=== PATIENT | male | born 1950 | race Caucasian/White ===

== ENCOUNTER 2020-09-29 05:57 | Observation (INO) | payer MEDICARE, MEDICAID, SELFPAY ==
[2020-09-29] VITALS (18 sets, daily range): BP systolic 112–161; BP diastolic 67–93; PULSE 63–86; RESP 18–32; TEMP 35.9–36.8; O2SAT 94–99; BMI 38.5
--- NOTE | 2020-09-29 06:10 | ED.CHESTPAIN ---
HPI - Chest Pain <Keshia Bell, DO - Last Filed: 10/02/20 18:05> General Chief Complaint: Shortness of Breath/Dyspnea Stated Complaint: chest pain Time Seen by Provider: 09/29/20 06:10 Source: patient and EMS Mode of arrival: EMS Limitations: no limitations History of Present Illness HPI narrative: This is a 70-year-old male comes to the emergency department with complaint of increasing shortness of breath that has become significantly worse today. Patient states he has had slowly worsening shortness of breath orthopnea requiring him to sit more and more upright, patient has also has some chest discomfort although he states he does not pressure or pain in his chest at this time. Patient denies any fevers or chills. He has had some nasal congestion since he had his COVID vaccination September 18. Patient states he has a chronic cough which is nonproductive and has not changed. He denies any abdominal pain. He denies any diaphoresis, no nausea or vomiting. He denies any major changes to bowel movements, no melena or bright red blood. He has chronic urinary incontinence. He states he has had some swelling in his lower extremity extremities. Patient states his weight has also been increasing. Patient has had a history significant for pacemaker, cardiac stents x2 and aortic valve replacement he is on Eliquis chronically. He has no prostate cancer and has had radiation x2. Dyslipidemia, diabetes and hypertension. He also has history of restless legs syndrome and patient does use CPAP at his assisted living facility. He states his prior surgeries include back surgery. He is allergic to morphine, crab and carbidopa. He quit using tobacco and alcohol many years ago. He has not used any recreational drugs in 40 years. He follows with Dr. Alvares with the [facility] in [facility]. Related Data Home Medications Medication Instructions Recorded Confirmed Adult Multi plus [place]-3 1,000 mg PO BID 09/29/20 09/29/20 Mirapex 0.5 mg PO BEDTIME 09/29/20 09/29/20 Plavix 75 mg PO QAM 09/29/20 09/29/20 Zoloft 100 mg PO QAM 09/29/20 09/29/20 apixaban 5 mg PO BID 09/29/20 09/29/20 calcium carbonate 500 mg PO QAM 09/29/20 09/29/20 gabapentin 600 mg PO TID 09/29/20 09/29/20 insulin glargine 42 unit SUBCUT BEDTIME 09/29/20 09/29/20 insulin lispro See Rx Instructions .ROUTE .COMPLEX 09/29/20 09/29/20 metformin 500 mg PO BID 09/29/20 09/29/20 metoprolol succinate 12.5 mg PO QAM 09/29/20 09/29/20 pantoprazole 40 mg PO QAM 09/29/20 09/29/20 tolterodine [Detrol LA] 4 mg PO Q24H 09/29/20 09/29/20 Previous Rx's Medication Instructions Recorded furosemide [Lasix] 40 mg PO QAM 30 Days #60 tab 09/30/20 Allergies Allergy/AdvReac Type Severity Reaction Status Date / Time carbidopa Allergy Verified 09/29/20 06:08 crab Allergy Verified 09/29/20 06:07 morphine Allergy Verified 09/29/20 06:07 Review of Systems <Keshia Bell DO - Last Filed: 10/02/20 18:05> Review of Systems ROS Unobtainable: All systems reviewed & are unremarkable except as noted in HPI and below Patient History <Keshia Bell DO - Last Filed: 10/02/20 18:05> Medical History Pacemaker Surgical History H/O aortic valve replacement History of back surgery Social History household members: none Smoking Status: Former smoker Exam <Keshia Bell DO - Last Filed: 10/02/20 18:05> Narrative Exam Narrative: GENERAL: Alert and oriented x three, BMI of 38, elderly appearing male in mild to moderate distress. HEENT: Head normocephalic, atraumatic, EOMI, pupils reactive, face symmetric, moist mucous membranes NECK: Supple, full range of motion CARDIOVASCULAR: Regular rate and rhythm without murmurs, rubs or gallops. Trace edema bilateral lower extremities. RESPIRATORY: Breath sounds equal bilaterally, no wheezes rales or rhonchi. Patient is mildly tachypneic. Speaks is 5-6 word sentences. No accessory muscle use. ABDOMEN: Soft, nontender. Normoactive bowel sounds all 4 quadrants. No guarding or rebound, rigidity, no mass : No CVA tenderness EXTREMITIES: Normal range of motion, no clubbing.. Neurovascularly intact NEUROLOGICAL: Cranial nerves II through XII grossly intact. Moving all extremities SKIN: Warm, dry, no petechiae, no rashes or lesions. Initial Vital Signs Initial Vital Signs: Vital Signs Pulse Rate 84 09/29/20 06:00 Blood Pressure 156/84 H 09/29/20 06:00 Pulse Oximetry 96 09/29/20 06:00 <Delivn Chavarria MD - Last Filed: 09/29/20 09:50> Initial Vital Signs Initial Vital Signs: Vital Signs Pulse Rate 84 09/29/20 06:00 Blood Pressure 156/84 H 09/29/20 06:00 Pulse Oximetry 96 09/29/20 06:00 Course <Keshia Bell DO - Last Filed: 10/02/20 18:05> Orders Ordered: Discontinued Medications Acetaminophen (Acetaminophen 325 Mg Tablet) 650 mg PO Q6HR PRN PRN Reason: Fever/Mild Pain (1-3) Last Admin: 09/29/20 23:18 Dose: 650 mg Documented by: AILYN Acetaminophen (Acetaminophen 325 Mg Tablet) 650 mg PO Q4H PRN PRN Reason: Fever/Mild Pain (1-3) Last Admin: 09/30/20 03:50 Dose: 650 mg Documented by: UDAY Apixaban (Apixaban 5 Mg Tablet) 5 mg PO BID PENDING SALE TO [facility] Last Admin: 09/30/20 08:26 Dose: 5 mg Documented by: Admin: 09/29/20 21:03 Dose: 5 mg Documented by: Admin: 09/29/20 13:01 Dose: 5 mg Documented by: UDAY Clopidogrel Bisulfate (Clopidogrel 75 Mg Tablet) 75 mg PO DAILY PENDING SALE TO [facility] Last Admin: 09/30/20 09:31 Dose: 75 mg Documented by: Admin: 09/29/20 13:01 Dose: 75 mg Documented by: UDAY Dextrose (Dextrose 50 % In Water 25 Gm/50 Ml Syringe) 25 gm IV PRN PRN; Protocol PRN Reason: Hypoglycemia Furosemide (Furosemide 100 Mg/10 Ml Vial) 60 mg IV NOW ONE Stop: 09/29/20 06:41 Last Admin: 09/29/20 06:49 Dose: 60 mg Documented by: NAVDEEP Furosemide (Furosemide 40 Mg/4 Ml Vial) 40 mg IV 0500,1700 PENDING SALE TO [facility] Last Admin: 09/29/20 13:02 Dose: 40 mg Documented by: UDAY Furosemide (Furosemide 40 Mg/4 Ml Vial) 40 mg IV 0700,1900 PENDING SALE TO [facility] Last Admin: 09/30/20 06:43 Dose: 40 mg Documented by: Admin: 09/29/20 19:07 Dose: 40 mg Documented by: AILYN Gabapentin (Gabapentin 600 Mg Tablet) 600 mg PO TID PENDING SALE TO [facility] Last Admin: 09/30/20 08:26 Dose: 600 mg Documented by: Admin: 09/29/20 21:03 Dose: 600 mg Documented by: Admin: 09/29/20 14:25 Dose: 600 mg Documented by: UDAY Insulin Aspart (Insulin Aspart 100 Unit/Ml Insuln Pen) 0 unit SUBCUT ACHS PENDING SALE TO [facility]; Protocol Last Admin: 09/30/20 13:24 Dose: Not Given Documented by: Admin: 09/30/20 09:16 Dose: 1 unit Documented by: UDAY Cosigned by: STEFFI Admin: 09/29/20 20:36 Dose: Not Given Documented by: Admin: 09/29/20 16:58 Dose: 1 unit Documented by: AILYN Catalanigned by: LUCRETIA Insulin Glargine (Insulin Glargine 100 Unit/Ml 3ml Pen) 40 unit SUBCUT BEDTIME PENDING SALE TO [facility] Last Admin: 09/29/20 21:03 Dose: 40 unit Documented by: AILYN Catalanigned by: GPMARIAH Metoprolol Succinate (Metoprolol Er 25 Mg Tablet) 12.5 mg PO DAILY PENDING SALE TO [facility] Last Admin: 09/30/20 08:26 Dose: 12.5 mg Documented by: Admin: 09/29/20 13:01 Dose: 12.5 mg Documented by: UDAY Potassium Chloride (Potassium Chloride 20 Meq Tab) 40 meq PO NOW ONE Stop: 09/30/20 09:25 Last Admin: 09/30/20 09:31 Dose: 40 meq Documented by: UDAY Sertraline HCl (Sertraline 50 Mg Tablet) 100 mg PO DAILY PENDING SALE TO [facility] Last Admin: 09/30/20 08:27 Dose: 100 mg Documented by: Admin: 09/29/20 13:01 Dose: 100 mg Documented by: UDAY Sodium Chloride (Sodium Chloride 0.9% Flush) 10 ml IV PRN PRN PRN Reason: Flush Sodium Chloride (Sodium Chloride 0.9% Flush) 10 ml IV BID PENDING SALE TO [facility] Last Admin: 09/30/20 08:27 Dose: 10 ml Documented by: Admin: 09/29/20 21:03 Dose: 10 ml Documented by: AILYN Vital Signs Vital signs: Vital Signs - 8 hr 09/29/20 06:00 09/29/20 06:08 09/29/20 06:30 Temperature 98.2 F Pulse Rate 84 86 67 Respiratory Rate 26 H 30 H Blood Pressure 156/84 H 156/84 H 143/67 H Pulse Oximetry 96 96 95 09/29/20 07:00 09/29/20 07:30 09/29/20 08:00 Temperature Pulse Rate 75 78 67 Respiratory Rate 24 30 H 23 Blood Pressure 144/71 H 149/80 H 161/79 H Pulse Oximetry 97 97 98 <Delvin Chavarria MD - Last Filed: 09/29/20 09:50> Course Course Narrative: 7:00 a.m.. Sign-out from Dr. bell labs are pending. Likely admit for CHF exacerbation. Decision to Admit Date: 09/29/20 Decision to Admit time: 08:09 Orders Ordered: Discontinued Medications Acetaminophen (Acetaminophen 325 Mg Tablet) 650 mg PO Q6HR PRN PRN Reason: Fever/Mild Pain (1-3) Last Admin: 09/29/20 23:18 Dose: 650 mg Documented by: AILYN Acetaminophen (Acetaminophen 325 Mg Tablet) 650 mg PO Q4H PRN PRN Reason: Fever/Mild Pain (1-3) Last Admin: 09/30/20 03:50 Dose: 650 mg Documented by: UDAY Apixaban (Apixaban 5 Mg Tablet) 5 mg PO BID PENDING SALE TO [facility] Last Admin: 09/30/20 08:26 Dose: 5 mg Documented by: Admin: 09/29/20 21:03 Dose: 5 mg Documented by: Admin: 09/29/20 13:01 Dose: 5 mg Documented by: UDAY Clopidogrel Bisulfate (Clopidogrel 75 Mg Tablet) 75 mg PO DAILY PENDING SALE TO [facility] Last Admin: 09/30/20 09:31 Dose: 75 mg Documented by: Admin: 09/29/20 13:01 Dose: 75 mg Documented by: UDAY Dextrose (Dextrose 50 % In Water 25 Gm/50 Ml Syringe) 25 gm IV PRN PRN; Protocol PRN Reason: Hypoglycemia Furosemide (Furosemide 100 Mg/10 Ml Vial) 60 mg IV NOW ONE Stop: 09/29/20 06:41 Last Admin: 09/29/20 06:49 Dose: 60 mg Documented by: NAVDEEP Furosemide (Furosemide 40 Mg/4 Ml Vial) 40 mg IV 0500,1700 PENDING SALE TO [facility] Last Admin: 09/29/20 13:02 Dose: 40 mg Documented by: UDAY Furosemide (Furosemide 40 Mg/4 Ml Vial) 40 mg IV 0700,1900 PENDING SALE TO [facility] Last Admin: 09/30/20 06:43 Dose: 40 mg Documented by: Admin: 09/29/20 19:07 Dose: 40 mg Documented by: AILYN Gabapentin (Gabapentin 600 Mg Tablet) 600 mg PO TID PENDING SALE TO [facility] Last Admin: 09/30/20 08:26 Dose: 600 mg Documented by: Admin: 09/29/20 21:03 Dose: 600 mg Documented by: Admin: 09/29/20 14:25 Dose: 600 mg Documented by: UDAY Insulin Aspart (Insulin Aspart 100 Unit/Ml Insuln Pen) 0 unit SUBCUT ACHS PENDING SALE TO [facility]; Protocol Last Admin: 09/30/20 13:24 Dose: Not Given Documented by: Admin: 09/30/20 09:16 Dose: 1 unit Documented by: UDAY Cosigned by: STEFFI Admin: 09/29/20 20:36 Dose: Not Given Documented by: Admin: 09/29/20 16:58 Dose: 1 unit Documented by: AILYN Tillman by: LLANTKavya Insulin Glargine (Insulin Glargine 100 Unit/Ml 3ml Pen) 40 unit SUBCUT BEDTIME PENDING SALE TO [facility] Last Admin: 09/29/20 21:03 Dose: 40 unit Documented by: AILYN Catalanigned by: GPEREZ Metoprolol Succinate (Metoprolol Er 25 Mg Tablet) 12.5 mg PO DAILY PENDING SALE TO [facility] Last Admin: 09/30/20 08:26 Dose: 12.5 mg Documented by: Admin: 09/29/20 13:01 Dose: 12.5 mg Documented by: UDAY Potassium Chloride (Potassium Chloride 20 Meq Tab) 40 meq PO NOW ONE Stop: 09/30/20 09:25 Last Admin: 09/30/20 09:31 Dose: 40 meq Documented by: UDAY Sertraline HCl (Sertraline 50 Mg Tablet) 100 mg PO DAILY PENDING SALE TO [facility] Last Admin: 09/30/20 08:27 Dose: 100 mg Documented by: Admin: 09/29/20 13:01 Dose: 100 mg Documented by: UDAY Sodium Chloride (Sodium Chloride 0.9% Flush) 10 ml IV PRN PRN PRN Reason: Flush Sodium Chloride (Sodium Chloride 0.9% Flush) 10 ml IV BID PENDING SALE TO [facility] Last Admin: 09/30/20 08:27 Dose: 10 ml Documented by: Admin: 09/29/20 21:03 Dose: 10 ml Documented by: AILYN Reevaluation(s) Reevaluation #1: Reviewed results with patient. He states he has been short of breath in the past week. Feels like CHF exacerbation/fluid overload. Swelling of the ankles uncommon for him. He agrees with admission Time: 08:10 Consultations Consultation #1: Spoke with hospitalist, Dr. Bowen, will admit Time: 08:13 Vital Signs Vital signs: Vital Signs - 8 hr 09/29/20 06:00 09/29/20 06:08 09/29/20 06:30 Temperature 98.2 F Pulse Rate 84 86 67 Respiratory Rate 26 H 30 H Blood Pressure 156/84 H 156/84 H 143/67 H Pulse Oximetry 96 96 95 09/29/20 07:00 09/29/20 07:30 09/29/20 08:00 Temperature Pulse Rate 75 78 67 Respiratory Rate 24 30 H 23 Blood Pressure 144/71 H 149/80 H 161/79 H Pulse Oximetry 97 97 98 MDM - Chest Pain <Keshia Bell DO - Last Filed: 10/02/20 18:05> Lab Data Attestation: I reviewed the patient's lab results. Result diagrams: 09/30/20 05:15 09/30/20 05:15 Labs: Lab Results 09/29/20 09/29/20 09/29/20 Range/Units 05:55 05:55 06:00 WBC 9.4 (4.5-11.0) X10^3/uL RBC 4.58 (4.5-5.9) X10^6/uL Hgb 10.8 L (13.5-17.5) g/dL Hct 33.9 L (41-53) % MCV 74.0 L (80-100) fL MCH 23.5 L (26-34) PG MCHC 31.8 (30-36) % RDW 16.9 H (11.6-14.8) % Plt Count TNP Neut % (Auto) 72.3 (50-75) % Lymph % (Auto) 15.8 L (25-40) % [place] % (Auto) 7.1 (3-14) % Eos % (Auto) 3.8 (2-4) % Baso % (Auto) 1.0 (0-2) % Neut # (Auto) 6800 (8855-6446) /uL Lymph # (Auto) 1500 (5189-4498) /uL [place] # (Auto) 700 (0-900) /uL Eos # (Auto) 400 (0-450) /uL Baso # (Auto) 100 (0-100) /uL Platelet Estimate Adequate on smear Plt Morphology Comment RBC Morphology See below Hypochromasia 1+ H Anisocytosis 1+ H Microcytosis 1+ H Ovalocytes 1+ H PT (10.1-12.7) SECONDS INR (0.9-1.3) APTT (26.4-36.2) SECONDS D-Dimer (<230) ng/mL Sodium 140 (137-145) mmol/L Potassium 3.9 (3.4-5.1) mmol/L Chloride 107 (98-107) mmol/L Carbon Dioxide 23 (22-32) mmol/L BUN 16 (9-20) mg/dL Creatinine 1.29 H (0.66-1.25) mg/dL Estimated GFR 54.7 L (>60) mL/min BUN/Creatinine Ratio 12.4 (6-22) Glucose 170 H (80-110) mg/dL Calcium 9.0 (8.4-10.2) mg/dL Total Bilirubin 0.3 (0.2-1.3) mg/dL AST 21 (17-59) IU/L ALT 14 (<50) IU/L Alkaline Phosphatase 83 (38-126) U/L Total Creatine Kinase 28 L (55-170) U/L CK-MB (CK-2) TNP CK-MB (CK-2) Rel Index TNP Troponin I 0.032 (0.01-0.034) ng/mL NT-Pro-B Natriuret Pep 3730 H (<125) pg/mL Total Protein 6.9 (6.3-8.2) g/dL Albumin 4.0 (3.5-5.0) g/dL Globulin 2.9 (1.7-4.1) g/dL Albumin/Globulin Ratio 1.4 (1.0-2.8) Lipase 122 (23-300) U/L SARS-CoV-2 (PCR) Negative (Negative) 09/29/20 09/29/20 Range/Units 06:20 08:05 WBC (4.5-11.0) X10^3/uL RBC (4.5-5.9) X10^6/uL Hgb (13.5-17.5) g/dL Hct (41-53) % MCV (80-100) fL MCH (26-34) PG MCHC (30-36) % RDW (11.6-14.8) % Plt Count Neut % (Auto) (50-75) % Lymph % (Auto) (25-40) % [place] % (Auto) (3-14) % Eos % (Auto) (2-4) % Baso % (Auto) (0-2) % Neut # (Auto) (5800-3555) /uL Lymph # (Auto) (3527-3724) /uL [place] # (Auto) (0-900) /uL Eos # (Auto) (0-450) /uL Baso # (Auto) (0-100) /uL Platelet Estimate Plt Morphology Comment RBC Morphology Hypochromasia Anisocytosis Microcytosis Ovalocytes PT 13.4 H (10.1-12.7) SECONDS INR 1.2 (0.9-1.3) APTT 35 (26.4-36.2) SECONDS D-Dimer 206 (<230) ng/mL Sodium (137-145) mmol/L Potassium (3.4-5.1) mmol/L Chloride (98-107) mmol/L Carbon Dioxide (22-32) mmol/L BUN (9-20) mg/dL Creatinine (0.66-1.25) mg/dL Estimated GFR (>60) mL/min BUN/Creatinine Ratio (6-22) Glucose (80-110) mg/dL Calcium (8.4-10.2) mg/dL Total Bilirubin (0.2-1.3) mg/dL AST (17-59) IU/L ALT (<50) IU/L Alkaline Phosphatase (38-126) U/L Total Creatine Kinase (55-170) U/L CK-MB (CK-2) CK-MB (CK-2) Rel Index Troponin I 0.028 (0.01-0.034) ng/mL NT-Pro-B Natriuret Pep (<125) pg/mL Total Protein (6.3-8.2) g/dL Albumin (3.5-5.0) g/dL Globulin (1.7-4.1) g/dL Albumin/Globulin Ratio (1.0-2.8) Lipase (23-300) U/L SARS-CoV-2 (PCR) (Negative) Imaging Data Chest x-ray: Attestation: I personally reviewed and interpreted this imaging study as follows: My Impression: cardiomegaly, pacemaker with wires in place. CHF. ECG Data Attestation: I personally reviewed and interpreted this ECG as follows: Interpretation: Ventricularly paced rhythm, rate 82 QRS of 214, QTC of 586. No prior available. MDM Narrative Medical decision making narrative: This is a 70 year old male with complaint of shortness of breath. Patient has had slowly worsening symptoms consistent with CHF. He is hospitalized and is not particularly ambulatory so D-dimer was included which is negative. BNP is quite elevated with a consistent chest x-ray. Troponin appropriate range and patient has not had any hypoxia here in the department at this time. Patient received Lasix. Patient was signed out to Dr. Chavarria while awaiting repeat troponin and observation for final disposition. <Delvin Chavarria MD - Last Filed: 09/29/20 09:50> Differential Diagnosis Differential diagnosis: Likely atypical chest pain and other (CHF exacerbation) Medical Records Data Attestation: I reviewed the patient's medical records. Lab Data Attestation: I reviewed the patient's lab results. Labs: Lab Results 09/29/20 09/29/20 09/29/20 Range/Units 05:55 05:55 06:00 WBC 9.4 (4.5-11.0) X10^3/uL RBC 4.58 (4.5-5.9) X10^6/uL Hgb 10.8 L (13.5-17.5) g/dL Hct 33.9 L (41-53) % MCV 74.0 L (80-100) fL MCH 23.5 L (26-34) PG MCHC 31.8 (30-36) % RDW 16.9 H (11.6-14.8) % Plt Count TNP Neut % (Auto) 72.3 (50-75) % Lymph % (Auto) 15.8 L (25-40) % [place] % (Auto) 7.1 (3-14) % Eos % (Auto) 3.8 (2-4) % Baso % (Auto) 1.0 (0-2) % Neut # (Auto) 6800 (3601-8035) /uL Lymph # (Auto) 1500 (8663-7012) /uL [place] # (Auto) 700 (0-900) /uL Eos # (Auto) 400 (0-450) /uL Baso # (Auto) 100 (0-100) /uL Platelet Estimate Adequate on smear Plt Morphology Comment RBC Morphology See below Hypochromasia 1+ H Anisocytosis 1+ H Microcytosis 1+ H Ovalocytes 1+ H PT (10.1-12.7) SECONDS INR (0.9-1.3) APTT (26.4-36.2) SECONDS D-Dimer (<230) ng/mL Sodium 140 (137-145) mmol/L Potassium 3.9 (3.4-5.1) mmol/L Chloride 107 (98-107) mmol/L Carbon Dioxide 23 (22-32) mmol/L BUN 16 (9-20) mg/dL Creatinine 1.29 H (0.66-1.25) mg/dL Estimated GFR 54.7 L (>60) mL/min BUN/Creatinine Ratio 12.4 (6-22) Glucose 170 H (80-110) mg/dL Calcium 9.0 (8.4-10.2) mg/dL Total Bilirubin 0.3 (0.2-1.3) mg/dL AST 21 (17-59) IU/L ALT 14 (<50) IU/L Alkaline Phosphatase 83 (38-126) U/L Total Creatine Kinase 28 L (55-170) U/L CK-MB (CK-2) TNP CK-MB (CK-2) Rel Index TNP Troponin I 0.032 (0.01-0.034) ng/mL NT-Pro-B Natriuret Pep 3730 H (<125) pg/mL Total Protein 6.9 (6.3-8.2) g/dL Albumin 4.0 (3.5-5.0) g/dL Globulin 2.9 (1.7-4.1) g/dL Albumin/Globulin Ratio 1.4 (1.0-2.8) Lipase 122 (23-300) U/L SARS-CoV-2 (PCR) Negative (Negative) 09/29/20 09/29/20 Range/Units 06:20 08:05 WBC (4.5-11.0) X10^3/uL RBC (4.5-5.9) X10^6/uL Hgb (13.5-17.5) g/dL Hct (41-53) % MCV (80-100) fL MCH (26-34) PG MCHC (30-36) % RDW (11.6-14.8) % Plt Count Neut % (Auto) (50-75) % Lymph % (Auto) (25-40) % [place] % (Auto) (3-14) % Eos % (Auto) (2-4) % Baso % (Auto) (0-2) % Neut # (Auto) (2826-7426) /uL Lymph # (Auto) (4171-7918) /uL [place] # (Auto) (0-900) /uL Eos # (Auto) (0-450) /uL Baso # (Auto) (0-100) /uL Platelet Estimate Plt Morphology Comment RBC Morphology Hypochromasia Anisocytosis Microcytosis Ovalocytes PT 13.4 H (10.1-12.7) SECONDS INR 1.2 (0.9-1.3) APTT 35 (26.4-36.2) SECONDS D-Dimer 206 (<230) ng/mL Sodium (137-145) mmol/L Potassium (3.4-5.1) mmol/L Chloride (98-107) mmol/L Carbon Dioxide (22-32) mmol/L BUN (9-20) mg/dL Creatinine (0.66-1.25) mg/dL Estimated GFR (>60) mL/min BUN/Creatinine Ratio (6-22) Glucose (80-110) mg/dL Calcium (8.4-10.2) mg/dL Total Bilirubin (0.2-1.3) mg/dL AST (17-59) IU/L ALT (<50) IU/L Alkaline Phosphatase (38-126) U/L Total Creatine Kinase (55-170) U/L CK-MB (CK-2) CK-MB (CK-2) Rel Index Troponin I 0.028 (0.01-0.034) ng/mL NT-Pro-B Natriuret Pep (<125) pg/mL Total Protein (6.3-8.2) g/dL Albumin (3.5-5.0) g/dL Globulin (1.7-4.1) g/dL Albumin/Globulin Ratio (1.0-2.8) Lipase (23-300) U/L SARS-CoV-2 (PCR) (Negative) Imaging Data Chest x-ray: Radiologist's Impression: [address] [id number] ReportSigned Patient: Michela Álvarez#: [id number]: 8Acct:[id number]/Sex: 70 / MDate of Service: 09/29/20Loc: EDAccession Number: [id number] Procedure: XR chest 1V Ordering Provider: Keshia Bell D.O. PROCEDURE: XR CHEST 1V INDICATIONS: Short of breath, worsening orthopnea TECHNIQUE: One view of the chest was acquired. COMPARISON: [facility], CR, XR CHEST 1 VIEW, 07/27/2020, 18:06. [facility], CR, XR CHEST 1 VIEW, 04/02/2020, 17:27. [facility], CR, XR CHEST 1 VIEW, 04/01/2020, 16:24. FINDINGS: Surgical changes and devices: A pacer device is seen. The leads are seen in stable positions. A percutaneously placed aortic valve replacement can be seen. Lungs and pleura: Low lung volumes are noted. This causes a crowded appearance to the lung markings and limits evaluation. Generalized interstitial prominence is seen. Trace pleural are seen Mediastinum: Mediastinal contours appear normal. Heart size is mildly enlarged. Bones and chest wall: No suspicious bony lesions. Age-appropriate bony degenerative changes are seen. Overlying soft tissues appear unremarkable. IMPRESSION: Mild cardiomegaly interstitial prominence and pleural effusions. Please correlate with patient presentation, physical examination findings, and laboratory values for congestive heart failure. Postoperative and degenerative changes are seen. Note: This case (including differences between this final report and the preliminary report) discussed by telephone with Dr. Chavarria at 6:45 a.m. [place] time on September 29, 2020. Dictated by: Yong Morley M.D. on 09/29/2020 at 6:43 Approved by: Yong Morley M.D. on 09/29/2020 at 6:46 ECG Data Attestation: I personally reviewed and interpreted this ECG as follows: Interpretation: Ventricular paced rhythm rate 82, no ST elevation or depression MDM Narrative Medical decision making narrative: Appropriate for admission. Patient will need diuresis for CHF exacerbation. Patient agrees with treatment plan. Discharge Plan Departure Patient Disposition: Admitted as Observation Clinical Impression: Congestive heart failure Qualifiers: Heart failure type: unspecified Heart failure chronicity: unspecified Qualified Code(s): I50.9 - Heart failure, unspecified Admit Date/Time: 09/29/20 08:12 Admit Provider: He Culp
[2020-09-29 06:21] LABS: Alanine Aminotransferase 14 IU/L (<50); Albumin Globulin Ratio 1.4 (1.0-2.8); Alkaline Phosphatase 83 U/L (38-126); Aspartate Aminotransferase 21 IU/L (17-59); BUN Creatinine Ratio 12.4 (6-22); Bilirubin Total 0.3 mg/dL (0.2-1.3); Blood Urea Nitrogen 16 mg/dL (9-20); Carbon Dioxide 23 mmol/L (22-32); Chloride 107 mmol/L (98-107); Creatine Kinase 28 U/L (55-170); Estimated Glomerular Filt Rate 54.7 mL/min (>60); Globulin 2.9 g/dL (1.7-4.1); Glucose 170 mg/dL (80-110); HEMOLYSIS < 15 (0-50); Lipase 122 U/L (23-300); Potassium 3.9 mmol/L (3.4-5.1); Sodium 140 mmol/L (137-145); Total Protein 6.9 g/dL (6.3-8.2)
[2020-09-29 06:33] LABS: Basophils Absolute Auto 100 /uL (0-100); Eosinophils Absolute Auto 400 /uL (0-450); Eosinophils Percent Auto 3.8 % (2-4); Hematocrit 33.9 % (41-53); Hemoglobin 10.8 g/dL (13.5-17.5); Lymphocytes Absolute Auto 1500 /uL (1100-4500); Lymphocytes Percent Auto 15.8 % (25-40); Mean Corpuscular HGB Conc 31.8 % (30-36); Mean Corpuscular Hemoglobin 23.5 PG (26-34); Monocytes Absolute Auto 700 /uL (0-900); Monocytes Percent Auto 7.1 % (3-14); Neutrophils Absolute Auto 6800 /uL (1500-7000); Neutrophils Percent Auto 72.3 % (50-75); Red Blood Cell Count 4.58 X10^6/uL (4.5-5.9); Red Cell Distribution Width 16.9 % (11.6-14.8); White Blood Cell Count 9.4 X10^3/uL (4.5-11.0)
[2020-09-29 06:34] LABS: NT-proBNP (BNP-Adult 18+) 3730 pg/mL (<125); Troponin I 0.032 ng/mL (0.01-0.034)
[2020-09-29 06:40] LABS: Add Manual Diff / Slide Review SLIDE REVIEW
[2020-09-29 06:47] LABS: INR 1.2 (0.9-1.3); Prothrombin Time 13.4 SECONDS (10.1-12.7)
[2020-09-29 06:49] LABS: PTT Partial Thromboplastin Tim 35 SECONDS (26.4-36.2)
[2020-09-29] MEDS: FUROSEMIDE 100 MG/10 ML VIAL 60 MG IV (06:49)
[2020-09-29 06:50] LABS: D Dimer 206 ng/mL (<230)
[2020-09-29 07:12] LABS: COVID19 - ADMIT (NP swab/PCR) Negative (Negative)
[2020-09-29 07:30] LABS: Anisocytosis 1+; Hypochromasia 1+; Microcytosis 1+; Platelet Estimate Adequate on smear
[2020-09-29 07:31] LABS: Ovalocytes 1+
[2020-09-29 08:46] LABS: Troponin I 0.028 ng/mL (0.01-0.034)
--- NOTE | 2020-09-29 11:48 | DI.ECHO.S_ITS ---
[place]---------+ [facility] +---------+ : : [address] : [address] : : : : [id number] : : : : Phone: [phone]+ Echocardiogram Report + + :Name: SREEDHAR PALACIO Study Date: 09/29/2020 Height: 69 in : :[facility] ReadingLocation: Weight: 261 lb : : Gender: Male BSA: 2.3 m2 : :: 1950 Age: 70 yrs BP: 130/77 mmHg: :Reason For Study: Congestive Heart Failure : :Ordering Physician: : :ALLA HERNANDEZ Performed By: Lior Obrien : :Referring: ALLA HERNANDEZ : + + Interpretation Summary 1) Severely dilated left ventricular enlargement with moderately increased thickness (concentric) and severely reduced systolic function (EF 20-25%). 2) Normal right ventricular size and function. There is a pacemaker lead in the right ventricle. 3) There ronnie prosthetic aortic valve that is well-seated and opens well. Mean gradient across the valve is 15.6mmHg (normal for this kind of valve). 4) Compared to the Echo done 07/28/2020, no significant change when compared visually. Procedure: A two-dimensional transthoracic echocardiogram with color flow and Doppler was performed. The study quality was technically adequate. Comparison is made with the echocardiogram of 07/28/2020. A contrast injection of Definity was performed to improve assessment of LV function. The patient was in sinus rhythm with heart rates between 65-72 bpm during the exam. Left Ventricle: The left ventricle is severely dilated. There is moderate concentric left ventricular hypertrophy. Left ventricular systolic function is severely reduced. The ejection fraction is estimated to be 20-25%. There is severe global hypokinesis of the left ventricle. There is a significant dyssynchronous contraction pattern due to the paced rhythm. Diastolic function could not be accurately assessed due to unobtainable data. Right Ventricle: The right ventricle is normal in size and function. There is a pacemaker lead in the right ventricle. Atria: Both atria are normal in size. There is no Doppler evidence for an interatrial shunt. Mitral Valve: The mitral valve is normal in structure and function. There is mild mitral regurgitation. Aortic Valve: The prosthetic aortic valve is well-seated. The aortic valve mean gradient is 15.6 mmHg. No aortic regurgitation is present. Tricuspid Valve: The tricuspid valve is normal in structure and function. There is mild tricuspid regurgitation. Pulmonary artery pressures cannot be estimated because of the lack of a measurable TR jet velocity but the IVC suggests a CVP of around 8 mmHg. Pulmonic Valve: The pulmonic valve is not well visualized. There is trace pulmonic regurgitation. Great Vessels: The aortic root is not well visualized. The dimensions of the ascending aorta are normal. The IVC is dilated (diameter is greater than 2.1 cm) yet it collapses greater than 50% with a sniff. This suggests a right atrial pressure of 8 mm Hg. Pericardium/ Pleura There is no pericardial effusion. There is an anterior echo-free space consistent with a fat pad. There is no pleural effusion. MMode/2D Measurements & Calculations LVIDd: 7.1 cm asc Aorta Diam: 3.5 cm LVIDs: 6.1 cm FS: 13.6 % IVSd: 1.5 cm LVPWd: 1.6 cm LV ramirez. diameter/BSA (cm/m^2): 3.0 LV sys. diameter/BSA (cm/m^2): 2.6 LA A2 area: 21.8 cm2 RA long axis: 4.9 cm LA A4 area: 27.2 cm2 RA area: 15.6 cm2 LA length (vol): 6.5 cm RA vol: 41.9 ml LA vol: 78.1 ml RA : 18.1 ml/m2 LA vol index: 33.8 ml/m2 IVC diam: 2.5 cm TAPSE: 2.3 cm Doppler Measurements & Calculations Ao V2 max: 282.9 cm/sec LVOT Max Jasbir: 99.1 cm/sec Ao V2 mean: 184.1 cm/sec LV V1 max P.9 mmHg Ao max P.0 mmHg LV V1 VTI: 22.3 cm Ao mean P.6 mmHg sev ratio: 0.41 Ao V2 VTI: 54.6 cm MV E max jasbir: 67.6 cm/sec PA V2 max: 100.9 cm/sec MV A max jasbir: 93.9 cm/sec PA V2 mean: 73.9 cm/sec MV E/A: 0.72 PA mean P.4 mmHg Med Peak E' Jasbir: 3.5 cm/sec PA pr(Accel): 35.3 mmHg E/E' med: 19.2 Lat Peak E' Jasbir: 5.3 cm/sec E/E' lat: 12.8 E/e' average: 16.0 MV dec time: 0.19 sec Reading Physician:02:48 PM
[2020-09-29] MEDS: APIXABAN 5 MG TABLET PO ×2 (13:01→21:03)
[2020-09-29] MEDS: CLOPIDOGREL 75 MG TABLET PO (13:01)
[2020-09-29] MEDS: SERTRALINE 50 MG TABLET 100 MG PO (13:01)
[2020-09-29] MEDS: METOPROLOL ER 25 MG TABLET 12.5 MG PO (13:01)
[2020-09-29] MEDS: FUROSEMIDE 40 MG/4 ML VIAL IV ×2 (13:02→19:07)
[2020-09-29] MEDS: GABAPENTIN 600 MG TABLET PO ×2 (14:25→21:03)
[2020-09-29] MEDS: INSULIN ASPART 100 UNIT/ML INSULN PEN SUBCUT (16:58)
[2020-09-29] MEDS: SODIUM CHLORIDE 0.9% FLUSH 10 ML IV (21:03)
[2020-09-29] MEDS: INSULIN GLARGINE 100 UNIT/ML 3ML PEN 40 UNIT SUBCUT (21:03)
--- NOTE | 2020-09-29 22:09 | PM.HP.1 ---
History of Present Illness History of Present Illness Chief complaint: chest pain Narrative: Mr. Álvarez is a 70M with PMH CHF, CAD, s/p AVR, s/p PPM, DM on insulin, GERD, depression, prostate CA, restless leg who comes in with progressive shortness of breath. He noted that within the last two weeks he has developed worsening shortness of breath first noted with exertion. Now has noted shortness of breath while lying down. He has lower extremity edema. He has noted he has gained weight, and he has a dry cough. No fevers/chills. No chest pain. He has recently been living at a facility and as has meals prepared for him thinks his eating has been more healthy. He presented to the ED, he was noted to be tachypneic in the 20s, and prior to arrival was noted to be satting in the 80s. He was placed on oxygen. Workup was done that showed an EKG with paced rhythm. Labs notable for creatinine of 1.29 with unclear baseline. troponin was 0.032 then 0.028. BNP was 3730. Cxray showed cardiomegaly and pleural effusions. He was given a dose of lasix and admitted for further treatment. Patient History Medical History Pacemaker Surgical History H/O aortic valve replacement History of back surgery Family & Social History Social History: household members none Prior Living Arrangements Assisted Living Safety & Behavioral: Feels Safe in Current Yes Environment Been Physically Hurt or No Threatened By a Person Suicidal Ideation Description None Suicide Plan Description No Plan Tobacco & Substance use: Smoking Status Former smoker Substance Use Type former substance user Meds Home Medications and Allergies Home Medications Medication Instructions Recorded Confirmed Type Adult Multi plus [place]-3 1,000 mg PO BID 09/29/20 09/29/20 History Mirapex 0.5 mg PO BEDTIME 09/29/20 09/29/20 History Plavix 75 mg PO QAM 09/29/20 09/29/20 History Zoloft 100 mg PO QAM 09/29/20 09/29/20 History apixaban 5 mg PO BID 09/29/20 09/29/20 History calcium carbonate 500 mg PO QAM 09/29/20 09/29/20 History furosemide [Lasix] 20 mg PO QAM 09/29/20 09/29/20 History gabapentin 600 mg PO TID 09/29/20 09/29/20 History insulin glargine 42 unit SUBCUT BEDTIME 09/29/20 09/29/20 History insulin lispro See Rx Instructions .ROUTE .COMPLEX 09/29/20 09/29/20 History metformin 500 mg PO BID 09/29/20 09/29/20 History metoprolol succinate 12.5 mg PO QAM 09/29/20 09/29/20 History pantoprazole 40 mg PO QAM 09/29/20 09/29/20 History tolterodine [Detrol LA] 4 mg PO Q24H 09/29/20 09/29/20 History Allergies Allergy/AdvReac Type Severity Reaction Status Date / Time carbidopa Allergy Verified 09/29/20 06:08 crab Allergy Verified 09/29/20 06:07 morphine Allergy Verified 09/29/20 06:07 Review of Systems Review of Systems Narrative: 14 systems reviewed and negative aside from HPI Exam Vital Signs (past 8 hours): - 09/29/20 14:26 09/29/20 15:00 09/29/20 15:05 Temperature 96.7 F L Pulse Rate 76 73 Respiratory Rate 19 Blood Pressure 133/73 112/93 H Pulse Oximetry 94 94 09/29/20 19:15 Temperature 97.6 F Pulse Rate 76 Respiratory Rate 18 Blood Pressure 154/93 H Pulse Oximetry 97 Oxygen Delivery Method Nasal Cannula Oxygen Flow Rate 0 Narrative Exam Narrative: GEN: no acute distress HEENT: PERRL, moist mucous membranes NECK: +jvd, trachea midline CV: RRR, no murmurs PULM: decreased sounds at bases, scattered crackles ABD: soft, nontender, nondistended, obese EXT: warm and well perfused, 1+ edema in feet NEURO: AAOx3, moving all extremities PSCYH: pleasant mood Objective Labs Result Diagrams: 09/29/20 05:55 09/29/20 05:55 Labs: Laboratory Results - last 24 hr 09/29/20 09/29/20 09/29/20 05:55 05:55 06:00 WBC 9.4 RBC 4.58 Hgb 10.8 L Hct 33.9 L MCV 74.0 L MCH 23.5 L MCHC 31.8 RDW 16.9 H Plt Count TNP Neut % (Auto) 72.3 Lymph % (Auto) 15.8 L [place] % (Auto) 7.1 Eos % (Auto) 3.8 Baso % (Auto) 1.0 Neut # (Auto) 6800 Lymph # (Auto) 1500 [place] # (Auto) 700 Eos # (Auto) 400 Baso # (Auto) 100 Platelet Estimate Adequate on smear Plt Morphology Comment RBC Morphology See below Hypochromasia 1+ H Anisocytosis 1+ H Microcytosis 1+ H Ovalocytes 1+ H PT INR APTT D-Dimer Sodium 140 Potassium 3.9 Chloride 107 Carbon Dioxide 23 BUN 16 Creatinine 1.29 H Estimated GFR 54.7 L BUN/Creatinine Ratio 12.4 Glucose 170 H Calcium 9.0 Total Bilirubin 0.3 AST 21 ALT 14 Alkaline Phosphatase 83 Total Creatine Kinase 28 L CK-MB (CK-2) TNP CK-MB (CK-2) Rel Index TNP Troponin I 0.032 NT-Pro-B Natriuret Pep 3730 H Total Protein 6.9 Albumin 4.0 Globulin 2.9 Albumin/Globulin Ratio 1.4 Lipase 122 SARS-CoV-2 (PCR) Negative 09/29/20 09/29/20 06:20 08:05 WBC RBC Hgb Hct MCV MCH MCHC RDW Plt Count Neut % (Auto) Lymph % (Auto) [place] % (Auto) Eos % (Auto) Baso % (Auto) Neut # (Auto) Lymph # (Auto) [place] # (Auto) Eos # (Auto) Baso # (Auto) Platelet Estimate Plt Morphology Comment RBC Morphology Hypochromasia Anisocytosis Microcytosis Ovalocytes PT 13.4 H INR 1.2 APTT 35 D-Dimer 206 Sodium Potassium Chloride Carbon Dioxide BUN Creatinine Estimated GFR BUN/Creatinine Ratio Glucose Calcium Total Bilirubin AST ALT Alkaline Phosphatase Total Creatine Kinase CK-MB (CK-2) CK-MB (CK-2) Rel Index Troponin I 0.028 NT-Pro-B Natriuret Pep Total Protein Albumin Globulin Albumin/Globulin Ratio Lipase SARS-CoV-2 (PCR) Assessment & Plan Assessment & Plan narrative: Mr. Álvarez is a 70M with PMH CAD, s/p PPM, s/p AVR, prostate CA, DM on insulin, HTN, restless leg who presents with shortness of breath and acute respiratory failure from CHF exacerbation. 1. Acute hypoxemic respiratory failure from Acute CHF exacerbation -clinical history of orthopnea, SOB, weight gain, with BNP high, and pleural effusions consistent with CHF -received lasix in ER and diuresed well -continue IV lasix BID -ECHO to eval EF, and functioning of AVR -monitor I/O closely -low Na diet 2. Type Diabetes on insulin -elevated blood sugar in the hospital -will continue on home dose of insulin -hold metformin for now with slightly elevated creatinine 3. Elevated creatinine -no baseline -creatinine today 1.54, GFR 55 -monitor daily to see if improvement 3. CAD s/p stents -no chest pain -chronic -continue plavix -no statin on med list, will need to clarity with patient 4. s/p PPM -chronic -EKG shows paced rhythm 5. s/p AVR -unclear if this is indication for apixaban -continue anticoagulation for now 6. Prostate cancer -chronic -outpatient follow up as needed, no acute issues 7. HTN -chronic -blood pressure controlled -continue metoprolol 8. Depression -chronic -continue zoloft 9. Restless leg -chronic -continue gabapentin DVT ppx: Full AC with apixaban IVF: None Diet: low na diet Code: Full, confirmed, proxy is daughter Arlet Dupree VTE Deep Vein Thrombosis/Pulmonary Embolism Present on Admission: No MIPS - Admit I confirm the patient?s Advance Care Plan is present, Code status is documented, Surrogate decision maker is in patient?s record [If Yes, STOP here]: Yes
[2020-09-29] MEDS: ACETAMINOPHEN 325 MG TABLET 650 MG PO (23:18)
[2020-09-30 03:07] VITALS: BP 121/73; PULSE 70; RESP 25; TEMP 36.3; O2SAT 96
[2020-09-30] MEDS: ACETAMINOPHEN 325 MG TABLET 650 MG PO (03:50)
[2020-09-30 05:55] LABS: Add Manual Diff / Slide Review NO; Basophils Absolute Auto 100 /uL (0-100); Basophils Percent Auto 1.2 % (0-2); Eosinophils Absolute Auto 400 /uL (0-450); Eosinophils Percent Auto 4.1 % (2-4); Hematocrit 32.6 % (41-53); Hemoglobin 10.3 g/dL (13.5-17.5); Lymphocytes Absolute Auto 1500 /uL (1100-4500); Lymphocytes Percent Auto 17.6 % (25-40); Mean Corpuscular HGB Conc 31.5 % (30-36); Mean Corpuscular Hemoglobin 23.1 PG (26-34); Mean Corpuscular Volume 73.4 fL (80-100); Monocytes Absolute Auto 900 /uL (0-900); Monocytes Percent Auto 10.3 % (3-14); Neutrophils Absolute Auto 5800 /uL (1500-7000); Neutrophils Percent Auto 66.8 % (50-75); Platelet Count 223 X10^3/uL (150-400); Red Blood Cell Count 4.44 X10^6/uL (4.5-5.9); Red Cell Distribution Width 17.2 % (11.6-14.8); White Blood Cell Count 8.7 X10^3/uL (4.5-11.0)
[2020-09-30 06:07] LABS: Blood Urea Nitrogen 19 mg/dL (9-20); Calcium 9.1 mg/dL (8.4-10.2); Carbon Dioxide 28 mmol/L (22-32); Chloride 104 mmol/L (98-107); Estimated Glomerular Filt Rate > 60.0 mL/min (>60); Glucose 143 mg/dL (80-110); HEMOLYSIS < 15 (0-50); Magnesium 2.1 mg/dL (1.6-2.3); Potassium 3.3 mmol/L (3.4-5.1); Sodium 141 mmol/L (137-145)
[2020-09-30] MEDS: FUROSEMIDE 40 MG/4 ML VIAL IV (06:43)
[2020-09-30 07:13] VITALS: O2SAT 96
[2020-09-30 07:45] VITALS: BP 110/55; PULSE 74; RESP 16; TEMP 35.8; O2SAT 91
[2020-09-30 08:26] VITALS: BP 110/55; PULSE 74
[2020-09-30] MEDS: GABAPENTIN 600 MG TABLET PO (08:26)
[2020-09-30] MEDS: APIXABAN 5 MG TABLET PO (08:26)
[2020-09-30] MEDS: METOPROLOL ER 25 MG TABLET 12.5 MG PO (08:26)
[2020-09-30] MEDS: SODIUM CHLORIDE 0.9% FLUSH 10 ML IV (08:27)
[2020-09-30] MEDS: SERTRALINE 50 MG TABLET 100 MG PO (08:27)
[2020-09-30] MEDS: INSULIN ASPART 100 UNIT/ML INSULN PEN SUBCUT (09:16)
[2020-09-30 09:31] VITALS: BP 112/57; PULSE 81
[2020-09-30] MEDS: POTASSIUM CHLORIDE 20 MEQ TAB 40 MEQ PO (09:31)
[2020-09-30] MEDS: CLOPIDOGREL 75 MG TABLET PO (09:31)
--- NOTE | 2020-09-30 10:47 | CM.DANOTE ---
DCP Note: ENERGY TECHNICIAN spoke with Noah CHAUHAN at [facility]. ENERGY TECHNICIAN provides update on patient's d/c today. Noah states that he will come within an hour for bedside assessment for d/c back to [place]. ENERGY TECHNICIAN faxes clinicals to [place]. Plan: d/c to [facility] JAYLEN Urias
--- NOTE | 2020-09-30 10:55 | PM.DS.1 ---
History of Present Illness History of Present Illness Date Patient Seen: 09/30/20 Time Patient Seen: 10:56 Chief complaint: chest pain Narrative: Per Dr. Culp, Mr. Álvarez is a 70M with PMH CHF, CAD, s/p AVR, s/p PPM, DM on insulin, GERD, depression, prostate CA, restless leg who comes in with progressive shortness of breath. He noted that within the last two weeks he has developed worsening shortness of breath first noted with exertion. Now has noted shortness of breath while lying down. He has lower extremity edema. He has noted he has gained weight, and he has a dry cough. No fevers/chills. No chest pain. He has recently been living at a facility and as has meals prepared for him thinks his eating has been more healthy. He presented to the ED, he was noted to be tachypneic in the 20s, and prior to arrival was noted to be satting in the 80s. He was placed on oxygen. Workup was done that showed an EKG with paced rhythm. Labs notable for creatinine of 1.29 with unclear baseline. troponin was 0.032 then 0.028. BNP was 3730. Cxray showed cardiomegaly and pleural effusions. He was given a dose of lasix and admitted for further treatment. Discharge Providers Provider Date of admission: 09/29/20 08:12 Discharge Date: 09/30/20 Discharge provider: Jamaal Bryant DO Summary Hospital Course Hospital Course: Mr. Álvarez is a 70M with PMH CAD, s/p PPM, s/p AVR, prostate CA, DM on insulin, HTN, restless leg who presented with shortness of breath and acute respiratory failure from CHF exacerbation. 1. Acute hypoxemic respiratory failure from acute on chronic systolic heart failure -clinical history of orthopnea, SOB, weight gain, with BNP high, and pleural effusions consistent with CHF -received lasix in ER and diuresed well, lasix was continued IV BID with adequate diuresis and significant improvement in symptoms. He was able to be weaned off of supplemental oxygen with continued diuresis. Once no longer requiring oxygen he was able to be discharged home. He will continue on oral furosemide 40 mg daily. -echocardiogram revealed an EF of 20-25% which is commented to be similar to a prior echo done approximately 2 months before. There was a normal valve gradient and his prosthetic valve appeared to be functioning well. -patient was discharged on oral furosemide, 40 mg daily. Recommend further follow-up with his financial assistance specialist as an outpatient for further medication management. -due to borderline low blood pressures, was unable to add an Basim or an Arb prior to discharge. 2. Type 2 Diabetes on insulin -patient's metformin was held on admission, patient was provided with sliding scale coverage. His home glargine was resumed. No changes are recommended to his outpatient diabetes management at this time. 3. Elevated creatinine -no baseline creatinine is known, admission creatinine of 1.29 improved to 1.12. 3. CAD s/p stents -patient to continue on home Plavix and apixaban 4. s/p PPM -chronic -EKG shows paced rhythm 5. s/p AVR -echocardiogram as noted above, valve does not appear to be contributory toward his acute heart failure. 6. Prostate cancer -chronic -outpatient follow up as needed, no acute issues 7. HTN -chronic -blood pressure controlled -continue metoprolol and Lasix. 8. Depression -chronic -continue zoloft 9. Restless leg -chronic -continue gabapentin Exam Vital Signs (past 8 hours): - 09/30/20 03:07 09/30/20 07:13 09/30/20 07:45 Temperature 97.4 F L 96.5 F L Pulse Rate 70 74 Respiratory Rate 25 H 16 Blood Pressure 121/73 110/55 L Pulse Oximetry 96 96 91 09/30/20 08:26 09/30/20 09:31 Temperature Pulse Rate 74 81 Respiratory Rate Blood Pressure 110/55 L 112/57 L Pulse Oximetry Oxygen Delivery Method Room Air Oxygen Flow Rate 0 Narrative Exam Narrative: GEN: no acute distress HEENT: PERRL, moist mucous membranes NECK: -jvd, trachea midline CV: RRR, no murmurs PULM: Clear to auscultation bilaterally with no wheezing, rhonchi eyes, rales ABD: soft, nontender, nondistended, obese EXT: warm and well perfused, Trace to minimal edema in bilateral feet NEURO: AAOx3, moving all extremities PSCYH: pleasant mood, calm cooperative, with stable behavior. Objective Imaging Echo: Radiologist's impression: Interpretation Summary 1) Severely dilated left ventricular enlargement with moderately increased thickness (concentric) and severely reduced systolic function (EF 20-25%). 2) Normal right ventricular size and function. There is a pacemaker lead in the right ventricle. 3) There ronnie prosthetic aortic valve that is well-seated and opens well. Mean gradient across the valve is 15.6mmHg (normal for this kind of valve). 4) Compared to the Echo done 07/28/2020, no significant change when compared visually. Procedure: A two-dimensional transthoracic echocardiogram with color flow and Doppler was performed. The study quality was technically adequate. Comparison is made with the echocardiogram of 07/28/2020. A contrast injection of Definity was performed to improve assessment of LV function. The patient was in sinus rhythm with heart rates between 65-72 bpm during the exam. Left Ventricle: The left ventricle is severely dilated. There is moderate concentric left ventricular hypertrophy. Left ventricular systolic function is severely reduced. The ejection fraction is estimated to be 20-25%. There is severe global hypokinesis of the left ventricle. There is a significant dyssynchronous contraction pattern due to the paced rhythm. Diastolic function could not be accurately assessed due to unobtainable data. Right Ventricle: The right ventricle is normal in size and function. There is a pacemaker lead in the right ventricle. Atria: Both atria are normal in size. There is no Doppler evidence for an interatrial shunt. Mitral Valve: The mitral valve is normal in structure and function. There is mild mitral regurgitation. Aortic Valve: The prosthetic aortic valve is well-seated. The aortic valve mean gradient is 15.6 mmHg. No aortic regurgitation is present. Tricuspid Valve: The tricuspid valve is normal in structure and function. There is mild tricuspid regurgitation. Pulmonary artery pressures cannot be estimated because of the lack of a measurable TR jet velocity but the IVC suggests a CVP of around 8 mmHg. Pulmonic Valve: The pulmonic valve is not well visualized. There is trace pulmonic regurgitation. Great Vessels: The aortic root is not well visualized. The dimensions of the ascending aorta are normal. The IVC is dilated (diameter is greater than 2.1 cm) yet it collapses greater than 50% with a sniff. This suggests a right atrial pressure of 8 mm Hg. Pericardium/ Pleura There is no pericardial effusion. There is an anterior echo-free space consistent with a fat pad. There is no pleural effusion. Labs Result Diagrams: 09/30/20 05:15 09/30/20 05:15 Labs: Laboratory Results - last 24 hr 09/30/20 09/30/20 05:15 05:15 WBC 8.7 RBC 4.44 L Hgb 10.3 L Hct 32.6 L MCV 73.4 L MCH 23.1 L MCHC 31.5 RDW 17.2 H Plt Count 223 Neut % (Auto) 66.8 Lymph % (Auto) 17.6 L [place] % (Auto) 10.3 Eos % (Auto) 4.1 H Baso % (Auto) 1.2 Neut # (Auto) 5800 Lymph # (Auto) 1500 [place] # (Auto) 900 Eos # (Auto) 400 Baso # (Auto) 100 Sodium 141 Potassium 3.3 L Chloride 104 Carbon Dioxide 28 BUN 19 Creatinine 1.12 Estimated GFR > 60.0 BUN/Creatinine Ratio 17.0 Glucose 143 H Calcium 9.1 Magnesium 2.1 PFSH Medical History Pacemaker Surgical History H/O aortic valve replacement History of back surgery Social History household members: none Smoking Status: Former smoker Discharge Plan Discharge Plan Patient Disposition: Home Discharge orders & Medications Prescriptions: Continued pantoprazole tablet 40 mg PO QAM RF: 0 tolterodine [Detrol LA] 4 mg Capsule,Extended Release 24hr 4 mg PO Q24H RF: 0 Plavix tablet 75 mg PO QAM RF: 0 calcium carbonate 500 mg PO QAM RF: 0 metoprolol succinate 12.5 mg PO QAM RF: 0 Zoloft 100 mg PO QAM RF: 0 insulin glargine 100 unit/mL Cartridge 42 unit SUBCUT BEDTIME RF: 0 gabapentin 600 mg PO TID RF: 0 Mirapex 0.5 mg PO BEDTIME RF: 0 metformin 500 mg PO BID RF: 0 Adult Multi plus [place]-3 1,000 mg PO BID RF: 0 apixaban 5 mg PO BID RF: 0 insulin lispro 100 unit/mL Insulin Pen See Rx Instructions .ROUTE .COMPLEX RF: 0 Changed furosemide [Lasix] 20 mg Tablet 40 mg PO QAM 30 Days Qty: 60 RF: 0 Visit Report/Discharge Packet Instructions: Heart Failure, DI for Heart Failure Discharge Data Attending Provider: He Culp VTE Deep Vein Thrombosis/Pulmonary Embolism Present on Admission: No
[2020-09-30 11:00] VITALS: BP 107/52; RESP 18; TEMP 36.4; O2SAT 96
--- NOTE | 2020-09-30 13:04 | CM.DPNOTE ---
DCP Note: Patient is 70 yo male with [employer] Medicare and Medicaid. Patient presents at hospital with complaint of chest pain. Per MD, patient has history of prostate CA, PMH CHF and was admitted for SOB and CHF. JAYLEN met with patient at bedside, patient was A/Ox4. Patient resides at [facility]. Patient states that he feels like he is back at his baseline and when he was admitted he could not breathe. PRESS BOX CUSTODIAN called TIEN Zamora at [facility] and reports that patient moved to [place] last week. Noah reports that patient has his daughter Arlet recently listed as DPOA. Noah assessed patient at bedside and approved him for returning to [place]. Per MD, patient is medically stable and clear for d/c. Plan: d/c back to [facility]. JAYLEN Urias Discharge Planning/Care Management CM Discharge Assessment Start: 09/30/20 13:01 Freq: Status: Active Protocol: Document 09/30/20 13:02 LN (Rec: 09/30/20 13:04 LN [id number]) Discharge Planning Assessment Assigned Contracting Executive JAYLEN Edwards DPLONDON/Assigned Designee Name Arlet Bueno/ daughter Contact Information [phone] Advance Directives? Yes Advance Directives on File Yes History Provided By Patient Has Patient been admitted in last 30 No days? Prior Living Arrangements Assisted Living Comment [facility] Household Members none Type of transporation used prior to Relies on Others admit Facility Name Admitted From: [place] Willing to Return to Facility? Yes: Patient will return to [place] [facility] Independent with ADL's Yes Is patient alert and oriented? Yes Discharge Plan Assisted Living Facility Please Provide Date Initial DC 09/30/20 Assessment Was Performed
--- NOTE | 2020-09-30 13:25 | PC.NURSE ---
Patient educated about diet, exercise, ss of stroke, CHF, new medication dosage of Lasix, when to follow up with primary care physician. Patient verbalized understanding of all discharge teaching. Patient left facility via private vehicle. No prescriptions. Patient left facility with all belongings.
== END 2020-09-30 14:08 | disposition home or self-care (01) ==
LOC: ED 08:12 → AC 08:14
PROVIDERS: Emergency Medicine; Admitting Provider Internal Medicine; Emergency Provider Emergency Medicine; Referring Provider Emergency Medicine; Visit Provider Internal Medicine
DX: J96.01 Acute respiratory failure with hypoxia (principal); I11.0 Hypertensive heart disease with heart failure; I50.9 Heart failure, unspecified; N17.9 Acute kidney failure, unspecified; E11.9 Type 2 diabetes mellitus without complications; E78.5 Hyperlipidemia, unspecified; R32 Unspecified urinary incontinence; G25.81 Restless legs syndrome; F32.9 Major depressive disorder, single episode, unspecified; Z79.01 Long term (current) use of anticoagulants; Z95.0 Presence of cardiac pacemaker; Z95.2 Presence of prosthetic heart valve; Z79.4 Long term (current) use of insulin; Z20.822 Contact with and (suspected) exposure to COVID-19
CPT/HCPCS: 36415; 71045; 80048; 80053; 82550; 82962; 83690; 83735; 83880; 84484; 85025; 85379; 85610; 85730; 87635; 93005; 93010; 96372; 96374; 96376; 99284; 99285; C9803; G0378; C8929; J1940; Q9957

== ENCOUNTER → 2020-10-08 08:07 | Outpatient (ROUT) | payer MEDICARE, MEDICAID, SELFPAY ==
[2020-09-29 09:50] VITALS: BMI 38.5
[2020-10-08 08:54] LABS: Add Manual Diff / Slide Review NO; Basophils Absolute Auto 100 /uL (0-100); Basophils Percent Auto 1.1 % (0-2); Eosinophils Absolute Auto 300 /uL (0-450); Eosinophils Percent Auto 4.2 % (2-4); Hematocrit 31.1 % (41-53); Hemoglobin 10.1 g/dL (13.5-17.5); Lymphocytes Absolute Auto 1000 /uL (1100-4500); Lymphocytes Percent Auto 14.3 % (25-40); Mean Corpuscular HGB Conc 32.6 % (30-36); Mean Corpuscular Hemoglobin 23.7 PG (26-34); Mean Corpuscular Volume 72.8 fL (80-100); Monocytes Absolute Auto 500 /uL (0-900); Neutrophils Absolute Auto 5100 /uL (1500-7000); Neutrophils Percent Auto 73.4 % (50-75); Platelet Count 211 X10^3/uL (150-400); Red Blood Cell Count 4.27 X10^6/uL (4.5-5.9); White Blood Cell Count 6.9 X10^3/uL (4.5-11.0)
[2020-10-08 09:05] LABS: Hemoglobin A1C% w Est Avg Glu 7.1 % (4.0-6.0)
[2020-10-08 09:33] LABS: Alanine Aminotransferase 12 IU/L (<50); Albumin 3.7 g/dL (3.5-5.0); Albumin Globulin Ratio 1.4 (1.0-2.8); Alkaline Phosphatase 101 U/L (38-126); Aspartate Aminotransferase 18 IU/L (17-59); BUN Creatinine Ratio 18.3 (6-22); Bilirubin Total 0.2 mg/dL (0.2-1.3); Blood Urea Nitrogen 20 mg/dL (9-20); Calcium 8.9 mg/dL (8.4-10.2); Carbon Dioxide 25 mmol/L (22-32); Chloride 108 mmol/L (98-107); Estimated Glomerular Filt Rate > 60.0 mL/min (>60); Globulin 2.7 g/dL (1.7-4.1); Glucose 192 mg/dL (80-110); HEMOLYSIS < 15 (0-50); Potassium 3.7 mmol/L (3.4-5.1); Sodium 140 mmol/L (137-145); Total Protein 6.4 g/dL (6.3-8.2)
== END ==
PROVIDERS: Visit Provider Nurse Practitioner Gerontology
DX: E11.9 Type 2 diabetes mellitus without complications (principal); I10 Essential (primary) hypertension
CPT/HCPCS: 36415; 80053; 83036; 84153; 85025

== ENCOUNTER 2020-10-23 09:37 | Observation (INO) | payer MEDICARE, MEDICAID, SELFPAY ==
[2020-09-29 09:50] VITALS: BMI 38.5
[2020-10-23] VITALS (10 sets, daily range): BP systolic 119–159; BP diastolic 52–86; PULSE 69–96; RESP 16–41; TEMP 36.2–36.7; O2SAT 92–97; BMI 38.4
--- NOTE | 2020-10-23 09:38 | ED_ITS ---
HPI - General Adult General Chief complaint: Shortness of Breath/Dyspnea Stated complaint: CHF/COPD Time Seen by Provider: 10/23/20 09:38 Source: patient and EMS Mode of arrival: EMS Limitations: no limitations History of Present Illness HPI narrative: 70-year-old male brought in by EMS for evaluation of acute worse regina of his shortness of breath this morning. He does have a history of heart failure. An echocardiogram done approximately 1 month ago shows an ejection fraction of 20-25%. He has known coronary artery disease. Has had an aortic valve replacement in the past. Also has prostate cancer and. He is on Lasix. He was seen here in the emergency department approximately 1 month ago admitted to the hospital for a CHF exacerbation and his presenting symptoms today are very similar to that. He does have minimal swelling in his lower extremities. He received a DuoNeb by EMS prior to arrival which he states did not help the symptoms all that much. He feels much better sitting up. No chest pain. He is taking all his medications as directed. He is on anticoagulation. Went to bed last night feeling at his normal state health and woke up this morning short of breath. Related Data Home Medications Medication Instructions Recorded Confirmed Adult Multi plus Joppa-3 1,000 mg PO BID 09/29/20 09/29/20 Mirapex 0.5 mg PO BEDTIME 09/29/20 09/29/20 Plavix 75 mg PO QAM 09/29/20 09/29/20 Zoloft 100 mg PO QAM 09/29/20 09/29/20 apixaban 5 mg PO BID 09/29/20 09/29/20 calcium carbonate 500 mg PO QAM 09/29/20 09/29/20 gabapentin 600 mg PO TID 09/29/20 09/29/20 insulin glargine 42 unit SUBCUT BEDTIME 09/29/20 09/29/20 insulin lispro See Rx Instructions .ROUTE .COMPLEX 09/29/20 09/29/20 metformin 500 mg PO BID 09/29/20 09/29/20 metoprolol succinate 12.5 mg PO QAM 09/29/20 09/29/20 pantoprazole 40 mg PO QAM 09/29/20 09/29/20 tolterodine [Detrol LA] 4 mg PO Q24H 09/29/20 09/29/20 Previous Rx's Medication Instructions Recorded furosemide [Lasix] 40 mg PO QAM 30 Days #60 tab 09/30/20 Allergies Allergy/AdvReac Type Severity Reaction Status Date / Time carbidopa Allergy Verified 10/23/20 09:54 crab Allergy Verified 10/23/20 09:54 morphine Allergy Verified 10/23/20 09:54 Review of Systems Constitutional Constitutional: Denies fatigue and Denies headache(s) Eyes Eyes: Denies change in vision ENT Ears, Nose, Mouth, and Throat: Denies headache(s) and Denies sore throat Cardiovascular Cardiovascular: Denies chest pain, Reports dyspnea and Reports dyspnea on exertion Respiratory Respiratory: Reports cough, Denies excessive phlegm production, Reports dyspnea and Reports dyspnea on exertion Gastrointestinal Gastrointestinal: Denies abdominal pain, Denies nausea and Denies vomiting Genitourinary Genitourinary: Denies dysuria Genitourinary: Denies dysuria Musculoskeletal Musculoskeletal: Reports myalgias Integumentary/Breasts Skin/Breast: Denies rash Neurologic Neurologic: Denies behavioral changes and Denies headache(s) Psychiatric Psychiatric: Denies behavioral changes Endocrine Endocrine: Denies fatigue Hematologic/Lymphatic On Anticoagulants: Yes Allergic/Immunologic Allergic/Immunologic: Denies urticaria Patient History Medical History Congestive heart failure Pacemaker Surgical History H/O aortic valve replacement History of back surgery Social History household members: none Smoking Status: Former smoker Exam Initial Vital Signs Initial Vital Signs: Vital Signs Pulse Rate 96 H 10/23/20 09:45 Respiratory Rate 36 H 10/23/20 09:45 Blood Pressure 159/86 H 10/23/20 09:45 Pulse Oximetry 95 10/23/20 09:45 Const General: cooperative and comfortable Limitations: mental status not altered HENMT Head: normal to inspection and normocephalic Eyes General: appearance normal, both eyes and all related structures Chest Chest: No tenderness Resp Effort & Inspection: labored Auscultation: rales Cardio Rate: tachycardic Rhythm: regular rhythm GI Inspection: distended Palpation: soft Skin Lesions: no lesions Rashes: no rashes Neuro General: patient alert, patient awake and patient oriented x3 Cognition: normal cognition Speech: speech normal Extrem General: edema Psych Appearance: grossly normal and well kempt Course Orders Ordered: ED Orders 10/23/20 09:42 XR chest 1V Stat Partial Thromboplastin Time Stat Prothrombin Time INR Stat EKG-12 Lead Stat 10/23/20 09:51 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) Stat 10/23/20 09:57 Complete Blood Count AUTO DIFF Stat Comprehensive Metabolic Panel Stat Lipase Stat NT-proBNP (BNP-Adult 18+) Stat Troponin & CK Cardiac Panel Stat Discontinued Medications Furosemide (Furosemide 100 Mg/10 Ml Vial) 60 mg IV NOW ONE Stop: 10/23/20 10:21 Last Admin: 10/23/20 10:30 Dose: 60 mg Documented by: MIKAELA Vital Signs Vital signs: Vital Signs - 8 hr 10/23/20 09:45 10/23/20 09:48 10/23/20 10:00 Temperature 98.1 F Pulse Rate 96 H 92 H 79 Respiratory Rate 36 H 41 H 33 H Blood Pressure 159/86 H 142/86 H Pulse Oximetry 95 97 97 Medical Decision Making Medical Records Medical records reviewed: Yes I reviewed the patient's medical records. Lab Data Lab results reviewed: Yes I reviewed the patient's lab results. Result diagrams: 10/23/20 09:57 10/23/20 09:57 Labs: Lab Results 10/23/20 10/23/20 10/23/20 Range/Units 09:57 09:57 09:57 WBC 9.2 (4.5-11.0) X10^3/uL RBC 4.47 L (4.5-5.9) X10^6/uL Hgb 10.1 L (13.5-17.5) g/dL Hct 32.1 L (41-53) % MCV 71.7 L (80-100) fL MCH 22.6 L (26-34) PG MCHC 31.6 (30-36) % RDW 18.0 H (11.6-14.8) % Plt Count 249 (150-400) X10^3/uL Neut % (Auto) 77.2 H (50-75) % Lymph % (Auto) 13.5 L (25-40) % Morrow % (Auto) 6.3 (3-14) % Eos % (Auto) 2.2 (2-4) % Baso % (Auto) 0.8 (0-2) % Neut # (Auto) 7100 H (0532-6850) /uL Lymph # (Auto) 1200 (8655-0697) /uL Morrow # (Auto) 600 (0-900) /uL Eos # (Auto) 200 (0-450) /uL Baso # (Auto) 100 (0-100) /uL Sodium 141 (137-145) mmol/L Potassium 4.1 (3.4-5.1) mmol/L Chloride 106 (98-107) mmol/L Carbon Dioxide 25 (22-32) mmol/L BUN 18 (9-20) mg/dL Creatinine 1.21 (0.66-1.25) mg/dL Estimated GFR 58.9 L (>60) mL/min BUN/Creatinine Ratio 14.9 (6-22) Glucose 203 H (80-110) mg/dL Calcium 9.1 (8.4-10.2) mg/dL Total Bilirubin 0.4 (0.2-1.3) mg/dL AST 23 (17-59) IU/L ALT 16 (<50) IU/L Alkaline Phosphatase 96 (38-126) U/L Total Creatine Kinase 34 L (55-170) U/L CK-MB (CK-2) TNP CK-MB (CK-2) Rel Index TNP Troponin I < 0.012 (0.01-0.034) ng/mL NT-Pro-B Natriuret Pep 2370 H (<125) pg/mL Total Protein 7.0 (6.3-8.2) g/dL Albumin 4.1 (3.5-5.0) g/dL Globulin 2.9 (1.7-4.1) g/dL Albumin/Globulin Ratio 1.4 (1.0-2.8) Lipase 89 (23-300) U/L Imaging Data Chest x-ray: Radiologist's Impression: [address] [id number] ReportSigned Patient: Michela Álvarez#: [id number]: 8Acct:[id number]/Sex: 70 / MDate of Service: 10/23/20Loc: EDAccession Number: [id number] Procedure: XR chest 1V Ordering Provider: Juan Hayes D.O. PROCEDURE: XR CHEST 1V INDICATIONS: Shortness of breath TECHNIQUE: One view of the chest was acquired. COMPARISON: [facility], , XR CHEST 1V, 09/29/2020, 6:29. FINDINGS: Surgical changes and devices: Left chest wall pacemaker leads are seen in the region of right atrium and right ventricle. Prosthetic heart valve is again seen. Lungs and pleura: Mild pulmonary vascular congestion is again seen. No definite focal infiltrate. No pleural effusions or pneumothorax. Mediastinum: Mediastinal contours appear normal. Heart size is enlarged. Bones and chest wall: No suspicious bony lesions. Overlying soft tissues appear unremarkable. IMPRESSION: Cardiomegaly and mild congestion. No definite focal infiltrate. No pneumothorax. Dictated by: Jacobo Soto M.D. on 10/23/2020 at 10:17 Approved by: Jacobo Soto M.D. on 10/23/2020 at 10:18 ECG Data Attestation: I personally reviewed and interpreted this ECG as follows: Prior ECG tracings: not available for review Interpretation: Dual-chamber paced Rate of 80 MDM Narrative Medical decision making narrative: Patient was reported to be hypoxic in transitioning from his bed to the EMS gurney over at his living facility. When he arrived here he was on oxygen and was receiving a DuoNeb which he states did not help his symptoms. His physical exam and his history is more consistent with heart failure. Was initially hypertensive but this improved without any intervention. Upon returning from the bathroom here in the emergency department he again was satting in the mid 80s. This improved with rest. He was placed on oxygen by nasal cannula for his air hunger. He denies any chest pain. He was not placed on BiPAP. He was given Lasix and started to urinate. Discussed the case with Dr. hayes. Given his hypoxia we will admit for further evaluation and treatment. Discussed this admission with the patient. He expressed understanding and agreement. Discharge Plan Departure Patient Disposition: Admitted As Inpatient Clinical Impression: CHF exacerbation, Hypoxia
--- NOTE | 2020-10-23 09:42 | DI.RAD.S_ITS ---
PROCEDURE: XR CHEST 1V INDICATIONS: Shortness of breath TECHNIQUE: One view of the chest was acquired. COMPARISON: [facility], CR, XR CHEST 1V, 09/29/2020, 6:29. FINDINGS: Surgical changes and devices: Left chest wall pacemaker leads are seen in the region of right atrium and right ventricle. Prosthetic heart valve is again seen. Lungs and pleura: Mild pulmonary vascular congestion is again seen. No definite focal infiltrate. No pleural effusions or pneumothorax. Mediastinum: Mediastinal contours appear normal. Heart size is enlarged. Bones and chest wall: No suspicious bony lesions. Overlying soft tissues appear unremarkable. IMPRESSION: Cardiomegaly and mild congestion. No definite focal infiltrate. No pneumothorax. Dictated by: Jacobo Soto M.D. on 10/23/2020 at 10:17 Approved by: Jacobo Soto M.D. on 10/23/2020 at 10:18
[2020-10-23 10:09] LABS: Add Manual Diff / Slide Review NO; Basophils Absolute Auto 100 /uL (0-100); Basophils Percent Auto 0.8 % (0-2); Eosinophils Absolute Auto 200 /uL (0-450); Eosinophils Percent Auto 2.2 % (2-4); Hematocrit 32.1 % (41-53); Hemoglobin 10.1 g/dL (13.5-17.5); Lymphocytes Absolute Auto 1200 /uL (1100-4500); Lymphocytes Percent Auto 13.5 % (25-40); Mean Corpuscular HGB Conc 31.6 % (30-36); Mean Corpuscular Hemoglobin 22.6 PG (26-34); Mean Corpuscular Volume 71.7 fL (80-100); Monocytes Absolute Auto 600 /uL (0-900); Monocytes Percent Auto 6.3 % (3-14); Neutrophils Absolute Auto 7100 /uL (1500-7000); Neutrophils Percent Auto 77.2 % (50-75); Platelet Count 249 X10^3/uL (150-400); Red Blood Cell Count 4.47 X10^6/uL (4.5-5.9); White Blood Cell Count 9.2 X10^3/uL (4.5-11.0)
[2020-10-23 10:21] LABS: Creatine Kinase 34 U/L (55-170); Lipase 89 U/L (23-300)
[2020-10-23 10:22] LABS: Alanine Aminotransferase 16 IU/L (<50); Albumin 4.1 g/dL (3.5-5.0); Albumin Globulin Ratio 1.4 (1.0-2.8); Alkaline Phosphatase 96 U/L (38-126); Aspartate Aminotransferase 23 IU/L (17-59); BUN Creatinine Ratio 14.9 (6-22); Bilirubin Total 0.4 mg/dL (0.2-1.3); Blood Urea Nitrogen 18 mg/dL (9-20); Calcium 9.1 mg/dL (8.4-10.2); Carbon Dioxide 25 mmol/L (22-32); Chloride 106 mmol/L (98-107); Estimated Glomerular Filt Rate 58.9 mL/min (>60); Globulin 2.9 g/dL (1.7-4.1); Glucose 203 mg/dL (80-110); HEMOLYSIS < 15 (0-50); Potassium 4.1 mmol/L (3.4-5.1); Sodium 141 mmol/L (137-145)
[2020-10-23] MEDS: FUROSEMIDE 100 MG/10 ML VIAL 60 MG IV (10:30)
[2020-10-23 10:33] LABS: NT-proBNP (BNP-Adult 18+) 2370 pg/mL (<125); Troponin I < 0.012 ng/mL (0.01-0.034)
[2020-10-23 10:59] LABS: COVID19 - ADMIT (NP swab/PCR) Negative (Negative)
[2020-10-23 13:07] LABS: INR 1.2 (0.9-1.3); Prothrombin Time 13.8 SECONDS (10.1-12.7)
[2020-10-23 13:09] LABS: PTT Partial Thromboplastin Tim 39 SECONDS (26.4-36.2)
--- NOTE | 2020-10-23 15:42 | PC.NURSE ---
Oriented to room and call light. VSS. Urinal within reach. Patient denies recent falls within 3 months but placed on moderate fall precautions with bed alarm active for safety. Patient states he is feeling a little better but reports he can still not lay flat and gets short of breath with exertion. 94% on 2L NC at this time, continuos pulse ox in place. Tele place by CADDY PACKER, patient is V paced. Call light within reach. Continue to follow
--- NOTE | 2020-10-23 16:25 | PT.IIE ---
Surgical History (Last Reviewed 09/29/20 @ 22:19 by He Culp MD) H/O aortic valve replacement History of back surgery Medical History (Last Reviewed 10/23/20 @ 09:56 by Juan Hayes DO) Congestive heart failure Pacemaker Physical Therapy Inpatient Evaluation/Re-Eval M1 PT/OT-IP Prior Functional Status Start: 10/23/20 17:10 Freq: NEEDED Status: Active Protocol: Document 10/23/20 16:25 AB (Rec: 10/23/20 17:24 AB [id number]) Medical Review Prior Functional Status Medical History Reviewed Yes Communication able to make needs known Mobility and Gait pt stated that he is modified independent with all mobilities and ambulatio using a FWW Activities of Daily Living and IADL's stated that he has assists with his showers, medications Social History Household Members none Living Arrangements Assisted Living Number of Floors (Floors) One Floor Number of Stairs To Enter/Railing? pt lives at [facility] Environment Standard Height Toilet,Walk in Shower Home Equipment Front Wheel Walker,Shower Seat with Backrest,Hand Held Shower,Grab Bars Near Toilet, Grab Bars In Shower Additional Social History Comment pt stated that he does not use O2 at home pt stated that he has an adjustable bed at home but without rails M2 PT-IP Current Condition Start: 10/23/20 17:10 Freq: NEEDED Status: Active Protocol: Document 10/23/20 16:25 AB (Rec: 10/23/20 17:24 AB [id number]) Physical Therapy Current Condition Current Condition Evaluation Date 10/23/20 Treatment Diagnosis CHF exacerbation; difficulty in walking Onset Date 10/23/20 Precautions Other Precautions O2 sat M3 PT-IP Subjective Start: 10/23/20 17:10 Freq: NEEDED Status: Active Protocol: Document 10/23/20 16:25 AB (Rec: 10/23/20 17:24 AB [id number]) Subjective Physical Therapy Visit Type Type Initial Evaluation Visit Start Time 16:25 Visit Stop Time 17:10 Total Visit Minutes 45 Number of FAMILY AND [employer] TE[employer]ER Visits 0 Physical Therapy Visit Comments Patient Comments agreeable to do PT M4 PT-IP Mobility and Gait Start: 10/23/20 17:10 Freq: NEEDED Status: Active Protocol: Document 10/23/20 16:25 AB (Rec: 10/23/20 17:24 AB [id number]) PT-Bed Mobility Assessment Supine to Sit Supine to Sit Contact Guard Assistance, Bedrails Sit to Supine Sit to Supine Standby Assistance,Head of Bed Elevated PT-Transfer Assessment Sit to and From Stand Sit to and from Stand Contact Guard Assistance,1 Person Assistance,Use of Upper Extremities Equipment Transfer Assistive Device Gait Belt,Front Wheeled Walker Orthotic/Prosthetic Devices or Brace: No Transfers Transfer Destination Chair,Toilet Transfer Technique ambulated using FWW Transfer Ability Level of Assist Contact Guard Assistance Comments Mobility Comments pt sitting on EOB and agreeable to do PT. O2 sat at rest with O2 on 94%. pt completed sit to stand CGA and ambulated in room using FWW CGA but midway requested to use the toilet. O2 tubing will not reach all the way to the toilet and pt took O2 off. ambulated to the toilet using FWW CGA. pt was able to maintain standing using FWW for support while doing toileting CGA. O2 sat 91% at room air. pt ambulated out of the toilet. O2 placed back on and ambulated more in room using FWW ~ 30 ft. sat on chair to rest. (+) SOB but O2 sat at 94% with O2 on. pt ambulated to the EOB using FWW CGA and completed sit to supine SBA. HOB elevated. pt has an adjustable and stated that he usually have HOB up. completed supine to sit CGA for safety and pt used bed rail to assist. pt can be impulsive. pt completed transfer to chair using FWW CGA. positioned on chair. call light and table placed within reach. Left pt in room with nurse. O2 sat at end of tx session with O2 on 94% Gait Assessment Gait Gait Assistance Required: Contact Guard Assist Distance (Feet) 30 Able to Maintain Weight Bearing Status Yes During Gait Assistive Devices Assistive Device Gait Belt,Front Wheeled Walker Orthotic/Prosthetic Devices or Brace: No Gait Deviations General Gait Pattern Decreased Stride Length, Decreased Feet Clearance,Wide Based Gait Factors Limiting Gait Function Factors Limiting Gait Function Decreased Activity Tolerance, Decreased Strength,Poor Balance,Poor Safety Awareness, Respiratory Distress Comments Gait Comments pls refer to mobility section for details PT-Balance Assessment Sitting Balance and Reactions Static Sitting Balance Ability Good Dynamic Sitting Balance Ability Good Standing Balance and Reactions Static Standing Balance Ability Fair Dynamic Standing Balance Ability Fair Device Used FWW M5 PT-IP Objective Assessments Start: 10/23/20 17:10 Freq: NEEDED Status: Active Protocol: Document 10/23/20 16:25 AB (Rec: 10/23/20 17:24 AB [id number]) Orientation Orientation/Cognition Level of Alertness Alert Orientation Name,Place,Situation Language Function Ability No Deficits Noted Safety Awareness Decreased Safety Awareness Memory Description No Deficits Noted Gross Range of Motion Lower Extremity ROM Assessment Within Functional Limits Strength Lower Extremity Strength Hip 4-/5 Knee 4-/5 Sensation Assessment Sensation Gross Sensation WNL Muscle Tone Muscle Tone WNL Yes M6 PT-IP Treatment Start: 10/23/20 17:10 Freq: NEEDED Status: Active Protocol: Document 10/23/20 16:25 AB (Rec: 10/23/20 17:24 AB [id number]) Physical Therapy Treatment Education Education Provided Safety M7 PT-IP Assessment and Plan Start: 10/23/20 17:10 Freq: NEEDED Status: Active Protocol: Document 10/23/20 16:25 AB (Rec: 10/23/20 17:24 AB [id number]) PT Summary Assessment and Plan Potential Rehabilitation Potential Good Status of Condition at Evaluation Stable Summary Impairments Strength,Balance,Coordination, Bed Mobility,Transfers,Gait, Activity Tolerance Assessment Summary pt requiring CGA with mobility using FWW and has (+) SOB but O2 sat at 91-94%. pt will likely progress during hospital stay and may go back to [facility] when stable. Pt may benefit from HHPT to improve overall strength and activity tolerance. will continue to assess progress. Goals Bed Mobility Goal Independent Transfer Goal Independent,Front Wheeled Walker Gait Goal Independent,Front Wheel Walker Gait Distance 150 Days to Meet Goals 5 Frequency of Treatment Frequency Of Treatment Once a Day Treatment Plan Physical Therapy Treatment Plan Bed Mobility Training,Transfer Training,Gait Training, Therapeutic Exercise,Balance Retraining,Discharge Planning, Neuromuscular Re-ed, Coordination Retraining Other Recommendations and Next Treatment ambulation Focus Recommendations To Nursing Amount of Assist Needed 1 Person Assist Discharge Recommendations PT Discharge Recommendations Home with Assistance,Home Health Transportation Needs at Discharge Private Vehicle,Wheelchair/ Cabulance
[2020-10-23] MEDS: INSULIN LISPRO 100 UNIT/ML 3ML VIAL SUBCUT ×2 (16:27→21:40)
[2020-10-23] MEDS: GABAPENTIN 600 MG TABLET PO (17:00)
[2020-10-23] MEDS: PRAMIPEXOLE 1 MG TABLET PO (17:00)
--- NOTE | 2020-10-23 17:29 | P.HP_ITS ---
History of Present Illness History of Present Illness Date Patient Seen: 10/23/20 Chief complaint: CHF/COPD Narrative: The patient is a 70-year-old male with a history of congestive heart failure with preserved ejection fraction, coronary artery disease, history of aortic valve repair, status post permanent pacemaker placement, type 2 diabetes on insulin, GERD he, depression, history of prostate restless leg syndrome, who presents to the hospital with abrupt onset shortness of breath. Patient was hospitalized and discharged a month ago. He has not followed up with Cardiology since that time. Patient states he was well until the past few days when he became increasingly short of breath. The patient awoke at 6:00 a.m. this morning abruptly short of breath. He felt he was unable to breathe. Patient was brought into emergency department where he was found to be tachypneic alt lambert not hypoxic. Patient states he has been taking his medications as prescribed. Was given a dose of IV Lasix with excellent response. Patient is being admitted to the hospital for treatment of acute congestive heart failure. Hospitalization echocardiogram was obtained. Echo revealed an ejection fraction of 20-25%, severe reduced systolic function, dilated left ventricular enlargement, prosthetic aortic valve was well seated and opened well. Patient is admitted to the hospital for acute decompensated congestive heart failure. Patient History Medical History Congestive heart failure Pacemaker Surgical History H/O aortic valve replacement History of back surgery Family & Social History Family History (Updated 10/23/20 @ 17:35 by Tammie Saenz MD) Mother Coronary artery disease involving bypass graft of transplanted heart Cancer Social History: household members none Prior Living Arrangements Assisted Living Safety & Behavioral: Feels Safe in Current Yes Environment Been Physically Hurt or No Threatened By a Person Suicidal Ideation Description None Suicide Plan Description No Plan Tobacco & Substance use: Smoking Status Former smoker alcohol intake frequency holiday/special occasion Substance Use Type former substance user Meds Home Medications and Allergies Home Medications Medication Instructions Recorded Confirmed Type Mirapex 1 mg PO BEDTIME 09/29/20 10/23/20 History Plavix 75 mg PO QAM 09/29/20 10/23/20 History Zoloft 100 mg PO QAM 09/29/20 10/23/20 History apixaban 5 mg PO BID 09/29/20 10/23/20 History calcium carbonate 500 mg PO QAM 09/29/20 10/23/20 History gabapentin 600 mg PO TID 09/29/20 10/23/20 History insulin glargine 42 unit SUBCUT BEDTIME 09/29/20 10/23/20 History insulin lispro See Rx Instructions .ROUTE .COMPLEX 09/29/20 10/23/20 History metformin 500 mg PO BID 09/29/20 10/23/20 History metoprolol succinate 12.5 mg PO QAM 09/29/20 10/23/20 History pantoprazole 40 mg PO QAM 09/29/20 10/23/20 History tolterodine [Detrol LA] 4 mg PO Q24H 09/29/20 10/23/20 History furosemide [Lasix] 40 mg PO QAM 30 Days #60 tab 09/30/20 10/23/20 Rx bicalutamide 50 mg PO DAILY 10/23/20 10/23/20 History ibuprofen 400 mg PO PRN PRN 10/23/20 10/23/20 History trazodone 50 mg PO BEDTIME 10/23/20 10/23/20 History Allergies Allergy/AdvReac Type Severity Reaction Status Date / Time carbidopa Allergy Verified 10/23/20 09:54 crab Allergy Verified 10/23/20 09:54 morphine Allergy Verified 10/23/20 09:54 Review of Systems Review of Systems ROS: Yes All systems reviewed with the patient and are negative except as otherwise documented Exam Vital Signs (past 8 hours): - 10/23/20 09:45 10/23/20 09:48 10/23/20 10:00 Temperature 98.1 F Pulse Rate 96 H 92 H 79 Respiratory Rate 36 H 41 H 33 H Blood Pressure 159/86 H 142/86 H Pulse Oximetry 95 97 97 10/23/20 10:30 10/23/20 11:00 10/23/20 13:34 Temperature 97.8 F Pulse Rate 77 78 82 Respiratory Rate 30 H 29 H 16 Blood Pressure 137/63 135/63 128/75 Pulse Oximetry 92 94 97 10/23/20 15:55 10/23/20 17:27 Temperature 97.5 F L Pulse Rate 82 Respiratory Rate 24 Blood Pressure 119/52 L Pulse Oximetry 95 95 Oxygen Delivery Method Nasal Cannula Oxygen Flow Rate 1 Narrative Exam Narrative: Pleasant ill-appearing male lying in bed in no obvious distress HEENT will cephalic atraumatic extraocular muscles are intact oropharynx is clear, neck is soft there is no JV Lungs: Decreased breath sounds with bibasilar crackles noted Cardiac exam: Regular rate and rhythm, normal S1-S2 3/6 systolic ejection murmur Abdomen: Soft nontender nondistended, no hepatosplenomegaly Extremities: 1+ trace edema bilateral Neuro exam nonfocal Psychiatric exam: Patient is awake alert and appropriate, no hallucination, no delete Objective Labs Result Diagrams: 10/23/20 09:57 10/23/20 09:57 Labs: Laboratory Results - last 24 hr 10/23/20 10/23/20 10/23/20 09:51 09:57 09:57 WBC 9.2 RBC 4.47 L Hgb 10.1 L Hct 32.1 L MCV 71.7 L MCH 22.6 L MCHC 31.6 RDW 18.0 H Plt Count 249 Neut % (Auto) 77.2 H Lymph % (Auto) 13.5 L [place] % (Auto) 6.3 Eos % (Auto) 2.2 Baso % (Auto) 0.8 Neut # (Auto) 7100 H Lymph # (Auto) 1200 [place] # (Auto) 600 Eos # (Auto) 200 Baso # (Auto) 100 PT INR APTT Sodium 141 Potassium 4.1 Chloride 106 Carbon Dioxide 25 BUN 18 Creatinine 1.21 Estimated GFR 58.9 L BUN/Creatinine Ratio 14.9 Glucose 203 H Calcium 9.1 Total Bilirubin 0.4 AST 23 ALT 16 Alkaline Phosphatase 96 Total Creatine Kinase CK-MB (CK-2) CK-MB (CK-2) Rel Index Troponin I NT-Pro-B Natriuret Pep Total Protein 7.0 Albumin 4.1 Globulin 2.9 Albumin/Globulin Ratio 1.4 Lipase SARS-CoV-2 (PCR) Negative 10/23/20 10/23/20 09:57 09:57 WBC RBC Hgb Hct MCV MCH MCHC RDW Plt Count Neut % (Auto) Lymph % (Auto) [place] % (Auto) Eos % (Auto) Baso % (Auto) Neut # (Auto) Lymph # (Auto) [place] # (Auto) Eos # (Auto) Baso # (Auto) PT 13.8 H INR 1.2 APTT 39 H Sodium Potassium Chloride Carbon Dioxide BUN Creatinine Estimated GFR BUN/Creatinine Ratio Glucose Calcium Total Bilirubin AST ALT Alkaline Phosphatase Total Creatine Kinase 34 L CK-MB (CK-2) TNP CK-MB (CK-2) Rel Index TNP Troponin I < 0.012 NT-Pro-B Natriuret Pep 2370 H Total Protein Albumin Globulin Albumin/Globulin Ratio Lipase 89 SARS-CoV-2 (PCR) Assessment & Plan Assessment & Plan narrative: 70-year-old male admitted to the hospital with acute decompensated systolic heart failure -patient with progressive dyspnea on exertion, PND -cardiac echo during his last admission confirms severe dilated left ventricular enlargement, moderately increased thickness and severe reduced systolic function with EF of 20-25 per con seated prosthetic aortic valve - chest x-ray confirms cardiomegaly with mild congestion -proBNP elevated at 2370 -will continue IV Lasix 40 mg twice daily -will start low-dose YASHIRA-inhibitor -will continue metoprolol -needs outpatient cardiology evaluation could patient may be a candidate for Amol which would require him to be off his YASHIRA-inhibitor. Will discuss with Cardiology before initiating 2. Type 2 diabetes -continue basal bolus insulin 3. Coronary artery disease -status post stent -no evidence of acute ischemia 4. Status post aortic valve her -Will continue apixaban 5. Status post permanent pacemaker placed 6. Hypertension -patient has previously been hypo 10 -will continue metoprolol -Lasix will help 7. Depression -continues on 8. Restless legs in -continue Mirapex -continue gabapentin Patient reports he is DNR DNI and will note that his record a core His daughter Arlet Bueno is his durable power of disk sharpener Patient is currently on apixaban and will not require additional DVT prophylaxis Patient is admitted as an inpatient given severity of illness in the likelihood that he will be here greater than 48 hours Quality VTE Deep Vein Thrombosis/Pulmonary Embolism Present on Admission: No
[2020-10-23] MEDS: INSULIN GLARGINE 100 UNIT/ML 3ML PEN 40 UNIT SUBCUT (21:40)
[2020-10-23] MEDS: SERTRALINE 50 MG TABLET PO (21:41)
[2020-10-23] MEDS: APIXABAN 5 MG TABLET PO (21:41)
[2020-10-23] MEDS: TRAZODONE 50 MG TABLET PO (21:41)
[2020-10-23] MEDS: SENNOSIDES 8.6 MG TABLET 17.2 MG PO (21:41)
[2020-10-23] MEDS: DOCUSATE 100 MG CAPSULE PO (21:41)
[2020-10-24] VITALS (9 sets, daily range): BP systolic 101–122; BP diastolic 58–84; PULSE 66–72; RESP 14–19; TEMP 36–36.6; O2SAT 88–98
[2020-10-24] MEDS: FUROSEMIDE 40 MG/4 ML VIAL IV ×2 (00:14→13:25)
[2020-10-24 06:29] LABS: BUN Creatinine Ratio 15.3 (6-22); Blood Urea Nitrogen 21 mg/dL (9-20); Calcium 9.2 mg/dL (8.4-10.2); Carbon Dioxide 29 mmol/L (22-32); Chloride 103 mmol/L (98-107); Estimated Glomerular Filt Rate 51.1 mL/min (>60); Glucose 164 mg/dL (80-110); HEMOLYSIS < 15 (0-50); Potassium 3.5 mmol/L (3.4-5.1); Sodium 141 mmol/L (137-145)
[2020-10-24] MEDS: PANTOPRAZOLE DR 40 MG TABLET PO (06:45)
[2020-10-24] MEDS: ONDANSETRON 4 MG/2 ML INJ IV (06:48)
[2020-10-24] MEDS: TRAMADOL 50 MG TABLET PO ×2 (06:54→21:11)
[2020-10-24] MEDS: PRAMIPEXOLE 1 MG TABLET PO (09:59)
[2020-10-24] MEDS: GABAPENTIN 600 MG TABLET PO ×3 (09:59→21:09)
[2020-10-24] MEDS: CALCIUM CARBONATE 500 MG TAB PO (09:59)
[2020-10-24] MEDS: APIXABAN 5 MG TABLET PO ×2 (10:00→21:09)
[2020-10-24] MEDS: INSULIN LISPRO 100 UNIT/ML 3ML VIAL SUBCUT ×4 (10:00→21:09)
[2020-10-24] MEDS: METOPROLOL ER 25 MG TABLET 12.5 MG PO (10:00)
[2020-10-24] MEDS: SPIRONOLACTONE 25 MG TABLET PO (10:00)
[2020-10-24] MEDS: CLOPIDOGREL 75 MG TABLET PO (10:00)
[2020-10-24] MEDS: DOCUSATE 100 MG CAPSULE PO ×2 (10:01→21:09)
[2020-10-24] MEDS: TOLTERODINE LA 4 MG PO (10:07)
--- NOTE | 2020-10-24 10:41 | PT.IPTN ---
Current Diagnoses Heart failure, unspecified (10/23/20) Physical Therapy Treatment Note M2 PT-IP Current Condition Start: 10/23/20 17:10 Freq: NEEDED Status: Active Protocol: Document 10/23/20 16:25 AB (Rec: 10/23/20 17:24 AB [id number]) Physical Therapy Current Condition Current Condition Evaluation Date 10/23/20 Treatment Diagnosis CHF exacerbation; difficulty in walking Onset Date 10/23/20 Precautions Other Precautions O2 sat M3 PT-IP Subjective Start: 10/23/20 17:10 Freq: NEEDED Status: Active Protocol: Document 10/24/20 10:18 CLB (Rec: 10/24/20 11:58 CLB [id number]) Subjective Physical Therapy Visit Type Type Treatment Note Visit Start Time 10:18 Visit Stop Time 10:41 Total Visit Minutes 23 Number of CRUSHER DRY GROUND MICA Visits 1 Physical Therapy Visit Comments Patient Comments agreeable to do PT Therapy Pain Assessment Pain When Pain Assessed At Rest Pain Present Pain Present Denied Pain M4 PT-IP Mobility and Gait Start: 10/23/20 17:10 Freq: NEEDED Status: Active Protocol: Document 10/24/20 10:18 CLB (Rec: 10/24/20 11:58 CLB [id number]) PT-Bed Mobility Assessment Supine to Sit Supine to Sit Standby Assistance,Head of Bed Elevated Scooting Scooting to Edge of Bed Standby Assistance PT-Transfer Assessment Sit to and From Stand Sit to and from Stand Standby Assistance,1 Person Assistance,Use of Upper Extremities Equipment Transfer Assistive Device Gait Belt,Front Wheeled Walker Orthotic/Prosthetic Devices or Brace: No Transfers Transfer Destination Chair,Toilet Transfer Technique ambulated using FWW Transfer Ability Level of Assist Standby Assistance,1 Person Assistance,Use of Upper Extremities Comments Mobility Comments Pt in bed on 2L O2 Spo2 94%. Pt able to get to EOB SBA and assisted pt with donning gown. Pt then stood SBA and ambulated in room CGA the SBA with SpO2 between 92-94%. Pt removed O2 to walk into bathroom with SpO2 decreasing to 88% but able to take a few deep breaths with O2 increasing to 90%. Pt replaced O2 sitting in chair and SpO2 on 2L 98-96% during seated ther ex. Pt left in chair, informed RN pt does not have chair alarm and of O2 needs during tx. Gait Assessment Gait Gait Assistance Required: Standby Assistance,1 Person Assist Distance (Feet) 60 Able to Maintain Weight Bearing Status Yes During Gait Assistive Devices Assistive Device Gait Belt,Front Wheeled Walker Orthotic/Prosthetic Devices or Brace: No Gait Deviations General Gait Pattern Decreased Stride Length, Decreased Feet Clearance,Wide Based Gait Factors Limiting Gait Function Factors Limiting Gait Function Decreased Activity Tolerance, Decreased Strength,Poor Balance,Respiratory Distress Comments Gait Comments pls refer to mobility section for details PT-Balance Assessment Sitting Balance and Reactions Static Sitting Balance Ability Good Dynamic Sitting Balance Ability Good Standing Balance and Reactions Static Standing Balance Ability Fair Dynamic Standing Balance Ability Fair Device Used FWW M5 PT-IP Objective Assessments Start: 10/23/20 17:10 Freq: NEEDED Status: Active Protocol: Document 10/23/20 16:25 AB (Rec: 10/23/20 17:24 AB [id number]) Orientation Orientation/Cognition Level of Alertness Alert Orientation Name,Place,Situation Language Function Ability No Deficits Noted Safety Awareness Decreased Safety Awareness Memory Description No Deficits Noted Gross Range of Motion Lower Extremity ROM Assessment Within Functional Limits Strength Lower Extremity Strength Hip 4-/5 Knee 4-/5 Sensation Assessment Sensation Gross Sensation WNL Muscle Tone Muscle Tone WNL Yes M6 PT-IP Treatment Start: 10/23/20 17:10 Freq: NEEDED Status: Active Protocol: Document 10/24/20 10:18 CLB (Rec: 10/24/20 11:58 CLB [id number]) Physical Therapy Treatment Exercises Exercises Ankle Pumps,Quad Sets,Seated Knee Flexion/Extension Other Treatments Other Treatment Performed seated marches M7 PT-IP Assessment and Plan Start: 10/23/20 17:10 Freq: NEEDED Status: Active Protocol: Document 10/24/20 10:18 CLB (Rec: 10/24/20 11:58 CLB [id number]) PT Summary Assessment and Plan Potential Rehabilitation Potential Good Status of Condition at Evaluation Stable Summary Impairments Strength,Balance,Coordination, Bed Mobility,Transfers,Gait, Activity Tolerance Progress Towards Goals Progressing Toward Goals Assessment Summary Pt improving with mobility, pt able to perform bed mobility SBA and ambulate in room SBA. Pt SpO2 remained WNL on 2L and decreased to 88% on RA. Pt will benefit from HHPT to improve strength to increase activity tolerance and idependent mobility upon d/c to [facility]. Goals Bed Mobility Goal Independent Transfer Goal Independent,Front Wheeled Walker Gait Goal Independent,Front Wheel Walker Gait Distance 150 Days to Meet Goals 5 Frequency of Treatment Frequency Of Treatment Once a Day Treatment Plan Physical Therapy Treatment Plan Bed Mobility Training,Transfer Training,Gait Training, Therapeutic Exercise,Balance Retraining,Discharge Planning, Neuromuscular Re-ed, Coordination Retraining Other Recommendations and Next Treatment ambulation in romano Focus Recommendations To Nursing Amount of Assist Needed 1 Person Assist Discharge Recommendations PT Discharge Recommendations Home with Assistance,Home Health Transportation Needs at Discharge Private Vehicle,Wheelchair/ Cabulance
--- NOTE | 2020-10-24 11:32 | PC.NURSE ---
Patient lungs sounds with some fine crackles in bases. He is alert and oriented x3. Given medications this morning and tolerated well. Occupational therapy is giving patient a shower now. He does have some edema to his lower extremities, is on 1-2L of 02 as RA sats drop to 88%
--- NOTE | 2020-10-24 12:08 | OT.IP.EVAL ---
Current Diagnoses Heart failure, unspecified (10/23/20) Past Medical History (Last Reviewed 10/23/20 @ 09:56 by Juan Hayes DO) Congestive heart failure Pacemaker Surgical History (Last Reviewed 09/29/20 @ 22:19 by He Culp MD) H/O aortic valve replacement History of back surgery Occupational Therapy Inpatient Evaluation/Re-Eval M1 PT/OT-IP Prior Functional Status Start: 10/23/20 17:10 Freq: NEEDED Status: Active Protocol: Document 10/24/20 11:05 [facility] (Rec: 10/24/20 12:08 [facility] [id number]) Medical Review Prior Functional Status Medical History Reviewed Yes Communication able to make needs known Mobility and Gait pt stated that he is modified independent with all mobilities and ambulation using a FWW Activities of Daily Living and IADL's Stated that he has assists with his showers, medications, and his daughter assist with his bills. Social History Household Members none Living Arrangements Assisted Living Number of Floors (Floors) One Floor Number of Stairs To Enter/Railing? Pt lives at [facility] Environment Standard Height Toilet,Walk in Shower Home Equipment Front Wheel Walker,Shower Seat with Backrest,Hand Held Shower,Grab Bars Near Toilet, Grab Bars In Shower Additional Social History Comment pt stated that he does not use O2 at home pt stated that he has an adjustable bed at home but without rails M2 OT-IP Current Condition Start: 10/24/20 11:50 Freq: Status: Active Protocol: Document 10/24/20 11:05 [facility] (Rec: 10/24/20 12:08 [facility] [id number]) Occupational Therapy Current Condition Current Condition Evaluation Date 10/24/20 Treatment Diagnosis CHF exacerbation Diagnosis Onset Date 10/23/20 M3 OT- IP Subjective and Pain Start: 10/24/20 11:50 Freq: Status: Active Protocol: Document 10/24/20 11:05 [facility] (Rec: 10/24/20 12:08 [facility] [id number]) OT- Subjective Occupational Therapy Visit Type Type Initial Evaluation Visit Start Time 11:05 Visit Stop Time 11:41 Total Visit Minutes 35 Occupational Therapy Visit Comments Patient Comments Pt agreed to take a shower. Able to tell nursing that pt wanting his IV cleaned/flushed. Patient/Caregiver Goals TO go back home. OT Pain Assessment Pain When Pain Assessed At Rest Pain Present Pain Present Denied Pain M4 OT- IP ADL's Start: 10/24/20 11:50 Freq: Status: Active Protocol: Document 10/24/20 11:05 [facility] (Rec: 10/24/20 12:08 [facility] [id number]) OT [id number] Comments OT Self-Feeding Comments Not at meal time. OT ADL-Grooming General Evaluation Grooming Ability Standby Assistance Areas Needing Assistance Retrieving/Set-up of Grooming Items,Combing/Brushing Hair OT ADL-Dressing General Eval Lower Body Dressing Ability Moderate Assistance Areas Needing Assistance Socks Comments OT Dressing Comments Pt able to doff socks and too tired to attempt to get the sock on after the shower. OT ADL-Toileting General Evaluation Toileting Ability Standby Assistance,Moderate Assistance Comments OT Toileting Comments Pt able to stand to urinate. Pt more likely will need assist for completeness after a bowel movement as needing assist for pericare needs in the shower. OT ADL-Bathing Bathing Type Bathing Type Shower General Evaluation Bathing Ability Moderate Assistance Areas Needing Assistance Wash/Dry Back,Wash/Dry Perineal Area Devices Bathing Equipment Hand Held Shower Sprayer, Shower Chair with Arms,Grab Bars M5 OT- IP IADL's Start: 10/24/20 11:50 Freq: Status: Active Protocol: Document 10/24/20 11:05 [facility] (Rec: 10/24/20 12:08 [facility] [id number]) OT-Instrumental Activities of Daily Living Home Safety Awareness Awareness of Need for Assistance at Home Good Awareness Ability to Problem Solve Emergency Able to Problem Solve Situations Medication Management Medication Management Caregiver Administers Money Management Money Management Caregiver Provides Assistance Meal Preparation Meal Preparation Caregiver Provides Assist Ball Mill Mixer Ball Mill Mixer Caregiver Provides Assist M6 OT- IP Functional Cognition Start: 10/24/20 11:50 Freq: Status: Active Protocol: Document 10/24/20 11:05 [facility] (Rec: 10/24/20 12:08 [facility] [id number]) Cognitive Factors Limiting Selfcare Function Cognitive Ability Level of Alertness Alert Patient Orientation Name,Place,Situation Attention Span Ability Capable of Focused Attention, Capable of Sustained Attention Ability to Follow Commands Able to Follow One Step Commands Memory Description Short Term Impaired Safety Awareness Underestimates Need for Assistance Cognitive Comments Cognitive Assessment Comments Pt forgetting how to control the water temperature after initial education. Pt tends to push the FWW aside while standing with grab bar to urinate while standing. OT- Vision and Hearing OT- Hearing Assessment OT- Hearing Assessment WFL OT- Vision Assessment Visual Acuity Glasses All The Time Visual Attentiveness WFL Occular Pursuits WFL M7 OT- IP Mobility and Balance Start: 10/24/20 11:50 Freq: Status: Active Protocol: Document 10/24/20 11:05 [facility] (Rec: 10/24/20 12:08 [facility] [id number]) OT-Transfer Assessment Sit to and From Stand Sit to and from Stand Standby Assistance Transfers Transfer Ability Standby Assistance,Contact Guard Assistance Technique Transfer Destination Chair,Shower Stall Transfer Technique Stand Step Pivot Devices Transfer Assistive Devices Gait Belt,Front Wheeled Walker Comments Mobility Comments Pt needing a little steadying while stepping into the shower over the threshold and also use of grab bar to assist. Pt on O2 2L 94% and when at rest on RA dropped to 86%, therefore decided to keep the O2 on while in the shower. OT- Balance Assessment Sitting Balance and Reactions Static Sitting Balance Ability Normal Dynamic Sitting Balance Ability Good Standing Balance and Reactions Static Standing Balance Ability Fair M8 OT- IP Objective Assessments Start: 10/24/20 11:50 Freq: Status: Active Protocol: Document 10/24/20 11:05 [facility] (Rec: 10/24/20 12:08 [facility] [id number]) OT Gross Range of Motion Upper Extremity Range of Motion ROM Impairments BUE 0-100 shoulder flexion, LUE tends to internally rotate as his shoulder greater than right shoulder. OT Strength Comments Strength Comments 4/5 throughout BUE OT- Coordination Assessment Comments Coordination Comments Intact for grooming needs. OT-Muscle Tone Assessment Muscle Tone WNL Yes OT Sensation Assessment Comments Summary Comments Intact M9 OT- IP Assessment and Plan Start: 10/24/20 11:50 Freq: Status: Active Protocol: Document 10/24/20 11:05 [facility] (Rec: 10/24/20 12:08 [facility] [id number]) OT Summary Assessment and Plan Potential Rehabilitation Potential Good Analytic Complexity at Evaluation Low Summary OT Impairments Strength,Balance,Functional Mobility,Dressing,Toileting, Bathing,Shower Transfers, Activity Tolerance Progress Towards Goals Progressing Toward Goals Assessment Summary Pt low complexity and here due to CHF exacerbation and main barrier is now on O2 and having decreased activity tolerance for his needs. Pt looking to go back to [facility] when medically stable. Goals Grooming Goal Independent Dressing Goal Independent Toileting Goal Minimal Assistance Bathing Goal Moderate Assistance Toilet Transfer Goal Independent Shower Transfer Goal Standby Assistance Days to Meet Goals 5 Frequency of Treatment Frequency Of Treatment Once a Day Treatment Plan OT Treatment Plan ADL Training,Functional Mobility,Patient/Family Education,Discharge Planning Other Treatment Recommendations and Next Go over O2 management needs Treatment Focus and energy conservation. Discharge Recommendations OT Discharge Recommendations Home with Assistance, home health Other Discharge Recommendations Pt lives at [facility] Transportation Needs at Discharge Private Vehicle,Wheelchair/ Cabulance
--- NOTE | 2020-10-24 13:01 | CM.IDA ---
Addendum entered by JAYLEN Corona 10/24/20 16:05: Spoke w/ patient and w/Dr Saenz; patient ready to DC pending ambulation trial w/o O2, ASAD Mann to assist w/this . Placed call to [facility], P# [phone]. Spoke w/Ina Bhatti ext. [phone] and w/[facility] RN, they cannot accept patient back home this late in the day d/t improper staffing, would not be safe for patient and other residents. Updated RN Johnathan, patient and Dr Saenz; plan is to DC patient tomorrow AM via facility van. All agreeable. This STAKING PRESS OPERATOR will continue coordination tomorrow AM w/ Ina at [facility]. Following closely. JULIA Original Note: Initial DCP Assessment Note Pt is a 70 yo male, resident of [facility] in [place], patient presents w/ SOB h/o CHF, significant cardiac history and EF of approx 20% PCP: Dr Hart Payer: AARTammy STARK/GARCIA Reviewed chart, met w/patient this morning to introduce role. Patient lives at [facility], able to complete most ADLs indp, does not use O2 at baseline. Patient is in the process of assigning his dtr Arlet as DPOA, no signed ppk yet. Patient anticipates he will return to [facility] upon DC. Reviewed PT eval after this visit, HH PT recommended, will plan to discuss w/patient. JAYLEN Corona Discharge Planning/Care Management CM Discharge Assessment Start: 10/24/20 12:52 Freq: Status: Active Protocol: Document 10/24/20 12:55 JULIA (Rec: 10/24/20 13:01 JULIA [id number]) Discharge Planning Assessment Assigned Brim Pouncer JAYLEN Lerma DPOA/Assigned Designee Name Arlet Bueno dtr Contact Information [phone] Advance Directives? Yes Advance Directives on File Yes History Provided By Patient Prior Living Arrangements Assisted Living Household Members none Facility Name Admitted From: [facility] Willing to Return to Facility? Yes Independent with ADL's Yes: Mod Indp Is patient alert and oriented? Yes Needs Assistance With Bathing,Meal Prep,Managing Medications,Home Chores / Shopping Barriers to Discharge No Comment Back to [facility] when medically cleared Discharge Plan Assisted Living Facility Transportation Arrangement Likely facility van vs [facility] transportation Referrals Initiated None needed Additional Comment At this time Review Status In Process
[2020-10-24] MEDS: lisinopriL 5 MG TABLET 2.5 MG PO (13:24)
--- NOTE | 2020-10-24 15:52 | P.DS_ITS ---
History of Present Illness History of Present Illness Chief complaint: CHF/COPD Narrative: The patient is a 70-year-old male with a history of congestive heart failure with preserved ejection fraction, coronary artery disease, history of aortic valve repair, status post permanent pacemaker placement, type 2 diabetes on insulin, GERD he, depression, history of prostate restless leg syndrome, who presents to the hospital with abrupt onset shortness of breath. Patient was hospitalized and discharged a month ago. He has not followed up with Cardiology since that time. Patient states he was well until the past few days when he became increasingly short of breath. The patient awoke at 6:00 a.m. this morning abruptly short of breath. He felt he was unable to breathe. Patient was brought into emergency department where he was found to be tachypneic although not hypoxic. Patient states he has been taking his medications as prescribed. Was given a dose of IV Lasix with excellent response. Patient is being admitted to the hospital for treatment of acute congestive heart failure. Hospitalization echocardiogram was obtained. Echo revealed an ejection fraction of 20-25%, severe reduced systolic function, dilated left ventricular enlargement, prosthetic aortic valve was well seated and opened well. Patient is admitted to the hospital for acute decompensated congestive heart failure. Discharge Providers Provider Date of admission: 10/23/20 11:04 Discharge Date: 10/25/20 Consults: 10/23/20 15:01 Consult to Occupational Therapy Evaluate & Treat Comment: Physician Instructions: Evaluate and treat Consult to Physical Therapy Evaluate & Treat Comment: Physician Instructions: Evaluate and Treat Discharge provider: Tammie Saenz MD Summary Hospital Course Discharge Diagnosis: 1. Acute systolic heart failure, present on admission, action fraction 20-25% 2. Coronary artery disease 3. History of aortic valve repair 4. History of permanent pace 5. Restless legs syndrome 6. GERD 7. Depression 8. Acute hypoxic respiratory failure secondary to congestive heart failure now resolved 9. Chronic Kidney disease Stage 2 Hospital Course: The patient is a 70-year-old male with a history of chronic sys tolic heart failure, he has a known ejection fraction 20-25%. Patient was admitted to the hospital for acute shortness of breath. His proBNP was elevated at 2300. It patient received IV Lasix twice. It he had significant urine output. Patient was hypoxic at rest with a room air sat of 88%. He required 1- 2 L. With continued diuresis his oxygen saturation improved to 95% patient felt back to his baseline and was deemed appropriate for discharge back to [facility]. Status at Discharge Cognitive/behavioral status at discharge: oriented Functional status at discharge: independent ambulation Overall status at discharge: patient is back to baseline Time Spent with Patient Time spent: Less than 30 minutes Exam Vital Signs (past 8 hours): - 10/24/20 11:00 10/24/20 11:35 10/24/20 11:49 Temperature 97.3 F L Pulse Rate 69 Respiratory Rate 16 Blood Pressure 121/84 Pulse Oximetry 95 88 L 98 Oxygen Delivery Method Nasal Cannula Oxygen Flow Rate 0 Narrative Exam Narrative: Pleasant male lying in bed in no obvious Lungs decreased breath sounds with occasional basilar crackles Cardiac exam: Regular rate and rhythm normal S1-S2 Abdomen soft nontender nondistended Extremities trace edema Objective Labs Result Diagrams: 10/23/20 09:57 10/25/20 05:15 Labs: Laboratory Results - last 24 hr 10/24/20 05:57 Sodium 141 Potassium 3.5 Chloride 103 Carbon Dioxide 29 BUN 21 H Creatinine 1.37 H Estimated GFR 51.1 L BUN/Creatinine Ratio 15.3 Glucose 164 H Calcium 9.2 PFSH Medical History Congestive heart failure Pacemaker Surgical History H/O aortic valve replacement History of back surgery Family History (Updated 10/23/20 @ 17:35 by Tammie Saenz MD) Mother Coronary artery disease involving bypass graft of transplanted heart Cancer Social History household members: none Smoking Status: Former smoker Discharge Assessment & Plan Assessment and Plan Assessment: 1. Acute systolic heart failure 2. Acute hypoxic respiratory failure secondary to heart failure 3. Type 2 diabetes Number status post aortic valve replacement 5. Hypertension 6. Coronary disease 7. Plan of Treatment: Medications as prescribed Discharge home 1st thing in the morning Discharge Plan Discharge Plan Patient Disposition: Home Provider Discharge Comment: need follow up basic metabolic profile in 2-3 days Discharge orders & Medications Prescriptions: New spironolactone 25 mg Tablet 25 mg PO DAILY Qty: 30 RF: 0 lisinopril 5 mg Tablet 2.5 mg PO DAILY Qty: 30 RF: 0 Continued pantoprazole tablet 40 mg PO QAM RF: 0 tolterodine [Detrol LA] 4 mg Capsule,Extended Release 24hr 4 mg PO Q24H RF: 0 Plavix tablet 75 mg PO QAM RF: 0 calcium carbonate 500 mg PO QAM RF: 0 metoprolol succinate 12.5 mg PO QAM RF: 0 Zoloft 100 mg PO QAM RF: 0 insulin glargine 100 unit/mL Cartridge 42 unit SUBCUT BEDTIME RF: 0 gabapentin 600 mg PO TID RF: 0 Mirapex 1 mg PO BEDTIME RF: 0 metformin 500 mg PO BID RF: 0 apixaban 5 mg PO BID RF: 0 insulin lispro 100 unit/mL Insulin Pen See Rx Instructions .ROUTE .COMPLEX RF: 0 furosemide [Lasix] 20 mg Tablet 40 mg PO QAM 30 Days Qty: 60 RF: 0 bicalutamide 50 mg tablet 50 mg PO DAILY RF: 0 trazodone 50 mg tablet 50 mg PO BEDTIME RF: 0 ibuprofen 400 mg tablet 400 mg PO PRN PRN (Reason: Pain, Mild) RF: 0 Discharge Health Status Multidrug resistant organism: No MDRO Diet/Activity/Treatments Diet: Low-sodium and Low-cholesterol Discharge Data Attending Provider: Tammie Saenz VTE Deep Vein Thrombosis/Pulmonary Embolism Present on Admission: No
--- NOTE | 2020-10-24 16:05 | P.PN_ITS ---
Subjective Subjective Date Patient Seen: 10/24/20 Interval history: Patient is a 70-year-old male admitted to the hospital for acute shortness of breath. He has previously been hypoxic on room air. His O2 sat dropped to 88% with continued diuresis his oxygenation improved. He is no longer short of breath. Patient feels back to Exam Vital Signs (past 8 hours): - 10/24/20 11:00 10/24/20 11:35 10/24/20 11:49 Temperature 97.3 F L Pulse Rate 69 Respiratory Rate 16 Blood Pressure 121/84 Pulse Oximetry 95 88 L 98 10/24/20 15:59 Temperature Pulse Rate 66 Respiratory Rate Blood Pressure Pulse Oximetry 92 Oxygen Delivery Method Nasal Cannula Oxygen Flow Rate 0 Narrative Exam Narrative: Pleasant gentleman sitting in a chair Lungs decreased breath sounds with occasional basilar Cardiac exam regular rate rhythm normal S1-S2 Abdo soft and nontender nondistended Extremity trace today Objective Labs Result Diagrams: 10/23/20 09:57 10/24/20 05:57 Labs: Laboratory Results - last 24 hr 10/24/20 05:57 Sodium 141 Potassium 3.5 Chloride 103 Carbon Dioxide 29 BUN 21 H Creatinine 1.37 H Estimated GFR 51.1 L BUN/Creatinine Ratio 15.3 Glucose 164 H Calcium 9.2 PFSH Medical History Congestive heart failure Pacemaker Surgical History H/O aortic valve replacement History of back surgery Family History (Updated 10/23/20 @ 17:35 by Tammie Saenz MD) Mother Coronary artery disease involving bypass graft of transplanted heart Cancer Social History household members: none Smoking Status: Former smoker Assessment & Plan Assessment & Plan narrative: 70-year-old male admitted to the hospital with acute decompensated systolic heart failure with associated acute hypoxic respiratory failure -O2 sat 80% earlier diuresis oxygen saturation at rest is 92% -patient with progressive dyspnea on exertion, PND -cardiac echo during his last admission confirms severe dilated left ventricular enlargement, moderately increased thickness and severe reduced systolic function with EF of 20-25 per con seated prosthetic aortic valve - chest x-ray confirms cardiomegaly with mild congestion -proBNP elevated at 2370 -will change Lasix to 40 mg p.o. -will start low-dose YASHIRA-inhibitor -will continue metoprolol -start lisinopril 2.5 daily 2. Type 2 diabetes -continue basal bolus insulin 3. Coronary artery disease -status post stent -no evidence of acute ischemia 4. Status post aortic valve her -Will continue apixaban 5. Status post permanent pacemaker placed 6. Hypertension -patient has previously been hypo 10 -will continue metoprolol -Lasix will help -lisinopril 7. Depression -continues on 8. Restless legs in -continue Mirapex -continue gabapentin Patient reports he is DNR DNI and will note that his record a core Patient will discharge back to [place] in the morning Quality VTE Deep Vein Thrombosis/Pulmonary Embolism Present on Admission: No
[2020-10-24] MEDS: SENNOSIDES 8.6 MG TABLET 17.2 MG PO (21:09)
[2020-10-24] MEDS: INSULIN GLARGINE 100 UNIT/ML 3ML PEN 40 UNIT SUBCUT (21:09)
[2020-10-24] MEDS: SERTRALINE 50 MG TABLET PO (21:09)
[2020-10-24] MEDS: TRAZODONE 50 MG TABLET PO (21:09)
[2020-10-25] VITALS (8 sets, daily range): BP systolic 99–113; BP diastolic 49–68; PULSE 66–76; RESP 19–20; TEMP 36.3–37; O2SAT 94–95
[2020-10-25] MEDS: SODIUM CHLORIDE 0.9% FLUSH 10 ML IV ×2 (05:28→08:42)
[2020-10-25] MEDS: PANTOPRAZOLE DR 40 MG TABLET PO (05:28)
[2020-10-25 05:45] LABS: BUN Creatinine Ratio 18.9 (6-22); Blood Urea Nitrogen 27 mg/dL (9-20); Carbon Dioxide 31 mmol/L (22-32); Chloride 100 mmol/L (98-107); Estimated Glomerular Filt Rate 48.6 mL/min (>60); Glucose 149 mg/dL (80-110); HEMOLYSIS < 15 (0-50); Potassium 3.6 mmol/L (3.4-5.1); Sodium 137 mmol/L (137-145)
[2020-10-25] MEDS: INSULIN LISPRO 100 UNIT/ML 3ML VIAL SUBCUT ×2 (08:37→12:51)
[2020-10-25] MEDS: APIXABAN 5 MG TABLET PO (08:40)
[2020-10-25] MEDS: CALCIUM CARBONATE 500 MG TAB PO (08:40)
[2020-10-25] MEDS: CLOPIDOGREL 75 MG TABLET PO (08:40)
[2020-10-25] MEDS: lisinopriL 5 MG TABLET 2.5 MG PO (08:41)
[2020-10-25] MEDS: FUROSEMIDE 40 MG TABLET PO (08:41)
[2020-10-25] MEDS: GABAPENTIN 600 MG TABLET PO (08:41)
[2020-10-25] MEDS: DOCUSATE 100 MG CAPSULE PO (08:41)
[2020-10-25] MEDS: METOPROLOL ER 25 MG TABLET 12.5 MG PO (08:42)
[2020-10-25] MEDS: PRAMIPEXOLE 1 MG TABLET PO (08:42)
[2020-10-25] MEDS: SPIRONOLACTONE 25 MG TABLET PO (08:43)
[2020-10-25] MEDS: TOLTERODINE LA 4 MG PO (08:56)
--- NOTE | 2020-10-25 09:02 | PT-IP ANOTE ---
Pt refused PT stating he is not feeling well and would like to rest at this time. Will check back with pt later today.
--- NOTE | 2020-10-25 09:54 | PC.NURSE ---
Addendum entered by Alyssa Wright R.N. 10/25/20 14:41: Patients prescriptions and paperwork given to facility transport designee, patients IV removed by student nurse, tele off. Patient dressed with assist and discharged via wheelchair. Original Note: Patient is A/O x 4, sitting up to chair this AM. Denies SOB at rest, reports increased WOB with activity. Requiring 2L of NC to maintain O2 above 90%. Patient remains on O2 at this time, 94%, continuous pulse ox on, lungs clear. Tele on, pulses equal, murmur noted, no edema noted this AM, patient tolerating PO lasix, voiding in urinal. Denies dizziness, lightheadedness or chest pain. Patient denies pain. Reports feeling a bit tired this morning, refused physical therapy. Patient remains on fluid restriction. Call light in reach. Denies further needs at this time.
--- NOTE | 2020-10-25 10:41 | OT.IPNOTE ---
Attempted to see pt for Ot treatment and pt states not feeling well and not wanting to get up for therapy at this time. Nursing aware of pt's status and to check on the pt later.
--- NOTE | 2020-10-25 12:40 | PT-IP ANOTE ---
Pt refused this afternoon tx as pt had just been up ambulating with RT.
--- NOTE | 2020-10-25 14:45 | CM.DPNOTE ---
DC Note RT has completed assess for home O2 and patient does not require home O2. Dr Saenz discharged patient for return home to [facility] Faxed completed and signed med list, Rx and DC Summary to [facility]. Spoke to Ina at [facility] who coordinated facility naina p/u at approx 1430 Plan: DC back to [facility] via facility naina [facility]
== END 2020-10-25 13:44 | disposition home or self-care (01) ==
LOC: ED 10:56 → AC 11:39
PROVIDERS: Admitting Provider Internal Medicine; Emergency Provider Emergency Medicine; Referring Provider Emergency Medicine; Visit Provider Internal Medicine
DX: I13.0 Hypertensive heart and chronic kidney disease with heart failure and stage 1 through stage 4 chronic kidney disease, or unspecified chronic kidney disease (principal); I50.23 Acute on chronic systolic (congestive) heart failure; I11.0 Hypertensive heart disease with heart failure; J96.01 Acute respiratory failure with hypoxia; N18.2 Chronic kidney disease, stage 2 (mild); I25.10 Atherosclerotic heart disease of native coronary artery without angina pectoris; G25.81 Restless legs syndrome; Z95.0 Presence of cardiac pacemaker; E11.9 Type 2 diabetes mellitus without complications; Z79.4 Long term (current) use of insulin; K21.9 Gastro-esophageal reflux disease without esophagitis; Z79.01 Long term (current) use of anticoagulants; F32.9 Major depressive disorder, single episode, unspecified; Z87.891 Personal history of nicotine dependence; Z20.822 Contact with and (suspected) exposure to COVID-19
CPT/HCPCS: 36415; 71045; 80048; 80053; 82550; 82962; 83690; 83880; 84484; 85025; 85610; 85730; 87635; 93005; 94618; 94762; 96372; 96374; 96375; 96376; 97116; 97161; 97165; 97530; 99284; C9803; G0378; J1815; J1940; J2405

== ENCOUNTER 2020-10-27 09:05 | Emergency (ER) | payer MEDICARE, MEDICAID, SELFPAY ==
[2020-10-23 13:01] VITALS: BMI 38.4
--- NOTE | 2020-10-27 09:13 | DI.RAD.S_ITS ---
PROCEDURE: XR CHEST 1V INDICATIONS: Short of breath TECHNIQUE: One view of the chest was acquired. COMPARISON: [facility], CR, XR CHEST 1 VIEW, 07/27/2020, 18:06. [facility], CR, XR CHEST 1V, 09/29/2020, 6:29. [facility], CR, XR CHEST 1V, 10/23/2020, 9:50. FINDINGS: Surgical changes and devices: A pacer device is seen. The leads are seen in stable positions. A percutaneously placed aortic valve replacement can be seen. Lungs and pleura: No pleural effusions or pneumothorax. Mild interstitial prominence is seen throughout, which is improved compared to the 10/23/2020 examination. Mediastinum: Mediastinal contours appear normal. Heart size is moderately enlarged. Bones and chest wall: No suspicious bony lesions. Age-appropriate bony degenerative changes are seen. Overlying soft tissues appear unremarkable. IMPRESSION: Cardiomegaly and interstitial prominence. The interstitial prominence is improved compared to the prior examination. These imaging findings are attributed to improving CHF. Dictated by: Yong Morley M.D. on 10/27/2020 at 8:32 Approved by: Yong Morley M.D. on 10/27/2020 at 8:34
[2020-10-27] MEDS: ALBUTEROL/IPRATROPIUM 3 ML AMPUL INH (09:27)
--- NOTE | 2020-10-27 09:38 | ED_ITS ---
HPI - SOB/Dyspnea General Chief Complaint: Shortness of Breath/Dyspnea Stated Complaint: CHF Time Seen by Provider: 10/27/20 09:12 Source: patient, EMS and old records reviewed Mode of arrival: EMS Limitations: no limitations History of Present Illness HPI Narrative: Patient is a 70-year-old male with past medical history CHF, coronary artery disease, insulin-dependent diabetes is presenting today with increasing shortness of breath. He has had 2 recent hospitalizations for CHF exacerbation 1 in September 29 through September 30 and most recent October 23 through October 25. In September he was discharged on his home dose of furosemide 40 mg daily, dose a few days ago. Last evening he had orthopnea and yesterday he had p rogressive increasing shortness of breath with exertion she he is also having some mild chest pain. No fever or cough. No significant lower extremity edema. He said he felt the best when he was on oxygen in the hospital. He currently has an O2 sat of 92% on room air but he does appear to be acutely dyspneic. MD Complaint: shortness of breath Context: occurred during exertion Severity: moderate Consistency/Duration: constant Relieving factors: oxygen and upright position Known history of: congestive heart failure Related Data Home Medications Medication Instructions Recorded Confirmed Mirapex 1 mg PO BEDTIME 09/29/20 10/23/20 Plavix 75 mg PO QAM 09/29/20 10/23/20 Zoloft 100 mg PO QAM 09/29/20 10/23/20 apixaban 5 mg PO BID 09/29/20 10/23/20 calcium carbonate 500 mg PO QAM 09/29/20 10/23/20 gabapentin 600 mg PO TID 09/29/20 10/23/20 insulin glargine 42 unit SUBCUT BEDTIME 09/29/20 10/23/20 insulin lispro See Rx Instructions .ROUTE .COMPLEX 09/29/20 10/23/20 metformin 500 mg PO BID 09/29/20 10/23/20 metoprolol succinate 12.5 mg PO QAM 09/29/20 10/23/20 pantoprazole 40 mg PO QAM 09/29/20 10/23/20 tolterodine [Detrol LA] 4 mg PO Q24H 09/29/20 10/23/20 bicalutamide 50 mg PO DAILY 10/23/20 10/23/20 ibuprofen 400 mg PO PRN PRN 10/23/20 10/23/20 trazodone 50 mg PO BEDTIME 10/23/20 10/23/20 Previous Rx's Medication Instructions Recorded furosemide [Lasix] 40 mg PO QAM 30 Days #60 tab 09/30/20 lisinopril 2.5 mg PO DAILY #30 tab 10/25/20 spironolactone 25 mg PO DAILY #30 tab 10/25/20 Allergies Allergy/AdvReac Type Severity Reaction Status Date / Time carbidopa Allergy Verified 10/23/20 09:54 crab Allergy Verified 10/23/20 09:54 morphine Allergy Verified 10/23/20 09:54 Review of Systems Review of Systems ROS Unobtainable: All systems reviewed & are unremarkable except as noted in HPI and below Constitutional Constitutional: Denies chills, Denies fever(s), Denies lethargy and Denies weakness Eyes Eyes: Denies change in vision, Denies eye discharge, Denies irritation and Denies loss of vision ENT Ears, Nose, Mouth, and Throat: Denies dizziness Cardiovascular Cardiovascular: Reports as per HPI, Reports chest pain, Reports edema, Reports leg edema, Reports dyspnea on exertion and Reports orthopnea Respiratory Respiratory: Denies pain with cough and Reports dyspnea on exertion Gastrointestinal Gastrointestinal: Denies abdominal pain, Denies change in bowel habits, Denies diarrhea, Denies nausea and Denies vomiting Musculoskeletal Musculoskeletal: Denies back pain and Denies deformity Integumentary/Breasts Skin/Breast: Denies pruritus, Denies erythema, Denies rash and Denies wounds Neurologic Neurologic: Denies dizziness, Denies loss of vision and Denies weakness Patient History Medical History Congestive heart failure Diabetes GERD (gastroesophageal reflux disease) Pacemaker Surgical History H/O aortic valve replacement History of back surgery Family History Mother Coronary artery disease involving bypass graft of transplanted heart Cancer Social History household members: none Smoking Status: Former smoker Smoking Status: Former smoker alcohol intake frequency: holidays/special occasions only Substance Use Type: former substance user Exam Initial Vital Signs Initial Vital Signs: Vital Signs Pulse Rate 77 10/27/20 09:42 Respiratory Rate 24 10/27/20 09:42 Pulse Oximetry 100 10/27/20 09:42 GENERAL: Alert 70-year-old male appears to have mild to moderate respiratory di stress he also appears pale HEENT: Head atraumatic,EOMI, pupils reactive, face symmetric, moist mucous membranes CARDIOVASCULAR: Regular rate and rhythm without murmurs, rubs or gallops. RESPIRATORY: Tachypneic clear breath sounds bilaterally no wheezes rales or rhonchi ABDOMEN: Soft, nontender. Normoactive bowel sounds all 4 quadrants. No guarding or rebound. : No CVA tenderness EXTREMITIES: Normal range of motion, no clubbing or edema. Neurovascularly intact NEUROLOGICAL: Alert and oriented x4.Normal gait and speech. SKIN: Warm, dry, no laceration, no petechiae, no rashes or lesions. Course Orders Ordered: ED Orders 10/27/20 09:13 Consult to Respiratory Therapy Evaluate & Treat XR chest 1V Stat EKG-12 Lead Stat 10/27/20 10:40 Complete Blood Count AUTO DIFF Stat Comprehensive Metabolic Panel Stat NT-proBNP (BNP-Adult 18+) Stat Troponin & CK Cardiac Panel Stat Discontinued Medications Albuterol/Ipratropium (Albuterol/Ipratropium 3 Ml Ampul) 3 ml INH NOW ONE Stop: 10/27/20 09:13 Last Admin: 10/27/20 09:27 Dose: 3 ml Documented by: JOSE Furosemide (Furosemide 40 Mg/4 Ml Vial) 40 mg IV NOW ONE Stop: 10/27/20 09:45 Last Admin: 10/27/20 13:15 Dose: Not Given Documented by: MELISSA Furosemide (Furosemide 40 Mg Tablet) 40 mg PO NOW ONE Stop: 10/27/20 12:51 Last Admin: 10/27/20 13:14 Dose: 40 mg Documented by: MELISSA Vital Signs Vital signs: Vital Signs - 8 hr 10/27/20 09:42 10/27/20 12:45 10/27/20 12:48 Temperature 98.5 F Pulse Rate 77 84 83 Respiratory Rate 24 22 Blood Pressure 129/69 Pulse Oximetry 100 98 77 L 10/27/20 14:13 Temperature Pulse Rate 76 Respiratory Rate 20 Blood Pressure 125/63 Pulse Oximetry 98 MDM - SOB/Dyspnea Lab Data Attestation: I reviewed the patient's lab results. Result diagrams: 10/27/20 10:40 10/27/20 10:40 Labs: Lab Results 10/27/20 10/27/20 10/27/20 Range/Units 10:40 10:40 10:40 WBC 9.4 (4.5-11.0) X10^3/uL RBC 4.57 (4.5-5.9) X10^6/uL Hgb 10.3 L (13.5-17.5) g/dL Hct 32.3 L (41-53) % MCV 70.6 L (80-100) fL MCH 22.4 L (26-34) PG MCHC 31.7 (30-36) % RDW 18.0 H (11.6-14.8) % Plt Count 243 (150-400) X10^3/uL Neut % (Auto) 76.6 H (50-75) % Lymph % (Auto) 14.0 L (25-40) % Mccone % (Auto) 6.4 (3-14) % Eos % (Auto) 2.3 (2-4) % Baso % (Auto) 0.7 (0-2) % Neut # (Auto) 7200 H (0742-0442) /uL Lymph # (Auto) 1300 (5999-1558) /uL Mccone # (Auto) 600 (0-900) /uL Eos # (Auto) 200 (0-450) /uL Baso # (Auto) 100 (0-100) /uL Sodium 139 (137-145) mmol/L Potassium 3.9 (3.4-5.1) mmol/L Chloride 104 (98-107) mmol/L Carbon Dioxide 24 (22-32) mmol/L BUN 25 H (9-20) mg/dL Creatinine 1.20 (0.66-1.25) mg/dL Estimated GFR 59.5 L (>60) mL/min BUN/Creatinine Ratio 20.8 (6-22) Glucose 182 H (80-110) mg/dL Calcium 9.3 (8.4-10.2) mg/dL Total Bilirubin 0.3 (0.2-1.3) mg/dL AST 22 (17-59) IU/L ALT 17 (<50) IU/L Alkaline Phosphatase 79 (38-126) U/L Total Creatine Kinase 35 L (55-170) U/L CK-MB (CK-2) TNP CK-MB (CK-2) Rel Index TNP Troponin I 0.015 (0.01-0.034) ng/mL NT-Pro-B Natriuret Pep 3700 H (<125) pg/mL Total Protein 7.2 (6.3-8.2) g/dL Albumin 4.4 (3.5-5.0) g/dL Globulin 2.8 (1.7-4.1) g/dL Albumin/Globulin Ratio 1.6 (1.0-2.8) Urine Dip Bedside Urine Glucose Negative Bedside Urine Bilirubin - Negative Bedside Urine Ketone - Negative Urine Specific [place] 1.020 Bedside Urine Occult Blood - Negative Bedside Urine pH 6.0 Bedside Urine Protein - Negative Bedside Urine Urobilinogen - Negative Bedside Urine Nitrite - Negative Bedside Urine Leukocytes - Negative Esterase Imaging Data Chest x-ray: Radiologist's Impression: PROCEDURE: XR CHEST 1V INDICATIONS: Short of breath TECHNIQUE: One view of the chest was acquired. COMPARISON: [facility], CR, XR CHEST 1 VIEW, 07/27/2020, 18:06. [facility], CR, XR CHEST 1V, 09/29/2020, 6:29. [facility], CR, XR CHEST 1V, 10/23/2020, 9:50. FINDINGS: Surgical changes and devices: A pacer device is seen. The leads are seen in stable positions. A percutaneously placed aortic valve replacement can be seen. Lungs and pleura: No pleural effusions or pneumothorax. Mild interstitial prominence is seen throughout, which is improved compared to the 10/23/2020 examination. Mediastinum: Mediastinal contours appear normal. Heart size is moderately enlarged. Bones and chest wall: No suspicious bony lesions. Age-appropriate bony degenerative changes are seen. Overlying soft tissues appear unremarkable. IMPRESSION: Cardiomegaly and interstitial prominence. The interstitial prominence is improved compared to the prior examination. These imaging findings are attributed to improving CHF. Dictated by: Yong Morley M.D. on 10/27/2020 at 8:32 ECG Data Attestation: I personally reviewed and interpreted this ECG as follows: Interpretation: Paced rhythm rate 75 similar to prior MDM Narrative Medical decision making narrative: Unfortunately unable to get an IV inpatient however is he was given is medication prior to arrival as he has urinated almost 1 L from his 40 of Lasix that he was given at the facility. Patient had ambulation trial his O2 sat remained 95% or above heart rate 86. Not significantly dyspneic. BNP is slightly elevated chest x-ray suggest improving CHF patient has only ever been on 40 mg of Lasix once a day will increase his Lasix to twice a day for the next few days. He is quite convinced that he needs oxygen at night while he sleeps because he had it while in the hospital and it made him feel better. He has a CPAP machine that he does not always use. I discussed with him maybe he should use his CPAP machine. Patient is given a 2nd dose of Lasix by mouth he has urinated. 1400 Dr. bryant updated patient's symptoms test results in ED to see and evaluate patient. He walked him himself O2 sat remained at 90%. At this time we all agree that patient would do better back at the rehab facility however will increase his Lasix do 60 mg twice a day for 2 days and then 40 mg twice a day from then on out and also needs water restriction of 2 L. Discharge Plan Departure Patient Disposition: Home Clinical Impression: CHF exacerbation Qualifiers: Heart failure type: systolic Qualified Code(s): I50.23 - Acute on chronic systolic (congestive) heart failure Instructions: DI for Heart Failure Activity Restrictions/Additional Instructions: *You have been diagnosed with congestive heart failure exacerbation *What to do: At this time please wear CPAP at night. You will need to talk with your doctor if you feel that you need oxygen at night currently you do not need oxygen during the daytime. -limit your water intake to 2 L a day *Continue to take medications as directed Increase Lasix to 60 mg twice a day x 2 days ,1 in the morning and 1 in the afternoon at around 3:00 p.m.. Then Lasix 40 mg twice a day 1 in the morning and 1 in the afternoon at around 3:00 p.m.. *Follow up with your primary care provider in 2-3 days *Return to ER if you should have [such as] [or] any new, worsening or concerning symptoms Prescriptions: No Action pantoprazole tablet 40 mg PO QAM RF: 0 tolterodine [Detrol LA] 4 mg Capsule,Extended Release 24hr 4 mg PO Q24H RF: 0 Plavix tablet 75 mg PO QAM RF: 0 calcium carbonate 500 mg PO QAM RF: 0 metoprolol succinate 12.5 mg PO QAM RF: 0 Zoloft 100 mg PO QAM RF: 0 insulin glargine 100 unit/mL Cartridge 42 unit SUBCUT BEDTIME RF: 0 gabapentin 600 mg PO TID RF: 0 Mirapex 1 mg PO BEDTIME RF: 0 metformin 500 mg PO BID RF: 0 apixaban 5 mg PO BID RF: 0 insulin lispro 100 unit/mL Insulin Pen See Rx Instructions .ROUTE .COMPLEX RF: 0 furosemide [Lasix] 20 mg Tablet 40 mg PO QAM 30 Days Qty: 60 RF: 0 bicalutamide 50 mg tablet 50 mg PO DAILY RF: 0 trazodone 50 mg tablet 50 mg PO BEDTIME RF: 0 ibuprofen 400 mg tablet 400 mg PO PRN PRN (Reason: Pain, Mild) RF: 0 spironolactone 25 mg Tablet 25 mg PO DAILY Qty: 30 RF: 0 lisinopril 5 mg Tablet 2.5 mg PO DAILY Qty: 30 RF: 0 Referrals: Vandana Hart MD [Physician] -
[2020-10-27 09:42] VITALS: PULSE 77; RESP 24; O2SAT 100
[2020-10-27 10:53] LABS: Add Manual Diff / Slide Review NO; Basophils Absolute Auto 100 /uL (0-100); Basophils Percent Auto 0.7 % (0-2); Eosinophils Absolute Auto 200 /uL (0-450); Eosinophils Percent Auto 2.3 % (2-4); Hematocrit 32.3 % (41-53); Hemoglobin 10.3 g/dL (13.5-17.5); Lymphocytes Absolute Auto 1300 /uL (1100-4500); Mean Corpuscular HGB Conc 31.7 % (30-36); Mean Corpuscular Hemoglobin 22.4 PG (26-34); Mean Corpuscular Volume 70.6 fL (80-100); Monocytes Absolute Auto 600 /uL (0-900); Monocytes Percent Auto 6.4 % (3-14); Neutrophils Absolute Auto 7200 /uL (1500-7000); Neutrophils Percent Auto 76.6 % (50-75); Platelet Count 243 X10^3/uL (150-400); Red Blood Cell Count 4.57 X10^6/uL (4.5-5.9); White Blood Cell Count 9.4 X10^3/uL (4.5-11.0)
[2020-10-27 11:03] LABS: Alanine Aminotransferase 17 IU/L (<50); Albumin 4.4 g/dL (3.5-5.0); Albumin Globulin Ratio 1.6 (1.0-2.8); Alkaline Phosphatase 79 U/L (38-126); Aspartate Aminotransferase 22 IU/L (17-59); BUN Creatinine Ratio 20.8 (6-22); Bilirubin Total 0.3 mg/dL (0.2-1.3); Blood Urea Nitrogen 25 mg/dL (9-20); Calcium 9.3 mg/dL (8.4-10.2); Carbon Dioxide 24 mmol/L (22-32); Chloride 104 mmol/L (98-107); Creatine Kinase 35 U/L (55-170); Estimated Glomerular Filt Rate 59.5 mL/min (>60); Globulin 2.8 g/dL (1.7-4.1); Glucose 182 mg/dL (80-110); HEMOLYSIS < 15 (0-50); Potassium 3.9 mmol/L (3.4-5.1); Sodium 139 mmol/L (137-145); Total Protein 7.2 g/dL (6.3-8.2)
[2020-10-27 11:12] LABS: NT-proBNP (BNP-Adult 18+) 3700 pg/mL (<125)
[2020-10-27 11:15] LABS: Troponin I 0.015 ng/mL (0.01-0.034)
[2020-10-27 12:45] VITALS: BP 129/69; PULSE 84; RESP 22; TEMP 36.9; O2SAT 98
[2020-10-27 12:48] VITALS: PULSE 83; O2SAT 77
[2020-10-27] MEDS: FUROSEMIDE 40 MG TABLET PO (13:14)
--- NOTE | 2020-10-27 14:09 | PC.NURSE ---
Pt ambulates with walker. Portable pulse oximeter reads 89% while ambulating. SPO@ rises rapidly to 95 % upon return to room, while standing beside bed.
[2020-10-27 14:13] VITALS: BP 125/63; PULSE 76; RESP 20; O2SAT 98
--- NOTE | 2020-10-27 14:59 | P.CONS_ITS ---
History of Present Illness Consult details Date Patient Seen: 10/27/20 Time Patient Seen: 14:59 Chief complaint: CHF Reason for consult: acute on chronic CHF Requesting provider: Sepideh Gutiérrez Narrative: Mr. Álvarez is a 70M with PMH CHFrEF(20-25%), CAD, s/p AVR, s/p PPM, DM on insulin, GERD, depression, prostate CA, restless leg who presented to the emergency room with worsening shortness of breath starting this morning. Patient has been having difficulty walking with complaints of shortness of breath for quite some time. He has had 2 recent admissions for acute on chronic systolic heart failure in September and October. He denies any chest pain, palpitations, abdominal pain, nausea, or vomiting. He has chronic edema which is fairly stable today. He does endorse drinking quite a bit of fluids, upwards of probably 120 oz over the course of the day. In the emergency room, the patient's vital signs were unremarkable, except for desaturations into the 70s during ambulation. There was difficulty in establishing an IV so the patient was given 40 mg of oral Lasix, he had taken a dose earlier this morning as well. Medicine was asked to evaluate the patient for possible admission. Upon evaluation in the emergency room, the patient was able to ambulate with some shortness of breath but after ambulation his oxygen saturation was 90% on room air. He had started to improve and was urinating after the dose of oral Lasix. Patient wanted to return home in an attempt to manage this mild decompensation of his heart failure at home. Given improvement with 1 dose of oral Lasix, this approach seems reasonable. Meds Home Medications and Allergies Home Medications Medication Instructions Recorded Confirmed Type Mirapex 1 mg PO BEDTIME 09/29/20 10/23/20 History Plavix 75 mg PO QAM 09/29/20 10/23/20 History Zoloft 100 mg PO QAM 09/29/20 10/23/20 History apixaban 5 mg PO BID 09/29/20 10/23/20 History calcium carbonate 500 mg PO QAM 09/29/20 10/23/20 History gabapentin 600 mg PO TID 09/29/20 10/23/20 History insulin glargine 42 unit SUBCUT BEDTIME 09/29/20 10/23/20 History insulin lispro See Rx Instructions .ROUTE .COMPLEX 09/29/20 10/23/20 History metformin 500 mg PO BID 09/29/20 10/23/20 History metoprolol succinate 12.5 mg PO QAM 09/29/20 10/23/20 History pantoprazole 40 mg PO QAM 09/29/20 10/23/20 History tolterodine [Detrol LA] 4 mg PO Q24H 09/29/20 10/23/20 History furosemide [Lasix] 40 mg PO QAM 30 Days #60 tab 09/30/20 10/23/20 Rx bicalutamide 50 mg PO DAILY 10/23/20 10/23/20 History ibuprofen 400 mg PO PRN PRN 10/23/20 10/23/20 History trazodone 50 mg PO BEDTIME 10/23/20 10/23/20 History lisinopril 2.5 mg PO DAILY #30 tab 10/25/20 Rx spironolactone 25 mg PO DAILY #30 tab 10/25/20 Rx Allergies Allergy/AdvReac Type Severity Reaction Status Date / Time carbidopa Allergy Verified 10/23/20 09:54 crab Allergy Verified 10/23/20 09:54 morphine Allergy Verified 10/23/20 09:54 Review of Systems Review of Systems Narrative: All other systems reviewed with the patient and are negative unless otherwise stated. Exam Vital Signs (past 8 hours): - 10/27/20 09:42 10/27/20 12:45 10/27/20 12:48 Temperature 98.5 F Pulse Rate 77 84 83 Respiratory Rate 24 22 Blood Pressure 129/69 Pulse Oximetry 100 98 77 L 10/27/20 14:13 Temperature Pulse Rate 76 Respiratory Rate 20 Blood Pressure 125/63 Pulse Oximetry 98 Oxygen Delivery Method Room Air Narrative Exam Narrative: GENERAL APPEARANCE: Well developed, well nourished, in no acute distress. SKIN: Inspection of the skin reveals no rashes, ulcerations or petechiae. HEENT: Normocephalic atraumatic, extraocular muscles are intact, oropharynx is clear and mucous membranes are moist, neck is supple without adenopathy NECK: Supple and symmetric. There was no thyroid enlargement, and no tenderness, or masses were felt. No JVD. CHEST: Normal AP diameter and normal contour without any kyphoscoliosis. LUNGS: Auscultation of the lungs revealed bibasilar crackles without wheezing. CARDIOVASCULAR: There was a regular rate and rhythm without any murmurs, gallops, rubs. Peripheral pulses were 2+ and symmetric. ABDOMEN: Soft and nontender with normal bowel sounds. No ascites was noted. MUSCULOSKELETAL: There was no tenderness or effusions noted. Muscle strength and tone were normal. EXTREMITIES: No cyanosis, clubbing. Trace to 1+ edema bilateral lower extremities. NEUROLOGIC: Alert and oriented x 3. Normal affect. Ambulates with walker without assistance. Strength is +5/5 in the Upper Extremities and Lower Extremities Bilaterally. Sensation to touch was normal. Objective ECG Impression: Ventricularly paced rhythm. Imaging Chest x-ray: My impression: Cardiomegaly, improved interstitial predominance compared to prior examinations. Radiologist's impression: PROCEDURE: XR CHEST 1V INDICATIONS: Short of breath TECHNIQUE: One view of the chest was acquired. COMPARISON: [facility], CR, XR CHEST 1 VIEW, 07/27/2020, 18:06. [facility], CR, XR CHEST 1V, 09/29/2020, 6:29. [facility], CR, XR CHEST 1V, 10/23/2020, 9:50. FINDINGS: Surgical changes and devices: A pacer device is seen. The leads are seen in stable positions. A percutaneously placed aortic valve replacement can be seen. Lungs and pleura: No pleural effusions or pneumothorax. Mild interstitial prominence is seen throughout, which is improved compared to the 10/23/2020 examination. Mediastinum: Mediastinal contours appear normal. Heart size is moderately enlarged. Bones and chest wall: No suspicious bony lesions. Age-appropriate bony degenerative changes are seen. Overlying soft tissues appear unremarkable. IMPRESSION: Cardiomegaly and interstitial prominence. The interstitial prominence is improved compared to the prior examination. These imaging findings are attributed to improving CHF. Labs Result Diagrams: 10/27/20 10:40 10/27/20 10:40 Labs: Laboratory Results - last 24 hr 10/27/20 10/27/20 10/27/20 10:40 10:40 10:40 WBC 9.4 RBC 4.57 Hgb 10.3 L Hct 32.3 L MCV 70.6 L MCH 22.4 L MCHC 31.7 RDW 18.0 H Plt Count 243 Neut % (Auto) 76.6 H Lymph % (Auto) 14.0 L [place] % (Auto) 6.4 Eos % (Auto) 2.3 Baso % (Auto) 0.7 Neut # (Auto) 7200 H Lymph # (Auto) 1300 [place] # (Auto) 600 Eos # (Auto) 200 Baso # (Auto) 100 Sodium 139 Potassium 3.9 Chloride 104 Carbon Dioxide 24 BUN 25 H Creatinine 1.20 Estimated GFR 59.5 L BUN/Creatinine Ratio 20.8 Glucose 182 H Calcium 9.3 Total Bilirubin 0.3 AST 22 ALT 17 Alkaline Phosphatase 79 Total Creatine Kinase 35 L CK-MB (CK-2) TNP CK-MB (CK-2) Rel Index TNP Troponin I 0.015 NT-Pro-B Natriuret Pep 3700 H Total Protein 7.2 Albumin 4.4 Globulin 2.8 Albumin/Globulin Ratio 1.6 Assessment & Plan Assessment & Plan narrative: Mr. Álvarez is a 70M with PMH CHFrEF(20-25%), CAD, s/p AVR, s/p PPM, DM on insulin, GERD, depression, prostate CA, restless legs who presented to the emergency room with worsening shortness of breath starting this morning. Given improvement with a single dose of oral Lasix and his oxyg enation in the emergency room, it is reasonable to attempt outpatient management of this volume overload. Recommend increasing his furosemide to 60 mg twice a day for 2 days, followed by 40 mg twice a day afterwards and follow up with PCP and cardiology to establish a new euvolemic weight. He can take his Lasix in the morning and 1 his main complaints was regarding sleep which should be helped by diuresis as well as avoiding late evening dosing. Recommend 0800 and 1600 dosing. He also endorses drinking quite a bit of fluid, recommend at the least a 2 L fluid restriction at his assisted living facility. Also recommend daily weights at similar times during the day to monitor for fluid overload. Diagnoses: 1. Acute on chronic systolic heart failure. 2. Type 2 diabetes, stable 3. Coronary artery disease, stable 4. Status post aortic valve, stable - stable 5. Status post permanent pacemaker placed 6. Hypertension 7. Depression 8. Restless legs Patient reports he is DNR DNI His daughter Arlet Bueno is his durable power of civil litigation attorney
== END 2020-10-27 15:21 | disposition home or self-care (01) ==
PROVIDERS: Emergency Provider Emergency Medicine
DX: I50.23 Acute on chronic systolic (congestive) heart failure (principal); R06.02 Shortness of breath
CPT/HCPCS: 36415; 71045; 80053; 81003; 82550; 83880; 84484; 85025; 93005; 94640; 99284

== ENCOUNTER → 2020-10-29 07:59 | Outpatient (ROUT) | payer MEDICARE, MEDICAID, SELFPAY ==
[2020-10-23 13:01] VITALS: BMI 38.4
[2020-10-29 08:52] LABS: BUN Creatinine Ratio 18.9 (6-22); Blood Urea Nitrogen 24 mg/dL (9-20); Calcium 8.8 mg/dL (8.4-10.2); Carbon Dioxide 28 mmol/L (22-32); Chloride 104 mmol/L (98-107); Estimated Glomerular Filt Rate 55.7 mL/min (>60); Glucose 133 mg/dL (80-110); HEMOLYSIS < 15 (0-50); Potassium 3.6 mmol/L (3.4-5.1); Sodium 141 mmol/L (137-145)
== END ==
PROVIDERS: Visit Provider Nurse Practitioner Gerontology
DX: N18.9 Chronic kidney disease, unspecified (principal)
CPT/HCPCS: 36415; 80048

== ENCOUNTER → 2020-11-05 08:30 | Outpatient (ROUT) | payer MEDICARE, MEDICAID, SELFPAY ==
[2020-10-23 13:01] VITALS: BMI 38.4
[2020-11-05 09:19] LABS: BUN Creatinine Ratio 20.5 (6-22); Blood Urea Nitrogen 26 mg/dL (9-20); Calcium 9.5 mg/dL (8.4-10.2); Carbon Dioxide 27 mmol/L (22-32); Chloride 104 mmol/L (98-107); Estimated Glomerular Filt Rate 55.7 mL/min (>60); Glucose 122 mg/dL (80-110); HEMOLYSIS < 15 (0-50); Potassium 3.8 mmol/L (3.4-5.1); Sodium 141 mmol/L (137-145)
[2020-11-05 09:27] LABS: NT-proBNP (BNP-Adult 18+) 1790 pg/mL (<125)
== END ==
PROVIDERS: Visit Provider Nurse Practitioner Gerontology
DX: N18.9 Chronic kidney disease, unspecified (principal); I50.9 Heart failure, unspecified; R05 Cough; R06.02 Shortness of breath
CPT/HCPCS: 36415; 80048; 83880

== ENCOUNTER → 2020-11-19 08:14 | Outpatient (ROUT) | payer MEDICARE, MEDICAID, SELFPAY ==
[2020-10-23 13:01] VITALS: BMI 38.4
[2020-11-19 08:53] LABS: BUN Creatinine Ratio 18.5 (6-22); Blood Urea Nitrogen 24 mg/dL (9-20); Calcium 9.5 mg/dL (8.4-10.2); Carbon Dioxide 28 mmol/L (22-32); Chloride 100 mmol/L (98-107); Estimated Glomerular Filt Rate 54.3 mL/min (>60); Glucose 138 mg/dL (80-110); HEMOLYSIS < 15 (0-50); Potassium 4.1 mmol/L (3.4-5.1); Sodium 137 mmol/L (137-145)
== END ==
PROVIDERS: Visit Provider Nurse Practitioner Gerontology
DX: N18.9 Chronic kidney disease, unspecified (principal); I50.9 Heart failure, unspecified
CPT/HCPCS: 36415; 80048

== ENCOUNTER 2020-11-25 10:17 | Emergency (ER) | payer MEDICARE, MEDICAID, SELFPAY ==
[2020-10-23 13:01] VITALS: BMI 38.4
[2020-11-25] VITALS (9 sets, daily range): BP systolic 114–137; BP diastolic 62–76; PULSE 66–81; RESP 20; TEMP 36.5; O2SAT 92–97; BMI 35.7
--- NOTE | 2020-11-25 10:27 | DI.RAD.S_ITS ---
PROCEDURE: XR CHEST 1V INDICATIONS: weakness TECHNIQUE: One view of the chest was acquired. COMPARISON: [facility], CT, CT ABDOMEN PELVIS WITH CONTRAST, 12/20/2019, 13:30. [facility], CR, XR CHEST 1V, 10/27/2020, 9:17. [facility], CR, XR CHEST 1V, 10/23/2020, 9:50. FINDINGS: Surgical changes and devices: Left pacemaker with right atrial and right ventricular leads. TAVR stent. Lungs and pleura: Lungs are clear. No pleural effusions or pneumothorax. Mediastinum: Mediastinal contours appear normal. Heart size is prominent. Bones and chest wall: No suspicious bony lesions. Overlying soft tissues appear unremarkable. IMPRESSION: Heart size is prominent. Similar prominent pulmonary markings. This could be due to pulmonary vasculature engorgement, scarring or atelectasis. Dictated by: Stephen Christianson M.D. on 11/25/2020 at 10:45 Approved by: Stephen Christianson M.D. on 11/25/2020 at 10:48
--- NOTE | 2020-11-25 10:30 | DI.CT.S_ITS ---
PROCEDURE: CT HEAD/BRAIN WO CON INDICATIONS: weakness TECHNIQUE: Noncontrast 4.5 mm thick angled axial sections acquired from the foramen magnum to the vertex, with coronal and sagittal reformats. For radiation dose reduction, the following was used: automated exposure control, adjustment of mA and/or kV according to patient size. COMPARISON: [facility], CT, CT HEAD WITHOUT CONTRAST, 07/27/2020, 19:23. FINDINGS: Image quality: Good. CSF spaces: Basal cisterns are patent. No extra-axial fluid collections. Ventricles are normal in size and shape. Brain: No midline shift. No intracranial masses or hemorrhage. Stable small hypodense focus in the region of the left basal ganglia. No area of hypodensity in a large vascular distribution to suggest acute infarction. Periventricular hypodensity consistent with chronic microvascular ischemic change. Age-related parenchymal loss. Skull and face: Calvarium and visualized facial bones are intact, without suspicious lesions. Sinuses: Mucosal thickening or retention cyst in the left maxillary sinus. Mastoids are clear. IMPRESSION: No acute intracranial abnormality. Chronic microvascular ischemic disease. Stable prior left basal ganglia lacunar infarct. Dictated by: Stephen Christianson M.D. on 11/25/2020 at 10:41 Approved by: Stephen Christianson M.D. on 11/25/2020 at 10:45
[2020-11-25 10:35] LABS: Bacteria Urine None Seen; RBC Urine None Seen (0-5/HPF); WBC Urine None Seen (0-5/HPF)
[2020-11-25 10:38] LABS: Appearance Urine UA CLEAR; Bilirubin Urine UA NEGATIVE (NEGATIVE); Color Urine UA YELLOW; Glucose Urine UA TRACE g/dL (Negative); Ketones Urine UA NEGATIVE (NEGATIVE); Leukocyte Esterase Urine UA NEGATIVE (NEGATIVE); Nitrite Urine UA NEGATIVE (Negative); Occult Blood Urine UA NEGATIVE (Negative); Protein Urine UA NEGATIVE (Negative); Urobilinogen Urine UA 0.2 E.U./dL (0.2)
[2020-11-25 10:41] LABS: Culture Indicated Urine Cult Not Indicated; Urine Comments Microscopic Normal
[2020-11-25 10:41] LABS: Add Manual Diff / Slide Review NO; Basophils Absolute Auto 100 /uL (0-100); Basophils Percent Auto 1.2 % (0-2); Eosinophils Absolute Auto 300 /uL (0-450); Eosinophils Percent Auto 2.5 % (2-4); Hematocrit 33.4 % (41-53); Hemoglobin 10.7 g/dL (13.5-17.5); Lymphocytes Absolute Auto 1400 /uL (1100-4500); Lymphocytes Percent Auto 13.1 % (25-40); Mean Corpuscular HGB Conc 31.9 % (30-36); Mean Corpuscular Volume 68.9 fL (80-100); Monocytes Absolute Auto 600 /uL (0-900); Monocytes Percent Auto 5.8 % (3-14); Neutrophils Absolute Auto 8200 /uL (1500-7000); Neutrophils Percent Auto 77.4 % (50-75); Platelet Count 257 X10^3/uL (150-400); Red Blood Cell Count 4.85 X10^6/uL (4.5-5.9); Red Cell Distribution Width 18.3 % (11.6-14.8); White Blood Cell Count 10.6 X10^3/uL (4.5-11.0)
[2020-11-25 10:44] LABS: Alanine Aminotransferase 18 IU/L (<50); Albumin 4.4 g/dL (3.5-5.0); Albumin Globulin Ratio 1.4 (1.0-2.8); Alkaline Phosphatase 81 U/L (38-126); Aspartate Aminotransferase 33 IU/L (17-59); BUN Creatinine Ratio 25.9 (6-22); Bilirubin Total 0.4 mg/dL (0.2-1.3); Blood Urea Nitrogen 30 mg/dL (9-20); Calcium 9.3 mg/dL (8.4-10.2); Carbon Dioxide 26 mmol/L (22-32); Chloride 98 mmol/L (98-107); Creatine Kinase 34 U/L (55-170); Estimated Glomerular Filt Rate > 60.0 mL/min (>60); Globulin 3.2 g/dL (1.7-4.1); Glucose 304 mg/dL (80-110); HEMOLYSIS 77 (0-50); Lactate (Lactic Acid) 2.4 mmol/L (0.7-2.1); Potassium 5.2 mmol/L (3.4-5.1); Sodium 133 mmol/L (137-145); Total Protein 7.6 g/dL (6.3-8.2)
[2020-11-25 10:55] LABS: Troponin I < 0.012 ng/mL (0.01-0.034)
[2020-11-25 11:00] LABS: Procalcitonin 0.11 ng/mL (<0.5)
--- NOTE | 2020-11-25 11:03 | ED_ITS ---
HPI - Weakness General Chief complaint: Weakness Stated complaint: weakness Time Seen by Provider: 11/25/20 10:25 Source: patient, EMS and old records reviewed Limitations: no limitations History of Present Illness HPI Narrative: 70-year-old male with past medical history of CHF, coronary artery disease, insulin-dependent diabetes presenting today with generalized weakness. His he is unable to ambulate due to weakness he is shaking in all extremities currently afebrile. He complains of being nauseated for the last 3 days but no vomiting says that he wants to vomit but is unable to. He has no abdominal pain no chest pain or shortness of breath. MD Complaint: generalized weakness Duration: constant Location: generalized Related Data Home Medications Medication Instructions Recorded Confirmed Mirapex 1 mg PO BEDTIME 09/29/20 10/23/20 Plavix 75 mg PO QAM 09/29/20 10/23/20 Zoloft 100 mg PO QAM 09/29/20 10/23/20 apixaban 5 mg PO BID 09/29/20 10/23/20 calcium carbonate 500 mg PO QAM 09/29/20 10/23/20 gabapentin 600 mg PO TID 09/29/20 10/23/20 insulin glargine 42 unit SUBCUT BEDTIME 09/29/20 10/23/20 insulin lispro See Rx Instructions .ROUTE .COMPLEX 09/29/20 10/23/20 metformin 500 mg PO BID 09/29/20 10/23/20 metoprolol succinate 12.5 mg PO QAM 09/29/20 10/23/20 pantoprazole 40 mg PO QAM 09/29/20 10/23/20 tolterodine [Detrol LA] 4 mg PO Q24H 09/29/20 10/23/20 bicalutamide 50 mg PO DAILY 10/23/20 10/23/20 ibuprofen 400 mg PO PRN PRN 10/23/20 10/23/20 trazodone 50 mg PO BEDTIME 10/23/20 10/23/20 Previous Rx's Medication Instructions Recorded furosemide [Lasix] 40 mg PO QAM 30 Days #60 tab 09/30/20 lisinopril 2.5 mg PO DAILY #30 tab 10/25/20 spironolactone 25 mg PO DAILY #30 tab 10/25/20 Allergies Allergy/AdvReac Type Severity Reaction Status Date / Time carbidopa Allergy Verified 10/23/20 09:54 crab Allergy Verified 10/23/20 09:54 morphine Allergy Verified 10/23/20 09:54 Review of Systems Review of Systems ROS Unobtainable: All systems reviewed & are unremarkable except as noted in HPI and below Constitutional Constitutional: Reports chills, Denies fever(s), Denies lethargy and Reports weakness Eyes Eyes: Denies change in vision, Denies eye discharge, Denies irritation and Denies loss of vision Cardiovascular Cardiovascular: Denies chest pain, Denies edema, Denies irregular heart rhythm and Denies dyspnea on exertion Respiratory Respiratory: Denies cough and Denies dyspnea on exertion Gastrointestinal Gastrointestinal: Denies abdominal pain, Reports nausea and Denies vomiting Musculoskeletal Musculoskeletal: Denies arthralgias and Denies back pain Integumentary/Breasts Skin/Breast: Denies pruritus, Denies erythema, Denies rash and Denies wounds Neurologic Neurologic: Denies loss of vision and Reports weakness Patient History Medical History Congestive heart failure Diabetes GERD (gastroesophageal reflux disease) Pacemaker Surgical History H/O aortic valve replacement History of back surgery Family History Mother Coronary artery disease involving bypass graft of transplanted heart Cancer Social History household members: none Smoking Status: Former smoker Smoking Status: Former smoker alcohol intake frequency: holidays/special occasions only Substance Use Type: former substance user Exam Initial Vital Signs Initial Vital Signs: Vital Signs Pulse Rate 81 11/25/20 10:18 Pulse Oximetry 97 11/25/20 10:18 GENERAL: Alert pleasant well-appearing 70-year-old HEENT: Head atraumatic,EOMI, pupils reactive, face symmetric, moist mucous membranes CARDIOVASCULAR: Regular rate and rhythm without murmurs, rubs or gallops. RESPIRATORY: Breath sounds equal bilaterally, no wheezes rales or rhonchi. ABDOMEN: Soft, nontender. Normoactive bowel sounds all 4 quadrants. No guarding or rebound. EXTREMITIES: Normal range of motion, no clubbing or edema. Neurovascularly intact NEUROLOGICAL: Alert and oriented x4.Normal gait and speech. Cranial nerves II through XII grossly intact. Good [id number], good [id number], strength equal bilaterally, no dysarthria or aphasia, sensation in tact to soft touch bilaterally, no visual changes, no facial droop shaking is noted in all extremities SKIN: Warm, dry, no laceration, no petechiae, no rashes or lesions. Course Orders Ordered: ED Orders 11/25/20 10:20 Complete Blood Count AUTO DIFF Stat Comprehensive Metabolic Panel Stat Lactate (Lactic Acid) Stat Procalcitonin Stat Troponin & CK Cardiac Panel Stat 11/25/20 10:27 XR chest 1V Stat 11/25/20 10:28 Urinalysis and Microscopic Stat EKG-12 Lead Stat 11/25/20 10:30 CT head/brain wo con Stat 11/25/20 10:50 Blood Culture Stat 11/25/20 11:33 NT-proBNP (BNP-Adult 18+) Stat 11/25/20 11:48 CT abdomen pelvis w con Stat Discontinued Medications Ondansetron HCl (Ondansetron 4 Mg/2 Ml Inj) 4 mg IV NOW ONE Stop: 11/25/20 10:29 Last Admin: 11/25/20 11:07 Dose: 4 mg Documented by: YI Vital Signs Vital signs: Vital Signs - 8 hr 11/25/20 10:18 11/25/20 10:30 11/25/20 10:41 Temperature 97.7 F Pulse Rate 81 75 75 Respiratory Rate 20 Blood Pressure 132/71 114/69 Pulse Oximetry 97 93 96 11/25/20 11:00 11/25/20 11:30 11/25/20 11:49 Temperature Pulse Rate 70 66 73 Respiratory Rate Blood Pressure 121/62 118/62 123/76 Pulse Oximetry 94 92 95 11/25/20 12:00 11/25/20 12:30 11/25/20 12:57 Temperature Pulse Rate 66 67 78 Respiratory Rate Blood Pressure 127/64 127/64 118/64 Pulse Oximetry 92 94 95 MDM - Weakness Lab Data Attestation: I reviewed the patient's lab results. Result diagrams: 11/25/20 10:20 11/25/20 10:20 Labs: Lab Results 06/07/21 06/07/21 06/07/21 Range/Units 10:20 10:20 10:20 WBC 10.6 (4.5-11.0) X10^3/uL RBC 4.85 (4.5-5.9) X10^6/uL Hgb 10.7 L (13.5-17.5) g/dL Hct 33.4 L (41-53) % MCV 68.9 L (80-100) fL MCH 22.0 L (26-34) PG MCHC 31.9 (30-36) % RDW 18.3 H (11.6-14.8) % Plt Count 257 (150-400) X10^3/uL Neut % (Auto) 77.4 H (50-75) % Lymph % (Auto) 13.1 L (25-40) % [place] % (Auto) 5.8 (3-14) % Eos % (Auto) 2.5 (2-4) % Baso % (Auto) 1.2 (0-2) % Neut # (Auto) 8200 H (1117-0876) /uL Lymph # (Auto) 1400 (9135-1625) /uL [place] # (Auto) 600 (0-900) /uL Eos # (Auto) 300 (0-450) /uL Baso # (Auto) 100 (0-100) /uL RBC Morphology See below Anisocytosis 1+ H Microcytosis 1+ H Sodium 133 L (137-145) mmol/L Potassium 5.2 H (3.4-5.1) mmol/L Chloride 98 (98-107) mmol/L Carbon Dioxide 26 (22-32) mmol/L BUN 30 H (9-20) mg/dL Creatinine 1.16 (0.66-1.25) mg/dL Estimated GFR > 60.0 (>60) mL/min BUN/Creatinine Ratio 25.9 H (6-22) Glucose 304 H D (80-110) mg/dL Lactate 2.4 H (0.7-2.1) mmol/L Calcium 9.3 (8.4-10.2) mg/dL Total Bilirubin 0.4 (0.2-1.3) mg/dL AST 33 (17-59) IU/L ALT 18 (<50) IU/L Alkaline Phosphatase 81 (38-126) U/L Total Creatine Kinase 34 L (55-170) U/L CK-MB (CK-2) TNP CK-MB (CK-2) Rel Index TNP Troponin I < 0.012 (0.01-0.034) ng/mL NT-Pro-B Natriuret Pep (<125) pg/mL Total Protein 7.6 (6.3-8.2) g/dL Albumin 4.4 (3.5-5.0) g/dL Globulin 3.2 (1.7-4.1) g/dL Albumin/Globulin Ratio 1.4 (1.0-2.8) Procalcitonin 0.11 (<0.5) ng/mL Urine Color Urine Appearance Urine pH (4.5-8.0) Ur Specific [place] (1.000-1.035) Urine Protein (Negative) Urine Glucose (UA) (Negative) g/dL Urine Ketones (NEGATIVE) Urine Occult Blood (Negative) Urine Nitrate (Negative) Urine Bilirubin (NEGATIVE) Urine Urobilinogen (0.2) E.U./dL Ur Leukocyte Esterase (NEGATIVE) Urine RBC (0-5/HPF) Urine WBC (0-5/HPF) Urine Bacteria (None) Ur Culture Indicated? Micro UA Comment 11/25/20 11/25/20 Range/Units 10:28 11:33 WBC (4.5-11.0) X10^3/uL RBC (4.5-5.9) X10^6/uL Hgb (13.5-17.5) g/dL Hct (41-53) % MCV (80-100) fL MCH (26-34) PG MCHC (30-36) % RDW (11.6-14.8) % Plt Count (150-400) X10^3/uL Neut % (Auto) (50-75) % Lymph % (Auto) (25-40) % [place] % (Auto) (3-14) % Eos % (Auto) (2-4) % Baso % (Auto) (0-2) % Neut # (Auto) (2249-1327) /uL Lymph # (Auto) (8685-3046) /uL [place] # (Auto) (0-900) /uL Eos # (Auto) (0-450) /uL Baso # (Auto) (0-100) /uL RBC Morphology Anisocytosis Microcytosis Sodium (137-145) mmol/L Potassium (3.4-5.1) mmol/L Chloride (98-107) mmol/L Carbon Dioxide (22-32) mmol/L BUN (9-20) mg/dL Creatinine (0.66-1.25) mg/dL Estimated GFR (>60) mL/min BUN/Creatinine Ratio (6-22) Glucose (80-110) mg/dL Lactate (0.7-2.1) mmol/L Calcium (8.4-10.2) mg/dL Total Bilirubin (0.2-1.3) mg/dL AST (17-59) IU/L ALT (<50) IU/L Alkaline Phosphatase (38-126) U/L Total Creatine Kinase (55-170) U/L CK-MB (CK-2) CK-MB (CK-2) Rel Index Troponin I (0.01-0.034) ng/mL NT-Pro-B Natriuret Pep 1460 H (<125) pg/mL Total Protein (6.3-8.2) g/dL Albumin (3.5-5.0) g/dL Globulin (1.7-4.1) g/dL Albumin/Globulin Ratio (1.0-2.8) Procalcitonin (<0.5) ng/mL Urine Color Yellow Urine Appearance Clear Urine pH 6.0 (4.5-8.0) Ur Specific [place] 1.020 (1.000-1.035) Urine Protein Negative (Negative) Urine Glucose (UA) Trace H (Negative) g/dL Urine Ketones Negative (NEGATIVE) Urine Occult Blood Negative (Negative) Urine Nitrate Negative (Negative) Urine Bilirubin Negative (NEGATIVE) Urine Urobilinogen 0.2 (0.2) E.U./dL Ur Leukocyte Esterase Negative (NEGATIVE) Urine RBC None seen (0-5/HPF) Urine WBC None seen (0-5/HPF) Urine Bacteria None seen (None) Ur Culture Indicated? Cult not indicated Micro UA Comment Microscopic normal Imaging Data CT scan - head: Radiologist Impression: PROCEDURE: CT HEAD/BRAIN WO CON INDICATIONS: weakness TECHNIQUE: Noncontrast 4.5 mm thick angled axial sections acquired from the foramen magnum to the vertex, with coronal and sagittal reformats. For radiation dose reduction, the following was used: automated exposure control, adjustment of mA and/or kV according to patient size. COMPARISON: [facility], CT, CT HEAD WITHOUT CONTRAST, 07/27/2020, 19:23. FINDINGS: Image quality: Good. CSF spaces: Basal cisterns are patent. No extra-axial fluid collections. Ventricles are normal in size and shape. Brain: No midline shift. No intracranial masses or hemorrhage. Stable small hypodense focus in the region of the left basal ganglia. No area of hypodensity in a large vascular distribution to suggest acute infarction. Periventricular hypodensity consistent with chronic microvascular ischemic change. Age-related parenchymal loss. Skull and face: Calvarium and visualized facial bones are intact, without suspicious lesions. Sinuses: Mucosal thickening or retention cyst in the left maxillary sinus. Mastoids are clear. IMPRESSION: No acute intracranial abnormality. Chronic microvascular ischemic disease. Stable prior left basal ganglia lacunar infarct. Dictated by: Stephen Christianson M.D. on 11/25/2020 at 10:41 Approved by: Stephen Christianson M.D. on 11/25/2020 at 10:4 CT scan - abdomen/pelvis: Radiologist Impression: PROCEDURE: CT ABDOMEN PELVIS W CON INDICATIONS: persistant nausea with abdominal pain TECHNIQUE: After the administration of intravenous contrast, 5 mm thick sections acquired from the diaphragm to the symphysis. 5 mm coronal and sagittal reformats were acquired. For radiation dose reduction, the following was used: automated exposure control, adjustment of mA and/or kV according to patient size. COMPARISON: None. FINDINGS: Image quality: Excellent. ABDOMEN: Lung bases: The lung bases are clear. A mitral valve replacement is noted. Pacer wires are seen. Solid organs: Liver is normal in size and enhancement. Gallbladder is normal. Biliary system is non dilated. Pancreas enhances normally. Spleen is normal in size and enhancement. No adrenal nodules. Kidneys demonstrate normal size and enhancement, without hydronephrosis. Peritoneum and bowel: The distal esophagus, stomach, and small bowel are normal. The large bowel has diverticulosis without evidence of diverticulitis. The appendix is normal. Nodes and vessels: No retroperitoneal or mesenteric adenopathy by size criteria. Aorta and inferior vena cava are normal in size. The aorta has atherosclerotic calcifications. 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 Miscellaneous: No ventral hernias. PELVIS: Genitourinary: No bladder wall thickening or mass. Miscellaneous: No inguinal hernias or adenopathy. Bones: Degenerative disc disease at L5-S1 and L4-5. No vertebral body height loss. IMPRESSION: 1. No acute or significant abnormality of the abdomen or pelvis. 2. Diverticulosis without evidence of diverticulitis. Dictated by: Shady Jones M.D. on 11/25/2020 at 11:55 ECG Data Attestation: I personally reviewed and interpreted this ECG as follows: Prior ECG tracings: available for review Interpretation: Sinus rhythm rate 70 p.r. interval 226 QRS 174 QTC 561 similar to previous EKGs MDM Narrative Medical decision making narrative: Patient is overall feeling better he has no focal deficits he was feeling nauseated but is abdominal CT is negative. No signs of acute congestive heart failure he has no symptoms of that either. No oral sign of infection. He is ambulatory with a walker in the emergency department. At this time no need to stay in the hospital he would like to go home. Discharge Plan Departure Patient Disposition: Home Clinical Impression: Nausea Instructions: DI for Nausea -- Adult Activity Restrictions/Additional Instructions: *You have been diagnosed with nausea *What to do: At this time no sore some nausea found. Your overall feeling better blood work is reassuring potassium is found to be slightly high at 5.2 this may need to be rechecked, your Lasix should help with this *Continue to take medications as directed *Follow up with your primary care provider in 2-3 days *Return to ER if you should have increasing weakness confusion vomiting or any new, worsening or concerning symptoms Prescriptions: No Action pantoprazole tablet 40 mg PO QAM RF: 0 tolterodine [Detrol LA] 4 mg Capsule,Extended Release 24hr 4 mg PO Q24H RF: 0 Plavix tablet 75 mg PO QAM RF: 0 calcium carbonate 500 mg PO QAM RF: 0 metoprolol succinate 12.5 mg PO QAM RF: 0 Zoloft 100 mg PO QAM RF: 0 insulin glargine 100 unit/mL Cartridge 42 unit SUBCUT BEDTIME RF: 0 gabapentin 600 mg PO TID RF: 0 Mirapex 1 mg PO BEDTIME RF: 0 metformin 500 mg PO BID RF: 0 apixaban 5 mg PO BID RF: 0 insulin lispro 100 unit/mL Insulin Pen See Rx Instructions .ROUTE .COMPLEX RF: 0 furosemide [Lasix] 20 mg Tablet 40 mg PO QAM 30 Days Qty: 60 RF: 0 bicalutamide 50 mg tablet 50 mg PO DAILY RF: 0 trazodone 50 mg tablet 50 mg PO BEDTIME RF: 0 ibuprofen 400 mg tablet 400 mg PO PRN PRN (Reason: Pain, Mild) RF: 0 spironolactone 25 mg Tablet 25 mg PO DAILY Qty: 30 RF: 0 lisinopril 5 mg Tablet 2.5 mg PO DAILY Qty: 30 RF: 0 Referrals: Vandana Hart MD [Physician] -
[2020-11-25] MEDS: ONDANSETRON 4 MG/2 ML INJ IV (11:07)
[2020-11-25 11:15] LABS: Anisocytosis 1+; Microcytosis 1+
--- NOTE | 2020-11-25 11:48 | DI.CT.S_ITS ---
PROCEDURE: CT ABDOMEN PELVIS W CON INDICATIONS: persistant nausea with abdominal pain TECHNIQUE: After the administration of intravenous contrast, 5 mm thick sections acquired from the diaphragm to the symphysis. 5 mm coronal and sagittal reformats were acquired. For radiation dose reduction, the following was used: automated exposure control, adjustment of mA and/or kV according to patient size. COMPARISON: None. FINDINGS: Image quality: Excellent. ABDOMEN: Lung bases: The lung bases are clear. A mitral valve replacement is noted. Pacer wires are seen. Solid organs: Liver is normal in size and enhancement. Gallbladder is normal. Biliary system is non dilated. Pancreas enhances normally. Spleen is normal in size and enhancement. No adrenal nodules. Kidneys demonstrate normal size and enhancement, without hydronephrosis. Peritoneum and bowel: The distal esophagus, stomach, and small bowel are normal. The large bowel has diverticulosis without evidence of diverticulitis. The appendix is normal. Nodes and vessels: No retroperitoneal or mesenteric adenopathy by size criteria. Aorta and inferior vena cava are normal in size. The aorta has atherosclerotic calcifications. 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 Miscellaneous: No ventral hernias. PELVIS: Genitourinary: No bladder wall thickening or mass. Miscellaneous: No inguinal hernias or adenopathy. Bones: Degenerative disc disease at L5-S1 and L4-5. No vertebral body height loss. IMPRESSION: 1. No acute or significant abnormality of the abdomen or pelvis. 2. Diverticulosis without evidence of diverticulitis. Dictated by: Shady Jones M.D. on 11/25/2020 at 11:55 Approved by: Shady Jones M.D. on 11/25/2020 at 12:01
[2020-11-25 11:49] LABS: NT-proBNP (BNP-Adult 18+) 1460 pg/mL (<125)
[2020-11-25 12:33] LABS: Reflexed Lactate in 2 Hours Y
== END 2020-11-25 13:21 | disposition home or self-care (01) ==
PROVIDERS: Emergency Provider Emergency Medicine
DX: R11.0 Nausea (principal); R10.9 Unspecified abdominal pain; R53.1 Weakness
CPT/HCPCS: 36415; 70450; 71045; 74177; 80053; 81001; 82550; 83605; 83880; 84145; 84484; 85025; 87040; 93005; 96374; 99284; J2405; Q9967

== ENCOUNTER → 2020-12-03 07:50 | Outpatient (ROUT) | payer MEDICARE, MEDICAID, SELFPAY ==
[2020-10-23 13:01] VITALS: BMI 38.4
[2020-12-03 08:58] LABS: BUN Creatinine Ratio 18.5 (6-22); Blood Urea Nitrogen 25 mg/dL (9-20); Calcium 9.3 mg/dL (8.4-10.2); Carbon Dioxide 29 mmol/L (22-32); Chloride 96 mmol/L (98-107); Glucose 133 mg/dL (80-110); HEMOLYSIS < 15 (0-50); Sodium 136 mmol/L (137-145)
== END ==
PROVIDERS: Visit Provider Nurse Practitioner Family
DX: N18.9 Chronic kidney disease, unspecified (principal); I50.9 Heart failure, unspecified
CPT/HCPCS: 36415; 80048

== ENCOUNTER → 2020-12-18 10:55 | Outpatient (ROUT) | payer MEDICARE, MEDICAID, SELFPAY ==
[2020-10-23 13:01] VITALS: BMI 38.4
[2020-12-18 11:38] LABS: BUN Creatinine Ratio 19.8 (6-22); Blood Urea Nitrogen 24 mg/dL (9-20); Calcium 9.5 mg/dL (8.4-10.2); Carbon Dioxide 28 mmol/L (22-32); Chloride 99 mmol/L (98-107); Estimated Glomerular Filt Rate 58.9 mL/min (>60); Glucose 194 mg/dL (80-110); HEMOLYSIS < 15 (0-50); Potassium 4.5 mmol/L (3.4-5.1); Sodium 136 mmol/L (137-145)
[2020-12-26 10:57] LABS: COVID19 - ADMIT (NP swab/PCR) Negative (Negative)
== END ==
PROVIDERS: Visit Provider Internal Medicine
DX: E87.8 Other disorders of electrolyte and fluid balance, not elsewhere classified (principal)
CPT/HCPCS: 80048; U0003

== ENCOUNTER → 2020-12-28 12:04 | Outpatient (ROUT) | payer MEDICARE, MEDICAID, SELFPAY ==
[2020-10-23 13:01] VITALS: BMI 38.4
[2020-12-28 13:03] LABS: COVID-19 CEPHEID PCR (VTM/NP) Negative (Negative)
== END ==
PROVIDERS: Visit Provider Internal Medicine
DX: Z01.812 Encounter for preprocedural laboratory examination (principal)
CPT/HCPCS: U0003

== ENCOUNTER → 2021-01-21 08:26 | Outpatient (ROUT) | payer MEDICARE, MEDICAID, SELFPAY ==
[2020-10-23 13:01] VITALS: BMI 38.4
[2021-01-21 09:12] LABS: BUN Creatinine Ratio 21.9 (6-22); Blood Urea Nitrogen 23 mg/dL (9-20); Calcium 9.3 mg/dL (8.4-10.2); Carbon Dioxide 28 mmol/L (22-32); Chloride 101 mmol/L (98-107); Estimated Glomerular Filt Rate > 60.0 mL/min (>60); Glucose 184 mg/dL (80-110); HEMOLYSIS < 15 (0-50); Sodium 137 mmol/L (137-145)
[2021-01-21 09:13] LABS: Hemoglobin A1C% w Est Avg Glu 7.7 % (4.0-6.0)
== END ==
PROVIDERS: Visit Provider Internal Medicine
DX: E11.9 Type 2 diabetes mellitus without complications (principal)
CPT/HCPCS: 36415; 80048; 83036

== ENCOUNTER → 2021-02-25 08:04 | Outpatient (ROUT) | payer MEDICARE, MEDICAID, SELFPAY ==
[2020-10-23 13:01] VITALS: BMI 38.4
[2021-02-25 08:49] LABS: BUN Creatinine Ratio 19.5 (6-22); Blood Urea Nitrogen 25 mg/dL (9-20); Carbon Dioxide 30 mmol/L (22-32); Chloride 99 mmol/L (98-107); Estimated Glomerular Filt Rate 55.2 mL/min (>60); Glucose 162 mg/dL (80-110); HEMOLYSIS < 15 (0-50); Potassium 3.8 mmol/L (3.4-5.1); Sodium 137 mmol/L (137-145)
[2021-02-25 09:49] LABS: Magnesium 2.1 mg/dL (1.6-2.3)
== END ==
PROVIDERS: Visit Provider Nurse Practitioner Gerontology
DX: R25.2 Cramp and spasm (principal); N18.9 Chronic kidney disease, unspecified; I50.9 Heart failure, unspecified
CPT/HCPCS: 36415; 80048; 83735

== ENCOUNTER → 2021-03-04 08:01 | Outpatient (ROUT) | payer MEDICARE, MEDICAID, SELFPAY ==
[2020-10-23 13:01] VITALS: BMI 38.4
[2021-03-04 09:20] LABS: HEMOLYSIS < 15 (0-50); Iron 30 ug/dL (49-181)
[2021-03-04 09:32] LABS: Percent Iron Saturation 8 % (20-50); Total Iron Binding Capacity 388 ug/dL (261-462); Transferrin 311 mg/dL (206-381)
[2021-03-04 09:48] LABS: Thyroid Stimulating Hormone 1.92 uIU/mL (0.47-4.68)
[2021-03-04 09:49] LABS: Ferritin 27 ng/mL (18-464)
[2021-03-05 08:53] LABS: Parathyroid Hormone Int 60 pg/mL (15-65)
== END ==
PROVIDERS: Visit Provider Nurse Practitioner Gerontology
DX: R25.2 Cramp and spasm (principal)
CPT/HCPCS: 36415; 82728; 83540; 83550; 83970; 84443

== ENCOUNTER → 2021-03-25 08:13 | Outpatient (ROUT) | payer MEDICARE, MEDICAID, SELFPAY ==
[2020-10-23 13:01] VITALS: BMI 38.4
[2021-03-25 09:36] LABS: BUN Creatinine Ratio 18.5 (6-22); Blood Urea Nitrogen 22 mg/dL (9-20); Calcium 9.2 mg/dL (8.4-10.2); Carbon Dioxide 31 mmol/L (22-32); Chloride 96 mmol/L (98-107); Estimated Glomerular Filt Rate 59.9 mL/min (>60); Glucose 148 mg/dL (80-110); HEMOLYSIS < 15 (0-50); Sodium 137 mmol/L (137-145)
== END ==
PROVIDERS: Visit Provider Nurse Practitioner Family
DX: N18.9 Chronic kidney disease, unspecified (principal)
CPT/HCPCS: 36415; 80048

== ENCOUNTER → 2021-04-02 13:37 | Outpatient (CLI) | payer MEDICARE, MEDICAID, SELFPAY ==
[2020-10-23 13:01] VITALS: BMI 38.4
--- NOTE | 2021-04-02 | DI.ECHO.S_ITS ---
[facility] +---------+ : : 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 Left ventricular systolic function is moderately reduced with an estimated ejection fraction around 45% but significantly more dynamic compared to the previous study. There is a slight dyssynchronous contraction pattern and mild to moderate global hypokinesis which may be more prominent in the posterior wall but there are no other focal wall motion abnormalities. Left ventricular size is borderline increased but considerably smaller compared to the previous exam. There continues to be mild to moderate LVH. Diastolic function cannot be assessed. The right ventricle grossly appears normal and unchanged from the previous study. CVP is likely around 3 mmHg. There is a prosthetic aortic valve with probable normal prosthetic valve function with a peak transaortic valvular velocity of 2.5 m/s and a mean gradient of 15 mmHg, likely unchanged from the previous exam. Procedure: A two-dimensional transthoracic echocardiogram with color flow and Doppler was performed in limited views only to assess LVEF. Comparison is made with the echocardiogram of 09/29/2020. The patient has a paced rhythm. The patient had occasional PVCs during the exam. Left Ventricle: The left ventricle is borderline dilated. This is smaller compared to the previous study. The estimated left ventricular end diastolic volume is 161 compared to the previous 202 ml. There is mild-moderate concentric left ventricular hypertrophy. Left ventricular systolic function is moderately reduced. Left ventricular ejection fraction is estimated to be around 45%. This is significantly more dynamic compared to the previous study. There is a slight dyssynchronous contraction pattern due to the paced rhythm. There is mild to moderate global hypokinesis of the left ventricle. There may be slightly more prominent hypokinesis in the proximal mid posterior wall. Right Ventricle: There is a pacemaker lead in the right ventricle. The right ventricle grossly appears normal in size with probable normal systolic function. Aortic Valve: There is a prosthetic aortic valve. There is probable normal prosthetic aortic valve function. This is unchanged compared to the previous study. Tricuspid Valve: There is trace tricuspid regurgitation. Pulmonary artery pressures cannot be estimated because of the lack of a measurable TR jet velocity but the IVC suggests a CVP of around 3 mmHg. Great Vessels: The IVC is of normal diameter and collapses greater than 50% with a sniff. This suggests a low right atrial pressure of 3 mm Hg. Pericardium/ Pleura There is no pericardial effusion. There is an anterior echo-free space consistent with a fat pad. There is no pleural effusion. MMode/2D Measurements & Calculations LVIDd: 5.7 cm LVOT diam: 2.1 cm LVIDs: 4.1 cm Ao root diam: 2.5 cm FS: 27.8 % IVSd: 1.4 cm LVPWd: 1.2 cm LV ramirez. diameter/BSA (cm/m^2): 2.6 LV sys. diameter/BSA (cm/m^2): 1.8 Doppler Measurements & Calculations Ao V2 max: 249.0 cm/sec LVOT Max Jasbir: 104.6 cm/sec Ao V2 mean: 186.1 cm/sec LV V1 max P.4 mmHg Ao max P.8 mmHg LV V1 VTI: 22.1 cm Ao mean P.1 mmHg [place](I,D): 1.4 cm2 Ao V2 VTI: 53.7 cm [place](V,D): 1.5 cm2 sev ratio: 0.41 [place] indexed to BSA (cm^2/m^2): 0.64 MV E max jasbir: 56.8 cm/sec TR max jasbir: 216.7 cm/sec MV A max jasbir: 94.4 cm/sec TR max P.8 mmHg MV E/A: 0.60 MV dec time: 0.18 sec SV(LVOT): 76.7 ml Reading Physician:03:53 PM
== END ==
PROVIDERS: Referring Provider Physician Assistant; Visit Provider Physician Assistant
DX: I42.8 Other cardiomyopathies (principal); Z95.0 Presence of cardiac pacemaker; Z95.2 Presence of prosthetic heart valve
CPT/HCPCS: 93307

== ENCOUNTER → 2021-04-08 08:17 | Outpatient (ROUT) | payer MEDICARE, MEDICAID, SELFPAY ==
[2020-10-23 13:01] VITALS: BMI 38.4
[2021-04-08 09:27] LABS: Prostate Specific Antigen 7.61 ng/mL (0.10-4.00)
== END ==
PROVIDERS: Visit Provider Internal Medicine
DX: C61 Malignant neoplasm of prostate (principal)
CPT/HCPCS: 36415; 84153

== ENCOUNTER → 2021-04-14 13:22 | Outpatient (CLI) | payer MEDICARE, MEDICAID, SELFPAY ==
[2020-10-23 13:01] VITALS: BMI 38.4
--- NOTE | 2021-04-14 | DI.RAD.S_ITS ---
PROCEDURE: XR CHEST 2V INDICATIONS: R06.00 TECHNIQUE: 2 views of the chest were acquired. COMPARISON: [facility], , XR CHEST 1V, 11/25/2020, 10:29. FINDINGS: Surgical changes and devices: Interval exchange of the patient's left cardiac device. An aortic valve prosthesis is again seen. Lungs and pleura: Lungs are clear. No pleural effusions or pneumothorax. Mediastinum: Mediastinal contours are normal. Heart size is normal. Bones and chest wall: No suspicious bony abnormalities. Soft tissues appear unremarkable. IMPRESSION: No acute cardiopulmonary abnormality. Dictated by: Teo Thornton M.D. on 04/14/2021 at 13:56 Approved by: Teo Thornton M.D. on 04/14/2021 at 13:57
[2021-04-14 14:36] LABS: Add Manual Diff / Slide Review NO; Basophils Absolute Auto 100 /uL (0-100); Basophils Percent Auto 0.9 % (0-2); Eosinophils Absolute Auto 400 /uL (0-450); Eosinophils Percent Auto 3.6 % (2-4); Hemoglobin 10.7 g/dL (13.5-17.5); Lymphocytes Absolute Auto 1300 /uL (1100-4500); Lymphocytes Percent Auto 13.5 % (25-40); Mean Corpuscular HGB Conc 32.6 % (30-36); Mean Corpuscular Volume 73.8 fL (80-100); Monocytes Absolute Auto 600 /uL (0-900); Monocytes Percent Auto 6.2 % (3-14); Neutrophils Absolute Auto 7600 /uL (1500-7000); Neutrophils Percent Auto 75.8 % (50-75); Platelet Count 241 X10^3/uL (150-400); Red Blood Cell Count 4.47 X10^6/uL (4.5-5.9); Red Cell Distribution Width 19.1 % (11.6-14.8)
[2021-04-14 15:05] LABS: Alanine Aminotransferase 17 IU/L (<50); Albumin 4.2 g/dL (3.5-5.0); Albumin Globulin Ratio 1.7 (1.0-2.8); Alkaline Phosphatase 98 U/L (38-126); Aspartate Aminotransferase 21 IU/L (17-59); BUN Creatinine Ratio 13.4 (6-22); Bilirubin Total 0.3 mg/dL (0.2-1.3); Blood Urea Nitrogen 15 mg/dL (9-20); Calcium 9.4 mg/dL (8.4-10.2); Carbon Dioxide 25 mmol/L (22-32); Chloride 100 mmol/L (98-107); Estimated Glomerular Filt Rate > 60.0 mL/min (>60); Globulin 2.5 g/dL (1.7-4.1); Glucose 196 mg/dL (80-110); HEMOLYSIS < 15 (0-50); Potassium 4.2 mmol/L (3.4-5.1); Sodium 140 mmol/L (137-145); Total Protein 6.7 g/dL (6.3-8.2)
[2021-04-14 15:11] LABS: NT-proBNP (BNP-Adult 18+) 431 pg/mL (<125)
== END ==
PROVIDERS: PCP Internal Medicine; Referring Provider Nurse Practitioner Family; Visit Provider Nurse Practitioner Family
DX: R06.00 Dyspnea, unspecified (principal); R53.81 Other malaise; Z95.2 Presence of prosthetic heart valve
CPT/HCPCS: 36415; 71046; 80053; 83880; 85025

== ENCOUNTER 2021-04-17 16:19 | Emergency (ER) | payer MEDICARE, MEDICAID, SELFPAY ==
[2020-10-23 13:01] VITALS: BMI 38.4
[2021-04-17] VITALS (9 sets, daily range): BP systolic 120–129; BP diastolic 59–73; PULSE 78–91; RESP 19–27; TEMP 36.1; O2SAT 92–97; BMI 36.3
--- NOTE | 2021-04-17 16:35 | DI.RAD.S_ITS ---
PROCEDURE: XR CHEST 2V INDICATIONS: shortness of breath TECHNIQUE: 2 views of the chest were acquired. COMPARISON: [facility], CR, XR CHEST 1 VIEW, 12/30/2020, 14:43. [facility], CR, XR CHEST 2 VIEWS, 12/30/2020, 17:16. [facility], CR, XR CHEST 2V, 04/14/2021, 13:18. FINDINGS: Surgical changes and devices: An AICD is seen. The leads are seen in stable positions. A percutaneously placed aortic valve replacement can be seen. Lungs and pleura: Mild right lower lung interstitial type infiltrate can be seen. Low lung volumes are noted. This causes a crowded appearance to the lung markings and limits evaluation. No pneumothorax or pleural effusions are seen. Mediastinum: Mediastinal contours are normal. Heart size is normal. Bones and chest wall: No suspicious bony abnormalities. Age-appropriate bony degenerative changes are seen. Soft tissues appear unremarkable. IMPRESSION: Mild right lower lung interstitial type infiltrate can be seen. Please consider atypical infiltrate, including COVID pneumonia. Postoperative and degenerative changes are seen. Dictated by: Yong Morley M.D. on 04/17/2021 at 16:09 Approved by: Yong Morley M.D. on 04/17/2021 at 16:10
--- NOTE | 2021-04-17 17:40 | PC.NURSE ---
Patient declines IV, he states IV's are only ok if they are an emergency Lab called for CBC, CMP. aware.
[2021-04-17 17:47] LABS: COVID19 -Nasal RAPID Negative (Negative)
--- NOTE | 2021-04-17 17:55 | PC.NURSE ---
RT at bedside
--- NOTE | 2021-04-17 18:09 | PC.NURSE ---
Patient sat @ 91, placed on 2L, states he is on 2L at home.
[2021-04-17 18:12] LABS: Add Manual Diff / Slide Review NO; Basophils Absolute Auto 100 /uL (0-100); Basophils Percent Auto 0.7 % (0-2); Eosinophils Absolute Auto 300 /uL (0-450); Eosinophils Percent Auto 2.9 % (2-4); Hematocrit 30.9 % (41-53); Hemoglobin 10.1 g/dL (13.5-17.5); Lymphocytes Absolute Auto 1000 /uL (1100-4500); Lymphocytes Percent Auto 9.3 % (25-40); Mean Corpuscular HGB Conc 32.6 % (30-36); Mean Corpuscular Volume 73.7 fL (80-100); Monocytes Absolute Auto 700 /uL (0-900); Monocytes Percent Auto 6.1 % (3-14); Neutrophils Absolute Auto 9100 /uL (1500-7000); Platelet Count 248 X10^3/uL (150-400); Red Blood Cell Count 4.19 X10^6/uL (4.5-5.9); Red Cell Distribution Width 18.5 % (11.6-14.8); White Blood Cell Count 11.2 X10^3/uL (4.5-11.0)
[2021-04-17 18:25] LABS: Lactate (Lactic Acid) 1.9 mmol/L (0.7-2.1)
[2021-04-17 18:26] LABS: Alanine Aminotransferase 17 IU/L (<50); Albumin 4.2 g/dL (3.5-5.0); Albumin Globulin Ratio 1.4 (1.0-2.8); Alkaline Phosphatase 88 U/L (38-126); Aspartate Aminotransferase 20 IU/L (17-59); BUN Creatinine Ratio 14.9 (6-22); Bilirubin Total 0.2 mg/dL (0.2-1.3); Blood Urea Nitrogen 18 mg/dL (9-20); Carbon Dioxide 29 mmol/L (22-32); Chloride 98 mmol/L (98-107); Estimated Glomerular Filt Rate 58.8 mL/min (>60); Globulin 2.9 g/dL (1.7-4.1); Glucose 254 mg/dL (80-110); HEMOLYSIS < 15 (0-50); Potassium 4.1 mmol/L (3.4-5.1); Sodium 136 mmol/L (137-145); Total Protein 7.1 g/dL (6.3-8.2)
--- NOTE | 2021-04-17 18:46 | PC.NURSE ---
Patient states he went to his PCP today and stated his lungs sounded crackly and he needed to go to the ED for evaluation.
--- NOTE | 2021-04-17 18:53 | ED_ITS ---
HPI - SOB/Dyspnea General Chief Complaint: Shortness of Breath/Dyspnea Stated Complaint: sent by cardiology, breathing issues Time Seen by Provider: 04/17/21 17:50 Source: patient Mode of arrival: Family Vehicle Limitations: no limitations History of Present Illness HPI Narrative: Patient is a 71-year-old male with history of congestive heart failure with EF 20-25%, CAD, s/p AVR, s/p PPM, DM on insulin, GERD, depression, prostate CA, restless leg, presenting at the request of Cardiology concerned for increasing shortness of. Concern for possible pneumonia. Patient states that he actually has had cough that is wet but nonproductive 1. He feels weak when he walks around but it does not seem to be any worse. He is currently at a rehab facility trying to get strength. Said he had some trouble sleeping last night. He denies any fever or chills. He denies any chest pain or palpitations. He has no abdominal pain. Does wear oxygen at night. He says he has not needed it during the day. He says he generally does not feel any worse or better. Related Data Home Medications Medication Instructions Recorded Confirmed Mirapex 1 mg PO BEDTIME 09/29/20 10/23/20 Plavix 75 mg PO QAM 09/29/20 10/23/20 Zoloft 100 mg PO QAM 09/29/20 10/23/20 apixaban 5 mg PO BID 09/29/20 10/23/20 calcium carbonate 500 mg PO QAM 09/29/20 10/23/20 gabapentin 600 mg PO TID 09/29/20 10/23/20 insulin glargine 100 unit/mL 42 unit SUBCUT BEDTIME 09/29/20 10/23/20 subcutaneous cartridge insulin lispro 100 unit/mL See Rx Instructions .ROUTE .COMPLEX 09/29/20 10/23/20 subcutaneous pen metformin 500 mg PO BID 09/29/20 10/23/20 metoprolol succinate 12.5 mg PO QAM 09/29/20 10/23/20 pantoprazole 40 mg PO QAM 09/29/20 10/23/20 tolterodine 4 mg capsule,extended 4 mg PO Q24H 09/29/20 10/23/20 release 24 hr (Detrol LA) bicalutamide 50 mg tablet 50 mg PO DAILY 10/23/20 10/23/20 ibuprofen 400 mg tablet 400 mg PO PRN PRN 10/23/20 10/23/20 trazodone 50 mg tablet 50 mg PO BEDTIME 10/23/20 10/23/20 Previous Rx's Medication Instructions Recorded furosemide 20 mg tablet (Lasix) 40 mg PO QAM 30 Days #60 tab 09/30/20 lisinopril 5 mg tablet 2.5 mg PO DAILY #30 tab 10/25/20 spironolactone 25 mg tablet 25 mg PO DAILY #30 tab 10/25/20 doxycycline hyclate 100 mg capsule 100 mg PO BID #20 cap 04/17/21 Allergies Allergy/AdvReac Type Severity Reaction Status Date / Time carbidopa Allergy Verified 10/23/20 09:54 crab Allergy Verified 10/23/20 09:54 morphine Allergy Verified 10/23/20 09:54 Review of Systems Review of Systems Narrative: GENERAL: Denies chills, fatigue, malaise, fever, sweats, travel HEENT: Denies sinus pain, ear pain, sore throat, difficulty swallowing, neck pain RESPIRATORY: See HPI CARDIOVASCULAR: Significant cardiac history see HPI GASTROINTESTINAL: Denies nausea, vomiting, abdominal pain, diarrhea, constipation, melena. : Denies dysuria, frequency, incontinence, hematuria, urinary retention, flank pain. MUSCULOSKELETAL: Denies weakness, joint pain, or bony pain SKIN: No rash, no erythema, no pruritus NEUROLOGIC: Denies weakness, dizziness, headache, numbness, change in speech, confusion PSYCHIATRIC: No concerning psychosocial issues. 12 point review of systems is negative except for those stated above and HPI Patient History Medical History Congestive heart failure Diabetes GERD (gastroesophageal reflux disease) Pacemaker Surgical History H/O aortic valve replacement History of back surgery Family History Mother Coronary artery disease involving bypass graft of t ransplanted heart Cancer Social History household members: none Smoking Status: Former smoker Smoking Status: Former smoker tobacco type: cigarettes alcohol intake frequency: holidays/special occasions only Substance Use Type: former substance user Exam Initial Vital Signs Initial Vital Signs: Vital Signs Temperature 96.9 F L 04/17/21 16:29 Pulse Rate 89 04/17/21 16:29 Respiratory Rate 22 04/17/21 16:29 Blood Pressure 126/73 04/17/21 16:29 Pulse Oximetry 94 04/17/21 16:29 GENERAL: Alert 71-year-old maleand in no acute distress. HEENT: Head atraumatic,EOMI, pupils reactive, face symmetric, moist mucous membranes CARDIOVASCULAR: Regular rate and rhythm without murmurs, rubs or gallops. RESPIRATORY: Slightly coarse breath sounds no tachypnea no wheezing ABDOMEN: Soft, nontender. Normoactive bowel sounds all 4 quadrants. No guarding or rebound. EXTREMITIES: Normal range of motion, no clubbing. +1 pitting edema. Neurovascularly intact NEUROLOGICAL: Alert and oriented x4.Normal gait and speech. No focal deficits SKIN: Warm, dry, no laceration, no petechiae, no rashes or lesions. Scores CURB-65 Confusion: No BUN >19mg/dL (>7mmol/L): No Respiratory rate greater or equal to 30: No SBP <90mmHg or DBP less or equal to 60mmHg: No Age 65 or Older: Yes CURB-65 Total: 1 Score 0-1 Outpatient care, Score 2 Inpt vs. Obs, Score 3 or over Inpt admit with ICU for score of 4-5 Course Orders Ordered: ED Orders 04/17/21 17:21 COVID19 -Nasal swab/Pre-Proc Stat 04/17/21 18:06 Complete Blood Count AUTO DIFF Stat Comprehensive Metabolic Panel Stat Lactate (Lactic Acid) Stat NT-proBNP (BNP-Adult 18+) Stat Procalcitonin Stat Troponin & CK Cardiac Panel Stat Discontinued Medications Doxycycline Hyclate (Doxycycline Hyclate 100 Mg Tablet) 100 mg PO NOW ONE Stop: 04/17/21 19:44 Last Admin: 04/17/21 19:51 Dose: 100 mg Documented by: YOANNA Vital Signs Vital signs: Vital Signs - 8 hr 04/17/21 18:30 04/17/21 18:44 04/17/21 19:00 Pulse Rate 80 81 86 Respiratory Rate 27 H 19 25 H Blood Pressure 120/59 L Pulse Oximetry 97 97 96 04/17/21 19:30 04/17/21 20:00 Pulse Rate 81 80 Respiratory Rate 22 Blood Pressure 129/61 Pulse Oximetry 92 96 MDM - SOB/Dyspnea Lab Data Result diagrams: 04/17/21 18:06 04/17/21 18:06 Labs: Lab Results 04/17/21 04/17/21 04/17/21 Range/Units 17:21 18:06 18:06 WBC 11.2 H (4.5-11.0) X10^3/uL RBC 4.19 L (4.5-5.9) X10^6/uL Hgb 10.1 L (13.5-17.5) g/dL Hct 30.9 L (41-53) % MCV 73.7 L (80-100) fL MCH 24.0 L (26-34) PG MCHC 32.6 (30-36) % RDW 18.5 H (11.6-14.8) % Plt Count 248 (150-400) X10^3/uL Neut % (Auto) 81.0 H (50-75) % Lymph % (Auto) 9.3 L (25-40) % [place] % (Auto) 6.1 (3-14) % Eos % (Auto) 2.9 (2-4) % Baso % (Auto) 0.7 (0-2) % Neut # (Auto) 9100 H (0279-0873) /uL Lymph # (Auto) 1000 L (7698-2406) /uL [place] # (Auto) 700 (0-900) /uL Eos # (Auto) 300 (0-450) /uL Baso # (Auto) 100 (0-100) /uL Sodium 136 L (137-145) mmol/L Potassium 4.1 (3.4-5.1) mmol/L Chloride 98 (98-107) mmol/L Carbon Dioxide 29 (22-32) mmol/L BUN 18 (9-20) mg/dL Creatinine 1.21 (0.66-1.25) mg/dL Estimated GFR 58.8 L (>60) mL/min BUN/Creatinine Ratio 14.9 (6-22) Glucose 254 H (80-110) mg/dL Lactate (0.7-2.1) mmol/L Calcium 9.0 (8.4-10.2) mg/dL Total Bilirubin 0.2 (0.2-1.3) mg/dL AST 20 (17-59) IU/L ALT 17 (<50) IU/L Alkaline Phosphatase 88 (38-126) U/L Total Creatine Kinase (55-170) U/L CK-MB (CK-2) CK-MB (CK-2) Rel Index Troponin I (0.01-0.034) ng/mL NT-Pro-B Natriuret Pep (<125) pg/mL Total Protein 7.1 (6.3-8.2) g/dL Albumin 4.2 (3.5-5.0) g/dL Globulin 2.9 (1.7-4.1) g/dL Albumin/Globulin Ratio 1.4 (1.0-2.8) Procalcitonin (<0.5) ng/mL SARS-CoV-2 (PCR) Negative (Negative) 04/17/21 04/17/21 Range/Units 18:06 18:06 WBC (4.5-11.0) X10^3/uL RBC (4.5-5.9) X10^6/uL Hgb (13.5-17.5) g/dL Hct (41-53) % MCV (80-100) fL MCH (26-34) PG MCHC (30-36) % RDW (11.6-14.8) % Plt Count (150-400) X10^3/uL Neut % (Auto) (50-75) % Lymph % (Auto) (25-40) % [place] % (Auto) (3-14) % Eos % (Auto) (2-4) % Baso % (Auto) (0-2) % Neut # (Auto) (2767-1716) /uL Lymph # (Auto) (8943-6250) /uL [place] # (Auto) (0-900) /uL Eos # (Auto) (0-450) /uL Baso # (Auto) (0-100) /uL Sodium (137-145) mmol/L Potassium (3.4-5.1) mmol/L Chloride (98-107) mmol/L Carbon Dioxide (22-32) mmol/L BUN (9-20) mg/dL Creatinine (0.66-1.25) mg/dL Estimated GFR (>60) mL/min BUN/Creatinine Ratio (6-22) Glucose (80-110) mg/dL Lactate 1.9 (0.7-2.1) mmol/L Calcium (8.4-10.2) mg/dL Total Bilirubin (0.2-1.3) mg/dL AST (17-59) IU/L ALT (<50) IU/L Alkaline Phosphatase (38-126) U/L Total Creatine Kinase 26 L (55-170) U/L CK-MB (CK-2) TNP CK-MB (CK-2) Rel Index TNP Troponin I < 0.012 (0.01-0.034) ng/mL NT-Pro-B Natriuret Pep 555 H (<125) pg/mL Total Protein (6.3-8.2) g/dL Albumin (3.5-5.0) g/dL Globulin (1.7-4.1) g/dL Albumin/Globulin Ratio (1.0-2.8) Procalcitonin 0.13 (<0.5) ng/mL SARS-CoV-2 (PCR) (Negative) Urine Dip Bedside Urine Glucose Negative Bedside Urine Bilirubin - Negative Bedside Urine Ketone - Negative Urine Specific [place] 1.020 Bedside Urine Occult Blood - Negative Bedside Urine pH 6.0 Bedside Urine Protein - Negative Bedside Urine Urobilinogen - Negative Bedside Urine Nitrite - Negative Bedside Urine Leukocytes - Negative Esterase Imaging Data Chest x-ray: Radiologist's Impression: PROCEDURE:? XR CHEST 2V ? INDICATIONS:? shortness of breath ? TECHNIQUE:? 2 views of the chest were acquired.? ? COMPARISON:? [facility], CR, XR CHEST 1 VIEW, 12/30/2020, 14:43.? [facility], CR, XR CHEST 2 VIEWS, 12/30/2020, 17:16.? [facility], , XR CHEST 2V, 04/14/2021, 13:18. ? FINDINGS:? ? Surgical changes and devices:? An AICD is seen.? The leads are seen in stable positions.? A percutaneously placed aortic valve replacement can be seen.? ? Lungs and pleura:? Mild right lower lung interstitial type infiltrate can be seen. Low lung volumes are noted. This causes a crowded appearance to the lung markings and limits evaluation.? No pneumothorax or pleural effusions are seen. ? Mediastinum:? Mediastinal contours are normal.? Heart size is normal.? ? Bones and chest wall:? No suspicious bony abnormalities.? Age-appropriate bony degenerative changes are seen.? ? Soft tissues appear unremarkable.? IMPRESSION:? Mild right lower lung interstitial type infiltrate can be seen.? Please consider atypical infiltrate, including COVID pneumonia. ? Postoperative and degenerative changes are seen.? ? ? Dictated by: Yong Morley M.D. on 04/17/2021 at 16:09 ? ? Approved by: Yong Morley M.D. on 04/17/2021 at 16:10 ? ECG Data Interpretation: EKG paced rhythm rate [address] changes similar to previous EKG MDM Narrative Medical decision making narrative: Patient overall does not appear to be in respiratory distress x-ray has changed over the last 3 days he has had a cough ongoing for about 1 week he is afebrile COVID test is negative. Probable atypical pneumonia. Does not to appear to be in acute congestive heart failure. At this time I think it is reasonable to start course of antibiotics but no need to be admitted to hospital. He has access to oxygen if he needs but currently I have turned it off and he is doing well. Discharge Plan Departure Patient Disposition: Home Clinical Impression: Atypical pneumonia Instructions: Atypical Pneumonia Activity Restrictions/Additional Instructions: *You have been diagnosed with atypical pneumonia *What to do: At this time blood work is overall reassuring you do have mild pneumonia on your x-ray. *Continue to take medications as directed Doxycycline 100 mg twice a day x 7 days *Follow up with your primary care provider in 2-3 days *Return to ER if you should have increasing cough, shortness of breath, increasing use of oxygen, increasing weakness or any new, worsening or concerning symptoms Prescriptions: New doxycycline hyclate 100 mg capsule 100 mg PO BID Qty: 20 RF: 0 No Action pantoprazole tablet 40 mg PO QAM RF: 0 tolterodine [Detrol LA] 4 mg Capsule,Extended Release 24hr 4 mg PO Q24H RF: 0 Plavix tablet 75 mg PO QAM RF: 0 calcium carbonate 500 mg PO QAM RF: 0 metoprolol succinate 12.5 mg PO QAM RF: 0 Zoloft 100 mg PO QAM RF: 0 insulin glargine 100 unit/mL Cartridge 42 unit SUBCUT BEDTIME RF: 0 gabapentin 600 mg PO TID RF: 0 Mirapex 1 mg PO BEDTIME RF: 0 metformin 500 mg PO BID RF: 0 apixaban 5 mg PO BID RF: 0 insulin lispro 100 unit/mL Insulin Pen See Rx Instructions .ROUTE .COMPLEX RF: 0 furosemide [Lasix] 20 mg Tablet 40 mg PO QAM 30 Days Qty: 60 RF: 0 bicalutamide 50 mg tablet 50 mg PO DAILY RF: 0 trazodone 50 mg tablet 50 mg PO BEDTIME RF: 0 ibuprofen 400 mg tablet 400 mg PO PRN PRN (Reason: Pain, Mild) RF: 0 spironolactone 25 mg Tablet 25 mg PO DAILY Qty: 30 RF: 0 lisinopril 5 mg Tablet 2.5 mg PO DAILY Qty: 30 RF: 0 Referrals: Vandana Hart MD [Primary Care Provider] -
[2021-04-17 19:00] LABS: Creatine Kinase 26 U/L (55-170)
[2021-04-17 19:13] LABS: NT-proBNP (BNP-Adult 18+) 555 pg/mL (<125); Troponin I < 0.012 ng/mL (0.01-0.034)
[2021-04-17 19:17] LABS: Procalcitonin 0.13 ng/mL (<0.5)
[2021-04-17] MEDS: DOXYCYCLINE HYCLATE 100 MG TABLET PO (19:51)
== END 2021-04-17 20:08 | disposition home or self-care (01) ==
PROVIDERS: Emergency Medicine; Emergency Provider Emergency Medicine; PCP Internal Medicine; Referring Provider Internal Medicine Cardiovascular Disease
DX: J18.9 Pneumonia, unspecified organism (principal); I50.9 Heart failure, unspecified; R06.02 Shortness of breath; Z20.822 Contact with and (suspected) exposure to COVID-19
CPT/HCPCS: 71046; 80053; 81003; 82550; 83605; 83880; 84145; 84484; 85025; 87635; 93005; 99284; 99285; C9803

== ENCOUNTER → 2021-04-22 08:34 | Outpatient (ROUT) | payer MEDICARE, MEDICAID, SELFPAY ==
[2020-10-23 13:01] VITALS: BMI 38.4
[2021-04-22 09:31] LABS: NT-proBNP (BNP-Adult 18+) 291 pg/mL (<125)
== END ==
PROVIDERS: PCP Internal Medicine; Visit Provider Nurse Practitioner Gerontology
DX: R05.9 Cough, unspecified (principal); R06.00 Dyspnea, unspecified; I50.9 Heart failure, unspecified
CPT/HCPCS: 36415; 83880

== ENCOUNTER → 2021-06-02 11:49 | Outpatient (CLI) | payer MEDICARE, MEDICAID, SELFPAY ==
[2020-10-23 13:01] VITALS: BMI 38.4
--- NOTE | 2021-06-02 | DI.RAD.S_ITS ---
PROCEDURE: XR KNEE LT 1TO2V INDICATIONS: PAIN IN LEFT LEG TECHNIQUE: 2 views of the knee were acquired. COMPARISON: None. FINDINGS: Bones: No fractures or dislocations. No suspicious bony lesions. Soft tissues: There is a small joint effusion. There is suggestion of mild chondrocalcinosis. IMPRESSION: 1. Suspected chondrocalcinosis which is nonspecific but may reflect CPPD arthropathy. Dictated by: Omar Damon M.D. on 06/02/2021 at 17:02 Approved by: Omar Damon M.D. on 06/02/2021 at 17:03
--- NOTE | 2021-06-02 | DI.RAD.S_ITS ---
PROCEDURE: XR FEMUR LT MIN 2V INDICATIONS: PAIN IN LEFT LEG TECHNIQUE: AP and lateral views of the femur were acquired. COMPARISON: None. FINDINGS: Bones: No fractures or dislocations. No suspicious bony lesions. Soft tissues: No suspicious soft tissue calcifications or masses. IMPRESSION: No evidence acute bony abnormality of the left femur Dictated by: Darek Mccallum M.D. on 06/02/2021 at 16:49 Approved by: Darek Mccallum M.D. on 06/02/2021 at 16:50
== END ==
PROVIDERS: PCP Internal Medicine; Referring Provider Nurse Practitioner Gerontology; Visit Provider Nurse Practitioner Gerontology
DX: M79.605 Pain in left leg (principal); M25.462 Effusion, left knee
CPT/HCPCS: 73552; 73560

== ENCOUNTER → 2021-06-10 07:37 | Outpatient (ROUT) | payer MEDICARE, MEDICAID, SELFPAY ==
[2020-10-23 13:01] VITALS: BMI 38.4
[2021-06-10 09:02] LABS: HEMOLYSIS < 15 (0-50); Iron 43 ug/dL (49-181)
[2021-06-10 09:15] LABS: Percent Iron Saturation 11 % (20-50); Total Iron Binding Capacity 375 ug/dL (261-462); Transferrin 259 mg/dL (206-381)
== END ==
PROVIDERS: PCP Internal Medicine; Visit Provider Nurse Practitioner Gerontology
DX: D64.9 Anemia, unspecified (principal)
CPT/HCPCS: 36415; 83540; 83550

== ENCOUNTER → 2021-06-24 08:03 | Outpatient (ROUT) | payer MEDICARE, MEDICAID, SELFPAY ==
[2020-10-23 13:01] VITALS: BMI 38.4
[2021-06-24 09:04] LABS: BUN Creatinine Ratio 18.9 (6-22); Blood Urea Nitrogen 27 mg/dL (9-20); Calcium 9.2 mg/dL (8.4-10.2); Carbon Dioxide 30 mmol/L (22-32); Chloride 101 mmol/L (98-107); Estimated Glomerular Filt Rate 48.5 mL/min (>60); Glucose 136 mg/dL (80-110); HEMOLYSIS < 15 (0-50); Potassium 4.1 mmol/L (3.4-5.1); Sodium 137 mmol/L (137-145)
== END ==
PROVIDERS: PCP Internal Medicine; Visit Provider Nurse Practitioner Family
DX: N18.9 Chronic kidney disease, unspecified (principal)
CPT/HCPCS: 36415; 80048

== ENCOUNTER → 2021-06-25 09:02 | Outpatient (ROUT) | payer MEDICARE, MEDICAID, SELFPAY ==
[2020-10-23 13:01] VITALS: BMI 38.4
[2021-06-25 09:36] LABS: Alanine Aminotransferase 19 IU/L (<50); Albumin 4.2 g/dL (3.5-5.0); Albumin Globulin Ratio 1.4 (1.0-2.8); Alkaline Phosphatase 81 U/L (38-126); Aspartate Aminotransferase 22 IU/L (17-59); BUN Creatinine Ratio 21.8 (6-22); Bilirubin Total 0.3 mg/dL (0.2-1.3); Blood Urea Nitrogen 31 mg/dL (9-20); Calcium 9.3 mg/dL (8.4-10.2); Carbon Dioxide 27 mmol/L (22-32); Chloride 104 mmol/L (98-107); Estimated Glomerular Filt Rate 48.9 mL/min (>60); Globulin 2.9 g/dL (1.7-4.1); Glucose 178 mg/dL (80-110); HEMOLYSIS < 15 (0-50); Magnesium 2.1 mg/dL (1.6-2.3); Potassium 4.3 mmol/L (3.4-5.1); Sodium 139 mmol/L (137-145); Total Protein 7.1 g/dL (6.3-8.2)
== END ==
PROVIDERS: PCP Internal Medicine; Visit Provider Nurse Practitioner Gerontology
DX: E87.8 Other disorders of electrolyte and fluid balance, not elsewhere classified (principal)
CPT/HCPCS: 80053; 83735

== ENCOUNTER → 2021-07-16 10:40 | Outpatient (CLI) | payer MEDICARE, MEDICAID, SELFPAY ==
[2020-10-23 13:01] VITALS: BMI 38.4
--- NOTE | 2021-07-16 | DI.NM.S_ITS ---
PROCEDURE: NM BONE SCAN WHOLE BODY RADIOPHARMACEUTICAL: 0.4 mCi Tc-99m MDP IV. INDICATIONS: Pain in left leg TECHNIQUE: Delayed whole-body scintigrams were obtained approximately 3-4 hours after intravenous injection of radiotracer. Anterior and posterior views were acquired from vertex to feet. Additional left and right oblique views of the spine and pelvis were obtained. COMPARISON: [facility], CR, XR KNEE ARTHRITIC SERIES LT, 07/10/2021, 9:21. [facility], CR, XR FEMUR LT MIN 2V, 06/02/2021, 11:52. FINDINGS: Physiologic uptake is noted within the kidneys and bladder. There is focal areas increased uptake within the cervical, thoracic and lumbar spine. Increased uptake is noted within the anterior 8, 9, 10 right ribs. Increased uptake is noted within the knees as well as small bones of the feet and shoulder girdles. IMPRESSION: Uptake within the anterior right ribs possibly related to trauma. Rib series is recommended for further evaluation. Multifocal uptake within the spine suspected to be degenerative in nature. Increased uptake within the knee small bones of the feet as well as shoulders suggestive of arthritic change. No definitive left femur abnormality is identified. If concern persists, MRI is recommended. Dictated by: Lindsey Holder M.D. on 07/16/2021 at 21:59 Approved by: Lindsey Holder M.D. on 07/16/2021 at 22:03
== END ==
PROVIDERS: PCP Internal Medicine; Referring Provider Nurse Practitioner Gerontology; Visit Provider Nurse Practitioner Gerontology
DX: M79.605 Pain in left leg (principal)
CPT/HCPCS: 78306; A9503

== ENCOUNTER → 2021-07-22 07:32 | Outpatient (ROUT) | payer MEDICARE, MEDICAID, SELFPAY ==
[2020-10-23 13:01] VITALS: BMI 38.4
[2021-07-22 10:21] LABS: BUN Creatinine Ratio 14.6 (6-22); Blood Urea Nitrogen 18 mg/dL (9-20); Calcium 9.4 mg/dL (8.4-10.2); Carbon Dioxide 32 mmol/L (22-32); Chloride 101 mmol/L (98-107); Estimated Glomerular Filt Rate 57.7 mL/min (>60); Glucose 158 mg/dL (80-110); HEMOLYSIS < 15 (0-50); Potassium 4.3 mmol/L (3.4-5.1); Sodium 139 mmol/L (137-145)
== END ==
PROVIDERS: PCP Internal Medicine; Visit Provider Nurse Practitioner Gerontology
DX: R94.4 Abnormal results of kidney function studies (principal)
CPT/HCPCS: 36415; 80048

== ENCOUNTER → 2021-09-02 08:00 | Outpatient (ROUT) | payer MEDICARE, MEDICAID, SELFPAY ==
[2020-10-23 13:01] VITALS: BMI 38.4
[2021-09-02 09:25] LABS: BUN Creatinine Ratio 17.4 (6-22); Blood Urea Nitrogen 20 mg/dL (9-20); C-Reactive Protein Quant < 0.5 mg/dL (<1.0); Calcium 9.2 mg/dL (8.4-10.2); Carbon Dioxide 31 mmol/L (22-32); Chloride 97 mmol/L (98-107); Estimated Glomerular Filt Rate > 60.0 mL/min (>60); Glucose 130 mg/dL (80-110); HEMOLYSIS < 15 (0-50); Potassium 3.9 mmol/L (3.4-5.1); Sodium 136 mmol/L (137-145)
[2021-09-04 16:49] LABS: ANA Screen, IFA Negative (.)
[2021-09-04 21:32] LABS: CCP Antibodies IgG/IgA 7 units (0-19)
== END ==
PROVIDERS: PCP Internal Medicine; Visit Provider Nurse Practitioner Family
DX: M25.50 Pain in unspecified joint (principal); N18.9 Chronic kidney disease, unspecified
CPT/HCPCS: 36415; 80048; 86038; 86140; 86200

== ENCOUNTER → 2021-11-04 08:20 | Outpatient (ROUT) | payer MEDICARE, MEDICAID, SELFPAY ==
[2020-10-23 13:01] VITALS: BMI 38.4
[2021-11-04 08:32] LABS: Add Manual Diff / Slide Review NO; Basophils Absolute Auto 100 /uL (0-100); Basophils Percent Auto 0.5 % (0-2); Eosinophils Absolute Auto 300 /uL (0-450); Hematocrit 32.9 % (41-53); Hemoglobin 11.1 g/dL (13.5-17.5); Lymphocytes Absolute Auto 1400 /uL (1100-4500); Lymphocytes Percent Auto 12.2 % (25-40); Mean Corpuscular HGB Conc 33.7 % (30-36); Mean Corpuscular Hemoglobin 27.4 PG (26-34); Mean Corpuscular Volume 81.2 fL (80-100); Monocytes Absolute Auto 700 /uL (0-900); Monocytes Percent Auto 6.3 % (3-14); Neutrophils Absolute Auto 8900 /uL (1500-7000); Platelet Count 191 X10^3/uL (150-400); Red Blood Cell Count 4.05 X10^6/uL (4.5-5.9); Red Cell Distribution Width 15.5 % (11.6-14.8); White Blood Cell Count 11.4 X10^3/uL (4.5-11.0)
[2021-11-04 08:48] LABS: Alanine Aminotransferase 20 IU/L (<50); Albumin 3.7 g/dL (3.5-5.0); Albumin Globulin Ratio 1.4 (1.0-2.8); Alkaline Phosphatase 79 U/L (38-126); Aspartate Aminotransferase 19 IU/L (17-59); BUN Creatinine Ratio 14.5 (6-22); Bilirubin Total 0.2 mg/dL (0.2-1.3); Blood Urea Nitrogen 18 mg/dL (9-20); Calcium 8.5 mg/dL (8.4-10.2); Carbon Dioxide 31 mmol/L (22-32); Chloride 100 mmol/L (98-107); Estimated Glomerular Filt Rate > 60 mL/min (>60); Globulin 2.7 g/dL (1.7-4.1); Glucose 210 mg/dL (80-110); HEMOLYSIS < 15 (0-50); Potassium 4.1 mmol/L (3.4-5.1); Sodium 137 mmol/L (137-145); Total Protein 6.4 g/dL (6.3-8.2)
== END ==
PROVIDERS: PCP Internal Medicine; Visit Provider Nurse Practitioner Family
DX: R11.2 Nausea with vomiting, unspecified (principal)
CPT/HCPCS: 36415; 80053; 85025

== ENCOUNTER → 2021-11-25 08:51 | Outpatient (ROUT) | payer MEDICARE, MEDICAID, SELFPAY ==
[2020-10-23 13:01] VITALS: BMI 38.4
[2021-11-25 11:07] LABS: Uric Acid 7.3 mg/dL (3.5-8.5)
== END ==
PROVIDERS: PCP Internal Medicine; Visit Provider Nurse Practitioner Gerontology
DX: M10.9 Gout, unspecified (principal)
CPT/HCPCS: 36415; 84550

== ENCOUNTER → 2021-12-02 08:15 | Outpatient (ROUT) | payer MEDICARE, MEDICAID, SELFPAY ==
[2020-10-23 13:01] VITALS: BMI 38.4
[2021-12-02 08:31] LABS: Add Manual Diff / Slide Review NO; Basophils Absolute Auto 100 /uL (0-100); Basophils Percent Auto 0.9 % (0-2); Eosinophils Absolute Auto 300 /uL (0-450); Eosinophils Percent Auto 3.6 % (2-4); Hematocrit 34.1 % (41-53); Hemoglobin 11.5 g/dL (13.5-17.5); Lymphocytes Absolute Auto 1700 /uL (1100-4500); Lymphocytes Percent Auto 19.5 % (25-40); Mean Corpuscular HGB Conc 33.6 % (30-36); Mean Corpuscular Hemoglobin 27.4 PG (26-34); Mean Corpuscular Volume 81.4 fL (80-100); Monocytes Absolute Auto 600 /uL (0-900); Monocytes Percent Auto 6.7 % (3-14); Neutrophils Absolute Auto 6200 /uL (1500-7000); Neutrophils Percent Auto 69.3 % (50-75); Platelet Count 205 X10^3/uL (150-400); Red Blood Cell Count 4.19 X10^6/uL (4.5-5.9); White Blood Cell Count 8.9 X10^3/uL (4.5-11.0)
[2021-12-02 08:51] LABS: BUN Creatinine Ratio 14.3 (6-22); Blood Urea Nitrogen 17 mg/dL (9-20); Calcium 8.9 mg/dL (8.4-10.2); Carbon Dioxide 29 mmol/L (22-32); Chloride 103 mmol/L (98-107); Estimated Glomerular Filt Rate > 60 mL/min (>60); Glucose 150 mg/dL (80-110); HEMOLYSIS < 15 (0-50); Potassium 3.9 mmol/L (3.4-5.1); Sodium 138 mmol/L (137-145)
== END ==
PROVIDERS: PCP Internal Medicine; Visit Provider Nurse Practitioner Gerontology
DX: D72.0 Genetic anomalies of leukocytes (principal); I50.9 Heart failure, unspecified; M10.9 Gout, unspecified
CPT/HCPCS: 36415; 80048; 85025

== ENCOUNTER → 2021-12-09 08:30 | Outpatient (ROUT) | payer MEDICARE, MEDICAID, SELFPAY ==
[2020-10-23 13:01] VITALS: BMI 38.4
[2021-12-09 12:57] LABS: Prostate Specific Antigen 11.3 ng/mL (0.10-4.00)
== END ==
PROVIDERS: PCP Internal Medicine; Visit Provider Nurse Practitioner Family
DX: Z12.5 Encounter for screening for malignant neoplasm of prostate (principal)
CPT/HCPCS: 36415; 84153

== ENCOUNTER → 2022-01-06 08:38 | Outpatient (ROUT) | payer MEDICARE, MEDICAID, SELFPAY ==
[2020-10-23 13:01] VITALS: BMI 38.4
[2022-01-06 09:21] LABS: Hemoglobin A1C% w Est Avg Glu 8.2 % (4.0-6.0)
[2022-01-06 09:41] LABS: BUN Creatinine Ratio 15.4 (6-22); Blood Urea Nitrogen 21 mg/dL (9-20); Calcium 8.7 mg/dL (8.4-10.2); Carbon Dioxide 29 mmol/L (22-32); Chloride 102 mmol/L (98-107); Estimated Glomerular Filt Rate 55 mL/min (>60); Glucose 202 mg/dL (80-110); HEMOLYSIS < 15 (0-50); Potassium 4.1 mmol/L (3.4-5.1); Sodium 138 mmol/L (137-145)
== END ==
PROVIDERS: PCP Internal Medicine; Visit Provider Nurse Practitioner Family
DX: E11.9 Type 2 diabetes mellitus without complications (principal)
CPT/HCPCS: 36415; 80048; 83036

== ENCOUNTER → 2022-01-09 12:41 | Outpatient (ROUT) | payer MEDICARE, MEDICAID, SELFPAY ==
[2020-10-23 13:01] VITALS: BMI 38.4
[2022-01-09 12:50] LABS: Appearance Urine UA CLEAR; Bilirubin Urine UA NEGATIVE (NEGATIVE); Color Urine UA YELLOW; Glucose Urine UA TRACE g/dL (Negative); Ketones Urine UA NEGATIVE (NEGATIVE); Leukocyte Esterase Urine UA NEGATIVE (NEGATIVE); Nitrite Urine UA NEGATIVE (Negative); Occult Blood Urine UA NEGATIVE (Negative); Protein Urine UA NEGATIVE (Negative); Specific Gravity Urine UA 1.015 (1.000-1.035); Urobilinogen Urine UA 0.2 E.U./dL (0.2)
[2022-01-09 13:03] LABS: Bacteria Urine Occasional (0-1); RBC Urine None Seen (0-5/HPF); Squamous Epithelial Cell Urine 0-1 /HPF (0-5/HPF); WBC Urine 0-1/HPF (0-5/HPF)
== END ==
PROVIDERS: PCP Internal Medicine; Visit Provider Nurse Practitioner Family
DX: R35.0 Frequency of micturition (principal); N39.498 Other specified urinary incontinence
CPT/HCPCS: 81001; 87086

== ENCOUNTER → 2022-01-14 18:35 | Outpatient (ROUT) | payer MEDICARE, MEDICAID, SELFPAY ==
[2020-10-23 13:01] VITALS: BMI 38.4
[2022-01-14 18:51] LABS: Add Manual Diff / Slide Review NO; Basophils Absolute Auto 100 /uL (0-100); Basophils Percent Auto 0.6 % (0-2); Eosinophils Absolute Auto 200 /uL (0-450); Eosinophils Percent Auto 1.7 % (2-4); Hematocrit 37.6 % (41-53); Hemoglobin 12.6 g/dL (13.5-17.5); Lymphocytes Absolute Auto 1600 /uL (1100-4500); Lymphocytes Percent Auto 13.1 % (25-40); Mean Corpuscular HGB Conc 33.4 % (30-36); Mean Corpuscular Hemoglobin 27.5 PG (26-34); Mean Corpuscular Volume 82.2 fL (80-100); Monocytes Absolute Auto 600 /uL (0-900); Monocytes Percent Auto 4.8 % (3-14); Neutrophils Absolute Auto 9600 /uL (1500-7000); Neutrophils Percent Auto 79.8 % (50-75); Platelet Count 232 X10^3/uL (150-400); Red Blood Cell Count 4.57 X10^6/uL (4.5-5.9); Red Cell Distribution Width 15.9 % (11.6-14.8); White Blood Cell Count 12.1 X10^3/uL (4.5-11.0)
[2022-01-14 19:17] LABS: Alanine Aminotransferase 26 IU/L (<50); Albumin 4.4 g/dL (3.5-5.0); Albumin Globulin Ratio 1.8 (1.0-2.8); Alkaline Phosphatase 78 U/L (38-126); Aspartate Aminotransferase 26 IU/L (17-59); Bilirubin Total 0.4 mg/dL (0.2-1.3); Blood Urea Nitrogen 23 mg/dL (9-20); Calcium 9.3 mg/dL (8.4-10.2); Carbon Dioxide 24 mmol/L (22-32); Chloride 98 mmol/L (98-107); Estimated Glomerular Filt Rate 59 mL/min (>60); Globulin 2.5 g/dL (1.7-4.1); Glucose 183 mg/dL (80-110); HEMOLYSIS < 15 (0-50); Potassium 4.5 mmol/L (3.4-5.1); Sodium 134 mmol/L (137-145); Total Protein 6.9 g/dL (6.3-8.2)
== END ==
PROVIDERS: PCP Internal Medicine; Visit Provider Nurse Practitioner Gerontology
DX: R53.83 Other fatigue (principal); R68.83 Chills (without fever); Z85.46 Personal history of malignant neoplasm of prostate
CPT/HCPCS: 80053; 85025

== ENCOUNTER → 2022-01-15 13:38 | Outpatient (ROUT) | payer MEDICARE, MEDICAID, SELFPAY ==
[2020-10-23 13:01] VITALS: BMI 38.4
[2022-01-15 14:07] LABS: Appearance Urine UA CLEAR; Bilirubin Urine UA NEGATIVE (NEGATIVE); Color Urine UA YELLOW; Glucose Urine UA NEGATIVE (Negative); Ketones Urine UA NEGATIVE (NEGATIVE); Leukocyte Esterase Urine UA NEGATIVE (NEGATIVE); Nitrite Urine UA NEGATIVE (Negative); Occult Blood Urine UA NEGATIVE (Negative); Protein Urine UA NEGATIVE (Negative); Specific Gravity Urine UA 1.015 (1.000-1.035); Urobilinogen Urine UA 0.2 E.U./dL (0.2)
[2022-01-15 14:42] LABS: Bacteria Urine Occasional (0-1); RBC Urine None Seen (0-5/HPF); WBC Urine 0-1/HPF (0-5/HPF)
== END ==
PROVIDERS: PCP Internal Medicine; Visit Provider Nurse Practitioner Gerontology
DX: R10.9 Unspecified abdominal pain (principal); R35.0 Frequency of micturition; R39.15 Urgency of urination
CPT/HCPCS: 81001; 87086

== ENCOUNTER → 2022-01-20 08:42 | Outpatient (ROUT) | payer MEDICARE, MEDICAID, SELFPAY ==
[2020-10-23 13:01] VITALS: BMI 38.4
[2022-01-20 09:41] LABS: Add Manual Diff / Slide Review NO; Basophils Absolute Auto 100 /uL (0-100); Basophils Percent Auto 0.8 % (0-2); Eosinophils Absolute Auto 200 /uL (0-450); Eosinophils Percent Auto 2.3 % (2-4); Hematocrit 35.2 % (41-53); Hemoglobin 11.8 g/dL (13.5-17.5); Lymphocytes Absolute Auto 1700 /uL (1100-4500); Lymphocytes Percent Auto 18.7 % (25-40); Mean Corpuscular HGB Conc 33.5 % (30-36); Mean Corpuscular Hemoglobin 27.7 PG (26-34); Mean Corpuscular Volume 82.6 fL (80-100); Monocytes Absolute Auto 700 /uL (0-900); Monocytes Percent Auto 7.2 % (3-14); Neutrophils Absolute Auto 6600 /uL (1500-7000); Platelet Count 209 X10^3/uL (150-400); Red Blood Cell Count 4.26 X10^6/uL (4.5-5.9); Red Cell Distribution Width 16.1 % (11.6-14.8); White Blood Cell Count 9.3 X10^3/uL (4.5-11.0)
== END ==
PROVIDERS: PCP Internal Medicine; Visit Provider Nurse Practitioner Family
DX: D72.829 Elevated white blood cell count, unspecified (principal)
CPT/HCPCS: 36415; 85025

== ENCOUNTER → 2022-01-21 11:40 | Outpatient (ROUT) | payer MEDICARE, MEDICAID, SELFPAY ==
[2020-10-23 13:01] VITALS: BMI 38.4
[2022-01-21 12:36] LABS: Blood Urea Nitrogen 23 mg/dL (9-20); Calcium 8.9 mg/dL (8.4-10.2); Carbon Dioxide 28 mmol/L (22-32); Chloride 99 mmol/L (98-107); Estimated Glomerular Filt Rate > 60 mL/min (>60); Glucose 199 mg/dL (80-110); HEMOLYSIS < 15 (0-50); Potassium 4.5 mmol/L (3.4-5.1); Sodium 135 mmol/L (137-145)
== END ==
PROVIDERS: PCP Internal Medicine; Visit Provider Internal Medicine
DX: R25.2 Cramp and spasm (principal)
CPT/HCPCS: 80048

== ENCOUNTER → 2022-02-03 13:17 | Outpatient (ROUT) | payer MEDICARE, MEDICAID, SELFPAY ==
[2020-10-23 13:01] VITALS: BMI 38.4
[2022-02-03 14:23] LABS: BUN Creatinine Ratio 16.1 (6-22); Blood Urea Nitrogen 22 mg/dL (9-20); Calcium 8.7 mg/dL (8.4-10.2); Carbon Dioxide 29 mmol/L (22-32); Chloride 96 mmol/L (98-107); Estimated Glomerular Filt Rate 54 mL/min (>60); Glucose 245 mg/dL (80-110); HEMOLYSIS < 15 (0-50); Potassium 4.8 mmol/L (3.4-5.1); Sodium 134 mmol/L (137-145)
== END ==
PROVIDERS: PCP Internal Medicine; Visit Provider Nurse Practitioner Family
DX: N18.9 Chronic kidney disease, unspecified (principal)
CPT/HCPCS: 80048

== ENCOUNTER → 2022-03-17 13:43 | Outpatient (ROUT) | payer MEDICARE, MEDICAID, SELFPAY ==
[2020-10-23 13:01] VITALS: BMI 38.4
[2022-03-17 13:50] LABS: Add Manual Diff / Slide Review NO; Basophils Absolute Auto 100 /uL (0-100); Basophils Percent Auto 0.9 % (0-2); Eosinophils Absolute Auto 300 /uL (0-450); Eosinophils Percent Auto 3.5 % (2-4); Hematocrit 33.3 % (41-53); Hemoglobin 11.4 g/dL (13.5-17.5); Lymphocytes Absolute Auto 900 /uL (1100-4500); Lymphocytes Percent Auto 10.2 % (25-40); Mean Corpuscular HGB Conc 34.2 % (30-36); Mean Corpuscular Hemoglobin 28.4 PG (26-34); Mean Corpuscular Volume 82.9 fL (80-100); Monocytes Absolute Auto 500 /uL (0-900); Monocytes Percent Auto 5.8 % (3-14); Neutrophils Absolute Auto 7200 /uL (1500-7000); Neutrophils Percent Auto 79.6 % (50-75); Platelet Count 197 X10^3/uL (150-400); Red Blood Cell Count 4.01 X10^6/uL (4.5-5.9); Red Cell Distribution Width 15.1 % (11.6-14.8); White Blood Cell Count 9.1 X10^3/uL (4.5-11.0)
[2022-03-17 13:57] LABS: Alanine Aminotransferase 20 IU/L (<50); Albumin 3.6 g/dL (3.5-5.0); Albumin Globulin Ratio 1.5 (1.0-2.8); Alkaline Phosphatase 98 U/L (38-126); Aspartate Aminotransferase 19 IU/L (17-59); BUN Creatinine Ratio 13.7 (6-22); Bilirubin Total 0.2 mg/dL (0.2-1.3); Blood Urea Nitrogen 17 mg/dL (9-20); Calcium 8.4 mg/dL (8.4-10.2); Carbon Dioxide 25 mmol/L (22-32); Chloride 100 mmol/L (98-107); Estimated Glomerular Filt Rate > 60 mL/min (>60); Globulin 2.4 g/dL (1.7-4.1); Glucose 200 mg/dL (80-110); HEMOLYSIS < 15 (0-50); Potassium 4.2 mmol/L (3.4-5.1); Sodium 136 mmol/L (137-145)
== END ==
PROVIDERS: PCP Internal Medicine; Visit Provider Internal Medicine
DX: Z79.899 Other long term (current) drug therapy (principal)
CPT/HCPCS: 80053; 84153; 85025

== ENCOUNTER → 2022-03-26 16:39 | Outpatient (CLI) | payer MEDICARE, MEDICAID, SELFPAY ==
[2020-10-23 13:01] VITALS: BMI 38.4
--- NOTE | 2022-03-26 | DI.US.S_ITS ---
PROCEDURE: US PERIPH VENOUS LOW EXTREM RT INDICATIONS: R/O DV TECHNIQUE: Real-time imaging, as well as color and pulse Doppler interrogation, were performed of the lower extremity deep veins from the inguinal ligament to the popliteal fossa. COMPARISON: None. FINDINGS: Internal echoes and noncompressibility of the deep and superficial femoral veins. Compressibility and venous waveforms noted in the common femoral and popliteal veins. IMPRESSION: Positive deep venous thrombosis noted in the superficial femoral vein Critical results were discussed with the ordering provider by the pillow cleaner at 5:35 p.m. [place] time Approved by: Ronaldo Robertson M.D. on 03/26/2022 at 16:48
== END ==
PROVIDERS: PCP Internal Medicine; Referring Provider Nurse Practitioner Gerontology; Visit Provider Nurse Practitioner Gerontology
DX: I82.811 Embolism and thrombosis of superficial veins of right lower extremity (principal); R60.0 Localized edema
CPT/HCPCS: 93971

== ENCOUNTER 2022-03-27 10:51 | Emergency (ER) | payer MEDICARE, MEDICAID, SELFPAY ==
[2020-10-23 13:01] VITALS: BMI 38.4
[2022-03-27 11:11] VITALS: BP 152/67; PULSE 68; RESP 20; TEMP 36.9; O2SAT 100
--- NOTE | 2022-03-27 11:19 | ED_ITS ---
HPI - Extremity Problem General Chief complaint: Extremity Problem,Nontraumatic Stated complaint: Rt. leg pain Time Seen by Provider: 03/27/22 11:03 Source: patient Mode of arrival: EMS Limitations: no limitations History of Present Illness HPI Narrative: Patient is a 72-year-old male. Is here from the living facility for concerns of a blood clot in his right lower extremity. He had a ultrasound last evening as an outpatient which showed a DVT in his superficial and deep femoral veins on his right lower extremity. This was ordered because he was noticing swelling in his right leg. He denies chest pain. No shortness of breath. He is unsure exactly what medicines he is taking however his medicine list shows him on apixaban and also Plavix. The patient thought that he was on Coumadin but this does not seem to be the case. He is unsure why he is on these medicines. He does have a history of heart failure. He states that after his ultrasound last evening he was not started/changed any medications. He is unsure as to why he is here in the emergency department today. Thought that maybe the living facility was concerned about his diagnosis yesterday. Related Data Home Medications Medication Instructions Recorded Confirmed Mirapex 1 mg PO BEDTIME 09/29/20 04/22/21 Plavix 75 mg PO QAM 09/29/20 04/22/21 Zoloft 100 mg PO QAM 09/29/20 04/22/21 apixaban 5 mg PO BID 09/29/20 04/22/21 calcium carbonate 500 mg PO QAM 09/29/20 04/22/21 gabapentin 600 mg PO TID 09/29/20 04/22/21 insulin glargine 100 unit/mL 42 unit SUBCUT BEDTIME 09/29/20 04/22/21 subcutaneous cartridge insulin lispro 100 unit/mL See Rx Instructions .Route .COMPLEX 09/29/20 04/22/21 subcutaneous pen metformin 500 mg PO BID 09/29/20 04/22/21 metoprolol succinate 12.5 mg PO QAM 09/29/20 04/22/21 pantoprazole 40 mg PO QAM 09/29/20 04/22/21 tolterodine 4 mg capsule,extended 4 mg PO Q24H 09/29/20 04/22/21 release 24 hr (Detrol LA) bicalutamide 50 mg tablet 50 mg PO DAILY 10/23/20 04/22/21 ibuprofen 400 mg tablet 400 mg PO PRN PRN Pain, Mild 10/23/20 04/22/21 trazodone 50 mg tablet 50 mg PO BEDTIME 10/23/20 04/22/21 acetaminophen 325 mg capsule 325 mg PO ONCE PRN 04/22/21 04/22/21 ferrous sulfate 325 mg (65 mg 325 mg PO DAILY 04/22/21 04/22/21 iron) tablet (Feosol) loperamide 2 mg tablet 2 mg PO Q6H PRN 04/22/21 04/22/21 nystatin-triamcinolone topical applic topical 04/22/21 04/22/21 cream tramadol 50 mg tablet 50 mg PO Q8H PRN 04/22/21 04/22/21 Previous Rx's Medication Instructions Recorded furosemide 20 mg tablet (Lasix) 40 mg PO QAM 30 days #60 tabs 09/30/20 lisinopril 5 mg tablet 2.5 mg PO DAILY #30 tabs 10/25/20 spironolactone 25 mg tablet 25 mg PO DAILY #30 tabs 10/25/20 doxycycline hyclate 100 mg capsule 100 mg PO BID #20 caps 04/17/21 Allergies Allergy/AdvReac Type Severity Reaction Status Date / Time carbidopa Allergy Verified 04/22/21 13:02 crab Allergy Verified 04/22/21 13:02 morphine Allergy Verified 04/22/21 13:02 Review of Systems Review of Systems ROS Unobtainable: All systems reviewed & are unremarkable except as noted in HPI and below Patient History Medical History Congestive heart failure Diabetes GERD (gastroesophageal reflux disease) Pacemaker Surgical History H/O aortic valve replacement History of back surgery Family History Mother Coronary artery disease involving bypass graft of transplanted heart Cancer Social History household members: none Smoking Status: Former smoker Smoking Status: Former smoker tobacco type: cigarettes alcohol intake frequency: holidays/special occasions only Substance Use Type: former substance user Exam Initial Vital Signs Initial Vital Signs: Vital Signs Temperature 98.4 F 03/27/22 11:11 Pulse Rate 68 03/27/22 11:11 Respiratory Rate 20 03/27/22 11:11 Blood Pressure 152/67 H 03/27/22 11:11 Pulse Oximetry 100 03/27/22 11:11 Oxygen Delivery Method 03/27/22 11:11 HENMT Head: normal to inspection and normocephalic Resp Effort & Inspection: normal respiratory effort Auscultation: clear to auscultation bilaterally Cardio Rate: regular rate Rhythm: regular rhythm Heart Sounds: murmur Neuro General: patient alert, patient awake and moves all extremities Extrem Other: Swelling to right lower extremity Psych Appearance: grossly normal and well kempt Course Vital Signs Vital signs: Vital Signs - 8 hr 03/27/22 11:11 Temperature 98.4 F Pulse Rate 68 Respiratory Rate 20 Blood Pressure 152/67 H Pulse Oximetry 100 Oxygen Delivery Method Room Air MDM - Extremity (Nontraumatic) MDM Narrative Medical decision making narrative: I was able to talk to the APC at the living facility. Apparently there was concern about him having ?to blood clots? in his right leg and maybe his symptoms worsening over the evening. The APC was concerned that maybe he had a pulmonary embolism. Was also concerned that he has been on apixaban and now has a clot. Patient denies chest pain. No shortness of breath. Does have swelling in his right leg. I did discuss this with the APC at the facility. I have little concern for pulmonary embolism based on his presentation today. I do have concern that he has developed a clot on the apixaban. He needs to be switched to Lovenox and needs follow-up with Hematology. The APC expressed un derstanding of this. Discharge Plan Departure Patient Disposition: Home Clinical Impression: Deep vein thrombosis of lower extremity Instructions: Deep Vein Thrombosis Activity Restrictions/Additional Instructions: Since Erick has developed clot while on apixaban and Plavix these medications n eed to be stopped and he needs to be started on Lovenox. This can be done by his provider at his living facility. He also needs follow-up with Hematology. I also recommend compression stockings to his right lower extremity and also keeping it elevated. He can return to emergency department for any new or worsening symptoms. Prescriptions: No Action pantoprazole tablet 40 mg PO QAM tolterodine [Detrol LA] 4 mg Capsule,Extended Release 24hr 4 mg PO Q24H Plavix tablet 75 mg PO QAM calcium carbonate 500 mg PO QAM metoprolol succinate 12.5 mg PO QAM Zoloft 100 mg PO QAM insulin glargine 100 unit/mL Cartridge 42 unit SUBCUT BEDTIME gabapentin 600 mg PO TID Mirapex 1 mg PO BEDTIME metformin 500 mg PO BID apixaban 5 mg PO BID insulin lispro 100 unit/mL Insulin Pen See Rx Instructions .ROUTE .COMPLEX Rx Instructions: sliding scale per hospital protocal furosemide [Lasix] 20 mg Tablet 40 mg PO QAM 30 Days Qty: 60 0RF bicalutamide 50 mg tablet 50 mg PO DAILY trazodone 50 mg tablet 50 mg PO BEDTIME ibuprofen 400 mg tablet 400 mg PO PRN PRN (Reason: Pain, Mild) spironolactone 25 mg Tablet 25 mg PO DAILY Qty: 30 0RF lisinopril 5 mg Tablet 2.5 mg PO DAILY Qty: 30 0RF doxycycline hyclate 100 mg capsule 100 mg PO BID Qty: 20 0RF ferrous sulfate [Feosol] 325 mg (65 mg iron) tablet 325 mg PO DAILY tramadol 50 mg tablet 50 mg PO Q8H PRN nystatin-triamcinolone Cream topical loperamide 2 mg tablet 2 mg PO Q6H PRN acetaminophen 325 mg capsule 325 mg PO ONCE PRN Referrals: Vandana Hart MD [Primary Care Provider] -
[2022-03-27 12:03] VITALS: BP 128/73; PULSE 71; RESP 18; O2SAT 96
== END 2022-03-27 12:31 | disposition home or self-care (01) ==
PROVIDERS: Emergency Provider Emergency Medicine; PCP Internal Medicine
DX: I82.401 Acute embolism and thrombosis of unspecified deep veins of right lower extremity (principal); Z79.01 Long term (current) use of anticoagulants
CPT/HCPCS: 99281

== ENCOUNTER 2022-03-29 06:55 | Emergency (ER) | payer MEDICARE, MEDICAID, SELFPAY ==
[2020-10-23 13:01] VITALS: BMI 38.4
[2022-03-29 07:03] VITALS: BP 132/59; PULSE 70; RESP 18; O2SAT 96; BMI 36.9
--- NOTE | 2022-03-29 07:05 | DI.CT.S_ITS ---
PROCEDURE: CT ANGIO CHEST PE PROTOCOL INDICATIONS: Chest pain, shortness of breath, tachycardia TECHNIQUE: After the administration of intravenous contrast, 2 mm thick sections acquired from the pulmonary apices to the posterior costophrenic angles. 3-dimensional maximum intensity projection (MIP) coronal and sagittal reformats were then acquired through the thorax. For radiation dose reduction, the following was used: automated exposure control, adjustment of mA and/or kV according to patient size. COMPARISON: Outside Film, CT, CT ANGIO CHEST ABDOMEN PELVIS, 05/31/2018, 14:14. [facility], , PERIPH VENOUS LOW EXTREM RT, 03/26/2022, 17:01. [facility], CT, CT ABDOMEN PELVIS WITH CONTRAST, 12/24/2021, 13:25. [facility], [place], [place] BONE SCAN WHOLE BODY, 12/24/2021, 15:12. FINDINGS: Image quality: Excellent. Pulmonary arteries: Pulmonary arteries are normal in size, and demonstrate no intraluminal filling defects to suggest central pulmonary embolism. Lungs and pleura: Lungs are clear. No pleural effusions or pneumothorax. Central and peripheral airways are patent. Mediastinum: A percutaneously placed aortic valve prosthesis is seen. At least moderate coronary artery calcification is seen. Heart size is normal, without pericardial effusion. No mediastinal or hilar adenopathy. Thoracic aorta is normal in caliber and enhancement. Esophagus is normal in caliber, without hiatal hernia. Bones and chest wall: No suspicious bony lesions. Ribs and thoracic spine appear intact throughout. Age-appropriate bony degenerative changes are seen. An AICD is seen. Thyroid gland demonstrates no significant abnormality. No axillary or supraclavicular adenopathy. Incidental note is made of bilateral gynecomastia. Abdomen: The spleen is enlarged, measuring 15.5 cm AP. Incidental note is made of an accessory splenule along the negative for pulmonary embolism. of the primary spleen. The visualized portions of the upper abdominal structures are otherwise unremarkable for imaging technique. IMPRESSION: Negative for pulmonary embolism. Incidental note is made of: AICD Percutaneously placed aortic valve replacement At least moderate coronary artery calcification Gynecomastia Splenomegaly Accessory splenule Dictated by: Yong Morley M.D. on 03/29/2022 at 7:35 Approved by: Yong Morley M.D. on 03/29/2022 at 7:39
--- NOTE | 2022-03-29 07:29 | ED_ITS ---
HPI - General Adult General Chief complaint: Shortness of Breath/Dyspnea Stated complaint: SOB Time Seen by Provider: 03/29/22 07:00 Source: patient Mode of arrival: EMS History of Present Illness HPI narrative: 72-year-old male. With a known right lower extremity DVT. This apparently happened while he was on apixaban. He has been switched to Lovenox. He has been using a compression stocking in his right leg. His right leg is swollen. Is somewhat painful. Overnight had an episode of some chest tightness with some shortness of breath. He currently is having the symptoms somewhat but it is much improved. Fevers. No abdominal pain. Related Data Home Medications Medication Instructions Recorded Confirmed Mirapex 1 mg PO BEDTIME 09/29/20 04/22/21 Plavix 75 mg PO QAM 09/29/20 04/22/21 Zoloft 100 mg PO QAM 09/29/20 04/22/21 apixaban 5 mg PO BID 09/29/20 04/22/21 calcium carbonate 500 mg PO QAM 09/29/20 04/22/21 gabapentin 600 mg PO TID 09/29/20 04/22/21 insulin glargine 100 unit/mL 42 unit SUBCUT BEDTIME 09/29/20 04/22/21 subcutaneous cartridge insulin lispro 100 unit/mL See Rx Instructions .Route .COMPLEX 09/29/20 04/22/21 subcutaneous pen metformin 500 mg PO BID 09/29/20 04/22/21 metoprolol succinate 12.5 mg PO QAM 09/29/20 04/22/21 pantoprazole 40 mg PO QAM 09/29/20 04/22/21 tolterodine 4 mg capsule,extended 4 mg PO Q24H 09/29/20 04/22/21 release 24 hr (Detrol LA) bicalutamide 50 mg tablet 50 mg PO DAILY 10/23/20 04/22/21 ibuprofen 400 mg tablet 400 mg PO PRN PRN Pain, Mild 10/23/20 04/22/21 trazodone 50 mg tablet 50 mg PO BEDTIME 10/23/20 04/22/21 acetaminophen 325 mg capsule 325 mg PO ONCE PRN 04/22/21 04/22/21 ferrous sulfate 325 mg (65 mg 325 mg PO DAILY 04/22/21 04/22/21 iron) tablet (Feosol) loperamide 2 mg tablet 2 mg PO Q6H PRN 04/22/21 04/22/21 nystatin-triamcinolone topical applic topical 04/22/21 04/22/21 cream tramadol 50 mg tablet 50 mg PO Q8H PRN 04/22/21 04/22/21 Previous Rx's Medication Instructions Recorded furosemide 20 mg tablet (Lasix) 40 mg PO QAM 30 days #60 tabs 09/30/20 lisinopril 5 mg tablet 2.5 mg PO DAILY #30 tabs 10/25/20 spironolactone 25 mg tablet 25 mg PO DAILY #30 tabs 10/25/20 doxycycline hyclate 100 mg capsule 100 mg PO BID #20 caps 04/17/21 Allergies Allergy/AdvReac Type Severity Reaction Status Date / Time carbidopa Allergy Verified 04/22/21 13:02 crab Allergy Verified 04/22/21 13:02 morphine Allergy Verified 04/22/21 13:02 Review of Systems Review of Systems ROS Unobtainable: All systems reviewed & are unremarkable except as noted in HPI and below Patient History Medical History Congestive heart failure Diabetes GERD (gastroesophageal reflux disease) Pacemaker Surgical History H/O aortic valve replacement History of back surgery Family History Mother Coronary artery disease involving bypass graft of transplanted heart Cancer Social History household members: none Smoking Status: Former smoker Smoking Status: Former smoker tobacco type: cigarettes alcohol intake frequency: holidays/special occasions only Substance Use Type: former substance user Exam Initial Vital Signs Initial Vital Signs: Vital Signs Pulse Rate 70 03/29/22 07:03 Respiratory Rate 18 03/29/22 07:03 Blood Pressure 132/59 L 03/29/22 07:03 Pulse Oximetry 96 03/29/22 07:03 Oxygen Delivery Method 03/29/22 07:03 Const General: cooperative, healthy appearing, comfortable and No ill appearing HENMT Head: normal to inspection and normocephalic Resp Effort & Inspection: normal respiratory effort Auscultation: clear to auscultation bilaterally Cardio Rate: regular rate Rhythm: regular rhythm GI Palpation: soft and No tender Skin General: no rashes or lesions noted Neuro General: patient alert, patient awake, patient oriented x3 and moves all extremities Extrem Other: Right lower extremity swollen compared to the left. Hyperemic but not erythematous. Psych Appearance: grossly normal Course Orders Ordered: ED Orders 03/29/22 07:05 CT angio chest PE protocol Stat EKG-12 Lead Stat 03/29/22 07:15 Complete Blood Count AUTO DIFF Stat Comprehensive Metabolic Panel Stat Lipase Stat Partial Thromboplastin Time Stat Prothrombin Time INR Stat Troponin & CK Cardiac Panel Stat 03/29/22 09:25 Troponin I Stat Vital Signs Vital signs: Vital Signs - 8 hr 03/29/22 07:03 03/29/22 09:35 03/29/22 09:36 Pulse Rate 70 67 Respiratory Rate 18 Blood Pressure 132/59 L 122/67 Pulse Oximetry 96 95 Oxygen Delivery Method Room Air 03/29/22 09:36 Pulse Rate 67 Respiratory Rate Blood Pressure Pulse Oximetry 96 Oxygen Delivery Method Room Air Medical Decision Making Lab Data Lab results reviewed: Yes I reviewed the patient's lab results. Result diagrams: 03/29/22 07:15 03/29/22 07:15 Labs: Lab Results 03/29/22 03/29/22 03/29/22 Range/Units 07:15 07:15 07:15 WBC 9.4 (4.5-11.0) X10^3/uL RBC 4.06 L (4.5-5.9) X10^6/uL Hgb 11.5 L (13.5-17.5) g/dL Hct 33.5 L (41-53) % MCV 82.7 (80-100) fL MCH 28.4 (26-34) PG MCHC 34.3 (30-36) % RDW 14.9 H (11.6-14.8) % Plt Count 183 (150-400) X10^3/uL Neut % (Auto) 74.2 (50-75) % Lymph % (Auto) 15.2 L (25-40) % [place] % (Auto) 6.6 (3-14) % Eos % (Auto) 3.3 (2-4) % Baso % (Auto) 0.7 (0-2) % Neut # (Auto) 7000 (9682-8362) /uL Lymph # (Auto) 1400 (8537-5306) /uL [place] # (Auto) 600 (0-900) /uL Eos # (Auto) 300 (0-450) /uL Baso # (Auto) 100 (0-100) /uL PT 13.7 H (10.1-12.7) SECONDS INR 1.2 (0.9-1.3) APTT 40 H (26-36) SECONDS Sodium 135 L (137-145) mmol/L Potassium 3.9 (3.4-5.1) mmol/L Chloride 100 (98-107) mmol/L Carbon Dioxide 26 (22-32) mmol/L BUN 25 H (9-20) mg/dL Creatinine 1.30 H (0.66-1.25) mg/dL Estimated GFR 58 L (>60) mL/min BUN/Creatinine Ratio 19.2 (6-22) Glucose 180 H (80-110) mg/dL Calcium 8.7 (8.4-10.2) mg/dL Total Bilirubin 0.4 (0.2-1.3) mg/dL AST 20 (17-59) IU/L ALT 19 (<50) IU/L Alkaline Phosphatase 76 (38-126) U/L Total Creatine Kinase 25 L (55-170) U/L CK-MB (CK-2) TNP CK-MB (CK-2) Rel Index TNP Troponin I < 0.012 (0.01-0.034) ng/mL Total Protein 6.7 (6.3-8.2) g/dL Albumin 3.9 (3.5-5.0) g/dL Globulin 2.8 (1.7-4.1) g/dL Albumin/Globulin Ratio 1.4 (1.0-2.8) Lipase 68 (23-300) U/L 03/29/22 Range/Units 09:25 WBC (4.5-11.0) X10^3/uL RBC (4.5-5.9) X10^6/uL Hgb (13.5-17.5) g/dL Hct (41-53) % MCV (80-100) fL MCH (26-34) PG MCHC (30-36) % RDW (11.6-14.8) % Plt Count (150-400) X10^3/uL Neut % (Auto) (50-75) % Lymph % (Auto) (25-40) % [place] % (Auto) (3-14) % Eos % (Auto) (2-4) % Baso % (Auto) (0-2) % Neut # (Auto) (2795-6391) /uL Lymph # (Auto) (0749-6301) /uL [place] # (Auto) (0-900) /uL Eos # (Auto) (0-450) /uL Baso # (Auto) (0-100) /uL PT (10.1-12.7) SECONDS INR (0.9-1.3) APTT (26-36) SECONDS Sodium (137-145) mmol/L Potassium (3.4-5.1) mmol/L Chloride (98-107) mmol/L Carbon Dioxide (22-32) mmol/L BUN (9-20) mg/dL Creatinine (0.66-1.25) mg/dL Estimated GFR (>60) mL/min BUN/Creatinine Ratio (6-22) Glucose (80-110) mg/dL Calcium (8.4-10.2) mg/dL Total Bilirubin (0.2-1.3) mg/dL AST (17-59) IU/L ALT (<50) IU/L Alkaline Phosphatase (38-126) U/L Total Creatine Kinase (55-170) U/L CK-MB (CK-2) CK-MB (CK-2) Rel Index Troponin I < 0.012 (0.01-0.034) ng/mL Total Protein (6.3-8.2) g/dL Albumin (3.5-5.0) g/dL Globulin (1.7-4.1) g/dL Albumin/Globulin Ratio (1.0-2.8) Lipase (23-300) U/L Imaging Data CT scan - chest: Radiologist's Impression: [address] [address] [address] Scan Report Signed Patient: Erick Álvarez V MR#: [id number] : 1950 Acct:[id number] Age/Sex: 72 / M Date of Service: 03/29/22 Loc: ED Accession Number: [id number] ?? Procedure: CT angio chest PE protocol Ordering Provider: Juan Hayes D.O. PROCEDURE:? CT ANGIO CHEST PE PROTOCOL ? INDICATIONS:? Chest pain, shortness of breath, tachycardia ? TECHNIQUE:? After the administration of intravenous contrast, 2 mm thick sections acquired from the pulmonary apices to the posterior costophrenic angles.? 3-dimensional maximum intensity projection (MIP) coronal and sagittal reformats were then acquired through the thorax.? For radiation dose reduction, the following was used:? automated exposure control, adjustment of mA and/or kV according to patient size.? ? COMPARISON:? Outside Film, CT, CT ANGIO CHEST ABDOMEN PELVIS, 05/31/2018, 14:14.? [facility], , PERIPH VENOUS LOW EXTREM RT, 03/26/2022, 17:01.? [facility], CT, CT ABDOMEN PELVIS WITH CONTRAST, 12/24/2021, 13:25.? [facility], [place], [place] BONE SCAN WHOLE BODY, 12/24/2021, 15:12. ? FINDINGS:? Image quality:? Excellent.? ? Pulmonary arteries:? Pulmonary arteries are normal in size, and demonstrate no intraluminal filling defects to suggest central pulmonary embolism.? ? Lungs and pleura:? Lungs are clear.? No pleural effusions or pneumothorax.? Central and peripheral airways are patent.? ? Mediastinum: A percutaneously placed aortic valve prosthesis is seen.? At least moderate coronary artery calcification is seen.? Heart size is normal, without pe ricardial effusion.? No mediastinal or hilar adenopathy.? Thoracic aorta is normal in caliber and enhancement.? Esophagus is normal in caliber, without hiatal hernia.? ? Bones and chest wall:? No suspicious bony lesions.? Ribs and thoracic spine appear intact throughout.? Age-appropriate bony degenerative changes are seen. ? An AICD is seen.? Thyroid gland demonstrates no significant abnormality.? No axillary or supraclavicular adenopathy.? Incidental note is made of bilateral gynecomastia.? ? Abdomen:? The spleen is enlarged, measuring 15.5 cm AP. Incidental note is made of an accessory splenule along the negative for pulmonary embolism.? of the primary spleen. The visualized portions of the upper abdominal structures are otherwise unremarkable for imaging technique. ? ? ? IMPRESSION:? Negative for pulmonary embolism.? ? ? Incidental note is made of: AICD Percutaneously placed aortic valve replacement At least moderate coronary artery calcification Gynecomastia Splenomegaly Accessory splenule ? Dictated by: Yong Morley M.D. on 03/29/2022 at 7:35 ? ? Approved by: Yong Morley M.D. on 03/29/2022 at 7:39?? ECG Data Attestation: I personally reviewed and interpreted this ECG as follows: Interpretation: Atrially sensed Ventricular rate is 69 Normal QRS Occasional PVC No ST T wave changes MDM Narrative Medical decision making narrative: EKG is unremarkable, chest CT scan shows no signs of pulmonary embolism. No signs of pneumonia. Troponins negative x2. He has a known right lower extremity DVT. Is on Lovenox for this. Had a discussion with him regarding his symptoms. Will have him contact his primary provider for follow-up. He was given return precautions. He expressed understanding and agreement. Discharge Plan Departure Patient Disposition: Home Clinical Impression: Deep vein thrombosis of lower extremity, Atypical chest pain Instructions: DI for Atypical Chest Pain Activity Restrictions/Additional Instructions: Recommend that you continue to take all of your medications as directed and contact your primary provider for follow-up. Return to the emergency department for any new or worsening symptoms. Prescriptions: No Action pantoprazole tablet 40 mg PO QAM tolterodine [Detrol LA] 4 mg Capsule,Extended Release 24hr 4 mg PO Q24H Plavix tablet 75 mg PO QAM calcium carbonate 500 mg PO QAM metoprolol succinate 12.5 mg PO QAM Zoloft 100 mg PO QAM insulin glargine 100 unit/mL Cartridge 42 unit SUBCUT BEDTIME gabapentin 600 mg PO TID Mirapex 1 mg PO BEDTIME metformin 500 mg PO BID apixaban 5 mg PO BID insulin lispro 100 unit/mL Insulin Pen See Rx Instructions .ROUTE .COMPLEX Rx Instructions: sliding scale per hospital protocal furosemide [Lasix] 20 mg Tablet 40 mg PO QAM 30 Days Qty: 60 0RF bicalutamide 50 mg tablet 50 mg PO DAILY trazodone 50 mg tablet 50 mg PO BEDTIME ibuprofen 400 mg tablet 400 mg PO PRN PRN (Reason: Pain, Mild) spironolactone 25 mg Tablet 25 mg PO DAILY Qty: 30 0RF lisinopril 5 mg Tablet 2.5 mg PO DAILY Qty: 30 0RF doxycycline hyclate 100 mg capsule 100 mg PO BID Qty: 20 0RF ferrous sulfate [Feosol] 325 mg (65 mg iron) tablet 325 mg PO DAILY tramadol 50 mg tablet 50 mg PO Q8H PRN nystatin-triamcinolone Cream topical loperamide 2 mg tablet 2 mg PO Q6H PRN acetaminophen 325 mg capsule 325 mg PO ONCE PRN Referrals: Vandana Hart MD [Primary Care Provider] -
[2022-03-29 07:40] LABS: Add Manual Diff / Slide Review NO; Basophils Absolute Auto 100 /uL (0-100); Basophils Percent Auto 0.7 % (0-2); Eosinophils Absolute Auto 300 /uL (0-450); Eosinophils Percent Auto 3.3 % (2-4); Hematocrit 33.5 % (41-53); Hemoglobin 11.5 g/dL (13.5-17.5); Lymphocytes Absolute Auto 1400 /uL (1100-4500); Lymphocytes Percent Auto 15.2 % (25-40); Mean Corpuscular HGB Conc 34.3 % (30-36); Mean Corpuscular Hemoglobin 28.4 PG (26-34); Mean Corpuscular Volume 82.7 fL (80-100); Monocytes Absolute Auto 600 /uL (0-900); Monocytes Percent Auto 6.6 % (3-14); Neutrophils Absolute Auto 7000 /uL (1500-7000); Neutrophils Percent Auto 74.2 % (50-75); Platelet Count 183 X10^3/uL (150-400); Red Blood Cell Count 4.06 X10^6/uL (4.5-5.9); Red Cell Distribution Width 14.9 % (11.6-14.8); White Blood Cell Count 9.4 X10^3/uL (4.5-11.0)
[2022-03-29 07:48] LABS: INR 1.2 (0.9-1.3); Prothrombin Time 13.7 SECONDS (10.1-12.7)
[2022-03-29 07:50] LABS: PTT Partial Thromboplastin Tim 40 SECONDS (26-36)
[2022-03-29 07:54] LABS: Alanine Aminotransferase 19 IU/L (<50); Albumin 3.9 g/dL (3.5-5.0); Albumin Globulin Ratio 1.4 (1.0-2.8); Alkaline Phosphatase 76 U/L (38-126); Aspartate Aminotransferase 20 IU/L (17-59); BUN Creatinine Ratio 19.2 (6-22); Bilirubin Total 0.4 mg/dL (0.2-1.3); Blood Urea Nitrogen 25 mg/dL (9-20); Calcium 8.7 mg/dL (8.4-10.2); Carbon Dioxide 26 mmol/L (22-32); Chloride 100 mmol/L (98-107); Creatine Kinase 25 U/L (55-170); Estimated Glomerular Filt Rate 58 mL/min (>60); Globulin 2.8 g/dL (1.7-4.1); Glucose 180 mg/dL (80-110); HEMOLYSIS < 15 (0-50); Lipase 68 U/L (23-300); Potassium 3.9 mmol/L (3.4-5.1); Sodium 135 mmol/L (137-145); Total Protein 6.7 g/dL (6.3-8.2)
[2022-03-29 08:04] LABS: Troponin I < 0.012 ng/mL (0.01-0.034)
[2022-03-29 09:35] VITALS: PULSE 67; O2SAT 95
[2022-03-29 09:36] VITALS: BP 122/67; PULSE 67; O2SAT 96
[2022-03-29 10:00] VITALS: BP 114/55; PULSE 60; RESP 19; O2SAT 92
[2022-03-29 10:09] LABS: Troponin I < 0.012 ng/mL (0.01-0.034)
[2022-03-29 10:30] VITALS: BP 124/61; PULSE 60; RESP 17; O2SAT 92
== END 2022-03-29 11:10 | disposition home or self-care (01) ==
PROVIDERS: Emergency Provider Emergency Medicine; PCP Internal Medicine
DX: I82.501 Chronic embolism and thrombosis of unspecified deep veins of right lower extremity (principal); Z79.01 Long term (current) use of anticoagulants; R07.89 Other chest pain
CPT/HCPCS: 36415; 71275; 80053; 82550; 83690; 84484; 85025; 85610; 85730; 93005; 93010; 99284; Q9967

== ENCOUNTER → 2022-04-14 10:21 | Outpatient (CLI) | payer MEDICARE, MEDICAID, SELFPAY ==
[2020-10-23 13:01] VITALS: BMI 38.4
[2022-04-14 12:45] LABS: INR 1.3 (0.9-1.3); Prothrombin Time 15.1 SECONDS (10.1-12.7)
== END ==
PROVIDERS: PCP Internal Medicine; Referring Provider Internal Medicine; Visit Provider Internal Medicine
DX: Z79.01 Long term (current) use of anticoagulants (principal)
CPT/HCPCS: 36415; 85610

== ENCOUNTER 2022-04-20 12:53 | Emergency (ER) | payer MEDICARE, MEDICAID, SELFPAY ==
[2020-10-23 13:01] VITALS: BMI 38.4
[2022-04-20] VITALS (16 sets, daily range): BP systolic 110–150; BP diastolic 56–88; PULSE 61–82; RESP 16–24; TEMP 36.5; O2SAT 93–97; BMI 36.9
--- NOTE | 2022-04-20 12:58 | DI.RAD.S_ITS ---
PROCEDURE: XR CHEST 1V INDICATIONS: trauma TECHNIQUE: One view of the chest was acquired. COMPARISON: [facility], CR, XR CHEST 2V, 04/17/2021, 16:50. FINDINGS: Surgical changes and devices: Pacemaker and valve replacement. Lungs and pleura: Lungs are clear. No pleural effusions or pneumothorax. Mediastinum: Mediastinal contours appear normal. Heart size is enlarged. Bones and chest wall: No suspicious bony lesions. Overlying soft tissues appear unremarkable. IMPRESSION: No acute pulmonary process. No acute pulmonary process. Dictated by: Lindsey Holder M.D. on 04/20/2022 at 13:32 Approved by: Lindsey Holder M.D. on 04/20/2022 at 13:33
[2022-04-20 13:05] LABS: Add Manual Diff / Slide Review NO; Basophils Absolute Auto 100 /uL (0-100); Basophils Percent Auto 0.7 % (0-2); Eosinophils Absolute Auto 300 /uL (0-450); Eosinophils Percent Auto 2.8 % (2-4); Hematocrit 37.4 % (41-53); Hemoglobin 12.5 g/dL (13.5-17.5); Lymphocytes Absolute Auto 1200 /uL (1100-4500); Lymphocytes Percent Auto 11.5 % (25-40); Mean Corpuscular HGB Conc 33.4 % (30-36); Mean Corpuscular Hemoglobin 27.8 PG (26-34); Mean Corpuscular Volume 83.3 fL (80-100); Monocytes Absolute Auto 600 /uL (0-900); Monocytes Percent Auto 5.9 % (3-14); Neutrophils Absolute Auto 8000 /uL (1500-7000); Neutrophils Percent Auto 79.1 % (50-75); Platelet Count 222 X10^3/uL (150-400); Red Blood Cell Count 4.49 X10^6/uL (4.5-5.9); White Blood Cell Count 10.1 X10^3/uL (4.5-11.0)
[2022-04-20 13:08] LABS: INR 1.6 (0.9-1.3); Prothrombin Time 18.4 SECONDS (10.1-12.7)
--- NOTE | 2022-04-20 13:13 | DI.CT.S_ITS ---
PROCEDURE: CT HEAD/BRAIN WO CON INDICATIONS: Ground level fall on thinners hit head TECHNIQUE: Noncontrast 4.5 mm thick angled axial sections acquired from the foramen magnum to the vertex, with coronal and sagittal reformats. For radiation dose reduction, the following was used: automated exposure control, adjustment of mA and/or kV according to patient size. COMPARISON: [facility], CT, CT HEAD/BRAIN WO CON, 11/25/2020, 10:34. FINDINGS: Image quality: Excellent. CSF spaces: Basal cisterns are patent. No extra-axial fluid collections. The ventricles are symmetric in size and shape. Brain: No intracranial bleeds or masses. There is cerebral volume loss for age, with resultant ventricular and sulcal prominence. There are periventricular and deep white matter chronic small vessel ischemic changes. There is intracranial internal carotid artery atherosclerosis. Skull and face: Calvarium and visualized facial bones appear intact, without suspicious lesions. Sinuses: Visualized sinuses and mastoids are clear. IMPRESSION: 1. No acute intracranial process. 2. Moderate atrophy and chronic microvascular ischemic changes. Dictated by: Lindsey Holder M.D. on 04/20/2022 at 13:29 Approved by: Lindsey Holder M.D. on 04/20/2022 at 13:32
--- NOTE | 2022-04-20 13:13 | DI.CT.S_ITS ---
PROCEDURE: CT CERVICAL SPINE WO CON INDICATIONS: Ground level fall on thinners hit head TECHNIQUE: Noncontrast 3 mm thick sections acquired from the skull base to the T4 level. Sagittal and coronal reformats were then constructed. For radiation dose reduction, the following was used: automated exposure control, adjustment of mA and/or kV according to patient size. COMPARISON: [facility], CT, CT HEAD/BRAIN WO CON, 04/20/2022, 12:53. FINDINGS: Image quality: Excellent. Bones: No fractures or dislocations. Visualized superior ribs are intact. Multilevel degenerative changes are present. Soft tissues: Prevertebral soft tissues are normal in thickness. No paravertebral hematomas. No apical pneumothoraces. IMPRESSION: No visualized fracture. Dictated by: Lindsey Holder M.D. on 04/20/2022 at 13:40 Approved by: Lindsey Holder M.D. on 04/20/2022 at 13:41
[2022-04-20 13:17] LABS: Alanine Aminotransferase 25 IU/L (<50); Albumin 4.3 g/dL (3.5-5.0); Albumin Globulin Ratio 1.4 (1.0-2.8); Alkaline Phosphatase 87 U/L (38-126); Aspartate Aminotransferase 24 IU/L (17-59); Bilirubin Total 0.4 mg/dL (0.2-1.3); Blood Urea Nitrogen 23 mg/dL (9-20); Calcium 8.9 mg/dL (8.4-10.2); Carbon Dioxide 24 mmol/L (22-32); Chloride 99 mmol/L (98-107); Creatine Kinase 41 U/L (55-170); Estimated Glomerular Filt Rate 55 mL/min (>60); Ethanol (ETOH) < 10 mg/dL; Globulin 3.1 g/dL (1.7-4.1); Glucose 196 mg/dL (80-110); HEMOLYSIS < 15 (0-50); Lipase 66 U/L (23-300); Potassium 4.4 mmol/L (3.4-5.1); Sodium 136 mmol/L (137-145); Total Protein 7.4 g/dL (6.3-8.2)
[2022-04-20 13:28] LABS: Troponin I < 0.012 ng/mL (0.01-0.034)
[2022-04-20 14:01] LABS: COVID19 -Nasal RAPID Negative (Negative)
[2022-04-20 14:09] LABS: NT-proBNP (BNP-Adult 18+) 89 pg/mL (<125)
--- NOTE | 2022-04-20 14:23 | DI.CT.S_ITS ---
PROCEDURE: CT ANGIO CHEST PE PROTOCOL INDICATIONS: syncope, +DVT TECHNIQUE: After the administration of intravenous contrast, 2 mm thick sections acquired from the pulmonary apices to the posterior costophrenic angles. 3-dimensional maximum intensity projection (MIP) coronal and sagittal reformats were then acquired through the thorax. For radiation dose reduction, the following was used: automated exposure control, adjustment of mA and/or kV according to patient size. COMPARISON: [facility], CT, CT ANGIO CHEST PE PROTOCOL, 03/29/2022, 8:21. FINDINGS: Image quality: Excellent. Pulmonary arteries: Pulmonary arteries are normal in size, and demonstrate no intraluminal filling defects to suggest central pulmonary embolism. Lungs and pleura: Lungs are clear. No pleural effusions or pneumothorax. Central and peripheral airways are patent. Mediastinum: Heart size is normal, without pericardial effusion. No mediastinal or hilar adenopathy. Thoracic aorta is normal in caliber and enhancement. Esophagus is normal in caliber, with mild hiatal hernia. Bones and chest wall: No suspicious bony lesions. Ribs and thoracic spine appear intact throughout. Thyroid gland is unremarkable. No axillary or supraclavicular adenopathy. Abdomen: Visualized upper abdominal solid organs appear normal in the early arterial phase of enhancement. IMPRESSION: No pulmonary embolism. No effusions or consolidations. Dictated by: Lindsey Holder M.D. on 04/20/2022 at 15:21 Approved by: Lindsey Holder M.D. on 04/20/2022 at 15:31
[2022-04-20 17:05] LABS: Creatine Kinase 34 U/L (55-170); Troponin I < 0.012 ng/mL (0.01-0.034)
--- NOTE | 2022-04-20 17:09 | ED_ITS ---
HPI - Fall <Nury Cardona PA-C - Last Filed: 04/20/22 18:20> General Chief Complaint: Fall Stated Complaint: Syncope Time Seen by Provider: 04/20/22 12:57 Source: patient and EMS Mode of arrival: EMS History of Present Illness HPI Narrative: 72-year-old male with past medical history CHF, diabetes, GERD, AICD presents to the ED status post a fall, syncope. Patient states he was trying to get ready this morning to go to the doctor, when he felt a little lightheaded, and the next thing he knew was that the folks in the assisted living were helping him up. Patient states that he is on Coumadin now, was switched about 2 weeks ago from Lovenox to Coumadin for blood clots in his right leg. Patient states that he is feeling somewhat fatigued, was feeling a little fatigued yesterday as well. Denies any other symptoms including fevers, chills, chest pain, shortness of breath, abdominal pain, dysuria, flank pain. Patient states that his blood sugars yesterday were lower than usual. Patient usually runs between 175-200, however his blood sugar was 140 yesterday, which is why he thinks he might have felt fatigued and lightheaded. Patient was diagnosed with right leg DVTs 3 weeks ago. Patient was initially started on Lovenox, however patient states that he was switched to warfarin 2 weeks ago. Related Data Home Medications Medication Instructions Recorded Confirmed Mirapex 1 mg PO BEDTIME 09/29/20 04/22/21 Plavix 75 mg PO QAM 09/29/20 04/22/21 Zoloft 100 mg PO QAM 09/29/20 04/22/21 apixaban 5 mg PO BID 09/29/20 04/22/21 calcium carbonate 500 mg PO QAM 09/29/20 04/22/21 gabapentin 600 mg PO TID 09/29/20 04/22/21 insulin glargine 100 unit/mL 42 unit SUBCUT BEDTIME 09/29/20 04/22/21 subcutaneous cartridge insulin lispro 100 unit/mL See Rx Instructions .Route .COMPLEX 09/29/20 04/22/21 subcutaneous pen metformin 500 mg PO BID 09/29/20 04/22/21 metoprolol succinate 12.5 mg PO QAM 09/29/20 04/22/21 pantoprazole 40 mg PO QAM 09/29/20 04/22/21 tolterodine 4 mg capsule,extended 4 mg PO Q24H 09/29/20 04/22/21 release 24 hr (Detrol LA) bicalutamide 50 mg tablet 50 mg PO DAILY 10/23/20 04/22/21 ibuprofen 400 mg tablet 400 mg PO PRN PRN Pain, Mild 10/23/20 04/22/21 trazodone 50 mg tablet 50 mg PO BEDTIME 10/23/20 04/22/21 acetaminophen 325 mg capsule 325 mg PO ONCE PRN 04/22/21 04/22/21 ferrous sulfate 325 mg (65 mg 325 mg PO DAILY 04/22/21 04/22/21 iron) tablet (Feosol) loperamide 2 mg tablet 2 mg PO Q6H PRN 04/22/21 04/22/21 nystatin-triamcinolone topical applic topical 04/22/21 04/22/21 cream tramadol 50 mg tablet 50 mg PO Q8H PRN 04/22/21 04/22/21 Previous Rx's Medication Instructions Recorded furosemide 20 mg tablet (Lasix) 40 mg PO QAM 30 days #60 tabs 09/30/20 lisinopril 5 mg tablet 2.5 mg PO DAILY #30 tabs 10/25/20 spironolactone 25 mg tablet 25 mg PO DAILY #30 tabs 10/25/20 doxycycline hyclate 100 mg capsule 100 mg PO BID #20 caps 04/17/21 cephalexin 500 mg capsule 500 mg PO QID 5 days #20 caps 04/20/22 Allergies Allergy/AdvReac Type Severity Reaction Status Date / Time carbidopa Allergy Verified 04/22/21 13:02 crab Allergy Verified 04/22/21 13:02 morphine Allergy Verified 04/22/21 13:02 Review of Systems <Nury Cardona PA-C - Last Filed: 04/20/22 18:20> Review of Systems ROS Unobtainable: All systems reviewed & are unremarkable except as noted in HPI and below Constitutional Constitutional: Denies chills, Reports fatigue, Denies fever(s), Denies frequent falls, Denies lethargy and Denies weakness Comments: syncope Eyes Eyes: Denies change in vision, Denies eye discharge, Denies irritation and D enies loss of vision ENT Ears, Nose, Mouth, and Throat: Denies change in voice, Reports dizziness, Denies neck pain, Denies sore throat and Denies throat swelling Cardiovascular Cardiovascular: Denies chest pain, Denies irregular heart rhythm, Reports leg edema, Reports lightheadedness, Denies palpitations, Denies dyspnea, Denies dyspnea on exertion and Denies orthopnea Respiratory Respiratory: Denies cough, Denies dyspnea, Denies dyspnea on exertion and Denies wheezing Gastrointestinal Gastrointestinal: Denies abdominal pain, Denies change in bowel habits, Denies diarrhea, Denies nausea and Denies vomiting Genitourinary Genitourinary: Denies hematuria, Denies flank pain, Denies urinary incontinence and Denies urinary urgency Musculoskeletal Musculoskeletal: Denies back pain, Denies muscle weakness, Denies neck pain, Denies numbness and Denies tingling Comments: Right lower leg swelling, redness Integumentary/Breasts Skin/Breast: Denies pruritus, Denies erythema, Denies rash and Denies wounds Neurologic Neurologic: Denies behavioral changes, Denies confusion, Reports dizziness, Denies frequent falls, Denies loss of vision, Denies numbness, Denies tingling and Denies weakness Psychiatric Psychiatric: Denies anxiety, Denies behavioral changes, Denies confusion, Denies depression, Denies homicidal ideation and Denies suicidal ideation Endocrine Endocrine: Reports fatigue, Denies flushing and Denies palpitations Hematologic/Lymphatic Hematologic/Lymphatic: Denies easy bruising Allergic/Immunologic Allergic/Immunologic: Denies urticaria, Denies throat swelling and Denies wheezing Patient History <Nury Cardona PA-C - Last Filed: 04/20/22 18:20> Medical History Congestive heart failure Diabetes GERD (gastroesophageal reflux disease) Pacemaker Surgical History H/O aortic valve replacement History of back surgery Family History Mother Coronary artery disease involving bypass graft of transpla nted heart Cancer Social History household members: none Smoking Status: Former smoker Smoking Status: Former smoker tobacco type: cigarettes alcohol intake frequency: holidays/special occasions only Substance Use Type: former substance user Exam <ARMANDO Lira Last Filed: 04/20/22 18:20> Narrative Exam Narrative: Const General:?cooperative, healthy appearing and comfortable HENNM Head:?normal to inspection Ears:?hearing grossly normal bilaterally Nose:?external nose normal Face and sinus:?normal facial exam and sinuses nontender Mouth:?oral mucosae normal Throat:?posterior oropharynx normal Eyes General:?appearance normal, both eyes and all related structures Neck Neck:?normal visual inspection and no lymphadenopathy noted Resp Effort & Inspection:?normal respiratory effort Auscultation:?clear to auscultation bilaterally Cardio Rate:?regular rate Rhythm:?regular rhythm Integumentary Right lower leg swelling, erythema. Pulses intact bilaterally. Patient is neurovascularly intact. Neuro General:?patient alert, patient awake and patient oriented x3 Initial Vital Signs Initial Vital Signs: Vital Signs Temperature 97.7 F 04/20/22 12:52 Pulse Rate 82 04/20/22 12:52 Respiratory Rate 16 04/20/22 12:52 Blood Pressure 110/88 04/20/22 12:52 Pulse Oximetry 96 04/20/22 12:52 Oxygen Delivery Method 04/20/22 12:52 <Stefan Calloway DO - Last Filed: 04/23/22 07:11> Initial Vital Signs Initial Vital Signs: Vital Signs Temperature 97.7 F 04/20/22 12:52 Pulse Rate 82 04/20/22 12:52 Respiratory Rate 16 04/20/22 12:52 Blood Pressure 110/88 04/20/22 12:52 Pulse Oximetry 96 04/20/22 12:52 Oxygen Delivery Method 04/20/22 12:52 Course <ARMANDO Lira Last Filed: 04/20/22 18:20> Orders Ordered: ED Orders 04/20/22 12:50 BNP [NT-proBNP (BNP-Adult 18+)] Stat Complete Blood Count AUTO DIFF Stat Comprehensive Metabolic Panel Stat Ethanol (ETOH) Stat Lipase Stat Prothrombin Time INR Stat Troponin & CK Cardiac Panel Stat 04/20/22 12:57 EKG-12 Lead Stat 04/20/22 12:58 XR chest 1V Stat 04/20/22 13:13 CT cervical spine wo con Stat CT head/brain wo con Stat 04/20/22 13:22 Type and Screen Stat 04/20/22 13:25 COVID19 -Nasal RAPID/Pre-Proc Stat 04/20/22 14:23 CT angio chest PE protocol Stat 04/20/22 16:07 EKG-12 Lead Stat 04/20/22 16:21 Troponin & CK Cardiac Panel Stat Vital Signs Vital signs: Vital Signs - 8 hr 04/20/22 12:52 04/20/22 13:00 04/20/22 13:01 Temperature 97.7 F Pulse Rate 82 74 Respiratory Rate 16 Blood Pressure 110/88 110/58 L Pulse Oximetry 96 94 Oxygen Delivery Method Room Air 04/20/22 13:01 04/20/22 13:30 04/20/22 13:30 Temperature Pulse Rate 74 66 Respiratory Rate 20 Blood Pressure 123/60 Pulse Oximetry 94 93 Oxygen Delivery Method Room Air 04/20/22 14:00 04/20/22 14:01 04/20/22 14:01 Temperature Pulse Rate 65 65 Respiratory Rate 19 20 Blood Pressure 117/56 L Pulse Oximetry 93 95 Oxygen Delivery Method 04/20/22 14:30 04/20/22 15:02 04/20/22 15:03 Temperature Pulse Rate 73 66 Respiratory Rate Blood Pressure 150/75 H Pulse Oximetry 96 97 Oxygen Delivery Method 04/20/22 15:03 04/20/22 15:30 04/20/22 15:31 Temperature Pulse Rate 69 64 64 Respiratory Rate Blood Pressure Pulse Oximetry 97 94 94 Oxygen Delivery Method 04/20/22 15:31 04/20/22 16:00 04/20/22 16:01 Temperature Pulse Rate 61 Respiratory Rate 17 Blood Pressure 131/58 L 142/64 H Pulse Oximetry 94 Oxygen Delivery Method 04/20/22 16:01 04/20/22 16:30 04/20/22 17:00 Temperature Pulse Rate 62 62 63 Respiratory Rate 18 19 19 Blood Pressure Pulse Oximetry 94 93 95 Oxygen Delivery Method 04/20/22 17:30 Temperature Pulse Rate 65 Respiratory Rate 24 Blood Pressure 146/68 H Pulse Oximetry 93 Oxygen Delivery Method <Stefan Calloway, DO - Last Filed: 04/23/22 07:11> Orders Ordered: ED Orders 04/20/22 12:50 BNP [NT-proBNP (BNP-Adult 18+)] Stat Complete Blood Count AUTO DIFF Stat Comprehensive Metabolic Panel Stat Ethanol (ETOH) Stat Lipase Stat Prothrombin Time INR Stat Troponin & CK Cardiac Panel Stat 04/20/22 12:57 EKG-12 Lead Stat 04/20/22 12:58 XR chest 1V Stat 04/20/22 13:13 CT cervical spine wo con Stat CT head/brain wo con Stat 04/20/22 13:22 Type and Screen Stat 04/20/22 13:25 COVID19 -Nasal RAPID/Pre-Proc Stat 04/20/22 14:23 CT angio chest PE protocol Stat 04/20/22 16:07 EKG-12 Lead Stat 04/20/22 16:21 Troponin & CK Cardiac Panel Stat Vital Signs Vital signs: Vital Signs - 8 hr 04/20/22 12:52 04/20/22 13:00 04/20/22 13:01 Temperature 97.7 F Pulse Rate 82 74 Respiratory Rate 16 Blood Pressure 110/88 110/58 L Pulse Oximetry 96 94 Oxygen Delivery Method Room Air 04/20/22 13:01 04/20/22 13:30 04/20/22 13:30 Temperature Pulse Rate 74 66 Respiratory Rate 20 Blood Pressure 123/60 Pulse Oximetry 94 93 Oxygen Delivery Method Room Air 04/20/22 14:00 04/20/22 14:01 04/20/22 14:01 Temperature Pulse Rate 65 65 Respiratory Rate 19 20 Blood Pressure 117/56 L Pulse Oximetry 93 95 Oxygen Delivery Method 04/20/22 14:30 04/20/22 15:02 04/20/22 15:03 Temperature Pulse Rate 73 66 Respiratory Rate Blood Pressure 150/75 H Pulse Oximetry 96 97 Oxygen Delivery Method 04/20/22 15:03 04/20/22 15:30 04/20/22 15:31 Temperature Pulse Rate 69 64 64 Respiratory Rate Blood Pressure Pulse Oximetry 97 94 94 Oxygen Delivery Method 04/20/22 15:31 04/20/22 16:00 04/20/22 16:01 Temperature Pulse Rate 61 Respiratory Rate 17 Blood Pressure 131/58 L 142/64 H Pulse Oximetry 94 Oxygen Delivery Method 04/20/22 16:01 04/20/22 16:30 04/20/22 17:00 Temperature Pulse Rate 62 62 63 Respiratory Rate 18 19 19 Blood Pressure Pulse Oximetry 94 93 95 Oxygen Delivery Method 04/20/22 17:30 Temperature Pulse Rate 65 Respiratory Rate 24 Blood Pressure 146/68 H Pulse Oximetry 93 Oxygen Delivery Method MDM - Fall <Nury Cardona PA-C - Last Filed: 04/20/22 18:20> Lab Data Result diagrams: 04/20/22 12:50 04/20/22 12:50 Labs: Lab Results 04/20/22 04/20/22 04/20/22 Range/Units 12:50 12:50 12:50 WBC 10.1 (4.5-11.0) X10^3/uL RBC 4.49 L (4.5-5.9) X10^6/uL Hgb 12.5 L (13.5-17.5) g/dL Hct 37.4 L (41-53) % MCV 83.3 (80-100) fL MCH 27.8 (26-34) PG MCHC 33.4 (30-36) % RDW 15.0 H (11.6-14.8) % Plt Count 222 (150-400) X10^3/uL Neut % (Auto) 79.1 H (50-75) % Lymph % (Auto) 11.5 L (25-40) % [place] % (Auto) 5.9 (3-14) % Eos % (Auto) 2.8 (2-4) % Baso % (Auto) 0.7 (0-2) % Neut # (Auto) 8000 H (7955-3024) /uL Lymph # (Auto) 1200 (8004-5045) /uL [place] # (Auto) 600 (0-900) /uL Eos # (Auto) 300 (0-450) /uL Baso # (Auto) 100 (0-100) /uL PT 18.4 H (10.1-12.7) SECONDS INR 1.6 H (0.9-1.3) Sodium 136 L (137-145) mmol/L Potassium 4.4 (3.4-5.1) mmol/L Chloride 99 (98-107) mmol/L Carbon Dioxide 24 (22-32) mmol/L BUN 23 H (9-20) mg/dL Creatinine 1.35 H (0.66-1.25) mg/dL Estimated GFR 55 L (>60) mL/min BUN/Creatinine Ratio 17.0 (6-22) Glucose 196 H (80-110) mg/dL Calcium 8.9 (8.4-10.2) mg/dL Total Bilirubin 0.4 (0.2-1.3) mg/dL AST 24 (17-59) IU/L ALT 25 (<50) IU/L Alkaline Phosphatase 87 (38-126) U/L Total Creatine Kinase 41 L (55-170) U/L CK-MB (CK-2) TNP CK-MB (CK-2) Rel Index TNP Troponin I < 0.012 (0.01-0.034) ng/mL NT-Pro-B Natriuret Pep (<125) pg/mL Total Protein 7.4 (6.3-8.2) g/dL Albumin 4.3 (3.5-5.0) g/dL Globulin 3.1 (1.7-4.1) g/dL Albumin/Globulin Ratio 1.4 (1.0-2.8) Lipase 66 (23-300) U/L Ethyl Alcohol < 10 ( - 10) mg/dL SARS-CoV-2 (PCR) (Negative) Blood Type Antibody Screen 04/20/22 04/20/22 04/20/22 Range/Units 12:50 13:22 13:25 WBC (4.5-11.0) X10^3/uL RBC (4.5-5.9) X10^6/uL Hgb (13.5-17.5) g/dL Hct (41-53) % MCV (80-100) fL MCH (26-34) PG MCHC (30-36) % RDW (11.6-14.8) % Plt Count (150-400) X10^3/uL Neut % (Auto) (50-75) % Lymph % (Auto) (25-40) % [place] % (Auto) (3-14) % Eos % (Auto) (2-4) % Baso % (Auto) (0-2) % Neut # (Auto) (3819-4530) /uL Lymph # (Auto) (0815-1687) /uL [place] # (Auto) (0-900) /uL Eos # (Auto) (0-450) /uL Baso # (Auto) (0-100) /uL PT (10.1-12.7) SECONDS INR (0.9-1.3) Sodium (137-145) mmol/L Potassium (3.4-5.1) mmol/L Chloride (98-107) mmol/L Carbon Dioxide (22-32) mmol/L BUN (9-20) mg/dL Creatinine (0.66-1.25) mg/dL Estimated GFR (>60) mL/min BUN/Creatinine Ratio (6-22) Glucose (80-110) mg/dL Calcium (8.4-10.2) mg/dL Total Bilirubin (0.2-1.3) mg/dL AST (17-59) IU/L ALT (<50) IU/L Alkaline Phosphatase (38-126) U/L Total Creatine Kinase (55-170) U/L CK-MB (CK-2) CK-MB (CK-2) Rel Index Troponin I (0.01-0.034) ng/mL NT-Pro-B Natriuret Pep 89 (<125) pg/mL Total Protein (6.3-8.2) g/dL Albumin (3.5-5.0) g/dL Globulin (1.7-4.1) g/dL Albumin/Globulin Ratio (1.0-2.8) Lipase (23-300) U/L Ethyl Alcohol ( - 10) mg/dL SARS-CoV-2 (PCR) Negative (Negative) Blood Type O Positive Antibody Screen Negative 04/20/22 Range/Units 16:21 WBC (4.5-11.0) X10^3/uL RBC (4.5-5.9) X10^6/uL Hgb (13.5-17.5) g/dL Hct (41-53) % MCV (80-100) fL MCH (26-34) PG MCHC (30-36) % RDW (11.6-14.8) % Plt Count (150-400) X10^3/uL Neut % (Auto) (50-75) % Lymph % (Auto) (25-40) % [place] % (Auto) (3-14) % Eos % (Auto) (2-4) % Baso % (Auto) (0-2) % Neut # (Auto) (1863-7042) /uL Lymph # (Auto) (4458-8283) /uL [place] # (Auto) (0-900) /uL Eos # (Auto) (0-450) /uL Baso # (Auto) (0-100) /uL PT (10.1-12.7) SECONDS INR (0.9-1.3) Sodium (137-145) mmol/L Potassium (3.4-5.1) mmol/L Chloride (98-107) mmol/L Carbon Dioxide (22-32) mmol/L BUN (9-20) mg/dL Creatinine (0.66-1.25) mg/dL Estimated GFR (>60) mL/min BUN/Creatinine Ratio (6-22) Glucose (80-110) mg/dL Calcium (8.4-10.2) mg/dL Total Bilirubin (0.2-1.3) mg/dL AST (17-59) IU/L ALT (<50) IU/L Alkaline Phosphatase (38-126) U/L Total Creatine Kinase 34 L (55-170) U/L CK-MB (CK-2) TNP CK-MB (CK-2) Rel Index TNP Troponin I < 0.012 (0.01-0.034) ng/mL NT-Pro-B Natriuret Pep (<125) pg/mL Total Protein (6.3-8.2) g/dL Albumin (3.5-5.0) g/dL Globulin (1.7-4.1) g/dL Albumin/Globulin Ratio (1.0-2.8) Lipase (23-300) U/L Ethyl Alcohol ( - 10) mg/dL SARS-CoV-2 (PCR) (Negative) Blood Type Antibody Screen Point of Care Testing Glucose POC 196 Urine Dip Bedside Urine Glucose Negative Bedside Urine Bilirubin - Negative Bedside Urine Ketone - Negative Urine Specific [place] 1.015 Bedside Urine Occult Blood - Negative Bedside Urine pH 6.0 Bedside Urine Protein - Negative Bedside Urine Urobilinogen - Negative Bedside Urine Nitrite - Negative Bedside Urine Leukocytes - Negative Esterase Imaging Data CT scan - chest: Radiologist's Impression: PROCEDURE:? CT ANGIO CHEST PE PROTOCOL ? INDICATIONS:? syncope, +DVT ? TECHNIQUE:? After the administration of intravenous contrast, 2 mm thick sections acquired from the pulmonary apices to the posterior costophrenic angles.? 3-dimensional maximum intensity projection (MIP) coronal and sagittal reformats were then acquired through the thorax.? For radiation dose reduction, the following was used:? automated exposure control, adjustment of mA and/or kV according to patient size.? ? COMPARISON:? [facility], CT, CT ANGIO CHEST PE PROTOCOL, 03/29/2022, 8:21. ? FINDINGS:? Image quality:? Excellent.? ? Pulmonary arteries:? Pulmonary arteries are normal in size, and demonstrate no intraluminal filling defects to suggest central pulmonary embolism.? ? Lungs and pleura:? Lungs are clear.? No pleural effusions or pneumothorax.? Central and peripheral airways are patent.? ? Mediastinum:? Heart size is normal, without pericardial effusion.? No mediastinal or hilar adenopathy.? Thoracic aorta is normal in caliber and enhancement.? Esophagus is normal in caliber, with mild hiatal hernia.? ? Bones and chest wall:? No suspicious bony lesions.? Ribs and thoracic spine appear intact throughout.? Thyroid gland is unremarkable.? No axillary or supraclavicular adenopathy.? ? Abdomen:? Visualized upper abdominal solid organs appear normal in the early arterial phase of enhancement.? ? IMPRESSION:? ? No pulmonary embolism. ? No effusions or consolidations.? ? ? Dictated by: Lindsey Holder M.D. on 04/20/2022 at 15:21 ? ? Approved by: Lindsey Holder M.D. on 04/20/2022 at 15:31 ? CT scan - head: Radiologist's Impression: PROCEDURE:? CT HEAD/BRAIN WO CON ? INDICATIONS:? Ground level fall on thinners hit head ? TECHNIQUE:? Noncontrast 4.5 mm thick angled axial sections acquired from the foramen magnum to the vertex, with coronal and sagittal reformats.? For radiation dose reduction, the following was used:? automated exposure control, adjustment of mA and/or kV according to patient size.? ? COMPARISON:? [facility], CT, CT HEAD/BRAIN WO CON, 11/25/2020, 10:34. ? FINDINGS:? Image quality:? Excellent.? ? CSF spaces:? Basal cisterns are patent.? No extra-axial fluid collections.? The ventricles are symmetric in size and shape.? ? Brain:? No intracranial bleeds or masses.? There is cerebral volume loss for age, with resultant ventricular and sulcal prominence.? There are periventricular and deep white matter chronic small vessel ischemic changes.? There is intracranial internal carotid artery atherosclerosis.? ? Skull and face:? Calvarium and visualized facial bones appear intact, without suspicious lesions.? ? Sinuses:? Visualized sinuses and mastoids are clear.? ? IMPRESSION:? 1. No acute intracranial process. ? 2. Moderate atrophy and chronic microvascular ischemic changes. ? ? ? Dictated by: Lindsey Holder M.D. on 04/20/2022 at 13:29 ? ? Approved by: Lindsey Holder M.D. on 04/20/2022 at 13:32? CT - cervical spine: Radiologist's Impression: PROCEDURE:? CT CERVICAL SPINE WO CON ? INDICATIONS:? Ground level fall on thinners hit head ? TECHNIQUE:? Noncontrast 3 mm thick sections acquired from the skull base to the T4 level.? Sagittal and coronal reformats were then constructed.? For radiation dose reduction, the following was used:? automated exposure control, adjustment of mA and/or kV according to patient size.? ? COMPARISON:? [facility], CT, CT HEAD/BRAIN WO CON, 04/20/2022, 12:53. ? FINDINGS:? Image quality:? Excellent.? ? Bones:? No fractures or dislocations.? Visualized superior ribs are intact.? Multilevel degenerative changes are present. ? Soft tissues:? Prevertebral soft tissues are normal in thickness.? No paravertebral hematomas.? No apical pneumothoraces.? ? ? IMPRESSION:? No visualized fracture. ? Dictated by: Lindsey Holder M.D. on 04/20/2022 at 13:40 ? ? Approved by: Lindsey Holder M.D. on 04/20/2022 at 13:41 ? MDM Narrative Medical decision making narrative: 72-year-old male with past medical history CHF, diabetes, GERD, AICD presents to the ED status post a fall, syncope. Concern for cardiac etiology versus de hydration versus UTI versus PE versus pneumonia versus intracranial hemorrhage versus fractures. Will obtain labs, UA, CT head, CT C-spine, EKG, chest x-ray, CT PE. Workup was largely unremarkable. Concern for cellulitis on right lower leg. Will prescribe antibiotics. ED return precautions were discussed with patient. Patient verbalized understanding. <Stefan Calloway DO - Last Filed: 04/23/22 07:11> Lab Data Labs: Lab Results 04/20/22 04/20/22 04/20/22 Range/Units 12:50 12:50 12:50 WBC 10.1 (4.5-11.0) X10^3/uL RBC 4.49 L (4.5-5.9) X10^6/uL Hgb 12.5 L (13.5-17.5) g/dL Hct 37.4 L (41-53) % MCV 83.3 (80-100) fL MCH 27.8 (26-34) PG MCHC 33.4 (30-36) % RDW 15.0 H (11.6-14.8) % Plt Count 222 (150-400) X10^3/uL Neut % (Auto) 79.1 H (50-75) % Lymph % (Auto) 11.5 L (25-40) % [place] % (Auto) 5.9 (3-14) % Eos % (Auto) 2.8 (2-4) % Baso % (Auto) 0.7 (0-2) % Neut # (Auto) 8000 H (4736-5086) /uL Lymph # (Auto) 1200 (1055-6208) /uL [place] # (Auto) 600 (0-900) /uL Eos # (Auto) 300 (0-450) /uL Baso # (Auto) 100 (0-100) /uL PT 18.4 H (10.1-12.7) SECONDS INR 1.6 H (0.9-1.3) Sodium 136 L (137-145) mmol/L Potassium 4.4 (3.4-5.1) mmol/L Chloride 99 (98-107) mmol/L Carbon Dioxide 24 (22-32) mmol/L BUN 23 H (9-20) mg/dL Creatinine 1.35 H (0.66-1.25) mg/dL Estimated GFR 55 L (>60) mL/min BUN/Creatinine Ratio 17.0 (6-22) Glucose 196 H (80-110) mg/dL Calcium 8.9 (8.4-10.2) mg/dL Total Bilirubin 0.4 (0.2-1.3) mg/dL AST 24 (17-59) IU/L ALT 25 (<50) IU/L Alkaline Phosphatase 87 (38-126) U/L Total Creatine Kinase 41 L (55-170) U/L CK-MB (CK-2) TNP CK-MB (CK-2) Rel Index TNP Troponin I < 0.012 (0.01-0.034) ng/mL NT-Pro-B Natriuret Pep (<125) pg/mL Total Protein 7.4 (6.3-8.2) g/dL Albumin 4.3 (3.5-5.0) g/dL Globulin 3.1 (1.7-4.1) g/dL Albumin/Globulin Ratio 1.4 (1.0-2.8) Lipase 66 (23-300) U/L Ethyl Alcohol < 10 ( - 10) mg/dL SARS-CoV-2 (PCR) (Negative) Blood Type Antibody Screen 04/20/22 04/20/22 04/20/22 Range/Units 12:50 13:22 13:25 WBC (4.5-11.0) X10^3/uL RBC (4.5-5.9) X10^6/uL Hgb (13.5-17.5) g/dL Hct (41-53) % MCV (80-100) fL MCH (26-34) PG MCHC (30-36) % RDW (11.6-14.8) % Plt Count (150-400) X10^3/uL Neut % (Auto) (50-75) % Lymph % (Auto) (25-40) % [place] % (Auto) (3-14) % Eos % (Auto) (2-4) % Baso % (Auto) (0-2) % Neut # (Auto) (5312-8180) /uL Lymph # (Auto) (3705-0241) /uL [place] # (Auto) (0-900) /uL Eos # (Auto) (0-450) /uL Baso # (Auto) (0-100) /uL PT (10.1-12.7) SECONDS INR (0.9-1.3) Sodium (137-145) mmol/L Potassium (3.4-5.1) mmol/L Chloride (98-107) mmol/L Carbon Dioxide (22-32) mmol/L BUN (9-20) mg/dL Creatinine (0.66-1.25) mg/dL Estimated GFR (>60) mL/min BUN/Creatinine Ratio (6-22) Glucose (80-110) mg/dL Calcium (8.4-10.2) mg/dL Total Bilirubin (0.2-1.3) mg/dL AST (17-59) IU/L ALT (<50) IU/L Alkaline Phosphatase (38-126) U/L Total Creatine Kinase (55-170) U/L CK-MB (CK-2) CK-MB (CK-2) Rel Index Troponin I (0.01-0.034) ng/mL NT-Pro-B Natriuret Pep 89 (<125) pg/mL Total Protein (6.3-8.2) g/dL Albumin (3.5-5.0) g/dL Globulin (1.7-4.1) g/dL Albumin/Globulin Ratio (1.0-2.8) Lipase (23-300) U/L Ethyl Alcohol ( - 10) mg/dL SARS-CoV-2 (PCR) Negative (Negative) Blood Type O Positive Antibody Screen Negative 04/20/22 Range/Units 16:21 WBC (4.5-11.0) X10^3/uL RBC (4.5-5.9) X10^6/uL Hgb (13.5-17.5) g/dL Hct (41-53) % MCV (80-100) fL MCH (26-34) PG MCHC (30-36) % RDW (11.6-14.8) % Plt Count (150-400) X10^3/uL Neut % (Auto) (50-75) % Lymph % (Auto) (25-40) % [place] % (Auto) (3-14) % Eos % (Auto) (2-4) % Baso % (Auto) (0-2) % Neut # (Auto) (4463-6641) /uL Lymph # (Auto) (0978-6861) /uL [place] # (Auto) (0-900) /uL Eos # (Auto) (0-450) /uL Baso # (Auto) (0-100) /uL PT (10.1-12.7) SECONDS INR (0.9-1.3) Sodium (137-145) mmol/L Potassium (3.4-5.1) mmol/L Chloride (98-107) mmol/L Carbon Dioxide (22-32) mmol/L BUN (9-20) mg/dL Creatinine (0.66-1.25) mg/dL Estimated GFR (>60) mL/min BUN/Creatinine Ratio (6-22) Glucose (80-110) mg/dL Calcium (8.4-10.2) mg/dL Total Bilirubin (0.2-1.3) mg/dL AST (17-59) IU/L ALT (<50) IU/L Alkaline Phosphatase (38-126) U/L Total Creatine Kinase 34 L (55-170) U/L CK-MB (CK-2) TNP CK-MB (CK-2) Rel Index TNP Troponin I < 0.012 (0.01-0.034) ng/mL NT-Pro-B Natriuret Pep (<125) pg/mL Total Protein (6.3-8.2) g/dL Albumin (3.5-5.0) g/dL Globulin (1.7-4.1) g/dL Albumin/Globulin Ratio (1.0-2.8) Lipase (23-300) U/L Ethyl Alcohol ( - 10) mg/dL SARS-CoV-2 (PCR) (Negative) Blood Type Antibody Screen Point of Care Testing Glucose POC 196 Urine Dip Bedside Urine Glucose Negative Bedside Urine Bilirubin - Negative Bedside Urine Ketone - Negative Urine Specific [place] 1.015 Bedside Urine Occult Blood - Negative Bedside Urine pH 6.0 Bedside Urine Protein - Negative Bedside Urine Urobilinogen - Negative Bedside Urine Nitrite - Negative Bedside Urine Leukocytes - Negative Esterase Discharge Plan Departure Patient Disposition: Home Clinical Impression: Cellulitis Instructions: DI for Cellulitis -- Adult Activity Restrictions/Additional Instructions: You were evaluated in the ED today for loss of consciousness in the fall. Your CT head, CT C-spine, chest x-ray, labs, EKG, urine were normal. The redness and swelling from your right leg is most likely from cellulitis, which is a skin infection. You are being prescribed antibiotics for it. Please complete the full course of antibiotics. Please return to the ED if your symptoms persist, the right leg feels 10s, you have numbness, tingling, weakness. Prescriptions: New cephalexin 500 mg capsule 500 mg PO QID 5 Days Qty: 20 0RF No Action pantoprazole tablet 40 mg PO QAM tolterodine [Detrol LA] 4 mg Capsule,Extended Release 24hr 4 mg PO Q24H Plavix tablet 75 mg PO QAM calcium carbonate 500 mg PO QAM metoprolol succinate 12.5 mg PO QAM Zoloft 100 mg PO QAM insulin glargine 100 unit/mL Cartridge 42 unit SUBCUT BEDTIME gabapentin 600 mg PO TID Mirapex 1 mg PO BEDTIME metformin 500 mg PO BID apixaban 5 mg PO BID insulin lispro 100 unit/mL Insulin Pen See Rx Instructions .ROUTE .COMPLEX Rx Instructions: sliding scale per hospital protocal furosemide [Lasix] 20 mg Tablet 40 mg PO QAM 30 Days Qty: 60 0RF bicalutamide 50 mg tablet 50 mg PO DAILY trazodone 50 mg tablet 50 mg PO BEDTIME ibuprofen 400 mg tablet 400 mg PO PRN PRN (Reason: Pain, Mild) spironolactone 25 mg Tablet 25 mg PO DAILY Qty: 30 0RF lisinopril 5 mg Tablet 2.5 mg PO DAILY Qty: 30 0RF doxycycline hyclate 100 mg capsule 100 mg PO BID Qty: 20 0RF ferrous sulfate [Feosol] 325 mg (65 mg iron) tablet 325 mg PO DAILY tramadol 50 mg tablet 50 mg PO Q8H PRN nystatin-triamcinolone Cream topical loperamide 2 mg tablet 2 mg PO Q6H PRN acetaminophen 325 mg capsule 325 mg PO ONCE PRN Referrals: Vandana Hart MD [Primary Care Provider] - Visit Report Forms: Patient Portal/API <Stefan Calloway DO - Last Filed: 04/23/22 07:11> [facility] I was immediately available in the department for consultation. This documentation has been reviewed and I agree with assessment and plan. Supervised by Stefan Calloway DO
--- NOTE | 2022-04-20 17:27 | PC.NURSE ---
called deena for transportation back to facility.
--- NOTE | 2022-04-20 17:29 | PC.NURSE ---
halle skelton said to send pt in cab.
== END 2022-04-20 17:50 | disposition home or self-care (01) ==
PROVIDERS: Emergency Medicine; Emergency Provider Student in an Organized Health Care Education/Training Program; PCP Internal Medicine
DX: L03.115 Cellulitis of right lower limb (principal); S09.90XA Unspecified injury of head, initial encounter; W18.30XA Fall on same level, unspecified, initial encounter; Z79.01 Long term (current) use of anticoagulants; Z20.822 Contact with and (suspected) exposure to COVID-19
CPT/HCPCS: 36415; 70450; 71045; 71275; 72125; 80053; 80320; 81003; 82550; 82962; 83690; 83880; 84484; 85025; 85610; 86850; 86900; 86901; 87635; 93005; 99284; 99285; C9803; Q9967

== ENCOUNTER 2022-06-13 07:57 | Inpatient (IN) | payer MEDICARE, MEDICAID, SELFPAY ==
[2020-10-23 13:01] VITALS: BMI 38.4
[2022-06-13] VITALS (80 sets, daily range): BP systolic 101–135; BP diastolic 48–97; PULSE 55–106; RESP 18–44; TEMP 36.3–38.2; O2SAT 90–98; BMI 37.3
--- NOTE | 2022-06-13 08:09 | DI.RAD.S_ITS ---
PROCEDURE: XR CHEST 1V INDICATIONS: suspected sepsis TECHNIQUE: One view of the chest was acquired. COMPARISON: [facility], CT, CT ANGIO CHEST PE PROTOCOL, 04/20/2022, 14:25. [facility], CR, XR CHEST 1V, 04/20/2022, 13:09. FINDINGS: Surgical changes and devices: An AICD is seen. The leads are seen in stable positions. A percutaneously placed aortic valve replacement can be seen. Lungs and pleura: An incomplete inspiratory result is noted, causing a crowded appearance to the lung markings. No focal infiltrates are seen. Generalized interstitial prominence is seen. No pneumothorax is seen. There is potential blunting of the left costophrenic angle. Mediastinum: Mediastinal contours appear normal. Heart size is normal. Bones and chest wall: No suspicious bony lesions. Overlying soft tissues appear unremarkable. IMPRESSION: Low lung volumes, with potential blunting of the left costophrenic angle and mild interstitial prominence. Heart size at the upper limits of normal. Please consider CHF. If clinically appropriate, a short-term followup chest series (with PA and lateral views) performed in deep inspiration is suggested for further evaluation. Postoperative and degenerative changes are seen. Dictated by: Yong Morley M.D. on 06/13/2022 at 7:58 Approved by: Yong Morley M.D. on 06/13/2022 at 8:00
--- NOTE | 2022-06-13 08:26 | ED.SEPSIS ---
HPI - Sepsis General Chief Complaint: Fever Mode of arrival: Wheelchair Source: patient and family Limitations: no limitations Evaluation Sepsis Screen: Possible Sepsis Risk Sepsis Infection Criteria Present: Suspected New Infection Narrative: This is a 72 year old male with history of cardiac stent, pacemaker, pulmonary emboli on warfarin and is on O2 overnight. Patient presents today with fever, nausea and vomiting, shortness of breath that started overnight. Patient states felt fine yesterday, he denies headache, denies neck pain, denies chest pain or pressure. He does feel short of breath, he does use home O2 overnight, patient states he had nausea and vomiting starting this morning. Denies abdominal back or flank pain. He denies dysuria urgency or frequency. He had some loose stools but denies black or bloody stools. Patient denies rash or skin changes. Denies any swelling of lower extremities. Patient states he is had cardiac stent he thinks he is had something else done his heart besides his pacemaker but can not recall and does not have any obvious scars. He states he had pulmonary emboli he denies an IVC filter, he states he is not sure why he developed PEs and his daughter at bedside is unsure as well. He is on warfarin. He is on O2 overnight night unclear if he has sleep apnea versus COPD. Denies chronic tobacco abuse, he states used LSD about 50 years ago but no other illicit since then. He denies regular alcohol use. He is accompanied by his daughter he lives in assisted living and Dr. Hart is his primary care. Review of Systems Review of Systems ROS Unobtainable: All systems reviewed & are unremarkable except as noted in HPI and below Patient History Social History Smoking Status: Former smoker Smoking Status: Former smoker alcohol intake frequency: 0-2 drinks per day Substance Use Type: does not use Exam Narrative Exam Narrative: GEN: well nourished, male, alert and oriented x 3, patient appears to be in mild distress. No diaphoresis but the inside of his glasses are sweaty, HEENT: Atraumatic, pupils are equal round reactive to light, extraocular movements are intact, nares are clear, TMs are clear with no fluid, there is no conjunctival pallor. Throat is clear without any exudates, erythema, tonsillar enlargement or uvular deviation, negative meningeal signs. HEART: Regular rate and rhythm without murmur, clicks, rubs. Pulses are equal in upper and lower extremities LUNGS:Lungs clear to auscultation, no wheezes, rales, crackles, chest moves symmetrically, no tachypnea accessory muscle use. ABD:bowel sounds normal, soft, non-tender, no guarding, rebound, rigidity, no masses noted, no hepatosplenomegaly :No CVA tenderness MSCL: Non-tender, no muscle atrophy, muscles strength 5/5 upper and lower extremities, full range of motion NEURO:CN 2-12 intact, sensation normal, GCS 15 SKIN: No rash, erythema or other skin changes, Initial Vital Signs Initial Vital Signs: Vital Signs Temperature 100.4 F H 06/13/22 08:00 Pulse Rate 105 H 06/13/22 08:00 Respiratory Rate 30 H 06/13/22 08:00 Blood Pressure 135/90 06/13/22 08:00 Pulse Oximetry 90 L 06/13/22 08:00 Oxygen Delivery Method 06/13/22 08:00 Course Orders Ordered: ED Orders 06/13/22 08:09 XR chest 1V Stat RT Consult Eval and Treat NOW 06/13/22 08:21 Troponin & CK Cardiac Panel Stat 06/13/22 08:30 BNP [NT-proBNP (BNP-Adult 18+)] Stat Complete Blood Count AUTO DIFF Stat Comprehensive Metabolic Panel Stat Lactate (Lactic Acid) Stat Lipase Stat Procalcitonin Stat 06/13/22 08:34 Covid-19 + FLU A/B + RSV - PCR Stat 06/13/22 08:45 Blood Culture Stat Partial Thromboplastin Time Stat Prothrombin Time INR Stat 06/13/22 09:00 EKG-12 Lead Stat 06/13/22 09:20 Urinalysis and Microscopic Stat Urine Culture Stat 06/13/22 10:51 CT kidney ureter bladder (KUB) Stat 06/13/22 14:28 Urinalysis and Microscopic Stat Ondansetron HCl (Ondansetron 4 Mg/2 Ml Inj) 4 mg IV NOW PRN PRN Reason: Nausea And Vomiting Last Admin: 06/13/22 09:01 Dose: 4 mg Documented By: RB Discontinued Medications Acetaminophen (Acetaminophen 325 Mg Tablet) 975 mg PO NOW ONE Stop: 06/13/22 08:41 Last Admin: 06/13/22 09:02 Dose: 975 mg Documented By: RB Sodium Chloride (Normal Saline 0.9%) 1,000 mls @ 1,000 mls/hr IV BOLUS ONE Stop: 06/13/22 09:07 Last Infusion: 06/13/22 10:41 Dose: 0 mls/hr Documented By: Admin: 06/13/22 09:03 Dose: 1,000 mls/hr Documented By: RB Piperacillin Sod/Tazobactam (Sod 4.5 gm/ Sodium Chloride) 100 mls @ 200 mls/hr IV NOW ONE Stop: 06/13/22 09:21 Last Infusion: 06/13/22 10:41 Dose: 0 mls/hr Documented By: Admin: 06/13/22 09:44 Dose: 200 mls/hr Documented By: RB Sodium Chloride (Normal Saline 0.9%) 1,000 mls @ 1,000 mls/hr IV BOLUS ONE Stop: 06/13/22 11:49 Last Infusion: 06/13/22 13:39 Dose: 0 mls/hr Documented By: Admin: 06/13/22 10:53 Dose: 1,000 mls/hr Documented By: RB Consultations Consultation #1: Dr. Culp, hospitalist came down to see the patient discussed putting in for pneumonia, patient's does have right hydroureter, there is a small mass after discussion with patient notes that he has known prostate cancer that mass has been present for some time he states there is no intervention available for it, he does have a bump in his renal function Dr. Culp, does request if we can repeat UA to confirm that it is negative and no signs of obstructive urosepsis, which I think is very appropriate. Patient does meet septic criteria, he has been covered with initial dose of IV antibiotic. Time: 13:05 Consultation #2: Patient UA on repeat is negative re-contacted the hospitalist who accepts. Time: 16:14 Vital Signs Vital signs: Vital Signs - 8 hr 06/13/22 09:02 06/13/22 08:45 06/13/22 08:52 Temperature 100.8 F H Pulse Rate 106 H 100 H Respiratory Rate Blood Pressure Pulse Oximetry 92 91 Oxygen Delivery Method Oxygen Flow Rate 06/13/22 08:52 06/13/22 09:00 06/13/22 09:00 Temperature Pulse Rate 100 H Respiratory Rate Blood Pressure 132/60 132/60 Pulse Oximetry 91 Oxygen Delivery Method Oxygen Flow Rate 06/13/22 09:10 06/13/22 09:10 06/13/22 09:44 Temperature 99.5 F Pulse Rate 101 H Respiratory Rate Blood Pressure 131/63 Pulse Oximetry 93 Oxygen Delivery Method Nasal Cannula Oxygen Flow Rate 2.5 06/13/22 09:20 06/13/22 09:21 06/13/22 09:21 Temperature Pulse Rate 97 H 97 H Respiratory Rate Blood Pressure 128/60 Pulse Oximetry 94 94 Oxygen Delivery Method Oxygen Flow Rate 06/13/22 09:30 06/13/22 09:31 06/13/22 09:31 Temperature Pulse Rate 98 H 96 H Respiratory Rate Blood Pressure 117/97 H Pulse Oximetry 94 94 Oxygen Delivery Method Oxygen Flow Rate 06/13/22 09:42 06/13/22 09:47 06/13/22 09:47 Temperature Pulse Rate 106 H 93 H Respiratory Rate Blood Pressure 130/60 Pulse Oximetry 92 92 Oxygen Delivery Method Oxygen Flow Rate 06/13/22 09:50 06/13/22 09:51 06/13/22 09:51 Temperature Pulse Rate 92 H 94 H Respiratory Rate Blood Pressure 120/58 L Pulse Oximetry 92 92 Oxygen Delivery Method Oxygen Flow Rate 06/13/22 10:00 06/13/22 10:01 06/13/22 10:01 Temperature Pulse Rate 92 H 93 H Respiratory Rate Blood Pressure 112/59 L Pulse Oximetry 93 93 Oxygen Delivery Method Oxygen Flow Rate 06/13/22 10:10 06/13/22 10:11 06/13/22 10:11 Temperature Pulse Rate 89 89 Respiratory Rate Blood Pressure 104/53 L Pulse Oximetry 92 92 Oxygen Delivery Method Oxygen Flow Rate 06/13/22 10:20 06/13/22 10:21 06/13/22 10:30 Temperature Pulse Rate 89 89 94 H Respiratory Rate Blood Pressure Pulse Oximetry 93 93 94 Oxygen Delivery Method Oxygen Flow Rate 06/13/22 10:31 06/13/22 10:31 06/13/22 10:40 Temperature Pulse Rate 91 H 88 Respiratory Rate Blood Pressure 101/58 L Pulse Oximetry 93 94 Oxygen Delivery Method Oxygen Flow Rate 06/13/22 10:45 06/13/22 10:45 06/13/22 10:50 Temperature Pulse Rate 95 H Respiratory Rate Blood Pressure 119/58 L 121/60 Pulse Oximetry 93 Oxygen Delivery Method Oxygen Flow Rate 06/13/22 10:50 06/13/22 11:00 06/13/22 11:00 Temperature Pulse Rate 91 H 86 Respiratory Rate Blood Pressure 115/57 L Pulse Oximetry 94 94 Oxygen Delivery Method Oxygen Flow Rate 06/13/22 11:10 06/13/22 11:11 06/13/22 11:11 Temperature Pulse Rate 90 90 Respiratory Rate Blood Pressure 128/54 L Pulse Oximetry 94 92 Oxygen Delivery Method Oxygen Flow Rate 06/13/22 11:20 06/13/22 11:21 06/13/22 11:21 Temperature Pulse Rate 89 89 Respiratory Rate Blood Pressure 102/58 L Pulse Oximetry 92 93 Oxygen Delivery Method Oxygen Flow Rate 06/13/22 11:39 06/13/22 11:40 06/13/22 11:50 Temperature Pulse Rate 86 87 85 Respiratory Rate 32 H Blood Pressure Pulse Oximetry 93 93 94 Oxygen Delivery Method Oxygen Flow Rate 06/13/22 12:00 06/13/22 12:10 06/13/22 12:10 Temperature 99.3 F Pulse Rate 94 H 85 Respiratory Rate 34 H 22 Blood Pressure 120/61 Pulse Oximetry 94 93 Oxygen Delivery Method Nasal Cannula Nasal Cannula Oxygen Flow Rate 2 06/13/22 12:20 06/13/22 12:20 06/13/22 12:30 Temperature Pulse Rate 80 Respiratory Rate 29 H Blood Pressure 117/56 L 118/58 L Pulse Oximetry 94 Oxygen Delivery Method Oxygen Flow Rate 06/13/22 12:30 06/13/22 12:40 06/13/22 12:40 Temperature Pulse Rate 82 80 Respiratory Rate 29 H 39 H Blood Pressure 118/58 L Pulse Oximetry 94 94 Oxygen Delivery Method Nasal Cannula Oxygen Flow Rate 2.5 06/13/22 12:50 06/13/22 12:50 06/13/22 13:00 Temperature Pulse Rate 83 77 Respiratory Rate 33 H 35 H Blood Pressure 125/59 L Pulse Oximetry 95 96 Oxygen Delivery Method Oxygen Flow Rate 06/13/22 13:01 06/13/22 13:01 06/13/22 13:10 Temperature Pulse Rate 81 80 Respiratory Rate 44 H 38 H Blood Pressure 121/64 Pulse Oximetry 95 96 Oxygen Delivery Method Oxygen Flow Rate 06/13/22 13:11 06/13/22 13:11 06/13/22 13:20 Temperature Pulse Rate 79 Respiratory Rate 23 Blood Pressure 118/55 L 117/59 L Pulse Oximetry 95 Oxygen Delivery Method Oxygen Flow Rate 06/13/22 13:20 06/13/22 13:30 06/13/22 13:30 Temperature Pulse Rate 79 76 Respiratory Rate 23 22 Blood Pressure 107/53 L Pulse Oximetry 94 94 Oxygen Delivery Method Oxygen Flow Rate 06/13/22 14:28 Temperature 98.1 F Pulse Rate Respiratory Rate Blood Pressure Pulse Oximetry Oxygen Delivery Method Oxygen Flow Rate Sepsis Evaluation (ED) Triage Screening Sepsis Screen: Possible Sepsis Risk Level 1 - Infection Sepsis Infection Criteria Present: Suspected New Infection Response It is my opinion that his patient have a likely infectious etiology for meeting sepsis criteria: Does Fluid calculation based on 30 mL/kg within 1hr of criteria: IBW used due to BMI>30 Antibiotics initiated within 1 hr of Sepis dx: Yes Tissue Perfusion Reassessed within 6 hrs of infusion start time: Yes Date of Tissue Perfusion Reassessment completed: 06/13/22 Time Tissue Perfusion Reassessment completed: 12:15 MDM - Sepsis Lab Data Result diagrams: 06/13/22 08:30 06/13/22 08:30 Labs: Lab Results 06/13/22 06/13/22 06/13/22 Range/Units 08:21 08:30 08:30 WBC 20.0 H (4.5-11.0) X10^3/uL RBC 4.52 (4.5-5.9) X10^6/uL Hgb 11.9 L (13.5-17.5) g/dL Hct 36.7 L (41-53) % MCV 81.2 (80-100) fL MCH 26.4 (26-34) PG MCHC 32.5 (30-36) % RDW 15.2 H (11.6-14.8) % Plt Count 251 (150-400) X10^3/uL Neut % (Auto) 91.9 H (50-75) % Lymph % (Auto) 3.3 L (25-40) % [place] % (Auto) 4.2 (3-14) % Eos % (Auto) 0.2 L (2-4) % Baso % (Auto) 0.4 (0-2) % Neut # (Auto) 03881 H (9209-6826) /uL Lymph # (Auto) 700 L (4203-9536) /uL [place] # (Auto) 800 (0-900) /uL Eos # (Auto) 0 (0-450) /uL Baso # (Auto) 100 (0-100) /uL PT (10.1-12.7) SECONDS INR (0.9-1.3) APTT (26-36) SECONDS Sodium 139 (137-145) mmol/L Potassium 4.1 (3.4-5.1) mmol/L Chloride 101 (98-107) mmol/L Carbon Dioxide 22 (22-32) mmol/L BUN 31 H (9-20) mg/dL Creatinine 2.02 H (0.66-1.25) mg/dL Estimated GFR 34 L (>60) mL/min BUN/Creatinine Ratio 15.3 (6-22) Glucose 235 H (80-110) mg/dL Lactate (0.7-2.1) mmol/L Calcium 8.7 (8.4-10.2) mg/dL Total Bilirubin 0.5 (0.2-1.3) mg/dL AST 23 (17-59) IU/L ALT 23 (<50) IU/L Alkaline Phosphatase 91 (38-126) U/L Total Creatine Kinase 40 L (55-170) U/L CK-MB (CK-2) TNP CK-MB (CK-2) Rel Index TNP Troponin I 0.014 (0.01-0.034) ng/mL NT-Pro-B Natriuret Pep (<125) pg/mL Total Protein 7.5 (6.3-8.2) g/dL Albumin 4.2 (3.5-5.0) g/dL Globulin 3.3 (1.7-4.1) g/dL Albumin/Globulin Ratio 1.3 (1.0-2.8) Lipase 69 (23-300) U/L Procalcitonin 0.57 H (<0.5) ng/mL Urine Color Urine Appearance Urine pH (4.5-8.0) Ur Specific [place] (1.000-1.035) Urine Protein (Negative) Urine Glucose (UA) (Negative) g/dL Urine Ketones (NEGATIVE) Urine Occult Blood (Negative) Urine Nitrate (Negative) Urine Bilirubin (NEGATIVE) Urine Urobilinogen (0.2) E.U./dL Ur Leukocyte Esterase (NEGATIVE) Urine RBC (0-5/HPF) Urine WBC (0-5/HPF) Ur Squamous Epith Cells (0-5/HPF) Urine Bacteria (None) Urine Mucus (Negative) Ur Culture Indicated? SARS-CoV-2 (PCR) (Negative) Influenza A (RT-PCR) (NEGATIVE) Influenza B (RT-PCR) (NEGATIVE) RSV (PCR) (Negative) 06/13/22 06/13/22 06/13/22 Range/Units 08:30 08:30 08:34 WBC (4.5-11.0) X10^3/uL RBC (4.5-5.9) X10^6/uL Hgb (13.5-17.5) g/dL Hct (41-53) % MCV (80-100) fL MCH (26-34) PG MCHC (30-36) % RDW (11.6-14.8) % Plt Count (150-400) X10^3/uL Neut % (Auto) (50-75) % Lymph % (Auto) (25-40) % [place] % (Auto) (3-14) % Eos % (Auto) (2-4) % Baso % (Auto) (0-2) % Neut # (Auto) (6560-3828) /uL Lymph # (Auto) (7666-0711) /uL [place] # (Auto) (0-900) /uL Eos # (Auto) (0-450) /uL Baso # (Auto) (0-100) /uL PT (10.1-12.7) SECONDS INR (0.9-1.3) APTT (26-36) SECONDS Sodium (137-145) mmol/L Potassium (3.4-5.1) mmol/L Chloride (98-107) mmol/L Carbon Dioxide (22-32) mmol/L BUN (9-20) mg/dL Creatinine (0.66-1.25) mg/dL Estimated GFR (>60) mL/min BUN/Creatinine Ratio (6-22) Glucose (80-110) mg/dL Lactate 3.2 H (0.7-2.1) mmol/L Calcium (8.4-10.2) mg/dL Total Bilirubin (0.2-1.3) mg/dL AST (17-59) IU/L ALT (<50) IU/L Alkaline Phosphatase (38-126) U/L Total Creatine Kinase (55-170) U/L CK-MB (CK-2) CK-MB (CK-2) Rel Index Troponin I (0.01-0.034) ng/mL NT-Pro-B Natriuret Pep 299 H (<125) pg/mL Total Protein (6.3-8.2) g/dL Albumin (3.5-5.0) g/dL Globulin (1.7-4.1) g/dL Albumin/Globulin Ratio (1.0-2.8) Lipase (23-300) U/L Procalcitonin (<0.5) ng/mL Urine Color Urine Appearance Urine pH (4.5-8.0) Ur Specific [place] (1.000-1.035) Urine Protein (Negative) Urine Glucose (UA) (Negative) g/dL Urine Ketones (NEGATIVE) Urine Occult Blood (Negative) Urine Nitrate (Negative) Urine Bilirubin (NEGATIVE) Urine Urobilinogen (0.2) E.U./dL Ur Leukocyte Esterase (NEGATIVE) Urine RBC (0-5/HPF) Urine WBC (0-5/HPF) Ur Squamous Epith Cells (0-5/HPF) Urine Bacteria (None) Urine Mucus (Negative) Ur Culture Indicated? SARS-CoV-2 (PCR) Negative (Negative) Influenza A (RT-PCR) Flu a negative (NEGATIVE) Influenza B (RT-PCR) Flu b negative (NEGATIVE) RSV (PCR) Negative (Negative) 06/13/22 06/13/22 06/13/22 Range/Units 08:45 09:20 12:15 WBC (4.5-11.0) X10^3/uL RBC (4.5-5.9) X10^6/uL Hgb (13.5-17.5) g/dL Hct (41-53) % MCV (80-100) fL MCH (26-34) PG MCHC (30-36) % RDW (11.6-14.8) % Plt Count (150-400) X10^3/uL Neut % (Auto) (50-75) % Lymph % (Auto) (25-40) % [place] % (Auto) (3-14) % Eos % (Auto) (2-4) % Baso % (Auto) (0-2) % Neut # (Auto) (1613-4324) /uL Lymph # (Auto) (7232-7938) /uL [place] # (Auto) (0-900) /uL Eos # (Auto) (0-450) /uL Baso # (Auto) (0-100) /uL PT 37.4 H (10.1-12.7) SECONDS INR 3.2 H (0.9-1.3) APTT 45 H (26-36) SECONDS Sodium (137-145) mmol/L Potassium (3.4-5.1) mmol/L Chloride (98-107) mmol/L Carbon Dioxide (22-32) mmol/L BUN (9-20) mg/dL Creatinine (0.66-1.25) mg/dL Estimated GFR (>60) mL/min BUN/Creatinine Ratio (6-22) Glucose (80-110) mg/dL Lactate 1.7 (0.7-2.1) mmol/L Calcium (8.4-10.2) mg/dL Total Bilirubin (0.2-1.3) mg/dL AST (17-59) IU/L ALT (<50) IU/L Alkaline Phosphatase (38-126) U/L Total Creatine Kinase (55-170) U/L CK-MB (CK-2) CK-MB (CK-2) Rel Index Troponin I (0.01-0.034) ng/mL NT-Pro-B Natriuret Pep (<125) pg/mL Total Protein (6.3-8.2) g/dL Albumin (3.5-5.0) g/dL Globulin (1.7-4.1) g/dL Albumin/Globulin Ratio (1.0-2.8) Lipase (23-300) U/L Procalcitonin (<0.5) ng/mL Urine Color Yellow Urine Appearance Clear Urine pH 5.0 (4.5-8.0) Ur Specific [place] 1.010 (1.000-1.035) Urine Protein Negative (Negative) Urine Glucose (UA) Trace H (Negative) g/dL Urine Ketones Negative (NEGATIVE) Urine Occult Blood Negative (Negative) Urine Nitrate Negative (Negative) Urine Bilirubin Negative (NEGATIVE) Urine Urobilinogen 0.2 (0.2) E.U./dL Ur Leukocyte Esterase Negative (NEGATIVE) Urine RBC None seen (0-5/HPF) Urine WBC 0-1/hpf (0-5/HPF) Ur Squamous Epith Cells (0-5/HPF) Urine Bacteria None seen (None) Urine Mucus 1+ H (Negative) Ur Culture Indicated? SARS-CoV-2 (PCR) (Negative) Influenza A (RT-PCR) (NEGATIVE) Influenza B (RT-PCR) (NEGATIVE) RSV (PCR) (Negative) 06/13/22 Range/Units 14:28 WBC (4.5-11.0) X10^3/uL RBC (4.5-5.9) X10^6/uL Hgb (13.5-17.5) g/dL Hct (41-53) % MCV (80-100) fL MCH (26-34) PG MCHC (30-36) % RDW (11.6-14.8) % Plt Count (150-400) X10^3/uL Neut % (Auto) (50-75) % Lymph % (Auto) (25-40) % [place] % (Auto) (3-14) % Eos % (Auto) (2-4) % Baso % (Auto) (0-2) % Neut # (Auto) (2478-3124) /uL Lymph # (Auto) (8999-0868) /uL [place] # (Auto) (0-900) /uL Eos # (Auto) (0-450) /uL Baso # (Auto) (0-100) /uL PT (10.1-12.7) SECONDS INR (0.9-1.3) APTT (26-36) SECONDS Sodium (137-145) mmol/L Potassium (3.4-5.1) mmol/L Chloride (98-107) mmol/L Carbon Dioxide (22-32) mmol/L BUN (9-20) mg/dL Creatinine (0.66-1.25) mg/dL Estimated GFR (>60) mL/min BUN/Creatinine Ratio (6-22) Glucose (80-110) mg/dL Lactate (0.7-2.1) mmol/L Calcium (8.4-10.2) mg/dL Total Bilirubin (0.2-1.3) mg/dL AST (17-59) IU/L ALT (<50) IU/L Alkaline Phosphatase (38-126) U/L Total Creatine Kinase (55-170) U/L CK-MB (CK-2) CK-MB (CK-2) Rel Index Troponin I (0.01-0.034) ng/mL NT-Pro-B Natriuret Pep (<125) pg/mL Total Protein (6.3-8.2) g/dL Albumin (3.5-5.0) g/dL Globulin (1.7-4.1) g/dL Albumin/Globulin Ratio (1.0-2.8) Lipase (23-300) U/L Procalcitonin (<0.5) ng/mL Urine Color Yellow Urine Appearance Clear Urine pH 5.5 (4.5-8.0) Ur Specific [place] 1.010 (1.000-1.035) Urine Protein Negative (Negative) Urine Glucose (UA) Negative (Negative) g/dL Urine Ketones Negative (NEGATIVE) Urine Occult Blood Negative (Negative) Urine Nitrate Negative (Negative) Urine Bilirubin Negative (NEGATIVE) Urine Urobilinogen 0.2 (0.2) E.U./dL Ur Leukocyte Esterase Negative (NEGATIVE) Urine RBC None seen (0-5/HPF) Urine WBC 0-1/hpf (0-5/HPF) Ur Squamous Epith Cells 0-1 /hpf (0-5/HPF) Urine Bacteria None seen (None) Urine Mucus (Negative) Ur Culture Indicated? Cult not indicated SARS-CoV-2 (PCR) (Negative) Influenza A (RT-PCR) (NEGATIVE) Influenza B (RT-PCR) (NEGATIVE) RSV (PCR) (Negative) Point of Care Testing Glucose POC 138 Imaging Data Chest x-ray: Radiologist's Impression: [address] [address] XRay Report Signed Patient: Erick Álvarez MR#: [id number] : 1950 Acct:[id number] Age/Sex: 72 / M Date of Service: 06/13/22 Loc: ED Accession Number: [id number] ?? Procedure: XR chest 1V Ordering Provider: Keshia Kate D.O. PROCEDURE:? XR CHEST 1V ? INDICATIONS:? suspected sepsis ? TECHNIQUE:? One view of the chest was acquired.? ? COMPARISON:? [facility], CT, CT ANGIO CHEST PE PROTOCOL, 04/20/2022, 14:25.? [facility], CR, XR CHEST 1V, 04/20/2022, 13:09. ? FINDINGS:? ? Surgical changes and devices:? An AICD is seen.? The leads are seen in stable positions.? A percutaneously placed aortic valve replacement can be seen.? ? Lungs and pleura:? An incomplete inspiratory result is noted, causing a crowded appearance to the lung markings.? No focal infiltrates are seen.? Generalized interstitial prominence is seen.? No pneumothorax is seen.? There is potential blunting of the left costophrenic angle. ? Mediastinum:? Mediastinal contours appear normal.? Heart size is normal.? ? Bones and chest wall:? No suspicious bony lesions.? Overlying soft tissues appear unremarkable.? ? ? IMPRESSION:? Low lung volumes, with potential blunting of the left costophrenic angle and mild interstitial prominence.? Heart size at the upper limits of normal.? Please consider CHF. ? If clinically appropriate, a short-term followup chest series (with PA and lateral views) performed in deep inspiration is suggested for further evaluation.? ? Postoperative and degenerative changes are seen.? ? Dictated by: Yong Morley M.D. on 06/13/2022 at 7:58 ? ? Approved by: Yong Morley M.D. on 06/13/2022 at 8:00?? ECG Data Attestation: I personally reviewed and interpreted this ECG as follows: Prior ECG tracings: available for review Interpretation: Ventricularly paced rhythm rate of 99 QRS of 168 QTC 546. No change from prior. MDM Narrative Medical decision making narrative: This is a 72-year-old male with complaint fever, nausea and vomiting shortness of breath. Patient is febrile, tachycardic, tachypneic and was 90% on room air although he does use home O2 overnight at 2 L and he improves his oxygenation at 2 and a. Patient's initial chest x-ray is negative, he is a leukocytosis 20 meet septic criteria, he has not been persistently hypotensive but did have some episodes of hypotension, patient was not given a 30 cc/kilos L bolus as he is 114 kilos which would be almost 3.5 L and I am concerned about fluid overload he does respond to fluids he received a L bolus followed by a 2 L bolus over a longer period of time. Patient was covered with a dose of antibiotic as there is concern for bacterial infection initially, patient appears to have a pneumonia on bases on his CT KUB, this was ordered as patient's renal function appeared decreased with a creatinine 2 appears his baseline is 1.3 from old labs we were able to obtain, his procalcitonin is positive lactate was 3.2 but improving with fluid resuscitation. Patient does not have a positive troponin BNP slightly elevated before seeing the need not to give him massive amounts of fluid. Patient UA does not show any signs of infection, CT KUB shows what looks like obstruction from some lymph nodes, when patient was asked about this he states he has prostate cancer that lesion is known, he has been told that they can not intervene for it I am not sure if they mean treated with chemo or radiation or if he means stenting, patient does not appear to have a obstructive urosepsis though. Discussed with our hospitalist Dr. Culp, he asked for repeat UA to confirm no urinary infection understandably as we do not have Urology available in house today. This is negative and he accepts for admission. Critical Care Time Critical Care Time Total Critical Care Time: 45 Attestation: The high probability of a clinically significant, sudden or life threatening deterioration of the [] system(s) required my full and direct attention, intervention and personal management. The aggregate critical care time was [] minutes. This time is in addition to time spent performing reported procedures but includes the following: [x] Data Review and interpretation [x] Patient assessment and monitoring of vital signs [x] Documentation [x] Medication orders and management Discharge Plan Departure Patient Disposition: Admitted As Inpatient Clinical Impression: Pneumonia, Acute on chronic kidney failure, Acidosis, lactic, Hydronephrosis of right kidney, Sepsis
[2022-06-13 08:46] LABS: Add Manual Diff / Slide Review NO; Basophils Absolute Auto 100 /uL (0-100); Basophils Percent Auto 0.4 % (0-2); Eosinophils Absolute Auto 0 /uL (0-450); Eosinophils Percent Auto 0.2 % (2-4); Hematocrit 36.7 % (41-53); Hemoglobin 11.9 g/dL (13.5-17.5); Lymphocytes Absolute Auto 700 /uL (1100-4500); Lymphocytes Percent Auto 3.3 % (25-40); Mean Corpuscular HGB Conc 32.5 % (30-36); Mean Corpuscular Hemoglobin 26.4 PG (26-34); Mean Corpuscular Volume 81.2 fL (80-100); Monocytes Absolute Auto 800 /uL (0-900); Monocytes Percent Auto 4.2 % (3-14); Neutrophils Absolute Auto 18400 /uL (1500-7000); Neutrophils Percent Auto 91.9 % (50-75); Platelet Count 251 X10^3/uL (150-400); Red Blood Cell Count 4.52 X10^6/uL (4.5-5.9); Red Cell Distribution Width 15.2 % (11.6-14.8)
[2022-06-13] MEDS: ONDANSETRON 4 MG/2 ML INJ IV (09:01)
[2022-06-13] MEDS: ACETAMINOPHEN 325 MG TABLET 975 MG PO (09:02)
[2022-06-13] MEDS: SODIUM CHLORIDE 0.9% 1,000 ML 1000 ML IV ×3 (09:03→23:13)
[2022-06-13 09:05] LABS: Creatine Kinase 40 U/L (55-170)
[2022-06-13 09:20] LABS: Troponin I 0.014 ng/mL (0.01-0.034)
[2022-06-13 09:24] LABS: INR 3.2 (0.9-1.3); Prothrombin Time 37.4 SECONDS (10.1-12.7)
[2022-06-13 09:27] LABS: PTT Partial Thromboplastin Tim 45 SECONDS (26-36)
[2022-06-13 09:28] LABS: Appearance Urine UA CLEAR; Bilirubin Urine UA NEGATIVE (NEGATIVE); Color Urine UA YELLOW; Glucose Urine UA TRACE g/dL (Negative); Ketones Urine UA NEGATIVE (NEGATIVE); Leukocyte Esterase Urine UA NEGATIVE (NEGATIVE); Nitrite Urine UA NEGATIVE (Negative); Occult Blood Urine UA NEGATIVE (Negative); Protein Urine UA NEGATIVE (Negative); Urobilinogen Urine UA 0.2 E.U./dL (0.2)
[2022-06-13 09:28] LABS: Influenza A - CEPHEID Flu A NEGATIVE (NEGATIVE); Influenza B - CEPHEID Flu B NEGATIVE (NEGATIVE); Respiratory Syncytial Virus Negative (Negative)
[2022-06-13 09:32] LABS: Lactate (Lactic Acid) 3.2 mmol/L (0.7-2.1)
[2022-06-13 09:34] LABS: Alanine Aminotransferase 23 IU/L (<50); Albumin 4.2 g/dL (3.5-5.0); Albumin Globulin Ratio 1.3 (1.0-2.8); Alkaline Phosphatase 91 U/L (38-126); Aspartate Aminotransferase 23 IU/L (17-59); BUN Creatinine Ratio 15.3 (6-22); Bilirubin Total 0.5 mg/dL (0.2-1.3); Blood Urea Nitrogen 31 mg/dL (9-20); Calcium 8.7 mg/dL (8.4-10.2); Carbon Dioxide 22 mmol/L (22-32); Chloride 101 mmol/L (98-107); Estimated Glomerular Filt Rate 34 mL/min (>60); Globulin 3.3 g/dL (1.7-4.1); Glucose 235 mg/dL (80-110); HEMOLYSIS < 15 (0-50); Lipase 69 U/L (23-300); Potassium 4.1 mmol/L (3.4-5.1); Sodium 139 mmol/L (137-145); Total Protein 7.5 g/dL (6.3-8.2)
[2022-06-13 09:41] LABS: COVID-19 CEPHEID 4-PLEX PCR Negative (Negative)
[2022-06-13 09:42] LABS: NT-proBNP (BNP-Adult 18+) 299 pg/mL (<125)
[2022-06-13] MEDS: PIPERACILLIN/TAZO 4.5 GM in SODIUM CHLORIDE 0.9% 100 ML IV (09:44)
[2022-06-13 09:50] LABS: Procalcitonin 0.57 ng/mL (<0.5)
--- NOTE | 2022-06-13 10:51 | DI.CT.S_ITS ---
PROCEDURE: CT KIDNEY URETER BLADDER (KUB) INDICATIONS: sepsis, dulce, ? source TECHNIQUE: Axial sections were acquired from the lung bases to the pubic symphysis. Coronal and sagittal reformats were performed. For radiation dose reduction, the following was used: automated exposure control, adjustment of mA and/or kV according to patient size. COMPARISON: [facility], CT, CT ABDOMEN PELVIS WITH CONTRAST, 12/24/2021, 13:25. [facility], CT, CT ABDOMEN PELVIS W CON, 11/25/2020, 11:40. [facility], CT, CT ABDOMEN PELVIS WITH CONTRAST, 12/20/2019, 13:30. [facility], CT, CT ANGIO CHEST PE PROTOCOL, 04/20/2022, 14:25. [facility], CR, XR CHEST 1V, 06/13/2022, 8:36. FINDINGS: Image quality: Excellent. Lung bases: Mild left lower lobe infiltrate can be seen, particularly posterior medially. Heart: AICD leads are seen. A percutaneously placed aortic valve replacement can be seen. URINARY: Right Kidney: No nonobstructing right-sided kidney stones are seen. There is at least moderate right-sided hydronephrosis. Right Ureter: Proximal hydroureter is seen, to the level of the right pelvic brim. Distal to this level, there is a normal caliber right ureter. Left Kidney: No stones or hydronephrosis. Left Ureter: No hydroureter. Bladder: Normal wall thickness. No stones. ABDOMEN: Liver: Unremarkable. Gallbladder: Unremarkable. Biliary ducts: Unremarkable. Pancreas: Unremarkable. Spleen: Unremarkable. Incidental note is made of an accessory splenule along the hilum of the primary spleen. Adrenal Glands: Unremarkable. Stomach and Bowel: Stomach, small bowel loops, and colon are unremarkable. Distal colonic diverticulosis is seen, without findings of active diverticulitis. Peritoneum: No abnormal intraperitoneal fluid. No free air. Ventral Wall: No hernia. Abdominal Nodes: No enlarged retroperitoneal or mesenteric lymph nodes. Vessels: Aorta and inferior vena cava are normal in size. PELVIS: Pelvic Organs: Prostate region clips are seen. Pelvic Nodes: There is a large right iliac chain lymph node seen, as on series 2, image 71 measuring 2.5 x 1.5 cm. This is similar to the 12/24/2021 CT examination. Miscellaneous: Mild bilateral fat containing inguinal hernias are seen. Bones: Degenerative changes are seen, which are worst involving the L5-S1 level. IMPRESSION: There is proximal right-sided hydroureter and hydronephrosis seen, with a normal appearing distal right ureter. The area of transition is seen adjacent to an enlarged right iliac chain lymph node. Please correlate with prior treatment history, including radiation treatment to the region. No kidney stones are seen. There is infiltrate seen involving the left lower lobe, particularly posterior medially. Additional findings: Prosthetic aortic valve AICD leads Accessory splenule Diverticulosis, without active diverticulitis Focal L5-S1 degenerative change. Mild bilateral fat containing inguinal hernias Dictated by: Yong Morlye M.D. on 06/13/2022 at 10:52 Approved by: Yong Morley M.D. on 06/13/2022 at 10:59
[2022-06-13 11:04] LABS: Reflexed Lactate in 2 Hours Y
[2022-06-13 11:16] LABS: Bacteria Urine None Seen; Mucus Urine 1+ (Negative); RBC Urine None Seen (0-5/HPF); WBC Urine 0-1/HPF (0-5/HPF)
[2022-06-13 12:42] LABS: Lactate 2HR (Lactic Acid Rflx) 1.7 mmol/L (0.7-2.1)
[2022-06-13 14:49] LABS: Appearance Urine UA CLEAR; Bilirubin Urine UA NEGATIVE (NEGATIVE); Color Urine UA YELLOW; Glucose Urine UA NEGATIVE (Negative); Ketones Urine UA NEGATIVE (NEGATIVE); Leukocyte Esterase Urine UA NEGATIVE (NEGATIVE); Nitrite Urine UA NEGATIVE (Negative); Occult Blood Urine UA NEGATIVE (Negative); Protein Urine UA NEGATIVE (Negative); Urobilinogen Urine UA 0.2 E.U./dL (0.2); pH Urine UA 5.5 (4.5-8.0)
[2022-06-13 14:56] LABS: Bacteria Urine None Seen; Culture Indicated Urine Cult Not Indicated; RBC Urine None Seen (0-5/HPF); Squamous Epithelial Cell Urine 0-1 /HPF (0-5/HPF); WBC Urine 0-1/HPF (0-5/HPF)
--- NOTE | 2022-06-13 18:58 | PC.NURSE ---
Admit note: Patient admitted to room 222 from ED, assisted from gurney to bed. Alert and oriented x 4, states he is a DNR and has an advanced directive. Instructed to bring copy by daughter (Arlet). High fall risk precautions initiated, call light within reach.
[2022-06-13] MEDS: AZITHROMYCIN 500 MG in DEXTROSE 5% IN WATER 250 ML 250 MG IV (20:22)
[2022-06-13] MEDS: ACETAMINOPHEN 325 MG TABLET 650 MG PO (20:22)
--- NOTE | 2022-06-13 21:33 | PM.HP.1 ---
History of Present Illness History of Present Illness Date Patient Seen: 06/13/22 Time Patient Seen: 16:00 Chief complaint: throwing up Narrative: Mr. Álvarez is a 72M with PMH CAD, PE, s/p ppm, prostate cancer who presents to the hospital with fever, nausea, vomiting, abdominal pain and shortness of breath. He really has had symptoms within the last day. He has had no diarrhea. He has not had any coughing. He does use night time oxygen, but none during the day. He has not had lower leg swelling. He has not had dysuria or difficulty urinating. In the ED workup was done, vitals notable for T 100.8, heart rate in 100s, O2 sats in 80s on room air, respiratory rate in 30s. He was placed on oxygen. Labs notable for WBC 20, hgb 11.9, plts 251. Creatinine 2.02. Trop negative. Procal 0.57. Lactate 3.2, improved with IV fluids. Flu negative. UA negative for infection. Chest xray with low lung volumes and left sided infiltrate. CT abdomen shows proximal right sided hydroureter, hydronephrosis with no kidney stone. Family history: denies history of pulmonary or kidney disease in family Social history: former smoker Patient History Family & Social History Social History: Prior Living Arrangements Assisted Living Safety & Behavioral: Feels Safe in Current Yes Environment Been Physically Hurt or No Threatened By a Person Tobacco & Substance use: Smoking Status Former smoker alcohol intake frequency 0-2 drinks per day Substance Use Type does not use Meds Home Medications and Allergies Allergies Allergy/AdvReac Type Severity Reaction Status Date / Time aspartame Allergy Unknown Verified 06/13/22 08:07 carbidopa Allergy Unknown Verified 06/13/22 08:07 crab Allergy Unknown Verified 06/13/22 08:07 morphine Allergy Unknown Verified 06/13/22 08:07 Review of Systems Review of Systems Narrative: 14 systems reviewed and negative aside from what is noted in HPI Exam Vital Signs (past 8 hours): - 06/13/22 14:28 06/13/22 13:40 06/13/22 13:40 Temperature 98.1 F Pulse Rate 55 L Respiratory Rate Blood Pressure 115/56 L Pulse Oximetry 94 Oxygen Delivery Method Oxygen Flow Rate Fraction of Inspired Oxygen 06/13/22 13:50 06/13/22 13:50 06/13/22 14:00 Temperature Pulse Rate 77 Respiratory Rate 22 Blood Pressure 112/58 L 127/59 L Pulse Oximetry 94 Oxygen Delivery Method Oxygen Flow Rate Fraction of Inspired Oxygen 06/13/22 14:00 06/13/22 14:10 06/13/22 14:10 Temperature Pulse Rate 76 78 Respiratory Rate 21 22 Blood Pressure 116/58 L Pulse Oximetry 95 95 Oxygen Delivery Method Oxygen Flow Rate Fraction of Inspired Oxygen 06/13/22 14:20 06/13/22 14:21 06/13/22 14:21 Temperature Pulse Rate 78 79 Respiratory Rate Blood Pressure 119/57 L Pulse Oximetry 96 95 Oxygen Delivery Method Oxygen Flow Rate Fraction of Inspired Oxygen 06/13/22 14:30 06/13/22 14:30 06/13/22 14:40 Temperature Pulse Rate 73 80 Respiratory Rate 25 H 33 H Blood Pressure 119/57 L Pulse Oximetry 94 95 Oxygen Delivery Method Oxygen Flow Rate Fraction of Inspired Oxygen 06/13/22 14:41 06/13/22 14:41 06/13/22 14:56 Temperature Pulse Rate 81 84 Respiratory Rate 24 Blood Pressure 124/67 Pulse Oximetry 95 94 Oxygen Delivery Method Oxygen Flow Rate Fraction of Inspired Oxygen 06/13/22 15:00 06/13/22 15:10 06/13/22 15:20 Temperature Pulse Rate 71 71 71 Respiratory Rate 25 H 28 H 26 H Blood Pressure Pulse Oximetry 97 96 94 Oxygen Delivery Method Oxygen Flow Rate Fraction of Inspired Oxygen 06/13/22 15:30 06/13/22 15:40 06/13/22 15:50 Temperature Pulse Rate 71 68 68 Respiratory Rate 31 H 25 H Blood Pressure Pulse Oximetry 94 94 95 Oxygen Delivery Method Oxygen Flow Rate Fraction of Inspired Oxygen 06/13/22 16:00 06/13/22 16:10 06/13/22 16:20 Temperature Pulse Rate 68 68 75 Respiratory Rate 22 22 Blood Pressure Pulse Oximetry 95 95 97 Oxygen Delivery Method Oxygen Flow Rate Fraction of Inspired Oxygen 06/13/22 16:30 06/13/22 16:40 06/13/22 16:50 Temperature Pulse Rate 71 69 70 Respiratory Rate 24 Blood Pressure Pulse Oximetry 96 97 96 Oxygen Delivery Method Oxygen Flow Rate Fraction of Inspired Oxygen 06/13/22 17:00 06/13/22 17:02 06/13/22 17:02 Temperature Pulse Rate 82 69 Respiratory Rate 24 Blood Pressure 131/58 L Pulse Oximetry 98 Oxygen Delivery Method Nasal Cannula Oxygen Flow Rate 2 Fraction of Inspired Oxygen 06/13/22 17:10 06/13/22 17:20 06/13/22 17:30 Temperature Pulse Rate 68 69 68 Respiratory Rate 28 H 25 H 28 H Blood Pressure Pulse Oximetry 98 97 98 Oxygen Delivery Method Oxygen Flow Rate Fraction of Inspired Oxygen 06/13/22 17:40 06/13/22 18:09 06/13/22 20:50 Temperature 97.4 F L Pulse Rate 66 69 Respiratory Rate 23 20 Blood Pressure 132/61 Pulse Oximetry 98 97 Oxygen Delivery Method Nasal Cannula Nasal Cannula Oxygen Flow Rate 2 1 Fraction of Inspired Oxygen 96 Fraction of Inspired Oxygen 96 Oxygen Delivery Method Nasal Cannula Oxygen Flow Rate 1 Narrative Exam Narrative: GEN: mild respiratory distress HEENT: dry mucous membranes, PERRL NECK: trachea midline, no JVD PULM: diminished breath sounds bilaterally ABD: soft, tender to palpation, no rebound/guarding CV: tachycardic no murmurs EXT: warm and well perfused with no edema NEURO: awake, alert, oriented, no focal deficits Objective Labs Result Diagrams: 06/13/22 08:30 06/13/22 08:30 Labs: Laboratory Results - last 24 hr 06/13/22 06/13/22 06/13/22 08:21 08:30 08:30 WBC 20.0 H RBC 4.52 Hgb 11.9 L Hct 36.7 L MCV 81.2 MCH 26.4 MCHC 32.5 RDW 15.2 H Plt Count 251 Neut % (Auto) 91.9 H Lymph % (Auto) 3.3 L [place] % (Auto) 4.2 Eos % (Auto) 0.2 L Baso % (Auto) 0.4 Neut # (Auto) 70463 H Lymph # (Auto) 700 L [place] # (Auto) 800 Eos # (Auto) 0 Baso # (Auto) 100 PT INR APTT Sodium 139 Potassium 4.1 Chloride 101 Carbon Dioxide 22 BUN 31 H Creatinine 2.02 H Estimated GFR 34 L BUN/Creatinine Ratio 15.3 Glucose 235 H Lactate Calcium 8.7 Total Bilirubin 0.5 AST 23 ALT 23 Alkaline Phosphatase 91 Total Creatine Kinase 40 L CK-MB (CK-2) TNP CK-MB (CK-2) Rel Index TNP Troponin I 0.014 NT-Pro-B Natriuret Pep Total Protein 7.5 Albumin 4.2 Globulin 3.3 Albumin/Globulin Ratio 1.3 Lipase 69 Procalcitonin 0.57 H Urine Color Urine Appearance Urine pH Ur Specific [place] Urine Protein Urine Glucose (UA) Urine Ketones Urine Occult Blood Urine Nitrate Urine Bilirubin Urine Urobilinogen Ur Leukocyte Esterase Urine RBC Urine WBC Ur Squamous Epith Cells Urine Bacteria Urine Mucus Ur Culture Indicated? SARS-CoV-2 (PCR) Influenza A (RT-PCR) Influenza B (RT-PCR) RSV (PCR) 06/13/22 06/13/22 06/13/22 08:30 08:30 08:34 WBC RBC Hgb Hct MCV MCH MCHC RDW Plt Count Neut % (Auto) Lymph % (Auto) [place] % (Auto) Eos % (Auto) Baso % (Auto) Neut # (Auto) Lymph # (Auto) [place] # (Auto) Eos # (Auto) Baso # (Auto) PT INR APTT Sodium Potassium Chloride Carbon Dioxide BUN Creatinine Estimated GFR BUN/Creatinine Ratio Glucose Lactate 3.2 H Calcium Total Bilirubin AST ALT Alkaline Phosphatase Total Creatine Kinase CK-MB (CK-2) CK-MB (CK-2) Rel Index Troponin I NT-Pro-B Natriuret Pep 299 H Total Protein Albumin Globulin Albumin/Globulin Ratio Lipase Procalcitonin Urine Color Urine Appearance Urine pH Ur Specific [place] Urine Protein Urine Glucose (UA) Urine Ketones Urine Occult Blood Urine Nitrate Urine Bilirubin Urine Urobilinogen Ur Leukocyte Esterase Urine RBC Urine WBC Ur Squamous Epith Cells Urine Bacteria Urine Mucus Ur Culture Indicated? SARS-CoV-2 (PCR) Negative Influenza A (RT-PCR) Flu a negative Influenza B (RT-PCR) Flu b negative RSV (PCR) Negative 06/13/22 06/13/22 06/13/22 08:45 09:20 12:15 WBC RBC Hgb Hct MCV MCH MCHC RDW Plt Count Neut % (Auto) Lymph % (Auto) [place] % (Auto) Eos % (Auto) Baso % (Auto) Neut # (Auto) Lymph # (Auto) [place] # (Auto) Eos # (Auto) Baso # (Auto) PT 37.4 H INR 3.2 H APTT 45 H Sodium Potassium Chloride Carbon Dioxide BUN Creatinine Estimated GFR BUN/Creatinine Ratio Glucose Lactate 1.7 Calcium Total Bilirubin AST ALT Alkaline Phosphatase Total Creatine Kinase CK-MB (CK-2) CK-MB (CK-2) Rel Index Troponin I NT-Pro-B Natriuret Pep Total Protein Albumin Globulin Albumin/Globulin Ratio Lipase Procalcitonin Urine Color Yellow Urine Appearance Clear Urine pH 5.0 Ur Specific [place] 1.010 Urine Protein Negative Urine Glucose (UA) Trace H Urine Ketones Negative Urine Occult Blood Negative Urine Nitrate Negative Urine Bilirubin Negative Urine Urobilinogen 0.2 Ur Leukocyte Esterase Negative Urine RBC None seen Urine WBC 0-1/hpf Ur Squamous Epith Cells Urine Bacteria None seen Urine Mucus 1+ H Ur Culture Indicated? SARS-CoV-2 (PCR) Influenza A (RT-PCR) Influenza B (RT-PCR) RSV (PCR) 06/13/22 14:28 WBC RBC Hgb Hct MCV MCH MCHC RDW Plt Count Neut % (Auto) Lymph % (Auto) [place] % (Auto) Eos % (Auto) Baso % (Auto) Neut # (Auto) Lymph # (Auto) [place] # (Auto) Eos # (Auto) Baso # (Auto) PT INR APTT Sodium Potassium Chloride Carbon Dioxide BUN Creatinine Estimated GFR BUN/Creatinine Ratio Glucose Lactate Calcium Total Bilirubin AST ALT Alkaline Phosphatase Total Creatine Kinase CK-MB (CK-2) CK-MB (CK-2) Rel Index Troponin I NT-Pro-B Natriuret Pep Total Protein Albumin Globulin Albumin/Globulin Ratio Lipase Procalcitonin Urine Color Yellow Urine Appearance Clear Urine pH 5.5 Ur Specific [place] 1.010 Urine Protein Negative Urine Glucose (UA) Negative Urine Ketones Negative Urine Occult Blood Negative Urine Nitrate Negative Urine Bilirubin Negative Urine Urobilinogen 0.2 Ur Leukocyte Esterase Negative Urine RBC None seen Urine WBC 0-1/hpf Ur Squamous Epith Cells 0-1 /hpf Urine Bacteria None seen Urine Mucus Ur Culture Indicated? Cult not indicated SARS-CoV-2 (PCR) Influenza A (RT-PCR) Influenza B (RT-PCR) RSV (PCR) Assessment & Plan Assessment & Plan narrative: 1. Sepsis secondary to pneumonia with acute hypoxemic respiratory failure -patient with WBC 20, fever, tachycardia, tachypnea with elevated creatinin 2.02 likely glenn secondary to infection -workup on imaging shows lung infiltrate along with elevated procalcitonin -continue antibiotics with zosyn and azithro -check mrsa swab -eheck sputum culture -UA negative -follow up blood cultures -wean O2 as able, initially sats in 80s on room air 2. GLENN -initial creatinine 2.02, baseline appears to be 1.3 -suspect elevated creatinine secondary to GLENN -suspect hypovolemia secondary to sepsis -trend creatinine daily 3. Right sided hydronephrosis -no evidence of kidney stone -UA with no evidence of infection or blood -he states he thinks this may be related to his prostate cancer -monitor clinically if worsens may need urology evaluation 4. Pulmonary embolism -continue warfarin once reconciled -check INR daily CODE: DNR Proxy: Arlet Bueno, daughter I have utilized all [employer] resources to reconcile his home medications. Time Spent With Patient Critical Care time: I spent a total of [] minutes of critical care time on this patient's care today; this time is exclusive of procedural time.
[2022-06-13] MEDS: PIPERACILLIN/TAZO 3.375 GM in SODIUM CHLORIDE 0.9% 100 ML IV (22:00)
[2022-06-13] MEDS: HEPARIN 5,000 UNIT/ML VIAL 5000 UNIT SUBCUT (22:00)
[2022-06-14] VITALS (12 sets, daily range): BP systolic 124–152; BP diastolic 44–78; PULSE 60–88; RESP 13–20; TEMP 35.9–36.7; O2SAT 2–98
[2022-06-14] MEDS: SODIUM CHLORIDE 0.9% 1,000 ML 150 ML IV (00:14)
[2022-06-14] MEDS: ACETAMINOPHEN 325 MG TABLET 650 MG PO ×2 (02:41→19:24)
[2022-06-14] MEDS: ROPINIROLE 0.25 MG TABLET 0.5 MG PO (03:57)
[2022-06-14] MEDS: PIPERACILLIN/TAZO 3.375 GM in SODIUM CHLORIDE 0.9% 100 ML IV ×3 (03:57→20:58)
[2022-06-14 04:55] LABS: INR 2.7 (0.9-1.3); Prothrombin Time 30.9 SECONDS (10.1-12.7)
[2022-06-14 05:00] LABS: BUN Creatinine Ratio 14.5 (6-22); Blood Urea Nitrogen 29 mg/dL (9-20); Calcium 7.9 mg/dL (8.4-10.2); Carbon Dioxide 21 mmol/L (22-32); Chloride 105 mmol/L (98-107); Estimated Glomerular Filt Rate 34 mL/min (>60); Glucose 121 mg/dL (80-110); HEMOLYSIS < 15 (0-50); Sodium 138 mmol/L (137-145)
[2022-06-14 05:04] LABS: Add Manual Diff / Slide Review NO; Basophils Absolute Auto 100 /uL (0-100); Basophils Percent Auto 0.5 % (0-2); Eosinophils Absolute Auto 100 /uL (0-450); Eosinophils Percent Auto 0.5 % (2-4); Hematocrit 31.6 % (41-53); Hemoglobin 10.4 g/dL (13.5-17.5); Lymphocytes Absolute Auto 1200 /uL (1100-4500); Lymphocytes Percent Auto 6.9 % (25-40); Mean Corpuscular HGB Conc 32.7 % (30-36); Mean Corpuscular Hemoglobin 26.8 PG (26-34); Mean Corpuscular Volume 81.9 fL (80-100); Monocytes Absolute Auto 1100 /uL (0-900); Monocytes Percent Auto 6.1 % (3-14); Neutrophils Absolute Auto 15100 /uL (1500-7000); Platelet Count 174 X10^3/uL (150-400); Red Blood Cell Count 3.86 X10^6/uL (4.5-5.9); Red Cell Distribution Width 15.4 % (11.6-14.8); White Blood Cell Count 17.5 X10^3/uL (4.5-11.0)
[2022-06-14 05:14] LABS: Hemoglobin A1C% w Est Avg Glu 8.6 % (4.0-6.0)
[2022-06-14] MEDS: OXYBUTYNIN 5 MG ER TAB 10 MG PO (08:17)
[2022-06-14] MEDS: ROPINIROLE 1 MG TABLET 1.5 MG PO ×3 (08:18→20:52)
[2022-06-14] MEDS: SERTRALINE 50 MG TABLET PO (08:21)
[2022-06-14] MEDS: HEPARIN 5,000 UNIT/ML VIAL 5000 UNIT SUBCUT (08:21)
[2022-06-14] MEDS: INSULIN LISPRO 100 UNIT/ML 3ML VIAL SUBCUT ×4 (08:21→20:55)
[2022-06-14] MEDS: PANTOPRAZOLE DR 40 MG TABLET PO (08:21)
--- NOTE | 2022-06-14 08:33 | PC.NURSE ---
Addendum entered by Mer Parry R.N. 06/14/22 10:19: Pt complained of chest pain, ekg done and results wnl. BP 130s/60s. He states that this was probably when they took the oxygen off, and he states that he does have some anxiety. is aware of this. He is resting comfortably and denies chest pain. Original Note: Assess- Patient is alert and oriented x4, he states that he needs his gabapentin, which has been ordered. He is nauseous and has refused his tray. Blood sugar 166, 1u of insulin given. Patient voided and is sitting up in the chair now. He voided and is comfortable.
[2022-06-14] MEDS: GABAPENTIN 100 MG CAPSULE PO ×3 (08:38→20:52)
--- NOTE | 2022-06-14 13:36 | CM.DANOTE ---
Patient is a 72 yo male who was admitted on 06/13/22 for Vomiting. Pt has [facility] for insurance and his PCP is Dr. Hart. EMR was reviewed. Per MD, pt with a hx of prostrate CA and admitted for Pneumonia, Resp Failure, Sepsis. SW met bedside with pt and explained role and pt confirms he lives at [facility] and has been there about 2 years and typically ambulates independently with a walker and completes his own ADLs. Pt has supportive Dtr/ADAM Nice. Pt currently on oxygen and RT getting an EKG now. SW faxed H&P to [facility] and left msg just to provide update on pt status as pt likely will be able to d/c back pending his progress. Per RN, pt has voided independently and was sitting up in chair and unsure if PT needed at this time. Plan: SW to follow closely in the AM with [facility] towards likely plan of return when stable pending progress. JAYLEN Chandra Discharge Planning/Care Management CM Discharge Assessment Start: 06/14/22 13:34 Freq: Status: Active Protocol: Document 06/14/22 13:35 BF (Rec: 06/14/22 13:36 BF [id number]) Discharge Planning Assessment Assigned Spa Supervisor JAYLEN Ramos/Assigned Designee Name Alex Nice Contact Information [phone] Advance Directives? No: DNR History Provided By Patient,Medical Record Has Patient been admitted in last 30 No days? Prior Living Arrangements Assisted Living Comment [facility] Household Members none Type of transporation used prior to Relies on Others admit Independent with ADL's Yes Is patient alert and oriented? Yes Needs Assistance With Managing Medications,Home Chores / Shopping Caregiver for Another No Community Services used prior to Physical Therapy admission: DME Already Rented / Owned FWW / Walker Barriers to Discharge No Discharge Plan Assisted Living Facility Transportation Arrangement [facility] transport at d/c Referrals Initiated None needed Whiteboard Updated in Patient Room with Yes name and ext. # of Spa Supervisor Review Status In Process Please Provide Date Initial DC 06/14/22 Assessment Was Performed Next Review Type Continued Stay Review
--- NOTE | 2022-06-14 13:50 | P.PN_ITS ---
Subjective Subjective Date Patient Seen: 06/14/22 Time Patient Seen: 08:00 Interval history: This morning he had some chest pressure when he was off oxygen. EKG showed no acute ischemic changes. His symptoms resolved when placed on oxygen. He does not feel significantly different than yesterday. Exam Vital Signs (past 8 hours): - 06/14/22 06:00 06/14/22 07:25 06/14/22 07:00 Temperature 97.1 F L 97.4 F L Pulse Rate 61 66 Respiratory Rate 18 17 Blood Pressure 124/59 L 130/44 L Pulse Oximetry 95 95 Oxygen Delivery Method Room Air Oxygen Flow Rate 2.5 2 06/14/22 09:21 06/14/22 11:00 06/14/22 11:33 Temperature 97.6 F 98.1 F Pulse Rate 60 60 Respiratory Rate 19 19 Blood Pressure 131/53 L 141/68 H Pulse Oximetry 96 2 L 97 Oxygen Delivery Method Room Air Oxygen Flow Rate 2 96 2 Fraction of Inspired Oxygen 96 Oxygen Delivery Method Room Air Oxygen Flow Rate 2 Narrative Exam Narrative: GEN: mild respiratory distress HEENT: dry mucous membranes, PERRL NECK: trachea midline, no JVD PULM: diminished breath sounds bilaterally ABD: soft, tender to palpation, no rebound/guarding CV: regular rate and rhythm, no murmurs EXT: warm and well perfused with no edema NEURO: awake, alert, oriented, no focal deficits Objective Labs Result Diagrams: 06/14/22 04:19 06/14/22 04:19 Labs: Laboratory Results - last 24 hr 06/13/22 06/13/22 06/14/22 14:28 22:30 04:19 WBC 17.5 H RBC 3.86 L Hgb 10.4 L Hct 31.6 L MCV 81.9 MCH 26.8 MCHC 32.7 RDW 15.4 H Plt Count 174 Neut % (Auto) 86.0 H Lymph % (Auto) 6.9 L [place] % (Auto) 6.1 Eos % (Auto) 0.5 L Baso % (Auto) 0.5 Neut # (Auto) 84845 H Lymph # (Auto) 1200 [place] # (Auto) 1100 H Eos # (Auto) 100 Baso # (Auto) 100 PT INR Sodium Potassium Chloride Carbon Dioxide BUN Creatinine Estimated GFR BUN/Creatinine Ratio Glucose Hemoglobin A1c Calcium Urine Color Yellow Urine Appearance Clear Urine pH 5.5 Ur Specific [place] 1.010 Urine Protein Negative Urine Glucose (UA) Negative Urine Ketones Negative Urine Occult Blood Negative Urine Nitrate Negative Urine Bilirubin Negative Urine Urobilinogen 0.2 Ur Leukocyte Esterase Negative Urine RBC None seen Urine WBC 0-1/hpf Ur Squamous Epith Cells 0-1 /hpf Urine Bacteria None seen Ur Culture Indicated? Cult not indicated Nasal Screen MRSA (PCR) Negative for mrsa 06/14/22 06/14/22 06/14/22 04:19 04:19 04:19 WBC RBC Hgb Hct MCV MCH MCHC RDW Plt Count Neut % (Auto) Lymph % (Auto) [place] % (Auto) Eos % (Auto) Baso % (Auto) Neut # (Auto) Lymph # (Auto) [place] # (Auto) Eos # (Auto) Baso # (Auto) PT 30.9 H D INR 2.7 H Sodium 138 Potassium 4.0 Chloride 105 Carbon Dioxide 21 L BUN 29 H Creatinine 2.00 H Estimated GFR 34 L BUN/Creatinine Ratio 14.5 Glucose 121 H D Hemoglobin A1c 8.6 H Calcium 7.9 L Urine Color Urine Appearance Urine pH Ur Specific [place] Urine Protein Urine Glucose (UA) Urine Ketones Urine Occult Blood Urine Nitrate Urine Bilirubin Urine Urobilinogen Ur Leukocyte Esterase Urine RBC Urine WBC Ur Squamous Epith Cells Urine Bacteria Ur Culture Indicated? Nasal Screen MRSA (PCR) [facility] Social History household members: none Smoking Status: Former smoker Assessment & Plan Assessment & Plan narrative: 1. Sepsis secondary to pneumonia with acute hypoxemic respiratory failure -patient with WBC 20, fever, tachycardia, tachypnea with elevated creatinin 2.02 likely glenn secondary to infection -workup on imaging shows lung infiltrate along with elevated procalcitonin -continue antibiotics with zosyn and azithro -mrsa swab negative -check sputum culture -UA negative -follow up blood cultures -wean O2 as able, initially sats in 80s on room air 2. GLENN -initial creatinine 2.02, baseline appears to be 1.3 -suspect elevated creatinine secondary to GLENN -suspect hypovolemia secondary to sepsis -trend creatinine daily 3. Right sided hydronephrosis -no evidence of kidney stone -UA with no evidence of infection or blood -he states he thinks this may be related to his prostate cancer -monitor clinically if worsens may need urology evaluation -will need urology follow up as outpatient 4. Pulmonary embolism -continue warfarin -check INR daily CODE: DNR Proxy: Arlet Bueno, daughter I have utilized all [employer] resources to reconcile his home medications. Time Spent With Patient Critical Care time: I spent a total of [] minutes of critical care time on this patient's care today; this time is exclusive of procedural time.
[2022-06-14] MEDS: WARFARIN 5 MG TABLET 7.5 MG PO (17:35)
[2022-06-14] MEDS: ONDANSETRON 4 MG/2 ML INJ IV (18:15)
[2022-06-14] MEDS: AZITHROMYCIN 500 MG in DEXTROSE 5% IN WATER 250 ML 250 MG IV (19:24)
[2022-06-14] MEDS: METOCLOPRAMIDE 10 MG/2 ML INJ 5 MG IV (20:12)
[2022-06-14] MEDS: PRAMIPEXOLE 0.25 MG TABLET 0.5 MG PO (20:51)
[2022-06-14] MEDS: TRAZODONE 50 MG TABLET 75 MG PO (20:51)
[2022-06-14] MEDS: INSULIN GLARGINE 100 UNIT/ML 3ML PEN 20 UNIT SUBCUT (20:55)
[2022-06-14] MEDS: ATORVASTATIN 20 MG TABLET 40 MG PO (22:31)
[2022-06-14] MEDS: GABAPENTIN 600 MG TABLET PO (22:31)
[2022-06-14] MEDS: TRAMADOL 50 MG TABLET 100 MG PO (23:42)
[2022-06-15] MEDS: ACETAMINOPHEN 325 MG TABLET 650 MG PO (00:34)
[2022-06-15] MEDS: ONDANSETRON 4 MG/2 ML INJ IV (00:34)
[2022-06-15 01:00] VITALS: O2SAT 95
[2022-06-15 03:00] VITALS: BP 136/53; PULSE 62; RESP 20; TEMP 36.2; O2SAT 95
[2022-06-15] MEDS: PIPERACILLIN/TAZO 3.375 GM in SODIUM CHLORIDE 0.9% 100 ML IV (04:24)
[2022-06-15 05:00] VITALS: O2SAT 95
[2022-06-15] MEDS: TRAMADOL 50 MG TABLET 100 MG PO (05:36)
--- NOTE | 2022-06-15 05:38 | PC.NURSE ---
Pt is AxOx4, needs STA and cooperative. VSS, pt c/o feeling nauseous and recieved PRN IV Zofran x1 with good effect. Pt also c/o leg pain and recieved PRN PO Tramadol x1 and Tylenol x1 with good effect. Pt slept well. Pt is on 2L O2 and sats mid 90s. No panick attack or anxiety episode noted overnight. Continue monitor.
[2022-06-15 05:40] LABS: Hemoglobin 9.6 g/dL (13.5-17.5); Mean Corpuscular HGB Conc 33.1 % (30-36); Mean Corpuscular Hemoglobin 26.9 PG (26-34); Mean Corpuscular Volume 81.4 fL (80-100); Platelet Count 195 X10^3/uL (150-400); Red Blood Cell Count 3.56 X10^6/uL (4.5-5.9); Red Cell Distribution Width 15.3 % (11.6-14.8); White Blood Cell Count 11.3 X10^3/uL (4.5-11.0)
[2022-06-15 05:42] LABS: INR 2.2 (0.9-1.3); Prothrombin Time 25.6 SECONDS (10.1-12.7)
[2022-06-15 05:57] LABS: BUN Creatinine Ratio 11.7 (6-22); Blood Urea Nitrogen 21 mg/dL (9-20); Calcium 8.1 mg/dL (8.4-10.2); Carbon Dioxide 22 mmol/L (22-32); Chloride 107 mmol/L (98-107); Estimated Glomerular Filt Rate 39 mL/min (>60); Glucose 130 mg/dL (80-110); HEMOLYSIS < 15 (0-50); Potassium 3.6 mmol/L (3.4-5.1); Sodium 140 mmol/L (137-145)
[2022-06-15] MEDS: INSULIN LISPRO 100 UNIT/ML 3ML VIAL SUBCUT ×2 (07:50→12:15)
[2022-06-15 08:00] VITALS: BP 132/61; PULSE 61; RESP 15; TEMP 36.3; O2SAT 97
[2022-06-15 08:14] LABS: Troponin I < 0.012 ng/mL (0.01-0.034)
[2022-06-15] MEDS: OXYBUTYNIN 5 MG ER TAB 10 MG PO (08:18)
[2022-06-15] MEDS: SERTRALINE 50 MG TABLET PO (08:19)
[2022-06-15] MEDS: GABAPENTIN 600 MG TABLET PO (08:19)
[2022-06-15] MEDS: GABAPENTIN 100 MG CAPSULE PO (08:19)
[2022-06-15] MEDS: METOPROLOL ER 25 MG TABLET 12.5 MG PO (08:19)
[2022-06-15] MEDS: PANTOPRAZOLE DR 40 MG TABLET PO (08:19)
[2022-06-15] MEDS: ROPINIROLE 1 MG TABLET 1.5 MG PO (08:38)
--- NOTE | 2022-06-15 11:37 | PM.DS.1 ---
History of Present Illness History of Present Illness Chief complaint: throwing up Narrative: Mr. Álvarez is a 72M with PMH CAD, PE, s/p ppm, prostate cancer who presents to the hospital with fever, nausea, vomiting, abdominal pain and shortness of breath. He really has had symptoms within the last day. He has had no diarrhea. He has not had any coughing. He does use night time oxygen, but none during the day. He has not had lower leg swelling. He has not had dysuria or difficulty urinating. In the ED workup was done, vitals notable for T 100.8, heart rate in 100s, O2 sats in 80s on room air, respiratory rate in 30s. He was placed on oxygen. Labs notable for WBC 20, hgb 11.9, plts 251. Creatinine 2.02. Trop negative. Procal 0.57. Lactate 3.2, improved with IV fluids. Flu negative. UA negative for infection. Chest xray with low lung volumes and left sided infiltrate. CT abdomen shows proximal right sided hydroureter, hydronephrosis with no kidney stone. Family history: denies history of pulmonary or kidney disease in family Social history: former smoker Discharge Providers Provider Date of admission: 06/13/22 17:32 Discharge Date: 06/15/22 Primary care physician: Doctor Abhinav MD Discharge provider: He Culp MD Summary Hospital Course Discharge Diagnosis: 1. Sepsis secondary to pneumonia, acute hypoxemic respiratory failure 2. GLENN 3. Right sided hydronephrosis 4. History of pulmonary embolism 5. Type 2 Diabetes on insulin 6. Anemia 7. Prostate cancer Hospital Course: Mr. Álvarez was admitted to the hospital with sepsis from pneumonia. He was initially requiring oxygen, but he improved with antibiotics. On day of discharge he was able to wean from oxygen and on room air, though he does use this at night, and his symptoms were much improved. He was discharged with antibiotics. His GLENN improved with IV fluids and his creatinine should continue to be followed as an outpatient. He had focal right sided hydronephrosis with no evidence of stone, and urine with no evidence of infection or blood. It was thought possibly secondary to his prostate cancer. He was encouraged to follow up with urology, and follow up his PCP. Exam Vital Signs (past 8 hours): Fraction of Inspired Oxygen 96 Oxygen Delivery Method Room Air Oxygen Flow Rate 2 Narrative Exam Narrative: GEN: no acute distress HEENT: dry mucous membranes, PERRL NECK: trachea midline, no JVD PULM: clear bilaterally ABD: soft, tender to palpation, no rebound/guarding CV: regular rate and rhythm, no murmurs EXT: warm and well perfused with no edema NEURO: awake, alert, oriented, no focal deficits Objective Labs Result Diagrams: 06/15/22 04:23 06/15/22 04:23 [facility] Medical History Congestive heart failure Diabetes GERD (gastroesophageal reflux disease) Pacemaker Surgical History H/O aortic valve replacement History of back surgery Family History Mother Coronary artery disease involving bypass graft of transplanted heart Cancer Social History (System 06/16/22 @ 08:25 by Steff Caceres) household members: none Smoking Status: Former smoker Discharge Plan Discharge Plan Patient Disposition: Assisted Living Provider Discharge Comment: Mr. Álvarez came in to the hospital and was found to have a pneumonia. He improved with antibiotics. He has some swelling in the tube near his kidney and is referred to a urologist. He should see his PCP within one week. Discharge orders & Medications Discharge Orders: Discharge (Order); Ordered 06/15/22 Ordered By: He Culp Prescriptions: New amoxicillin-pot clavulanate 875-125 mg tablet 1 tab PO BID Qty: 10 0RF Continued acetaminophen 325 mg Tablet 650 mg PO Q4H PRN (Reason: pain) atorvastatin 40 mg Tablet 40 mg PO BEDTIME bicalutamide 50 mg Tablet 50 mg PO DAILY Antacid (calcium carbonate) 215 mg calcium (500 mg) Tablet,Chewable 500 mg DAILY furosemide 40 mg Tablet 40 mg PO DAILY gabapentin 100 mg Tablet 100 mg PO TID gabapentin 300 mg Tablet 600 mg PO TID ferrous sulfate 325 mg (65 mg iron) Tablet 325 mg DAILY metoprolol succinate 25 mg Tablet Extended Release 24 Hr 12.5 mg PO DAILY lisinopril 2.5 mg Tablet 2.5 mg PO DAILY insulin glargine 100 unit/mL Cartridge 55 unit SUBCUT QPM nystatin 100,000 unit/gram Cream 1 applic TOPICAL PRN PRN (Reason: Rash) pramipexole 0.5 mg Tablet 0.5 mg PO BEDTIME pantoprazole 40 mg Tablet,Delayed Release (Dr/Ec) 40 mg PO DAILY ropinirole 1 mg Tablet 1.5 mg PO TID trazodone 50 mg Tablet 75 mg PO BEDTIME tolterodine 4 mg Capsule,Extended Release 24hr 4 mg PO DAILY spironolactone 25 mg Tablet 25 mg PO BID warfarin 5 mg Tablet See Rx Instructions .ROUTE .COMPLEX Rx Instructions: 5 mg orally. QWednesday warfarin 5 mg Tablet See Rx Instructions .ROUTE .COMPLEX Rx Instructions: 5mg, 1.5 tablet PO q mon,tu,maddy,fri,sat,sun sertraline 50 mg Tablet 50 mg PO DAILY tramadol 100 mg Tablet 100 mg PO Q6H PRN (Reason: pain) Rx Instructions: DNExceed 3 doses/24h insulin lispro 100 unit/mL Cartridge 1 sliding scale dose SUBCUT USEASDIRECTD No Action pantoprazole tablet 40 mg PO QAM tolterodine [Detrol LA] 4 mg Capsule,Extended Release 24hr 4 mg PO Q24H Plavix tablet 75 mg PO QAM calcium carbonate 500 mg PO QAM metoprolol succinate 12.5 mg PO QAM Zoloft 100 mg PO QAM insulin glargine 100 unit/mL Cartridge 42 unit SUBCUT BEDTIME gabapentin 600 mg PO TID Mirapex 1 mg PO BEDTIME metformin 500 mg PO BID apixaban 5 mg PO BID insulin lispro 100 unit/mL Insulin Pen See Rx Instructions .ROUTE .COMPLEX Rx Instructions: sliding scale per hospital protocal furosemide [Lasix] 20 mg Tablet 40 mg PO QAM 30 Days Qty: 60 0RF bicalutamide 50 mg tablet 50 mg PO DAILY trazodone 50 mg tablet 50 mg PO BEDTIME ibuprofen 400 mg tablet 400 mg PO PRN PRN (Reason: Pain, Mild) spironolactone 25 mg Tablet 25 mg PO DAILY Qty: 30 0RF lisinopril 5 mg Tablet 2.5 mg PO DAILY Qty: 30 0RF doxycycline hyclate 100 mg capsule 100 mg PO BID Qty: 20 0RF ferrous sulfate [Feosol] 325 mg (65 mg iron) tablet 325 mg PO DAILY tramadol 50 mg tablet 50 mg PO Q8H PRN nystatin-triamcinolone Cream topical loperamide 2 mg tablet 2 mg PO Q6H PRN acetaminophen 325 mg capsule 325 mg PO ONCE PRN Follow up/Referrals: [facility] [Provider Group] (Right proximal hydronephrosis) Doctor La MD [Primary Care Provider] - Discharge Health Status Multidrug resistant organism: No MDRO Diet/Activity/Treatments Diet: Regular Liquid consistency: Normal/Thin Food texture: Regular Visit Report/Discharge Packet Instructions: Pneumonia-Adult, Amoxicillin and Clavulanic Acid Discharge Data Primary Care Provider: Doctor Abhinav
[2022-06-15 13:00] VITALS: PULSE 61; RESP 15; TEMP 36.2; O2SAT 95
--- NOTE | 2022-06-15 15:03 | CM.DPNOTE ---
Discharge Planning Note: Ivory Atkins came for bedside assessment and is accepted to return. Plan is to leave at 1400 today, they will provide transport. Shannan Sandhu RN/DCP
== END 2022-06-15 14:00 | DRG 871 ==
LOC: ED 16:09 → AC 17:33
PROVIDERS: Nurse Practitioner Family; Admitting Provider Internal Medicine; Emergency Provider Emergency Medicine; Referring Provider Emergency Medicine; Visit Provider Internal Medicine
DX: A41.9 Sepsis, unspecified organism (principal); J18.9 Pneumonia, unspecified organism; J96.01 Acute respiratory failure with hypoxia; N17.9 Acute kidney failure, unspecified; N13.30 Unspecified hydronephrosis; R65.20 Severe sepsis without septic shock; E11.9 Type 2 diabetes mellitus without complications; D64.9 Anemia, unspecified; C61 Malignant neoplasm of prostate; K21.9 Gastro-esophageal reflux disease without esophagitis; Z95.0 Presence of cardiac pacemaker; Z66 Do not resuscitate; Z87.891 Personal history of nicotine dependence; Z86.711 Personal history of pulmonary embolism; Z79.01 Long term (current) use of anticoagulants; Z79.4 Long term (current) use of insulin
CPT/HCPCS: 0241U; 36415; 71045; 74176; 80048; 80053; 81001; 82550; 82962; 83036; 83605; 83690; 83880; 84145; 84484; 85025; 85027; 85610; 85730; 87040; 87070; 87086; 87205; 87797; 93005; 94760; 96365; 96375; 99285; 99291; J1644; J1815; J2405; J2543; J2765

== ENCOUNTER → 2022-08-03 15:08 | Outpatient (CLI) | payer MEDICARE, MEDICAID, SELFPAY ==
[2022-06-13 17:58] VITALS: BMI 37.3
[2022-08-03 16:27] LABS: Prostate Specific Antigen 34.2 ng/mL (0.10-4.00)
== END ==
PROVIDERS: PCP Internal Medicine; Referring Provider Urology; Visit Provider Urology
DX: C61 Malignant neoplasm of prostate (principal); N39.3 Stress incontinence (female) (male); N13.30 Unspecified hydronephrosis; Z79.818 Long term (current) use of other agents affecting estrogen receptors and estrogen levels; Z92.3 Personal history of irradiation
CPT/HCPCS: 36415; 51798; 81002; 84153; 99214

== ENCOUNTER → 2022-09-01 13:42 | Outpatient (CLI) | payer MEDICARE, MEDICAID, SELFPAY ==
[2022-06-13 17:58] VITALS: BMI 37.3
--- NOTE | 2022-09-01 13:43 | DI.NM.S_ITS ---
PROCEDURE: NM RENAL FUNCTION W LASIX RADIOPHARMACEUTICAL: 10.6 mCi Tc-99m MAG3 IV and 40 mg furosemide IV. INDICATIONS: New right hydronephrosis, history of prostate cancer TECHNIQUE: The patient was hydrated orally before the examination was begun. After intravenous administration of Tc-99m MAG3, posterior abdominal radionuclide angiogram and sequential (1 minute each frame) renal images were obtained. A time-activity curve for each kidney was generated and analyzed. To evaluate for obstruction, the patient was given 40 mg furosemide via slow intravenous injection after the start of the examination. Sequential images were obtained for up to an additional 20 minutes. COMPARISON: [facility], [place], [place] BONE SCAN WHOLE BODY, 12/24/2021, 15:12. [facility], CT, CT ANGIO CHEST PE PROTOCOL, 04/20/2022, 14:25. [facility], CT, CT ABDOMEN PELVIS WITH CONTRAST, 12/24/2021, 13:25. [facility], CT, CT KIDNEY URETER BLADDER (KUB), 06/13/2022, 11:35. FINDINGS: Perfusion: There is normal vascular flow to left kidney and poor blood flow to the right kidney.. Morphology: The kidneys are normal in size and shape. No dilated collecting left system is seen. The left ureter is nondilated. The right ureter is not visualized. The urinary bladder fill with tracer, and appears normal. Function: The left kidneys demonstrates normal cortical tracer uptake, with [id number] activity ranging from 3 to 5 minutes. There is poor renal cortical uptake and creation by right kidney. The left kidney contributes 81.8% of total renal function. The left kidney contributes 18.2% of total renal function. Lasix stimulation: After diuretic administration, there is prompt clearance of tracer activity from the renal collecting systems in the left kidney. The half-time of emptying of tracer activity from the right pelvicaliceal system is approximately 10 minutes. There was not enough right renal pelvis C0 activity to calculate the clearance of pelvicalyceal activity from the right kidney. Normal emptying half-times are less than 10 minutes; borderline ranges are from 10 to 20 minutes. IMPRESSION: 1. Poor right renal function. Cannot evaluate right renal obstruction due to absence of excreted tracer activity in the right renal collecting system. 2. Normal left renal function. No left renal obstruction. 3. Left kidney contributes 82% and left kidney 18% of total renal function. Dictated by: Patricia Page M.D. on 09/01/2022 at 18:23 Approved by: Patricia Page M.D. on 09/02/2022 at 17:42
== END ==
PROVIDERS: PCP Internal Medicine; Referring Provider Urology; Visit Provider Urology
DX: C61 Malignant neoplasm of prostate (principal); N13.30 Unspecified hydronephrosis; Z92.3 Personal history of irradiation
CPT/HCPCS: 78708; A9562

== ENCOUNTER → 2022-09-15 08:24 | Outpatient (ROUT) | payer MEDICARE, MEDICAID, SELFPAY ==
[2022-09-14 10:49] VITALS: BMI 37.3
[2022-09-15 08:51] LABS: BUN Creatinine Ratio 16.5 (6-22); Blood Urea Nitrogen 40 mg/dL (9-20); Calcium 8.7 mg/dL (8.4-10.2); Carbon Dioxide 26 mmol/L (22-32); Chloride 103 mmol/L (98-107); Estimated Glomerular Filt Rate 27 mL/min (>60); Glucose 161 mg/dL (80-110); HEMOLYSIS < 15 (0-50); Potassium 4.4 mmol/L (3.4-5.1); Sodium 136 mmol/L (137-145)
[2022-09-15 09:22] LABS: Prostate Specific Antigen 30.9 ng/mL (0.10-4.00)
== END ==
PROVIDERS: PCP Internal Medicine; Visit Provider Nurse Practitioner Gerontology
DX: N18.9 Chronic kidney disease, unspecified (principal); C61 Malignant neoplasm of prostate
CPT/HCPCS: 36415; 80048; 84153

== ENCOUNTER → 2022-10-02 14:21 | Outpatient (CLI) | payer MEDICARE, MEDICAID, SELFPAY ==
[2022-09-14 10:49] VITALS: BMI 37.3
[2022-10-02 15:34] LABS: BUN Creatinine Ratio 15.8 (6-22); Blood Urea Nitrogen 35 mg/dL (9-20); Calcium 8.6 mg/dL (8.4-10.2); Carbon Dioxide 20 mmol/L (22-32); Chloride 104 mmol/L (98-107); Estimated Glomerular Filt Rate 30 mL/min (>60); Glucose 285 mg/dL (80-110); HEMOLYSIS < 15 (0-50); Potassium 4.9 mmol/L (3.4-5.1); Sodium 137 mmol/L (137-145)
[2022-10-02 16:03] LABS: Prostate Specific Antigen 45.6 ng/mL (0.10-4.00)
== END ==
PROVIDERS: PCP Internal Medicine; Referring Provider Urology; Visit Provider Urology
DX: C61 Malignant neoplasm of prostate (principal); N17.9 Acute kidney failure, unspecified; N18.9 Chronic kidney disease, unspecified
CPT/HCPCS: 36415; 80048; 84153

== ENCOUNTER → 2022-10-05 15:29 | Outpatient (CLI) | payer MEDICARE, MEDICAID, SELFPAY ==
[2022-09-14 10:49] VITALS: BMI 37.3
== END ==
LOC: LAB 15:33 → RESP 15:34
PROVIDERS: PCP Internal Medicine; Referring Provider Nurse Practitioner Family; Visit Provider Nurse Practitioner Family
DX: I10 Essential (primary) hypertension (principal); I50.22 Chronic systolic (congestive) heart failure
CPT/HCPCS: 93005; 93010

== ENCOUNTER → 2022-10-06 08:04 | Outpatient (ROUT) | payer MEDICARE, MEDICAID, SELFPAY ==
[2022-09-14 10:49] VITALS: BMI 37.3
[2022-10-06 08:34] LABS: Add Manual Diff / Slide Review NO; Basophils Absolute Auto 100 /uL (0-100); Basophils Percent Auto 0.6 % (0-2); Eosinophils Absolute Auto 300 /uL (0-450); Eosinophils Percent Auto 3.3 % (2-4); Hematocrit 30.4 % (41-53); Hemoglobin 10.3 g/dL (13.5-17.5); Lymphocytes Absolute Auto 1500 /uL (1100-4500); Lymphocytes Percent Auto 16.6 % (25-40); Mean Corpuscular Hemoglobin 28.4 PG (26-34); Mean Corpuscular Volume 83.5 fL (80-100); Monocytes Absolute Auto 700 /uL (0-900); Monocytes Percent Auto 7.5 % (3-14); Neutrophils Absolute Auto 6700 /uL (1500-7000); Platelet Count 168 X10^3/uL (150-400); Red Blood Cell Count 3.64 X10^6/uL (4.5-5.9); White Blood Cell Count 9.2 X10^3/uL (4.5-11.0)
== END ==
PROVIDERS: PCP Internal Medicine; Visit Provider Nurse Practitioner Gerontology
DX: N18.9 Chronic kidney disease, unspecified (principal)
CPT/HCPCS: 36415; 85025

== ENCOUNTER → 2022-10-13 07:27 | Outpatient (ROUT) | payer MEDICARE, MEDICAID, SELFPAY ==
[2022-09-14 10:49] VITALS: BMI 37.3
[2022-10-13 08:02] LABS: Alanine Aminotransferase 21 IU/L (<50); Albumin 3.7 g/dL (3.5-5.0); Albumin Globulin Ratio 1.3 (1.0-2.8); Alkaline Phosphatase 89 U/L (38-126); Aspartate Aminotransferase 22 IU/L (17-59); BUN Creatinine Ratio 15.6 (6-22); Bilirubin Total 0.2 mg/dL (0.2-1.3); Blood Urea Nitrogen 39 mg/dL (9-20); Calcium 8.5 mg/dL (8.4-10.2); Carbon Dioxide 24 mmol/L (22-32); Chloride 102 mmol/L (98-107); Cholesterol 161 mg/dL (140-199); Estimated Glomerular Filt Rate 26 mL/min (>60); Globulin 2.9 g/dL (1.7-4.1); Glucose 163 mg/dL (80-110); HDL Cholesterol 25 mg/dL (40-60); HEMOLYSIS < 15 (0-50); LDL Cholesterol Calculated 70 mg/dL (<100); Potassium 4.1 mmol/L (3.4-5.1); Sodium 137 mmol/L (137-145); Total Protein 6.6 g/dL (6.3-8.2); Triglycerides 329 mg/dL (35-150)
== END ==
PROVIDERS: PCP Internal Medicine; Visit Provider Internal Medicine Cardiovascular Disease
DX: Z13.9 Encounter for screening, unspecified (principal)
CPT/HCPCS: 36415; 80053; 80061

== ENCOUNTER 2022-10-18 13:26 | Emergency (ER) | payer MEDICARE, MEDICAID, SELFPAY ==
[2022-09-14 10:49] VITALS: BMI 37.3
[2022-10-18] VITALS (14 sets, daily range): BP systolic 105–148; BP diastolic 52–67; PULSE 60–66; RESP 16–20; TEMP 36.1; O2SAT 92–98; BMI 36.4
--- NOTE | 2022-10-18 14:23 | ED.BACK ---
HPI - Back Pain/Injury General Chief Complaint: Back Pain/Injury Stated Complaint: lower back pain Time Seen by Provider: 10/18/22 14:12 Source: patient and EMS Mode of arrival: EMS History of Present Illness HPI Narrative: Patient is a 72-year-old male. Is here for evaluation of acute on chronic lower back/flank pain. He has had urinary issues in the past. This is secondary to a history of prostate cancer. He is not currently undergoing any specific treatment for this but is under surveillance. He states he knows that he is a swollen right kidney. There are discussions and actually has an appointment with Urology in order to have a stent placed. He does not know specifically when this has been. He does use hydrocodone but he states this is not specifically helping his symptoms. He wanted to come to the emergency department for evaluation. No change in bowel habits. No skin changes. No chest pain. No shortness of breath. No fevers. Related Data Home Medications Medication Instructions Recorded Confirmed Mirapex 1 mg PO BEDTIME 09/29/20 10/02/22 Plavix 75 mg PO QAM 09/29/20 10/02/22 Zoloft 100 mg PO QAM 09/29/20 10/02/22 apixaban 5 mg PO BID 09/29/20 10/02/22 insulin lispro 100 unit/mL See Rx Instructions .Route .COMPLEX 09/29/20 10/02/22 subcutaneous pen metformin 500 mg PO BID 09/29/20 10/02/22 metoprolol succinate 12.5 mg PO QAM 09/29/20 10/02/22 ibuprofen 400 mg tablet 400 mg PO PRN PRN Pain, Mild 10/23/20 10/02/22 loperamide 2 mg tablet 2 mg PO Q6H PRN 04/22/21 10/02/22 nystatin-triamcinolone topical applic topical 04/22/21 10/02/22 cream acetaminophen 325 mg tablet 650 mg PO Q4H PRN pain 06/13/22 10/02/22 atorvastatin 40 mg tablet 40 mg PO BEDTIME 06/13/22 10/02/22 calcium carbonate 215 mg calcium 500 mg DAILY 06/13/22 10/02/22 (500 mg) chewable tablet (Antacid (calcium carbonate)) ferrous sulfate 325 mg (65 mg 325 mg DAILY 06/13/22 10/02/22 iron) tablet furosemide 40 mg tablet 40 mg PO DAILY 06/13/22 10/02/22 gabapentin 100 mg tablet 100 mg PO TID 06/13/22 10/02/22 gabapentin 300 mg tablet 600 mg PO TID 06/13/22 10/02/22 insulin glargine 100 unit/mL 55 unit SUBCUT QPM 06/13/22 10/02/22 subcutaneous cartridge insulin lispro 100 unit/mL 1 sliding scale dose SUBCUT 06/13/22 10/02/22 subcutaneous cartridge USEASDIRECTD lisinopril 2.5 mg tablet 2.5 mg PO DAILY 06/13/22 10/02/22 metoprolol succinate 25 mg 12.5 mg PO DAILY 06/13/22 10/02/22 tablet,extended release 24 hr nystatin 100,000 unit/gram topical 1 applic topical PRN PRN Rash 06/13/22 10/02/22 cream pantoprazole 40 mg tablet,delayed 40 mg PO DAILY 06/13/22 10/02/22 release pramipexole 0.5 mg tablet 0.5 mg PO BEDTIME 06/13/22 10/02/22 ropinirole 1 mg tablet 1.5 mg PO TID 06/13/22 10/02/22 sertraline 50 mg tablet 50 mg PO DAILY 06/13/22 10/02/22 spironolactone 25 mg tablet 25 mg PO BID 06/13/22 10/02/22 tolterodine 4 mg capsule,extended 4 mg PO DAILY 06/13/22 10/02/22 release 24 hr tramadol 100 mg tablet 100 mg PO Q6H PRN pain 06/13/22 10/02/22 trazodone 50 mg tablet 75 mg PO BEDTIME 06/13/22 10/02/22 warfarin 5 mg tablet See Rx Instructions .Route .COMPLEX 06/13/22 10/02/22 warfarin 5 mg tablet See Rx Instructions .Route .COMPLEX 06/13/22 10/02/22 hydroxyzine pamoate 25 mg capsule 25 mg PO BEDTIME 08/03/22 10/02/22 (Vistaril) Previous Rx's Medication Instructions Recorded cephalexin 500 mg capsule 500 mg PO BID 7 days #14 caps 10/18/22 hydrocodone 5 mg-acetaminophen 325 2 tab PO Q6H PRN pain #30 tabs 10/18/22 mg tablet Allergies Allergy/AdvReac Type Severity Reaction Status Date / Time aspartame Allergy Unknown Verified 10/18/22 16:23 carbidopa Allergy Verified 10/18/22 16:23 crab Allergy Verified 10/18/22 16:23 morphine Allergy Verified 10/18/22 16:23 Review of Systems Review of Systems ROS Unobtainable: All systems reviewed & are unremarkable except as noted in HPI and below Patient History Medical History Androgen deprivation therapy Arthritis Congestive heart failure Depression Diabetes GERD (gastroesophageal reflux disease) Gout History of prostate cancer History of radiation therapy Hydronephrosis, right Hypertension Osteoarthritis Pacemaker Prostate cancer Stress incontinence, male Surgical History (System 06/16/22 @ 08:25 by Steff Caceres) H/O aortic valve replacement History of back surgery Family History (Updated 08/03/22 @ 14:19 by Kalyn Brothers RN) Mother Coronary artery disease involving bypass graft of transplanted heart Cancer Hypertension Social History marital status: number of children: 3 household members: none Previous occupational history: retired Smoking Status: Former smoker alcohol intake: current caffeine: Yes Smoking Status: Former smoker tobacco type: cigarettes alcohol intake frequency: 0-2 drinks per day Substance Use Type: does not use and former substance user Exam Initial Vital Signs Initial Vital Signs: Vital Signs Temperature 97.0 F L 10/18/22 13:52 Pulse Rate 64 10/18/22 13:52 Respiratory Rate 16 10/18/22 13:52 Blood Pressure 105/52 L 10/18/22 13:52 Pulse Oximetry 96 10/18/22 13:52 Oxygen Delivery Method Room Air 10/18/22 13:52 Const General: cooperative HENMT Head: normal to inspection and normocephalic Resp Effort & Inspection: normal respiratory effort Auscultation: clear to auscultation bilaterally Cardio Rate: regular rate Rhythm: regular rhythm GI Inspection: normal to inspection Palpation: tender (Slightly tender lower abdominal area) Back/Spine/Pelvis Other: Discomfort is located over the right CVA but nonspecifically tender to palpation Skin General: no rashes or lesions noted Neuro General: patient alert, patient awake, patient oriented x3 and moves all extremities Extrem General: capillary refill normal Scores GCS Bronson coma scale eye opening: Spontaneous [place] coma scale verbal response: Orientated Bronson coma scale motor response: Obey commands Bronson coma scale total score: 15 Course Orders Ordered: ED Orders 10/18/22 14:24 US renal complete Stat 10/18/22 14:35 Complete Blood Count AUTO DIFF Stat Comprehensive Metabolic Panel Stat 10/18/22 14:51 Urinalysis and Microscopic Stat Urine Culture Stat 10/18/22 16:22 CT abdomen pelvis wo con Stat Discontinued Medications Cephalexin HCl (Cephalexin 250 Mg Capsule) 500 mg PO NOW ONE Stop: 10/18/22 17:55 Last Admin: 10/18/22 18:54 Dose: 500 mg Documented By: RB Hydromorphone HCl (Hydromorphone 0.5 Mg Inj) 0.5 mg IV NOW ONE Stop: 10/18/22 15:40 Last Admin: 10/18/22 16:11 Dose: 0.5 mg Documented By: RB Vital Signs Vital signs: Vital Signs - 8 hr 10/18/22 13:52 10/18/22 14:10 10/18/22 14:30 Temperature 97.0 F L Pulse Rate 64 62 64 Respiratory Rate 16 Blood Pressure 105/52 L Pulse Oximetry 96 97 94 Oxygen Delivery Method Room Air 10/18/22 14:32 10/18/22 14:32 10/18/22 15:00 Temperature Pulse Rate 63 Respiratory Rate 16 Blood Pressure 120/66 130/58 L Pulse Oximetry 95 Oxygen Delivery Method Room Air 10/18/22 15:00 10/18/22 15:30 10/18/22 15:30 Temperature Pulse Rate 60 60 Respiratory Rate 18 Blood Pressure 119/61 Pulse Oximetry 92 94 Oxygen Delivery Method Room Air 10/18/22 16:00 10/18/22 16:13 10/18/22 16:13 Temperature Pulse Rate 61 63 Respiratory Rate Blood Pressure 133/65 Pulse Oximetry 95 98 Oxygen Delivery Method 10/18/22 16:38 10/18/22 17:00 10/18/22 17:00 Temperature Pulse Rate 64 66 Respiratory Rate Blood Pressure 148/64 H Pulse Oximetry 98 92 Oxygen Delivery Method MDM - Back Pain/Injury Medical Records Attestation: I reviewed the patient's medical records. Lab Data Attestation: I reviewed the patient's lab results. 10/18/22 14:35 10/18/22 14:35 Labs: Lab Results 10/18/22 10/18/22 10/18/22 Range/Units 14:35 14:35 14:51 WBC 10.0 (4.5-11.0) X10^3/uL RBC 4.02 L (4.5-5.9) X10^6/uL Hgb 11.4 L (13.5-17.5) g/dL Hct 33.4 L (41-53) % MCV 83.1 (80-100) fL MCH 28.3 (26-34) PG MCHC 34.1 (30-36) % RDW 16.5 H (11.6-14.8) % Plt Count 216 (150-400) X10^3/uL Neut % (Auto) 84.4 H (50-75) % Lymph % (Auto) 8.3 L (25-40) % [place] % (Auto) 4.3 (3-14) % Eos % (Auto) 1.6 L (2-4) % Baso % (Auto) 1.4 (0-2) % Neut # (Auto) 8500 H (5254-3340) /uL Lymph # (Auto) 800 L (7862-9778) /uL [place] # (Auto) 400 (0-900) /uL Eos # (Auto) 200 (0-450) /uL Baso # (Auto) 100 (0-100) /uL Sodium 135 L (137-145) mmol/L Potassium 4.9 (3.4-5.1) mmol/L Chloride 101 (98-107) mmol/L Carbon Dioxide 26 (22-32) mmol/L BUN 36 H (9-20) mg/dL Creatinine 2.36 H (0.66-1.25) mg/dL Estimated GFR 28 L (>60) mL/min BUN/Creatinine Ratio 15.3 (6-22) Glucose 178 H (80-110) mg/dL Calcium 8.9 (8.4-10.2) mg/dL Total Bilirubin 0.4 (0.2-1.3) mg/dL AST 21 (17-59) IU/L ALT 23 (<50) IU/L Alkaline Phosphatase 99 (38-126) U/L Total Protein 7.6 (6.3-8.2) g/dL Albumin 4.3 (3.5-5.0) g/dL Globulin 3.3 (1.7-4.1) g/dL Albumin/Globulin Ratio 1.3 (1.0-2.8) Urine Color Yellow Urine Appearance Sl cloudy Urine pH 7.5 (4.5-8.0) Ur Specific Echo <=1.005 (1.000-1.035) Urine Protein Negative (Negative) Urine Glucose (UA) Negative (Negative) g/dL Urine Ketones Negative (NEGATIVE) Urine Occult Blood 1+ H (Negative) Urine Nitrate Negative (Negative) Urine Bilirubin Negative (NEGATIVE) Urine Urobilinogen 0.2 (0.2) E.U./dL Ur Leukocyte Esterase 3+ H (NEGATIVE) Urine RBC 1-5/hpf (0-5/HPF) Urine WBC 5-10/hpf H (0-5/HPF) Ur Squamous Epith Cells 0-1 /hpf (0-5/HPF) Triple Phos Crystals Many Urine Bacteria Many (>30) H (None) Imaging Data Renal ultrasound: Radiologist's Impression: PROCEDURE:? US RENAL COMPLETE ? INDICATIONS:? LEFT FLANK PAIN. HISTORY OF HYDRONEPHROSIS. ? TECHNIQUE:? Real-time scanning was performed of the kidneys and bladder, with image documentation.? ? COMPARISON:? [facility], CT, CT CHEST ABDOMEN PELVIS WITHOUT CONTRAST, 09/14/2022, 9:49.? [facility], CT, CT ABDOMEN PELVIS WO CON, 10/18/2022, 16:34.? [facility], [place], [place] RENAL FUNCTION W LASIX, 09/01/2022, 13:58.? [facility], CT, CT KIDNEY URETER BLADDER (KUB), 06/13/2022, 11:35. ? FINDINGS:? ? Kidneys:? Kidneys are normal in size.? Right kidney measures 13 cm long; left kidney measures 12.8 cm long.? Right renal cortical thickness is 1.4 cm; left renal cortical thickness is 4 cm.? Renal cortical echotexture is normal.? No suspicious solid mass lesions.? The left kidney demonstrates a lobular contour.? ? Hyperechoic foci can be seen within the right kidney.? However, no stones are seen on the accompanying CT examination and this is most likely artifactual. ? Moderate to severe right-sided hydronephrosis is seen.? The right proximal ureter is dilated up to 1.1 cm proximally and 1.3 cm within the mid and distal ureter.? Adjacent to the right distal ureter, there is a soft tissue focus seen that measures 4.3 x 3.5 x 3 cm.? No abnormal vascularity can be seen.? ? Bladder:? Pre-void bladder volume is 136 mL.? Minimal seen.? The patient does self catheterization.? Along the posterior urinary bladder, there is apparent layering soft tissue material.? On pre-void images, only the left ureteral jet can be seen with color Doppler interrogation.? (Of note, ureteral jets may not be detectable in up to 25% of cases due to insufficient differences in specific gravity between ureteral and bladder urine).? ? Miscellaneous:? No free pelvic fluid.? IMPRESSION:? Moderate to severe right-sided hydronephrosis is seen. ? A soft tissue mass can be seen within the right pelvis adjacent to the distal ureter.? This was previously seen by CT, and is likely related to enlarged lymph nodes. ? Apparent layering debris seen within the urinary bladder.? Please correlate with hematuria versus UTI.? CT abdomen pelvis: Radiologist's Impression: PROCEDURE:? CT ABDOMEN PELVIS WO CON ? INDICATIONS:? Right hydro with mass in right pelvis noted on ultrasound ? TECHNIQUE:? Axial sections were acquired from the lung bases to the pubic symphysis.? Coronal and sagittal reformats were performed.? For radiation dose reduction, the following was used: ?automated exposure control, adjustment of mA and/or kV according to patient size.? ? COMPARISON:? [facility], CT, CT CHEST ABDOMEN PELVIS WITHOUT CONTRAST, 09/14/2022, 9:49. ? FINDINGS:? Image quality:? Excellent.? ? Lung bases:? Unremarkable.? ? Heart:? An AICD lead can be seen. A percutaneously placed aortic valve replacement can be seen.? ? URINARY: Right Kidney:? Moderate to severe right-sided hydronephrosis is seen.? No right-sided kidney stones are seen.? Right Ureter:? Moderate to severe right hydroureter can be seen down to the level of the pelvis. ? Left Kidney: ? No stones or hydronephrosis. Left Ureter:? No hydroureter.? ? Bladder:? Normal wall thickness. No stones. ? ? ? ABDOMEN: Liver:? Unremarkable.? ? Gallbladder:? Unremarkable.? ? Biliary ducts:? Unremarkable.? ? Pancreas:? Unremarkable.? ? Spleen:? The spleen is enlarged, measuring 16.3 cm AP. Adrenal Glands:? Unremarkable.? ? ? Stomach and Bowel:? Stomach, small bowel loops, and colon are unremarkable.? Colonic diverticulosis is seen, without findings of active diverticulitis. Peritoneum:? No abnormal intraperitoneal fluid.? No free air.? ? Ventral Wall: A mild periumbilical hernia is seen, containing fat. ? Abdominal Nodes:? Mildly enlarged retroperitoneal lymph nodes are again seen, which are similar to the prior examination.? No frankly enlarged upper abdominal lymph nodes are seen. Vessels:? Aorta and inferior vena cava are normal in size.? ? PELVIS: Pelvic Organs:? Prostate clips are seen. Pelvic Nodes:? Nodular opacity can be seen within the right posterior pelvis adjacent to the right common iliac artery, which measures approximately 4.4 x 3.7 cm.? This is similar to the prior CT and is attributed to enlarged lymph nodes. Miscellaneous:? Bilateral fat containing inguinal hernias are seen. ? Bones:? Mild levoconvex scoliotic curvature is seen.? Focal L5-S1 degenerative change is seen.? Milder degenerative changes are seen elsewhere.? ? IMPRESSION:? ? There is again seen right-sided hydroureter and hydronephrosis, which is mildly worse on the current study than on the 09/14/2022.? 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 ? Mildly enlarged retroperitoneal lymph nodes are again seen. ? ? Additional findings:? AICD Prosthetic aortic valve Splenomegaly Mild fat containing periumbilical hernia Diverticulosis, without active diverticulitis Levoconvex scoliotic curvature Are focal L5-S1 degenerative change Mild bilateral fat containing inguinal hernias MDM Narrative Medical decision making narrative: Patient is nontoxic appearing. He does have white blood cells and bacteria in his urine. But no specific UTI like symptoms. The CT scan today is somewhat consistent with a cystitis. Because of this we will treat him with antibiotics. He does have right-sided hydro. It is only slightly worse than prior CT scan. This appears to be because of a right lower quadrant lymph node that is pressing on the ureter. He is being followed by urology and is scheduled to have a stent placed. I do not feel based on his presentation in his labs in his workup here in the emergency department that needs to happen emergently. He is afebrile. We also discussed his pain control. It appears that he is only been getting the hydrocodone 2 tablets at night. He is only taking Tylenol during the day. We will increase his pain control. Written prescriptions were given to him per his request. He was given return precautions. He expressed understanding and agreement. Discharge Plan Departure Patient Disposition: Home Clinical Impression: Acute UTI, Hydronephrosis Instructions: DI for Urinary Tract Infection (UTI), DI for Hydronephrosis-Adult Activity Restrictions/Additional Instructions: I do recommend that you continue to take all of your medications as directed. It is also important that you keep your follow-up appointment with Urology as it appears that there is a large lymph node in your right inguinal area that is causing pressure on the ureter which then also causing swelling of your right kidney. Return to the emergency department for any new or worsening symptoms. Prescriptions: New cephalexin 500 mg capsule 500 mg PO BID 7 Days Qty: 14 0RF hydrocodone-acetaminophen 5-325 mg tablet 2 tab PO Q6H PRN (Reason: pain) Qty: 30 0RF No Action Plavix tablet 75 mg PO QAM metoprolol succinate 12.5 mg PO QAM Zoloft 100 mg PO QAM Mirapex 1 mg PO BEDTIME metformin 500 mg PO BID apixaban 5 mg PO BID insulin lispro 100 unit/mL Insulin Pen See Rx Instructions .ROUTE .COMPLEX Rx Instructions: sliding scale per hospital protocal ibuprofen 400 mg tablet 400 mg PO PRN PRN (Reason: Pain, Mild) acetaminophen 325 mg Tablet 650 mg PO Q4H PRN (Reason: pain) atorvastatin 40 mg Tablet 40 mg PO BEDTIME Antacid (calcium carbonate) 215 mg calcium (500 mg) Tablet,Chewable 500 mg DAILY furosemide 40 mg Tablet 40 mg PO DAILY gabapentin 100 mg Tablet 100 mg PO TID gabapentin 300 mg Tablet 600 mg PO TID ferrous sulfate 325 mg (65 mg iron) Tablet 325 mg DAILY metoprolol succinate 25 mg Tablet Extended Release 24 Hr 12.5 mg PO DAILY lisinopril 2.5 mg Tablet 2.5 mg PO DAILY insulin glargine 100 unit/mL Cartridge 55 unit SUBCUT QPM nystatin 100,000 unit/gram Cream 1 applic TOPICAL PRN PRN (Reason: Rash) pramipexole 0.5 mg Tablet 0.5 mg PO BEDTIME pantoprazole 40 mg Tablet,Delayed Release (Dr/Ec) 40 mg PO DAILY ropinirole 1 mg Tablet 1.5 mg PO TID trazodone 50 mg Tablet 75 mg PO BEDTIME tolterodine 4 mg Capsule,Extended Release 24hr 4 mg PO DAILY spironolactone 25 mg Tablet 25 mg PO BID warfarin 5 mg Tablet See Rx Instructions .ROUTE .COMPLEX Rx Instructions: 5 mg orally. QWedn warfarin 5 mg Tablet See Rx Instructions .ROUTE .COMPLEX Rx Instructions: 5mg, 1.5 tablet PO q mon,tu,maddy,fri,sat,sun sertraline 50 mg Tablet 50 mg PO DAILY tramadol 100 mg Tablet 100 mg PO Q6H PRN (Reason: pain) Rx Instructions: DNExceed 3 doses/24h insulin lispro 100 unit/mL Cartridge 1 sliding scale dose SUBCUT USEASDIRECTD nystatin-triamcinolone Cream topical loperamide 2 mg tablet 2 mg PO Q6H PRN hydroxyzine pamoate [Vistaril] 25 mg capsule 25 mg PO BEDTIME Referrals: Vandana Hart MD [Primary Care Provider] - Stand Alone Forms: Patient Portal/API
--- NOTE | 2022-10-18 14:24 | DI.US.S_ITS ---
PROCEDURE: US RENAL COMPLETE INDICATIONS: LEFT FLANK PAIN. HISTORY OF HYDRONEPHROSIS. TECHNIQUE: Real-time scanning was performed of the kidneys and bladder, with image documentation. COMPARISON: [facility], CT, CT CHEST ABDOMEN PELVIS WITHOUT CONTRAST, 09/14/2022, 9:49. [facility], CT, CT ABDOMEN PELVIS WO CON, 10/18/2022, 16:34. [facility], [place], [place] RENAL FUNCTION W LASIX, 09/01/2022, 13:58. [facility], CT, CT KIDNEY URETER BLADDER (KUB), 06/13/2022, 11:35. FINDINGS: Kidneys: Kidneys are normal in size. Right kidney measures 13 cm long; left kidney measures 12.8 cm long. Right renal cortical thickness is 1.4 cm; left renal cortical thickness is 4 cm. Renal cortical echotexture is normal. No suspicious solid mass lesions. The left kidney demonstrates a lobular contour. Hyperechoic foci can be seen within the right kidney. However, no stones are seen on the accompanying CT examination and this is most likely artifactual. Moderate to severe right-sided hydronephrosis is seen. The right proximal ureter is dilated up to 1.1 cm proximally and 1.3 cm within the mid and distal ureter. Adjacent to the right distal ureter, there is a soft tissue focus seen that measures 4.3 x 3.5 x 3 cm. No abnormal vascularity can be seen. Bladder: Pre-void bladder volume is 136 mL. Minimal seen. The patient does self catheterization. Along the posterior urinary bladder, there is apparent layering soft tissue material. On pre-void images, only the left ureteral jet can be seen with color Doppler interrogation. (Of note, ureteral jets may not be detectable in up to 25% of cases due to insufficient differences in specific gravity between ureteral and bladder urine). Miscellaneous: No free pelvic fluid. IMPRESSION: Moderate to severe right-sided hydronephrosis is seen. A soft tissue mass can be seen within the right pelvis adjacent to the distal ureter. This was previously seen by CT, and is likely related to enlarged lymph nodes. Apparent layering debris seen within the urinary bladder. Please correlate with hematuria versus UTI. Dictated by: Yong Morley M.D. on 10/18/2022 at 16:06 Approved by: Yong Morley M.D. on 10/18/2022 at 16:11
[2022-10-18 14:54] LABS: Alanine Aminotransferase 23 IU/L (<50); Albumin 4.3 g/dL (3.5-5.0); Albumin Globulin Ratio 1.3 (1.0-2.8); Alkaline Phosphatase 99 U/L (38-126); Aspartate Aminotransferase 21 IU/L (17-59); BUN Creatinine Ratio 15.3 (6-22); Bilirubin Total 0.4 mg/dL (0.2-1.3); Blood Urea Nitrogen 36 mg/dL (9-20); Calcium 8.9 mg/dL (8.4-10.2); Carbon Dioxide 26 mmol/L (22-32); Chloride 101 mmol/L (98-107); Estimated Glomerular Filt Rate 28 mL/min (>60); Globulin 3.3 g/dL (1.7-4.1); Glucose 178 mg/dL (80-110); HEMOLYSIS < 15 (0-50); Potassium 4.9 mmol/L (3.4-5.1); Sodium 135 mmol/L (137-145); Total Protein 7.6 g/dL (6.3-8.2)
[2022-10-18 14:58] LABS: Appearance Urine UA SL CLOUDY; Bilirubin Urine UA NEGATIVE (NEGATIVE); Color Urine UA YELLOW; Glucose Urine UA NEGATIVE (Negative); Ketones Urine UA NEGATIVE (NEGATIVE); Leukocyte Esterase Urine UA 3+ (NEGATIVE); Nitrite Urine UA NEGATIVE (Negative); Occult Blood Urine UA 1+ (Negative); Protein Urine UA NEGATIVE (Negative); Specific Gravity Urine UA <=1.005 (1.000-1.035); Urobilinogen Urine UA 0.2 E.U./dL (0.2); pH Urine UA 7.5 (4.5-8.0)
[2022-10-18 15:09] LABS: Add Manual Diff / Slide Review NO; Basophils Absolute Auto 100 /uL (0-100); Basophils Percent Auto 1.4 % (0-2); Eosinophils Absolute Auto 200 /uL (0-450); Eosinophils Percent Auto 1.6 % (2-4); Hematocrit 33.4 % (41-53); Hemoglobin 11.4 g/dL (13.5-17.5); Lymphocytes Absolute Auto 800 /uL (1100-4500); Lymphocytes Percent Auto 8.3 % (25-40); Mean Corpuscular HGB Conc 34.1 % (30-36); Mean Corpuscular Hemoglobin 28.3 PG (26-34); Mean Corpuscular Volume 83.1 fL (80-100); Monocytes Absolute Auto 400 /uL (0-900); Monocytes Percent Auto 4.3 % (3-14); Neutrophils Absolute Auto 8500 /uL (1500-7000); Neutrophils Percent Auto 84.4 % (50-75); Platelet Count 216 X10^3/uL (150-400); Red Blood Cell Count 4.02 X10^6/uL (4.5-5.9); Red Cell Distribution Width 16.5 % (11.6-14.8)
[2022-10-18 15:36] LABS: RBC Urine 1-5/HPF (0-5/HPF); Squamous Epithelial Cell Urine 0-1 /HPF (0-5/HPF); WBC Urine 5-10/HPF (0-5/HPF)
[2022-10-18 15:37] LABS: Bacteria Urine Many (>30); Triple Phosphate Crystal Urine Many
[2022-10-18] MEDS: HYDROMORPHONE 0.5 MG INJ IV ×2 (16:11→19:05)
--- NOTE | 2022-10-18 16:22 | DI.CT.S_ITS ---
PROCEDURE: CT ABDOMEN PELVIS WO CON INDICATIONS: Right hydro with mass in right pelvis noted on ultrasound TECHNIQUE: Axial sections were acquired from the lung bases to the pubic symphysis. Coronal and sagittal reformats were performed. For radiation dose reduction, the following was used: automated exposure control, adjustment of mA and/or kV according to patient size. COMPARISON: [facility], CT, CT CHEST ABDOMEN PELVIS WITHOUT CONTRAST, 09/14/2022, 9:49. FINDINGS: Image quality: Excellent. Lung bases: Unremarkable. Heart: An AICD lead can be seen. A percutaneously placed aortic valve replacement can be seen. URINARY: Right Kidney: Moderate to severe right-sided hydronephrosis is seen. No right-sided kidney stones are seen. Right Ureter: Moderate to severe right hydroureter can be seen down to the level of the pelvis. Left Kidney: No stones or hydronephrosis. Left Ureter: No hydroureter. Bladder: Normal wall thickness. No stones. ABDOMEN: Liver: Unremarkable. Gallbladder: Unremarkable. Biliary ducts: Unremarkable. Pancreas: Unremarkable. Spleen: The spleen is enlarged, measuring 16.3 cm AP. Adrenal Glands: Unremarkable. Stomach and Bowel: Stomach, small bowel loops, and colon are unremarkable. Colonic diverticulosis is seen, without findings of active diverticulitis. Peritoneum: No abnormal intraperitoneal fluid. No free air. Ventral Wall: A mild periumbilical hernia is seen, containing fat. Abdominal Nodes: Mildly enlarged retroperitoneal lymph nodes are again seen, which are similar to the prior examination. No frankly enlarged upper abdominal lymph nodes are seen. Vessels: Aorta and inferior vena cava are normal in size. PELVIS: Pelvic Organs: Prostate clips are seen. Pelvic Nodes: Nodular opacity can be seen within the right posterior pelvis adjacent to the right common iliac artery, which measures approximately 4.4 x 3.7 cm. This is similar to the prior CT and is attributed to enlarged lymph nodes. Miscellaneous: Bilateral fat containing inguinal hernias are seen. Bones: Mild levoconvex scoliotic curvature is seen. Focal L5-S1 degenerative change is seen. Milder degenerative changes are seen elsewhere. IMPRESSION: There is again seen right-sided hydroureter and hydronephrosis, which is mildly worse on the current study than on the 09/14/2022. 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 Mildly enlarged retroperitoneal lymph nodes are again seen. Additional findings: AICD Prosthetic aortic valve Splenomegaly Mild fat containing periumbilical hernia Diverticulosis, without active diverticulitis Levoconvex scoliotic curvature Are focal L5-S1 degenerative change Mild bilateral fat containing inguinal hernias Dictated by: Yong Morley M.D. on 10/18/2022 at 16:11 Approved by: Yong Morley M.D. on 10/18/2022 at 16:16
[2022-10-18] MEDS: cephALEXin 250 MG CAPSULE 500 MG PO (18:54)
--- NOTE | 2022-10-18 19:15 | PC.NURSE ---
This RN gave report to ANOOP Reese at [facility] prior to patient discharge.
== END 2022-10-18 20:23 | disposition home or self-care (01) ==
PROVIDERS: Emergency Provider Emergency Medicine; PCP Internal Medicine
DX: N39.0 Urinary tract infection, site not specified (principal); N13.30 Unspecified hydronephrosis; R10.9 Unspecified abdominal pain; Z79.01 Long term (current) use of anticoagulants; Z79.899 Other long term (current) drug therapy
CPT/HCPCS: 36415; 74176; 76770; 80053; 81001; 85025; 87077; 87086; 87186; 96374; 96376; 99284; J1170

== ENCOUNTER 2022-10-29 08:07 | Emergency (ER) | payer MEDICARE, MEDICAID, SELFPAY ==
[2022-09-14 10:49] VITALS: BMI 37.3
[2022-10-29] VITALS (51 sets, daily range): BP systolic 87–152; BP diastolic 45–71; PULSE 60–73; RESP 13–28; TEMP 36.9; O2SAT 92–98; BMI 36.4
--- NOTE | 2022-10-29 08:53 | DI.CT.S_ITS ---
PROCEDURE: CT KIDNEY URETER BLADDER (KUB) INDICATIONS: back pain TECHNIQUE: Axial sections were acquired from the lung bases to the pubic symphysis. Coronal and sagittal reformats were performed. For radiation dose reduction, the following was used: automated exposure control, adjustment of mA and/or kV according to patient size. COMPARISON: [facility], CT, CT KIDNEY URETER BLADDER (KUB), 06/13/2022, 11:35. FINDINGS: Image quality: Excellent. Lung bases: Unremarkable. Heart: Cardiomegaly URINARY: Right Kidney: Moderate right-sided hydronephrosis, similar to prior. No obstructing stone. Right Ureter: Moderate right-sided hydroureter. There is a transition point as the ureter passes through the right pelvic mass (see below under pelvic lymph nodes). Left Kidney: No stones or hydronephrosis. Left Ureter: No hydroureter. Bladder: Normal wall thickness. No stones. ABDOMEN: Liver: Unremarkable. Gallbladder: Unremarkable. Biliary ducts: Unremarkable. Pancreas: Unremarkable. Spleen: Splenomegaly. Adrenal Glands: Unremarkable. Stomach and Bowel: Stomach, small bowel loops, and colon are unremarkable. Colonic diverticulosis without evidence of diverticulitis. Peritoneum: No abnormal intraperitoneal fluid. No free air. Ventral Wall: No hernia. Abdominal Nodes: Growing retroperitoneal lymph nodes. Examples include: -1.7 centimeter aortocaval node, previously 0.7 centimeters (/). -1.4 centimeter aortocaval node, previously 0.7 centimeters (series 2, image 47). Vessels: Aorta and inferior vena cava are normal in size. PELVIS: Pelvic Organs: Mildly atrophic prostate, with fiducial markers. Pelvic Nodes: Growing right common iliac chain node measuring 4.4 x 5.5 centimeters, previously 3.4 x 4.4 centimeters (series 2, image 70 1). Miscellaneous: No inguinal hernias are seen. Bones: Unremarkable. IMPRESSION: Obstruction of the mid right ureter caused by a right common iliac chain mass, presumably an abnormal lymph node. Additionally, there are growing retroperitoneal lymph nodes. Findings are likely related to prostate cancer. Dictated by: Ramone Anne M.D. on 10/29/2022 at 9:23 Approved by: Ramone Anne M.D. on 10/29/2022 at 9:29
--- NOTE | 2022-10-29 08:55 | ED_ITS ---
HPI - Back Pain/Injury <Delvin Chavarria MD - Last Filed: 11/05/22 05:45> General Chief Complaint: Back Pain/Injury Stated Complaint: back pain Time Seen by Provider: 10/29/22 08:50 Source: patient and EMS History of Present Illness HPI Narrative: Patient brought in by ambulance from half-way for complains of back pain and chills. Patient seen here 11 days ago for UTI, CT scan imaging, patient did see urologist October 22 and scheduled for ureteral stent. Patient has been prescribed pain medication and nausea medication without any relief. Patient has history of prostate cancer. Please see CT report and urology office report below. Urine culture positive Proteus mirabilis. Sensitive to cephalexin, patient sent home on cephalexin. HPI Details: This 72-year-old male returns to urology clinic in preparation for cystoscopy with right retrograde pyelogram possible stent placement.? Patient does have prostate cancer has an enlarged lymph node which may be metastatic prostate cancer.? We have received from the blanket inspector his cardiac clearance instructions for managing his anticoagulation.? Patient's questions were answered and he wishes to proceed again the procedure, risks, alternatives were discussed with the patient his questions were answered.? Risks to include but not limited to bleeding, infection, injury to surrounding structures, failure to determine the cause of the obstruction, failure to be able to place a stent to relieve the obstruction possible need for percutaneous nephrostomy tube, injury to kidney, unforeseen and unpredictable complications in sequelae.? Patient voices understanding and acceptance of risks and wishes to proceed. IMPRESSION:? ? There is again seen right-sided hydroureter and hydronephrosis, which is mildly worse on the current study than on the 09/14/2022.? 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 ? Mildly enlarged retroperitoneal lymph nodes are again seen. ? ? Additional findings:? AICD Prosthetic aortic valve Splenomegaly Mild fat containing periumbilical hernia Diverticulosis, without active diverticulitis Levoconvex scoliotic curvature Are focal L5-S1 degenerative change Mild bilateral fat containing inguinal hernias Related Data Home Medications Medication Instructions Recorded Confirmed Mirapex 1 mg PO BEDTIME 09/29/20 10/22/22 Plavix 75 mg PO QAM 09/29/20 10/02/22 Zoloft 100 mg PO QAM 09/29/20 10/02/22 apixaban 5 mg PO BID 09/29/20 10/02/22 insulin lispro 100 unit/mL See Rx Instructions .Route .COMPLEX 09/29/20 10/02/22 subcutaneous pen metformin 500 mg PO BID 09/29/20 10/02/22 metoprolol succinate 12.5 mg PO QAM 09/29/20 10/22/22 ibuprofen 400 mg tablet 400 mg PO PRN PRN Pain, Mild 10/23/20 10/02/22 loperamide 2 mg tablet 2 mg PO Q6H PRN 04/22/21 10/22/22 nystatin-triamcinolone topical applic topical 04/22/21 10/02/22 cream acetaminophen 325 mg tablet 650 mg PO Q4H PRN pain 06/13/22 10/22/22 atorvastatin 40 mg tablet 40 mg PO BEDTIME 06/13/22 10/22/22 calcium carbonate 215 mg calcium 500 mg DAILY 06/13/22 10/22/22 (500 mg) chewable tablet (Antacid (calcium carbonate)) ferrous sulfate 325 mg (65 mg 325 mg DAILY 06/13/22 10/22/22 iron) tablet furosemide 40 mg tablet 40 mg PO DAILY 06/13/22 10/22/22 gabapentin 100 mg tablet 100 mg PO TID 06/13/22 10/02/22 gabapentin 300 mg tablet 600 mg PO TID 06/13/22 10/22/22 insulin glargine 100 unit/mL 55 unit SUBCUT QPM 06/13/22 10/22/22 subcutaneous cartridge insulin lispro 100 unit/mL 1 sliding scale dose SUBCUT 06/13/22 10/02/22 subcutaneous cartridge USEASDIRECTD lisinopril 2.5 mg tablet 2.5 mg PO DAILY 06/13/22 10/22/22 metoprolol succinate 25 mg 12.5 mg PO DAILY 06/13/22 10/22/22 tablet,extended release 24 hr nystatin 100,000 unit/gram topical 1 applic topical PRN PRN Rash 06/13/22 10/02/22 cream pantoprazole 40 mg tablet,delayed 40 mg PO DAILY 06/13/22 10/22/22 release pramipexole 0.5 mg tablet 0.5 mg PO BEDTIME 06/13/22 10/22/22 ropinirole 1 mg tablet 1.5 mg PO TID 06/13/22 10/02/22 sertraline 50 mg tablet 50 mg PO DAILY 06/13/22 10/22/22 spironolactone 25 mg tablet 25 mg PO BID 06/13/22 10/22/22 tolterodine 4 mg capsule,extended 4 mg PO DAILY 06/13/22 10/22/22 release 24 hr tramadol 100 mg tablet 100 mg PO Q6H PRN pain 06/13/22 10/02/22 trazodone 50 mg tablet 75 mg PO BEDTIME 06/13/22 10/22/22 warfarin 5 mg tablet See Rx Instructions .Route .COMPLEX 06/13/22 10/22/22 warfarin 5 mg tablet See Rx Instructions .Route .COMPLEX 06/13/22 10/22/22 hydroxyzine pamoate 25 mg capsule 25 mg PO BEDTIME 08/03/22 10/22/22 (Vistaril) Previous Rx's Medication Instructions Recorded hydrocodone 5 mg-acetaminophen 325 2 tab PO Q6H PRN pain #30 tabs 10/18/22 mg tablet Allergies Allergy/AdvReac Type Severity Reaction Status Date / Time crab Allergy Severe Deathly Verified 10/23/22 11:54 sick aspartame Allergy Unknown Verified 10/22/22 15:15 carbidopa Allergy Hallucinations, Verified 10/23/22 11:54 anxiety morphine AdvReac Nausea/vomi Verified 10/23/22 11:54 ting Review of Systems <Delvin Chavarria MD - Last Filed: 11/05/22 05:45> Review of Systems Narrative: GENERAL: negative positive chills, fatigue, malaise, negative fever, sweats. HEENT: negative sinus pain, ear pain, sore throat RESPIRATORY: negative dyspnea, cough CARDIOVASCULAR: negative chest pain, palpitations GASTROINTESTINAL: + nausea, negative vomiting, abdominal pain : negative dysuria, frequency, hematuria MUSCULOSKELETAL: Positive back pain/muscle or bony pain SKIN: negative rash, skin lesions NEUROLOGIC: negative weakness, numbness ROS Unobtainable: All systems reviewed & are unremarkable except as noted in HPI and below Patient History <Delvin Chavarria MD - Last Filed: 11/05/22 05:45> Medical History Androgen deprivation therapy Arthritis Atrial fibrillation CAD (coronary artery disease) Chronic anticoagulation Congestive heart failure Depression Diabetes DVT (deep venous thrombosis) Enlarged lymph node First degree AV block GERD (gastroesophageal reflux disease) Gout History of left heart catheterization (12/2019) History of prostate cancer History of radiation therapy History of transcatheter aortic valve replacement (TAVR) (08/01/18) Hydronephrosis, right Hypertension LAFB (left anterior fascicular block) Osteoarthritis Pacemaker Paroxysmal A-fib Prostate cancer RBBB Sleep apnea Stress incontinence Stress incontinence, male Surgical History AICD (automatic cardioverter/defibrillator) present (12/30/20) H/O aortic valve replacement History of back surgery Hx of heart artery stent Family History Mother Coronary artery disease involving bypass graft of transplanted heart Cancer Hypertension Social History marital status: number of children: 3 household members: none Previous occupational history: retired Smoking Status: Former smoker alcohol intake: current caffeine: Yes Smoking Status: Former smoker tobacco type: cigarettes alcohol intake frequency: 0-2 drinks per day Substance Use Type: does not use and former substance user Exam <Delvin Chavarria MD - Last Filed: 11/05/22 05:45> Narrative Exam Narrative: GENERAL: in no distress, not toxic not dyspneic HEAD: Normocephalic. EYES: Pupils equal round ENT: Mucous membranes moist. NECK: Trachea midline. CARDIOVASCULAR: Regular rate and rhythm without murmurs RESPIRATORY: Clear to auscultation. Breath sounds equal bilaterally. No wheezes, rales, or rhonchi. GASTROINTESTINAL: Abdomen soft, non-tender EXTREMITIES: No gross deformities. BACK: No flank tenderness. There is bilateral lower paralumbar muscle tenderness. No midline tenderness or step-off. NEURO: AOx4. SKIN: Warm and dry PSYCH: Not anxious, is cooperative Initial Vital Signs Initial Vital Signs: Vital Signs Temperature 98.5 F 10/29/22 08:14 Pulse Rate 64 10/29/22 08:14 Respiratory Rate 18 10/29/22 08:14 Blood Pressure 111/52 L 10/29/22 08:14 Pulse Oximetry 96 10/29/22 08:14 Oxygen Delivery Method Room Air 10/29/22 08:14 <Sepideh Gutiérrez DO - Last Filed: 10/31/22 03:53> Initial Vital Signs Initial Vital Signs: Vital Signs Temperature 98.5 F 10/29/22 08:14 Pulse Rate 64 10/29/22 08:14 Respiratory Rate 18 10/29/22 08:14 Blood Pressure 111/52 L 10/29/22 08:14 Pulse Oximetry 96 10/29/22 08:14 Oxygen Delivery Method Room Air 10/29/22 08:14 <Keshia Kate DO - Last Filed: 10/30/22 18:21> Initial Vital Signs Initial Vital Signs: Vital Signs Temperature 98.5 F 10/29/22 08:14 Pulse Rate 64 10/29/22 08:14 Respiratory Rate 18 10/29/22 08:14 Blood Pressure 111/52 L 10/29/22 08:14 Pulse Oximetry 96 10/29/22 08:14 Oxygen Delivery Method Room Air 10/29/22 08:14 Course <Delvin Chavarria MD - Last Filed: 11/05/22 05:45> Orders Ordered: Discontinued Medications Hydrocodone Bitart/Acetaminophen (Hydrocodone/Acet 5/325 Tablet) 2 tab PO Q4HR PRN PRN Reason: Pain, Severe (7-10) Last Admin: 10/30/22 11:52 Dose: 2 tab Documented By: Admin: 10/30/22 04:07 Dose: 2 tab Documented By: Admin: 10/30/22 00:57 Dose: 2 tab Documented By: NBA Atorvastatin Calcium (Atorvastatin 20 Mg Tablet) 40 mg PO DAILY [facility] Atorvastatin Calcium (Atorvastatin 20 Mg Tablet) 40 mg PO DAILY [facility] Gabapentin (Gabapentin 600 Mg Tablet) 600 mg PO TID [facility] Last Admin: 10/30/22 14:07 Dose: Not Given Documented By: Admin: 10/30/22 12:00 Dose: 600 mg Documented By: AMKb Gabapentin (Gabapentin 100 Mg Capsule) 100 mg PO TID [facility] Last Admin: 10/30/22 14:07 Dose: Not Given Documented By: Admin: 10/30/22 12:01 Dose: 100 mg Documented By: AMU Hydromorphone HCl (Hydromorphone 1 Mg Inj) 1 mg IV NOW ONE Stop: 10/29/22 09:38 Last Admin: 10/29/22 09:49 Dose: 1 mg Documented By: JIMENEZ Hydromorphone HCl (Hydromorphone 1 Mg Inj) 1 mg IV NOW ONE Stop: 10/29/22 13:09 Last Admin: 10/29/22 13:12 Dose: 1 mg Documented By: NBA Hydromorphone HCl (Hydromorphone 1 Mg Inj) 1 mg IV Q4HR PRN PRN Reason: Pain, Moderate (4-6) Last Admin: 10/30/22 07:42 Dose: 1 mg Documented By: Admin: 10/29/22 21:12 Dose: 1 mg Documented By: Admin: 10/29/22 16:44 Dose: 1 mg Documented By: NBA Hydromorphone HCl (Hydromorphone 2 Mg Inj) 2 mg IV Q3H PRN PRN Reason: Pain, Severe (7-10) Ceftriaxone Sodium 2,000 mg/ (Sodium Chloride) 100 mls @ 200 mls/hr IV NOW ONE Stop: 10/29/22 11:43 Last Infusion: 10/29/22 12:54 Dose: 0 mls/hr Documented By: Admin: 10/29/22 12:22 Dose: 200 mls/hr Documented By: JIMENEZ Ceftriaxone Sodium 2,000 mg/ (Sodium Chloride) 100 mls @ 200 mls/hr IV DAILY AN[facility] Last Infusion: 10/30/22 09:12 Dose: 0 mls/hr Documented By: AMKb Admin: 10/30/22 08:42 Dose: 200 mls/hr Documented By: LOKI Sodium Chloride (Normal Saline 0.9%) 1,000 mls @ 100 mls/hr IV CONT ANNAMARIE Last Admin: 10/30/22 11:46 Dose: 100 mls/hr Documented By: Infusion: 10/30/22 11:15 Dose: 0 mls/hr Documented By: Admin: 10/30/22 00:57 Dose: 100 mls/hr Documented By: NBA Sodium Chloride (Normal Saline 0.9%) 1,000 mls @ 100 mls/hr IV CONT ANNAMARIE Last Admin: 10/30/22 11:46 Dose: 100 mls/hr Documented By: LOKI Lorazepam (Lorazepam 2 Mg/Ml Inj) 0.5 mg IV NOW ONE Stop: 10/30/22 11:04 Last Admin: 10/30/22 11:10 Dose: 0.5 mg Documented By: LOKI Lorazepam (Lorazepam 2 Mg/Ml Inj) 0.5 mg IV Q6HR PRN PRN Reason: Anxiety Last Admin: 10/30/22 11:47 Dose: 0.5 mg Documented By: LOKI Metoprolol Succinate (Metoprolol Er 25 Mg Tablet) 12.5 mg PO DAILY [facility] Last Admin: 10/30/22 08:17 Dose: 12.5 mg Documented By: LOKI Ondansetron HCl (Ondansetron 4 Mg/2 Ml Inj) 4 mg IV NOW ONE Stop: 10/29/22 09:38 Last Admin: 10/29/22 09:49 Dose: 4 mg Documented By: JIMENEZ Ondansetron HCl (Ondansetron 4 Mg/2 Ml Inj) 4 mg IV NOW ONE Stop: 10/30/22 00:02 Last Admin: 10/30/22 00:05 Dose: 4 mg Documented By: NBA Ondansetron HCl (Ondansetron 4 Mg/2 Ml Inj) 4 mg IV NOW ONE Stop: 10/30/22 08:06 Last Admin: 10/30/22 08:09 Dose: 4 mg Documented By: LOKI Pantoprazole Sodium (Pantoprazole Dr 20 Mg Tablet) 40 mg PO DAILY [facility] Last Admin: 10/30/22 08:17 Dose: 40 mg Documented By: LOKI Ropinirole HCl (Ropinirole 1 Mg Tablet) 1.5 mg PO TID [facility] Last Admin: 10/30/22 14:29 Dose: 1.5 mg Documented By: Admin: 10/30/22 08:16 Dose: 1.5 mg Documented By: Admin: 10/29/22 21:21 Dose: 1.5 mg Documented By: NBA Sertraline HCl (Sertraline 50 Mg Tablet) 50 mg PO BEDTIME [facility] Last Admin: 10/29/22 21:20 Dose: 50 mg Documented By: NBA Trazodone HCl (Trazodone 50 Mg Tablet) 75 mg PO BEDTIME [facility] Last Admin: 10/29/22 21:20 Dose: 75 mg Documented By: NBA Vital Signs Vital signs: Vital Signs - 8 hr 10/30/22 10:30 10/30/22 11:00 10/30/22 11:00 Pulse Rate 60 72 Respiratory Rate 18 Blood Pressure 137/92 H Pulse Oximetry 96 96 Oxygen Delivery Method Room Air 10/30/22 11:30 10/30/22 12:00 10/30/22 12:30 Pulse Rate 68 62 60 Respiratory Rate 20 17 Blood Pressure Pulse Oximetry Oxygen Delivery Method 10/30/22 13:00 10/30/22 13:30 10/30/22 14:02 Pulse Rate 60 79 63 Respiratory Rate 15 16 Blood Pressure Pulse Oximetry 98 Oxygen Delivery Method 10/30/22 14:03 10/30/22 14:03 10/30/22 14:30 Pulse Rate 60 60 Respiratory Rate 22 24 Blood Pressure 176/70 H Pulse Oximetry 98 97 Oxygen Delivery Method 10/30/22 15:00 10/30/22 15:30 10/30/22 16:00 Pulse Rate 62 60 60 Respiratory Rate 15 17 Blood Pressure Pulse Oximetry 98 96 97 Oxygen Delivery Method 10/30/22 16:30 10/30/22 16:53 10/30/22 16:53 Pulse Rate 60 63 Respiratory Rate 17 Blood Pressure 165/70 H Pulse Oximetry 97 98 Oxygen Delivery Method 10/30/22 17:00 10/30/22 17:00 10/30/22 17:30 Pulse Rate 60 60 Respiratory Rate 17 Blood Pressure 156/70 H Pulse Oximetry 98 96 Oxygen Delivery Method Room Air <Sepideh Gutiérrez, - Last Filed: 10/31/22 03:53> Orders Ordered: Discontinued Medications Hydrocodone Bitart/Acetaminophen (Hydrocodone/Acet 5/325 Tablet) 2 tab PO Q4HR PRN PRN Reason: Pain, Severe (7-10) Last Admin: 10/30/22 11:52 Dose: 2 tab Documented By: Admin: 10/30/22 04:07 Dose: 2 tab Documented By: Admin: 10/30/22 00:57 Dose: 2 tab Documented By: NBA Atorvastatin Calcium (Atorvastatin 20 Mg Tablet) 40 mg PO DAILY [facility] Atorvastatin Calcium (Atorvastatin 20 Mg Tablet) 40 mg PO DAILY [facility] Gabapentin (Gabapentin 600 Mg Tablet) 600 mg PO TID ANNAM[facility]IE Last Admin: 10/30/22 14:07 Dose: Not Given Documented By: Admin: 10/30/22 12:00 Dose: 600 mg Documented By: AMU Gabapentin (Gabapentin 100 Mg Capsule) 100 mg PO TID [facility] Last Admin: 10/30/22 14:07 Dose: Not Given Documented By: Admin: 10/30/22 12:01 Dose: 100 mg Documented By: LOKI Hydromorphone HCl (Hydromorphone 1 Mg Inj) 1 mg IV NOW ONE Stop: 10/29/22 09:38 Last Admin: 10/29/22 09:49 Dose: 1 mg Documented By: JIMENEZ Hydromorphone HCl (Hydromorphone 1 Mg Inj) 1 mg IV NOW ONE Stop: 10/29/22 13:09 Last Admin: 10/29/22 13:12 Dose: 1 mg Documented By: NBA Hydromorphone HCl (Hydromorphone 1 Mg Inj) 1 mg IV Q4HR PRN PRN Reason: Pain, Moderate (4-6) Last Admin: 10/30/22 07:42 Dose: 1 mg Documented By: Admin: 10/29/22 21:12 Dose: 1 mg Documented By: Admin: 10/29/22 16:44 Dose: 1 mg Documented By: NBA Hydromorphone HCl (Hydromorphone 2 Mg Inj) 2 mg IV Q3H PRN PRN Reason: Pain, Severe (7-10) Ceftriaxone Sodium 2,000 mg/ (Sodium Chloride) 100 mls @ 200 mls/hr IV NOW ONE Stop: 10/29/22 11:43 Last Infusion: 10/29/22 12:54 Dose: 0 mls/hr Documented By: Admin: 10/29/22 12:22 Dose: 200 mls/hr Documented By: JIMENEZ Ceftriaxone Sodium 2,000 mg/ (Sodium Chloride) 100 mls @ 200 mls/hr IV DAILY ANNAM[facility]IE Last Infusion: 10/30/22 09:12 Dose: 0 mls/hr Documented By: Admin: 10/30/22 08:42 Dose: 200 mls/hr Documented By: LOKI Sodium Chloride (Normal Saline 0.9%) 1,000 mls @ 100 mls/hr IV CONT ANNAMARIE Last Admin: 10/30/22 11:46 Dose: 100 mls/hr Documented By: Infusion: 10/30/22 11:15 Dose: 0 mls/hr Documented By: Admin: 10/30/22 00:57 Dose: 100 mls/hr Documented By: NBA Sodium Chloride (Normal Saline 0.9%) 1,000 mls @ 100 mls/hr IV CONT [facility] Last Admin: 10/30/22 11:46 Dose: 100 mls/hr Documented By: LOKI Lorazepam (Lorazepam 2 Mg/Ml Inj) 0.5 mg IV NOW ONE Stop: 10/30/22 11:04 Last Admin: 10/30/22 11:10 Dose: 0.5 mg Documented By: LOKI Lorazepam (Lorazepam 2 Mg/Ml Inj) 0.5 mg IV Q6HR PRN PRN Reason: Anxiety Last Admin: 10/30/22 11:47 Dose: 0.5 mg Documented By: LOKI Metoprolol Succinate (Metoprolol Er 25 Mg Tablet) 12.5 mg PO DAILY [facility] Last Admin: 10/30/22 08:17 Dose: 12.5 mg Documented By: LOKI Ondansetron HCl (Ondansetron 4 Mg/2 Ml Inj) 4 mg IV NOW ONE Stop: 10/29/22 09:38 Last Admin: 10/29/22 09:49 Dose: 4 mg Documented By: JIMENEZ Ondansetron HCl (Ondansetron 4 Mg/2 Ml Inj) 4 mg IV NOW ONE Stop: 10/30/22 00:02 Last Admin: 10/30/22 00:05 Dose: 4 mg Documented By: NBA Ondansetron HCl (Ondansetron 4 Mg/2 Ml Inj) 4 mg IV NOW ONE Stop: 10/30/22 08:06 Last Admin: 10/30/22 08:09 Dose: 4 mg Documented By: LOKI Pantoprazole Sodium (Pantoprazole Dr 20 Mg Tablet) 40 mg PO DAILY [facility] Last Admin: 10/30/22 08:17 Dose: 40 mg Documented By: LOKI Ropinirole HCl (Ropinirole 1 Mg Tablet) 1.5 mg PO TID [facility] Last Admin: 10/30/22 14:29 Dose: 1.5 mg Documented By: Admin: 10/30/22 08:16 Dose: 1.5 mg Documented By: Admin: 10/29/22 21:21 Dose: 1.5 mg Documented By: NBA Sertraline HCl (Sertraline 50 Mg Tablet) 50 mg PO BEDTIME [facility] Last Admin: 10/29/22 21:20 Dose: 50 mg Documented By: NBA Trazodone HCl (Trazodone 50 Mg Tablet) 75 mg PO BEDTIME [facility] Last Admin: 10/29/22 21:20 Dose: 75 mg Documented By: NBA Vital Signs Vital signs: Vital Signs - 8 hr 10/30/22 10:30 10/30/22 11:00 10/30/22 11:00 Pulse Rate 60 72 Respiratory Rate 18 Blood Pressure 137/92 H Pulse Oximetry 96 96 Oxygen Delivery Method Room Air 10/30/22 11:30 10/30/22 12:00 10/30/22 12:30 Pulse Rate 68 62 60 Respiratory Rate 20 17 Blood Pressure Pulse Oximetry Oxygen Delivery Method 10/30/22 13:00 10/30/22 13:30 10/30/22 14:02 Pulse Rate 60 79 63 Respiratory Rate 15 16 Blood Pressure Pulse Oximetry 98 Oxygen Delivery Method 10/30/22 14:03 10/30/22 14:03 10/30/22 14:30 Pulse Rate 60 60 Respiratory Rate 22 24 Blood Pressure 176/70 H Pulse Oximetry 98 97 Oxygen Delivery Method 10/30/22 15:00 10/30/22 15:30 10/30/22 16:00 Pulse Rate 62 60 60 Respiratory Rate 15 17 Blood Pressure Pulse Oximetry 98 96 97 Oxygen Delivery Method 10/30/22 16:30 10/30/22 16:53 10/30/22 16:53 Pulse Rate 60 63 Respiratory Rate 17 Blood Pressure 165/70 H Pulse Oximetry 97 98 Oxygen Delivery Method 10/30/22 17:00 10/30/22 17:00 10/30/22 17:30 Pulse Rate 60 60 Respiratory Rate 17 Blood Pressure 156/70 H Pulse Oximetry 98 96 Oxygen Delivery Method Room Air <Keshia Kate DO - Last Filed: 10/30/22 18:21> Orders Ordered: Discontinued Medications Hydrocodone Bitart/Acetaminophen (Hydrocodone/Acet 5/325 Tablet) 2 tab PO Q4HR PRN PRN Reason: Pain, Severe (7-10) Last Admin: 10/30/22 11:52 Dose: 2 tab Documented By: Admin: 10/30/22 04:07 Dose: 2 tab Documented By: Admin: 10/30/22 00:57 Dose: 2 tab Documented By: NBA Atorvastatin Calcium (Atorvastatin 20 Mg Tablet) 40 mg PO DAILY [facility] Atorvastatin Calcium (Atorvastatin 20 Mg Tablet) 40 mg PO DAILY [facility] Gabapentin (Gabapentin 600 Mg Tablet) 600 mg PO TID [facility] Last Admin: 10/30/22 14:07 Dose: Not Given Documented By: Admin: 10/30/22 12:00 Dose: 600 mg Documented By: LOKI Gabapentin (Gabapentin 100 Mg Capsule) 100 mg PO TID [facility] Last Admin: 10/30/22 14:07 Dose: Not Given Documented By: Admin: 10/30/22 12:01 Dose: 100 mg Documented By: LOKI Hydromorphone HCl (Hydromorphone 1 Mg Inj) 1 mg IV NOW ONE Stop: 10/29/22 09:38 Last Admin: 10/29/22 09:49 Dose: 1 mg Documented By: JIMENEZ Hydromorphone HCl (Hydromorphone 1 Mg Inj) 1 mg IV NOW ONE Stop: 10/29/22 13:09 Last Admin: 10/29/22 13:12 Dose: 1 mg Documented By: NBA Hydromorphone HCl (Hydromorphone 1 Mg Inj) 1 mg IV Q4HR PRN PRN Reason: Pain, Moderate (4-6) Last Admin: 10/30/22 07:42 Dose: 1 mg Documented By: Admin: 10/29/22 21:12 Dose: 1 mg Documented By: Admin: 10/29/22 16:44 Dose: 1 mg Documented By: NBA Hydromorphone HCl (Hydromorphone 2 Mg Inj) 2 mg IV Q3H PRN PRN Reason: Pain, Severe (7-10) Ceftriaxone Sodium 2,000 mg/ (Sodium Chloride) 100 mls @ 200 mls/hr IV NOW ONE Stop: 10/29/22 11:43 Last Infusion: 10/29/22 12:54 Dose: 0 mls/hr Documented By: Admin: 10/29/22 12:22 Dose: 200 mls/hr Documented By: JIMENEZ Ceftriaxone Sodium 2,000 mg/ (Sodium Chloride) 100 mls @ 200 mls/hr IV DAILY [facility] Last Infusion: 10/30/22 09:12 Dose: 0 mls/hr Documented By: Admin: 10/30/22 08:42 Dose: 200 mls/hr Documented By: LOKI Sodium Chloride (Normal Saline 0.9%) 1,000 mls @ 100 mls/hr IV CONT [facility] Last Admin: 10/30/22 11:46 Dose: 100 mls/hr Documented By: Infusion: 10/30/22 11:15 Dose: 0 mls/hr Documented By: Admin: 10/30/22 00:57 Dose: 100 mls/hr Documented By: NBA Sodium Chloride (Normal Saline 0.9%) 1,000 mls @ 100 mls/hr IV CONT [facility] Last Admin: 10/30/22 11:46 Dose: 100 mls/hr Documented By: LOKI Lorazepam (Lorazepam 2 Mg/Ml Inj) 0.5 mg IV NOW ONE Stop: 10/30/22 11:04 Last Admin: 10/30/22 11:10 Dose: 0.5 mg Documented By: LOKI Lorazepam (Lorazepam 2 Mg/Ml Inj) 0.5 mg IV Q6HR PRN PRN Reason: Anxiety Last Admin: 10/30/22 11:47 Dose: 0.5 mg Documented By: LOKI Metoprolol Succinate (Metoprolol Er 25 Mg Tablet) 12.5 mg PO DAILY [facility] Last Admin: 10/30/22 08:17 Dose: 12.5 mg Documented By: LOKI Ondansetron HCl (Ondansetron 4 Mg/2 Ml Inj) 4 mg IV NOW ONE Stop: 10/29/22 09:38 Last Admin: 10/29/22 09:49 Dose: 4 mg Documented By: JIMENEZ Ondansetron HCl (Ondansetron 4 Mg/2 Ml Inj) 4 mg IV NOW ONE Stop: 10/30/22 00:02 Last Admin: 10/30/22 00:05 Dose: 4 mg Documented By: NBA Ondansetron HCl (Ondansetron 4 Mg/2 Ml Inj) 4 mg IV NOW ONE Stop: 10/30/22 08:06 Last Admin: 10/30/22 08:09 Dose: 4 mg Documented By: LOKI Pantoprazole Sodium (Pantoprazole Dr 20 Mg Tablet) 40 mg PO DAILY [facility] Last Admin: 10/30/22 08:17 Dose: 40 mg Documented By: LOKI Ropinirole HCl (Ropinirole 1 Mg Tablet) 1.5 mg PO TID [facility] Last Admin: 10/30/22 14:29 Dose: 1.5 mg Documented By: Admin: 10/30/22 08:16 Dose: 1.5 mg Documented By: Admin: 10/29/22 21:21 Dose: 1.5 mg Documented By: NBA Sertraline HCl (Sertraline 50 Mg Tablet) 50 mg PO BEDTIME [facility] Last Admin: 10/29/22 21:20 Dose: 50 mg Documented By: NBA Trazodone HCl (Trazodone 50 Mg Tablet) 75 mg PO BEDTIME [facility] Last Admin: 10/29/22 21:20 Dose: 75 mg Documented By: NBA Vital Signs Vital signs: Vital Signs - 8 hr 10/30/22 10:30 10/30/22 11:00 10/30/22 11:00 Pulse Rate 60 72 Respiratory Rate 18 Blood Pressure 137/92 H Pulse Oximetry 96 96 Oxygen Delivery Method Room Air 10/30/22 11:30 10/30/22 12:00 10/30/22 12:30 Pulse Rate 68 62 60 Respiratory Rate 20 17 Blood Pressure Pulse Oximetry Oxygen Delivery Method 10/30/22 13:00 10/30/22 13:30 10/30/22 14:02 Pulse Rate 60 79 63 Respiratory Rate 15 16 Blood Pressure Pulse Oximetry 98 Oxygen Delivery Method 10/30/22 14:03 10/30/22 14:03 10/30/22 14:30 Pulse Rate 60 60 Respiratory Rate 22 24 Blood Pressure 176/70 H Pulse Oximetry 98 97 Oxygen Delivery Method 10/30/22 15:00 10/30/22 15:30 10/30/22 16:00 Pulse Rate 62 60 60 Respiratory Rate 15 17 Blood Pressure Pulse Oximetry 98 96 97 Oxygen Delivery Method 10/30/22 16:30 10/30/22 16:53 10/30/22 16:53 Pulse Rate 60 63 Respiratory Rate 17 Blood Pressure 165/70 H Pulse Oximetry 97 98 Oxygen Delivery Method 10/30/22 17:00 10/30/22 17:00 10/30/22 17:30 Pulse Rate 60 60 Respiratory Rate 17 Blood Pressure 156/70 H Pulse Oximetry 98 96 Oxygen Delivery Method Room Air MDM - Back Pain/Injury <Delvin Chavarria MD - Last Filed: 11/05/22 05:45> Lab Data 10/30/22 03:59 10/30/22 12:10 Labs: Lab Results 10/29/22 10/29/22 10/29/22 Range/Units 09:40 09:40 09:40 WBC 10.7 (4.5-11.0) X10^3/uL RBC 3.67 L (4.5-5.9) X10^6/uL Hgb 10.5 L (13.5-17.5) g/dL Hct 30.8 L (41-53) % MCV 84.0 (80-100) fL MCH 28.7 (26-34) PG MCHC 34.1 (30-36) % RDW 16.0 H (11.6-14.8) % Plt Count 184 (150-400) X10^3/uL Neut % (Auto) 82.6 H (50-75) % Lymph % (Auto) 8.0 L (25-40) % Bennett % (Auto) 6.2 (3-14) % Eos % (Auto) 2.6 (2-4) % Baso % (Auto) 0.6 (0-2) % Neut # (Auto) 8800 H (8452-5738) /uL Lymph # (Auto) 900 L (6109-9283) /uL Bennett # (Auto) 700 (0-900) /uL Eos # (Auto) 300 (0-450) /uL Baso # (Auto) 100 (0-100) /uL PT (10.1-12.7) SECONDS INR (0.9-1.3) APTT (26-36) SECONDS Sodium 138 (137-145) mmol/L Potassium 4.6 (3.4-5.1) mmol/L Chloride 106 (98-107) mmol/L Carbon Dioxide 22 (22-32) mmol/L BUN 36 H (9-20) mg/dL Creatinine 2.76 H (0.66-1.25) mg/dL Estimated GFR 23 L (>60) mL/min BUN/Creatinine Ratio 13.0 (6-22) Glucose 135 H (80-110) mg/dL Lactate 1.0 (0.7-2.1) mmol/L Calcium 8.6 (8.4-10.2) mg/dL Total Bilirubin 0.4 (0.2-1.3) mg/dL AST 20 (17-59) IU/L ALT 22 (<50) IU/L Alkaline Phosphatase 115 (38-126) U/L Total Protein 6.9 (6.3-8.2) g/dL Albumin 4.0 (3.5-5.0) g/dL Globulin 2.9 (1.7-4.1) g/dL Albumin/Globulin Ratio 1.4 (1.0-2.8) Urine Color Urine Appearance Urine pH (4.5-8.0) Ur Specific [place] (1.000-1.035) Urine Protein (Negative) Urine Glucose (UA) (Negative) g/dL Urine Ketones (NEGATIVE) Urine Occult Blood (Negative) Urine Nitrate (Negative) Urine Bilirubin (NEGATIVE) Urine Urobilinogen (0.2) E.U./dL Ur Leukocyte Esterase (NEGATIVE) Urine RBC (0-5/HPF) Urine WBC (0-5/HPF) Ur Squamous Epith Cells (0-5/HPF) Urine Bacteria (None) Ur Culture Indicated? SARS-CoV-2 (PCR) (Negative) 10/29/22 10/29/22 10/30/22 Range/Units 17:55 18:25 03:59 WBC 10.3 (4.5-11.0) X10^3/uL RBC 3.65 L (4.5-5.9) X10^6/uL Hgb 10.5 L (13.5-17.5) g/dL Hct 30.6 L (41-53) % MCV 83.8 (80-100) fL MCH 28.7 (26-34) PG MCHC 34.2 (30-36) % RDW 15.9 H (11.6-14.8) % Plt Count 177 (150-400) X10^3/uL Neut % (Auto) 80.9 H (50-75) % Lymph % (Auto) 10.8 L (25-40) % Bennett % (Auto) 5.4 (3-14) % Eos % (Auto) 2.0 (2-4) % Baso % (Auto) 0.9 (0-2) % Neut # (Auto) 8400 H (8715-1234) /uL Lymph # (Auto) 1100 (4440-7922) /uL Bennett # (Auto) 600 (0-900) /uL Eos # (Auto) 200 (0-450) /uL Baso # (Auto) 100 (0-100) /uL PT 17.9 H (10.1-12.7) SECONDS INR 1.6 H (0.9-1.3) APTT 38 H (26-36) SECONDS Sodium (137-145) mmol/L Potassium (3.4-5.1) mmol/L Chloride (98-107) mmol/L Carbon Dioxide (22-32) mmol/L BUN (9-20) mg/dL Creatinine (0.66-1.25) mg/dL Estimated GFR (>60) mL/min BUN/Creatinine Ratio (6-22) Glucose (80-110) mg/dL Lactate (0.7-2.1) mmol/L Calcium (8.4-10.2) mg/dL Total Bilirubin (0.2-1.3) mg/dL AST (17-59) IU/L ALT (<50) IU/L Alkaline Phosphatase (38-126) U/L Total Protein (6.3-8.2) g/dL Albumin (3.5-5.0) g/dL Globulin (1.7-4.1) g/dL Albumin/Globulin Ratio (1.0-2.8) Urine Color Yellow Urine Appearance Clear Urine pH 6.5 (4.5-8.0) Ur Specific [place] 1.010 (1.000-1.035) Urine Protein Negative (Negative) Urine Glucose (UA) Negative (Negative) g/dL Urine Ketones Negative (NEGATIVE) Urine Occult Blood Negative (Negative) Urine Nitrate Negative (Negative) Urine Bilirubin Negative (NEGATIVE) Urine Urobilinogen 0.2 (0.2) E.U./dL Ur Leukocyte Esterase Negative (NEGATIVE) Urine RBC None seen (0-5/HPF) Urine WBC None seen (0-5/HPF) Ur Squamous Epith Cells None seen (0-5/HPF) Urine Bacteria None seen (None) Ur Culture Indicated? Cult not indicated SARS-CoV-2 (PCR) (Negative) 10/30/22 10/30/22 10/30/22 Range/Units 03:59 07:30 12:10 WBC (4.5-11.0) X10^3/uL RBC (4.5-5.9) X10^6/uL Hgb (13.5-17.5) g/dL Hct (41-53) % MCV (80-100) fL MCH (26-34) PG MCHC (30-36) % RDW (11.6-14.8) % Plt Count (150-400) X10^3/uL Neut % (Auto) (50-75) % Lymph % (Auto) (25-40) % Bennett % (Auto) (3-14) % Eos % (Auto) (2-4) % Baso % (Auto) (0-2) % Neut # (Auto) (3386-9066) /uL Lymph # (Auto) (9463-6085) /uL Bennett # (Auto) (0-900) /uL Eos # (Auto) (0-450) /uL Baso # (Auto) (0-100) /uL PT (10.1-12.7) SECONDS INR (0.9-1.3) APTT (26-36) SECONDS Sodium 138 137 (137-145) mmol/L Potassium 5.4 H 5.1 (3.4-5.1) mmol/L Chloride 106 105 (98-107) mmol/L Carbon Dioxide 23 23 (22-32) mmol/L BUN 33 H 31 H (9-20) mg/dL Creatinine 2.20 H 2.14 H (0.66-1.25) mg/dL Estimated GFR 31 L 32 L (>60) mL/min BUN/Creatinine Ratio 15.0 14.5 (6-22) Glucose 128 H 171 H (80-110) mg/dL Lactate (0.7-2.1) mmol/L Calcium 8.5 8.6 (8.4-10.2) mg/dL Total Bilirubin 0.3 (0.2-1.3) mg/dL AST 20 (17-59) IU/L ALT 21 (<50) IU/L Alkaline Phosphatase 112 (38-126) U/L Total Protein 6.7 (6.3-8.2) g/dL Albumin 3.7 (3.5-5.0) g/dL Globulin 3.0 (1.7-4.1) g/dL Albumin/Globulin Ratio 1.2 (1.0-2.8) Urine Color Urine Appearance Urine pH (4.5-8.0) Ur Specific [place] (1.000-1.035) Urine Protein (Negative) Urine Glucose (UA) (Negative) g/dL Urine Ketones (NEGATIVE) Urine Occult Blood (Negative) Urine Nitrate (Negative) Urine Bilirubin (NEGATIVE) Urine Urobilinogen (0.2) E.U./dL Ur Leukocyte Esterase (NEGATIVE) Urine RBC (0-5/HPF) Urine WBC (0-5/HPF) Ur Squamous Epith Cells (0-5/HPF) Urine Bacteria (None) Ur Culture Indicated? SARS-CoV-2 (PCR) Negative (Negative) Point of Care Testing Glucose POC [address] scan - abdomen/pelvis: Radiologist's Impression: Lung bases:? Unremarkable.? ? Heart:? Cardiomegaly ? URINARY: Right Kidney:? Moderate right-sided hydronephrosis, similar to prior.? No obstructing stone. Right Ureter:? Moderate right-sided hydroureter.? There is a transition point as the ureter passes through the right pelvic mass (see below under pelvic lymph nodes). ? Left Kidney: ? No stones or hydronephrosis. Left Ureter:? No hydroureter.? ? Bladder:? Normal wall thickness. No stones. ? ? ? ABDOMEN: Liver:? Unremarkable.? ? Gallbladder:? Unremarkable.? ? Biliary ducts:? Unremarkable.? ? Pancreas:? Unremarkable.? ? Spleen:? Splenomegaly. Adrenal Glands:? Unremarkable.? ? ? Stomach and Bowel:? Stomach, small bowel loops, and colon are unremarkable.? Colonic diverticulosis without evidence of diverticulitis. Peritoneum:? No abnormal intraperitoneal fluid.? No free air.? ? Ventral Wall: ? No hernia.? Abdominal Nodes:? Growing retroperitoneal lymph nodes.? Examples include: -1.7 centimeter aortocaval node, previously 0.7 centimeters (). -1.4 centimeter aortocaval node, previously 0.7 centimeters (series 2, image 47). Vessels:? Aorta and inferior vena cava are normal in size.? ? PELVIS: Pelvic Organs:? Mildly atrophic prostate, with fiducial markers. Pelvic Nodes:? Growing right common iliac chain node measuring 4.4 x 5.5 centimeters, previously 3.4 x 4.4 centimeters (series 2, image 70 1). Miscellaneous: No inguinal hernias are seen. ? ? ? Bones:? Unremarkable. ? IMPRESSION:? ? Obstruction of the mid right ureter caused by a right common iliac chain mass, presumably an abnormal lymph node.? Additionally, there are growing retroperitoneal lymph nodes.? Findings are likely related to prostate cancer. MDM Narrative Medical decision making narrative: Patient brought in by ambulance from half-way for complains of back pain and chills. Patient seen here 11 days ago for UTI, CT scan imaging, patient did see urologist October 22 and scheduled for ureteral stent. Patient has been prescribed pain medication and nausea medication without any relief. Patient has history of prostate cancer. Please see CT report and urology office report below. Urine culture positive Proteus mirabilis. Sensitive to cephalexin, patient sent home on cephalexin. After history and exam CBC CMP blood culture CT KUB lactic acid procalcitonin o rdered MDM CC: Back pain and chills Complicating co-morbidities: History of prostate cancer Data collected from: Patient Medical records reviewed: ER visit October 18, 2022, urology office visit October 22, 2022 CT results from October 18, 2022 Differential considered: Includes but not limited to sepsis pyelonephritis metastatic cancer Exam documented above, pertinent findings include: Tender lower back Lab Test results independently reviewed as above. 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 Previously 3.4 x 4.4. 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 Consultations: 5:51 p.m.. I spoke with Jeanine, apartment house manager swing manager at [facility]. They still have no beds. However I was able to contact Dr. Hammond, urologist at [facility]. At [facility] there is very little to be done other than waiting for a bed for transfer. However it is possible if we have Interventional Radiology to do percutaneous drainage as a temporary measurement. Treatments: Lucille Martinez Re-evaluations: 11:40 a.m.. Updated patient results and need to transfer. He is aware that he needs to go to [facility] for his providers have been working to get him to [facility] because his insurance will only cover at [facility]. Pain is controlled at this time. Discussion: 6:00 p.m.. Deon: Sign out Dr Gutiérrez, tomorrow if possible radiology services, may need percutaneous drainage. However awaiting at this time for [facility] Diagnosis: <Sepideh Gutiérrez, DO - Last Filed: 10/31/22 03:53> Lab Data Labs: Lab Results 10/29/22 10/29/22 10/29/22 Range/Units 09:40 09:40 09:40 WBC 10.7 (4.5-11.0) X10^3/uL RBC 3.67 L (4.5-5.9) X10^6/uL Hgb 10.5 L (13.5-17.5) g/dL Hct 30.8 L (41-53) % MCV 84.0 (80-100) fL MCH 28.7 (26-34) PG MCHC 34.1 (30-36) % RDW 16.0 H (11.6-14.8) % Plt Count 184 (150-400) X10^3/uL Neut % (Auto) 82.6 H (50-75) % Lymph % (Auto) 8.0 L (25-40) % Bennett % (Auto) 6.2 (3-14) % Eos % (Auto) 2.6 (2-4) % Baso % (Auto) 0.6 (0-2) % Neut # (Auto) 8800 H (7497-1502) /uL Lymph # (Auto) 900 L (5259-8533) /uL Bennett # (Auto) 700 (0-900) /uL Eos # (Auto) 300 (0-450) /uL Baso # (Auto) 100 (0-100) /uL PT (10.1-12.7) SECONDS INR (0.9-1.3) APTT (26-36) SECONDS Sodium 138 (137-145) mmol/L Potassium 4.6 (3.4-5.1) mmol/L Chloride 106 (98-107) mmol/L Carbon Dioxide 22 (22-32) mmol/L BUN 36 H (9-20) mg/dL Creatinine 2.76 H (0.66-1.25) mg/dL Estimated GFR 23 L (>60) mL/min BUN/Creatinine Ratio 13.0 (6-22) Glucose 135 H (80-110) mg/dL Lactate 1.0 (0.7-2.1) mmol/L Calcium 8.6 (8.4-10.2) mg/dL Total Bilirubin 0.4 (0.2-1.3) mg/dL AST 20 (17-59) IU/L ALT 22 (<50) IU/L Alkaline Phosphatase 115 (38-126) U/L Total Protein 6.9 (6.3-8.2) g/dL Albumin 4.0 (3.5-5.0) g/dL Globulin 2.9 (1.7-4.1) g/dL Albumin/Globulin Ratio 1.4 (1.0-2.8) Urine Color Urine Appearance Urine pH (4.5-8.0) Ur Specific [place] (1.000-1.035) Urine Protein (Negative) Urine Glucose (UA) (Negative) g/dL Urine Ketones (NEGATIVE) Urine Occult Blood (Negative) Urine Nitrate (Negative) Urine Bilirubin (NEGATIVE) Urine Urobilinogen (0.2) E.U./dL Ur Leukocyte Esterase (NEGATIVE) Urine RBC (0-5/HPF) Urine WBC (0-5/HPF) Ur Squamous Epith Cells (0-5/HPF) Urine Bacteria (None) Ur Culture Indicated? SARS-CoV-2 (PCR) (Negative) 10/29/22 10/29/22 10/30/22 Range/Units 17:55 18:25 03:59 WBC 10.3 (4.5-11.0) X10^3/uL RBC 3.65 L (4.5-5.9) X10^6/uL Hgb 10.5 L (13.5-17.5) g/dL Hct 30.6 L (41-53) % MCV 83.8 (80-100) fL MCH 28.7 (26-34) PG MCHC 34.2 (30-36) % RDW 15.9 H (11.6-14.8) % Plt Count 177 (150-400) X10^3/uL Neut % (Auto) 80.9 H (50-75) % Lymph % (Auto) 10.8 L (25-40) % Bennett % (Auto) 5.4 (3-14) % Eos % (Auto) 2.0 (2-4) % Baso % (Auto) 0.9 (0-2) % Neut # (Auto) 8400 H (9920-5456) /uL Lymph # (Auto) 1100 (8466-3843) /uL Bennett # (Auto) 600 (0-900) /uL Eos # (Auto) 200 (0-450) /uL Baso # (Auto) 100 (0-100) /uL PT 17.9 H (10.1-12.7) SECONDS INR 1.6 H (0.9-1.3) APTT 38 H (26-36) SECONDS Sodium (137-145) mmol/L Potassium (3.4-5.1) mmol/L Chloride (98-107) mmol/L Carbon Dioxide (22-32) mmol/L BUN (9-20) mg/dL Creatinine (0.66-1.25) mg/dL Estimated GFR (>60) mL/min BUN/Creatinine Ratio (6-22) Glucose (80-110) mg/dL Lactate (0.7-2.1) mmol/L Calcium (8.4-10.2) mg/dL Total Bilirubin (0.2-1.3) mg/dL AST (17-59) IU/L ALT (<50) IU/L Alkaline Phosphatase (38-126) U/L Total Protein (6.3-8.2) g/dL Albumin (3.5-5.0) g/dL Globulin (1.7-4.1) g/dL Albumin/Globulin Ratio (1.0-2.8) Urine Color Yellow Urine Appearance Clear Urine pH 6.5 (4.5-8.0) Ur Specific [place] 1.010 (1.000-1.035) Urine Protein Negative (Negative) Urine Glucose (UA) Negative (Negative) g/dL Urine Ketones Negative (NEGATIVE) Urine Occult Blood Negative (Negative) Urine Nitrate Negative (Negative) Urine Bilirubin Negative (NEGATIVE) Urine Urobilinogen 0.2 (0.2) E.U./dL Ur Leukocyte Esterase Negative (NEGATIVE) Urine RBC None seen (0-5/HPF) Urine WBC None seen (0-5/HPF) Ur Squamous Epith Cells None seen (0-5/HPF) Urine Bacteria None seen (None) Ur Culture Indicated? Cult not indicated SARS-CoV-2 (PCR) (Negative) 10/30/22 10/30/22 10/30/22 Range/Units 03:59 07:30 12:10 WBC (4.5-11.0) X10^3/uL RBC (4.5-5.9) X10^6/uL Hgb (13.5-17.5) g/dL Hct (41-53) % MCV (80-100) fL MCH (26-34) PG MCHC (30-36) % RDW (11.6-14.8) % Plt Count (150-400) X10^3/uL Neut % (Auto) (50-75) % Lymph % (Auto) (25-40) % Bennett % (Auto) (3-14) % Eos % (Auto) (2-4) % Baso % (Auto) (0-2) % Neut # (Auto) (1823-9814) /uL Lymph # (Auto) (8768-8019) /uL Bennett # (Auto) (0-900) /uL Eos # (Auto) (0-450) /uL Baso # (Auto) (0-100) /uL PT (10.1-12.7) SECONDS INR (0.9-1.3) APTT (26-36) SECONDS Sodium 138 137 (137-145) mmol/L Potassium 5.4 H 5.1 (3.4-5.1) mmol/L Chloride 106 105 (98-107) mmol/L Carbon Dioxide 23 23 (22-32) mmol/L BUN 33 H 31 H (9-20) mg/dL Creatinine 2.20 H 2.14 H (0.66-1.25) mg/dL Estimated GFR 31 L 32 L (>60) mL/min BUN/Creatinine Ratio 15.0 14.5 (6-22) Glucose 128 H 171 H (80-110) mg/dL Lactate (0.7-2.1) mmol/L Calcium 8.5 8.6 (8.4-10.2) mg/dL Total Bilirubin 0.3 (0.2-1.3) mg/dL AST 20 (17-59) IU/L ALT 21 (<50) IU/L Alkaline Phosphatase 112 (38-126) U/L Total Protein 6.7 (6.3-8.2) g/dL Albumin 3.7 (3.5-5.0) g/dL Globulin 3.0 (1.7-4.1) g/dL Albumin/Globulin Ratio 1.2 (1.0-2.8) Urine Color Urine Appearance Urine pH (4.5-8.0) Ur Specific [place] (1.000-1.035) Urine Protein (Negative) Urine Glucose (UA) (Negative) g/dL Urine Ketones (NEGATIVE) Urine Occult Blood (Negative) Urine Nitrate (Negative) Urine Bilirubin (NEGATIVE) Urine Urobilinogen (0.2) E.U./dL Ur Leukocyte Esterase (NEGATIVE) Urine RBC (0-5/HPF) Urine WBC (0-5/HPF) Ur Squamous Epith Cells (0-5/HPF) Urine Bacteria (None) Ur Culture Indicated? SARS-CoV-2 (PCR) Negative (Negative) Point of Care Testing Glucose POC 154 MDM Narrative Medical decision making narrative: Patient brought in by ambulance from half-way for complains of back pain and chills. Patient seen here 11 days ago for UTI, CT scan imaging, patient did see urologist October 22 and scheduled for ureteral stent. Patient has been prescribed pain medication and nausea medication without any relief. Patient has history of prostate cancer. Please see CT report and urology office report below. Urine culture positive Proteus mirabilis. Sensitive to cephalexin, patient sent home on cephalexin. After history and exam CBC CMP blood culture CT KUB lactic acid procalcitonin ordered MDM CC: Back pain and chills Complicating co-morbidities: History of prostate cancer Data collected from: Patient Medical records reviewed: ER visit October 18, 2022, urology office visit October 22, 2022 CT results from October 18, 2022 Differential considered: Includes but not limited to sepsis pyelonephritis metastatic cancer Exam documented above, pertinent findings include: Tender lower back Lab Test results independently reviewed as above. 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 Previously 3.4 x 4.4. 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 Consultations: 5:51 p.m.. I spoke with Jeanine, apartment house manager swing manager at [facility]. They still have no beds. However I was able to contact Dr. Hammond, urologist at [facility]. At the [facility] there is very little to be done other than waiting for a bed for transfer. However it is possible if we have Interventional Radiology to do percutaneous drainage as a temporary measurement. Treatments: Dilaudid Juve Martinez Re-evaluations: 11:40 a.m.. Updated patient results and need to transfer. He is aware that he needs to go to [facility] for his providers have been working to get him to [facility] because his insurance will only cover at [facility]. Pain is controlled at this time. Discussion: 6:00 p.m.. Deon: Sign out Dr Gutiérrez, tomorrow if possible radiology services, may need percutaneous drainage. However awaiting at this time for [facility] Diagnosis: Patient signed out to me by Dr. Gutiérrez. Patient having intermittent pain throughout the night [place] is added. Apparently patient is being transferred over to [facility] we have called to confirm this urology has already been consulted but hospitalist has not yet accepted they do not have any bed availability. Apparently due to patient's insurance [facility] is the only place for patient to, this has yet to be confirmed. He does have worsening creatinine 2.76 previously 2.36. Given IV fluids. Lisinopril gabapentin are currently being held due to renal function. 10/30/22 Mank: Patient signed out to myself by Dr. Gutiérrez. Patient seen and independently seen by myself. Patient had intermittent pain throughout the night, plan or goal to be transferred to [facility] as patient has been told he can only go there secondary to insurance issues. Patient had moderate hydro on CT with blockage appears to be from lymphadenopathy. Patient's was supposed to have a ureteral stent placed here and there is no current Urology covered. He did have a culture on 10/18/2022 positive for Proteus mirabilis which is pansens itive. Patient had a.m. labs shows an anemia which appears stable no leukocytosis, he is not any fevers overnight. He has creatinine of 2.2 improved from yesterday at 2.76 but potassium was 5.4 was 4 6 about 24 hours ago, glucose normal at 128 with normal LFTs and otherwise normal sodium. Patient had fluids initiated this morning about 1:00 a.m. we will continue to monitor electrolytes, received Rocephin several doses of pain medication antinausea medication. Patient continues to make urine regularly. He is normally anticoagulated for prior aortic valve and nonischemic cardiomyopathy last echo is from 2020 which showed an EF of 45% improved from prior slight dyssynchronous contraction and [id number] global hypokinesis more prominent the posterior wall at that time there was some [id number] LVH as well and prosthetic valve with probable normal prosthetic valve function. Case has been discussed with Urology at [facility] but they did not have any bed availability yet patient is now accepted yet. Patient was seen he states he had an anxiety attack pull off his leads. His IV was kept in place he did state that he gets these intermittently. His pain is m oderately well controlled but still hurting, he also has not been on his gabapentin and he notes he has had withdrawal when this is stopped abruptly in the past. He is a little bit of slight tremor which he states normally happens when he gets anxiety attacks. Was given 0.5 mg of Ativan which was helpful. He notes his pain is medium well controlled. Plan for better pain control, Ativan as needed and will restart gabapentin. Patient is supposed to have labs sent at noon today to recheck his potassium and electrolytes. We have been in touch with his insurance company as they have stated he can not go to a facility other than [facility] which is making it difficult to transfer him for care. Contacted insurance company they are willing to allow for transfer whenever there is availability. I spoke with Dr. Delgado with Urology at [place] he would actually recommend percutaneous nephrostomy tube by IR. We will see if IR is available at [place]. Awaiting callback from [place]. Spoke with Dr. Purdy at [facility] who accepts for transfer. Patient had Rocephin 2G @ 0845am today. <Keshia Kate, DO - Last Filed: 10/30/22 18:21> Lab Data Labs: Lab Results 10/29/22 10/29/22 10/29/22 Range/Units 09:40 09:40 09:40 WBC 10.7 (4.5-11.0) X10^3/uL RBC 3.67 L (4.5-5.9) X10^6/uL Hgb 10.5 L (13.5-17.5) g/dL Hct 30.8 L (41-53) % MCV 84.0 (80-100) fL MCH 28.7 (26-34) PG MCHC 34.1 (30-36) % RDW 16.0 H (11.6-14.8) % Plt Count 184 (150-400) X10^3/uL Neut % (Auto) 82.6 H (50-75) % Lymph % (Auto) 8.0 L (25-40) % Bennett % (Auto) 6.2 (3-14) % Eos % (Auto) 2.6 (2-4) % Baso % (Auto) 0.6 (0-2) % Neut # (Auto) 8800 H (1472-4421) /uL Lymph # (Auto) 900 L (4127-6773) /uL Bennett # (Auto) 700 (0-900) /uL Eos # (Auto) 300 (0-450) /uL Baso # (Auto) 100 (0-100) /uL PT (10.1-12.7) SECONDS INR (0.9-1.3) APTT (26-36) SECONDS Sodium 138 (137-145) mmol/L Potassium 4.6 (3.4-5.1) mmol/L Chloride 106 (98-107) mmol/L Carbon Dioxide 22 (22-32) mmol/L BUN 36 H (9-20) mg/dL Creatinine 2.76 H (0.66-1.25) mg/dL Estimated GFR 23 L (>60) mL/min BUN/Creatinine Ratio 13.0 (6-22) Glucose 135 H (80-110) mg/dL Lactate 1.0 (0.7-2.1) mmol/L Calcium 8.6 (8.4-10.2) mg/dL Total Bilirubin 0.4 (0.2-1.3) mg/dL AST 20 (17-59) IU/L ALT 22 (<50) IU/L Alkaline Phosphatase 115 (38-126) U/L Total Protein 6.9 (6.3-8.2) g/dL Albumin 4.0 (3.5-5.0) g/dL Globulin 2.9 (1.7-4.1) g/dL Albumin/Globulin Ratio 1.4 (1.0-2.8) Urine Color Urine Appearance Urine pH (4.5-8.0) Ur Specific [place] (1.000-1.035) Urine Protein (Negative) Urine Glucose (UA) (Negative) g/dL Urine Ketones (NEGATIVE) Urine Occult Blood (Negative) Urine Nitrate (Negative) Urine Bilirubin (NEGATIVE) Urine Urobilinogen (0.2) E.U./dL Ur Leukocyte Esterase (NEGATIVE) Urine RBC (0-5/HPF) Urine WBC (0-5/HPF) Ur Squamous Epith Cells (0-5/HPF) Urine Bacteria (None) Ur Culture Indicated? SARS-CoV-2 (PCR) (Negative) 10/29/22 10/29/22 10/30/22 Range/Units 17:55 18:25 03:59 WBC 10.3 (4.5-11.0) X10^3/uL RBC 3.65 L (4.5-5.9) X10^6/uL Hgb 10.5 L (13.5-17.5) g/dL Hct 30.6 L (41-53) % MCV 83.8 (80-100) fL MCH 28.7 (26-34) PG MCHC 34.2 (30-36) % RDW 15.9 H (11.6-14.8) % Plt Count 177 (150-400) X10^3/uL Neut % (Auto) 80.9 H (50-75) % Lymph % (Auto) 10.8 L (25-40) % Bennett % (Auto) 5.4 (3-14) % Eos % (Auto) 2.0 (2-4) % Baso % (Auto) 0.9 (0-2) % Neut # (Auto) 8400 H (4324-5963) /uL Lymph # (Auto) 1100 (0110-9069) /uL Bennett # (Auto) 600 (0-900) /uL Eos # (Auto) 200 (0-450) /uL Baso # (Auto) 100 (0-100) /uL PT 17.9 H (10.1-12.7) SECONDS INR 1.6 H (0.9-1.3) APTT 38 H (26-36) SECONDS Sodium (137-145) mmol/L Potassium (3.4-5.1) mmol/L Chloride (98-107) mmol/L Carbon Dioxide (22-32) mmol/L BUN (9-20) mg/dL Creatinine (0.66-1.25) mg/dL Estimated GFR (>60) mL/min BUN/Creatinine Ratio (6-22) Glucose (80-110) mg/dL Lactate (0.7-2.1) mmol/L Calcium (8.4-10.2) mg/dL Total Bilirubin (0.2-1.3) mg/dL AST (17-59) IU/L ALT (<50) IU/L Alkaline Phosphatase (38-126) U/L Total Protein (6.3-8.2) g/dL Albumin (3.5-5.0) g/dL Globulin (1.7-4.1) g/dL Albumin/Globulin Ratio (1.0-2.8) Urine Color Yellow Urine Appearance Clear Urine pH 6.5 (4.5-8.0) Ur Specific [place] 1.010 (1.000-1.035) Urine Protein Negative (Negative) Urine Glucose (UA) Negative (Negative) g/dL Urine Ketones Negative (NEGATIVE) Urine Occult Blood Negative (Negative) Urine Nitrate Negative (Negative) Urine Bilirubin Negative (NEGATIVE) Urine Urobilinogen 0.2 (0.2) E.U./dL Ur Leukocyte Esterase Negative (NEGATIVE) Urine RBC None seen (0-5/HPF) Urine WBC None seen (0-5/HPF) Ur Squamous Epith Cells None seen (0-5/HPF) Urine Bacteria None seen (None) Ur Culture Indicated? Cult not indicated SARS-CoV-2 (PCR) (Negative) 10/30/22 10/30/22 10/30/22 Range/Units 03:59 07:30 12:10 WBC (4.5-11.0) X10^3/uL RBC (4.5-5.9) X10^6/uL Hgb (13.5-17.5) g/dL Hct (41-53) % MCV (80-100) fL MCH (26-34) PG MCHC (30-36) % RDW (11.6-14.8) % Plt Count (150-400) X10^3/uL Neut % (Auto) (50-75) % Lymph % (Auto) (25-40) % Bennett % (Auto) (3-14) % Eos % (Auto) (2-4) % Baso % (Auto) (0-2) % Neut # (Auto) (7778-6238) /uL Lymph # (Auto) (9227-6837) /uL Bennett # (Auto) (0-900) /uL Eos # (Auto) (0-450) /uL Baso # (Auto) (0-100) /uL PT (10.1-12.7) SECONDS INR (0.9-1.3) APTT (26-36) SECONDS Sodium 138 137 (137-145) mmol/L Potassium 5.4 H 5.1 (3.4-5.1) mmol/L Chloride 106 105 (98-107) mmol/L Carbon Dioxide 23 23 (22-32) mmol/L BUN 33 H 31 H (9-20) mg/dL Creatinine 2.20 H 2.14 H (0.66-1.25) mg/dL Estimated GFR 31 L 32 L (>60) mL/min BUN/Creatinine Ratio 15.0 14.5 (6-22) Glucose 128 H 171 H (80-110) mg/dL Lactate (0.7-2.1) mmol/L Calcium 8.5 8.6 (8.4-10.2) mg/dL Total Bilirubin 0.3 (0.2-1.3) mg/dL AST 20 (17-59) IU/L ALT 21 (<50) IU/L Alkaline Phosphatase 112 (38-126) U/L Total Protein 6.7 (6.3-8.2) g/dL Albumin 3.7 (3.5-5.0) g/dL Globulin 3.0 (1.7-4.1) g/dL Albumin/Globulin Ratio 1.2 (1.0-2.8) Urine Color Urine Appearance Urine pH (4.5-8.0) Ur Specific [place] (1.000-1.035) Urine Protein (Negative) Urine Glucose (UA) (Negative) g/dL Urine Ketones (NEGATIVE) Urine Occult Blood (Negative) Urine Nitrate (Negative) Urine Bilirubin (NEGATIVE) Urine Urobilinogen (0.2) E.U./dL Ur Leukocyte Esterase (NEGATIVE) Urine RBC (0-5/HPF) Urine WBC (0-5/HPF) Ur Squamous Epith Cells (0-5/HPF) Urine Bacteria (None) Ur Culture Indicated? SARS-CoV-2 (PCR) Negative (Negative) Point of Care Testing Glucose POC 154 MDM Narrative Medical decision making narrative: Patient brought in by ambulance from half-way for complains of back pain and chills. Patient seen here 11 days ago for UTI, CT scan imaging, patient did see urologist October 22 and scheduled for ureteral stent. Patient has been prescribed pain medication and nausea medication without any relief. Patient has history of prostate cancer. Please see CT report and urology office report below. Urine culture positive Proteus mirabilis. Sensitive to cephalexin, patient sent home on cephalexin. After history and exam CBC CMP blood culture CT KUB lactic acid procalcitonin ordered [facility] CC: Back pain and chills Complicating co-morbidities: History of prostate cancer Data collected from: Patient Medical records reviewed: ER visit October 18, 2022, urology office visit October 22, 2022 CT results from October 18, 2022 Differential considered: Includes but not limited to sepsis pyelonephritis metastatic cancer Exam documented above, pertinent findings include: Tender lower back Lab Test results independently reviewed as above. 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 Previously 3.4 x 4.4. 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 Consultations: 5:51 p.m.. I spoke with Jeanine, apartment house manager swing manager at [facility]. They still have no beds. However I was able to contact Dr. Hammond, urologist at [facility]. At [facility] there is very little to be done other than waiting for a bed for transfer. However it is possible if we have Interventional Radiology to do percutaneous drainage as a temporary measurement. Treatments: Dilaudid Zofran Rocephin Re-evaluations: 11:40 a.m.. Updated patient results and need to transfer. He is aware that he needs to go to [facility] for his providers have been working to get him to [facility] because his insurance will only cover at [facility]. Pain is controlled at this time. Discussion: 6:00 p.m.. Deon: Sign out Dr Gutiérrez, tomorrow if possible radiology services, may need percutaneous drainage. However awaiting at this time for [facility] Diagnosis: Patient signed out to me by Dr. Gutiérrez. Patient having intermittent pain throughout the night [place] is added. Apparently patient is being transferred over to [facility] we have called to confirm this urology has already been consulted but hospitalist has not yet accepted they do not have any bed availability. Apparently due to patient's insurance [facility] is the only place for patient to go. He does have worsening creatinine 2.76 previously 2.36. Given IV fluids. Lisinopril gabapentin are currently being held due to renal function. 10/30/22 Mank: Patient signed out to myself by Dr. Gutiérrez. Patient seen and independently seen by myself. Patient had intermittent pain throughout the night, plan or goal to be transferred to [facility] as patient has been told he can only go there secondary to insurance issues. Patient had moderate hydro on CT with blockage appears to be from lymphadenopathy. Patient's was supposed to huitron ve a ureteral stent placed here and there is no current Urology covered. He did have a culture on 10/18/2022 positive for Proteus mirabilis which is pansensitive. Patient had a.m. labs shows an anemia which appears stable no leukocytosis, he is not any fevers overnight. He has creatinine of 2.2 improved from yesterday at 2.76 but potassium was 5.4 was 4 6 about 24 hours ago, glucose normal at 128 with normal LFTs and otherwise normal sodium. Patient had fluids initiated this morning about 1:00 a.m. we will continue to monitor electrolytes, received Rocephin several doses of pain medication antinausea medication. Patient continues to make urine regularly. He is normally anticoagulated for prior aortic valve and nonischemic cardiomyopathy last echo is from 2020 which showed an EF of 45% improved from prior slight dyssynchronous contraction and [id number] global hypokinesis more prominent the posterior wall at that time there was some srgr-tw-cenvjpah LVH as well and prosthetic valve with probable normal prosthetic valve function. Case has been discussed with Urology at [facility] but they did not have any bed availability yet patient is now accepted yet. Patient was seen he states he had an anxiety attack pull off his leads. His IV was kept in place he did state that he gets these intermittently. His pain is moderately well controlled but still hurting, he also has not been on his gabapentin and he notes he has had withdrawal when this is stopped abruptly in the past. He is a little bit of slight tremor which he states normally happens when he gets anxiety attacks. Was given 0.5 mg of Ativan which was helpful. He notes his pain is medium well controlled. Plan for better pain control, Ativan as needed and will restart gabapentin. Patient is supposed to have labs sent at noon today to recheck his potassium and electrolytes. We have been in touch with his insurance company as they have stated he can not go to a facility other than [facility] which is making it difficult to transfer him for care. Contacted insurance company they are willing to allow for transfer whenever there is availability. I spoke with Dr. Delgado with Urology at [place] he would actually recommend percutaneous nephrostomy tube by IR. We will see if IR is available at [facility]. Awaiting callback from [facility]. Spoke with Dr. Purdy at [facility] who accepts for transfer. Patient had Rocephin 2G @ 0845am today. Discharge Plan Departure Patient Disposition: [facility] Clinical Impression: Hydronephrosis of right kidney, Prostate cancer Prescriptions: No Action Plavix tablet 75 mg PO QAM metoprolol succinate 12.5 mg PO QAM Zoloft 100 mg PO QAM Mirapex 1 mg PO BEDTIME metformin 500 mg PO BID apixaban 5 mg PO BID insulin lispro 100 unit/mL Insulin Pen See Rx Instructions .ROUTE .COMPLEX Rx Instructions: sliding scale per hospital protocal ibuprofen 400 mg tablet 400 mg PO PRN PRN (Reason: Pain, Mild) acetaminophen 325 mg Tablet 650 mg PO Q4H PRN (Reason: pain) atorvastatin 40 mg Tablet 40 mg PO BEDTIME Antacid (calcium carbonate) 215 mg calcium (500 mg) Tablet,Chewable 500 mg DAILY furosemide 40 mg Tablet 40 mg PO DAILY gabapentin 100 mg Tablet 100 mg PO TID gabapentin 300 mg Tablet 600 mg PO TID ferrous sulfate 325 mg (65 mg iron) Tablet 325 mg DAILY metoprolol succinate 25 mg Tablet Extended Release 24 Hr 12.5 mg PO DAILY lisinopril 2.5 mg Tablet 2.5 mg PO DAILY insulin glargine 100 unit/mL Cartridge 55 unit SUBCUT QPM nystatin 100,000 unit/gram Cream 1 applic TOPICAL PRN PRN (Reason: Rash) pramipexole 0.5 mg Tablet 0.5 mg PO BEDTIME pantoprazole 40 mg Tablet,Delayed Release (Dr/Ec) 40 mg PO DAILY ropinirole 1 mg Tablet 1.5 mg PO TID trazodone 50 mg Tablet 75 mg PO BEDTIME tolterodine 4 mg Capsule,Extended Release 24hr 4 mg PO DAILY spironolactone 25 mg Tablet 25 mg PO BID warfarin 5 mg Tablet See Rx Instructions .ROUTE .COMPLEX Rx Instructions: 5 mg orally. QWedn warfarin 5 mg Tablet See Rx Instructions .ROUTE .COMPLEX Rx Instructions: 5mg, 1.5 tablet PO q mon,tues,maddy,fri,sat,sun sertraline 50 mg Tablet 50 mg PO DAILY tramadol 100 mg Tablet 100 mg PO Q6H PRN (Reason: pain) Rx Instructions: DNExceed 3 doses/24h insulin lispro 100 unit/mL Cartridge 1 sliding scale dose SUBCUT USEASDIRECTD hydrocodone-acetaminophen 5-325 mg tablet 2 tab PO Q6H PRN (Reason: pain) Qty: 30 0RF nystatin-triamcinolone Cream topical loperamide 2 mg tablet 2 mg PO Q6H PRN hydroxyzine pamoate [Vistaril] 25 mg capsule 25 mg PO BEDTIME Referrals: Vandana Hart MD [Primary Care Provider] -
[2022-10-29] MEDS: HYDROMORPHONE 1 MG INJ IV ×4 (09:49→21:12)
[2022-10-29] MEDS: ONDANSETRON 4 MG/2 ML INJ IV (09:49)
[2022-10-29 09:53] LABS: Add Manual Diff / Slide Review NO; Basophils Absolute Auto 100 /uL (0-100); Basophils Percent Auto 0.6 % (0-2); Eosinophils Absolute Auto 300 /uL (0-450); Eosinophils Percent Auto 2.6 % (2-4); Hematocrit 30.8 % (41-53); Hemoglobin 10.5 g/dL (13.5-17.5); Lymphocytes Absolute Auto 900 /uL (1100-4500); Mean Corpuscular HGB Conc 34.1 % (30-36); Mean Corpuscular Hemoglobin 28.7 PG (26-34); Monocytes Absolute Auto 700 /uL (0-900); Monocytes Percent Auto 6.2 % (3-14); Neutrophils Absolute Auto 8800 /uL (1500-7000); Neutrophils Percent Auto 82.6 % (50-75); Platelet Count 184 X10^3/uL (150-400); Red Blood Cell Count 3.67 X10^6/uL (4.5-5.9); White Blood Cell Count 10.7 X10^3/uL (4.5-11.0)
[2022-10-29 10:07] LABS: Alanine Aminotransferase 22 IU/L (<50); Albumin Globulin Ratio 1.4 (1.0-2.8); Alkaline Phosphatase 115 U/L (38-126); Aspartate Aminotransferase 20 IU/L (17-59); Bilirubin Total 0.4 mg/dL (0.2-1.3); Blood Urea Nitrogen 36 mg/dL (9-20); Calcium 8.6 mg/dL (8.4-10.2); Carbon Dioxide 22 mmol/L (22-32); Chloride 106 mmol/L (98-107); Estimated Glomerular Filt Rate 23 mL/min (>60); Globulin 2.9 g/dL (1.7-4.1); Glucose 135 mg/dL (80-110); HEMOLYSIS < 15 (0-50); Potassium 4.6 mmol/L (3.4-5.1); Sodium 138 mmol/L (137-145); Total Protein 6.9 g/dL (6.3-8.2)
[2022-10-29] MEDS: cefTRIAXone 2,000 MG in SODIUM CHLORIDE 0.9% 100 ML 200 MG IV (12:22)
[2022-10-29 18:08] LABS: Appearance Urine UA CLEAR; Bilirubin Urine UA NEGATIVE (NEGATIVE); Color Urine UA YELLOW; Glucose Urine UA NEGATIVE (Negative); Ketones Urine UA NEGATIVE (NEGATIVE); Leukocyte Esterase Urine UA NEGATIVE (NEGATIVE); Nitrite Urine UA NEGATIVE (Negative); Occult Blood Urine UA NEGATIVE (Negative); Protein Urine UA NEGATIVE (Negative); Urobilinogen Urine UA 0.2 E.U./dL (0.2); pH Urine UA 6.5 (4.5-8.0)
[2022-10-29 18:34] LABS: Bacteria Urine None Seen; Culture Indicated Urine Cult Not Indicated; RBC Urine None Seen (0-5/HPF); Squamous Epithelial Cell Urine None Seen (0-5/HPF); WBC Urine None Seen (0-5/HPF)
[2022-10-29 18:40] LABS: INR 1.6 (0.9-1.3); Prothrombin Time 17.9 SECONDS (10.1-12.7)
[2022-10-29 18:54] LABS: PTT Partial Thromboplastin Tim 38 SECONDS (26-36)
[2022-10-29] MEDS: SERTRALINE 50 MG TABLET PO (21:20)
[2022-10-29] MEDS: TRAZODONE 50 MG TABLET 75 MG PO (21:20)
[2022-10-29] MEDS: ROPINIROLE 1 MG TABLET 1.5 MG PO (21:21)
[2022-10-30] VITALS (51 sets, daily range): BP systolic 93–176; BP diastolic 48–92; PULSE 59–79; RESP 10–24; O2SAT 95–98
[2022-10-30] MEDS: ONDANSETRON 4 MG/2 ML INJ IV ×2 (00:05→08:09)
[2022-10-30] MEDS: HYDROCODONE/ACET 5/325 TABLET 2 TAB PO ×3 (00:57→11:52)
[2022-10-30] MEDS: SODIUM CHLORIDE 0.9% 1,000 ML 100 ML IV ×3 (00:57→11:46)
[2022-10-30 04:07] LABS: Add Manual Diff / Slide Review NO; Basophils Absolute Auto 100 /uL (0-100); Basophils Percent Auto 0.9 % (0-2); Eosinophils Absolute Auto 200 /uL (0-450); Hematocrit 30.6 % (41-53); Hemoglobin 10.5 g/dL (13.5-17.5); Lymphocytes Absolute Auto 1100 /uL (1100-4500); Lymphocytes Percent Auto 10.8 % (25-40); Mean Corpuscular HGB Conc 34.2 % (30-36); Mean Corpuscular Hemoglobin 28.7 PG (26-34); Mean Corpuscular Volume 83.8 fL (80-100); Monocytes Absolute Auto 600 /uL (0-900); Monocytes Percent Auto 5.4 % (3-14); Neutrophils Absolute Auto 8400 /uL (1500-7000); Neutrophils Percent Auto 80.9 % (50-75); Platelet Count 177 X10^3/uL (150-400); Red Blood Cell Count 3.65 X10^6/uL (4.5-5.9); Red Cell Distribution Width 15.9 % (11.6-14.8); White Blood Cell Count 10.3 X10^3/uL (4.5-11.0)
[2022-10-30 04:19] LABS: Alanine Aminotransferase 21 IU/L (<50); Albumin 3.7 g/dL (3.5-5.0); Albumin Globulin Ratio 1.2 (1.0-2.8); Alkaline Phosphatase 112 U/L (38-126); Aspartate Aminotransferase 20 IU/L (17-59); Bilirubin Total 0.3 mg/dL (0.2-1.3); Blood Urea Nitrogen 33 mg/dL (9-20); Calcium 8.5 mg/dL (8.4-10.2); Carbon Dioxide 23 mmol/L (22-32); Chloride 106 mmol/L (98-107); Estimated Glomerular Filt Rate 31 mL/min (>60); Glucose 128 mg/dL (80-110); HEMOLYSIS < 15 (0-50); Sodium 138 mmol/L (137-145); Total Protein 6.7 g/dL (6.3-8.2)
[2022-10-30 04:21] LABS: Potassium 5.4 mmol/L (3.4-5.1)
--- NOTE | 2022-10-30 07:23 | PC.NURSE ---
Pt states he doing well, no significant changes. Pain is tolerable since his last pain medication was given. Talked with pt about trying to sit up in a recliner for breakfast and pt agrees. Pt's BG 128 with morning labs
[2022-10-30] MEDS: HYDROMORPHONE 1 MG INJ IV (07:42)
[2022-10-30 07:58] LABS: COVID19 -Nasal RAPID Negative (Negative)
--- NOTE | 2022-10-30 08:00 | PC.NURSE ---
Pt moved to recliner to eat breakfast. ER stretcher moved out and brought in more comfortable hospital bed
[2022-10-30] MEDS: ROPINIROLE 1 MG TABLET 1.5 MG PO ×2 (08:16→14:29)
[2022-10-30] MEDS: PANTOPRAZOLE DR 20 MG TABLET 40 MG PO (08:17)
[2022-10-30] MEDS: METOPROLOL ER 25 MG TABLET 12.5 MG PO (08:17)
[2022-10-30] MEDS: cefTRIAXone 2,000 MG in SODIUM CHLORIDE 0.9% 100 ML 200 MG IV (08:42)
--- NOTE | 2022-10-30 08:50 | PC.NURSE ---
Pt while sleeping drops O2 to 86%. Placed on 2L O2 via NC
[2022-10-30] MEDS: LORazepam 2 MG/ML INJ 0.5 MG IV ×2 (11:10→11:47)
--- NOTE | 2022-10-30 11:16 | PC.NURSE ---
Pt started getting aggitated and removing monitors. He states that he was having a panic attack. Dr. Kate notified and gave Ativan. Pt moved from bed to recliner with walker. Pt seems to be doing better at this time
[2022-10-30] MEDS: GABAPENTIN 600 MG TABLET PO (12:00)
[2022-10-30] MEDS: GABAPENTIN 100 MG CAPSULE PO (12:01)
--- NOTE | 2022-10-30 12:14 | PC.NURSE ---
Pt states that he normally take 2units of reg insulin at every meal if he BG is over 150. And he take 65 units of Lantus at bedtime
[2022-10-30 12:43] LABS: BUN Creatinine Ratio 14.5 (6-22); Blood Urea Nitrogen 31 mg/dL (9-20); Calcium 8.6 mg/dL (8.4-10.2); Carbon Dioxide 23 mmol/L (22-32); Chloride 105 mmol/L (98-107); Estimated Glomerular Filt Rate 32 mL/min (>60); Glucose 171 mg/dL (80-110); HEMOLYSIS < 15 (0-50); Potassium 5.1 mmol/L (3.4-5.1); Sodium 137 mmol/L (137-145)
--- NOTE | 2022-10-30 13:17 | CM.SWNOTE ---
ED POSITION CLASSIFICATION SPECIALIST/DCP Note POSITION CLASSIFICATION SPECIALIST receives consult from ED provider to assist with navigating transfer with patient's insurance company. It was informed to previous ED provider that patient can only transfer to [facility] for pre-authorized scheduled outpatient surgery. At this point in time, patient is in need of emergency surgery for a ureteric stent due to patient's cancer blocking his Kidney. Patient's PCP is Dr. Hart, patient has [facility], Medicare and Medicaid insurance. Patient has hx of Prostate cancer, enlarged lymph node, CHF exacerbation, hypoxia, chronic kidney failure, sepsis, Hydronephrosis, Diebetes. Patient has aortic valve replacement and Pacemaker. POSITION CLASSIFICATION SPECIALIST calls [facility], it is reported that from the ED patient can transfer to any needed higher level of care hospital and the receiving hospital will seek authorization for patient's emergent surgery. POSITION CLASSIFICATION SPECIALIST informs monorail charger operator, ED provider and [facility]. [facility] to seek transfer for patient at higher level of care hospital with urologist. ROB Urias
--- NOTE | 2022-10-30 15:26 | PC.NURSE ---
Report called to ASAD Martinez on 2N at [facility]
== END 2022-10-30 17:57 | disposition short-term general hospital (02) ==
PROVIDERS: Emergency Medicine; Emergency Provider Emergency Medicine; PCP Internal Medicine
DX: N13.30 Unspecified hydronephrosis (principal); C61 Malignant neoplasm of prostate; R79.89 Other specified abnormal findings of blood chemistry; Z79.899 Other long term (current) drug therapy; Z20.822 Contact with and (suspected) exposure to COVID-19
CPT/HCPCS: 36415; 74176; 80048; 80053; 81001; 82962; 83605; 85025; 85610; 85730; 87040; 87086; 87635; 96365; 96366; 96375; 96376; 99285; C9803; J0696; J1170; J2060; J2405

== ENCOUNTER → 2022-12-01 07:12 | Outpatient (ROUT) | payer MEDICARE, MEDICAID, SELFPAY ==
[2022-09-14 10:49] VITALS: BMI 37.3
[2022-12-01 07:54] LABS: Add Manual Diff / Slide Review NO; Basophils Absolute Auto 100 /uL (0-100); Basophils Percent Auto 0.8 % (0-2); Eosinophils Absolute Auto 300 /uL (0-450); Eosinophils Percent Auto 3.6 % (2-4); Hematocrit 30.5 % (41-53); Hemoglobin 10.5 g/dL (13.5-17.5); Lymphocytes Absolute Auto 1400 /uL (1100-4500); Lymphocytes Percent Auto 17.1 % (25-40); Mean Corpuscular HGB Conc 34.5 % (30-36); Mean Corpuscular Hemoglobin 28.9 PG (26-34); Mean Corpuscular Volume 83.6 fL (80-100); Monocytes Absolute Auto 500 /uL (0-900); Monocytes Percent Auto 6.1 % (3-14); Neutrophils Absolute Auto 5800 /uL (1500-7000); Neutrophils Percent Auto 72.4 % (50-75); Platelet Count 175 X10^3/uL (150-400); Red Blood Cell Count 3.65 X10^6/uL (4.5-5.9); Red Cell Distribution Width 14.9 % (11.6-14.8); White Blood Cell Count 8.1 X10^3/uL (4.5-11.0)
[2022-12-01 08:13] LABS: Alanine Aminotransferase 19 IU/L (<50); Albumin 3.7 g/dL (3.5-5.0); Albumin Globulin Ratio 1.5 (1.0-2.8); Alkaline Phosphatase 92 U/L (38-126); Aspartate Aminotransferase 19 IU/L (17-59); BUN Creatinine Ratio 14.5 (6-22); Bilirubin Total 0.2 mg/dL (0.2-1.3); Blood Urea Nitrogen 30 mg/dL (9-20); Calcium 8.8 mg/dL (8.4-10.2); Carbon Dioxide 25 mmol/L (22-32); Chloride 101 mmol/L (98-107); Estimated Glomerular Filt Rate 33 mL/min (>60); Globulin 2.5 g/dL (1.7-4.1); Glucose 135 mg/dL (80-110); HEMOLYSIS < 15 (0-50); Potassium 4.1 mmol/L (3.4-5.1); Sodium 136 mmol/L (137-145); Total Protein 6.2 g/dL (6.3-8.2)
== END ==
PROVIDERS: PCP Internal Medicine; Visit Provider Internal Medicine
DX: N17.9 Acute kidney failure, unspecified (principal); D72.829 Elevated white blood cell count, unspecified
CPT/HCPCS: 36415; 80053; 85025

== ENCOUNTER → 2022-12-03 18:29 | Outpatient (ROUT) | payer MEDICARE, MEDICAID, SELFPAY ==
[2022-09-14 10:49] VITALS: BMI 37.3
[2022-12-03 18:49] LABS: Appearance Urine UA CLOUDY; Color Urine UA Straw
[2022-12-03 18:51] LABS: Glucose Urine UA NEGATIVE (Negative); Ketones Urine UA NEGATIVE (NEGATIVE); Occult Blood Urine UA 4+ (Negative); Protein Urine UA 2+ (Negative)
[2022-12-03 18:52] LABS: Bilirubin Urine UA Negative (NEGATIVE); Leukocyte Esterase Urine UA 4+ (NEGATIVE); Nitrite Urine UA POSITIVE (Negative); Urobilinogen Urine UA 0.2 E.U./dL (0.2)
[2022-12-03 18:53] LABS: Amorphous Sediment Urine 1+; Bacteria Urine Many (>30); Culture Indicated Urine Specimen Cultured; Mucus Urine 1+ (Negative); RBC Urine 5-10/HPF (0-5/HPF); Squamous Epithelial Cell Urine 0-1 /HPF (0-5/HPF); WBC Urine >100/HPF (0-5/HPF)
== END ==
PROVIDERS: PCP Internal Medicine; Visit Provider Nurse Practitioner Gerontology
DX: N39.0 Urinary tract infection, site not specified (principal)
CPT/HCPCS: 81001; 87077; 87086; 87147; 87186

== ENCOUNTER 2022-12-13 23:22 | Observation (INO) | payer MEDICARE, MEDICAID, SELFPAY ==
[2022-09-14 10:49] VITALS: BMI 37.3
[2022-12-13 23:26] VITALS: BP 101/53; PULSE 77; O2SAT 90
[2022-12-13 23:30] VITALS: BP 100/50; BP 101/53; PULSE 75; PULSE 78; RESP 22; TEMP 37.3; O2SAT 90; O2SAT 91; BMI 34.7
--- NOTE | 2022-12-13 23:36 | DI.RAD.S_ITS ---
PROCEDURE: XR CHEST 1V INDICATIONS: chest pain TECHNIQUE: One view of the chest was acquired. COMPARISON: [facility], CR, XR CHEST 1V, 06/13/2022, 8:36. FINDINGS: Surgical changes and devices: Pacemaker and valve replacement unchanged Lungs and pleura: Lungs are clear. No pleural effusions or pneumothorax. Mediastinum: Mediastinal contours appear normal. Heart size is enlarged. Bones and chest wall: No suspicious bony lesions. Overlying soft tissues appear unremarkable. IMPRESSION: No acute pulmonary process. Dictated by: Lindsey Holder M.D. on 12/14/2022 at 0:16 Approved by: Lindsey Holder M.D. on 12/14/2022 at 0:16
--- NOTE | 2022-12-13 23:47 | ED.CHESTPAIN ---
HPI - Chest Pain General Chief Complaint: Chest Pain Stated Complaint: n/V x2 Time Seen by Provider: 12/13/22 23:47 Source: patient and EMS Mode of arrival: EMS Limitations: no limitations History of Present Illness HPI narrative: Patient is a 72-year-old male who resides at long-term care assisted living facility history pacemaker, coronary artery disease, prostate cancer, nephrostomy tube with MRSA on the right side presenting today with nausea vomiting and chest pain. He reports that he was recently diagnosed with a MRSA/Acaligenes UTI on 12/03, currently on Bactrim which he started on December 07 in his set to finish on the . He reports that he has been feeling fatigued with decrease in appetite over the last 2 days. He is only been able able to eat a couple fruit here and there. Drinking a little bit of fluid only. Today he was having some chest pain a little bit shortness of breath while he was nauseous and vomiting. He did not pass out. He generally does not feel well. He denies any bloody stool he looks slightly pale he is taking warfarin for paroxysmal atrial fibrillation. Records from [facility] have been received and reviewed. Patient diagnosed with an obstructive uropathy required nephrostomy tube. Obstruction is likely secondary to relapsing prostate adenocarcinoma. Related Data Home Medications Medication Instructions Recorded Confirmed Mirapex 1 mg PO BEDTIME 09/29/20 10/22/22 Plavix 75 mg PO QAM 09/29/20 10/02/22 Zoloft 100 mg PO QAM 09/29/20 10/02/22 apixaban 5 mg PO BID 09/29/20 10/02/22 insulin lispro 100 unit/mL See Rx Instructions .Route .COMPLEX 09/29/20 10/02/22 subcutaneous pen metformin 500 mg PO BID 09/29/20 10/02/22 metoprolol succinate 12.5 mg PO QAM 09/29/20 10/22/22 ibuprofen 400 mg tablet 400 mg PO PRN PRN Pain, Mild 10/23/20 10/02/22 loperamide 2 mg tablet 2 mg PO Q6H PRN 04/22/21 10/22/22 nystatin-triamcinolone topical applic topical 04/22/21 10/02/22 cream acetaminophen 325 mg tablet 650 mg PO Q4H PRN pain 06/13/22 10/22/22 atorvastatin 40 mg tablet 40 mg PO BEDTIME 06/13/22 10/22/22 calcium carbonate 215 mg calcium 500 mg DAILY 06/13/22 10/22/22 (500 mg) chewable tablet (Antacid (calcium carbonate)) ferrous sulfate 325 mg (65 mg 325 mg DAILY 06/13/22 10/22/22 iron) tablet furosemide 40 mg tablet 40 mg PO DAILY 06/13/22 10/22/22 gabapentin 100 mg tablet 100 mg PO TID 06/13/22 10/02/22 gabapentin 300 mg tablet 600 mg PO TID 06/13/22 10/22/22 insulin glargine 100 unit/mL 55 unit SUBCUT QPM 06/13/22 10/22/22 subcutaneous cartridge insulin lispro 100 unit/mL 1 sliding scale dose SUBCUT 06/13/22 10/02/22 subcutaneous cartridge USEASDIRECTD lisinopril 2.5 mg tablet 2.5 mg PO DAILY 06/13/22 10/22/22 metoprolol succinate 25 mg 12.5 mg PO DAILY 06/13/22 10/22/22 tablet,extended release 24 hr nystatin 100,000 unit/gram topical 1 applic topical PRN PRN Rash 06/13/22 10/02/22 cream pantoprazole 40 mg tablet,delayed 40 mg PO DAILY 06/13/22 10/22/22 release pramipexole 0.5 mg tablet 0.5 mg PO BEDTIME 06/13/22 10/22/22 ropinirole 1 mg tablet 1.5 mg PO TID 06/13/22 10/02/22 sertraline 50 mg tablet 50 mg PO DAILY 06/13/22 10/22/22 spironolactone 25 mg tablet 25 mg PO BID 06/13/22 10/22/22 tolterodine 4 mg capsule,extended 4 mg PO DAILY 06/13/22 10/22/22 release 24 hr tramadol 100 mg tablet 100 mg PO Q6H PRN pain 06/13/22 10/02/22 trazodone 50 mg tablet 75 mg PO BEDTIME 06/13/22 10/22/22 warfarin 5 mg tablet See Rx Instructions .Route .COMPLEX 06/13/22 10/22/22 warfarin 5 mg tablet See Rx Instructions .Route .COMPLEX 06/13/22 10/22/22 hydroxyzine pamoate 25 mg capsule 25 mg PO BEDTIME 08/03/22 10/22/22 (Vistaril) Previous Rx's Medication Instructions Recorded hydrocodone 5 mg-acetaminophen 325 2 tab PO Q6H PRN pain #30 tabs 10/18/22 mg tablet Allergies Allergy/AdvReac Type Severity Reaction Status Date / Time crab Allergy Severe Deathly Verified 10/23/22 11:54 sick aspartame Allergy Unknown Verified 10/22/22 15:15 carbidopa Allergy Hallucinations, Verified 10/23/22 11:54 anxiety morphine AdvReac Nausea/vomi Verified 10/23/22 11:54 ting Review of Systems Review of Systems ROS Unobtainable: All systems reviewed & are unremarkable except as noted in HPI and below Patient History Medical History Androgen deprivation therapy Arthritis Atrial fibrillation CAD (coronary artery disease) Chronic anticoagulation Congestive heart failure Depression Diabetes DVT (deep venous thrombosis) Enlarged lymph node First degree AV block GERD (gastroesophageal reflux disease) Gout History of left heart catheterization (12/2019) History of prostate cancer History of radiation therapy History of transcatheter aortic valve replacement (TAVR) (08/01/18) Hydronephrosis, right Hypertension LAFB (left anterior fascicular block) Osteoarthritis Pacemaker Paroxysmal A-fib Prostate cancer RBBB Sleep apnea Stress incontinence Stress incontinence, male Surgical History AICD (automatic cardioverter/defibrillator) present (12/30/20) H/O aortic valve replacement History of back surgery Hx of heart artery stent Family History Mother Coronary artery disease involving bypass graft of transplanted heart Cancer Hypertension Social History marital status: number of children: 3 household members: none Previous occupational history: retired Smoking Status: Former smoker alcohol intake: current caffeine: Yes Smoking Status: Former smoker tobacco type: cigarettes alcohol intake frequency: 0-2 drinks per day Substance Use Type: does not use and former substance user Exam Initial Vital Signs Initial Vital Signs: Vital Signs Pulse Rate 77 12/13/22 23:26 Blood Pressure 101/53 L 12/13/22 23:26 Pulse Oximetry 90 L 12/13/22 23:26 GENERAL: Chronically ill 72-year-old male appears slightly pale HEENT: Head atraumatic,EOMI, pupils reactive, face symmetric, moist mucous membranes CARDIOVASCULAR: Regular rate and rhythm without murmurs, rubs or gallops. RESPIRATORY: Breath sounds equal bilaterally, no wheezes rales or rhonchi. ABDOMEN: Soft, mild tenderness no guarding or rebound no distention : Right-sided nephrostomy tube in place EXTREMITIES: Normal range of motion, no clubbing or edema. Neurovascularly intact NEUROLOGICAL: Alert and oriented x4.Normal gait and speech. SKIN: Warm, dry, no laceration, no petechiae, no rashes or lesions. Course Orders Ordered: ED Orders 12/13/22 23:15 Complete Blood Count AUTO DIFF Stat Comprehensive Metabolic Panel Stat Lipase Stat Magnesium Stat PTT Partial Thromboplastin Jose Stat Prothrombin Time INR Stat Troponin & CK Cardiac Panel Stat 12/13/22 23:36 XR chest 1V Stat EKG-12 Lead Stat 12/13/22 23:38 Type and Screen Stat 12/14/22 00:07 Lactate (Lactic Acid) Stat Procalcitonin Stat 12/14/22 00:21 Blood Culture Stat 12/14/22 01:24 CT abdomen pelvis wo con Stat 12/14/22 01:25 UA Complete [Urinalysis and Microscopic] Stat Acetaminophen (Acetaminophen 325 Mg Tablet) 650 mg PO Q6H PRN PRN Reason: Fever/Mild Pain (1-3) Heparin Sodium (Porcine) (Heparin 5,000 Unit/Ml Vial) 5,000 unit SUBCUT BID [facility] Linezolid (Zyvox) 600 mg in 300 mls @ 600 mls/hr IV Q12H [facility] Last Admin: 12/14/22 06:11 Dose: 600 mls/hr Documented By: MS Ceftriaxone Sodium 1,000 mg/ (Sodium Chloride) 100 mls @ 200 mls/hr IV Q24H [facility] Ondansetron HCl (Ondansetron 4 Mg/2 Ml Inj) 4 mg IV Q8HR PRN PRN Reason: Nausea And Vomiting Discontinued Medications Aspirin (Aspirin 81 Mg Chew Tab) 324 mg PO NOW ONE Stop: 12/13/22 23:36 Last Admin: 12/13/22 23:52 Dose: 324 mg Documented By: GC Ceftriaxone Sodium (Ceftriaxone 2,000 Mg Vial) 1,000 mg IM NOW ONE Stop: 12/14/22 03:45 Last Admin: 12/14/22 06:39 Dose: Not Given Documented By: MS Sodium Chloride (Normal Saline 0.9%) 1,000 mls @ 1,000 mls/hr IV BOLUS ONE Stop: 12/14/22 01:06 Last Infusion: 12/14/22 01:20 Dose: 0 mls/hr Documented By: Admin: 12/14/22 00:20 Dose: 1,000 mls/hr Documented By: GC Vancomycin HCl/Dextrose (Vancomycin) 1,500 mg in 300 mls @ 200 mls/hr IV NOW ONE Stop: 12/14/22 02:52 Last Infusion: 12/14/22 03:22 Dose: 0 mls/hr Documented By: Admin: 12/14/22 01:44 Dose: 200 mls/hr Documented By: SHAKEEL Sodium Chloride (Normal Saline 0.9%) 1,000 mls @ 125 mls/hr IV CONT ANNAMARIE Last Admin: 12/14/22 06:40 Dose: Not Given Documented By: Ceftriaxone Sodium 1,000 mg/ (Sodium Chloride) 100 mls @ 200 mls/hr IV NOW ONE Stop: 12/14/22 03:55 Last Infusion: 12/14/22 04:41 Dose: 0 mls/hr Documented By: Admin: 12/14/22 04:06 Dose: 200 mls/hr Documented By: JAME Vital Signs Vital signs: Vital Signs - 8 hr 12/13/22 23:30 12/13/22 23:26 12/13/22 23:26 Temperature 99.1 F Pulse Rate 78 77 Respiratory Rate 22 Blood Pressure 101/53 L 101/53 L Pulse Oximetry 91 90 L Oxygen Delivery Method Room Air 12/13/22 23:30 12/13/22 23:30 12/14/22 00:00 Temperature Pulse Rate 75 Respiratory Rate Blood Pressure 100/50 L 94/55 L Pulse Oximetry 90 L Oxygen Delivery Method 12/14/22 00:00 12/14/22 00:30 12/14/22 00:31 Temperature Pulse Rate 69 71 Respiratory Rate 19 20 Blood Pressure 110/56 L Pulse Oximetry 92 93 Oxygen Delivery Method 12/14/22 00:31 12/14/22 01:00 12/14/22 01:00 Temperature Pulse Rate 71 65 Respiratory Rate 20 18 Blood Pressure 108/58 L Pulse Oximetry 93 Oxygen Delivery Method 12/14/22 01:30 12/14/22 01:31 12/14/22 01:31 Temperature Pulse Rate 76 75 Respiratory Rate 22 22 Blood Pressure 107/63 Pulse Oximetry Oxygen Delivery Method 12/14/22 01:51 12/14/22 01:51 12/14/22 02:00 Temperature Pulse Rate 67 Respiratory Rate 24 Blood Pressure 100/59 L 92/51 L Pulse Oximetry 93 Oxygen Delivery Method 12/14/22 02:00 12/14/22 02:30 12/14/22 02:51 Temperature Pulse Rate 62 61 63 Respiratory Rate 20 21 26 H Blood Pressure Pulse Oximetry 92 90 L 97 Oxygen Delivery Method 12/14/22 02:51 12/14/22 03:00 12/14/22 03:01 Temperature Pulse Rate 61 Respiratory Rate 22 Blood Pressure 96/55 L 98/53 L Pulse Oximetry 92 Oxygen Delivery Method 12/14/22 03:01 12/14/22 03:30 12/14/22 03:34 Temperature Pulse Rate 62 63 61 Respiratory Rate 24 26 H 19 Blood Pressure Pulse Oximetry 96 95 96 Oxygen Delivery Method 12/14/22 03:34 Temperature Pulse Rate Respiratory Rate Blood Pressure 104/48 L Pulse Oximetry Oxygen Delivery Method MDM - Chest Pain Lab Data 12/13/22 23:15 12/13/22 23:15 Labs: Lab Results 12/13/22 12/13/22 12/13/22 Range/Units 23:15 23:15 23:15 WBC 7.2 (4.5-11.0) X10^3/uL RBC 3.95 L (4.5-5.9) X10^6/uL Hgb 11.2 L (13.5-17.5) g/dL Hct 32.8 L (41-53) % MCV 83.2 (80-100) fL MCH 28.5 (26-34) PG MCHC 34.3 (30-36) % RDW 15.4 H (11.6-14.8) % Plt Count 122 L (150-400) X10^3/uL Neut % (Auto) 76.3 H (50-75) % Lymph % (Auto) 8.8 L (25-40) % [place] % (Auto) 7.8 (3-14) % Eos % (Auto) 6.8 H (2-4) % Baso % (Auto) 0.3 (0-2) % Neut # (Auto) 5500 (8328-5577) /uL Lymph # (Auto) 600 L (0234-4080) /uL [place] # (Auto) 600 (0-900) /uL Eos # (Auto) 500 H (0-450) /uL Baso # (Auto) 0 (0-100) /uL PT 43.3 H (10.1-12.7) SECONDS INR 3.7 H (0.9-1.3) APTT 56 H (26-36) SECONDS Sodium 128 L (137-145) mmol/L Potassium 4.6 (3.4-5.1) mmol/L Chloride 97 L (98-107) mmol/L Carbon Dioxide 17 L (22-32) mmol/L BUN 43 H (9-20) mg/dL Creatinine 3.41 H (0.66-1.25) mg/dL Estimated GFR 18 L (>60) mL/min BUN/Creatinine Ratio 12.6 (6-22) Glucose 132 H (80-110) mg/dL Lactate (0.7-2.1) mmol/L Calcium 8.4 (8.4-10.2) mg/dL Magnesium 1.8 (1.6-2.3) mg/dL Total Bilirubin 0.4 (0.2-1.3) mg/dL AST 23 (17-59) IU/L ALT 23 (<50) IU/L Alkaline Phosphatase 85 (38-126) U/L Total Creatine Kinase 51 L (55-170) U/L CK-MB (CK-2) TNP CK-MB (CK-2) Rel Index TNP Troponin I < 0.012 (0.01-0.034) ng/mL Total Protein 7.3 (6.3-8.2) g/dL Albumin 4.1 (3.5-5.0) g/dL Globulin 3.2 (1.7-4.1) g/dL Albumin/Globulin Ratio 1.3 (1.0-2.8) Lipase 55 (23-300) U/L Procalcitonin (<0.5) ng/mL Urine Color Urine Appearance Urine pH (4.5-8.0) Ur Specific [place] (1.000-1.035) Urine Protein (Negative) Urine Glucose (UA) (Negative) g/dL Urine Ketones (NEGATIVE) Urine Occult Blood (Negative) Urine Nitrate (Negative) Urine Bilirubin (NEGATIVE) Urine Urobilinogen (0.2) E.U./dL Ur Leukocyte Esterase (NEGATIVE) Urine RBC (0-5/HPF) Urine WBC (0-5/HPF) Ur Squamous Epith Cells (0-5/HPF) Urine Bacteria (None) Ur Culture Indicated? Blood Type Antibody Screen 12/13/22 12/13/22 12/14/22 Range/Units 23:15 23:15 00:14 WBC (4.5-11.0) X10^3/uL RBC (4.5-5.9) X10^6/uL Hgb (13.5-17.5) g/dL Hct (41-53) % MCV (80-100) fL MCH (26-34) PG MCHC (30-36) % RDW (11.6-14.8) % Plt Count (150-400) X10^3/uL Neut % (Auto) (50-75) % Lymph % (Auto) (25-40) % [place] % (Auto) (3-14) % Eos % (Auto) (2-4) % Baso % (Auto) (0-2) % Neut # (Auto) (1626-4943) /uL Lymph # (Auto) (9800-4276) /uL [place] # (Auto) (0-900) /uL Eos # (Auto) (0-450) /uL Baso # (Auto) (0-100) /uL PT (10.1-12.7) SECONDS INR (0.9-1.3) APTT (26-36) SECONDS Sodium (137-145) mmol/L Potassium (3.4-5.1) mmol/L Chloride (98-107) mmol/L Carbon Dioxide (22-32) mmol/L BUN (9-20) mg/dL Creatinine (0.66-1.25) mg/dL Estimated GFR (>60) mL/min BUN/Creatinine Ratio (6-22) Glucose (80-110) mg/dL Lactate 3.3 H (0.7-2.1) mmol/L Calcium (8.4-10.2) mg/dL Magnesium (1.6-2.3) mg/dL Total Bilirubin (0.2-1.3) mg/dL AST (17-59) IU/L ALT (<50) IU/L Alkaline Phosphatase (38-126) U/L Total Creatine Kinase (55-170) U/L CK-MB (CK-2) CK-MB (CK-2) Rel Index Troponin I (0.01-0.034) ng/mL Total Protein (6.3-8.2) g/dL Albumin (3.5-5.0) g/dL Globulin (1.7-4.1) g/dL Albumin/Globulin Ratio (1.0-2.8) Lipase (23-300) U/L Procalcitonin 1.04 H (<0.5) ng/mL Urine Color Urine Appearance Urine pH (4.5-8.0) Ur Specific [place] (1.000-1.035) Urine Protein (Negative) Urine Glucose (UA) (Negative) g/dL Urine Ketones (NEGATIVE) Urine Occult Blood (Negative) Urine Nitrate (Negative) Urine Bilirubin (NEGATIVE) Urine Urobilinogen (0.2) E.U./dL Ur Leukocyte Esterase (NEGATIVE) Urine RBC (0-5/HPF) Urine WBC (0-5/HPF) Ur Squamous Epith Cells (0-5/HPF) Urine Bacteria (None) Ur Culture Indicated? Blood Type O Positive Antibody Screen Negative 12/14/22 12/14/22 Range/Units 01:25 02:56 WBC (4.5-11.0) X10^3/uL RBC (4.5-5.9) X10^6/uL Hgb (13.5-17.5) g/dL Hct (41-53) % MCV (80-100) fL MCH (26-34) PG MCHC (30-36) % RDW (11.6-14.8) % Plt Count (150-400) X10^3/uL Neut % (Auto) (50-75) % Lymph % (Auto) (25-40) % [place] % (Auto) (3-14) % Eos % (Auto) (2-4) % Baso % (Auto) (0-2) % Neut # (Auto) (7318-5828) /uL Lymph # (Auto) (6896-3908) /uL [place] # (Auto) (0-900) /uL Eos # (Auto) (0-450) /uL Baso # (Auto) (0-100) /uL PT (10.1-12.7) SECONDS INR (0.9-1.3) APTT (26-36) SECONDS Sodium (137-145) mmol/L Potassium (3.4-5.1) mmol/L Chloride (98-107) mmol/L Carbon Dioxide (22-32) mmol/L BUN (9-20) mg/dL Creatinine (0.66-1.25) mg/dL Estimated GFR (>60) mL/min BUN/Creatinine Ratio (6-22) Glucose (80-110) mg/dL Lactate 0.8 (0.7-2.1) mmol/L Calcium (8.4-10.2) mg/dL Magnesium (1.6-2.3) mg/dL Total Bilirubin (0.2-1.3) mg/dL AST (17-59) IU/L ALT (<50) IU/L Alkaline Phosphatase (38-126) U/L Total Creatine Kinase (55-170) U/L CK-MB (CK-2) CK-MB (CK-2) Rel Index Troponin I (0.01-0.034) ng/mL Total Protein (6.3-8.2) g/dL Albumin (3.5-5.0) g/dL Globulin (1.7-4.1) g/dL Albumin/Globulin Ratio (1.0-2.8) Lipase (23-300) U/L Procalcitonin (<0.5) ng/mL Urine Color Yellow Urine Appearance Clear Urine pH 5.5 (4.5-8.0) Ur Specific [place] 1.020 (1.000-1.035) Urine Protein Negative (Negative) Urine Glucose (UA) Negative (Negative) g/dL Urine Ketones Negative (NEGATIVE) Urine Occult Blood Negative (Negative) Urine Nitrate Negative (Negative) Urine Bilirubin Negative (NEGATIVE) Urine Urobilinogen 0.2 (0.2) E.U./dL Ur Leukocyte Esterase Negative (NEGATIVE) Urine RBC 0-1/hpf (0-5/HPF) Urine WBC 0-1/hpf (0-5/HPF) Ur Squamous Epith Cells 0-1 /hpf (0-5/HPF) Urine Bacteria None seen (None) Ur Culture Indicated? Cult not indicated Blood Type Antibody Screen Urine Dip Bedside Urine Glucose Negative Bedside Urine Bilirubin - Negative Bedside Urine Ketone - Negative Urine Specific [place] 1.015 Bedside Urine Occult Blood - Negative Bedside Urine pH 6.0 Bedside Urine Protein - Negative Bedside Urine Urobilinogen - Negative Bedside Urine Nitrite - Negative Bedside Urine Leukocytes - Negative Esterase Imaging Data CT scan - abdomen/pelvis: Radiologist's Impression: PROCEDURE:? CT ABDOMEN PELVIS WO CON ? INDICATIONS:? pain vomiting right nephrostomy tube ? TECHNIQUE:? Axial sections were acquired from the lung bases to the pubic symphysis.? Coronal and sagittal reformats were performed.? For radiation dose reduction, the following was used: ?automated exposure control, adjustment of mA and/or kV according to patient size.? ? COMPARISON:? [facility], CT, CT ABDOMEN PELVIS WO CON, 10/18/2022, 16:34.? [facility], CT, CT KIDNEY URETER BLADDER (KUB), 10/29/2022, 9:07. ? FINDINGS:? Image quality:? Excellent.? ? Lung bases:? Unremarkable.? ? Heart:? No significant findings. ? URINARY: Right Kidney:? Kidney is atrophic.? No obstruction.? Nephrostomy tube is present in appropriate position. Right Ureter:? No hydroureter.? ? Left Kidney:? Kidneys atrophic.? No obstruction.? Left Ureter:? No hydroureter.? ? Bladder:? Normal wall thickness. No stones. ? ? ? ABDOMEN: Liver:? Unremarkable.? ? Gallbladder:? Unremarkable.? ? Biliary ducts:? Unremarkable.? ? Pancreas:? Unremarkable.? ? Spleen:? Spleen is enlarged. Adrenal Glands:? Unremarkable.? ? ? Stomach and Bowel:? Stomach, small bowel loops, and colon are nonobstructive.? Colonic diverticula are present without visualized inflammatory change. Peritoneum:? No abnormal intraperitoneal fluid.? No free air.? ? Ventral Wall: ? No hernia.? Abdominal Nodes:? Retroperitoneal lymph nodes are present.? Previous target lesions are as follows: ? 2.1 x 2.6 cm aortocaval lymph node series 2, image 57 compared to 1.5 x 1.7 cm ? Aortocaval lymph node series measuring 1.8 x 1.7 cm compared to 1.4 x 1.5 cm.? Scattered other additional lymph nodes overall appear more prominent.? Vessels:? Aorta and inferior vena cava are normal in size.? ? PELVIS: Pelvic Organs:? Prostate with fiducial markers are. Pelvic Nodes:? Right pelvic sidewall mass is again identified measuring 5.4 x 4.2 cm compared to 5.4 x 4.2 cm. Miscellaneous: No inguinal hernias are seen. ? ? ? Bones:? Unremarkable. ? IMPRESSION:? ? Right nephrostomy tube in appropriate position. ? Interval increase in size retroperitoneal adenopathy. ? Stable appearance right pelvic sidewall mass. ? ? ? Dictated by: Lindsey Holder M.D. on 12/14/2022 at 2:01 ? ? Approved by: Lindsey Holder M.D. on 12/14/2022 at 2:07 ? Chest x-ray: Radiologist's Impression: PROCEDURE:? XR CHEST 1V ? INDICATIONS:? chest pain ? TECHNIQUE:? One view of the chest was acquired.? ? COMPARISON:? [facility], CR, XR CHEST 1V, 06/13/2022, 8:36. ? FINDINGS:? ? Surgical changes and devices:? Pacemaker and valve replacement unchanged ? Lungs and pleura:? Lungs are clear.? No pleural effusions or pneumothorax.? ? Mediastinum:? Mediastinal contours appear normal.? Heart size is enlarged. ? Bones and chest wall:? No suspicious bony lesions.? Overlying soft tissues appear unremarkable.? ? IMPRESSION:? No acute pulmonary process. ? ? Dictated by: Lindsey Holder M.D. on 12/14/2022 at 0:16 ? ? Approved by: Lindsey Holder M.D. on 12/14/2022 at 0:16 ? ECG Data Interpretation: Sinus rhythm rate 74 DC interval 144 QRS 172 QTC 515 atrial paced rhythm similar to prior no Sgarbossa criteria MDM Narrative Medical decision making narrative: Patient 72-year-old male with multiple comorbidities including diabetes hypertension hyperlipidemia AICD paroxysmal AFib ischemic cardiomyopathy prostate cancer presenting today with decreasing oral intake fatigue nausea vomiting. He is found to have worsening creatinine 3.4 previously 2.0. According to records at [facility] creatinine at discharge on November 01 was 1.88. He is afebrile no leukocytosis, no anemia. He does have an elevated lactate at 3.3 and an elevated procalcitonin of 1.0. His urinalysis is actually clear evidence of UTI however concerning for possible ongoing infection. CT shows proper placement of the nephrostomy tube and stable masses. He is given IV fluids vancomycin and Rocephin. Lactate improves with IV fluids. Patient is not requiring anything for pain. Overall feeling better with IV fluids. At this time patient would benefit from IV antibiotics and IV fluids and close monitoring. Dr. Culp accepts patient Discharge Plan Departure Patient Disposition: Admitted as Observation Clinical Impression: Acute UTI, GLENN (acute kidney injury) Admit Date/Time: 12/14/22 03:56 Admit Provider: He Culp
[2022-12-13 23:51] LABS: Add Manual Diff / Slide Review NO; Basophils Absolute Auto 0 /uL (0-100); Basophils Percent Auto 0.3 % (0-2); Eosinophils Absolute Auto 500 /uL (0-450); Eosinophils Percent Auto 6.8 % (2-4); Hematocrit 32.8 % (41-53); Hemoglobin 11.2 g/dL (13.5-17.5); Lymphocytes Absolute Auto 600 /uL (1100-4500); Lymphocytes Percent Auto 8.8 % (25-40); Mean Corpuscular HGB Conc 34.3 % (30-36); Mean Corpuscular Hemoglobin 28.5 PG (26-34); Mean Corpuscular Volume 83.2 fL (80-100); Monocytes Absolute Auto 600 /uL (0-900); Monocytes Percent Auto 7.8 % (3-14); Neutrophils Absolute Auto 5500 /uL (1500-7000); Neutrophils Percent Auto 76.3 % (50-75); Platelet Count 122 X10^3/uL (150-400); Red Blood Cell Count 3.95 X10^6/uL (4.5-5.9); Red Cell Distribution Width 15.4 % (11.6-14.8); White Blood Cell Count 7.2 X10^3/uL (4.5-11.0)
[2022-12-13] MEDS: ASPIRIN 81 MG CHEW TAB 324 MG PO (23:52)
[2022-12-13 23:53] LABS: Alanine Aminotransferase 23 IU/L (<50); Albumin 4.1 g/dL (3.5-5.0); Albumin Globulin Ratio 1.3 (1.0-2.8); Alkaline Phosphatase 85 U/L (38-126); Aspartate Aminotransferase 23 IU/L (17-59); BUN Creatinine Ratio 12.6 (6-22); Bilirubin Total 0.4 mg/dL (0.2-1.3); Blood Urea Nitrogen 43 mg/dL (9-20); Calcium 8.4 mg/dL (8.4-10.2); Carbon Dioxide 17 mmol/L (22-32); Chloride 97 mmol/L (98-107); Creatine Kinase 51 U/L (55-170); Estimated Glomerular Filt Rate 18 mL/min (>60); Globulin 3.2 g/dL (1.7-4.1); Glucose 132 mg/dL (80-110); HEMOLYSIS < 15 (0-50); Lipase 55 U/L (23-300); Magnesium 1.8 mg/dL (1.6-2.3); Potassium 4.6 mmol/L (3.4-5.1); Sodium 128 mmol/L (137-145); Total Protein 7.3 g/dL (6.3-8.2)
[2022-12-14] VITALS (22 sets, daily range): BP systolic 92–115; BP diastolic 42–64; PULSE 60–76; RESP 16–26; TEMP 36.1–36.4; O2SAT 90–99; BMI 33.8
[2022-12-14 00:03] LABS: INR 3.7 (0.9-1.3); Prothrombin Time 43.3 SECONDS (10.1-12.7)
[2022-12-14 00:05] LABS: PTT Partial Thromboplastin Tim 56 SECONDS (26-36); Troponin I < 0.012 ng/mL (0.01-0.034)
[2022-12-14] MEDS: SODIUM CHLORIDE 0.9% 1,000 ML 1000 ML IV (00:20)
[2022-12-14 00:58] LABS: Lactate (Lactic Acid) 3.3 mmol/L (0.7-2.1)
[2022-12-14 01:15] LABS: Procalcitonin 1.04 ng/mL (<0.5)
--- NOTE | 2022-12-14 01:24 | DI.CT.S_ITS ---
PROCEDURE: CT ABDOMEN PELVIS WO CON INDICATIONS: pain vomiting right nephrostomy tube TECHNIQUE: Axial sections were acquired from the lung bases to the pubic symphysis. Coronal and sagittal reformats were performed. For radiation dose reduction, the following was used: automated exposure control, adjustment of mA and/or kV according to patient size. COMPARISON: [facility], CT, CT ABDOMEN PELVIS WO CON, 10/18/2022, 16:34. [facility], CT, CT KIDNEY URETER BLADDER (KUB), 10/29/2022, 9:07. FINDINGS: Image quality: Excellent. Lung bases: Unremarkable. Heart: No significant findings. URINARY: Right Kidney: Kidney is atrophic. No obstruction. Nephrostomy tube is present in appropriate position. Right Ureter: No hydroureter. Left Kidney: Kidneys atrophic. No obstruction. Left Ureter: No hydroureter. Bladder: Normal wall thickness. No stones. ABDOMEN: Liver: Unremarkable. Gallbladder: Unremarkable. Biliary ducts: Unremarkable. Pancreas: Unremarkable. Spleen: Spleen is enlarged. Adrenal Glands: Unremarkable. Stomach and Bowel: Stomach, small bowel loops, and colon are nonobstructive. Colonic diverticula are present without visualized inflammatory change. Peritoneum: No abnormal intraperitoneal fluid. No free air. Ventral Wall: No hernia. Abdominal Nodes: Retroperitoneal lymph nodes are present. Previous target lesions are as follows: 2.1 x 2.6 cm aortocaval lymph node series 2, image 57 compared to 1.5 x 1.7 cm Aortocaval lymph node series 2/50 measuring 1.8 x 1.7 cm compared to 1.4 x 1.5 cm. Scattered other additional lymph nodes overall appear more prominent. Vessels: Aorta and inferior vena cava are normal in size. PELVIS: Pelvic Organs: Prostate with fiducial markers are. Pelvic Nodes: Right pelvic sidewall mass is again identified measuring 5.4 x 4.2 cm compared to 5.4 x 4.2 cm. Miscellaneous: No inguinal hernias are seen. Bones: Unremarkable. IMPRESSION: Right nephrostomy tube in appropriate position. Interval increase in size retroperitoneal adenopathy. Stable appearance right pelvic sidewall mass. Dictated by: Lindsey Holder M.D. on 12/14/2022 at 2:01 Approved by: Lindsey Holder M.D. on 12/14/2022 at 2:07
[2022-12-14] MEDS: VANCOMYCIN 1,500 MG/300 ML PIGGYBACK 200 MG IV (01:44)
[2022-12-14 01:59] LABS: Appearance Urine UA CLEAR; Bilirubin Urine UA NEGATIVE (NEGATIVE); Color Urine UA YELLOW; Glucose Urine UA NEGATIVE (Negative); Ketones Urine UA NEGATIVE (NEGATIVE); Leukocyte Esterase Urine UA NEGATIVE (NEGATIVE); Nitrite Urine UA NEGATIVE (Negative); Occult Blood Urine UA NEGATIVE (Negative); Protein Urine UA NEGATIVE (Negative); Urobilinogen Urine UA 0.2 E.U./dL (0.2); pH Urine UA 5.5 (4.5-8.0)
[2022-12-14 02:06] LABS: Bacteria Urine None Seen; Culture Indicated Urine Cult Not Indicated; RBC Urine 0-1/HPF (0-5/HPF); Squamous Epithelial Cell Urine 0-1 /HPF (0-5/HPF); WBC Urine 0-1/HPF (0-5/HPF)
[2022-12-14 02:40] LABS: Reflexed Lactate in 2 Hours Y
[2022-12-14 03:21] LABS: Lactate 2HR (Lactic Acid Rflx) 0.8 mmol/L (0.7-2.1)
[2022-12-14] MEDS: cefTRIAXone 1,000 MG in SODIUM CHLORIDE 0.9% 100 ML 200 MG IV (04:06)
[2022-12-14] MEDS: LINEZOLID 600 MG/300 ML IV.SOLN IV ×2 (06:11→18:04)
--- NOTE | 2022-12-14 06:51 | P.HP_ITS ---
History of Present Illness History of Present Illness Date Patient Seen: 12/14/22 Time Patient Seen: 06:30 Chief complaint: n/V x2 Narrative: Mr. Álvarez is a 72M with PMH CAD, VTE, afib, s/p AICD, aortic stenosis s/p TAVR, Type 2 DM on insulin, prostate cancer with right hydronephrosis thought possibly secondary to enlarged lymph node, possibly from metastatic prostate cancer who presents to the hospital with nausea, vomiting for the last two days. He has a known history of prostate cancer. He has been having noted right hydronephrosis for the last few months and has been following with urology for this. Imaging showed a mass, and possible lymph nodes that caused external compression of the ureter. He eventually presented in October with severe enough symptoms that he was tranferred for right nephrostomy tube. A couple weeks ago, He was noted to have a positive urine culture with greater than 100k MRSA in his urine, and 20-30k alcaligenes species. Sensitivities were sensitive to Bactrim to both, so this was prescribed, his planned course was to be 12/07-12/17. He felt well until two days ago when he developed malaise, nausea, and vomiting. Because of this he came to the hospital. In the ED workup was done, vitals notable for afebrile, heart rate 70s, blood pressure 90s-100s/50s, sats 91% on room air. Labs reviewed by me and notable for WBC 7.2, hgb 11.2, plts 122. Na 128, cow 17, creatinine 3.41. Lactate 3.3. Procal 1.04. UA showed no WBCs, no bacteria, no nitrates. Chest xray reviewed by me and no definite opacity noted. CT abdomen and pelvis showed right neprhostomy tube in appropriate position, stable right wall mass, and no acute findings. He was ordered for antibiotics and IV fluids and admitted for further treatment. [facility] Medical History Androgen deprivation therapy Arthritis Atrial fibrillation CAD (coronary artery disease) Chronic anticoagulation Congestive heart failure Depression Diabetes DVT (deep venous thrombosis) Enlarged lymph node First degree AV block GERD (gastroesophageal reflux disease) Gout History of left heart catheterization (12/2019) History of prostate cancer History of radiation therapy History of transcatheter aortic valve replacement (TAVR) (08/01/18) Hydronephrosis, right Hypertension LAFB (left anterior fascicular block) Osteoarthritis Pacemaker Paroxysmal A-fib Prostate cancer RBBB Sleep apnea Stress incontinence Stress incontinence, male Surgical History AICD (automatic cardioverter/defibrillator) present (12/30/20) H/O aortic valve replacement History of back surgery Hx of heart artery stent Family History Mother Coronary artery disease involving bypass graft of transplanted heart Cancer Hypertension Social History marital status: number of children: 3 household members: none Previous occupational history: retired Smoking Status: Former smoker alcohol intake: current caffeine: Yes Meds Home Medications and Allergies Home Medications Medication Instructions Recorded Confirmed Type Mirapex 1 mg PO BEDTIME 09/29/20 10/22/22 History Plavix 75 mg PO QAM 09/29/20 10/02/22 History Zoloft 100 mg PO QAM 09/29/20 10/02/22 History apixaban 5 mg PO BID 09/29/20 10/02/22 History insulin lispro 100 unit/mL See Rx Instructions .Route .COMPLEX 09/29/20 10/02/22 History subcutaneous pen metformin 500 mg PO BID 09/29/20 10/02/22 History metoprolol succinate 12.5 mg PO QAM 09/29/20 10/22/22 History ibuprofen 400 mg tablet 400 mg PO PRN PRN Pain, Mild 10/23/20 10/02/22 History loperamide 2 mg tablet 2 mg PO Q6H PRN 04/22/21 10/22/22 History nystatin-triamcinolone topical applic topical 04/22/21 10/02/22 History cream acetaminophen 325 mg tablet 650 mg PO Q4H PRN pain 06/13/22 10/22/22 History atorvastatin 40 mg tablet 40 mg PO BEDTIME 06/13/22 10/22/22 History calcium carbonate 215 mg calcium 500 mg DAILY 06/13/22 10/22/22 History (500 mg) chewable tablet (Antacid (calcium carbonate)) ferrous sulfate 325 mg (65 mg 325 mg DAILY 06/13/22 10/22/22 History iron) tablet furosemide 40 mg tablet 40 mg PO DAILY 06/13/22 10/22/22 History gabapentin 100 mg tablet 100 mg PO TID 06/13/22 10/02/22 History gabapentin 300 mg tablet 600 mg PO TID 06/13/22 10/22/22 History insulin glargine 100 unit/mL 55 unit SUBCUT QPM 06/13/22 10/22/22 History subcutaneous cartridge insulin lispro 100 unit/mL 1 sliding scale dose SUBCUT 06/13/22 10/02/22 History subcutaneous cartridge USEASDIRECTD lisinopril 2.5 mg tablet 2.5 mg PO DAILY 06/13/22 10/22/22 History metoprolol succinate 25 mg 12.5 mg PO DAILY 06/13/22 10/22/22 History tablet,extended release 24 hr nystatin 100,000 unit/gram topical 1 applic topical PRN PRN Rash 06/13/22 10/02/22 History cream pantoprazole 40 mg tablet,delayed 40 mg PO DAILY 06/13/22 10/22/22 History release pramipexole 0.5 mg tablet 0.5 mg PO BEDTIME 06/13/22 10/22/22 History ropinirole 1 mg tablet 1.5 mg PO TID 06/13/22 10/02/22 History sertraline 50 mg tablet 50 mg PO DAILY 06/13/22 10/22/22 History spironolactone 25 mg tablet 25 mg PO BID 06/13/22 10/22/22 History tolterodine 4 mg capsule,extended 4 mg PO DAILY 06/13/22 10/22/22 History release 24 hr tramadol 100 mg tablet 100 mg PO Q6H PRN pain 06/13/22 10/02/22 History trazodone 50 mg tablet 75 mg PO BEDTIME 06/13/22 10/22/22 History warfarin 5 mg tablet See Rx Instructions .Route .COMPLEX 06/13/22 10/22/22 Histo ry warfarin 5 mg tablet See Rx Instructions .Route .COMPLEX 06/13/22 10/22/22 History hydroxyzine pamoate 25 mg capsule 25 mg PO BEDTIME 08/03/22 10/22/22 History (Vistaril) hydrocodone 5 mg-acetaminophen 325 2 tab PO Q6H PRN pain #30 tabs 10/18/22 10/22/22 Rx mg tablet Allergies Allergy/AdvReac Type Severity Reaction Status Date / Time crab Allergy Severe Deathly Verified 10/23/22 11:54 sick aspartame Allergy Unknown Verified 10/22/22 15:15 carbidopa Allergy Hallucinations, Verified 10/23/22 11:54 anxiety morphine AdvReac Nausea/vomi Verified 10/23/22 11:54 ting Review of Systems Review of Systems Narrative: 14 systems reviewed and negative aside from what is noted in HPI Exam Vital Signs (past 8 hours): - 12/13/22 23:30 12/13/22 23:26 12/13/22 23:26 Temperature 99.1 F Pulse Rate 78 77 Respiratory Rate 22 Blood Pressure 101/53 L 101/53 L Pulse Oximetry 91 90 L Oxygen Delivery Method Room Air Oxygen Flow Rate 12/13/22 23:30 12/13/22 23:30 12/14/22 00:00 Temperature Pulse Rate 75 Respiratory Rate Blood Pressure 100/50 L 94/55 L Pulse Oximetry 90 L Oxygen Delivery Method Oxygen Flow Rate 12/14/22 00:00 12/14/22 00:30 12/14/22 00:31 Temperature Pulse Rate 69 71 Respiratory Rate 19 20 Blood Pressure 110/56 L Pulse Oximetry 92 93 Oxygen Delivery Method Oxygen Flow Rate 12/14/22 00:31 12/14/22 01:00 12/14/22 01:00 Temperature Pulse Rate 71 65 Respiratory Rate 20 18 Blood Pressure 108/58 L Pulse Oximetry 93 Oxygen Delivery Method Oxygen Flow Rate 12/14/22 01:30 12/14/22 01:31 12/14/22 01:31 Temperature Pulse Rate 76 75 Respiratory Rate 22 22 Blood Pressure 107/63 Pulse Oximetry Oxygen Delivery Method Oxygen Flow Rate 12/14/22 01:51 12/14/22 01:51 12/14/22 02:00 Temperature Pulse Rate 67 Respiratory Rate 24 Blood Pressure 100/59 L 92/51 L Pulse Oximetry 93 Oxygen Delivery Method Oxygen Flow Rate 12/14/22 02:00 12/14/22 02:30 12/14/22 02:51 Temperature Pulse Rate 62 61 63 Respiratory Rate 20 21 26 H Blood Pressure Pulse Oximetry 92 90 L 97 Oxygen Delivery Method Oxygen Flow Rate 12/14/22 02:51 12/14/22 03:00 12/14/22 03:01 Temperature Pulse Rate 61 Respiratory Rate 22 Blood Pressure 96/55 L 98/53 L Pulse Oximetry 92 Oxygen Delivery Method Oxygen Flow Rate 12/14/22 03:01 12/14/22 03:30 12/14/22 03:34 Temperature Pulse Rate 62 63 61 Respiratory Rate 24 26 H 19 Blood Pressure Pulse Oximetry 96 95 96 Oxygen Delivery Method Oxygen Flow Rate 12/14/22 03:34 12/14/22 04:00 12/14/22 04:00 Temperature Pulse Rate 60 Respiratory Rate 20 Blood Pressure 104/48 L 107/54 L Pulse Oximetry 93 Oxygen Delivery Method Oxygen Flow Rate 12/14/22 04:30 12/14/22 05:00 Temperature 97.6 F Pulse Rate 60 63 Respiratory Rate 19 19 Blood Pressure 115/54 L Pulse Oximetry 92 96 Oxygen Delivery Method Oxygen Flow Rate 0 Oxygen Delivery Method Room Air Oxygen Flow Rate 0 Narrative Exam Narrative: GEN: no acute distress CV: regular rate and rhythm, no murmurs PULM: clear bilaterally, no wheezes, rhonchi, rales ABD: soft, nontender, nondistended BACK: Right sided nephrostomy tube draining clear yellow liquid, with mild erythema surrounding nephrostomy tube EXT: warm and well perfused, no edema NEURO: awake, alert, oriented, no focal deficits Objective Labs 12/13/22 23:15 12/13/22 23:15 Labs: Laboratory Results - last 24 hr 12/13/22 12/13/22 12/13/22 23:15 23:15 23:15 WBC 7.2 RBC 3.95 L Hgb 11.2 L Hct 32.8 L MCV 83.2 MCH 28.5 MCHC 34.3 RDW 15.4 H Plt Count 122 L Neut % (Auto) 76.3 H Lymph % (Auto) 8.8 L [place] % (Auto) 7.8 Eos % (Auto) 6.8 H Baso % (Auto) 0.3 Neut # (Auto) 5500 Lymph # (Auto) 600 L [place] # (Auto) 600 Eos # (Auto) 500 H Baso # (Auto) 0 PT 43.3 H INR 3.7 H APTT 56 H Sodium 128 L Potassium 4.6 Chloride 97 L Carbon Dioxide 17 L BUN 43 H Creatinine 3.41 H Estimated GFR 18 L BUN/Creatinine Ratio 12.6 Glucose 132 H Lactate Calcium 8.4 Magnesium 1.8 Total Bilirubin 0.4 AST 23 ALT 23 Alkaline Phosphatase 85 Total Creatine Kinase 51 L CK-MB (CK-2) TNP CK-MB (CK-2) Rel Index TNP Troponin I < 0.012 Total Protein 7.3 Albumin 4.1 Globulin 3.2 Albumin/Globulin Ratio 1.3 Lipase 55 Procalcitonin Urine Color Urine Appearance Urine pH Ur Specific [place] Urine Protein Urine Glucose (UA) Urine Ketones Urine Occult Blood Urine Nitrate Urine Bilirubin Urine Urobilinogen Ur Leukocyte Esterase Urine RBC Urine WBC Ur Squamous Epith Cells Urine Bacteria Ur Culture Indicated? Blood Type Antibody Screen 12/13/22 12/13/22 12/14/22 23:15 23:15 00:14 WBC RBC Hgb Hct MCV MCH MCHC RDW Plt Count Neut % (Auto) Lymph % (Auto) [place] % (Auto) Eos % (Auto) Baso % (Auto) Neut # (Auto) Lymph # (Auto) [place] # (Auto) Eos # (Auto) Baso # (Auto) PT INR APTT Sodium Potassium Chloride Carbon Dioxide BUN Creatinine Estimated GFR BUN/Creatinine Ratio Glucose Lactate 3.3 H Calcium Magnesium Total Bilirubin AST ALT Alkaline Phosphatase Total Creatine Kinase CK-MB (CK-2) CK-MB (CK-2) Rel Index Troponin I Total Protein Albumin Globulin Albumin/Globulin Ratio Lipase Procalcitonin 1.04 H Urine Color Urine Appearance Urine pH Ur Specific [place] Urine Protein Urine Glucose (UA) Urine Ketones Urine Occult Blood Urine Nitrate Urine Bilirubin Urine Urobilinogen Ur Leukocyte Esterase Urine RBC Urine WBC Ur Squamous Epith Cells Urine Bacteria Ur Culture Indicated? Blood Type O Positive Antibody Screen Negative 12/14/22 12/14/22 01:25 02:56 WBC RBC Hgb Hct MCV MCH MCHC RDW Plt Count Neut % (Auto) Lymph % (Auto) [place] % (Auto) Eos % (Auto) Baso % (Auto) Neut # (Auto) Lymph # (Auto) [place] # (Auto) Eos # (Auto) Baso # (Auto) PT INR APTT Sodium Potassium Chloride Carbon Dioxide BUN Creatinine Estimated GFR BUN/Creatinine Ratio Glucose Lactate 0.8 Calcium Magnesium Total Bilirubin AST ALT Alkaline Phosphatase Total Creatine Kinase CK-MB (CK-2) CK-MB (CK-2) Rel Index Troponin I Total Protein Albumin Globulin Albumin/Globulin Ratio Lipase Procalcitonin Urine Color Yellow Urine Appearance Clear Urine pH 5.5 Ur Specific [place] 1.020 Urine Protein Negative Urine Glucose (UA) Negative Urine Ketones Negative Urine Occult Blood Negative Urine Nitrate Negative Urine Bilirubin Negative Urine Urobilinogen 0.2 Ur Leukocyte Esterase Negative Urine RBC 0-1/hpf Urine WBC 0-1/hpf Ur Squamous Epith Cells 0-1 /hpf Urine Bacteria None seen Ur Culture Indicated? Cult not indicated Blood Type Antibody Screen Assessment & Plan Assessment & Plan narrative: 1. Suspected urinary infection complicated by nephrostomy tube -patient presents with elevated lactate >3, procal >1, and symptoms of nausea and vomiting -he has nephrostomy tube in place and is urinating as well -CT abdomen showed no definitive source of infection, chest xray with no definitive source of infection -UA sent in the ED showed no infectious markers -unclear to me where UA was taken, because of this will send clean catch sample and nephrostomy tube sample -patient improved with IV fluids, with lactate now normal -for now my suspicion is that patient has a UTI that is now fully treated by bactrim -his last UTI showed MRSA and alcaligenes species -because of this will plan for treatment with vancomycin and ceftriaxone -follow up cultures 2. GLENN on CKD stage 3 -baseline creatinine is not clear, but appears to be around 2 -creatinine on admit 3.4 -careful with nephrotoxic agents -suspect secondary to hypovolemia, suspect will improve with IV fluids -initial co2 of 17, acidosis likely secondary to renal failure and possibly elevated lactate 3. Hypovolemic hyponatremia -initial sodium of 128 -IV fluid as above -recheck sodium in AM 4. History of PE, afib -continue warfarin once dose reconciled 5. Type 2 DM on insulin -home dose insulin is 55U daily -for now order for 45U daily as appetite is poor -insulin sliding scale ordered -hold metformin 6. CAD s/p stents -hold plavix, spironolactone, lisinopril, metoprolol for now given glenn and borderline hypotension 7. Depression, possible restless leg syndrome -multiple meds noted on incomplete MAR including mirapex, tolterodine, zoloft, ropinirole, pramipexole -await final med rec before continuing these medications -careful about serotonin interactions with linezolid, may need to change medications if this is an issue I have obtained history from patient and medical records. I have discussed plan of care with ED physician and bedside nurse. I have reviewed labs, imaging. CODE: DNR Proxy: Ximena Nice, daughter [facility] Meds 'Current medications' to include all prescriptions, [id number] products, herbals, cannabis/cannabidiol products, and vitamin/mineral/dietary (nutritional) supplements. I have utilized all available resources to obtain, update, or review the patient?s current medications. [If Yes, STOP here]: Yes
[2022-12-14] MEDS: INSULIN GLARGINE 100 UNIT/ML 3ML PEN 45 UNIT SUBCUT (08:31)
[2022-12-14] MEDS: HEPARIN 5,000 UNIT/ML VIAL 5000 UNIT SUBCUT (08:33)
[2022-12-14] MEDS: ONDANSETRON 4 MG/2 ML INJ IV (08:35)
[2022-12-14 09:07] LABS: Hematocrit 29.9 % (41-53); Hemoglobin 10.1 g/dL (13.5-17.5); Mean Corpuscular HGB Conc 33.9 % (30-36); Mean Corpuscular Hemoglobin 28.6 PG (26-34); Mean Corpuscular Volume 84.4 fL (80-100); Platelet Count 98 X10^3/uL (150-400); Red Blood Cell Count 3.54 X10^6/uL (4.5-5.9); Red Cell Distribution Width 15.5 % (11.6-14.8); White Blood Cell Count 5.1 X10^3/uL (4.5-11.0)
[2022-12-14 10:53] LABS: Appearance Urine UA CLEAR; Bilirubin Urine UA NEGATIVE (NEGATIVE); Color Urine UA YELLOW; Glucose Urine UA NEGATIVE (Negative); Ketones Urine UA NEGATIVE (NEGATIVE); Leukocyte Esterase Urine UA 2+ (NEGATIVE); Nitrite Urine UA POSITIVE (Negative); Occult Blood Urine UA 3+ (Negative); Protein Urine UA 1+ (Negative); Specific Gravity Urine UA <=1.005 (1.000-1.035); Urobilinogen Urine UA 0.2 E.U./dL (0.2)
[2022-12-14 11:02] LABS: Bacteria Urine Moderate (10-30); Culture Indicated Urine Specimen Cultured; RBC Urine 5-10/HPF (0-5/HPF); Squamous Epithelial Cell Urine None Seen (0-5/HPF); WBC Urine 10-30/HPF (0-5/HPF)
[2022-12-14 11:07] LABS: Appearance Urine UA CLEAR; Bilirubin Urine UA NEGATIVE (NEGATIVE); Color Urine UA YELLOW; Glucose Urine UA NEGATIVE (Negative); Ketones Urine UA NEGATIVE (NEGATIVE); Leukocyte Esterase Urine UA NEGATIVE (NEGATIVE); Nitrite Urine UA NEGATIVE (Negative); Occult Blood Urine UA NEGATIVE (Negative); Protein Urine UA NEGATIVE (Negative); Urobilinogen Urine UA 0.2 E.U./dL (0.2)
[2022-12-14 11:15] LABS: Bacteria Urine None Seen; Culture Indicated Urine Cult Not Indicated; RBC Urine 0-1/HPF (0-5/HPF); Squamous Epithelial Cell Urine 0-1 /HPF (0-5/HPF); WBC Urine 0-1/HPF (0-5/HPF)
--- NOTE | 2022-12-14 11:29 | P.PN_ITS ---
Subjective Subjective Interval history: Patient just admitted a few hours ago: Mr. Álvarez is a 72M with PMH CAD, VTE, afib, s/p AICD, aortic stenosis s/p TAVR, Type 2 DM on insulin, prostate cancer with right hydronephrosis thought possibly secondary to enlarged lymph node, possibly from metastatic prostate cancer who presents to the hospital with nausea, vomiting for the last two days. He has a known history of prostate cancer. He has been having noted right hydronephrosis for the last few months and has been following with urology for this. Imaging showed a mass, and possible lymph nodes that caused external compression of the ureter. He eventually presented in October with severe enough symptoms that he was tranferred for right nephrostomy tube. A couple weeks ago, He was noted to have a positive urine culture with greater than 100k MRSA in his urine, and 20-30k alcaligenes species. Sensitivities were sensitive to Bactrim to both, so this was prescribed, his planned course was to be 12/07-12/17. He felt well until two days ago when he developed malaise, nausea, and vomiting. Because of this he came to the hospital. Main complaint now is pain and the patient was just initiated on his regular pain medication which include hydrocodone, gabapentin and acetaminophen. Low- dose Dilaudid intravenously has also been made available as needed. Exam Vital Signs (past 8 hours): - 12/14/22 03:30 12/14/22 03:34 12/14/22 03:34 Temperature Pulse Rate 63 61 Respiratory Rate 26 H 19 Blood Pressure 104/48 L Pulse Oximetry 95 96 Oxygen Flow Rate 12/14/22 04:00 12/14/22 04:00 12/14/22 04:30 Temperature Pulse Rate 60 60 Respiratory Rate 20 19 Blood Pressure 107/54 L Pulse Oximetry 93 92 Oxygen Flow Rate 12/14/22 05:00 Temperature 97.6 F Pulse Rate 63 Respiratory Rate 19 Blood Pressure 115/54 L Pulse Oximetry 96 Oxygen Flow Rate 0 Oxygen Delivery Method Room Air Oxygen Flow Rate 0 Narrative Exam Narrative: GEN: no acute distress CV: regular rate and rhythm, no murmurs PULM: clear bilaterally, no wheezes, rhonchi, rales ABD: soft, nontender, nondistended BACK: Right sided nephrostomy tube draining clear yellow liquid, with mild erythema surrounding nephrostomy tube EXT: warm and well perfused, no edema NEURO: awake, alert, oriented, no focal deficits Objective Labs 12/14/22 08:35 12/13/22 23:15 Labs: Laboratory Results - last 24 hr 12/13/22 12/13/22 12/13/22 23:15 23:15 23:15 WBC 7.2 RBC 3.95 L Hgb 11.2 L Hct 32.8 L MCV 83.2 MCH 28.5 MCHC 34.3 RDW 15.4 H Plt Count 122 L Neut % (Auto) 76.3 H Lymph % (Auto) 8.8 L [place] % (Auto) 7.8 Eos % (Auto) 6.8 H Baso % (Auto) 0.3 Neut # (Auto) 5500 Lymph # (Auto) 600 L [place] # (Auto) 600 Eos # (Auto) 500 H Baso # (Auto) 0 PT 43.3 H INR 3.7 H APTT 56 H Sodium 128 L Potassium 4.6 Chloride 97 L Carbon Dioxide 17 L BUN 43 H Creatinine 3.41 H Estimated GFR 18 L BUN/Creatinine Ratio 12.6 Glucose 132 H Lactate Calcium 8.4 Magnesium 1.8 Total Bilirubin 0.4 AST 23 ALT 23 Alkaline Phosphatase 85 Total Creatine Kinase 51 L CK-MB (CK-2) TNP CK-MB (CK-2) Rel Index TNP Troponin I < 0.012 Total Protein 7.3 Albumin 4.1 Globulin 3.2 Albumin/Globulin Ratio 1.3 Lipase 55 Procalcitonin Urine Color Urine Appearance Urine pH Ur Specific [place] Urine Protein Urine Glucose (UA) Urine Ketones Urine Occult Blood Urine Nitrate Urine Bilirubin Urine Urobilinogen Ur Leukocyte Esterase Urine RBC Urine WBC Ur Squamous Epith Cells Urine Bacteria Ur Culture Indicated? Blood Type Antibody Screen 12/13/22 12/13/22 12/14/22 23:15 23:15 00:14 WBC RBC Hgb Hct MCV MCH MCHC RDW Plt Count Neut % (Auto) Lymph % (Auto) [place] % (Auto) Eos % (Auto) Baso % (Auto) Neut # (Auto) Lymph # (Auto) [place] # (Auto) Eos # (Auto) Baso # (Auto) PT INR APTT Sodium Potassium Chloride Carbon Dioxide BUN Creatinine Estimated GFR BUN/Creatinine Ratio Glucose Lactate 3.3 H Calcium Magnesium Total Bilirubin AST ALT Alkaline Phosphatase Total Creatine Kinase CK-MB (CK-2) CK-MB (CK-2) Rel Index Troponin I Total Protein Albumin Globulin Albumin/Globulin Ratio Lipase Procalcitonin 1.04 H Urine Color Urine Appearance Urine pH Ur Specific [place] Urine Protein Urine Glucose (UA) Urine Ketones Urine Occult Blood Urine Nitrate Urine Bilirubin Urine Urobilinogen Ur Leukocyte Esterase Urine RBC Urine WBC Ur Squamous Epith Cells Urine Bacteria Ur Culture Indicated? Blood Type O Positive Antibody Screen Negative 12/14/22 12/14/22 12/14/22 01:25 02:56 08:35 WBC 5.1 RBC 3.54 L Hgb 10.1 L Hct 29.9 L MCV 84.4 MCH 28.6 MCHC 33.9 RDW 15.5 H Plt Count 98 L Neut % (Auto) Lymph % (Auto) [place] % (Auto) Eos % (Auto) Baso % (Auto) Neut # (Auto) Lymph # (Auto) [place] # (Auto) Eos # (Auto) Baso # (Auto) PT INR APTT Sodium Potassium Chloride Carbon Dioxide BUN Creatinine Estimated GFR BUN/Creatinine Ratio Glucose Lactate 0.8 Calcium Magnesium Total Bilirubin AST ALT Alkaline Phosphatase Total Creatine Kinase CK-MB (CK-2) CK-MB (CK-2) Rel Index Troponin I Total Protein Albumin Globulin Albumin/Globulin Ratio Lipase Procalcitonin Urine Color Yellow Urine Appearance Clear Urine pH 5.5 Ur Specific [place] 1.020 Urine Protein Negative Urine Glucose (UA) Negative Urine Ketones Negative Urine Occult Blood Negative Urine Nitrate Negative Urine Bilirubin Negative Urine Urobilinogen 0.2 Ur Leukocyte Esterase Negative Urine RBC 0-1/hpf Urine WBC 0-1/hpf Ur Squamous Epith Cells 0-1 /hpf Urine Bacteria None seen Ur Culture Indicated? Cult not indicated Blood Type Antibody Screen 12/14/22 12/14/22 10:30 11:05 WBC RBC Hgb Hct MCV MCH MCHC RDW Plt Count Neut % (Auto) Lymph % (Auto) [place] % (Auto) Eos % (Auto) Baso % (Auto) Neut # (Auto) Lymph # (Auto) [place] # (Auto) Eos # (Auto) Baso # (Auto) PT INR APTT Sodium Potassium Chloride Carbon Dioxide BUN Creatinine Estimated GFR BUN/Creatinine Ratio Glucose Lactate Calcium Magnesium Total Bilirubin AST ALT Alkaline Phosphatase Total Creatine Kinase CK-MB (CK-2) CK-MB (CK-2) Rel Index Troponin I Total Protein Albumin Globulin Albumin/Globulin Ratio Lipase Procalcitonin Urine Color Yellow Yellow Urine Appearance Clear Clear Urine pH 7.0 6.0 Ur Specific [place] <=1.005 1.010 Urine Protein 1+ H Negative Urine Glucose (UA) Negative Negative Urine Ketones Negative Negative Urine Occult Blood 3+ H Negative Urine Nitrate Positive H Negative Urine Bilirubin Negative Negative Urine Urobilinogen 0.2 0.2 Ur Leukocyte Esterase 2+ H Negative Urine RBC 5-10/hpf H 0-1/hpf Urine WBC 10-30/hpf H D 0-1/hpf D Ur Squamous Epith Cells None seen 0-1 /hpf Urine Bacteria Moderate (10-30) H None seen Ur Culture Indicated? Specimen cultured Cult not indicated Blood Type Antibody Screen PFSH Medical History Androgen deprivation therapy Arthritis Atrial fibrillation CAD (coronary artery disease) Chronic anticoagulation Congestive heart failure Depression Diabetes DVT (deep venous thrombosis) Enlarged lymph node First degree AV block GERD (gastroesophageal reflux disease) Gout History of left heart catheterization (12/2019) History of prostate cancer History of radiation therapy History of transcatheter aortic valve replacement (TAVR) (08/01/18) Hydronephrosis, right Hypertension LAFB (left anterior fascicular block) Osteoarthritis Pacemaker Paroxysmal A-fib Prostate cancer RBBB Sleep apnea Stress incontinence Stress incontinence, male Surgical History AICD (automatic cardioverter/defibrillator) present (12/30/20) H/O aortic valve replacement History of back surgery Hx of heart artery stent Family History Mother Coronary artery disease involving bypass graft of transplanted heart Cancer Hypertension Social History marital status: number of children: 3 household members: none Previous occupational history: retired Smoking Status: Former smoker alcohol intake: current caffeine: Yes Assessment & Plan Assessment & Plan narrative: 1. Suspected urinary infection complicated by nephrostomy tube -patient presented with elevated lactate >3, procal >1, and symptoms of nausea and vomiting -he had nephrostomy tube in place and was urinating as well -CT abdomen showed no definitive source of infection, chest xray with no definitive source of infection -UA sent in the ED showed no infectious markers -unclear where UA was taken, because of this sent a new clean catch sample and nephrostomy tube sample -patient improved with IV fluids, with lactate is now normal also -his last UTI showed MRSA and alcaligenes species -because of this will plan for treatment with vancomycin and ceftriaxone -follow up cultures 2. GLENN on CKD stage 3 -baseline creatinine is not clear, but appears to be around 2 -creatinine on admit 3.4 -careful with nephrotoxic agents -suspect secondary to hypovolemia, suspect will improve with IV fluids -initial co2 of 17, acidosis likely secondary to renal failure and possibly elevated lactate 3. Hypovolemic hyponatremia -initial sodium of 128 -IV fluid as above -recheck sodium in AM-remains pending today 4. History of PE, afib -INR elevated therefore warfarin has been held. Patient on subQ heparin. Follow INR in the morning December 15 5. Type 2 DM on insulin -home dose insulin is 55U daily -for now order for 45U daily as appetite is poor -insulin sliding scale ordered -hold metformin 6. CAD s/p stents -hold plavix, spironolactone, lisinopril, metoprolol for now given glenn and borderline hypotension 7. Depression, possible restless leg syndrome -multiple meds noted on incomplete MAR including mirapex, tolterodine, zoloft, ropinirole, pramipexole -await final med rec before continuing these medications -careful about serotonin interactions with linezolid, may need to change medications if this is an issue CODE: DNR Proxy: ArletXimena, daughter
[2022-12-14] MEDS: HYDROCODONE/ACET 5/325 TABLET 2 TAB PO ×2 (11:36→20:20)
--- NOTE | 2022-12-14 11:38 | CM.DANOTE ---
Addendum entered by JAYLEN Damon 12/14/22 12:08: DCP Continued: Patient asked for star ratings for the SNF placement options. SUPERVISOR LIQUEFACTION provided with paper. Patient reports verbal understanding that he may not need a SNF and may return to [facility] on D/c. DAVIN Original Note: DCP Assessment: Patient is a 72yo Male here for an acute kidney injury/UTI. He currently has prostate cancer and type 2 diabetes. PCP: Vandana Resendiz Payer: [facility] and medicaid SUPERVISOR LIQUEFACTION reviewed EMR. From rounds, patient will need to have a urine sample retaken for further information on patient's treatment. SUPERVISOR LIQUEFACTION entered room and introduced self and role. Patient was resting in bed and appeared A/Ox4, and was perfectly pleasant and chatty, but reports to be in a lot of pain at this time. Patient lives at [facility] and reports feeling safe and cared for there. His daughter and emergency contact, Arlet ([phone]) lives in [place]. Patient reports utilizing a FWW at baseline. He has been needing more and more assistance from [facility] due to decline in health from prostate cancer. Patient does not drive at this time. Patient has been to [facility] before and is open to it if needed. SUPERVISOR LIQUEFACTION explained that a SNF may not be appropriate at this time, patient appeared to accept this. Patient is open to alternative SNF placement as well if needed. Plan: d/c back to [facility] when medically stable. transport with [facility]. CM team will continue to follow closely for needs. JAYLEN Damon Discharge Planning/Care Management CM Discharge Assessment Start: 12/14/22 11:34 Freq: Status: Active Protocol: Document 12/14/22 11:34 DAVIN (Rec: 12/14/22 11:38 [id number]) Discharge Planning Assessment Assigned [employer] Plant Supervisor JAYLEN Robledo DPOA/Assigned Designee Name Arlet Bueno (daughter) Contact Information [phone] Advance Directives? Yes: POLST Advance Directives on File Yes History Provided By Patient,Medical Record Prior Living Arrangements Assisted Living Comment [facility] Household Members none Type of transporation used prior to Relies on Others admit Facility Name Admitted From: Other Willing to Return to Facility? Yes Independent with ADL's No Is patient alert and oriented? Yes Needs Assistance With Meal Prep,Managing Medications ,Home Chores / Shopping Comment [facility] has neeeded to asssist more and more due to progression of pancreatic cancer Caregiver for Another No DME Already Rented / Owned FWW / Walker,Cane Comment is open to SNF if necessary, preference [facility] Barriers to Discharge No Comment Back to [facility] when medically cleared Discharge Plan Assisted Living Facility Transportation Arrangement [facility] transport at d/c Referrals Initiated None needed Additional Comment At this time SNF/HH Preference patient prefers [facility] if needed. open to other options if needed Whiteboard Updated in Patient Room with Yes name and ext. # of Natural [employer] Plant Supervisor Review Status In Process Next Review Type Continued Stay Review
[2022-12-14 12:05] LABS: BUN Creatinine Ratio 13.4 (6-22); Blood Urea Nitrogen 45 mg/dL (9-20); Calcium 8.2 mg/dL (8.4-10.2); Carbon Dioxide 20 mmol/L (22-32); Chloride 98 mmol/L (98-107); Estimated Glomerular Filt Rate 19 mL/min (>60); Glucose 140 mg/dL (80-110); HEMOLYSIS < 15 (0-50); Potassium 4.6 mmol/L (3.4-5.1); Prothrombin Time 54.1 SECONDS (10.1-12.7); Sodium 129 mmol/L (137-145)
[2022-12-14 12:20] LABS: INR 4.6 (0.9-1.3)
[2022-12-14] MEDS: PANTOPRAZOLE DR 40 MG TABLET PO (12:23)
[2022-12-14] MEDS: METOPROLOL ER 25 MG TABLET 12.5 MG PO (12:23)
[2022-12-14] MEDS: HYDROMORPHONE 0.5 MG INJ IV (12:23)
[2022-12-14] MEDS: GABAPENTIN 600 MG TABLET PO ×2 (12:24→20:19)
[2022-12-14] MEDS: ROPINIROLE 1 MG TABLET 1.5 MG PO ×2 (12:24→16:07)
[2022-12-14] MEDS: FERROUS SULFATE 325 MG TABLET PO (12:25)
[2022-12-14] MEDS: PRAMIPEXOLE 0.25 MG TABLET 0.5 MG PO (12:25)
[2022-12-14] MEDS: SERTRALINE 50 MG TABLET PO (12:25)
[2022-12-14] MEDS: BICALUTAMIDE 50 MG TABLET PO (14:00)
[2022-12-14] MEDS: ATORVASTATIN 20 MG TABLET 40 MG PO (20:19)
[2022-12-14] MEDS: ROPINIROLE 1 MG TABLET 2 MG PO (20:19)
[2022-12-15 02:00] VITALS: BP 102/47; PULSE 58; RESP 18; TEMP 35.9; O2SAT 97
[2022-12-15] MEDS: cefTRIAXone 1,000 MG in SODIUM CHLORIDE 0.9% 100 ML 200 MG IV (04:16)
[2022-12-15] MEDS: LINEZOLID 600 MG/300 ML IV.SOLN IV ×2 (05:00→18:22)
[2022-12-15 05:41] LABS: Add Manual Diff / Slide Review NO; Basophils Absolute Auto 0 /uL (0-100); Basophils Percent Auto 0.3 % (0-2); Eosinophils Absolute Auto 500 /uL (0-450); Eosinophils Percent Auto 10.8 % (2-4); Hematocrit 28.7 % (41-53); Hemoglobin 9.8 g/dL (13.5-17.5); Lymphocytes Absolute Auto 700 /uL (1100-4500); Lymphocytes Percent Auto 15.7 % (25-40); Mean Corpuscular HGB Conc 34.3 % (30-36); Mean Corpuscular Hemoglobin 28.9 PG (26-34); Mean Corpuscular Volume 84.4 fL (80-100); Monocytes Absolute Auto 500 /uL (0-900); Monocytes Percent Auto 10.5 % (3-14); Neutrophils Absolute Auto 2800 /uL (1500-7000); Neutrophils Percent Auto 62.7 % (50-75); Platelet Count 87 X10^3/uL (150-400); Red Cell Distribution Width 15.2 % (11.6-14.8); White Blood Cell Count 4.5 X10^3/uL (4.5-11.0)
[2022-12-15 05:46] LABS: Prothrombin Time 53.5 SECONDS (10.1-12.7)
[2022-12-15 05:49] LABS: BUN Creatinine Ratio 14.1 (6-22); Blood Urea Nitrogen 40 mg/dL (9-20); Calcium 7.9 mg/dL (8.4-10.2); Carbon Dioxide 20 mmol/L (22-32); Chloride 102 mmol/L (98-107); Estimated Glomerular Filt Rate 23 mL/min (>60); Glucose 133 mg/dL (80-110); HEMOLYSIS < 15 (0-50); Potassium 4.2 mmol/L (3.4-5.1); Sodium 131 mmol/L (137-145)
[2022-12-15 06:30] LABS: INR 4.6 (0.9-1.3)
[2022-12-15] MEDS: FUROSEMIDE 40 MG TABLET PO (08:13)
[2022-12-15 08:14] VITALS: BP 102/46
[2022-12-15] MEDS: PRAMIPEXOLE 0.25 MG TABLET 0.5 MG PO (08:14)
[2022-12-15] MEDS: METOPROLOL ER 25 MG TABLET 12.5 MG PO (08:14)
[2022-12-15] MEDS: GABAPENTIN 600 MG TABLET PO ×2 (08:14→21:59)
[2022-12-15] MEDS: OXYBUTYNIN 5 MG ER TAB 10 MG PO (08:14)
[2022-12-15] MEDS: FERROUS SULFATE 325 MG TABLET PO (08:15)
[2022-12-15] MEDS: PANTOPRAZOLE DR 40 MG TABLET PO (08:15)
[2022-12-15] MEDS: BICALUTAMIDE 50 MG TABLET PO (08:15)
[2022-12-15] MEDS: ROPINIROLE 1 MG TABLET 1.5 MG PO ×2 (09:36→15:21)
[2022-12-15 12:00] VITALS: BP 116/60; PULSE 60; RESP 17; TEMP 35.8; O2SAT 95
--- NOTE | 2022-12-15 12:26 | P.PN_ITS ---
Subjective Subjective Interval history: Mr. Álvarez is a 72M with PMH CAD, VTE, afib, s/p AICD, aortic stenosis s/p TAVR, Type 2 DM on insulin, prostate cancer with right hydronephrosis thought possibly secondary to enlarged lymph node, possibly from metastatic prostate cancer who presents to the hospital with nausea, vomiting likely due to complicated UTI. Recent cultures with MRSA, current urine cultures with gram positive cocci. Exam Vital Signs (past 8 hours): - 12/15/22 08:14 Blood Pressure 102/46 L Oxygen Delivery Method Room Air Oxygen Flow Rate 0 Narrative Exam Narrative: GEN: no acute distress CV: regular rate and rhythm, no murmurs PULM: clear bilaterally, no wheezes, rhonchi, rales ABD: soft, nontender, nondistended BACK: Right sided nephrostomy tube draining clear yellow liquid, with mild erythema surrounding nephrostomy tube EXT: warm and well perfused, no edema NEURO: awake, alert, oriented, no focal deficits Objective Labs 12/15/22 05:25 12/15/22 05:25 Labs: Laboratory Results - last 24 hr 12/15/22 12/15/22 12/15/22 05:25 05:25 05:25 WBC 4.5 RBC 3.40 L Hgb 9.8 L Hct 28.7 L MCV 84.4 MCH 28.9 MCHC 34.3 RDW 15.2 H Plt Count 87 L Neut % (Auto) 62.7 Lymph % (Auto) 15.7 L Benson % (Auto) 10.5 Eos % (Auto) 10.8 H Baso % (Auto) 0.3 Neut # (Auto) 2800 Lymph # (Auto) 700 L Benson # (Auto) 500 Eos # (Auto) 500 H Baso # (Auto) 0 PT 53.5 H INR 4.6 H* Sodium 131 L Potassium 4.2 Chloride 102 Carbon Dioxide 20 L BUN 40 H Creatinine 2.83 H Estimated GFR 23 L BUN/Creatinine Ratio 14.1 Glucose 133 H Calcium 7.9 L PFSH Medical History Androgen deprivation therapy Arthritis Atrial fibrillation CAD (coronary artery disease) Chronic anticoagulation Congestive heart failure Depression Diabetes DVT (deep venous thrombosis) Enlarged lymph node First degree AV block GERD (gastroesophageal reflux disease) Gout History of left heart catheterization (12/2019) History of prostate cancer History of radiation therapy History of transcatheter aortic valve replacement (TAVR) (08/01/18) Hydronephrosis, right Hypertension LAFB (left anterior fascicular block) Osteoarthritis Pacemaker Paroxysmal A-fib Prostate cancer RBBB Sleep apnea Stress incontinence Stress incontinence, male Surgical History AICD (automatic cardioverter/defibrillator) present (12/30/20) H/O aortic valve replacement History of back surgery Hx of heart artery stent Family History Mother Coronary artery disease involving bypass graft of transplanted heart Cancer Hypertension Social History marital status: number of children: 3 household members: none Previous occupational history: retired Smoking Status: Former smoker alcohol intake: current caffeine: Yes Assessment & Plan Assessment & Plan narrative: 1. Sepsis secondary to Suspected urinary infection complicated by nephrostomy tube with GLENN, thrombocytopenia -urine cultures with gram positive cocci, suspect MRSA - continue ceftriaxone and linezolid pending cultures. 2. GLENN on CKD stage 3 -baseline creatinine is not clear, but appears to be around 2 -creatinine on admit 3.4 but improving today -careful with nephrotoxic agents -suspect secondary to hypovolemia, suspect will improve with IV fluids -initial co2 of 17, acidosis likely secondary to renal failure with UTI and nephrostomy tube. Improved today. 3. Hypovolemic hyponatremia -initial sodium of 128, now 131. -IV fluid as above 4. History of PE, afib -INR elevated therefore warfarin has been held. Follow INR. dosing per pharmacy. 5. Type 2 DM on insulin -home dose insulin is 55U daily -for now ordered for 45U daily as appetite is poor, and with GLENN. glucose 133 this AM -insulin sliding scale ordered -hold metformin 6. CAD s/p stents -hold plavix, spironolactone, lisinopril, metoprolol for now given glenn and borderline hypotension 7. Depression, possible restless leg syndrome -multiple meds noted on incomplete MAR including mirapex, tolterodine, zoloft, ropinirole, pramipexole -await final med rec before continuing these medications -careful about serotonin interactions with linezolid, may need to change medications if this is an issue CODE: DNR Proxy: Ximena Nice, daughter Discussed with case management staff. Reviewed current documentation, discussed with previous hospitalist on duty. Dispo: probably home, pending cultures.
--- NOTE | 2022-12-15 13:42 | CM.DPC ---
DCP Continued: DRAGLINE OPERATOR HELPER reviewed EMR. From provider, patient is likely to d/c back to [facility] tomorrow pending the results of his urine sample and pending having proper po antibiotics for patient. DRAGLINE OPERATOR HELPER called and left 2 LVMs with [facility], one with nursing and one with resident care management. DRAGLINE OPERATOR HELPER spoke with Ina in nursing ([phone] ext [phone]) from [facility]. DRAGLINE OPERATOR HELPER told Ina patient will likely be ready to d/c tomorrow. Ina reported verbal understanding. DRAGLINE OPERATOR HELPER entered room and reintroduced self and role. Patient was resting in bed watching a video and appeared A/Ox4. Patient reports provider told him he can d/c tomorrow if they get the right meds situated. DRAGLINE OPERATOR HELPER informed patient that Ina at [facility] was made aware. Patient had questions regarding transportation, which DRAGLINE OPERATOR HELPER confirmed facility normally provides upon d/c. Patient appeared grateful for this information. Plan: d/c back to [facility] on oral meds likely tomorrow, 628.23. [facility] aware. Transport with facility vehicle (confirm transportation tomorrow). CM team will continue to follow closely for needs. JAYLEN Damon
[2022-12-15] MEDS: NYSTATIN POWDER 15GM 1 APPLIC TOP (15:20)
[2022-12-15] MEDS: LOPERAMIDE 2 MG CAPSULE PO (17:13)
[2022-12-15 18:00] VITALS: BP 121/56; PULSE 60; RESP 18; TEMP 36.6; O2SAT 97
[2022-12-15 20:00] VITALS: BP 112/83; PULSE 61; RESP 17; TEMP 36; O2SAT 97
[2022-12-15] MEDS: HYDROCODONE/ACET 5/325 TABLET 2 TAB PO (21:58)
[2022-12-15] MEDS: ROPINIROLE 1 MG TABLET 2 MG PO (21:59)
[2022-12-15] MEDS: ATORVASTATIN 20 MG TABLET 40 MG PO (21:59)
[2022-12-16 02:00] VITALS: BP 136/54; PULSE 60; RESP 17; TEMP 35.8; O2SAT 98
[2022-12-16] MEDS: cefTRIAXone 1,000 MG in SODIUM CHLORIDE 0.9% 100 ML 200 MG IV (04:51)
[2022-12-16] MEDS: HYDROCODONE/ACET 5/325 TABLET 2 TAB PO ×2 (04:52→11:34)
[2022-12-16] MEDS: LINEZOLID 600 MG/300 ML IV.SOLN IV (05:51)
[2022-12-16 08:22] VITALS: BP 129/58; PULSE 60; RESP 17; TEMP 36.6; O2SAT 94
[2022-12-16 08:31] LABS: Add Manual Diff / Slide Review NO; Basophils Absolute Auto 0 /uL (0-100); Basophils Percent Auto 0.3 % (0-2); Eosinophils Absolute Auto 400 /uL (0-450); Eosinophils Percent Auto 8.9 % (2-4); Hematocrit 30.4 % (41-53); Hemoglobin 10.3 g/dL (13.5-17.5); Lymphocytes Absolute Auto 1200 /uL (1100-4500); Lymphocytes Percent Auto 28.4 % (25-40); Mean Corpuscular HGB Conc 33.8 % (30-36); Mean Corpuscular Hemoglobin 28.5 PG (26-34); Mean Corpuscular Volume 84.2 fL (80-100); Monocytes Absolute Auto 400 /uL (0-900); Monocytes Percent Auto 10.3 % (3-14); Neutrophils Absolute Auto 2200 /uL (1500-7000); Neutrophils Percent Auto 52.1 % (50-75); Platelet Count 102 X10^3/uL (150-400); Red Cell Distribution Width 15.3 % (11.6-14.8); White Blood Cell Count 4.3 X10^3/uL (4.5-11.0)
[2022-12-16] MEDS: FUROSEMIDE 40 MG TABLET PO (08:35)
[2022-12-16] MEDS: PANTOPRAZOLE DR 40 MG TABLET PO (08:35)
[2022-12-16] MEDS: PRAMIPEXOLE 0.25 MG TABLET 0.5 MG PO (08:35)
[2022-12-16] MEDS: FERROUS SULFATE 325 MG TABLET PO (08:35)
[2022-12-16 08:36] VITALS: BP 129/58; PULSE 60
[2022-12-16] MEDS: GABAPENTIN 600 MG TABLET PO (08:36)
[2022-12-16] MEDS: OXYBUTYNIN 5 MG ER TAB 10 MG PO (08:36)
[2022-12-16] MEDS: METOPROLOL ER 25 MG TABLET 12.5 MG PO (08:36)
[2022-12-16 08:40] LABS: INR 2.6 (0.9-1.3); Prothrombin Time 30.5 SECONDS (10.1-12.7)
[2022-12-16] MEDS: ROPINIROLE 1 MG TABLET 1.5 MG PO (08:42)
[2022-12-16 08:44] LABS: BUN Creatinine Ratio 13.9 (6-22); Blood Urea Nitrogen 34 mg/dL (9-20); Calcium 8.4 mg/dL (8.4-10.2); Carbon Dioxide 23 mmol/L (22-32); Chloride 101 mmol/L (98-107); Estimated Glomerular Filt Rate 27 mL/min (>60); Glucose 129 mg/dL (80-110); HEMOLYSIS < 15 (0-50); Potassium 4.5 mmol/L (3.4-5.1); Sodium 133 mmol/L (137-145)
--- NOTE | 2022-12-16 10:15 | PM.DS.1 ---
History of Present Illness History of Present Illness Date Patient Seen: 12/16/22 Time Patient Seen: 10:15 Chief complaint: n/V x2 Narrative: Mr. Álvarez is a 72M with PMH CAD, VTE, afib, s/p AICD, aortic stenosis s/p TAVR, Type 2 DM on insulin, prostate cancer with right hydronephrosis thought possibly secondary to enlarged lymph node, possibly from metastatic prostate cancer who presents to the hospital with nausea, vomiting for the last two days. He has a known history of prostate cancer. He has been having noted right hydronephrosis for the last few months and has been following with urology for this. Imaging showed a mass, and possible lymph nodes that caused external compression of the ureter. He eventually presented in October with severe enough symptoms that he was tranferred for right nephrostomy tube. A couple weeks ago, He was noted to have a positive urine culture with greater than 100k MRSA in his urine, and 20-30k alcaligenes species. Sensitivities were sensitive to Bactrim to both, so this was prescribed, his planned course was to be 12/07-12/17. He felt well until two days ago when he developed malaise, nausea, and vomiting. Because of this he came to the hospital. In the ED workup was done, vitals notable for afebrile, heart rate 70s, blood pressure 90s-100s/50s, sats 91% on room air. Labs reviewed by me and notable for WBC 7.2, hgb 11.2, plts 122. Na 128, cow 17, creatinine 3.41. Lactate 3.3. Procal 1.04. UA showed no WBCs, no bacteria, no nitrates. Chest xray reviewed by me and no definite opacity noted. CT abdomen and pelvis showed right neprhostomy tube in appropriate position, stable right wall mass, and no acute findings. He was ordered for antibiotics and IV fluids and admitted for further treatment. Discharge Providers Provider Date of admission: 12/14/22 03:56 Discharge Date: 12/16/22 Primary care physician: Vandana Hart MD Discharge provider: Jamaal Bryant DO Summary Hospital Course Discharge Diagnosis: 1. Sepsis secondary to Kocuria kristinae urinary infection complicated by nephrostomy tube with GLENN, thrombocytopenia 2. GLENN on CKD stage 3 3. Hypovolemic hyponatremia 4. History of PE, afib 5. Type 2 DM on insulin 6. CAD s/p stents 7. Depression, possible restless leg syndrome Hospital Course: This is a 72 year old male admitted with nephrostomy tube, CKD, prior PE, DM2, CAD, depression admitted with sepsis secondary to initially presumed UTI. He had recent cultures with MRSA from his urine. He was started on ceftriaxone and linezoild empirically with gradual improvement in creatinine and symptoms. He improved with fluids and antibiotics. INR was elevated, likely due to bactrim he had been given for prior UTI, and improved to 2.6 on the day of discharge. Urine cultures ultimately grew Kocuria kristinae, which should be sensitive to Linezolid. Unfortunately this is a send-out test for sensitivities so this will likely return after completion of antibiotic therapy, though I did ask for sensitivities in the event he worsens after discharge. No other medication changes are recommended at the time of discharge. Despite the risk with his SSRI, linezolid is thought to be the best risk/benefit from for oral antibiotics from other options including levofloxacin (renal dysfunction) and bactrim for his infection and given tolerance of the IV form during his admission. Time Spent with Patient Time spent: Greater than 30 minutes Exam Vital Signs (past 8 hours): - 12/16/22 08:22 12/16/22 08:36 Temperature 97.8 F Pulse Rate 60 60 Respiratory Rate 17 Blood Pressure 129/58 L 129/58 L Pulse Oximetry 94 Oxygen Flow Rate 0 Oxygen Delivery Method Room Air Oxygen Flow Rate 0 Narrative Exam Narrative: GEN: no acute distress CV: regular rate and rhythm, no murmurs PULM: clear bilaterally, no wheezes, rhonchi, rales ABD: soft, nontender, nondistended BACK: Right sided nephrostomy tube draining clear yellow liquid, with mild erythema surrounding nephrostomy tube EXT: warm and well perfused, no edema NEURO: awake, alert, oriented, no focal deficits Objective Labs 12/16/22 08:18 12/16/22 08:18 Labs: Laboratory Results - last 24 hr 12/16/22 12/16/22 12/16/22 08:18 08:18 08:18 WBC 4.3 L RBC 3.60 L Hgb 10.3 L Hct 30.4 L MCV 84.2 MCH 28.5 MCHC 33.8 RDW 15.3 H Plt Count 102 L Neut % (Auto) 52.1 Lymph % (Auto) 28.4 Charlton % (Auto) 10.3 Eos % (Auto) 8.9 H Baso % (Auto) 0.3 Neut # (Auto) 2200 Lymph # (Auto) 1200 Charlton # (Auto) 400 Eos # (Auto) 400 Baso # (Auto) 0 PT 30.5 H D INR 2.6 H Sodium 133 L Potassium 4.5 Chloride 101 Carbon Dioxide 23 BUN 34 H Creatinine 2.45 H Estimated GFR 27 L BUN/Creatinine Ratio 13.9 Glucose 129 H Calcium 8.4 PFSH Medical History Androgen deprivation therapy Arthritis Atrial fibrillation CAD (coronary artery disease) Chronic anticoagulation Congestive heart failure Depression Diabetes DVT (deep venous thrombosis) Enlarged lymph node First degree AV block GERD (gastroesophageal reflux disease) Gout History of left heart catheterization (12/2019) History of prostate cancer History of radiation therapy History of transcatheter aortic valve replacement (TAVR) (08/01/18) Hydronephrosis, right Hypertension LAFB (left anterior fascicular block) Osteoarthritis Pacemaker Paroxysmal A-fib Prostate cancer RBBB Sleep apnea Stress incontinence Stress incontinence, male Surgical History AICD (automatic cardioverter/defibrillator) present (12/30/20) H/O aortic valve replacement History of back surgery Hx of heart artery stent Family History Mother Coronary artery disease involving bypass graft of transplanted heart Cancer Hypertension Social History marital status: number of children: 3 household members: none Previous occupational history: retired Smoking Status: Former smoker alcohol intake: current caffeine: Yes Discharge Plan Discharge Plan Patient Disposition: Assisted Living Other facility: [facility] Provider Discharge Comment: 72 M with nephrostomy tube admitted with urinary tract infection and GLENN. Improved with antiboitics, and will complete antibiotic therapy at [facility] with Linezolid for another 4 days. INR was supratherapeutic but now in range, safe to resume prior dosing. Discharge orders & Medications Discharge Orders: Discharge (Order); Ordered 12/16/22 Ordered By: Jamaal Bryant Prescriptions: New linezolid 600 mg tablet 600 mg PO BID 5 Days Qty: 10 0RF Continued acetaminophen 325 mg Tablet 650 mg PO Q4H PRN (Reason: pain) atorvastatin 40 mg Tablet 40 mg PO BEDTIME Antacid (calcium carbonate) 215 mg calcium (500 mg) Tablet,Chewable 500 mg DAILY furosemide 40 mg Tablet 40 mg PO DAILY gabapentin 300 mg Tablet 600 mg PO BID ferrous sulfate 325 mg (65 mg iron) Tablet 325 mg PO DAILY metoprolol succinate 25 mg Tablet Extended Release 24 Hr 12.5 mg PO DAILY Rx Instructions: Hold for SBP < 100, HR < 60 lisinopril 2.5 mg Tablet 2.5 mg PO DAILY insulin glargine 100 unit/mL Cartridge 10 unit SUBCUT QPM pramipexole 0.5 mg Tablet 0.5 mg PO DAILY pantoprazole 40 mg Tablet,Delayed Release (Dr/Ec) 40 mg PO DAILY ropinirole 1 mg Tablet 1.5 mg PO BID tolterodine 4 mg Capsule,Extended Release 24hr 4 mg PO DAILY sertraline 50 mg Tablet 50 mg PO DAILY insulin lispro 100 unit/mL Cartridge 1 sliding scale dose SUBCUT USEASDIRECTD Patient Comments: No coverage if CBG less than 150 warfarin 7.5 mg tablet 7.5 mg PO DIRECTED Rx Instructions: Every Wednesday spironolactone 25 mg tablet 25 mg PO BID ropinirole 2 mg tablet 2 mg PO BEDTIME warfarin 5 mg tablet 5 mg PO USEASDIRECTD Rx Instructions: Every Wednesday, Wednesday, , Wednesday, Wednesday and Wednesday bicalutamide 50 mg tablet 50 mg PO DAILY Rx Instructions: Prostate CA ondansetron 4 mg tablet,disintegrating 8 mg PO Q6H PRN (Reason: Nausea) hydrocodone-acetaminophen 5-325 mg tablet 2 tab PO Q6H PRN (Reason: pain) Qty: 30 0RF loperamide 2 mg tablet 2 mg PO Q6H PRN (Reason: Diarrhea) hydroxyzine pamoate [Vistaril] 25 mg capsule 25 mg PO PRN PRN (Reason: Sleep) No Action sulfamethoxazole-trimethoprim 800-160 mg tablet 1 tab PO 1700 Rx Instructions: Take for 10 daus for MRSA UTI, end date 12/17/2022 loperamide [Imodium A-D] 2 mg Capsule 2 mg PO Q24H PRN (Reason: Diarrhea) Rx Instructions: administer after each loose stool until symptoms controlled; do not exceed 8 mg per 24 hrs Follow up/Referrals: Vandana Hart MD [Primary Care Provider] - Visit Report/Discharge Packet Instructions: DI for Prescription Opioid Use, How to Use Antibiotics Wisely Stand Alone Forms: Patient Portal/API, Stroke Signs & Symptoms Discharge Data Primary Care Provider: Vandana Hart Discharges patient from system. Discharge Date/Time: 12/16/22 13:17
[2022-12-16] MEDS: BICALUTAMIDE 50 MG TABLET PO (10:51)
[2022-12-16] MEDS: levoFLOXacin 250 MG TABLET 750 MG PO (11:34)
[2022-12-16 12:00] VITALS: BP 135/59; PULSE 68; RESP 18; TEMP 35.5; O2SAT 94
--- NOTE | 2022-12-16 17:37 | CM.DPC ---
DCP Continued: FABRICATING MACHINE OPERATOR reviewed EMR. From provider in rounds, patient is cleared to go today back to [facility] at any time. FABRICATING MACHINE OPERATOR called Ina at [facility] and informed her of patient's d/c. Ina told FABRICATING MACHINE OPERATOR transportation from the facility could be there at 1330 to pick him up and take him home FABRICATING MACHINE OPERATOR faxed med list and new script to [facility]. FABRICATING MACHINE OPERATOR placed med list and original script in d/c folder. FABRICATING MACHINE OPERATOR updated nursing staff and PARKING LINE PAINTER. CM Wire Stitcher Operator Lia kindly agreed to fax d/c summary to [facility] when signed by provider. FABRICATING MACHINE OPERATOR entered room and reintroduced self and role. FABRICATING MACHINE OPERATOR informed patient of d/c time. Patient expressed verbal understanding. Plan: d/c to [facility] today with facility transportation between 1300 and 1330. CM team will continue to follow as needed. JAYLEN Damon
== END 2022-12-16 13:17 | DRG 698 ==
LOC: ED 12-14 03:55 → AC 12-14 08:20
PROVIDERS: Internal Medicine; Neuromusculoskeletal Medicine, Sports Medicine; Admitting Provider Internal Medicine; Emergency Provider Emergency Medicine; PCP Internal Medicine; Referring Provider Emergency Medicine; Visit Provider Internal Medicine
DX: T83.512A Infection and inflammatory reaction due to nephrostomy catheter, initial encounter (principal); A41.9 Sepsis, unspecified organism; R65.20 Severe sepsis without septic shock; E87.1 Hypo-osmolality and hyponatremia; N39.0 Urinary tract infection, site not specified; N17.9 Acute kidney failure, unspecified; I25.10 Atherosclerotic heart disease of native coronary artery without angina pectoris; F32.A Depression, unspecified; B96.89 Other specified bacterial agents as the cause of diseases classified elsewhere; G25.81 Restless legs syndrome; D69.59 Other secondary thrombocytopenia; E11.22 Type 2 diabetes mellitus with diabetic chronic kidney disease; N18.30 Chronic kidney disease, stage 3 unspecified; Z95.5 Presence of coronary angioplasty implant and graft; Z79.4 Long term (current) use of insulin; Z79.01 Long term (current) use of anticoagulants; Z66 Do not resuscitate; Z20.822 Contact with and (suspected) exposure to COVID-19; Z95.810 Presence of automatic (implantable) cardiac defibrillator; Z95.2 Presence of prosthetic heart valve; Z93.6 Other artificial openings of urinary tract status; Z87.891 Personal history of nicotine dependence; Z86.711 Personal history of pulmonary embolism; R07.9 Chest pain, unspecified
CPT/HCPCS: 36415; 71045; 74176; 80048; 80053; 81001; 81003; 82550; 82962; 83605; 83690; 83735; 84145; 84484; 85025; 85027; 85610; 85730; 86850; 86900; 86901; 87040; 87077; 87086; 87147; 93005; 93010; 96365; 96366; 96367; 99284; 99285; G0378; J0696; J1170; J1644; J2020; J2405

== ENCOUNTER → 2022-12-29 08:25 | Outpatient (ROUT) | payer MEDICARE, MEDICAID, SELFPAY ==
[2022-12-14 05:16] VITALS: BMI 33.8
[2022-12-29 08:53] LABS: Add Manual Diff / Slide Review NO; Basophils Absolute Auto 100 /uL (0-100); Basophils Percent Auto 1.3 % (0-2); Eosinophils Absolute Auto 200 /uL (0-450); Eosinophils Percent Auto 1.9 % (2-4); Hematocrit 30.6 % (41-53); Hemoglobin 10.5 g/dL (13.5-17.5); Lymphocytes Absolute Auto 1400 /uL (1100-4500); Lymphocytes Percent Auto 16.1 % (25-40); Mean Corpuscular HGB Conc 34.2 % (30-36); Mean Corpuscular Volume 84.6 fL (80-100); Monocytes Absolute Auto 600 /uL (0-900); Monocytes Percent Auto 7.2 % (3-14); Neutrophils Absolute Auto 6300 /uL (1500-7000); Neutrophils Percent Auto 73.5 % (50-75); Platelet Count 117 X10^3/uL (150-400); Red Blood Cell Count 3.62 X10^6/uL (4.5-5.9); Red Cell Distribution Width 16.2 % (11.6-14.8); White Blood Cell Count 8.6 X10^3/uL (4.5-11.0)
[2022-12-29 09:12] LABS: BUN Creatinine Ratio 12.9 (6-22); Blood Urea Nitrogen 26 mg/dL (9-20); Calcium 8.6 mg/dL (8.4-10.2); Carbon Dioxide 26 mmol/L (22-32); Chloride 103 mmol/L (98-107); Estimated Glomerular Filt Rate 34 mL/min (>60); Glucose 140 mg/dL (80-110); HEMOLYSIS < 15 (0-50); Potassium 3.8 mmol/L (3.4-5.1); Sodium 136 mmol/L (137-145)
[2022-12-30 03:10] LABS: Labcorp Hemoglobin (Hb) A1c 7.1 % (4.8-5.6)
== END ==
PROVIDERS: PCP Internal Medicine; Visit Provider Nurse Practitioner Gerontology
DX: E11.9 Type 2 diabetes mellitus without complications (principal); N18.9 Chronic kidney disease, unspecified
CPT/HCPCS: 36415; 80048; 83036; 85025

== ENCOUNTER → 2023-01-13 16:39 | Outpatient (ROUT) | payer MEDICARE, MEDICAID, SELFPAY ==
[2022-12-14 05:16] VITALS: BMI 33.8
[2023-01-13 16:47] LABS: Add Manual Diff / Slide Review NO; Basophils Absolute Auto 100 /uL (0-100); Basophils Percent Auto 0.6 % (0-2); Eosinophils Absolute Auto 400 /uL (0-450); Eosinophils Percent Auto 3.5 % (2-4); Hematocrit 33.4 % (41-53); Hemoglobin 11.2 g/dL (13.5-17.5); Lymphocytes Absolute Auto 1500 /uL (1100-4500); Lymphocytes Percent Auto 12.3 % (25-40); Mean Corpuscular HGB Conc 33.5 % (30-36); Mean Corpuscular Hemoglobin 28.3 PG (26-34); Mean Corpuscular Volume 84.3 fL (80-100); Monocytes Absolute Auto 500 /uL (0-900); Neutrophils Absolute Auto 9700 /uL (1500-7000); Neutrophils Percent Auto 79.6 % (50-75); Platelet Count 202 X10^3/uL (150-400); Red Blood Cell Count 3.97 X10^6/uL (4.5-5.9); Red Cell Distribution Width 15.3 % (11.6-14.8); White Blood Cell Count 12.2 X10^3/uL (4.5-11.0)
== END ==
PROVIDERS: PCP Internal Medicine; Visit Provider Internal Medicine
DX: N17.9 Acute kidney failure, unspecified (principal); D72.829 Elevated white blood cell count, unspecified
CPT/HCPCS: 85025

== ENCOUNTER → 2023-01-14 11:04 | Outpatient (ROUT) | payer MEDICARE, MEDICAID, SELFPAY ==
[2022-12-14 05:16] VITALS: BMI 33.8
[2023-01-14 11:22] LABS: INR 3.3 (0.9-1.3); Prothrombin Time 38.2 SECONDS (10.1-12.7)
== END ==
PROVIDERS: PCP Internal Medicine; Visit Provider Internal Medicine
DX: I48.91 Unspecified atrial fibrillation (principal); Z79.01 Long term (current) use of anticoagulants
CPT/HCPCS: 85610

== ENCOUNTER → 2023-01-22 15:19 | Outpatient (ROUT) | payer MEDICARE, MEDICAID, SELFPAY ==
[2022-12-14 05:16] VITALS: BMI 33.8
[2023-01-22 15:34] LABS: INR 1.8 (0.9-1.3); Prothrombin Time 21.2 SECONDS (10.1-12.7)
== END ==
PROVIDERS: PCP Internal Medicine; Visit Provider Internal Medicine
DX: I25.10 Atherosclerotic heart disease of native coronary artery without angina pectoris (principal)
CPT/HCPCS: 85610

== ENCOUNTER 2023-01-23 19:40 | Inpatient (IN) | payer MEDICARE, MEDICAID, SELFPAY ==
[2022-12-14 05:16] VITALS: BMI 33.8
[2023-01-23] VITALS (14 sets, daily range): BP systolic 110–150; BP diastolic 50–76; PULSE 71–93; RESP 20–30; TEMP 37–38.3; O2SAT 93–98; BMI 29.5
--- NOTE | 2023-01-23 19:44 | ED.GENADULT ---
HPI - General Adult General Chief complaint: Fever Stated complaint: Resp distress Time Seen by Provider: 01/23/23 19:46 History of Present Illness HPI narrative: 72-year-old male former smoker with history of pacemaker, prior aortic valve replacement, reflux, prostate cancer, chronic kidney disease, chronic anticoagulation, CHF with occasional use of home oxygen presents by EMS for evaluation fever, shaking chills as well as nausea and vomiting for the past 24 hours or so. He denies abdominal pain. He denies chest pain. He denies any shortness of breath or cough, on arrival EMS found his room air pulse ox at 90-91, he was put on 2 L by nasal cannula and improved to the mid 90s. He denies abdominal pain, constipation or diarrhea. He denies obvious dysuria, frequency or urgency. Related Data Home Medications Medication Instructions Recorded Confirmed acetaminophen 325 mg tablet 650 mg PO Q4H PRN pain 06/13/22 01/24/23 atorvastatin 40 mg tablet 40 mg PO BEDTIME 06/13/22 01/24/23 calcium carbonate 215 mg calcium 500 mg DAILY 06/13/22 01/24/23 (500 mg) chewable tablet (Antacid (calcium carbonate)) ferrous sulfate 325 mg (65 mg 325 mg PO DAILY 06/13/22 01/24/23 iron) tablet furosemide 40 mg tablet 40 mg PO DAILY 06/13/22 01/24/23 gabapentin 300 mg tablet 600 mg PO BID 06/13/22 01/24/23 insulin glargine 100 unit/mL 10 unit SUBCUT QPM 06/13/22 01/24/23 subcutaneous cartridge insulin lispro 100 unit/mL 1 sliding scale dose SUBCUT 06/13/22 01/24/23 subcutaneous cartridge USEASDIRECTD lisinopril 2.5 mg tablet 2.5 mg PO DAILY 06/13/22 01/24/23 metoprolol succinate 25 mg 12.5 mg PO DAILY 06/13/22 01/24/23 tablet,extended release 24 hr pantoprazole 40 mg tablet,delayed 40 mg PO DAILY 06/13/22 01/24/23 release pramipexole 0.5 mg tablet 0.5 mg PO DAILY 06/13/22 01/24/23 ropinirole 1 mg tablet 1.5 mg PO BID 06/13/22 01/24/23 sertraline 50 mg tablet 50 mg PO DAILY 06/13/22 01/24/23 tolterodine 4 mg capsule,extended 4 mg PO DAILY 06/13/22 01/24/23 release 24 hr hydroxyzine pamoate 25 mg capsule 25 mg PO PRN PRN Sleep 08/03/22 01/24/23 (Vistaril) bicalutamide 50 mg tablet 50 mg PO DAILY 12/14/22 01/24/23 loperamide 2 mg capsule (Imodium 2 mg PO Q24H PRN Diarrhea 12/14/22 01/24/23 A-D) ondansetron 4 mg disintegrating 8 mg PO Q6H PRN Nausea 12/14/22 01/24/23 tablet ropinirole 2 mg tablet 2 mg PO BEDTIME 12/14/22 01/24/23 spironolactone 25 mg tablet 25 mg PO BID 12/14/22 01/24/23 Previous Rx's Medication Instructions Recorded hydrocodone 5 mg-acetaminophen 325 2 tab PO Q6H PRN pain #30 tabs 10/18/22 mg tablet Allergies Allergy/AdvReac Type Severity Reaction Status Date / Time crab Allergy Severe Deathly Verified 10/23/22 11:54 sick aspartame Allergy Unknown Verified 10/22/22 15:15 carbidopa Allergy Hallucinations, Verified 10/23/22 11:54 anxiety morphine AdvReac Nausea/vomi Verified 10/23/22 11:54 ting Review of Systems Review of Systems Narrative: GENERAL: See HPI HEENT: Denies sinus pain, ear pain, sore throat, difficulty swallowing, dizziness. RESPIRATORY: Denies dyspnea, cough, wheezing, hemoptysis, sputum. CARDIOVASCULAR: Denies chest pain, palpitations, orthopnea, edema, GASTROINTESTINAL: See HPI : Denies dysuria, frequency, incontinence, hematuria, urinary retention. MUSCULOSKELETAL: denies weakness, joint pain, or bony pain SKIN: Denies rash, skin lesions, or other NEUROLOGIC: Denies weakness, headache, numbness, change in speech, confusion, seizures, incoordination. PSYCHIATRIC: No concerning psychosocial issues. 12 point review of systems is negative except for those stated above Patient History Medical History (Updated 01/24/23 @ 02:12 by Mckinley Sousa MD) Androgen deprivation therapy Arthritis Atrial fibrillation CAD (coronary artery disease) Chronic anticoagulation Congestive heart failure Depression Diabetes DVT (deep venous thrombosis) Enlarged lymph node First degree AV block GERD (gastroesophageal reflux disease) Gout History of left heart catheterization (12/2019) History of prostate cancer History of radiation therapy History of transcatheter aortic valve replacement (TAVR) (08/01/18) Hydronephrosis, right Hypertension LAFB (left anterior fascicular block) Osteoarthritis Pacemaker Paroxysmal A-fib Prostate cancer RBBB Sleep apnea Stress incontinence Stress incontinence, male Surgical History AICD (automatic cardioverter/defibrillator) present (12/30/20) H/O aortic valve replacement History of back surgery Hx of heart artery stent Family History Mother Coronary artery disease involving bypass graft of transplanted heart Cancer Hypertension Social History marital status: number of children: 3 household members: none Previous occupational history: retired Smoking Status: Former smoker alcohol intake: never caffeine: Yes Smoking Status: Former smoker tobacco type: cigarettes alcohol intake frequency: 0-2 drinks per day Substance Use Type: does not use and former substance user Exam Narrative Exam Narrative: GENERAL: [72] year old patient appears stated age. Well-developed patient, in mild distress. HEAD: Atraumatic. Normocephalic. EYES: Pupils equal round and reactive. Extraocular motions intact. No scleral icterus. No injection or drainage. ENT: Nose without bleeding, purulent drainage. Throat without erythema, tonsillar hypertrophy or exudate. Airway patent. NECK: Trachea midline. Non tender CARDIOVASCULAR: Regular rate and rhythm without murmurs, gallops, or rubs. RESPIRATORY: Decreased lung sounds throughout with prolonged expiratory phase, no obvious wheezes, rales or rhonchi, use of accessory muscle GASTROINTESTINAL: Abdomen soft, non-tender, nondistended. EXTREMITIES: No edema or joint tenderness. BACK: Nontender without deformity or crepitance. No flank tenderness. NEURO: AOx3. SKIN: No rash or erythema of visible areas Initial Vital Signs Initial Vital Signs: Vital Signs Pulse Rate 90 01/23/23 19:43 Pulse Oximetry 93 01/23/23 19:43 Oxygen Delivery Method Nasal Cannula 01/23/23 19:43 Oxygen Flow Rate 2 01/23/23 19:43 Course Orders Ordered: Acetaminophen (Acetaminophen 325 Mg Tablet) 650 mg PO Q6H PRN PRN Reason: Fever/Mild Pain (1-3) Hydrocodone Bitart/Acetaminophen (Hydrocodone/Acet 10/325 Tablet) 1 tab PO Q6HR PRN PRN Reason: Pain, Moderate (4-6) Last Admin: 01/24/23 06:41 Dose: 1 tab Documented By: SR Al Hydrox/Mg Hydrox/Simethicone (Mag Hydrox/Alum/Simeth 30 Ml Udc) 30 ml PO Q6HR PRN PRN Reason: Dyspepsia Atorvastatin Calcium (Atorvastatin 20 Mg Tablet) 40 mg PO BEDTIME ANNAMARIE Dextrose (Dextrose 50 % In Water 25 Gm/50 Ml Syringe) 25 gm IV PRN PRN; Protocol PRN Reason: Hypoglycemia Gabapentin (Gabapentin 600 Mg Tablet) 600 mg PO BID [facility] Heparin Sodium (Porcine) (Heparin 5,000 Unit/Ml Vial) 5,000 unit SUBCUT BID [facility] Ceftriaxone Sodium 1,000 mg/ (Sodium Chloride) 100 mls @ 200 mls/hr IV Q24H [facility] Insulin Glargine (Insulin Glargine 100 Unit/Ml 3ml Pen) 10 unit SUBCUT DAILY [facility] Insulin Human Lispro (Insulin Lispro 100 Unit/Ml 3ml Vial) 0 unit SUBCUT ACHS ANNAMARIE; Protocol Lisinopril (Lisinopril 5 Mg Tablet) 2.5 mg PO DAILY [facility] Metoprolol Succinate (Metoprolol Er 25 Mg Tablet) 12.5 mg PO DAILY [facility] Naloxone HCl (Naloxone 0.4 Mg/Ml Vial) 0.2 mg IV Q2MIN PRN PRN Reason: Opiate Reversal Ondansetron HCl (Ondansetron 4 Mg Odt) 4 mg PO Q8HR PRN PRN Reason: Nausea And Vomiting Last Admin: 01/24/23 00:45 Dose: 4 mg Documented By: SR Pramipexole Dihydrochloride (Pramipexole 0.25 Mg Tablet) 0.5 mg PO BEDTIME ANNAM[facility]IE Prochlorperazine (Prochlorperazine 5 Mg Tablet) 5 mg PO Q6HR PRN PRN Reason: Nausea Sennosides (Sennosides 8.6 Mg Tablet) 17.2 mg PO BEDTIME [facility] Discontinued Medications Sodium Chloride (Normal Saline 0.9%) 1,000 mls @ 1,000 mls/hr IV BOLUS ONE Stop: 01/23/23 20:45 Last Admin: 01/23/23 20:33 Dose: Not Given Documented By: GABY Sodium Chloride (Normal Saline 0.9%) 3,211.44 mls @ 1,070.48 mls/hr 30 ml/kg infuse over 3 hr (3211.44 ml) IV NOW ONE Stop: 01/23/23 23:12 Last Infusion: 01/23/23 22:52 Dose: 1,070.48 mls/hr Documented By: Admin: 01/23/23 19:58 Dose: 1,070.48 mls/hr Documented By: GABY Ceftriaxone Sodium 2,000 mg/ (Sodium Chloride) 100 mls @ 200 mls/hr IV NOW ONE Stop: 01/23/23 20:14 Last Infusion: 01/23/23 21:09 Dose: 0 mls/hr Documented By: Admin: 01/23/23 20:34 Dose: 200 mls/hr Documented By: GABY Ondansetron HCl (Ondansetron 4 Mg/2 Ml Inj) 4 mg IV NOW ONE Stop: 01/23/23 19:47 Last Admin: 01/23/23 19:58 Dose: 4 mg Documented By: GABY Pantoprazole Sodium (Pantoprazole 40 Mg Vial) 40 mg IV NOW ONE Stop: 01/23/23 19:47 Last Admin: 01/23/23 19:58 Dose: 40 mg Documented By: GABY Vital Signs Vital signs: Vital Signs - 8 hr 01/23/23 19:43 01/23/23 19:44 01/23/23 19:44 Temperature Pulse Rate 90 90 Respiratory Rate Blood Pressure 128/59 L Pulse Oximetry 93 93 Oxygen Delivery Method Nasal Cannula Oxygen Flow Rate 2 01/23/23 20:00 01/23/23 20:01 01/23/23 20:01 Temperature Pulse Rate 91 H 92 H Respiratory Rate Blood Pressure 124/60 Pulse Oximetry 94 95 Oxygen Delivery Method Oxygen Flow Rate 01/23/23 20:30 01/23/23 20:30 01/23/23 21:00 Temperature Pulse Rate 80 Respiratory Rate Blood Pressure 110/53 L 111/52 L Pulse Oximetry 95 Oxygen Delivery Method Nasal Cannula Oxygen Flow Rate 2 01/23/23 21:00 01/23/23 21:30 01/23/23 21:31 Temperature 100.3 F H Pulse Rate 79 75 76 Respiratory Rate 28 H 27 H 29 H Blood Pressure Pulse Oximetry 97 97 97 Oxygen Delivery Method Nasal Cannula Oxygen Flow Rate 2 01/23/23 21:31 01/23/23 19:47 Temperature 101 F H Pulse Rate 93 H Respiratory Rate 20 Blood Pressure 118/50 L 128/59 L Pulse Oximetry 93 Oxygen Delivery Method Room Air Oxygen Flow Rate Medical Decision Making Lab Data 01/24/23 05:40 01/24/23 05:40 Labs: Lab Results 01/23/23 01/23/23 01/23/23 Range/Units 19:20 19:20 19:20 WBC 23.2 H (4.5-11.0) X10^3/uL RBC 3.80 L (4.5-5.9) X10^6/uL Hgb 10.7 L (13.5-17.5) g/dL Hct 32.1 L (41-53) % MCV 84.4 (80-100) fL MCH 28.1 (26-34) PG MCHC 33.3 (30-36) % RDW 15.8 H (11.6-14.8) % Plt Count 200 (150-400) X10^3/uL Neut % (Auto) 89.3 H (50-75) % Lymph % (Auto) 1.9 L (25-40) % [place] % (Auto) 8.6 (3-14) % Eos % (Auto) 0.0 L (2-4) % Baso % (Auto) 0.2 (0-2) % Neut # (Auto) 86510 H (6616-1531) /uL Lymph # (Auto) 500 L (7664-4735) /uL [place] # (Auto) 2000 H (0-900) /uL Eos # (Auto) 0 (0-450) /uL Baso # (Auto) 0 (0-100) /uL Sodium 133 L (137-145) mmol/L Potassium 4.1 (3.4-5.1) mmol/L Chloride 99 (98-107) mmol/L Carbon Dioxide 22 (22-32) mmol/L BUN 27 H (9-20) mg/dL Creatinine 2.01 H (0.66-1.25) mg/dL Estimated GFR 34 L (>60) mL/min BUN/Creatinine Ratio 13.4 (6-22) Glucose 213 H (80-110) mg/dL Lactate 2.7 H (0.7-2.1) mmol/L Calcium 8.8 (8.4-10.2) mg/dL Magnesium 1.6 (1.6-2.3) mg/dL Total Bilirubin 1.1 (0.2-1.3) mg/dL AST 21 (17-59) IU/L ALT 18 (<50) IU/L Alkaline Phosphatase 76 (38-126) U/L Total Creatine Kinase (55-170) U/L Troponin I (0.01-0.034) ng/mL Total Protein 7.1 (6.3-8.2) g/dL Albumin 3.9 (3.5-5.0) g/dL Globulin 3.2 (1.7-4.1) g/dL Albumin/Globulin Ratio 1.2 (1.0-2.8) Lipase 30 (23-300) U/L Procalcitonin (<0.5) ng/mL Ur Bilirubin Confirm (Negative) Urine RBC (0-5/HPF) Urine WBC (0-5/HPF) Ur Squamous Epith Cells (0-5/HPF) Urine Bacteria (None) Ur Culture Indicated? Chlamy pneumoniae PCR (Not Detect) Adenovirus (PCR) (Not Detect) B. pertussis DNA (PCR) (Not Detecte) B.parapertussis DNA PCR (Not Detecte) Coronavirus OC43 (PCR) (Not Detect) Coronavirus HKU1 (PCR) (Not Detect) Coronavirus 229E (PCR) (Not Detect) SARS-CoV-2 (PCR) (Not Detecte) Coronavirus NL63 (PCR) (Not Detect) Human Metapneumovir PCR (Not Detect) Influenza Type A (PCR) (Not Detect) Influenza Type B (PCR) (Not Detect) M. pneumoniae (PCR) (Not Detect) Parainfluenza 1 (PCR) (Not Detect) Parainfluenza 2 (PCR) (Not Detect) Parainfluenza 3 (PCR) (Not Detect) Parainfluenza 4 (PCR) (Not Detect) RSV (PCR) (Not Detect) Entero/Rhino (PCR) (Not Detect) 01/23/23 01/23/23 01/23/23 Range/Units 19:20 20:11 20:11 WBC (4.5-11.0) X10^3/uL RBC (4.5-5.9) X10^6/uL Hgb (13.5-17.5) g/dL Hct (41-53) % MCV (80-100) fL MCH (26-34) PG MCHC (30-36) % RDW (11.6-14.8) % Plt Count (150-400) X10^3/uL Neut % (Auto) (50-75) % Lymph % (Auto) (25-40) % [place] % (Auto) (3-14) % Eos % (Auto) (2-4) % Baso % (Auto) (0-2) % Neut # (Auto) (7858-6491) /uL Lymph # (Auto) (5542-2272) /uL [place] # (Auto) (0-900) /uL Eos # (Auto) (0-450) /uL Baso # (Auto) (0-100) /uL Sodium (137-145) mmol/L Potassium (3.4-5.1) mmol/L Chloride (98-107) mmol/L Carbon Dioxide (22-32) mmol/L BUN (9-20) mg/dL Creatinine (0.66-1.25) mg/dL Estimated GFR (>60) mL/min BUN/Creatinine Ratio (6-22) Glucose (80-110) mg/dL Lactate (0.7-2.1) mmol/L Calcium (8.4-10.2) mg/dL Magnesium (1.6-2.3) mg/dL Total Bilirubin (0.2-1.3) mg/dL AST (17-59) IU/L ALT (<50) IU/L Alkaline Phosphatase (38-126) U/L Total Creatine Kinase 26 L (55-170) U/L Troponin I < 0.012 (0.01-0.034) ng/mL Total Protein (6.3-8.2) g/dL Albumin (3.5-5.0) g/dL Globulin (1.7-4.1) g/dL Albumin/Globulin Ratio (1.0-2.8) Lipase (23-300) U/L Procalcitonin 1.48 H (<0.5) ng/mL Ur Bilirubin Confirm (Negative) Urine RBC (0-5/HPF) Urine WBC (0-5/HPF) Ur Squamous Epith Cells (0-5/HPF) Urine Bacteria (None) Ur Culture Indicated? Chlamy pneumoniae PCR Not detected (Not Detect) Adenovirus (PCR) Not detected (Not Detect) B. pertussis DNA (PCR) Not detected (Not Detecte) B.parapertussis DNA PCR Not detected (Not Detecte) Coronavirus OC43 (PCR) Not detected (Not Detect) Coronavirus HKU1 (PCR) Not detected (Not Detect) Coronavirus 229E (PCR) Not detected (Not Detect) SARS-CoV-2 (PCR) Not detected (Not Detecte) Coronavirus NL63 (PCR) Not detected (Not Detect) Human Metapneumovir PCR Not detected (Not Detect) Influenza Type A (PCR) Not detected (Not Detect) Influenza Type B (PCR) Not detected (Not Detect) M. pneumoniae (PCR) Not detected (Not Detect) Parainfluenza 1 (PCR) Not detected (Not Detect) Parainfluenza 2 (PCR) Not detected (Not Detect) Parainfluenza 3 (PCR) Not detected (Not Detect) Parainfluenza 4 (PCR) Not detected (Not Detect) RSV (PCR) Not detected (Not Detect) Entero/Rhino (PCR) Not detected (Not Detect) 01/23/23 01/23/23 01/23/23 Range/Units 20:19 20:19 21:20 WBC (4.5-11.0) X10^3/uL RBC (4.5-5.9) X10^6/uL Hgb (13.5-17.5) g/dL Hct (41-53) % MCV (80-100) fL MCH (26-34) PG MCHC (30-36) % RDW (11.6-14.8) % Plt Count (150-400) X10^3/uL Neut % (Auto) (50-75) % Lymph % (Auto) (25-40) % [place] % (Auto) (3-14) % Eos % (Auto) (2-4) % Baso % (Auto) (0-2) % Neut # (Auto) (6817-7776) /uL Lymph # (Auto) (2275-1808) /uL [place] # (Auto) (0-900) /uL Eos # (Auto) (0-450) /uL Baso # (Auto) (0-100) /uL Sodium (137-145) mmol/L Potassium (3.4-5.1) mmol/L Chloride (98-107) mmol/L Carbon Dioxide (22-32) mmol/L BUN (9-20) mg/dL Creatinine (0.66-1.25) mg/dL Estimated GFR (>60) mL/min BUN/Creatinine Ratio (6-22) Glucose (80-110) mg/dL Lactate 1.4 (0.7-2.1) mmol/L Calcium (8.4-10.2) mg/dL Magnesium (1.6-2.3) mg/dL Total Bilirubin (0.2-1.3) mg/dL AST (17-59) IU/L ALT (<50) IU/L Alkaline Phosphatase (38-126) U/L Total Creatine Kinase (55-170) U/L Troponin I (0.01-0.034) ng/mL Total Protein (6.3-8.2) g/dL Albumin (3.5-5.0) g/dL Globulin (1.7-4.1) g/dL Albumin/Globulin Ratio (1.0-2.8) Lipase (23-300) U/L Procalcitonin (<0.5) ng/mL Ur Bilirubin Confirm Negative (Negative) Urine RBC None seen (0-5/HPF) Urine WBC 5-10/hpf H (0-5/HPF) Ur Squamous Epith Cells None seen (0-5/HPF) Urine Bacteria Moderate (10-30) H (None) Ur Culture Indicated? Specimen cultured Chlamy pneumoniae PCR (Not Detect) Adenovirus (PCR) (Not Detect) B. pertussis DNA (PCR) (Not Detecte) B.parapertussis DNA PCR (Not Detecte) Coronavirus OC43 (PCR) (Not Detect) Coronavirus HKU1 (PCR) (Not Detect) Coronavirus 229E (PCR) (Not Detect) SARS-CoV-2 (PCR) (Not Detecte) Coronavirus NL63 (PCR) (Not Detect) Human Metapneumovir PCR (Not Detect) Influenza Type A (PCR) (Not Detect) Influenza Type B (PCR) (Not Detect) M. pneumoniae (PCR) (Not Detect) Parainfluenza 1 (PCR) (Not Detect) Parainfluenza 2 (PCR) (Not Detect) Parainfluenza 3 (PCR) (Not Detect) Parainfluenza 4 (PCR) (Not Detect) RSV (PCR) (Not Detect) Entero/Rhino (PCR) (Not Detect) Urine Dip Bedside Urine Glucose Negative Bedside Urine Bilirubin + 1 Urine Specific [place] 1.020 Bedside Urine Occult Blood - Negative Bedside Urine pH 6.0 Bedside Urine Protein +/- 15 Bedside Urine Urobilinogen - Negative Bedside Urine Nitrite - Negative Bedside Urine Leukocytes + 70 Esterase Point of care testing: Urine Dip Bedside Urine Glucose Negative Bedside Urine Bilirubin + 1 Urine Specific [place] 1.020 Bedside Urine Occult Blood - Negative Bedside Urine pH 6.0 Bedside Urine Protein +/- 15 Bedside Urine Urobilinogen - Negative Bedside Urine Nitrite - Negative Bedside Urine Leukocytes + 70 Esterase MDM Narrative Medical decision making narrative: CC: 72-year-old male with fever, shaking chills and vomiting Complicating co-morbidities: Age, hypertension, hyperlipidemia, CHF Data collected from: Patient Medical records reviewed: Prior notes reviewed in our EMR Differential considered, but not limited to: Sepsis due to pneumonia versus viral upper respiratory infection versus UTI versus other Exam documented above, pertinent findings include: Heart rate regular, lungs clear, no evidence of labored breathing, abdomen soft and nontender Lab Test results independently reviewed as above. Pertinent findings: Leukocytosis with left shift, elevated lactate and procalcitonin Independently reviewed EKG as above Imaging studies independently reviewed: No acute process Consultations: Discussed with Dr. Campos, hospitalist, happy to accept on his service Treatments: Rocephin, fluids Re-evaluations: Improved vital signs, improved lactate Discussion: Patient presents with sepsis, improved after typical therapies, requires hospitalization for ongoing treatment and evaluation Discharge Plan Departure Patient Disposition: Admitted As Inpatient Clinical Impression: Acute UTI, Vomiting Sepsis Qualifiers: Sepsis acute organ dysfunction status: without acute organ dysfunction Admit Date/Time: 01/23/23 22:21 Admit Provider: Mckinley Sousa
--- NOTE | 2023-01-23 19:46 | DI.RAD.S_ITS ---
PROCEDURE: XR ABDOMEN 1V INDICATIONS: N/V TECHNIQUE: One view of the abdomen acquired. COMPARISON: [facility], CT, CT ABDOMEN PELVIS WO CON, 12/14/2022, 1:37. FINDINGS: Surgical changes and devices: Right-sided nephrostomy tube again noted. Several surgical clips at the midline of the lower pelvis.. Bowel: Bowel gas pattern is normal except for moderate colonic obstipation. Soft tissues: No suspicious abdominal calcifications. Visualized solid organ contours appear normal in size. Bones: No suspicious bony lesions. IMPRESSION: No sign of intestinal obstruction or perforation. Moderate colonic obstipation. Dictated by: Claude Hernandez M.D. on 01/23/2023 at 20:24 Approved by: Claude Hernandez M.D. on 01/23/2023 at 20:25
--- NOTE | 2023-01-23 19:47 | DI.RAD.S_ITS ---
PROCEDURE: XR CHEST 1V INDICATIONS: sepsis, respiratory distress TECHNIQUE: One view of the chest was acquired. COMPARISON: [facility], CR, XR CHEST 1V, 12/13/2022, 23:44. [facility], CR, XR CHEST 1V, 04/20/2022, 13:09. FINDINGS: Surgical changes and devices: Pacemaker, leads, and aortic valve annulus stent in stable normal position.. Lungs and pleura: Lungs are clear. No pleural effusions or pneumothorax. Mediastinum: Mediastinal contours appear normal. Heart size is normal. Bones and chest wall: No suspicious bony lesions. Overlying soft tissues appear unremarkable. IMPRESSION: No pneumonia found. Cardiac related postsurgical change. No sign of CHF. Dictated by: Claude Hernandez M.D. on 01/23/2023 at 20:23 Approved by: Claude Hernandez M.D. on 01/23/2023 at 20:23
[2023-01-23] MEDS: PANTOPRAZOLE 40 MG VIAL IV (19:58)
[2023-01-23] MEDS: ONDANSETRON 4 MG/2 ML INJ IV (19:58)
[2023-01-23] MEDS: SODIUM CHLORIDE 0.9% 1070.48 ML IV (19:58)
[2023-01-23 20:00] LABS: Add Manual Diff / Slide Review NO; Basophils Absolute Auto 0 /uL (0-100); Basophils Percent Auto 0.2 % (0-2); Eosinophils Absolute Auto 0 /uL (0-450); Hematocrit 32.1 % (41-53); Hemoglobin 10.7 g/dL (13.5-17.5); Lymphocytes Absolute Auto 500 /uL (1100-4500); Lymphocytes Percent Auto 1.9 % (25-40); Mean Corpuscular HGB Conc 33.3 % (30-36); Mean Corpuscular Hemoglobin 28.1 PG (26-34); Mean Corpuscular Volume 84.4 fL (80-100); Monocytes Absolute Auto 2000 /uL (0-900); Monocytes Percent Auto 8.6 % (3-14); Neutrophils Absolute Auto 20700 /uL (1500-7000); Neutrophils Percent Auto 89.3 % (50-75); Platelet Count 200 X10^3/uL (150-400); Red Cell Distribution Width 15.8 % (11.6-14.8); White Blood Cell Count 23.2 X10^3/uL (4.5-11.0)
[2023-01-23 20:06] LABS: Lactate (Lactic Acid) 2.7 mmol/L (0.7-2.1)
[2023-01-23 20:07] LABS: Alanine Aminotransferase 18 IU/L (<50); Albumin 3.9 g/dL (3.5-5.0); Albumin Globulin Ratio 1.2 (1.0-2.8); Alkaline Phosphatase 76 U/L (38-126); Aspartate Aminotransferase 21 IU/L (17-59); BUN Creatinine Ratio 13.4 (6-22); Bilirubin Total 1.1 mg/dL (0.2-1.3); Blood Urea Nitrogen 27 mg/dL (9-20); Calcium 8.8 mg/dL (8.4-10.2); Carbon Dioxide 22 mmol/L (22-32); Chloride 99 mmol/L (98-107); Creatine Kinase 26 U/L (55-170); Estimated Glomerular Filt Rate 34 mL/min (>60); Globulin 3.2 g/dL (1.7-4.1); Glucose 213 mg/dL (80-110); HEMOLYSIS 31 (0-50); Lipase 30 U/L (23-300); Magnesium 1.6 mg/dL (1.6-2.3); Potassium 4.1 mmol/L (3.4-5.1); Sodium 133 mmol/L (137-145); Total Protein 7.1 g/dL (6.3-8.2)
[2023-01-23 20:18] LABS: Troponin I < 0.012 ng/mL (0.01-0.034)
[2023-01-23] MEDS: cefTRIAXone 2,000 MG in SODIUM CHLORIDE 0.9% 100 ML 200 MG IV (20:34)
[2023-01-23 20:44] LABS: Bacteria Urine Moderate (10-30); Culture Indicated Urine Specimen Cultured; Ictotest Urine Negative (Negative); RBC Urine None Seen (0-5/HPF); Squamous Epithelial Cell Urine None Seen (0-5/HPF); WBC Urine 5-10/HPF (0-5/HPF)
[2023-01-23 20:50] LABS: Procalcitonin 1.48 ng/mL (<0.5)
[2023-01-23 21:27] LABS: Adenovirus Not Detected (Not Detect); B. parapertussis Not Detected (Not Detecte); Bordetella pertussis Not Detected (Not Detecte); Chlamydophila pneumoniae Not Detected (Not Detect); Coronavirus 229E Not Detected (Not Detect); Coronavirus HKU1 Not Detected (Not Detect); Coronavirus NL 63 Not Detected (Not Detect); Coronavirus OC43 Not Detected (Not Detect); Human Metapneumovirus Not Detected (Not Detect); Human Rhinovirus/Enterovirus Not Detected (Not Detect); Influenza A Not Detected (Not Detect); Influenza B Not Detected (Not Detect); Mycoplasma pneumoniae Not Detected (Not Detect); Parainfluenza Virus 1 Not Detected (Not Detect); Parainfluenza Virus 2 Not Detected (Not Detect); Parainfluenza Virus 3 Not Detected (Not Detect); Parainfluenza Virus 4 Not Detected (Not Detect); Respiratory Syncytial Virus Not Detected (Not Detect); SARS- CoV-2 Not Detected (Not Detecte)
[2023-01-23 21:55] LABS: Reflexed Lactate in 2 Hours Y
[2023-01-23 22:10] LABS: Lactate 2HR (Lactic Acid Rflx) 1.4 mmol/L (0.7-2.1)
--- NOTE | 2023-01-23 22:17 | PC.NURSE ---
Pt laying flat. Audible wheezes heard. Pt repositioned and wheezing stopped. Provider made aware.
[2023-01-24] MEDS: ONDANSETRON 4 MG ODT PO ×2 (00:45→09:29)
--- NOTE | 2023-01-24 01:45 | P.HP_ITS ---
History of Present Illness History of Present Illness Chief complaint: Resp distress Narrative: Presents to ED after 24 hours of fever, chills, burning on urination, generalized weakness. Diagnosed with sepsis and UTI. [facility] Medical History (Updated 01/24/23 @ 02:12 by Mckinley Sousa MD) Androgen deprivation therapy Arthritis Atrial fibrillation CAD (coronary artery disease) Chronic anticoagulation Congestive heart failure Depression Diabetes DVT (deep venous thrombosis) Enlarged lymph node First degree AV block GERD (gastroesophageal reflux disease) Gout History of left heart catheterization (12/2019) History of prostate cancer History of radiation therapy History of transcatheter aortic valve replacement (TAVR) (08/01/18) Hydronephrosis, right Hypertension LAFB (left anterior fascicular block) Osteoarthritis Pacemaker Paroxysmal A-fib Prostate cancer RBBB Sleep apnea Stress incontinence Stress incontinence, male Surgical History AICD (automatic cardioverter/defibrillator) present (12/30/20) H/O aortic valve replacement History of back surgery Hx of heart artery stent Family History Mother Coronary artery disease involving bypass graft of transplanted heart Cancer Hypertension Social History marital status: number of children: 3 household members: none Previous occupational history: retired Smoking Status: Former smoker alcohol intake: never caffeine: Yes Meds Home Medications and Allergies Home Medications Medication Instructions Recorded Confirmed Type acetaminophen 325 mg tablet 650 mg PO Q4H PRN pain 06/13/22 01/24/23 History atorvastatin 40 mg tablet 40 mg PO BEDTIME 06/13/22 01/24/23 History calcium carbonate 215 mg calcium 500 mg DAILY 06/13/22 01/24/23 History (500 mg) chewable tablet (Antacid (calcium carbonate)) ferrous sulfate 325 mg (65 mg 325 mg PO DAILY 06/13/22 01/24/23 History iron) tablet furosemide 40 mg tablet 40 mg PO DAILY 06/13/22 01/24/23 History gabapentin 300 mg tablet 600 mg PO BID 06/13/22 01/24/23 History insulin glargine 100 unit/mL 10 unit SUBCUT QPM 06/13/22 01/24/23 History subcutaneous cartridge insulin lispro 100 unit/mL 1 sliding scale dose SUBCUT 06/13/22 01/24/23 History subcutaneous cartridge USEASDIRECTD lisinopril 2.5 mg tablet 2.5 mg PO DAILY 06/13/22 01/24/23 History metoprolol succinate 25 mg 12.5 mg PO DAILY 06/13/22 01/24/23 History tablet,extended release 24 hr pantoprazole 40 mg tablet,delayed 40 mg PO DAILY 06/13/22 01/24/23 History release pramipexole 0.5 mg tablet 0.5 mg PO DAILY 06/13/22 01/24/23 History ropinirole 1 mg tablet 1.5 mg PO BID 06/13/22 01/24/23 History sertraline 50 mg tablet 50 mg PO DAILY 06/13/22 01/24/23 History tolterodine 4 mg capsule,extended 4 mg PO DAILY 06/13/22 01/24/23 History release 24 hr hydroxyzine pamoate 25 mg capsule 25 mg PO PRN PRN Sleep 08/03/22 01/24/23 H istory (Vistaril) hydrocodone 5 mg-acetaminophen 325 2 tab PO Q6H PRN pain #30 tabs 10/18/22 01/24/23 Rx mg tablet bicalutamide 50 mg tablet 50 mg PO DAILY 12/14/22 01/24/23 History loperamide 2 mg capsule (Imodium 2 mg PO Q24H PRN Diarrhea 12/14/22 01/24/23 History A-D) ondansetron 4 mg disintegrating 8 mg PO Q6H PRN Nausea 12/14/22 01/24/23 History tablet ropinirole 2 mg tablet 2 mg PO BEDTIME 12/14/22 01/24/23 History spironolactone 25 mg tablet 25 mg PO BID 12/14/22 01/24/23 History Allergies Allergy/AdvReac Type Severity Reaction Status Date / Time crab Allergy Severe Deathly Verified 10/23/22 11:54 sick aspartame Allergy Unknown Verified 10/22/22 15:15 carbidopa Allergy Hallucinations, Verified 10/23/22 11:54 anxiety morphine AdvReac Nausea/vomi Verified 10/23/22 11:54 ting Review of Systems Constitutional Comments: fever, chills, weakness Cardiovascular Comments: w/o palpitations or chest pain Respiratory Comments: chronic shortness of breath with use of oxygen prn Gastrointestinal Comments: w/o pain Genitourinary Comments: burning on voiding Exam Vital Signs (past 8 hours): - 01/23/23 19:43 01/23/23 19:44 01/23/23 19:44 Temperature Pulse Rate 90 90 Respiratory Rate Blood Pressure 128/59 L Pulse Oximetry 93 93 Oxygen Delivery Method Nasal Cannula Oxygen Flow Rate 2 01/23/23 20:00 01/23/23 20:01 01/23/23 20:01 Temperature Pulse Rate 91 H 92 H Respiratory Rate Blood Pressure 124/60 Pulse Oximetry 94 95 Oxygen Delivery Method Oxygen Flow Rate 01/23/23 20:30 01/23/23 20:30 01/23/23 21:00 Temperature Pulse Rate 80 Respiratory Rate Blood Pressure 110/53 L 111/52 L Pulse Oximetry 95 Oxygen Delivery Method Nasal Cannula Oxygen Flow Rate 2 01/23/23 21:00 01/23/23 21:30 01/23/23 21:31 Temperature 100.3 F H Pulse Rate 79 75 76 Respiratory Rate 28 H 27 H 29 H Blood Pressure Pulse Oximetry 97 97 97 Oxygen Delivery Method Nasal Cannula Oxygen Flow Rate 2 01/23/23 21:31 01/23/23 22:17 01/23/23 22:00 Temperature 98.6 F Pulse Rate Respiratory Rate Blood Pressure 118/50 L 114/76 Pulse Oximetry Oxygen Delivery Method Oxygen Flow Rate 01/23/23 22:00 01/23/23 22:30 01/23/23 22:31 Temperature Pulse Rate 71 81 81 Respiratory Rate 29 H 28 H 28 H Blood Pressure Pulse Oximetry 97 98 98 Oxygen Delivery Method Nasal Cannula Nasal Cannula Oxygen Flow Rate 2 2 01/23/23 22:31 01/23/23 23:57 01/24/23 01:01 Temperature 100.4 F H Pulse Rate 86 Respiratory Rate 30 H Blood Pressure 143/65 H 150/55 H Pulse Oximetry 96 Oxygen Delivery Method Room Air Oxygen Flow Rate 2 01/23/23 19:47 Temperature 101 F H Pulse Rate 93 H Respiratory Rate 20 Blood Pressure 128/59 L Pulse Oximetry 93 Oxygen Delivery Method Room Air Oxygen Flow Rate Oxygen Delivery Method Room Air Oxygen Flow Rate 2 Const Other: laying in bed in no distress, appears tired HENNH Other: normocephalic Eyes Other: EOMI Neck Other: w/o JVD Resp Other: decreased breath sounds, not wheezy Back/Spine/Pelvis Other: chronic back pain Skin Other: no rashes Neuro Other: w/o focal weakness or numbness Extrem Other: w/o swelling Objective Labs 01/23/23 19:20 01/23/23 19:20 Labs: Laboratory Results - last 24 hr 01/23/23 01/23/23 01/23/23 19:20 19:20 19:20 WBC 23.2 H RBC 3.80 L Hgb 10.7 L Hct 32.1 L MCV 84.4 MCH 28.1 MCHC 33.3 RDW 15.8 H Plt Count 200 Neut % (Auto) 89.3 H Lymph % (Auto) 1.9 L Caroline % (Auto) 8.6 Eos % (Auto) 0.0 L Baso % (Auto) 0.2 Neut # (Auto) 45979 H Lymph # (Auto) 500 L Caroline # (Auto) 2000 H Eos # (Auto) 0 Baso # (Auto) 0 Sodium 133 L Potassium 4.1 Chloride 99 Carbon Dioxide 22 BUN 27 H Creatinine 2.01 H Estimated GFR 34 L BUN/Creatinine Ratio 13.4 Glucose 213 H Lactate 2.7 H Calcium 8.8 Magnesium 1.6 Total Bilirubin 1.1 AST 21 ALT 18 Alkaline Phosphatase 76 Total Creatine Kinase Troponin I Total Protein 7.1 Albumin 3.9 Globulin 3.2 Albumin/Globulin Ratio 1.2 Lipase 30 Procalcitonin Ur Bilirubin Confirm Urine RBC Urine WBC Ur Squamous Epith Cells Urine Bacteria Ur Culture Indicated? Chlamy pneumoniae PCR Adenovirus (PCR) B. pertussis DNA (PCR) B.parapertussis DNA PCR Coronavirus OC43 (PCR) Coronavirus HKU1 (PCR) Coronavirus 229E (PCR) SARS-CoV-2 (PCR) Coronavirus NL63 (PCR) Human Metapneumovir PCR Influenza Type A (PCR) Influenza Type B (PCR) M. pneumoniae (PCR) Parainfluenza 1 (PCR) Parainfluenza 2 (PCR) Parainfluenza 3 (PCR) Parainfluenza 4 (PCR) RSV (PCR) Entero/Rhino (PCR) 01/23/23 01/23/23 01/23/23 19:20 20:11 20:11 WBC RBC Hgb Hct MCV MCH MCHC RDW Plt Count Neut % (Auto) Lymph % (Auto) Caroline % (Auto) Eos % (Auto) Baso % (Auto) Neut # (Auto) Lymph # (Auto) Caroline # (Auto) Eos # (Auto) Baso # (Auto) Sodium Potassium Chloride Carbon Dioxide BUN Creatinine Estimated GFR BUN/Creatinine Ratio Glucose Lactate Calcium Magnesium Total Bilirubin AST ALT Alkaline Phosphatase Total Creatine Kinase 26 L Troponin I < 0.012 Total Protein Albumin Globulin Albumin/Globulin Ratio Lipase Procalcitonin 1.48 H Ur Bilirubin Confirm Urine RBC Urine WBC Ur Squamous Epith Cells Urine Bacteria Ur Culture Indicated? Chlamy pneumoniae PCR Not detected Adenovirus (PCR) Not detected B. pertussis DNA (PCR) Not detected B.parapertussis DNA PCR Not detected Coronavirus OC43 (PCR) Not detected Coronavirus HKU1 (PCR) Not detected Coronavirus 229E (PCR) Not detected SARS-CoV-2 (PCR) Not detected Coronavirus NL63 (PCR) Not detected Human Metapneumovir PCR Not detected Influenza Type A (PCR) Not detected Influenza Type B (PCR) Not detected M. pneumoniae (PCR) Not detected Parainfluenza 1 (PCR) Not detected Parainfluenza 2 (PCR) Not detected Parainfluenza 3 (PCR) Not detected Parainfluenza 4 (PCR) Not detected RSV (PCR) Not detected Entero/Rhino (PCR) Not detected 01/23/23 01/23/23 01/23/23 20:19 20:19 21:20 WBC RBC Hgb Hct MCV MCH MCHC RDW Plt Count Neut % (Auto) Lymph % (Auto) Caroline % (Auto) Eos % (Auto) Baso % (Auto) Neut # (Auto) Lymph # (Auto) Caroline # (Auto) Eos # (Auto) Baso # (Auto) Sodium Potassium Chloride Carbon Dioxide BUN Creatinine Estimated GFR BUN/Creatinine Ratio Glucose Lactate 1.4 Calcium Magnesium Total Bilirubin AST ALT Alkaline Phosphatase Total Creatine Kinase Troponin I Total Protein Albumin Globulin Albumin/Globulin Ratio Lipase Procalcitonin Ur Bilirubin Confirm Negative Urine RBC None seen Urine WBC 5-10/hpf H Ur Squamous Epith Cells None seen Urine Bacteria Moderate (10-30) H Ur Culture Indicated? Specimen cultured Chlamy pneumoniae PCR Adenovirus (PCR) B. pertussis DNA (PCR) B.parapertussis DNA PCR Coronavirus OC43 (PCR) Coronavirus HKU1 (PCR) Coronavirus 229E (PCR) SARS-CoV-2 (PCR) Coronavirus NL63 (PCR) Human Metapneumovir PCR Influenza Type A (PCR) Influenza Type B (PCR) M. pneumoniae (PCR) Parainfluenza 1 (PCR) Parainfluenza 2 (PCR) Parainfluenza 3 (PCR) Parainfluenza 4 (PCR) RSV (PCR) Entero/Rhino (PCR) Assessment & Plan Assessment and plan (1) Acute UTI: Status: Acute Plan: Rocephin Cultures pending Recurrent, Hx of prostate cancer, chronic incontinence - hold detrol, condom catheter as needed (2) Sepsis: Qualifiers: Sepsis acute organ dysfunction status: without acute organ dysfunction Status: Acute Plan: had IVFs in ED Improved vitals At risk for CHF exacerbation (3) Stress incontinence: Status: Acute (4) GERD (gastroesophageal reflux disease): Status: Acute Plan: PPI (5) Diabetes: Status: Acute Plan: WILFREDO burrows (6) Pacemaker: Problem details: Changed to AICD 12/30/20-Dr. Granger Status: Acute Plan: AICD (7) CAD (coronary artery disease): Status: Acute Plan: CHF / HTN - BB, statin, lisinopril - holding lasix / aldactone for now - monitored lytes Assessment & Plan narrative: 1. Sepsis / UTI - empiric Rocephin - IVFs given in ED, not hypotensive 2. CKD - stage 3 - monitored renal function 3. DM -
[2023-01-24 05:25] VITALS: BP 128/45; PULSE 77; RESP 24; TEMP 37.2; O2SAT 93
[2023-01-24 06:24] LABS: Add Manual Diff / Slide Review NO; Basophils Absolute Auto 200 /uL (0-100); Basophils Percent Auto 0.8 % (0-2); Eosinophils Absolute Auto 0 /uL (0-450); Eosinophils Percent Auto 0.1 % (2-4); Hematocrit 28.4 % (41-53); Hemoglobin 9.3 g/dL (13.5-17.5); Lymphocytes Absolute Auto 500 /uL (1100-4500); Mean Corpuscular HGB Conc 32.7 % (30-36); Mean Corpuscular Hemoglobin 27.9 PG (26-34); Mean Corpuscular Volume 85.4 fL (80-100); Monocytes Absolute Auto 1600 /uL (0-900); Monocytes Percent Auto 6.7 % (3-14); Neutrophils Absolute Auto 21500 /uL (1500-7000); Neutrophils Percent Auto 90.4 % (50-75); Platelet Count 155 X10^3/uL (150-400); Red Blood Cell Count 3.33 X10^6/uL (4.5-5.9); Red Cell Distribution Width 15.2 % (11.6-14.8); White Blood Cell Count 23.8 X10^3/uL (4.5-11.0)
[2023-01-24 06:33] LABS: BUN Creatinine Ratio 14.5 (6-22); Blood Urea Nitrogen 29 mg/dL (9-20); Carbon Dioxide 21 mmol/L (22-32); Chloride 104 mmol/L (98-107); Estimated Glomerular Filt Rate 34 mL/min (>60); Glucose 228 mg/dL (80-110); HEMOLYSIS < 15 (0-50); Potassium 4.1 mmol/L (3.4-5.1); Sodium 134 mmol/L (137-145)
[2023-01-24 06:39] LABS: NT-proBNP (BNP-Adult 18+) 2390 pg/mL (<125)
[2023-01-24] MEDS: HYDROCODONE/ACET 10/325 TABLET 1 TAB PO ×2 (06:41→14:11)
--- NOTE | 2023-01-24 07:17 | P.PN_ITS ---
Subjective Subjective Date Patient Seen: 01/24/23 Interval history: He is seen today to follow-up his sepsis and urinary tract infection. He received IV fluid in the ED to correct tachycardia and was not hypotensive per reports. 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 His creatinine is stable at 2.0. The hemoglobin has dropped from 10.7 down to 9.3. The white blood count has remained stable at 23.8. The glucose is 228 with a 2370 BNP. He wishes to be DNR. He remains on IV ceftriaxone. Exam Vital Signs (past 8 hours): - 01/23/23 23:57 01/24/23 01:01 01/24/23 05:25 Temperature 100.4 F H 99.0 F Pulse Rate 86 77 Respiratory Rate 30 H 24 Blood Pressure 150/55 H 128/45 L Pulse Oximetry 96 93 Oxygen Delivery Method Room Air Oxygen Flow Rate 2 0 Oxygen Delivery Method Room Air Oxygen Flow Rate 0 Narrative Exam Narrative: He is alert and oriented x3. No apparent distress. He looks quite weak on lying in bed without making much effort to mobilize. Heart is regular rate and rhythm without murmur Lungs are clear to auscultation bilaterally Extremities have no ankle edema Abdomen is obese, bowel sounds positive, nontender, no organomegaly. Objective Labs 01/24/23 05:40 01/24/23 05:40 Labs: Laboratory Results - last 24 hr 01/23/23 01/23/23 01/23/23 19:20 19:20 19:20 WBC 23.2 H RBC 3.80 L Hgb 10.7 L Hct 32.1 L MCV 84.4 MCH 28.1 MCHC 33.3 RDW 15.8 H Plt Count 200 Neut % (Auto) 89.3 H Lymph % (Auto) 1.9 L Collier % (Auto) 8.6 Eos % (Auto) 0.0 L Baso % (Auto) 0.2 Neut # (Auto) 37159 H Lymph # (Auto) 500 L Collier # (Auto) 2000 H Eos # (Auto) 0 Baso # (Auto) 0 Sodium 133 L Potassium 4.1 Chloride 99 Carbon Dioxide 22 BUN 27 H Creatinine 2.01 H Estimated GFR 34 L BUN/Creatinine Ratio 13.4 Glucose 213 H Lactate 2.7 H Calcium 8.8 Magnesium 1.6 Total Bilirubin 1.1 AST 21 ALT 18 Alkaline Phosphatase 76 Total Creatine Kinase Troponin I NT-Pro-B Natriuret Pep Total Protein 7.1 Albumin 3.9 Globulin 3.2 Albumin/Globulin Ratio 1.2 Lipase 30 Procalcitonin Ur Bilirubin Confirm Urine RBC Urine WBC Ur Squamous Epith Cells Urine Bacteria Ur Culture Indicated? Chlamy pneumoniae PCR Adenovirus (PCR) B. pertussis DNA (PCR) B.parapertussis DNA PCR Coronavirus OC43 (PCR) Coronavirus HKU1 (PCR) Coronavirus 229E (PCR) SARS-CoV-2 (PCR) Coronavirus NL63 (PCR) Human Metapneumovir PCR Influenza Type A (PCR) Influenza Type B (PCR) M. pneumoniae (PCR) Parainfluenza 1 (PCR) Parainfluenza 2 (PCR) Parainfluenza 3 (PCR) Parainfluenza 4 (PCR) RSV (PCR) Entero/Rhino (PCR) 01/23/23 01/23/23 01/23/23 19:20 20:11 20:11 WBC RBC Hgb Hct MCV MCH MCHC RDW Plt Count Neut % (Auto) Lymph % (Auto) Collier % (Auto) Eos % (Auto) Baso % (Auto) Neut # (Auto) Lymph # (Auto) Collier # (Auto) Eos # (Auto) Baso # (Auto) Sodium Potassium Chloride Carbon Dioxide BUN Creatinine Estimated GFR BUN/Creatinine Ratio Glucose Lactate Calcium Magnesium Total Bilirubin AST ALT Alkaline Phosphatase Total Creatine Kinase 26 L Troponin I < 0.012 NT-Pro-B Natriuret Pep Total Protein Albumin Globulin Albumin/Globulin Ratio Lipase Procalcitonin 1.48 H Ur Bilirubin Confirm Urine RBC Urine WBC Ur Squamous Epith Cells Urine Bacteria Ur Culture Indicated? Chlamy pneumoniae PCR Not detected Adenovirus (PCR) Not detected B. pertussis DNA (PCR) Not detected B.parapertussis DNA PCR Not detected Coronavirus OC43 (PCR) Not detected Coronavirus HKU1 (PCR) Not detected Coronavirus 229E (PCR) Not detected SARS-CoV-2 (PCR) Not detected Coronavirus NL63 (PCR) Not detected Human Metapneumovir PCR Not detected Influenza Type A (PCR) Not detected Influenza Type B (PCR) Not detected M. pneumoniae (PCR) Not detected Parainfluenza 1 (PCR) Not detected Parainfluenza 2 (PCR) Not detected Parainfluenza 3 (PCR) Not detected Parainfluenza 4 (PCR) Not detected RSV (PCR) Not detected Entero/Rhino (PCR) Not detected 01/23/23 01/23/23 01/23/23 20:19 20:19 21:20 WBC RBC Hgb Hct MCV MCH MCHC RDW Plt Count Neut % (Auto) Lymph % (Auto) Collier % (Auto) Eos % (Auto) Baso % (Auto) Neut # (Auto) Lymph # (Auto) Collier # (Auto) Eos # (Auto) Baso # (Auto) Sodium Potassium Chloride Carbon Dioxide BUN Creatinine Estimated GFR BUN/Creatinine Ratio Glucose Lactate 1.4 Calcium Magnesium Total Bilirubin AST ALT Alkaline Phosphatase Total Creatine Kinase Troponin I NT-Pro-B Natriuret Pep Total Protein Albumin Globulin Albumin/Globulin Ratio Lipase Procalcitonin Ur Bilirubin Confirm Negative Urine RBC None seen Urine WBC 5-10/hpf H Ur Squamous Epith Cells None seen Urine Bacteria Moderate (10-30) H Ur Culture Indicated? Specimen cultured Chlamy pneumoniae PCR Adenovirus (PCR) B. pertussis DNA (PCR) B.parapertussis DNA PCR Coronavirus OC43 (PCR) Coronavirus HKU1 (PCR) Coronavirus 229E (PCR) SARS-CoV-2 (PCR) Coronavirus NL63 (PCR) Human Metapneumovir PCR Influenza Type A (PCR) Influenza Type B (PCR) M. pneumoniae (PCR) Parainfluenza 1 (PCR) Parainfluenza 2 (PCR) Parainfluenza 3 (PCR) Parainfluenza 4 (PCR) RSV (PCR) Entero/Rhino (PCR) 01/24/23 01/24/23 05:40 05:40 WBC 23.8 H RBC 3.33 L Hgb 9.3 L Hct 28.4 L MCV 85.4 MCH 27.9 MCHC 32.7 RDW 15.2 H Plt Count 155 Neut % (Auto) 90.4 H Lymph % (Auto) 2.0 L Collier % (Auto) 6.7 Eos % (Auto) 0.1 L Baso % (Auto) 0.8 Neut # (Auto) 48092 H Lymph # (Auto) 500 L Collier # (Auto) 1600 H Eos # (Auto) 0 Baso # (Auto) 200 H Sodium 134 L Potassium 4.1 Chloride 104 Carbon Dioxide 21 L BUN 29 H Creatinine 2.00 H Estimated GFR 34 L BUN/Creatinine Ratio 14.5 Glucose 228 H Lactate Calcium 8.0 L Magnesium Total Bilirubin AST ALT Alkaline Phosphatase Total Creatine Kinase Troponin I NT-Pro-B Natriuret Pep 2390 H Total Protein Albumin Globulin Albumin/Globulin Ratio Lipase Procalcitonin Ur Bilirubin Confirm Urine RBC Urine WBC Ur Squamous Epith Cells Urine Bacteria Ur Culture Indicated? Chlamy pneumoniae PCR Adenovirus (PCR) B. pertussis DNA (PCR) B.parapertussis DNA PCR Coronavirus OC43 (PCR) Coronavirus HKU1 (PCR) Coronavirus 229E (PCR) SARS-CoV-2 (PCR) Coronavirus NL63 (PCR) Human Metapneumovir PCR Influenza Type A (PCR) Influenza Type B (PCR) M. pneumoniae (PCR) Parainfluenza 1 (PCR) Parainfluenza 2 (PCR) Parainfluenza 3 (PCR) Parainfluenza 4 (PCR) RSV (PCR) Entero/Rhino (PCR) PFSH Medical History (Updated 01/24/23 @ 02:12 by Mckinley Sousa MD) Androgen deprivation therapy Arthritis Atrial fibrillation CAD (coronary artery disease) Chronic anticoagulation Congestive heart failure Depression Diabetes DVT (deep venous thrombosis) Enlarged lymph node First degree AV block GERD (gastroesophageal reflux disease) Gout History of left heart catheterization (12/2019) History of prostate cancer History of radiation therapy History of transcatheter aortic valve replacement (TAVR) (08/01/18) Hydronephrosis, right Hypertension LAFB (left anterior fascicular block) Osteoarthritis Pacemaker Paroxysmal A-fib Prostate cancer RBBB Sleep apnea Stress incontinence Stress incontinence, male Surgical History AICD (automatic cardioverter/defibrillator) present (12/30/20) H/O aortic valve replacement History of back surgery Hx of heart artery stent Family History Mother Coronary artery disease involving bypass graft of transplanted heart Cancer Hypertension Social History marital status: number of children: 3 household members: none Previous occupational history: retired Smoking Status: Former smoker alcohol intake: never caffeine: Yes Assessment & Plan Assessment & Plan narrative: (1) Acute UTI: Rocephin IV day 1 Cultures pending Recurrent, Hx of prostate cancer, chronic incontinence - hold detrol, condom catheter as needed (2) Sepsis: ?Sepsis acute organ dysfunction status:?without acute organ dysfunction had IVFs in ED Improved vitals At risk for CHF exacerbation (3) Stress incontinence: ?Status:?Acute (4) GERD (gastroesophageal reflux disease): ?Status:?Acute PPI (5) Diabetes: ?Status:?Acute ?WILFREDO burrows (6) Pacemaker: Changed to AICD 12/30/20-Dr. Granger ?AICD (7) CAD (coronary artery disease): ? 8 - CHF / HTN - BB, statin, lisinopril - holding lasix / aldactone for now - monitored lytes 9 - CKD - stage 3 -creatinine 2.0 - monitored renal function 10 - DM type 2 -insulin correctional scale 11 - normocytic anemia - HGB dropped from 10.7 down to 9.3 on 01/24/23 -hemodilution/inflammatory block suspected
[2023-01-24 09:00] VITALS: BP 104/44; PULSE 78; RESP 17; TEMP 36.7; O2SAT 95
[2023-01-24] MEDS: INSULIN LISPRO 100 UNIT/ML 3ML VIAL SUBCUT ×4 (09:26→20:41)
[2023-01-24 09:27] VITALS: BP 104/44; PULSE 78
[2023-01-24] MEDS: METOPROLOL ER 25 MG TABLET 12.5 MG PO (09:27)
[2023-01-24] MEDS: GABAPENTIN 600 MG TABLET PO ×2 (09:27→20:42)
[2023-01-24] MEDS: ACETAMINOPHEN 325 MG TABLET 650 MG PO ×2 (09:27→17:33)
[2023-01-24] MEDS: HEPARIN 5,000 UNIT/ML VIAL 5000 UNIT SUBCUT ×2 (09:27→20:43)
[2023-01-24] MEDS: lisinopriL 5 MG TABLET 2.5 MG PO (09:27)
[2023-01-24] MEDS: INSULIN GLARGINE 100 UNIT/ML 3ML PEN 10 UNIT SUBCUT (09:28)
[2023-01-24 11:46] VITALS: BP 103/41; PULSE 61; RESP 17; TEMP 37; O2SAT 98
--- NOTE | 2023-01-24 14:39 | CM.DANOTE ---
DCP Assessment Note Patient is a 72yo male here under inpatient status with a UTI/sepsis. PCP Vandana COOKP Medicare and Medicaid CEO AND FOUNDER reviewed EMR. Per provider in rounds, it is unclear how long patient will be hospitalized. CEO AND FOUNDER entered room and introduced self and role. Patient was resting, sleepy, but A/Ox4 enough for a conversation with this author. Patient reports he lives at [facility]. His daughter and emergency contact, Arlet ([phone]) lives in [place]. Patient uses a FWW at baseline. Patient does not drive. Patient has been needing increasing care from [facility] due to progressing cancer. Patient reports he's been able to get up with his walker to use the bathroom while here and is near his current ambulatory baseline. Plan: patient will likely d/c back to [facility] when medically stable. Transport with [facility]. CM team will continue to follow closely for needs. JAYLEN Damon Discharge Planning/Care Management CM Discharge Assessment Start: 01/24/23 14:34 Freq: Status: Active Protocol: Document 01/24/23 14:34 (Rec: 01/24/23 14:38 [id number]) Discharge Planning Assessment Assigned Tunnel Form Placing Supervisor JAYLEN Robledo DPOA/Assigned Designee Name Arlet Bueno (daughter) Contact Information [phone] Advance Directives? Yes: POLST Advance Directives on File Yes History Provided By Patient,Medical Record Comment Patient was here end of December 11 Prior Living Arrangements Assisted Living Household Members none Type of transporation used prior to Relies on Others admit Facility Name Admitted From: [facility] Willing to Return to Facility? Yes Needs Assistance With Meal Prep,Managing Medications ,Home Chores / Shopping Comment [facility] has needed to assist more recently due to progression of pancreatic cancer DME Already Rented / Owned FWW / Walker,Cane Comment open to SNF, prefers [facility] Comment Back to [facility] when medically cleared Discharge Plan Assisted Living Facility Transportation Arrangement [facility] transport at d/c Referrals Initiated None needed Additional Comment At this time Whiteboard Updated in Patient Room with Yes name and ext. # of Tunnel Form Placing Supervisor Review Status In Process Next Review Type Continued Stay Review
[2023-01-24 16:29] VITALS: BP 103/39; PULSE 68; RESP 17; TEMP 37; O2SAT 100
[2023-01-24 20:00] VITALS: BP 108/44; PULSE 73; RESP 20; TEMP 37; O2SAT 95
[2023-01-24] MEDS: SENNOSIDES 8.6 MG TABLET 17.2 MG PO (20:40)
[2023-01-24] MEDS: PRAMIPEXOLE 0.25 MG TABLET 0.5 MG PO (20:42)
[2023-01-24] MEDS: cefTRIAXone 1,000 MG in SODIUM CHLORIDE 0.9% 100 ML 200 MG IV (20:43)
[2023-01-24] MEDS: ATORVASTATIN 20 MG TABLET 40 MG PO (20:43)
[2023-01-25] VITALS (11 sets, daily range): BP systolic 100–129; BP diastolic 43–67; PULSE 60–81; RESP 16–20; TEMP 36.6–39.2; O2SAT 94–97
[2023-01-25] MEDS: ACETAMINOPHEN 325 MG TABLET 650 MG PO ×3 (00:20→20:20)
[2023-01-25 08:18] LABS: Add Manual Diff / Slide Review NO; Basophils Absolute Auto 0 /uL (0-100); Basophils Percent Auto 0.2 % (0-2); Eosinophils Absolute Auto 0 /uL (0-450); Eosinophils Percent Auto 0.3 % (2-4); Hematocrit 28.1 % (41-53); Hemoglobin 9.2 g/dL (13.5-17.5); Lymphocytes Absolute Auto 500 /uL (1100-4500); Lymphocytes Percent Auto 4.2 % (25-40); Mean Corpuscular HGB Conc 32.9 % (30-36); Mean Corpuscular Volume 85.2 fL (80-100); Monocytes Absolute Auto 900 /uL (0-900); Monocytes Percent Auto 6.9 % (3-14); Neutrophils Absolute Auto 11400 /uL (1500-7000); Neutrophils Percent Auto 88.4 % (50-75); Platelet Count 149 X10^3/uL (150-400); Red Blood Cell Count 3.29 X10^6/uL (4.5-5.9); Red Cell Distribution Width 15.5 % (11.6-14.8); White Blood Cell Count 12.9 X10^3/uL (4.5-11.0)
[2023-01-25 08:30] LABS: BUN Creatinine Ratio 16.7 (6-22); Blood Urea Nitrogen 36 mg/dL (9-20); Calcium 8.3 mg/dL (8.4-10.2); Carbon Dioxide 23 mmol/L (22-32); Chloride 101 mmol/L (98-107); Estimated Glomerular Filt Rate 32 mL/min (>60); Glucose 161 mg/dL (80-110); HEMOLYSIS < 15 (0-50); Magnesium 1.9 mg/dL (1.6-2.3); Potassium 4.1 mmol/L (3.4-5.1); Sodium 133 mmol/L (137-145)
[2023-01-25] MEDS: ONDANSETRON 4 MG ODT PO (08:30)
[2023-01-25] MEDS: HYDROCODONE/ACET 10/325 TABLET 1 TAB PO (08:30)
[2023-01-25] MEDS: INSULIN LISPRO 100 UNIT/ML 3ML VIAL SUBCUT ×4 (08:31→20:26)
[2023-01-25] MEDS: METOCLOPRAMIDE 10 MG/2 ML INJ 5 MG IV ×2 (10:01→20:22)
[2023-01-25] MEDS: GABAPENTIN 600 MG TABLET PO ×2 (11:08→20:20)
[2023-01-25] MEDS: HEPARIN 5,000 UNIT/ML VIAL 5000 UNIT SUBCUT ×2 (11:08→20:21)
[2023-01-25] MEDS: INSULIN GLARGINE 100 UNIT/ML 3ML PEN 10 UNIT SUBCUT (11:08)
[2023-01-25] MEDS: lisinopriL 5 MG TABLET 2.5 MG PO (11:09)
[2023-01-25] MEDS: METOPROLOL ER 25 MG TABLET 12.5 MG PO (11:09)
--- NOTE | 2023-01-25 11:19 | CM.DPC ---
Addendum entered by JAYLEN Damon 01/25/23 14:37: RUGBY UNION FOOTBALLER lvm with Ina at [facility] to inform them of the d/c timeline. No response at this time, continue to follow. SL Original Note: DCP Continued: Per provider in rounds, patient likely to d/c tomorrow or Wednesday. RUGBY UNION FOOTBALLER LVM with [facility] to inform them of the d/c timeline. RUGBY UNION FOOTBALLER updated patient. Patient reports being in verbal agreement to return to [place]. Plan: patient will d/c back home to [facility], transport with facility, when medically stable, potentially 8.8.23 or 8.9.23. CM team will continue to follow closely. JAYLEN Damon
--- NOTE | 2023-01-25 13:38 | PM.PN.1 ---
Subjective Subjective Interval history: 72 M with multiple medical comorbidities, nephrostomy tubes admitted with UTI. Continues to feel nauseous today with nonspecific abdominal discomfort. Febrile to 102 overnight. Exam Vital Signs (past 8 hours): - 01/25/23 08:00 01/25/23 11:09 01/25/23 11:09 Temperature 98.2 F Pulse Rate 72 72 72 Respiratory Rate 18 Blood Pressure 129/49 L 100/44 L 100/44 L Pulse Oximetry 97 Oxygen Delivery Method Oxygen Flow Rate 0 01/25/23 09:45 01/25/23 12:00 Temperature 98.7 F Pulse Rate 70 Respiratory Rate 16 Blood Pressure 123/55 L Pulse Oximetry 95 Oxygen Delivery Method Room Air Oxygen Flow Rate Oxygen Delivery Method Room Air Oxygen Flow Rate 0 Narrative Exam Narrative: He is alert and oriented x3. No apparent distress. He looks quite weak on lying in bed without making much effort to mobilize. Heart is regular rate and rhythm without murmur Lungs are clear to auscultation bilaterally Extremities have no ankle edema Abdomen is obese, bowel sounds positive, nontender, no organomegaly. Objective Labs 01/25/23 08:07 01/25/23 08:07 Labs: Laboratory Results - last 24 hr 01/25/23 01/25/23 08:07 08:07 WBC 12.9 H RBC 3.29 L Hgb 9.2 L Hct 28.1 L MCV 85.2 MCH 28.0 MCHC 32.9 RDW 15.5 H Plt Count 149 L Neut % (Auto) 88.4 H Lymph % (Auto) 4.2 L [place] % (Auto) 6.9 Eos % (Auto) 0.3 L Baso % (Auto) 0.2 Neut # (Auto) 80733 H Lymph # (Auto) 500 L [place] # (Auto) 900 Eos # (Auto) 0 Baso # (Auto) 0 Sodium 133 L Potassium 4.1 Chloride 101 Carbon Dioxide 23 BUN 36 H Creatinine 2.15 H Estimated GFR 32 L BUN/Creatinine Ratio 16.7 Glucose 161 H Calcium 8.3 L Magnesium 1.9 PFSH Medical History (Updated 01/24/23 @ 02:12 by Mckinley Sousa MD) Androgen deprivation therapy Arthritis Atrial fibrillation CAD (coronary artery disease) Chronic anticoagulation Congestive heart failure Depression Diabetes DVT (deep venous thrombosis) Enlarged lymph node First degree AV block GERD (gastroesophageal reflux disease) Gout History of left heart catheterization (12/2019) History of prostate cancer History of radiation therapy History of transcatheter aortic valve replacement (TAVR) (08/01/18) Hydronephrosis, right Hypertension LAFB (left anterior fascicular block) Osteoarthritis Pacemaker Paroxysmal A-fib Prostate cancer RBBB Sleep apnea Stress incontinence Stress incontinence, male Surgical History AICD (automatic cardioverter/defibrillator) present (12/30/20) H/O aortic valve replacement History of back surgery Hx of heart artery stent Family History Mother Coronary artery disease involving bypass graft of transplanted heart Cancer Hypertension Social History marital status: number of children: 3 household members: none Previous occupational history: retired Smoking Status: Former smoker alcohol intake: never caffeine: Yes Assessment & Plan Assessment & Plan narrative: (1) Acute UTI: Rocephin IV day 1 Urine culture with E. coli Recurrent, Hx of prostate cancer, chronic incontinence - hold detrol, condom catheter as needed Fever to 102 overnight, if continues to be febrile get abdominal imaging to rule out obstruction. (2) Sepsis ruled out SOFA score <2. At baseline creatinine without GLENN. (3) Stress incontinence: ?Status:?Acute (4) GERD (gastroesophageal reflux disease): ?Status:?Acute PPI (5) Diabetes: ?Status:?Acute ?WILFREDO burrows (6) Pacemaker: Changed to AICD 12/30/20-Dr. Granger ?MELITON (7) CAD (coronary artery disease): - continue home medications ? 8 - CHF / HTN - BB, statin, lisinopril - holding lasix / aldactone for now - monitored lytes 9 - CKD - stage 3 -creatinine 2.0 - monitoring renal function 10 - DM type 2 -insulin correctional scale 11 - normocytic anemia - HGB dropped from 10.7 down to 9.3 on 01/24/23 -hemodilution/inflammatory block suspected Code: DNR, surrogate daughter Dispo: Inpatient, likely return to assisted living when afebrile in 1-2 days. Additional history obtained from overnight and previous hospitalist. I have reviewed patient's culture data, labs, and ordered follow up testing and labs as noted above. Reviewed patient's previous and current documentation. Discussed with patient and care management staff.
[2023-01-25] MEDS: cefTRIAXone 1,000 MG in SODIUM CHLORIDE 0.9% 100 ML 200 MG IV (20:18)
[2023-01-25] MEDS: ATORVASTATIN 20 MG TABLET 40 MG PO (20:20)
[2023-01-25] MEDS: PRAMIPEXOLE 0.25 MG TABLET 0.5 MG PO (20:20)
[2023-01-25] MEDS: TEMAZEPAM 15 MG CAPSULE PO (22:26)
[2023-01-26] VITALS (8 sets, daily range): BP systolic 125–144; BP diastolic 40–57; PULSE 64–82; RESP 16–18; TEMP 35.6–37.1; O2SAT 94–99; BMI 29.5
[2023-01-26] MEDS: HYDROCODONE/ACET 10/325 TABLET 1 TAB PO ×4 (00:58→23:37)
[2023-01-26] MEDS: GABAPENTIN 600 MG TABLET PO ×2 (08:01→21:52)
[2023-01-26] MEDS: HEPARIN 5,000 UNIT/ML VIAL 5000 UNIT SUBCUT ×2 (08:01→21:53)
[2023-01-26] MEDS: ERTAPENEM 1 GM in SODIUM CHLORIDE 0.9% 100 ML IV (08:01)
[2023-01-26] MEDS: lisinopriL 5 MG TABLET 2.5 MG PO (08:01)
[2023-01-26] MEDS: METOPROLOL ER 25 MG TABLET 12.5 MG PO (08:06)
[2023-01-26] MEDS: INSULIN GLARGINE 100 UNIT/ML 3ML PEN 10 UNIT SUBCUT (08:23)
[2023-01-26] MEDS: INSULIN LISPRO 100 UNIT/ML 3ML VIAL SUBCUT ×3 (08:23→17:00)
[2023-01-26] MEDS: ONDANSETRON 4 MG ODT PO (08:57)
--- NOTE | 2023-01-26 09:56 | PC.NURSE ---
Lab called and patient has esbl in his urine. He is on contact precautions now. Complained of nausea and given zofran. Ate half of his breakfast and is tolerating some water.
[2023-01-26] MEDS: METOCLOPRAMIDE 10 MG/2 ML INJ 5 MG IV (11:32)
--- NOTE | 2023-01-26 12:59 | PM.PN.1 ---
Subjective Subjective Interval history: 72 M admitted with acute cystitis, urine cultures now growing ESBL E. coli, changed to ertapenem today. Will need 7 days of therapy starting today. He continues to feel nauseous, though is improved slightly today. Exam Vital Signs (past 8 hours): - 01/26/23 08:01 01/26/23 08:06 01/26/23 08:00 Temperature 97.1 F L Pulse Rate 70 69 82 Respiratory Rate 17 Blood Pressure 133/43 L 133/43 L 133/43 L Pulse Oximetry 98 Oxygen Flow Rate 0 01/26/23 12:00 Temperature 97.0 F L Pulse Rate 78 Respiratory Rate 17 Blood Pressure 144/48 H Pulse Oximetry 99 Oxygen Flow Rate 0 Oxygen Delivery Method Room Air Oxygen Flow Rate 0 Narrative Exam Narrative: He is alert and oriented x3. No apparent distress. He looks quite weak on lying in bed, able to move around in bed okay today with a bit more strength Heart is regular rate and rhythm without murmur Lungs are clear to auscultation bilaterally Abd is S NT ND, nephrostomy tube in place without surrounding erythema, warmth, or swelling. Extremities have no ankle edema Objective Labs 01/25/23 08:07 01/25/23 08:07 [facility] Medical History (Updated 01/24/23 @ 02:12 by Mckinley Sousa MD) Androgen deprivation therapy Arthritis Atrial fibrillation CAD (coronary artery disease) Chronic anticoagulation Congestive heart failure Depression Diabetes DVT (deep venous thrombosis) Enlarged lymph node First degree AV block GERD (gastroesophageal reflux disease) Gout History of left heart catheterization (12/2019) History of prostate cancer History of radiation therapy History of transcatheter aortic valve replacement (TAVR) (08/01/18) Hydronephrosis, right Hypertension LAFB (left anterior fascicular block) Osteoarthritis Pacemaker Paroxysmal A-fib Prostate cancer RBBB Sleep apnea Stress incontinence Stress incontinence, male Surgical History AICD (automatic cardioverter/defibrillator) present (12/30/20) H/O aortic valve replacement History of back surgery Hx of heart artery stent Family History Mother Coronary artery disease involving bypass graft of transplanted heart Cancer Hypertension Social History marital status: number of children: 3 household members: none Previous occupational history: retired Smoking Status: Former smoker alcohol intake: never caffeine: Yes Assessment & Plan Assessment & Plan narrative: (1) Acute cystitis secondary to ESBL E. coli with chronic nephrostomy in place. Fever improving, but not on adequate therapy until 01/26. Continue ertapenem for now. Will need 7 days of therapy with last dose on 02/01 (to end 02/02). Midline ordered with probable SNF placement to complete antibiotic therapy after symptom improvement. (2) Sepsis ruled out SOFA score <2. At baseline creatinine without GLENN. (3) Stress incontinence: ?Status:?Acute (4) GERD (gastroesophageal reflux disease): ?Status:?Acute PPI (5) Diabetes: ?Status:?Acute ?WILFREDO burrows (6) Pacemaker: Changed to AICD 12/30/20-Dr. Granger ?AICD (7) CAD (coronary artery disease): - continue home medications ? 8 - CHF / HTN - BB, statin, lisinopril - holding lasix / aldactone for now - monitored lytes 9 - CKD - stage 3 -creatinine 2.0 - monitoring renal function 10 - DM type 2 -insulin correctional scale 11 - normocytic anemia - HGB dropped from 10.7 down to 9.3 on 01/24/23 -hemodilution/inflammatory block suspected Code: DNR, surrogate daughter Dispo: Inpatient, likely SNF for antibiotics then return to assisted living.
--- NOTE | 2023-01-26 14:24 | CM.DPC ---
Addendum entered by JAYLEN Damon 01/26/23 15:54: Jennifer from [facility] called to report they received the auth. Transportation tentatively set up for 1100 tomorrow. MACHINING DEPARTMENT SUPERVISOR updated provider. Plan: pending patient is medically stable, patient will d/c tomorrow to [facility]. CM team follow closely. DAVIN Original Note: DCP continued: MACHINING DEPARTMENT SUPERVISOR reviewed EMR. Per provider in rounds, patient will need 7 days of IV antibiotics. Patient will be getting a midline today. MACHINING DEPARTMENT SUPERVISOR entered room and reintroduced self and role. Patient resting in bed and appeared A/Ox4. Patient reported his first preference is [facility] but would be open to [facility] or [facility] if needed. Patient had concerns about getting clothes and his walker, but said that he was going to call his daughter and have her bring them to him. Jennifer at [facility] reviewed patient and reported can accept patient/antibiotic if get auth. Jennifer reports their likelihood of getting an auth is higher with a PT/OT eval available. Selena from [facility] also reviewing patient. They should be able to provide antibiotic. Requested PT/OT notes for auth as well. Melita from [facility] also reviewing patient. Plan: patient will d/c to a SNF for 7 days of iv antibiotics. [facility], [facility], and [facility] reviewing. Currently waiting on auth. Waiting on additional pt/ot notes for supplemental information to obtain auth. CM team will continue to follow closely. JAYLEN Damon
--- NOTE | 2023-01-26 16:37 | PT-IP ANOTE ---
pt not seen for PT today due to high caseload. will check tomorrow.
[2023-01-26] MEDS: PRAMIPEXOLE 0.25 MG TABLET 0.5 MG PO (21:52)
[2023-01-26] MEDS: SENNOSIDES 8.6 MG TABLET 17.2 MG PO (21:52)
[2023-01-26] MEDS: ATORVASTATIN 20 MG TABLET 40 MG PO (21:52)
[2023-01-27] VITALS: BP 139/54; PULSE 64; RESP 18; TEMP 36.4; O2SAT 93
[2023-01-27 04:55] VITALS: BP 139/61; PULSE 65; RESP 18; TEMP 36.5; O2SAT 97
[2023-01-27 06:28] LABS: Add Manual Diff / Slide Review NO; Basophils Absolute Auto 0 /uL (0-100); Basophils Percent Auto 0.6 % (0-2); Eosinophils Absolute Auto 100 /uL (0-450); Eosinophils Percent Auto 1.4 % (2-4); Hematocrit 27.3 % (41-53); Hemoglobin 9.2 g/dL (13.5-17.5); Lymphocytes Absolute Auto 700 /uL (1100-4500); Mean Corpuscular HGB Conc 33.5 % (30-36); Mean Corpuscular Hemoglobin 28.3 PG (26-34); Mean Corpuscular Volume 84.5 fL (80-100); Monocytes Absolute Auto 500 /uL (0-900); Monocytes Percent Auto 6.8 % (3-14); Neutrophils Absolute Auto 5400 /uL (1500-7000); Neutrophils Percent Auto 81.2 % (50-75); Platelet Count 155 X10^3/uL (150-400); Red Blood Cell Count 3.23 X10^6/uL (4.5-5.9); Red Cell Distribution Width 15.3 % (11.6-14.8); White Blood Cell Count 6.7 X10^3/uL (4.5-11.0)
[2023-01-27 06:52] LABS: Alanine Aminotransferase 19 IU/L (<50); Albumin 3.3 g/dL (3.5-5.0); Albumin Globulin Ratio 1.1 (1.0-2.8); Alkaline Phosphatase 63 U/L (38-126); Aspartate Aminotransferase 21 IU/L (17-59); BUN Creatinine Ratio 16.7 (6-22); Bilirubin Total 0.3 mg/dL (0.2-1.3); Blood Urea Nitrogen 29 mg/dL (9-20); Calcium 8.4 mg/dL (8.4-10.2); Carbon Dioxide 25 mmol/L (22-32); Chloride 105 mmol/L (98-107); Estimated Glomerular Filt Rate 41 mL/min (>60); Globulin 2.9 g/dL (1.7-4.1); Glucose 146 mg/dL (80-110); HEMOLYSIS < 15 (0-50); Magnesium 2.1 mg/dL (1.6-2.3); Sodium 138 mmol/L (137-145); Total Protein 6.2 g/dL (6.3-8.2)
[2023-01-27] MEDS: ERTAPENEM 1 GM in SODIUM CHLORIDE 0.9% 100 ML IV (07:45)
[2023-01-27 08:00] VITALS: BP 133/56; PULSE 56; RESP 16; TEMP 36.4; O2SAT 94
[2023-01-27 08:04] VITALS: BP 133/56; PULSE 60
[2023-01-27] MEDS: GABAPENTIN 600 MG TABLET PO (08:04)
[2023-01-27] MEDS: lisinopriL 5 MG TABLET 2.5 MG PO (08:04)
[2023-01-27] MEDS: HYDROCODONE/ACET 10/325 TABLET 1 TAB PO (08:04)
[2023-01-27 08:05] VITALS: BP 133/56; PULSE 60
[2023-01-27] MEDS: METOPROLOL ER 25 MG TABLET 12.5 MG PO (08:05)
[2023-01-27] MEDS: HEPARIN 5,000 UNIT/ML VIAL 5000 UNIT SUBCUT (08:07)
--- NOTE | 2023-01-27 09:30 | P.DS_ITS ---
History of Present Illness History of Present Illness Chief complaint: Resp Distress Narrative: Per H&P: Presents to ED after 24 hours of fever, chills, burning on urination, generalized weakness. Diagnosed with sepsis and UTI. Discharge Providers Provider Date of admission: 01/23/23 22:21 Discharge Date: 01/27/23 Primary care physician: Vandana Hart MD Consults: 01/26/23 12:59 Consult to Occupational Therapy Evaluate & Treat Comment: Physician Instructions: Evaluate and treat Consult to Physical Therapy Evaluate & Treat Comment: Physician Instructions: Evaluate and Treat Discharge provider: Estee Serrano MD Summary Hospital Course Discharge Diagnosis: (1) Acute cystitis secondary to ESBL E. coli with chronic nephrostomy in place. (2) Sepsis ruled out (3) Stress incontinence (4) GERD (gastroesophageal reflux disease): (5) Diabetes (6) Pacemaker/AICD (7) CAD (coronary artery disease): (8) CHF / HTN (9) CKD, stage 3 (10) DM type 2 (11) normocytic anemia Hospital Course: Pt resides at [facility]. He presented to the ED w/UTI sxs in the setting of a chronic nephrostomy tube and CKD3. He was placed on empiric abx. He was found via urine cx to have ESBL E Coli UTI and was transitioned to once daily ertapenem. Due to the complexities of his care, need for contact precautions and IV abx, it was arranged for him to transfer to [facility] at d/c for ongoing IV abx, as well as PT/OT. When his abx are complete, and he is back to his baseline, he will return to [facility]. Pt is d/c'd in stable condition. He was afebrile w/stable vital signs. Status at Discharge Cognitive/behavioral status at discharge: at baseline, oriented Overall status at discharge: patient is progressing back to baseline Time Spent with Patient Time spent: Greater than 30 minutes Exam Vital Signs (past 8 hours): Oxygen Delivery Method Room Air Oxygen Flow Rate 0 Const General: well developed, No acute distress and ill appearing HENFL Head: normal to inspection, normocephalic and atraumatic Resp Other: CTAB Cardio Other: RRR, no M/R/G GI Other: soft, NT/ND, BTx4 Skin Other: warm, dry, pale, no rash Objective Labs 01/27/23 05:45 01/27/23 05:45 [facility] Medical History (Updated 01/24/23 @ 02:12 by Mckinley Sousa MD) Androgen deprivation therapy Arthritis Atrial fibrillation CAD (coronary artery disease) Chronic anticoagulation Congestive heart failure Depression Diabetes DVT (deep venous thrombosis) Enlarged lymph node First degree AV block GERD (gastroesophageal reflux disease) Gout History of left heart catheterization (12/2019) History of prostate cancer History of radiation therapy History of transcatheter aortic valve replacement (TAVR) (08/01/18) Hydronephrosis, right Hypertension LAFB (left anterior fascicular block) Osteoarthritis Pacemaker Paroxysmal A-fib Prostate cancer RBBB Sleep apnea Stress incontinence Stress incontinence, male Surgical History AICD (automatic cardioverter/defibrillator) present (12/30/20) H/O aortic valve replacement History of back surgery Hx of heart artery stent Family History Mother Coronary artery disease involving bypass graft of transplanted heart Cancer Hypertension Social History marital status: number of children: 3 household members: none Previous occupational history: retired Smoking Status: Former smoker alcohol intake: never caffeine: Yes Discharge Plan Discharge Plan Patient Disposition: SNF Transfer to: [facility] Under care of provider: Facility Discharge orders & Medications Prescriptions: New ertapenem 1 gram Recon Soln 1 gm IV Q24H 5 Days Qty: 5 0RF sennosides [senna] 8.6 mg Tablet 17.2 mg PO BEDTIME Qty: 30 0RF Continued acetaminophen 325 mg Tablet 650 mg PO Q4H PRN (Reason: pain) atorvastatin 40 mg Tablet 40 mg PO BEDTIME Antacid (calcium carbonate) 215 mg calcium (500 mg) Tablet,Chewable 500 mg DAILY furosemide 40 mg Tablet 40 mg PO DAILY gabapentin 300 mg Tablet 600 mg PO BID ferrous sulfate 325 mg (65 mg iron) Tablet 325 mg PO DAILY metoprolol succinate 25 mg Tablet Extended Release 24 Hr 12.5 mg PO DAILY Rx Instructions: Hold for SBP < 100, HR < 60 lisinopril 2.5 mg Tablet 2.5 mg PO DAILY insulin glargine 100 unit/mL Cartridge 10 unit SUBCUT QPM pramipexole 0.5 mg Tablet 0.5 mg PO DAILY pantoprazole 40 mg Tablet,Delayed Release (Dr/Ec) 40 mg PO DAILY ropinirole 1 mg Tablet 1.5 mg PO BID tolterodine 4 mg Capsule,Extended Release 24hr 4 mg PO DAILY sertraline 50 mg Tablet 50 mg PO DAILY insulin lispro 100 unit/mL Cartridge 1 sliding scale dose SUBCUT USEASDIRECTD Patient Comments: No coverage if CBG less than 150 spironolactone 25 mg tablet 25 mg PO BID ropinirole 2 mg tablet 2 mg PO BEDTIME bicalutamide 50 mg tablet 50 mg PO DAILY Rx Instructions: Prostate CA ondansetron 4 mg tablet,disintegrating 8 mg PO Q6H PRN (Reason: Nausea) hydrocodone-acetaminophen 5-325 mg tablet 2 tab PO Q6H PRN (Reason: pain) Qty: 30 0RF hydroxyzine pamoate [Vistaril] 25 mg capsule 25 mg PO PRN PRN (Reason: Sleep) Discontinued loperamide [Imodium A-D] 2 mg Capsule 2 mg PO Q24H PRN (Reason: Diarrhea) Rx Instructions: administer after each loose stool until symptoms controlled; do not exceed 8 mg per 24 hrs Follow up/Referrals: Vandana Hart MD [Primary Care Provider] - Discharge Health Status Precautions: Contact Diet/Activity/Treatments Diet: Carb-consistent/Diabetic Liquid consistency: Normal/Thin Food texture: Regular Activity: As tolerated; Per PT/OT Oxygen: N/A Special Rehabilitation Services Reason for rehabilitation: Other Rehab type: Physical therapy and Occupational therapy Visit Report/Discharge Packet Instructions: DI for Extended Spectrum Beta-Lactamase Infection Stand Alone Forms: Patient Portal/API Discharge Data Primary Care Provider: Vandana Hart Discharges patient from system. Discharge Date/Time: 01/27/23 11:05
--- NOTE | 2023-01-27 10:18 | OT.IPNOTE ---
Pt being discharged to skilled rehab today, defer to skilled OT for OT goals.
--- NOTE | 2023-01-27 10:44 | PT-IP ANOTE ---
At rounds, the attending provider stated that pt is d/cd and therapy does not need to evaluate the patient. D/c PT.
--- NOTE | 2023-01-27 11:13 | CM.DPC ---
DCP Continued: INFORMATION TECHNOLOGY AUDITOR reviewed EMR. Provider reports patient is good to [facility]. Ashlyn [facility] reports they are able to accept today at 1100. INFORMATION TECHNOLOGY AUDITOR updated patient. Patient kindly requested someone from [facility] bring over some clothes and his phone/lead electrician for him either here or to [facility]. INFORMATION TECHNOLOGY AUDITOR lvms with Roland (director emergency) at [facility]. no response. INFORMATION TECHNOLOGY AUDITOR informed Ashlyn of patient's request. Ashlyn reported she would get ahold of Juan/someone to bring over his belongings for him. INFORMATION TECHNOLOGY AUDITOR updated patient. He appeared appreciative. INFORMATION TECHNOLOGY AUDITOR updated TEACHERS' AIDE. INFORMATION TECHNOLOGY AUDITOR updated nursing staff and provided nursing report number. INFORMATION TECHNOLOGY AUDITOR completed PASRR and gave it to CM Downstream Biomanufacturing Technician Lia. Lia kindly faxed d/c summary/copy of med list/PASRR/order to [facility]. INFORMATION TECHNOLOGY AUDITOR updated [facility] and [facility] they no longer need to review. Plan: patient will d/c today at 11am to [facility]. Shop And Alteration Tailor from [facility] will bring over patient's belongings to [facility]. CM team will continue to follow closely. JAYLEN Damon
--- NOTE | 2023-01-28 20:09 | PC.NURSE ---
Received a call from lab about this patient and positive blood cultures...Gram + Bacilli. Gave information to [facility] nurse Luli Cueto. Patient was discharged from on 01/27/23.
== END 2023-01-27 11:05 | DRG 699 ==
LOC: ED 21:27 → AC 22:21
PROVIDERS: Internal Medicine; Admitting Provider Internal Medicine; Emergency Provider Emergency Medicine; PCP Internal Medicine; Referring Provider Emergency Medicine; Visit Provider Internal Medicine
DX: T83.593A Infection and inflammatory reaction due to other urinary stents, initial encounter (principal); I13.0 Hypertensive heart and chronic kidney disease with heart failure and stage 1 through stage 4 chronic kidney disease, or unspecified chronic kidney disease; N30.00 Acute cystitis without hematuria; I25.10 Atherosclerotic heart disease of native coronary artery without angina pectoris; K21.9 Gastro-esophageal reflux disease without esophagitis; E11.22 Type 2 diabetes mellitus with diabetic chronic kidney disease; N18.30 Chronic kidney disease, stage 3 unspecified; I50.9 Heart failure, unspecified; B96.20 Unspecified Escherichia coli [E. coli] as the cause of diseases classified elsewhere; N39.3 Stress incontinence (female) (male); D64.9 Anemia, unspecified; F32.A Depression, unspecified; Z79.4 Long term (current) use of insulin; Z95.810 Presence of automatic (implantable) cardiac defibrillator; Z66 Do not resuscitate; Z87.891 Personal history of nicotine dependence
CPT/HCPCS: 36415; 71045; 74018; 80048; 80053; 81003; 81015; 82550; 82962; 83605; 83690; 83735; 83880; 84145; 84484; 85025; 85610; 87040; 87077; 87086; 87186; 87633; 93005; 96365; 96375; 99285; C9113; J0696; J1335; J1644; J1815; J2405; J2765

== ENCOUNTER 2023-02-04 07:06 | Emergency (ER) | payer MEDICARE, MEDICAID, SELFPAY ==
[2023-01-26 13:42] VITALS: BMI 29.5
[2023-02-04] VITALS (15 sets, daily range): BP systolic 116–127; BP diastolic 56–61; PULSE 68–85; RESP 10–34; TEMP 36.8; O2SAT 91–95; BMI 33.3
--- NOTE | 2023-02-04 07:27 | DI.RAD.S_ITS ---
PROCEDURE: XR HIP W PEL IF DONE LT 2V INDICATIONS: fall, left hip pain TECHNIQUE: AP pelvis with lateral view(s) of the left hip(s). COMPARISON: [facility], CT, CT CHEST ABD PEL W CON, 02/04/2023, 7:43. FINDINGS: Bones: No fractures or dislocations. Pelvic ring appears intact. No suspicious bony lesions. Soft tissues: The visualized bowel gas pattern is normal. No suspicious soft tissue calcifications. IMPRESSION: No acute abnormality of the pelvis or left hip. Dictated by: Shady Jones M.D. on 02/04/2023 at 8:34 Approved by: Shady Jones M.D. on 02/04/2023 at 8:36
--- NOTE | 2023-02-04 07:27 | ED_ITS ---
HPI - Trauma General Chief Complaint: Trauma Stated Complaint: fall, general pain Time Seen by Provider: 02/04/23 07:19 Source: patient, EMS, RN notes reviewed and old records reviewed Mode of arrival: EMS Limitations: no limitations History of Present Illness HPI narrative: 72-year-old male former smoker, history of pacemaker, prior aortic valve replacement on warfarin, prostate cancer, chronic kidney disease, CHF with intermittent use of oxygen, possible Parkinson's, insulin-dependent diabetes who presents with fall versus syncopal episode. Patient states he was transferring from bed to the wheelchair to go to the bathroom. He states he had to have bowel movement. He states next thing he knew he woke up on the floor. He states he did hit his head, he states he has left rib and abdominal pain. Denie s any neck pain. Denies any back pain other than his usual back discomfort. Patient states he does not recall feeling like he was going to pass out. He does not recall tripping or falling but has fallen 2 other times in the past 2 days. He states the 1st time his feet got stuck on the floor when he was trying to get up from his wheelchair the 2nd time he states he was standing at a closet felt a little lightheaded and then when trying to walk to the wheelchair feet got stuck and he fell again. Patient denies any dizziness. No vision changes. He has left-sided chest pain with movement. He thinks he might have hurt his ribs on the 2nd fall and then her thumb again today. He also notes some left- sided abdominal pain. He does not note any bruising or skin changes. No shortness a breath. Denies any nausea or vomiting. Denies any recent diarrhea or constipation. States he did stool in his brief because he was headed for the bathroom but does not think he had any incontinence. Patient has a Sahni catheter in place. Denies any new swelling in extremities. Denies any weakness of extremities or one-sided weakness. No difficulty with speech or movement otherwise. Patient notes he is had prior pacemaker. Notes that he is on warfarin. He states he is also had sat valve surgery on his aorta. Former tobacco user, no regular alcohol, remote history of recreational drugs none active. He is currently living at facility. Dr. Hart is his primary care. Related Data Home Medications Medication Instructions Recorded Confirmed acetaminophen 325 mg tablet 650 mg PO Q4H PRN pain 06/13/22 01/24/23 atorvastatin 40 mg tablet 40 mg PO BEDTIME 06/13/22 01/24/23 calcium carbonate 215 mg calcium 500 mg DAILY 06/13/22 01/24/23 (500 mg) chewable tablet (Antacid (calcium carbonate)) ferrous sulfate 325 mg (65 mg 325 mg PO DAILY 06/13/22 01/24/23 iron) tablet furosemide 40 mg tablet 40 mg PO DAILY 06/13/22 01/24/23 gabapentin 300 mg tablet 600 mg PO BID 06/13/22 01/24/23 insulin glargine 100 unit/mL 10 unit SUBCUT QPM 06/13/22 01/24/23 subcutaneous cartridge insulin lispro 100 unit/mL 1 sliding scale dose SUBCUT 06/13/22 01/24/23 subcutaneous cartridge USEASDIRECTD lisinopril 2.5 mg tablet 2.5 mg PO DAILY 06/13/22 01/24/23 metoprolol succinate 25 mg 12.5 mg PO DAILY 06/13/22 01/24/23 tablet,extended release 24 hr pantoprazole 40 mg tablet,delayed 40 mg PO DAILY 06/13/22 01/24/23 release pramipexole 0.5 mg tablet 0.5 mg PO DAILY 06/13/22 01/24/23 ropinirole 1 mg tablet 1.5 mg PO BID 06/13/22 01/24/23 sertraline 50 mg tablet 50 mg PO DAILY 06/13/22 01/24/23 tolterodine 4 mg capsule,extended 4 mg PO DAILY 06/13/22 01/24/23 release 24 hr hydroxyzine pamoate 25 mg capsule 25 mg PO PRN PRN Sleep 08/03/22 01/24/23 (Vistaril) bicalutamide 50 mg tablet 50 mg PO DAILY 12/14/22 01/24/23 ondansetron 4 mg disintegrating 8 mg PO Q6H PRN Nausea 12/14/22 01/24/23 tablet ropinirole 2 mg tablet 2 mg PO BEDTIME 12/14/22 01/24/23 spironolactone 25 mg tablet 25 mg PO BID 12/14/22 01/24/23 Previous Rx's Medication Instructions Recorded hydrocodone 5 mg-acetaminophen 325 2 tab PO Q6H PRN pain #30 tabs 10/18/22 mg tablet sennosides 8.6 mg tablet (senna) 17.2 mg PO BEDTIME #30 tabs 01/27/23 Allergies Allergy/AdvReac Type Severity Reaction Status Date / Time crab Allergy Severe Deathly Verified 10/23/22 11:54 sick aspartame Allergy Unknown Verified 10/22/22 15:15 carbidopa Allergy Hallucinations, Verified 10/23/22 11:54 anxiety morphine AdvReac Nausea/vomi Verified 10/23/22 11:54 ting Review of Systems Review of Systems ROS Unobtainable: All systems reviewed & are unremarkable except as noted in HPI and below Patient History Medical History Androgen deprivation therapy Arthritis Atrial fibrillation CAD (coronary artery disease) Chronic anticoagulation Congestive heart failure Depression Diabetes DVT (deep venous thrombosis) Enlarged lymph node First degree AV block GERD (gastroesophageal reflux disease) Gout History of left heart catheterization (12/2019) History of prostate cancer History of radiation therapy History of transcatheter aortic valve replacement (TAVR) (08/01/18) Hydronephrosis, right Hypertension LAFB (left anterior fascicular block) Osteoarthritis Pacemaker Paroxysmal A-fib Prostate cancer RBBB Sleep apnea Stress incontinence Stress incontinence, male Surgical History AICD (automatic cardioverter/defibrillator) present (12/30/20) H/O aortic valve replacement History of back surgery Hx of heart artery stent Family History Mother Coronary artery disease involving bypass graft of transplanted heart Cancer Hypertension Social History marital status: number of children: 3 household members: none Previous occupational history: retired Smoking Status: Former smoker alcohol intake: never caffeine: Yes Smoking Status: Former smoker tobacco type: cigarettes alcohol intake frequency: 0-2 drinks per day Substance Use Type: does not use and former substance user Exam Narrative Exam Narrative: GEN: Patient appears in mild distress. HEAD: No evidence of trauma, no raccoon/Walker sign. NECK: Nontender, painless range of motion, trachea midline Negative for Nexus criteria, there is no midline line tenderness, distracting injury, altered mental status, neuro deficit, recent EtOH. EYES: PERRLA, EOMI ENT: External inspection normal, trachea is midline, TM's are normal no hemotypanum, Nares are clear, no septal hematoma, no dental or oral injury, airway is normal and with normal occlusion, No bony tenderness RESP: Chest is tender on the left, no crepitus, no subcutaneous emphysema, no ecchymosis and has symmetric movement, breath sounds are normal no crackles, wheezes or rales CVS: Heart sounds are normal, no murmur noted, No JVD. ABG/GI: Patient has left-sided abdominal tenderness., soft, normal bowel sounds, no distention, no organomegaly, pelvic rock is negative NEURO: Oriented AOx3, neuro is grossly intact, sensation and motor is normal all 4 extremities moving, cranial nerves II through XII are intact, GCS is 15 PSYCH: Normal mood and affect SKIN: Intact, warm and dry, no crepitus and without decubitus BACK: No CVA tenderness, no vertebral tenderness, no step-off's, no crepitus EXT: Atraumatic, patient has some mild tenderness of the left hip, he has full range of motion. It is mostly over the greater trochanter. No pedal edema, normal color and temperature, normal range of motion of extremities with normal tendon exam, 2+ pulses in all four extremities Initial Vital Signs Initial Vital Signs: Vital Signs Temperature 98.2 F 02/04/23 07:10 Pulse Rate 75 02/04/23 07:10 Respiratory Rate 16 02/04/23 07:10 Blood Pressure 121/60 02/04/23 07:10 Pulse Oximetry 95 02/04/23 07:10 Oxygen Delivery Method Room Air 02/04/23 07:10 Course Orders Ordered: Discontinued Medications Acetaminophen (Acetaminophen 325 Mg Tablet) 975 mg PO NOW ONE Stop: 02/04/23 11:52 Last Admin: 02/04/23 11:58 Dose: 975 mg Documented By: SPF Oxycodone HCl (Oxycodone Ir 5 Mg Tablet) 10 mg PO NOW ONE Stop: 02/04/23 09:07 Last Admin: 02/04/23 09:11 Dose: 10 mg Documented By: NR Vital Signs Vital signs: Vital Signs - 8 hr 02/04/23 07:10 02/04/23 07:11 02/04/23 07:30 Temperature 98.2 F Pulse Rate 75 75 Respiratory Rate 16 27 H Blood Pressure 121/60 127/59 L Pulse Oximetry 95 91 Oxygen Delivery Method Room Air 02/04/23 07:30 02/04/23 07:59 02/04/23 07:59 Temperature Pulse Rate 74 71 Respiratory Rate 34 H 10 L Blood Pressure 122/58 L Pulse Oximetry 92 91 Oxygen Delivery Method 02/04/23 08:00 02/04/23 08:00 02/04/23 08:30 Temperature Pulse Rate 71 70 Respiratory Rate 18 28 H Blood Pressure 123/59 L Pulse Oximetry 92 93 Oxygen Delivery Method 02/04/23 08:31 02/04/23 08:31 02/04/23 09:00 Temperature Pulse Rate 69 Respiratory Rate 22 Blood Pressure 116/56 L 119/56 L Pulse Oximetry 94 Oxygen Delivery Method 02/04/23 09:00 Temperature Pulse Rate 69 Respiratory Rate 23 Blood Pressure Pulse Oximetry 92 Oxygen Delivery Method MDM - Trauma Lab Data 02/04/23 07:10 02/04/23 07:10 Labs: Lab Results 02/04/23 02/04/23 02/04/23 Range/Units 07:10 07:10 07:10 WBC 17.5 H (4.5-11.0) X10^3/uL RBC 3.58 L (4.5-5.9) X10^6/uL Hgb 9.9 L (13.5-17.5) g/dL Hct 30.2 L (41-53) % MCV 84.4 (80-100) fL MCH 27.5 (26-34) PG MCHC 32.6 (30-36) % RDW 15.5 H (11.6-14.8) % Plt Count 205 (150-400) X10^3/uL Neut % (Auto) 84.0 H (50-75) % Lymph % (Auto) 9.7 L (25-40) % Sandoval % (Auto) 3.8 (3-14) % Eos % (Auto) 2.1 (2-4) % Baso % (Auto) 0.4 (0-2) % Neut # (Auto) 09259 H (6752-6452) /uL Lymph # (Auto) 1700 (6896-4871) /uL Sandoval # (Auto) 700 (0-900) /uL Eos # (Auto) 400 (0-450) /uL Baso # (Auto) 100 (0-100) /uL PT 13.6 H (10.1-12.7) SECONDS INR 1.2 (0.9-1.3) APTT 32 (26-36) SECONDS Sodium 136 L (137-145) mmol/L Potassium 3.7 (3.4-5.1) mmol/L Chloride 102 (98-107) mmol/L Carbon Dioxide 26 (22-32) mmol/L BUN 19 (9-20) mg/dL Creatinine 1.94 H (0.66-1.25) mg/dL Estimated GFR 36 L (>60) mL/min BUN/Creatinine Ratio 9.8 (6-22) Glucose 118 H (80-110) mg/dL Calcium 8.6 (8.4-10.2) mg/dL Total Bilirubin 0.4 (0.2-1.3) mg/dL AST 24 (17-59) IU/L ALT 17 (<50) IU/L Alkaline Phosphatase 80 (38-126) U/L Total Creatine Kinase 24 L (55-170) U/L Troponin I < 0.012 (0.01-0.034) ng/mL NT-Pro-B Natriuret Pep (<125) pg/mL Total Protein 6.5 (6.3-8.2) g/dL Albumin 3.6 (3.5-5.0) g/dL Globulin 2.9 (1.7-4.1) g/dL Albumin/Globulin Ratio 1.2 (1.0-2.8) Lipase 44 (23-300) U/L Urine RBC (0-5/HPF) Urine WBC (0-5/HPF) Ur Squamous Epith Cells (0-5/HPF) Urine Bacteria (None) Ur Culture Indicated? Micro UA Comment U Opiates 300ng/mL cut (Negative) Ur Oxycodone Screen (Negative) Urine Methadone Screen (Negative) Ur Barbiturates Screen (Negative) U Tricyclic Antidepress (Negative) Ur Phencyclidine Scrn (Negative) Ur Amphetamines Screen (Negative) U Methamphetamines Scrn (Negative) Ur MDMA Scrn (Ecstasy) (Negative) U Benzodiazepines Scrn (Negative) Urine Cocaine Screen (Negative) U Marijuana (THC) Screen (Negative) Ethyl Alcohol < 10 ( - 10) mg/dL 02/04/23 02/04/23 02/04/23 Range/Units 07:10 07:34 07:34 WBC (4.5-11.0) X10^3/uL RBC (4.5-5.9) X10^6/uL Hgb (13.5-17.5) g/dL Hct (41-53) % MCV (80-100) fL MCH (26-34) PG MCHC (30-36) % RDW (11.6-14.8) % Plt Count (150-400) X10^3/uL Neut % (Auto) (50-75) % Lymph % (Auto) (25-40) % Sandoval % (Auto) (3-14) % Eos % (Auto) (2-4) % Baso % (Auto) (0-2) % Neut # (Auto) (6641-6969) /uL Lymph # (Auto) (9707-9227) /uL Sandoval # (Auto) (0-900) /uL Eos # (Auto) (0-450) /uL Baso # (Auto) (0-100) /uL PT (10.1-12.7) SECONDS INR (0.9-1.3) APTT (26-36) SECONDS Sodium (137-145) mmol/L Potassium (3.4-5.1) mmol/L Chloride (98-107) mmol/L Carbon Dioxide (22-32) mmol/L BUN (9-20) mg/dL Creatinine (0.66-1.25) mg/dL Estimated GFR (>60) mL/min BUN/Creatinine Ratio (6-22) Glucose (80-110) mg/dL Calcium (8.4-10.2) mg/dL Total Bilirubin (0.2-1.3) mg/dL AST (17-59) IU/L ALT (<50) IU/L Alkaline Phosphatase (38-126) U/L Total Creatine Kinase (55-170) U/L Troponin I (0.01-0.034) ng/mL NT-Pro-B Natriuret Pep 445 H (<125) pg/mL Total Protein (6.3-8.2) g/dL Albumin (3.5-5.0) g/dL Globulin (1.7-4.1) g/dL Albumin/Globulin Ratio (1.0-2.8) Lipase (23-300) U/L Urine RBC None seen (0-5/HPF) Urine WBC None seen (0-5/HPF) Ur Squamous Epith Cells None seen (0-5/HPF) Urine Bacteria None seen (None) Ur Culture Indicated? Cult not indicated Micro UA Comment Microscopic normal U Opiates 300ng/mL cut Negative (Negative) Ur Oxycodone Screen Positive H (Negative) Urine Methadone Screen Negative (Negative) Ur Barbiturates Screen Negative (Negative) U Tricyclic Antidepress Negative (Negative) Ur Phencyclidine Scrn Negative (Negative) Ur Amphetamines Screen Negative (Negative) U Methamphetamines Scrn Negative (Negative) Ur MDMA Scrn (Ecstasy) Negative (Negative) U Benzodiazepines Scrn Positive H (Negative) Urine Cocaine Screen Negative (Negative) U Marijuana (THC) Screen Negative (Negative) Ethyl Alcohol ( - 10) mg/dL Urine Dip Bedside Urine Glucose Negative Bedside Urine Bilirubin - Negative Bedside Urine Ketone - Negative Urine Specific Mcfarland 1.015 Bedside Urine Occult Blood - Negative Bedside Urine pH 6.0 Bedside Urine Protein - Negative Bedside Urine Urobilinogen - Negative Bedside Urine Nitrite - Negative Bedside Urine Leukocytes - Negative Esterase Imaging Data CT scan - head: Radiologist's Impression: [address] [address] [address] Scan Report Signed Patient: Erick Álvarez V MR#: [id number] : 1950 Acct:[id number] Age/Sex: 72 / M Date of Service: 02/04/23 Loc: ED Accession Number: [id number] ?? Procedure: CT head/brain wo con Ordering Provider: Keshia Kate D.O. PROCEDURE:? CT HEAD/BRAIN WO CON ? INDICATIONS:? fall/ ? syncope ? TECHNIQUE:? Noncontrast 4.5 mm thick angled axial sections acquired from the foramen magnum to the vertex, with coronal and sagittal reformats.? For radiation dose reduction, the following was used:? automated exposure control, adjustment of mA and/or kV according to patient size.? ? COMPARISON:? [facility], CT, CT HEAD/BRAIN WO CON, 04/20/2022, 12:53. ? FINDINGS:? Image quality:? Excellent.? ? CSF spaces:? Basal cisterns are patent.? No extra-axial fluid collections.? The ventricles are symmetric in size and shape.? ? Brain:? No intracranial bleeds or masses.? There is cerebral volume loss for age, with resultant ventricular and sulcal prominence.? There are periventricular and deep white matter chronic small vessel ischemic changes.? There is intracranial internal carotid artery atherosclerosis.? ? Skull and face:? Calvarium and visualized facial bones appear intact, without suspicious lesions.? ? Sinuses:? Visualized sinuses and mastoids are clear.? ? IMPRESSION:? 1. No acute intracranial abnormality. 2. Cerebral volume loss and small vessel ischemic changes.? Dictated by: Shady Jones M.D. on 02/04/2023 at 8:16 ? ? Approved by: Shady Jones M.D. on 02/04/2023 at 8:18?? CT - cervical spine: Radiologist's Impression: [place] [address] CT Scan Report Signed Patient: Erick Álvarez V MR#: [id number] : 1950 Acct:[id number] Age/Sex: 72 / M Date of Service: 02/04/23 Loc: ED Accession Number: [id number] ?? Procedure: CT cervical spine wo con Ordering Provider: Keshia Kate D.O. PROCEDURE:? CT CERVICAL SPINE WO CON ? INDICATIONS:? fall/ ? syncope ? TECHNIQUE:? Noncontrast 3 mm thick sections acquired from the skull base to the T4 level.? Sagittal and coronal reformats were then constructed.? For radiation dose reduction, the following was used:? automated exposure control, adjustment of mA and/or kV according to patient size.? ? COMPARISON:? [facility], CR, XR HIP W PEL IF DONE LT 2V, 02/04/2023, 7:47.? [facility], CT, CT CERVICAL SPINE WO CON, 04/20/2022, 12:53. ? FINDINGS:? Image quality:? Excellent.? ? Bones:? No fractures or dislocations.? Visualized superior ribs are intact.? Multilevel degenerative changes. ? Soft tissues:? Prevertebral soft tissues are normal in thickness.? No paravertebral hematomas.? No apical pneumothoraces.? ? ? IMPRESSION:? Degenerative changes.? No acute abnormality. ? Dictated by: Shady Jones M.D. on 02/04/2023 at 8:31 ? ? Approved by: Shady Jones M.D. on 02/04/2023 at 8:34?? CT chest/abd/pelvis: Radiologist's Impression: [address] [address] [address] Scan Report Signed Patient: Erick Álvarez V MR#: [id number] : 1950 Acct:[id number] Age/Sex: 72 / M Date of Service: 02/04/23 Loc: ED Accession Number: [id number] ?? Procedure: CT chest abd pel w con Ordering Provider: Keshia Kate D.O. PROCEDURE:? CT CHEST ABD PEL W CON ? INDICATIONS:? fall, syncope? left rib/abd pain on warfarin ? TECHNIQUE:? After the administration of intravenous contrast, 5 mm thick sections acquired from the lung apices to the symphysis.? 5 mm coronal and sagittal reformats were performed, with additional 7 mm MIP reformats through the lungs.? For radiation dose reduction, the following was used:? automated exposure control, adjustment of mA and/or kV acc ording to patient size.? ? COMPARISON:? [facility], CT, CT ABDOMEN PELVIS WO [facility], 10/18/2022, 16:34.? [facility], CT, CT KIDNEY URETER BLADDER (KUB), 10/29/2022, 9:07.? [facility], CT, CT ABDOMEN PELVIS WO CON, 12/14/2022, 1:37. ? FINDINGS:? Image quality:? Excellent.? ? CHEST:? Lungs and pleura:? No acute airspace opacities.? Bibasilar atelectasis.? No pleural effusions or pneumothorax.? Central and peripheral airways appear patent and normal in caliber.? ? Mediastinum:? Heart size is normal.? The coronary arteries have atherosclerotic calcifications.? No pericardial effusion.? No mediastinal or hilar adenopathy by size criteria.? Thoracic aorta and central pulmonary arteries are normal in size.? Esophagus is normal in caliber.? No hiatal hernia.? ? Chest wall:? No axillary or supraclavicular adenopathy by size criteria.? Thyroid gland normal .? Bilateral gynecomastia. ? ? ABDOMEN:? Solid organs:? Liver is normal in size and enhancement.? Gallbladder normal .? Biliary system is non dilated.? Pancreas enhances normally.? Spleen is enlarged, unchanged.? No adrenal nodules.? The right kidney has a nephrostomy tube.? No hydronephrosis. ? Peritoneum and bowel:? Bowel loops demonstrate normal wall thickness and caliber.? There is diverticulosis without evidence of diverticulitis.? No free fluid or air.? ? Nodes and vessels:? No retroperitoneal or mesenteric adenopathy by size criteria.? Aorta and inferior vena cava are normal in size.? Vasculature has heavy atheroscler otic calcifications. ? Miscellaneous:? No ventral hernias.? ? ? PELVIS:? Genitourinary:? Right pelvic sidewall mass which in cases the iliac bifurcation is unchanged. ? Miscellaneous:? No inguinal hernia.? The prostate has fiducial markers. ? Bones:? No suspicious bony lesions.? Compression fracture L3 appears acute compared to prior CTs. ? IMPRESSION:? 1. L3 compression fracture appears acute or subacute. 2. Stable retroperitoneal adenopathy and right pelvic sidewall mass. 3. Right nephrostomy tube is well positioned. ? ? Dictated by: Shady Jones M.D. on 02/04/2023 at 8:18 ? ? Approved by: Shady Jones M.D. on 02/04/2023 at 8:30?? ECG Data Attestation: I personally reviewed and interpreted this ECG as follows: Prior ECG tracings: available for review Interpretation: Ventricularly paced rhythm, rate of 70 ID 176 QTC 536. No acute ST changes appreciated. Patient has prior from 01/23/2023 which appears similar. [facility] Narrative Medical decision making narrative: This is a 72-year-old may have had a syncopal episode he does not recall falling but has had several falls in the last day or so he states his feet gets stuck. Patient's head CT, C-spine chest abdomen pelvis show L3 compression fracture she is likely new, stable retroperitoneal adenopathy and sidewall mass as well as n ephrostomy tube in place. No acute changes to head CT or C-spine. No reported rib fractures on imaging, patient is quite tender left-sided abdominal wall. This is why he had CT chest abdomen pelvis. There is no pneumothorax, no injury to solid organs. Patient's labs overall show a stable anemia, he does have a leukocytosis, creatinine is 1.9 for which is to baseline he has been up about 2 in the past. Electrolytes, LFTs otherwise normal BNP is 445 improved from priors in his troponin is negative today. Patient does not have any other clear infectious changes. Patient did have a positive culture on 01/23/2023 for multi resistant E coli, and was admitted at that time and discharged home on ertapenem. Patient had no acute change on point of care urine but will recent urine today as his white count is elevated from prior. We will hold on antibiotics as he has pain resistance and no clear infection today. Updated patient on all of his findings. He suspects his L3 compression fr actures maybe older than today. Reviewed plan patient feels comfortable with this. He states he normally takes oxycodone for pain thinks 2 tablets would be more helpful than 1. He feels comfortable with discharge home. He states they are going to be starting physical therapy but have not recently. Discharge Plan Departure Patient Disposition: Home Clinical Impression: Syncope, Left-sided chest wall pain, Closed compression fracture of L3 vertebra Activity Restrictions/Additional Instructions: Your workup today shows an elevated white count but no other clear changes. Your imaging overall is reassuring there is what appears to be a new L3 compression fracture that maybe new or fairly new on your imaging. Your urine does not show obvious signs of infection but a urine culture was sent and is pending. I would recommend that you follow-up with physical therapy to assist with your frequent falls You may continue with Tylenol 650 mg every 4 hours as needed. Continue your other pain medications as prescribed. You can take oxycodone 1-2 tablets every 6 hours as needed for pain. Please return for fevers, worsening symptoms, new chest pain or shortness of breath, passing out, black or bloody stools, difficulty with urination or your nephrostomy tube becoming blocked or other new or concerning changes. Prescriptions: No Action acetaminophen 325 mg Tablet 650 mg PO Q4H PRN (Reason: pain) atorvastatin 40 mg Tablet 40 mg PO BEDTIME Antacid (calcium carbonate) 215 mg calcium (500 mg) Tablet,Chewable 500 mg DAILY furosemide 40 mg Tablet 40 mg PO DAILY gabapentin 300 mg Tablet 600 mg PO BID ferrous sulfate 325 mg (65 mg iron) Tablet 325 mg PO DAILY metoprolol succinate 25 mg Tablet Extended Release 24 Hr 12.5 mg PO DAILY Rx Instructions: Hold for SBP < 100, HR < 60 lisinopril 2.5 mg Tablet 2.5 mg PO DAILY insulin glargine 100 unit/mL Cartridge 10 unit SUBCUT QPM pramipexole 0.5 mg Tablet 0.5 mg PO DAILY pantoprazole 40 mg Tablet,Delayed Release (Dr/Ec) 40 mg PO DAILY ropinirole 1 mg Tablet 1.5 mg PO BID tolterodine 4 mg Capsule,Extended Release 24hr 4 mg PO DAILY sertraline 50 mg Tablet 50 mg PO DAILY insulin lispro 100 unit/mL Cartridge 1 sliding scale dose SUBCUT USEASDIRECTD Patient Comments: No coverage if CBG less than 150 spironolactone 25 mg tablet 25 mg PO BID ropinirole 2 mg tablet 2 mg PO BEDTIME bicalutamide 50 mg tablet 50 mg PO DAILY Rx Instructions: Prostate CA ondansetron 4 mg tablet,disintegrating 8 mg PO Q6H PRN (Reason: Nausea) hydrocodone-acetaminophen 5-325 mg tablet 2 tab PO Q6H PRN (Reason: pain) Qty: 30 0RF sennosides [senna] 8.6 mg Tablet 17.2 mg PO BEDTIME Qty: 30 0RF hydroxyzine pamoate [Vistaril] 25 mg capsule 25 mg PO PRN PRN (Reason: Sleep) Referrals: Vandana Hart MD [Primary Care Provider] - Stand Alone Forms: Patient Portal/API
--- NOTE | 2023-02-04 07:27 | DI.RAD.S_ITS ---
PROCEDURE: XR CHEST 1V INDICATIONS: fall/syncope TECHNIQUE: One view of the chest was acquired. COMPARISON: [facility], CR, XR CHEST 1V, 01/23/2023, 19:46. [facility], CR, XR CHEST 1V, 12/13/2022, 23:44. FINDINGS: Surgical changes and devices: Left chest wall pacer is seen with intact leads. TAVR Lungs and pleura: Lungs are clear. No pleural effusions or pneumothorax. Mediastinum: Mediastinal contours appear normal. Heart size is enlarged. Bones and chest wall: No suspicious bony lesions. Overlying soft tissues appear unremarkable. IMPRESSION: 1. No acute abnormality. 2. Stable cardiomegaly. Dictated by: Shady Jones M.D. on 02/04/2023 at 8:36 Approved by: Shady Jones M.D. on 02/04/2023 at 8:37
--- NOTE | 2023-02-04 07:28 | DI.CT.S_ITS ---
PROCEDURE: CT HEAD/BRAIN WO CON INDICATIONS: fall/ ? syncope TECHNIQUE: Noncontrast 4.5 mm thick angled axial sections acquired from the foramen magnum to the vertex, with coronal and sagittal reformats. For radiation dose reduction, the following was used: automated exposure control, adjustment of mA and/or kV according to patient size. COMPARISON: [facility], CT, CT HEAD/BRAIN WO CON, 04/20/2022, 12:53. FINDINGS: Image quality: Excellent. CSF spaces: Basal cisterns are patent. No extra-axial fluid collections. The ventricles are symmetric in size and shape. Brain: No intracranial bleeds or masses. There is cerebral volume loss for age, with resultant ventricular and sulcal prominence. There are periventricular and deep white matter chronic small vessel ischemic changes. There is intracranial internal carotid artery atherosclerosis. Skull and face: Calvarium and visualized facial bones appear intact, without suspicious lesions. Sinuses: Visualized sinuses and mastoids are clear. IMPRESSION: 1. No acute intracranial abnormality. 2. Cerebral volume loss and small vessel ischemic changes. Dictated by: Shady Jones M.D. on 02/04/2023 at 8:16 Approved by: Shady Jones M.D. on 02/04/2023 at 8:18
--- NOTE | 2023-02-04 07:28 | DI.CT.S_ITS ---
PROCEDURE: CT CERVICAL SPINE WO CON INDICATIONS: fall/ ? syncope TECHNIQUE: Noncontrast 3 mm thick sections acquired from the skull base to the T4 level. Sagittal and coronal reformats were then constructed. For radiation dose reduction, the following was used: automated exposure control, adjustment of mA and/or kV according to patient size. COMPARISON: [facility], CR, XR HIP W PEL IF DONE LT 2V, 02/04/2023, 7:47. [facility], CT, CT CERVICAL SPINE WO CON, 04/20/2022, 12:53. FINDINGS: Image quality: Excellent. Bones: No fractures or dislocations. Visualized superior ribs are intact. Multilevel degenerative changes. Soft tissues: Prevertebral soft tissues are normal in thickness. No paravertebral hematomas. No apical pneumothoraces. IMPRESSION: Degenerative changes. No acute abnormality. Dictated by: Shady Jones M.D. on 02/04/2023 at 8:31 Approved by: Shady Jones M.D. on 02/04/2023 at 8:34
--- NOTE | 2023-02-04 07:29 | DI.CT.S_ITS ---
PROCEDURE: CT CHEST ABD PEL W CON INDICATIONS: fall, syncope? left rib/abd pain on warfarin TECHNIQUE: After the administration of intravenous contrast, 5 mm thick sections acquired from the lung apices to the symphysis. 5 mm coronal and sagittal reformats were performed, with additional 7 mm MIP reformats through the lungs. For radiation dose reduction, the following was used: automated exposure control, adjustment of mA and/or kV according to patient size. COMPARISON: [facility], CT, CT ABDOMEN PELVIS WO CON, 10/18/2022, 16:34. [facility], CT, CT KIDNEY URETER BLADDER (KUB), 10/29/2022, 9:07. [facility], CT, CT ABDOMEN PELVIS WO CON, 12/14/2022, 1:37. FINDINGS: Image quality: Excellent. CHEST: Lungs and pleura: No acute airspace opacities. Bibasilar atelectasis. No pleural effusions or pneumothorax. Central and peripheral airways appear patent and normal in caliber. Mediastinum: Heart size is normal. The coronary arteries have atherosclerotic calcifications. No pericardial effusion. No mediastinal or hilar adenopathy by size criteria. Thoracic aorta and central pulmonary arteries are normal in size. Esophagus is normal in caliber. No hiatal hernia. Chest wall: No axillary or supraclavicular adenopathy by size criteria. Thyroid gland normal . Bilateral gynecomastia. ABDOMEN: Solid organs: Liver is normal in size and enhancement. Gallbladder normal . Biliary system is non dilated. Pancreas enhances normally. Spleen is enlarged, unchanged. No adrenal nodules. The right kidney has a nephrostomy tube. No hydronephrosis. Peritoneum and bowel: Bowel loops demonstrate normal wall thickness and caliber. There is diverticulosis without evidence of diverticulitis. No free fluid or air. Nodes and vessels: No retroperitoneal or mesenteric adenopathy by size criteria. Aorta and inferior vena cava are normal in size. Vasculature has heavy atherosclerotic calcifications. Miscellaneous: No ventral hernias. PELVIS: Genitourinary: Right pelvic sidewall mass which in cases the iliac bifurcation is unchanged. Miscellaneous: No inguinal hernia. The prostate has fiducial markers. Bones: No suspicious bony lesions. Compression fracture L3 appears acute compared to prior CTs. IMPRESSION: 1. L3 compression fracture appears acute or subacute. 2. Stable retroperitoneal adenopathy and right pelvic sidewall mass. 3. Right nephrostomy tube is well positioned. Dictated by: Shady Jones M.D. on 02/04/2023 at 8:18 Approved by: Shady Jones M.D. on 02/04/2023 at 8:30
[2023-02-04 07:37] LABS: INR 1.2 (0.9-1.3); Prothrombin Time 13.6 SECONDS (10.1-12.7)
[2023-02-04 07:39] LABS: Add Manual Diff / Slide Review NO; Basophils Absolute Auto 100 /uL (0-100); Basophils Percent Auto 0.4 % (0-2); Eosinophils Absolute Auto 400 /uL (0-450); Eosinophils Percent Auto 2.1 % (2-4); Hematocrit 30.2 % (41-53); Hemoglobin 9.9 g/dL (13.5-17.5); Lymphocytes Absolute Auto 1700 /uL (1100-4500); Lymphocytes Percent Auto 9.7 % (25-40); Mean Corpuscular HGB Conc 32.6 % (30-36); Mean Corpuscular Hemoglobin 27.5 PG (26-34); Mean Corpuscular Volume 84.4 fL (80-100); Monocytes Absolute Auto 700 /uL (0-900); Monocytes Percent Auto 3.8 % (3-14); Neutrophils Absolute Auto 14700 /uL (1500-7000); Platelet Count 205 X10^3/uL (150-400); Red Blood Cell Count 3.58 X10^6/uL (4.5-5.9); Red Cell Distribution Width 15.5 % (11.6-14.8); White Blood Cell Count 17.5 X10^3/uL (4.5-11.0)
[2023-02-04 07:40] LABS: PTT Partial Thromboplastin Tim 32 SECONDS (26-36)
[2023-02-04 07:42] LABS: Alanine Aminotransferase 17 IU/L (<50); Albumin 3.6 g/dL (3.5-5.0); Albumin Globulin Ratio 1.2 (1.0-2.8); Alkaline Phosphatase 80 U/L (38-126); Aspartate Aminotransferase 24 IU/L (17-59); BUN Creatinine Ratio 9.8 (6-22); Bilirubin Total 0.4 mg/dL (0.2-1.3); Blood Urea Nitrogen 19 mg/dL (9-20); Calcium 8.6 mg/dL (8.4-10.2); Carbon Dioxide 26 mmol/L (22-32); Chloride 102 mmol/L (98-107); Creatine Kinase 24 U/L (55-170); Estimated Glomerular Filt Rate 36 mL/min (>60); Ethanol (ETOH) < 10 mg/dL; Globulin 2.9 g/dL (1.7-4.1); Glucose 118 mg/dL (80-110); HEMOLYSIS < 15 (0-50); Lipase 44 U/L (23-300); Potassium 3.7 mmol/L (3.4-5.1); Sodium 136 mmol/L (137-145); Total Protein 6.5 g/dL (6.3-8.2)
[2023-02-04 07:51] LABS: NT-proBNP (BNP-Adult 18+) 445 pg/mL (<125)
[2023-02-04 07:53] LABS: Troponin I < 0.012 ng/mL (0.01-0.034)
[2023-02-04 07:59] LABS: UR Morphine/Opiate cutoff 300 Negative (Negative); Ur Creatinine Normal (Normal); Ur Specific Gravity Normal (Normal); Urine Amphetamines Negative (Negative); Urine Barbiturates Negative (Negative); Urine Cocaine Negative (Negative); Urine MDMA Negative (Negative); Urine Methamphetamines Negative (Negative); Urine Phencyclidine Negative (Negative); Urine Tetrahydrocannabinol Negative (Negative); Urine pH Normal (Normal)
[2023-02-04 08:00] LABS: Urine Benzodiazepines Positive (Negative); Urine Methadone Negative (Negative); Urine Oxycodone Positive (Negative); Urine Tricyclic Antidepressant Negative (Negative)
[2023-02-04] MEDS: OXYCODONE IR 5 MG TABLET 10 MG PO (09:11)
[2023-02-04 10:03] LABS: Bacteria Urine None Seen; Culture Indicated Urine Cult Not Indicated; RBC Urine None Seen (0-5/HPF); Squamous Epithelial Cell Urine None Seen (0-5/HPF); Urine Comments Microscopic Normal; WBC Urine None Seen (0-5/HPF)
[2023-02-04] MEDS: ACETAMINOPHEN 325 MG TABLET 975 MG PO (11:58)
== END 2023-02-04 12:10 | disposition home or self-care (01) ==
PROVIDERS: Emergency Provider Emergency Medicine; PCP Internal Medicine
DX: S32.039A Unspecified fracture of third lumbar vertebra, initial encounter for closed fracture (principal); R07.89 Other chest pain; R07.81 Pleurodynia; R55 Syncope and collapse; R10.9 Unspecified abdominal pain; R29.6 Repeated falls; Z95.0 Presence of cardiac pacemaker; Z95.5 Presence of coronary angioplasty implant and graft; Z79.01 Long term (current) use of anticoagulants; G20 Parkinson's disease; D64.9 Anemia, unspecified; R79.89 Other specified abnormal findings of blood chemistry
CPT/HCPCS: 70450; 71045; 71260; 72125; 73502; 74177; 80053; 80305; 80320; 81003; 81015; 82550; 83690; 83880; 84484; 85025; 85610; 85730; 93005; 99284

== ENCOUNTER 2023-02-05 10:47 | Inpatient (IN) | payer MEDICARE, MEDICAID, SELFPAY ==
[2023-01-26 13:42] VITALS: BMI 29.5
[2023-02-05] VITALS (14 sets, daily range): BP systolic 109–133; BP diastolic 49–65; PULSE 77–88; RESP 16–93; TEMP 36.3–36.7; O2SAT 85–98; BMI 33.0
--- NOTE | 2023-02-05 11:15 | ED.TRAUMA ---
HPI - Trauma General Chief Complaint: Trauma Stated Complaint: Fall T-1, Lower abd pain Time Seen by Provider: 02/05/23 11:08 Source: patient and EMS Mode of arrival: EMS Limitations: no limitations History of Present Illness HPI narrative: 72-year-old male former smoker patient has history of pacemaker, prior aortic valve replacement on warfarin, prostate cancer, chronic kidney disease, CHF with intermittent use of oxygen, possible Parkinson's, insulin-dependent diabetes who was seen yesterday after a fall versus syncopal episode in his has persistent left-sided pain particularly in his abdomen. Patient was seen by Cyndy Oneal nurse practitioner in his facility she was concern he appears pale nauseated had elevated white count yesterday. He has had narcotics at his facility she states that might be contributing but is still quite painful. His finding yesterday were an L3 compression fracture, leukocytosis but without clear source. He has not had any fevers overnight, no hypotension but was slightly tachycardic at 1:08 a.m. at their facility. He was 88% but does use oxygen intermittently. Patient is DNR/DNI with limited interventions. Patient states no new falls since yesterday. He has persistent left-sided pain more in his abdomen in his chest. He denies fevers, he states he had some nausea and vomiting yesterday. He denies any diarrhea or constipation. He denies new back or flank pain. He has a nephrostomy tube in place which has been draining urine overnight. No new weakness in the extremities. No headaches, denies chest pain or shortness of breath currently. He is on warfarin daily. Related Data Home Medications Medication Instructions Recorded Confirmed acetaminophen 325 mg tablet 650 mg PO Q4H PRN pain 06/13/22 02/05/23 atorvastatin 40 mg tablet 40 mg PO BEDTIME 06/13/22 02/05/23 calcium carbonate 215 mg calcium 500 mg DAILY 06/13/22 02/05/23 (500 mg) chewable tablet (Antacid (calcium carbonate)) ferrous sulfate 325 mg (65 mg 325 mg PO DAILY 06/13/22 02/05/23 iron) tablet furosemide 40 mg tablet 40 mg PO DAILY 06/13/22 02/05/23 gabapentin 300 mg tablet 600 mg PO BID 06/13/22 02/05/23 insulin glargine 100 unit/mL 10 unit SUBCUT QPM 06/13/22 02/05/23 subcutaneous cartridge insulin lispro 100 unit/mL 1 sliding scale dose SUBCUT 06/13/22 02/05/23 subcutaneous cartridge USEASDIRECTD lisinopril 2.5 mg tablet 2.5 mg PO DAILY 06/13/22 02/05/23 metoprolol succinate 25 mg 12.5 mg PO DAILY 06/13/22 02/05/23 tablet,extended release 24 hr pantoprazole 40 mg tablet,delayed 40 mg PO DAILY 06/13/22 02/05/23 release pramipexole 0.5 mg tablet 0.5 mg PO DAILY 06/13/22 02/05/23 ropinirole 1 mg tablet 1.5 mg PO BID 06/13/22 02/05/23 sertraline 50 mg tablet 50 mg PO DAILY 06/13/22 02/05/23 tolterodine 4 mg capsule,extended 4 mg PO DAILY 06/13/22 02/05/23 release 24 hr hydroxyzine pamoate 25 mg capsule 25 mg PO PRN PRN Sleep 08/03/22 02/05/23 (Vistaril) bicalutamide 50 mg tablet 50 mg PO DAILY 12/14/22 02/05/23 ondansetron 4 mg disintegrating 8 mg PO Q6H PRN Nausea 12/14/22 02/05/23 tablet ropinirole 2 mg tablet 2 mg PO BEDTIME 12/14/22 02/05/23 spironolactone 25 mg tablet 25 mg PO BID 12/14/22 02/05/23 Previous Rx's Medication Instructions Recorded hydrocodone 5 mg-acetaminophen 325 2 tab PO Q6H PRN pain #30 tabs 10/18/22 mg tablet sennosides 8.6 mg tablet (senna) 17.2 mg PO BEDTIME #30 tabs 01/27/23 Allergies Allergy/AdvReac Type Severity Reaction Status Date / Time crab Allergy Severe Deathly Verified 02/05/23 10:58 sick aspartame Allergy Unknown Verified 02/05/23 10:58 carbidopa Allergy Hallucinations, Verified 02/05/23 10:58 anxiety morphine AdvReac Nausea/vomi Verified 02/05/23 10:58 ting Review of Systems Review of Systems ROS Unobtainable: All systems reviewed & are unremarkable except as noted in HPI and below Patient History Medical History Androgen deprivation therapy Arthritis Atrial fibrillation CAD (coronary artery disease) Chronic anticoagulation Congestive heart failure Depression Diabetes DVT (deep venous thrombosis) Enlarged lymph node First degree AV block GERD (gastroesophageal reflux disease) Gout History of left heart catheterization (12/2019) History of prostate cancer History of radiation therapy History of transcatheter aortic valve replacement (TAVR) (08/01/18) Hydronephrosis, right Hypertension LAFB (left anterior fascicular block) Osteoarthritis Pacemaker Paroxysmal A-fib Prostate cancer RBBB Sleep apnea Stress incontinence Stress incontinence, male Surgical History AICD (automatic cardioverter/defibrillator) present (12/30/20) H/O aortic valve replacement History of back surgery Hx of heart artery stent Family History Mother Coronary artery disease involving bypass graft of transplanted heart Cancer Hypertension Social History marital status: number of children: 3 household members: none Previous occupational history: retired Smoking Status: Former smoker alcohol intake: never caffeine: Yes Smoking Status: Former smoker tobacco type: cigarettes alcohol intake frequency: 0-2 drinks per day Substance Use Type: does not use and former substance user Exam Narrative Exam Narrative: GEN: Patient appears in mild distress. Patient is pale but appears fairly similar to yesterday. Yesterday he was jovial and today appears more withdrawn and uncomfortable. HEAD: No evidence of trauma, no raccoon/Walker sign. NECK: Nontender, painless range of motion, trachea midline Negative Nexus criteria, there is no midline line tenderness, distracting injury, altered mental status, neuro deficit, recent EtOH. EYES: PERRLA, EOMI ENT: External inspection normal, trachea is midline, TM's are normal no hemotypanum, Nares are clear, no septal hematoma, no dental or oral injury, airway is normal and with normal occlusion, No bony tenderness RESP: Chest is nontender and has symmetric movement, no ecchymosis, breath sounds are normal no crackles, wheezes or rales CVS: Heart sounds are normal, no murmur noted, No JVD. ABG/GI: Generalized tenderness right as well as left on examination., soft, normal bowel sounds, no distention, no organomegaly, pelvic rock is negative, patient does not have any ecchymosis or skin changes noted. He is distended but very soft. NEURO: Oriented AOx3, neuro is grossly intact, sensation and motor is normal all 4 extremities moving, cranial nerves II through XII are intact, GCS is 15 PSYCH: Normal mood and affect SKIN: Intact, warm and dry, no crepitus and without decubitus BACK: No CVA tenderness, no vertebral tenderness, no step-off's, no crepitus EXT: Atraumatic, hips are nontender, no pedal edema, normal color and temperature, normal range of motion of extremities with normal tendon exam, 2+ pulses in all four extremities Initial Vital Signs Initial Vital Signs: Vital Signs Temperature 98.1 F 02/05/23 10:50 Pulse Rate 87 02/05/23 10:50 Respiratory Rate 93 H 02/05/23 10:50 Blood Pressure 114/56 L 02/05/23 10:50 Pulse Oximetry 85 L 02/05/23 10:50 Oxygen Delivery Method Room Air 02/05/23 10:50 Course Orders Ordered: ED Orders 02/05/23 10:55 Complete Blood Count AUTO DIFF Stat Comprehensive Metabolic Panel Stat Lactate (Lactic Acid) Stat Lipase Stat PTT Partial Thromboplastin Jose Stat Prothrombin Time INR Stat 02/05/23 11:11 EKG-12 Lead Stat 02/05/23 11:16 CT chest abd pel w con Stat 02/05/23 11:17 Procalcitonin Stat 02/05/23 11:54 Type and Screen Stat 02/05/23 12:05 Blood Culture Stat 02/05/23 12:20 UA Complete [Urinalysis and Microscopic] Stat Urine Drug Screen, Rapid Stat Acetaminophen (Acetaminophen 325 Mg Tablet) 650 mg PO Q6H PRN PRN Reason: Fever/Mild Pain (1-3) Atorvastatin Calcium (Atorvastatin 20 Mg Tablet) 40 mg PO BEDTIME ANNAMARIE Bicalutamide (Bicalutamide 50 Mg Tablet) 50 mg PO DAILY ANNAMARIE Dextrose (Dextrose 50 % In Water 25 Gm/50 Ml Syringe) 25 gm IV PRN PRN PRN Reason: Hypoglycemia Dextrose (Dextrose 50 % In Water 25 Gm/50 Ml Syringe) 25 gm IV PRN PRN PRN Reason: Hypoglycemia Ferrous Sulfate (Ferrous Sulfate 325 Mg Tablet) 325 mg PO DAILY [facility] Furosemide (Furosemide 40 Mg Tablet) 40 mg PO DAILY [facility] Gabapentin (Gabapentin 600 Mg Tablet) 600 mg PO BID [facility] Heparin Sodium (Porcine) (Heparin 5,000 Unit/Ml Vial) 5,000 unit SUBCUT BID ANNAMARIE Hydromorphone HCl (Hydromorphone 0.5 Mg Inj) 0.5 mg IV Q4H PRN PRN Reason: Pain, Moderate (4-6) Last Admin: 02/05/23 15:04 Dose: 0.5 mg Documented By: LDV Hydroxyzine Pamoate (Hydroxyzine Pamoate 25 Mg Capsule) 25 mg PO PRN PRN PRN Reason: Sleep Sodium Chloride (Normal Saline 0.9%) 1,000 mls @ 150 mls/hr IV CONT ANNAMARIE Last Admin: 02/05/23 15:04 Dose: 150 mls/hr Documented By: LDV Meropenem 1 gm/ Sodium (Chloride) 100 mls @ 200 mls/hr IV Q12H [facility] Insulin Glargine (Insulin Glargine 100 Unit/Ml 3ml Pen) 45 unit SUBCUT 2100 ANNAMARIE Insulin Human Lispro (Insulin Lispro 100 Unit/Ml 3ml Vial) 0 unit SUBCUT ACHS ANNAMARIE; Protocol Last Admin: 02/05/23 17:39 Dose: Not Given Documented By: LDV Insulin Human Lispro (Insulin Lispro 100 Unit/Ml 3ml Vial) 0 unit SUBCUT ACHS ANNAMARIE; Protocol Melatonin (Melatonin 3 Mg Tablet) 6 mg PO BEDTIME PRN PRN Reason: Insomnia Metoprolol Succinate (Metoprolol Er 25 Mg Tablet) 12.5 mg PO DAILY [facility] Naloxone HCl (Naloxone 0.4 Mg/Ml Vial) 0.2 mg IV Q2MIN PRN PRN Reason: Opiate Reversal Nf - Tolterodine 4 (Mg Er Capsule) 4 mg PO DAILY [facility] Ondansetron HCl (Ondansetron 4 Mg/2 Ml Inj) 4 mg IV Q6HR [facility] Last Admin: 02/05/23 18:33 Dose: Not Given Documented By: LDV Oxycodone HCl (Oxycodone Ir 5 Mg Tablet) 5 mg PO Q4HR PRN PRN Reason: Pain, Moderate (4-6) Last Admin: 02/05/23 15:04 Dose: 5 mg Documented By: LDV Pantoprazole Sodium (Pantoprazole Dr 20 Mg Tablet) 20 mg PO 0600 ANNAMARIE Pantoprazole Sodium (Pantoprazole Dr 40 Mg Tablet) 40 mg PO 0600 [facility] Polyethylene Glycol (Polyethylene Glycol 3350 17 Gm Powd.Pack) 17 gm PO DAILY PRN PRN Reason: Constipation Pramipexole Dihydrochloride (Pramipexole 0.25 Mg Tablet) 0.5 mg PO BEDTIME ANNAMARIE Ropinirole HCl (Ropinirole 1 Mg Tablet) 1.5 mg PO 0900,1200 ANNAMARIE Ropinirole HCl (Ropinirole 1 Mg Tablet) 2 mg PO BEDTIME ANNAMARIE Sennosides (Sennosides 8.6 Mg Tablet) 8.6 mg PO BID PRN PRN Reason: Constipation Sennosides (Sennosides 8.6 Mg Tablet) 17.2 mg PO BEDTIME ANNAMARIE Sertraline HCl (Sertraline 50 Mg Tablet) 50 mg PO DAILY ANNAMARIE Spironolactone (Spironolactone 25 Mg Tablet) 25 mg PO BID ANNAMARIE Warfarin Sodium (Warfarin 5 Mg Tablet) 5 mg PO DAILY@1700 ANNAMARIE Discontinued Medications Sodium Chloride (Normal Saline 0.9%) 1,000 mls @ 500 mls/hr IV BOLUS ONE Stop: 02/05/23 13:14 Last Admin: 02/05/23 11:59 Dose: 500 mls/hr Documented By: Ertapenem 1 gm/ Sodium (Chloride) 100 mls @ 200 mls/hr IV NOW ONE Stop: 02/05/23 11:39 Last Infusion: 02/05/23 12:59 Dose: 0 mls/hr Documented By: Admin: 02/05/23 12:19 Dose: 200 mls/hr Documented By: Ondansetron HCl (Ondansetron 4 Mg/2 Ml Inj) 4 mg IV NOW ONE Stop: 02/05/23 11:16 Last Admin: 02/05/23 12:00 Dose: 4 mg Documented By: Vital Signs Vital signs: Vital Signs - 8 hr 02/05/23 12:25 02/05/23 12:00 02/05/23 12:15 Pulse Rate 78 79 81 Respiratory Rate 16 22 27 H Blood Pressure 133/65 133/65 Pulse Oximetry 96 96 96 Oxygen Delivery Method Nasal Cannula Room Air Room Air Oxygen Flow Rate 2 08/18/23 12:30 02/05/23 12:45 02/05/23 13:00 Pulse Rate 77 87 Respiratory Rate 23 Blood Pressure 121/58 L 120/59 L Pulse Oximetry 96 95 Oxygen Delivery Method Room Air Room Air Oxygen Flow Rate MDM - Trauma Lab Data 02/05/23 10:55 02/05/23 10:55 Labs: Lab Results 02/05/23 02/05/23 02/05/23 Range/Units 10:55 10:55 10:55 WBC 33.7 H* D (4.5-11.0) X10^3/uL RBC 3.61 L (4.5-5.9) X10^6/uL Hgb 9.9 L (13.5-17.5) g/dL Hct 30.1 L (41-53) % MCV 83.4 (80-100) fL MCH 27.4 (26-34) PG MCHC 32.8 (30-36) % RDW 15.7 H (11.6-14.8) % Plt Count 197 (150-400) X10^3/uL Neut % (Auto) Not Reportable Lymph % (Auto) Not Reportable Rosebud % (Auto) Not Reportable Eos % (Auto) Not Reportable Baso % (Auto) Not Reportable Lymph # (Auto) Not Reportable [place]bud # (Auto) Not Reportable Baso # (Auto) Not Reportable Total Counted 100 Seg Neutrophils % 91.0 H (38-70) % Lymphocytes % (Manual) 4.0 L (25-45) % Monocytes % (Manual) 5.0 (2-11) % Neutrophils # (Manual) 75022 H (8271-5440) /uL RBC Morphology See below Anisocytosis 1+ H PT 15.8 H (10.1-12.7) SECONDS INR 1.4 H (0.9-1.3) APTT 33 (26-36) SECONDS Sodium 132 L (137-145) mmol/L Potassium 4.4 (3.4-5.1) mmol/L Chloride 102 (98-107) mmol/L Carbon Dioxide 21 L (22-32) mmol/L BUN 21 H (9-20) mg/dL Creatinine 2.24 H (0.66-1.25) mg/dL Estimated GFR 30 L (>60) mL/min BUN/Creatinine Ratio 9.4 (6-22) Glucose 197 H (80-110) mg/dL Lactate (0.7-2.1) mmol/L Calcium 8.4 (8.4-10.2) mg/dL Total Bilirubin 0.8 (0.2-1.3) mg/dL AST 24 (17-59) IU/L ALT 15 (<50) IU/L Alkaline Phosphatase 84 (38-126) U/L Total Protein 6.7 (6.3-8.2) g/dL Albumin 3.6 (3.5-5.0) g/dL Globulin 3.1 (1.7-4.1) g/dL Albumin/Globulin Ratio 1.2 (1.0-2.8) Lipase 27 (23-300) U/L Procalcitonin (<0.5) ng/mL Urine Color Urine Appearance Urine pH (4.5-8.0) Ur Specific Linneus (1.000-1.035) Urine Protein (Negative) Urine Glucose (UA) (Negative) g/dL Urine Ketones (NEGATIVE) Urine Occult Blood (Negative) Urine Nitrate (Negative) Urine Bilirubin (NEGATIVE) Urine Urobilinogen (0.2) E.U./dL Ur Leukocyte Esterase (NEGATIVE) Urine RBC (0-5/HPF) Urine WBC (0-5/HPF) Ur Squamous Epith Cells (0-5/HPF) Urine Bacteria (None) Ur Culture Indicated? U Opiates 300ng/mL cut (Negative) Ur Oxycodone Screen (Negative) Urine Methadone Screen (Negative) Ur Barbiturates Screen (Negative) U Tricyclic Antidepress (Negative) Ur Phencyclidine Scrn (Negative) Ur Amphetamines Screen (Negative) U Methamphetamines Scrn (Negative) Ur MDMA Scrn (Ecstasy) (Negative) U Benzodiazepines Scrn (Negative) Urine Cocaine Screen (Negative) U Marijuana (THC) Screen (Negative) Blood Type Antibody Screen 02/05/23 02/05/23 02/05/23 Range/Units 10:55 10:55 11:17 WBC (4.5-11.0) X10^3/uL RBC (4.5-5.9) X10^6/uL Hgb (13.5-17.5) g/dL Hct (41-53) % MCV (80-100) fL MCH (26-34) PG MCHC (30-36) % RDW (11.6-14.8) % Plt Count (150-400) X10^3/uL Neut % (Auto) Lymph % (Auto) Rosebud % (Auto) Eos % (Auto) Baso % (Auto) Lymph # (Auto) Rosebud # (Auto) Baso # (Auto) Total Counted Seg Neutrophils % (38-70) % Lymphocytes % (Manual) (25-45) % Monocytes % (Manual) (2-11) % Neutrophils # (Manual) (2905-0945) /uL RBC Morphology Anisocytosis PT (10.1-12.7) SECONDS INR (0.9-1.3) APTT (26-36) SECONDS Sodium (137-145) mmol/L Potassium (3.4-5.1) mmol/L Chloride (98-107) mmol/L Carbon Dioxide (22-32) mmol/L BUN (9-20) mg/dL Creatinine (0.66-1.25) mg/dL Estimated GFR (>60) mL/min BUN/Creatinine Ratio (6-22) Glucose (80-110) mg/dL Lactate 0.9 Cancelled (0.7-2.1) mmol/L Calcium (8.4-10.2) mg/dL Total Bilirubin (0.2-1.3) mg/dL AST (17-59) IU/L ALT (<50) IU/L Alkaline Phosphatase (38-126) U/L Total Protein (6.3-8.2) g/dL Albumin (3.5-5.0) g/dL Globulin (1.7-4.1) g/dL Albumin/Globulin Ratio (1.0-2.8) Lipase (23-300) U/L Procalcitonin 1.30 H (<0.5) ng/mL Urine Color Urine Appearance Urine pH (4.5-8.0) Ur Specific Linneus (1.000-1.035) Urine Protein (Negative) Urine Glucose (UA) (Negative) g/dL Urine Ketones (NEGATIVE) Urine Occult Blood (Negative) Urine Nitrate (Negative) Urine Bilirubin (NEGATIVE) Urine Urobilinogen (0.2) E.U./dL Ur Leukocyte Esterase (NEGATIVE) Urine RBC (0-5/HPF) Urine WBC (0-5/HPF) Ur Squamous Epith Cells (0-5/HPF) Urine Bacteria (None) Ur Culture Indicated? U Opiates 300ng/mL cut (Negative) Ur Oxycodone Screen (Negative) Urine Methadone Screen (Negative) Ur Barbiturates Screen (Negative) U Tricyclic Antidepress (Negative) Ur Phencyclidine Scrn (Negative) Ur Amphetamines Screen (Negative) U Methamphetamines Scrn (Negative) Ur MDMA Scrn (Ecstasy) (Negative) U Benzodiazepines Scrn (Negative) Urine Cocaine Screen (Negative) U Marijuana (THC) Screen (Negative) Blood Type Antibody Screen 02/05/23 02/05/23 02/05/23 Range/Units 11:54 12:20 12:20 WBC (4.5-11.0) X10^3/uL RBC (4.5-5.9) X10^6/uL Hgb (13.5-17.5) g/dL Hct (41-53) % MCV (80-100) fL MCH (26-34) PG MCHC (30-36) % RDW (11.6-14.8) % Plt Count (150-400) X10^3/uL Neut % (Auto) Lymph % (Auto) Rosebud % (Auto) Eos % (Auto) Baso % (Auto) Lymph # (Auto) Rosebud # (Auto) Baso # (Auto) Total Counted Seg Neutrophils % (38-70) % Lymphocytes % (Manual) (25-45) % Monocytes % (Manual) (2-11) % Neutrophils # (Manual) (9919-9333) /uL RBC Morphology Anisocytosis PT (10.1-12.7) SECONDS INR (0.9-1.3) APTT (26-36) SECONDS Sodium (137-145) mmol/L Potassium (3.4-5.1) mmol/L Chloride (98-107) mmol/L Carbon Dioxide (22-32) mmol/L BUN (9-20) mg/dL Creatinine (0.66-1.25) mg/dL Estimated GFR (>60) mL/min BUN/Creatinine Ratio (6-22) Glucose (80-110) mg/dL Lactate (0.7-2.1) mmol/L Calcium (8.4-10.2) mg/dL Total Bilirubin (0.2-1.3) mg/dL AST (17-59) IU/L ALT (<50) IU/L Alkaline Phosphatase (38-126) U/L Total Protein (6.3-8.2) g/dL Albumin (3.5-5.0) g/dL Globulin (1.7-4.1) g/dL Albumin/Globulin Ratio (1.0-2.8) Lipase (23-300) U/L Procalcitonin (<0.5) ng/mL Urine Color Yellow Urine Appearance Clear Urine pH 5.5 (4.5-8.0) Ur Specific Linneus 1.010 (1.000-1.035) Urine Protein Trace H (Negative) Urine Glucose (UA) Negative (Negative) g/dL Urine Ketones Negative (NEGATIVE) Urine Occult Blood Negative (Negative) Urine Nitrate Negative (Negative) Urine Bilirubin Negative (NEGATIVE) Urine Urobilinogen 0.2 (0.2) E.U./dL Ur Leukocyte Esterase Negative (NEGATIVE) Urine RBC None seen (0-5/HPF) Urine WBC None seen (0-5/HPF) Ur Squamous Epith Cells 0-1 /hpf (0-5/HPF) Urine Bacteria None seen (None) Ur Culture Indicated? Cult not indicated U Opiates 300ng/mL cut Negative (Negative) Ur Oxycodone Screen Positive H (Negative) Urine Methadone Screen Negative (Negative) Ur Barbiturates Screen Negative (Negative) U Tricyclic Antidepress Negative (Negative) Ur Phencyclidine Scrn Negative (Negative) Ur Amphetamines Screen Negative (Negative) U Methamphetamines Scrn Negative (Negative) Ur MDMA Scrn (Ecstasy) Negative (Negative) U Benzodiazepines Scrn Negative (Negative) Urine Cocaine Screen Negative (Negative) U Marijuana (THC) Screen Negative (Negative) Blood Type O Positive Antibody Screen Negative Imaging Data CT chest/abd/pelvis: Radiologist's Impression: [address] [address] [address] Scan Report Signed Patient: Erick Álvarez V MR#: [id number] : 1950 Acct:[id number] Age/Sex: 72 / M Date of Service: 02/05/23 Loc: ED Accession Number: [id number] ?? Procedure: CT chest abd pel w con Ordering Provider: Keshia Kate D.O. PROCEDURE:? CT CHEST ABD PEL W CON ? INDICATIONS:? fall yesterday, negative imaging, low O2, abd pain, hx nephr ? TECHNIQUE:? After the administration of intravenous contrast, 5 mm thick sections acquired from the lung apices to the symphysis.? 2.5 mm thick coronal and sagittal reformats were acquired. ?Additional 7 mm thick coronal maximum intensity projection (MIP) reformats acquired through the lungs.? Optional 10-minute delayed imaging may be performed from the kidneys to the bladder.? For radiation dose reduction, the following was used:? automated exposure control, adjustment of mA and/or kV according to patient size.? ? COMPARISON:? [facility], CT, CT CHEST ABD PEL W CON, 02/04/2023, 7:43. ? FINDINGS:? Image quality:? Excellent.? ? CHEST:? Lungs:? No pulmonary contusions or lacerations.? Mild airspace opacity in the left lower lobe, similar to prior.? No pneumothorax or hemothorax.? Central and peripheral airways appear patent and normal in caliber.? ? Mediastinum:? No mediastinal hematomas.? Heart size is normal.? No pericardial effusion.? Thoracic aorta and pulmonary arteries demonstrate normal size and enhancement.? No mediastinal or hilar adenopathy.? Esophagus is normal in caliber.? No hiatal hernia.? ? Chest wall:? No rib fractures.? No subcutaneous emphysema.? No axillary or supraclavicular adenopathy.? Thyroid gland is unremarkable.? Left chest wall generator and intravenous leads.? Gynecomastia.? ? ? ABDOMEN:? Solid organs:? Liver is normal in size and enhancement, without lacerations.? Gallbladder contains sludge.? Biliary system is non-dilated.? Pancreas enhances normally, without transection.? Spleen is enlarged in size and with normal enhancement, without lacerations.? No adrenal hematomas.? Percutaneous right-sided nephrostomy tube.? Similar moderate hydronephrosis and hydroureter. ? Peritoneum and bowel:? No free fluid or air.? Unenhanced bowel loops demonstrate normal wall thickness and caliber.? Colonic diverticulosis without evidence of diverticulitis. ? Nodes and vessels:? Retroperitoneal adenopathy, similar to prior. ? Miscellaneous:? No ventral hernias.? ? ? PELVIS:? Genitourinary:? Bladder wall thickness is normal.? ? Miscellaneous:? Similar right pelvic sidewall mass, encompassing the iliac vasculature and right ureter. ? Bones:? Stable compression deformity of the anterior L3 vertebrae. ? ? IMPRESSION:? Trace consolidation in the left lower lobe, favoring mild infection or aspiration. ? Stable compression deformity of the anterior L3 vertebral body. ? Stable retroperitoneal adenopathy and right pelvic sidewall mass. ? Stable moderate hydronephrosis of the right kidney, status post percutaneous nephrostomy. ? Dictated by: Ramone Anne M.D. on 02/05/2023 at 12:06 ? ? Approved by: Ramone Anne M.D. on 02/05/2023 at 12:15?? ECG Data Attestation: I personally reviewed and interpreted this ECG as follows: Prior ECG tracings: available for review Interpretation: Atrial sensed ventricular paced rhythm rate 83 WI 104 QRS of 166 QTC of 428. No acute ST change. Patient's paced on EKG. Patient has prior from 01/23/23 appears similar. MDM Narrative Medical decision making narrative: 72-year-old male represents after fall yesterday, patient had bustamante scan of head, C-spine chest abdomen pelvis did not show clear changes at that time other than a new or potentially new L3 compression fracture. Patient has had persistent left abdominal pain on examination he is tender all over including on the right side. He was nauseated overnight but not vomiting. Not febrile, no hypotension but reported to be tachy at 108 he has intermittent hypoxia and does use O2 intermittently normally. Patient seems quite uncomfortable he received fentanyl EN route was in the mid 80% range. Patient was noted to have significant leukocytosis, labs were repeated, lactate procalcitonin and cultures were including today. He does have a nephrostomy tube so higher risk for infection. His urine was obtained yesterday did not show infection yesterday we will be recent today. Patient had imaging repeated of chest abdomen pelvis with contrast. Patient's white count is rising his last urine culture showed pain resistance accept her ertapenem and Macrobid so was ordered dose of 1 g of ertapenem here in the department for most likely source of pain and infection. Waiting additional workup. CT chest abdomen pelvis shows possible consolidation/aspiration. Patient has right pelvic sidewall mass and accompanying iliac vasculature and right ureter, moderate hydro of the right kidney status post perc nephrostomy. It is draining regularly. Patient may have pneumonia although she does have abdominal pain. Patient was covered initially with ertapenem. Patient was given some additional broader spectrum antibiotics after discussion hospitalist. Discussed with hospitalist Dr. Veronica who accepts for admission. Discharge Plan Departure Patient Disposition: Admitted As Inpatient Clinical Impression: Pneumonia Admit Date/Time: 02/05/23 13:27 Admit Provider: Adonay Veronica
--- NOTE | 2023-02-05 11:16 | DI.CT.S_ITS ---
PROCEDURE: CT CHEST ABD PEL W CON INDICATIONS: fall yesterday, negative imaging, low O2, abd pain, hx nephr TECHNIQUE: After the administration of intravenous contrast, 5 mm thick sections acquired from the lung apices to the symphysis. 2.5 mm thick coronal and sagittal reformats were acquired. Additional 7 mm thick coronal maximum intensity projection (MIP) reformats acquired through the lungs. Optional 10-minute delayed imaging may be performed from the kidneys to the bladder. For radiation dose reduction, the following was used: automated exposure control, adjustment of mA and/or kV according to patient size. COMPARISON: [facility], CT, CT CHEST ABD PEL W CON, 02/04/2023, 7:43. FINDINGS: Image quality: Excellent. CHEST: Lungs: No pulmonary contusions or lacerations. Mild airspace opacity in the left lower lobe, similar to prior. No pneumothorax or hemothorax. Central and peripheral airways appear patent and normal in caliber. Mediastinum: No mediastinal hematomas. Heart size is normal. No pericardial effusion. Thoracic aorta and pulmonary arteries demonstrate normal size and enhancement. No mediastinal or hilar adenopathy. Esophagus is normal in caliber. No hiatal hernia. Chest wall: No rib fractures. No subcutaneous emphysema. No axillary or supraclavicular adenopathy. Thyroid gland is unremarkable. Left chest wall generator and intravenous leads. Gynecomastia. ABDOMEN: Solid organs: Liver is normal in size and enhancement, without lacerations. Gallbladder contains sludge. Biliary system is non-dilated. Pancreas enhances normally, without transection. Spleen is enlarged in size and with normal enhancement, without lacerations. No adrenal hematomas. Percutaneous right-sided nephrostomy tube. Similar moderate hydronephrosis and hydroureter. Peritoneum and bowel: No free fluid or air. Unenhanced bowel loops demonstrate normal wall thickness and caliber. Colonic diverticulosis without evidence of diverticulitis. Nodes and vessels: Retroperitoneal adenopathy, similar to prior. Miscellaneous: No ventral hernias. PELVIS: Genitourinary: Bladder wall thickness is normal. Miscellaneous: Similar right pelvic sidewall mass, encompassing the iliac vasculature and right ureter. Bones: Stable compression deformity of the anterior L3 vertebrae. IMPRESSION: Trace consolidation in the left lower lobe, favoring mild infection or aspiration. Stable compression deformity of the anterior L3 vertebral body. Stable retroperitoneal adenopathy and right pelvic sidewall mass. Stable moderate hydronephrosis of the right kidney, status post percutaneous nephrostomy. Dictated by: Ramone Anne M.D. on 02/05/2023 at 12:06 Approved by: Ramone Anne M.D. on 02/05/2023 at 12:15
[2023-02-05 11:35] LABS: Hematocrit 30.1 % (41-53); Hemoglobin 9.9 g/dL (13.5-17.5); Mean Corpuscular HGB Conc 32.8 % (30-36); Mean Corpuscular Hemoglobin 27.4 PG (26-34); Mean Corpuscular Volume 83.4 fL (80-100); Platelet Count 197 X10^3/uL (150-400); Red Blood Cell Count 3.61 X10^6/uL (4.5-5.9); Red Cell Distribution Width 15.7 % (11.6-14.8)
[2023-02-05 11:36] LABS: INR 1.4 (0.9-1.3); Prothrombin Time 15.8 SECONDS (10.1-12.7)
[2023-02-05 11:37] LABS: Add Manual Diff / Slide Review YES; White Blood Cell Count 33.7 X10^3/uL (4.5-11.0)
[2023-02-05 11:38] LABS: PTT Partial Thromboplastin Tim 33 SECONDS (26-36)
[2023-02-05 11:39] LABS: Lactate (Lactic Acid) 0.9 mmol/L (0.7-2.1)
[2023-02-05 11:40] LABS: Alanine Aminotransferase 15 IU/L (<50); Albumin 3.6 g/dL (3.5-5.0); Albumin Globulin Ratio 1.2 (1.0-2.8); Alkaline Phosphatase 84 U/L (38-126); Aspartate Aminotransferase 24 IU/L (17-59); BUN Creatinine Ratio 9.4 (6-22); Bilirubin Total 0.8 mg/dL (0.2-1.3); Blood Urea Nitrogen 21 mg/dL (9-20); Calcium 8.4 mg/dL (8.4-10.2); Carbon Dioxide 21 mmol/L (22-32); Chloride 102 mmol/L (98-107); Estimated Glomerular Filt Rate 30 mL/min (>60); Globulin 3.1 g/dL (1.7-4.1); Glucose 197 mg/dL (80-110); HEMOLYSIS < 15 (0-50); Lipase 27 U/L (23-300); Potassium 4.4 mmol/L (3.4-5.1); Sodium 132 mmol/L (137-145); Total Protein 6.7 g/dL (6.3-8.2)
[2023-02-05 11:56] LABS: Neutrophils Absolute Manual 30667 /uL (3000-5900); Total Cells Counted 100
[2023-02-05] MEDS: SODIUM CHLORIDE 0.9% 1,000 ML 500 ML IV (11:59)
[2023-02-05] MEDS: ONDANSETRON 4 MG/2 ML INJ IV (12:00)
[2023-02-05 12:01] LABS: Anisocytosis 1+
[2023-02-05] MEDS: ERTAPENEM 1 GM in SODIUM CHLORIDE 0.9% 100 ML IV (12:19)
[2023-02-05 12:36] LABS: Appearance Urine UA CLEAR; Bilirubin Urine UA NEGATIVE (NEGATIVE); Color Urine UA YELLOW; Glucose Urine UA NEGATIVE (Negative); Ketones Urine UA NEGATIVE (NEGATIVE); Leukocyte Esterase Urine UA NEGATIVE (NEGATIVE); Nitrite Urine UA NEGATIVE (Negative); Occult Blood Urine UA NEGATIVE (Negative); Protein Urine UA TRACE (Negative); Urobilinogen Urine UA 0.2 E.U./dL (0.2); pH Urine UA 5.5 (4.5-8.0)
[2023-02-05 12:41] LABS: Ur Creatinine Normal (Normal); Ur Specific Gravity Normal (Normal); Urine pH Normal (Normal)
[2023-02-05 12:42] LABS: UR Morphine/Opiate cutoff 300 Negative (Negative); Urine Amphetamines Negative (Negative); Urine Barbiturates Negative (Negative); Urine Benzodiazepines Negative (Negative); Urine Cocaine Negative (Negative); Urine MDMA Negative (Negative); Urine Methadone Negative (Negative); Urine Methamphetamines Negative (Negative); Urine Oxycodone Positive (Negative); Urine Phencyclidine Negative (Negative); Urine Tetrahydrocannabinol Negative (Negative); Urine Tricyclic Antidepressant Negative (Negative)
[2023-02-05 13:16] LABS: Bacteria Urine None Seen; Culture Indicated Urine Cult Not Indicated; RBC Urine None Seen (0-5/HPF); Squamous Epithelial Cell Urine 0-1 /HPF (0-5/HPF); WBC Urine None Seen (0-5/HPF)
--- NOTE | 2023-02-05 13:35 | PC.NURSE ---
Called report to ASAD Walker. Pt A&Ox4 on transfer to inpatient unit.
[2023-02-05] MEDS: HYDROMORPHONE 0.5 MG INJ IV (15:04)
[2023-02-05] MEDS: OXYCODONE IR 5 MG TABLET PO ×3 (15:04→23:39)
[2023-02-05] MEDS: SODIUM CHLORIDE 0.9% 1,000 ML 150 ML IV (15:04)
--- NOTE | 2023-02-05 17:33 | P.HP_ITS ---
History of Present Illness History of Present Illness Date Patient Seen: 02/05/23 Time Patient Seen: 16:00 Chief complaint: Fall T-1, Lower abd pain Narrative: Erick Álvarez is a 72yo M with PMH of CAD, chronic hypoxic resp failure, VTE, HTN, Afib s/p AICD on warfarin, aortic stenosis s/p TAVR, Type 2 DM on insulin, prostate cancer with right retroperitoneal mass s/p right nephrostomy tube, ESBL UTI and GERD who presents with left-sided abd pain after fall and hitting his side on his wheelchair. Found to have WBC of 33. CT chest abd pelvis showed L3 compression fracture and possible LLL consolation consistent with PNA. However he denies resp symptoms such as cough or SOB. Given 1g ertapenem in ED given history of ESBL. Patient apparently at O2 sat of mid 80's en route by EMS. He was recently discharged from [facility] for UTI with ESBL E. coli back to [facility]. [facility] Medical History Androgen deprivation therapy Arthritis Atrial fibrillation CAD (coronary artery disease) Chronic anticoagulation Congestive heart failure Depression Diabetes DVT (deep venous thrombosis) Enlarged lymph node First degree AV block GERD (gastroesophageal reflux disease) Gout History of left heart catheterization (12/2019) History of prostate cancer History of radiation therapy History of transcatheter aortic valve replacement (TAVR) (08/01/18) Hydronephrosis, right Hypertension LAFB (left anterior fascicular block) Osteoarthritis Pacemaker Paroxysmal A-fib Prostate cancer RBBB Sleep apnea Stress incontinence Stress incontinence, male Surgical History AICD (automatic cardioverter/defibrillator) present (12/30/20) H/O aortic valve replacement History of back surgery Hx of heart artery stent Family History Mother Coronary artery disease involving bypass graft of transplanted heart Cancer Hypertension Social History marital status: number of children: 3 household members: none Previous occupational history: retired Smoking Status: Former smoker alcohol intake: never caffeine: Yes Meds Home Medications and Allergies Home Medications Medication Instructions Recorded Confirmed Type acetaminophen 325 mg tablet 650 mg PO Q4H PRN pain 06/13/22 02/05/23 History atorvastatin 40 mg tablet 40 mg PO BEDTIME 06/13/22 02/05/23 History calcium carbonate 215 mg calcium 500 mg DAILY 06/13/22 02/05/23 History (500 mg) chewable tablet (Antacid (calcium carbonate)) ferrous sulfate 325 mg (65 mg 325 mg PO DAILY 06/13/22 02/05/23 History iron) tablet furosemide 40 mg tablet 40 mg PO DAILY 06/13/22 02/05/23 History gabapentin 300 mg tablet 600 mg PO BID 06/13/22 02/05/23 History insulin glargine 100 unit/mL 10 unit SUBCUT QPM 06/13/22 02/05/23 History subcutaneous cartridge insulin lispro 100 unit/mL 1 sliding scale dose SUBCUT 06/13/22 02/05/23 History subcutaneous cartridge USEASDIRECTD lisinopril 2.5 mg tablet 2.5 mg PO DAILY 06/13/22 02/05/23 History metoprolol succinate 25 mg 12.5 mg PO DAILY 06/13/22 02/05/23 History tablet,extended release 24 hr pantoprazole 40 mg tablet,delayed 40 mg PO DAILY 06/13/22 02/05/23 History release pramipexole 0.5 mg tablet 0.5 mg PO DAILY 06/13/22 02/05/23 History ropinirole 1 mg tablet 1.5 mg PO BID 06/13/22 02/05/23 History sertraline 50 mg tablet 50 mg PO DAILY 06/13/22 02/05/23 History tolterodine 4 mg capsule,extended 4 mg PO DAILY 06/13/22 02/05/23 History release 24 hr hydroxyzine pamoate 25 mg capsule 25 mg PO PRN PRN Sleep 08/03/22 02/05/23 History (Vistaril) hydrocodone 5 mg-acetaminophen 325 2 tab PO Q6H PRN pain #30 tabs 10/18/22 02/05/23 Rx mg tablet bicalutamide 50 mg tablet 50 mg PO DAILY 12/14/22 02/05/23 History ondansetron 4 mg disintegrating 8 mg PO Q6H PRN Nausea 12/14/22 02/05/23 History tablet ropinirole 2 mg tablet 2 mg PO BEDTIME 12/14/22 02/05/23 History spironolactone 25 mg tablet 25 mg PO BID 12/14/22 02/05/23 History sennosides 8.6 mg tablet (senna) 17.2 mg PO BEDTIME #30 tabs 01/27/23 02/05/23 Rx Allergies Allergy/AdvReac Type Severity Reaction Status Date / Time crab Allergy Severe Deathly Verified 02/05/23 10:58 sick aspartame Allergy Unknown Verified 02/05/23 10:58 carbidopa Allergy Hallucinations, Verified 02/05/23 10:58 anxiety morphine AdvReac Nausea/vomi Verified 02/05/23 10:58 ting Review of Systems Review of Systems Narrative: All other systems reviewed with the patient and are negative unless otherwise stated. Exam Vital Signs (past 8 hours): - 02/05/23 10:50 02/05/23 10:59 02/05/23 12:25 Temperature 98.1 F Pulse Rate 87 78 Respiratory Rate 93 H 18 16 Blood Pressure 114/56 L 133/65 Pulse Oximetry 85 L 98 96 Oxygen Delivery Method Room Air Nasal Cannula Nasal Cannula Oxygen Flow Rate 4 2 02/05/23 11:00 02/05/23 11:15 02/05/23 11:30 Temperature Pulse Rate 82 82 81 Respiratory Rate 23 24 25 H Blood Pressure 120/57 L 116/56 L 109/57 L Pulse Oximetry 97 96 98 Oxygen Delivery Method Room Air Room Air Room Air Oxygen Flow Rate 02/05/23 11:45 02/05/23 12:00 02/05/23 12:15 Temperature Pulse Rate 79 81 Respiratory Rate 22 27 H Blood Pressure 124/59 L 133/65 Pulse Oximetry 96 96 Oxygen Delivery Method Room Air Room Air Oxygen Flow Rate 02/05/23 12:30 02/05/23 12:45 02/05/23 13:00 Temperature Pulse Rate 77 87 Respiratory Rate 23 Blood Pressure 121/58 L 120/59 L Pulse Oximetry 96 95 Oxygen Delivery Method Room Air Room Air Oxygen Flow Rate 02/05/23 15:20 Temperature 98 F Pulse Rate 88 Respiratory Rate 20 Blood Pressure 123/62 Pulse Oximetry 97 Oxygen Delivery Method Oxygen Flow Rate 0 Oxygen Delivery Method Room Air Oxygen Flow Rate 0 Narrative Exam Narrative: GEN: no acute distress, obese male with poor hygeine HEENT: dry mucous membranes, PERRL NECK: trachea midline, no JVD CV: irregularly irregular, no murmurs PULM: clear bilaterally ABD: protuberant, tender in left abdomen, nondistended, no organomegaly EXT: warm and well perfused with no edema NEURO: awake, alert, oriented, no focal deficits Objective Labs 02/05/23 10:55 02/05/23 10:55 Labs: Laboratory Results - last 24 hr 02/05/23 02/05/23 02/05/23 10:55 10:55 10:55 WBC 33.7 H* D RBC 3.61 L Hgb 9.9 L Hct 30.1 L MCV 83.4 MCH 27.4 MCHC 32.8 RDW 15.7 H Plt Count 197 Neut % (Auto) Not Reportable Lymph % (Auto) Not Reportable [place] % (Auto) Not Reportable Eos % (Auto) Not Reportable Baso % (Auto) Not Reportable Lymph # (Auto) Not Reportable [place] # (Auto) Not Reportable Baso # (Auto) Not Reportable Total Counted 100 Seg Neutrophils % 91.0 H Lymphocytes % (Manual) 4.0 L Monocytes % (Manual) 5.0 Neutrophils # (Manual) 50080 H RBC Morphology See below Anisocytosis 1+ H PT 15.8 H INR 1.4 H APTT 33 Sodium 132 L Potassium 4.4 Chloride 102 Carbon Dioxide 21 L BUN 21 H Creatinine 2.24 H Estimated GFR 30 L BUN/Creatinine Ratio 9.4 Glucose 197 H Lactate Calcium 8.4 Total Bilirubin 0.8 AST 24 ALT 15 Alkaline Phosphatase 84 Total Protein 6.7 Albumin 3.6 Globulin 3.1 Albumin/Globulin Ratio 1.2 Lipase 27 Procalcitonin Urine Color Urine Appearance Urine pH Ur Specific [place] Urine Protein Urine Glucose (UA) Urine Ketones Urine Occult Blood Urine Nitrate Urine Bilirubin Urine Urobilinogen Ur Leukocyte Esterase Urine RBC Urine WBC Ur Squamous Epith Cells Urine Bacteria Ur Culture Indicated? U Opiates 300ng/mL cut Ur Oxycodone Screen Urine Methadone Screen Ur Barbiturates Screen U Tricyclic Antidepress Ur Phencyclidine Scrn Ur Amphetamines Screen U Methamphetamines Scrn Ur MDMA Scrn (Ecstasy) U Benzodiazepines Scrn Urine Cocaine Screen U Marijuana (THC) Screen Blood Type Antibody Screen 02/05/23 02/05/23 02/05/23 10:55 10:55 11:17 WBC RBC Hgb Hct MCV MCH MCHC RDW Plt Count Neut % (Auto) Lymph % (Auto) [place] % (Auto) Eos % (Auto) Baso % (Auto) Lymph # (Auto) [place] # (Auto) Baso # (Auto) Total Counted Seg Neutrophils % Lymphocytes % (Manual) Monocytes % (Manual) Neutrophils # (Manual) RBC Morphology Anisocytosis PT INR APTT Sodium Potassium Chloride Carbon Dioxide BUN Creatinine Estimated GFR BUN/Creatinine Ratio Glucose Lactate 0.9 Cancelled Calcium Total Bilirubin AST ALT Alkaline Phosphatase Total Protein Albumin Globulin Albumin/Globulin Ratio Lipase Procalcitonin 1.30 H Urine Color Urine Appearance Urine pH Ur Specific [place] Urine Protein Urine Glucose (UA) Urine Ketones Urine Occult Blood Urine Nitrate Urine Bilirubin Urine Urobilinogen Ur Leukocyte Esterase Urine RBC Urine WBC Ur Squamous Epith Cells Urine Bacteria Ur Culture Indicated? U Opiates 300ng/mL cut Ur Oxycodone Screen Urine Methadone Screen Ur Barbiturates Screen U Tricyclic Antidepress Ur Phencyclidine Scrn Ur Amphetamines Screen U Methamphetamines Scrn Ur MDMA Scrn (Ecstasy) U Benzodiazepines Scrn Urine Cocaine Screen U Marijuana (THC) Screen Blood Type Antibody Screen 02/05/23 02/05/23 02/05/23 11:54 12:20 12:20 WBC RBC Hgb Hct MCV MCH MCHC RDW Plt Count Neut % (Auto) Lymph % (Auto) [place] % (Auto) Eos % (Auto) Baso % (Auto) Lymph # (Auto) [place] # (Auto) Baso # (Auto) Total Counted Seg Neutrophils % Lymphocytes % (Manual) Monocytes % (Manual) Neutrophils # (Manual) RBC Morphology Anisocytosis PT INR APTT Sodium Potassium Chloride Carbon Dioxide BUN Creatinine Estimated GFR BUN/Creatinine Ratio Glucose Lactate Calcium Total Bilirubin AST ALT Alkaline Phosphatase Total Protein Albumin Globulin Albumin/Globulin Ratio Lipase Procalcitonin Urine Color Yellow Urine Appearance Clear Urine pH 5.5 Ur Specific [place] 1.010 Urine Protein Trace H Urine Glucose (UA) Negative Urine Ketones Negative Urine Occult Blood Negative Urine Nitrate Negative Urine Bilirubin Negative Urine Urobilinogen 0.2 Ur Leukocyte Esterase Negative Urine RBC None seen Urine WBC None seen Ur Squamous Epith Cells 0-1 /hpf Urine Bacteria None seen Ur Culture Indicated? Cult not indicated U Opiates 300ng/mL cut Negative Ur Oxycodone Screen Positive H Urine Methadone Screen Negative Ur Barbiturates Screen Negative U Tricyclic Antidepress Negative Ur Phencyclidine Scrn Negative Ur Amphetamines Screen Negative U Methamphetamines Scrn Negative Ur MDMA Scrn (Ecstasy) Negative U Benzodiazepines Scrn Negative Urine Cocaine Screen Negative U Marijuana (THC) Screen Negative Blood Type O Positive Antibody Screen Negative Assessment & Plan Assessment & Plan narrative: # sepsis secondary to community acquired pneumonia -WBC 33, tachy to 106, RR 27. Procal 1.3. -LLL consolation on CT suggestive of aspiration -continue meropenem given ESBL history -trend CBC # chronic hypoxic resp failure -uses 1-2L NC intermittently # prostate cancer s/p right nephrostomy tube due to right retroperitoneal mass -followed by Dr. Barker urology # h/o ESBL UTI -contact precautions -UA negative for infection # GLENN on CKD stage 3 -baseline creatinine is not clear, but appears to be around 2 -creatinine on admit 2.24 -careful with nephrotoxic agents -suspect secondary to hypovolemia -continue IVF # History of PE, afib -continue warfarin per pharmacy # Type 2 DM on insulin -home dose insulin is 55U daily -for now order for 45U daily -insulin sliding scale ordered -hold metformin # CAD s/p stents -continue plavix, spironolactone, lisinopril, metoprolol # Depression, possible restless leg syndrome -continue home mirapex, tolterodine, zoloft, ropinirole, pramipexole Code status is DNR. DVT prophylaxis with warfarin. Proxy is Arlet daughter. I have reviewed home meds and used all available resources to reconcile the home meds. This patient will be admitted as inpatient and will require greater than 2 midnights of hospital time to treat pneumonia. Quality VTE Deep Vein Thrombosis/Pulmonary Embolism Present on Admission: No
[2023-02-05] MEDS: ACETAMINOPHEN 325 MG TABLET 650 MG PO (19:55)
[2023-02-05] MEDS: MELATONIN 3 MG TABLET 6 MG PO (20:23)
[2023-02-05] MEDS: INSULIN GLARGINE 100 UNIT/ML 3ML PEN 45 UNIT SUBCUT (20:23)
[2023-02-05] MEDS: hydrOXYzine pamoate 25 MG CAPSULE PO (20:23)
[2023-02-05] MEDS: WARFARIN 5 MG TABLET PO (20:23)
[2023-02-05] MEDS: HEPARIN 5,000 UNIT/ML VIAL 5000 UNIT SUBCUT (20:24)
[2023-02-05] MEDS: ATORVASTATIN 20 MG TABLET 40 MG PO (20:24)
[2023-02-05] MEDS: GABAPENTIN 600 MG TABLET PO (20:24)
[2023-02-05] MEDS: PRAMIPEXOLE 0.25 MG TABLET 0.5 MG PO (20:24)
[2023-02-05] MEDS: ROPINIROLE 1 MG TABLET 2 MG PO (20:24)
[2023-02-05] MEDS: SENNOSIDES 8.6 MG TABLET 17.2 MG PO (20:25)
[2023-02-05] MEDS: SPIRONOLACTONE 25 MG TABLET PO (20:25)
[2023-02-06] MEDS: ONDANSETRON 4 MG/2 ML INJ IV ×2 (00:49→05:22)
[2023-02-06] MEDS: HYDROMORPHONE 0.5 MG INJ IV ×3 (00:49→20:54)
[2023-02-06] MEDS: OXYCODONE IR 5 MG TABLET PO ×2 (04:56→13:57)
[2023-02-06] MEDS: ACETAMINOPHEN 325 MG TABLET 650 MG PO (04:56)
[2023-02-06 05:01] LABS: Hematocrit 26.6 % (41-53); Hemoglobin 8.6 g/dL (13.5-17.5); Mean Corpuscular HGB Conc 32.5 % (30-36); Mean Corpuscular Hemoglobin 27.2 PG (26-34); Mean Corpuscular Volume 83.5 fL (80-100); Platelet Count 172 X10^3/uL (150-400); Red Blood Cell Count 3.18 X10^6/uL (4.5-5.9); Red Cell Distribution Width 15.9 % (11.6-14.8); White Blood Cell Count 28.1 X10^3/uL (4.5-11.0)
[2023-02-06 05:10] LABS: INR 1.6 (0.9-1.3)
[2023-02-06 05:13] VITALS: BP 109/51; PULSE 80; RESP 20; TEMP 36.6; O2SAT 94
[2023-02-06 05:20] LABS: BUN Creatinine Ratio 8.8 (6-22); Blood Urea Nitrogen 29 mg/dL (9-20); Calcium 7.8 mg/dL (8.4-10.2); Carbon Dioxide 19 mmol/L (22-32); Chloride 103 mmol/L (98-107); Estimated Glomerular Filt Rate 19 mL/min (>60); Glucose 121 mg/dL (80-110); HEMOLYSIS < 15 (0-50); Potassium 4.2 mmol/L (3.4-5.1); Sodium 132 mmol/L (137-145)
[2023-02-06] MEDS: PANTOPRAZOLE DR 40 MG TABLET PO (05:22)
[2023-02-06] MEDS: PANTOPRAZOLE DR 20 MG TABLET PO (05:22)
[2023-02-06 05:23] LABS: Add Manual Diff / Slide Review YES
[2023-02-06 05:24] LABS: Neutrophils Absolute Manual 26133 /uL (3000-5900); Total Cells Counted 100
[2023-02-06 05:26] LABS: Anisocytosis 1+; Hypersegmented Neutrophils 1+; Ovalocytes 1+
[2023-02-06 05:36] LABS: Procalcitonin 1.87 ng/mL (<0.5)
[2023-02-06] MEDS: HEPARIN 5,000 UNIT/ML VIAL 5000 UNIT SUBCUT ×2 (08:45→20:54)
[2023-02-06] MEDS: FERROUS SULFATE 325 MG TABLET PO (08:45)
[2023-02-06] MEDS: GABAPENTIN 600 MG TABLET PO ×2 (08:45→20:55)
[2023-02-06] MEDS: ROPINIROLE 1 MG TABLET 1.5 MG PO ×2 (08:48→12:00)
[2023-02-06] MEDS: MEROPENEM 1 GM in SODIUM CHLORIDE 0.9% 100 ML IV ×2 (08:48→21:09)
[2023-02-06 08:57] VITALS: BP 92/42; PULSE 74; RESP 18; TEMP 35.9; O2SAT 97
[2023-02-06] MEDS: SODIUM CHLORIDE 0.9% 500 ML IV (09:49)
[2023-02-06 09:50] LABS: Appearance Urine UA CLEAR; Bilirubin Urine UA NEGATIVE (NEGATIVE); Color Urine UA YELLOW; Glucose Urine UA NEGATIVE (Negative); Ketones Urine UA NEGATIVE (NEGATIVE); Leukocyte Esterase Urine UA NEGATIVE (NEGATIVE); Nitrite Urine UA NEGATIVE (Negative); Occult Blood Urine UA NEGATIVE (Negative); Protein Urine UA NEGATIVE (Negative); Urobilinogen Urine UA 0.2 E.U./dL (0.2)
[2023-02-06 10:07] LABS: Appearance Urine UA CLEAR; Bilirubin Urine UA NEGATIVE (NEGATIVE); Glucose Urine UA NEGATIVE (Negative); Ketones Urine UA NEGATIVE (NEGATIVE); Leukocyte Esterase Urine UA 2+ (NEGATIVE); Nitrite Urine UA NEGATIVE (Negative); Occult Blood Urine UA 2+ (Negative); Protein Urine UA TRACE (Negative); Urobilinogen Urine UA 0.2 E.U./dL (0.2); pH Urine UA 7.5 (4.5-8.0)
[2023-02-06 10:10] LABS: Color Urine UA YELLOW
[2023-02-06 10:13] LABS: RBC Urine None Seen (0-5/HPF); Squamous Epithelial Cell Urine 1-5 /HPF (0-5/HPF); WBC Urine 1-5/HPF (0-5/HPF)
[2023-02-06 10:18] LABS: Bacteria Urine Many (>30); RBC Urine 0-1/HPF (0-5/HPF); Squamous Epithelial Cell Urine None Seen (0-5/HPF); WBC Urine None Seen (0-5/HPF)
[2023-02-06 11:04] LABS: Bacteria Urine None Seen; Culture Indicated Urine Cult Not Indicated
[2023-02-06 11:06] LABS: Culture Indicated Urine Specimen Cultured
[2023-02-06 12:00] VITALS: BP 91/55; PULSE 73; RESP 18; TEMP 35.9; O2SAT 92
[2023-02-06] MEDS: LINEZOLID 600 MG TABLET PO ×2 (12:13→20:55)
[2023-02-06] MEDS: SODIUM CHLORIDE 0.9% 1,000 ML 150 ML IV (12:33)
[2023-02-06] MEDS: hydrOXYzine pamoate 25 MG CAPSULE PO ×2 (13:57→20:55)
--- NOTE | 2023-02-06 14:50 | CM.DANOTE ---
DCP Assessment Note: Brief Patient is a 72yo male with a long PMH. Currently here being treated for pneumonia/sepsis. PCP Vandana Burton Payer AARP Medicare and Medicaid Per nursing staff, patient is improving for what he came in for, however, patient has a long list of co-morbidities that are impacting his overall health. Patient's overall health appears to be declining. Per provider, likely here a few days. TECHNICAL SALES CONSULTANT reviewed EMR. Patient was here end of November, 01/23-01/27, in the ER/d.c from the ER 02/04, and then admitted to the floor again 02/05. TECHNICAL SALES CONSULTANT entered room and introduced self and role. Patient was not able to fully open his eyes, reports being in a lot of pain today. Patient was significantly less able to communicate his needs during this interactions than in previous ones with this author. In previous d/c assessments, he has told CM team that he lives at [facility]. His daughter (DPOA?) and emergency contact, Arlet ([phone]) lives in [place]. Patient uses a FWW at baseline. Patient does not drive. Patient has been needing increasing care from [facility] due to increasing health care needs. Plan: likely to return to [facility] upon d/c. CM team will continue to follow closely. CM team will complete a more comprehensive assessment when patient is more alert. CM team will notify [facility] with clearer pictures of the d/c timeline when available. JAYLEN Damon Discharge Planning/Care Management CM Discharge Assessment Start: 02/06/23 14:47 Freq: Status: Active Protocol: Document 02/06/23 14:47 DAVIN (Rec: 02/06/23 14:50 [id number]) Discharge Planning Assessment Assigned Rug Washer JAYLEN Robledo DPOA/Assigned Designee Name Arlet Bueno (daughter) Contact Information [phone] Advance Directives? Yes: POLST Advance Directives on File Yes History Provided By Medical Record Prior Living Arrangements Assisted Living Household Members none Type of transporation used prior to Relies on Others admit Facility Name Admitted From: [facility] Willing to Return to Facility? Yes Independent with ADL's No Is patient alert and oriented? No Needs Assistance With Bathing,Meal Prep,Managing Medications,Home Chores / Shopping DME Already Rented / Owned Wheelchair,Elevated Toilet Seat,FWW / Walker Comment open to SNF, prefers [facility] Comment Back to [facility] when medically cleared Discharge Plan Assisted Living Facility Transportation Arrangement [facility] transport at d/c Referrals Initiated None needed Additional Comment At this time. May consider Hospice SNF/HH Preference Preference in the past has been SNF at [facility] Whiteboard Updated in Patient Room with No name and ext. # of Rug Washer Review Status In Process Next Review Type Continued Stay Review
--- NOTE | 2023-02-06 15:04 | PM.PN.1 ---
Subjective Subjective Date Patient Seen: 02/06/23 Time Patient Seen: 08:00 Interval history: He really doesnt feel well still. He has abdominal pain. Exam Vital Signs (past 8 hours): - 02/06/23 08:57 02/06/23 12:00 Temperature 96.7 F L 96.7 F L Pulse Rate 74 73 Respiratory Rate 18 18 Blood Pressure 92/42 L 91/55 L Pulse Oximetry 97 92 Oxygen Flow Rate 0 0 Oxygen Delivery Method Room Air Oxygen Flow Rate 0 Narrative Exam Narrative: GEN: no acute distress HEENT: dry mucous membranes CV: irregularly irregular, no murmurs PULM: clear bilaterally ABD:abdominal tenderness on left side EXT: warm and well perfused with no edema NEURO: awake, alert, oriented, no focal deficits Objective Labs 02/06/23 04:25 02/06/23 04:25 Labs: Laboratory Results - last 24 hr 02/06/23 02/06/23 02/06/23 04:25 04:25 04:25 WBC 28.1 H RBC 3.18 L Hgb 8.6 L Hct 26.6 L MCV 83.5 MCH 27.2 MCHC 32.5 RDW 15.9 H Plt Count 172 Neut % (Auto) Not Reportable Lymph % (Auto) Not Reportable [place] % (Auto) Not Reportable Eos % (Auto) Not Reportable Baso % (Auto) Not Reportable Lymph # (Auto) Not Reportable [place] # (Auto) Not Reportable Baso # (Auto) Not Reportable Total Counted 100 Seg Neutrophils % 92.0 H Band Neutrophils % 1.0 L Lymphocytes % (Manual) 2.0 L Monocytes % (Manual) 5.0 Neutrophils # (Manual) 93780 H Hypersegmented Neuts 1+ RBC Morphology See below Anisocytosis 1+ H Ovalocytes 1+ H PT INR Sodium 132 L Potassium 4.2 Chloride 103 Carbon Dioxide 19 L BUN 29 H Creatinine 3.28 H Estimated GFR 19 L BUN/Creatinine Ratio 8.8 Glucose 121 H Calcium 7.8 L Procalcitonin 1.87 H Urine Color Urine Appearance Urine pH Ur Specific [place] Urine Protein Urine Glucose (UA) Urine Ketones Urine Occult Blood Urine Nitrate Urine Bilirubin Urine Urobilinogen Ur Leukocyte Esterase Urine RBC Urine WBC Ur Squamous Epith Cells Urine Bacteria Ur Culture Indicated? 02/06/23 02/06/23 02/06/23 04:25 09:10 09:45 WBC RBC Hgb Hct MCV MCH MCHC RDW Plt Count Neut % (Auto) Lymph % (Auto) [place] % (Auto) Eos % (Auto) Baso % (Auto) Lymph # (Auto) [place] # (Auto) Baso # (Auto) Total Counted Seg Neutrophils % Band Neutrophils % Lymphocytes % (Manual) Monocytes % (Manual) Neutrophils # (Manual) Hypersegmented Neuts RBC Morphology Anisocytosis Ovalocytes PT 18.0 H INR 1.6 H Sodium Potassium Chloride Carbon Dioxide BUN Creatinine Estimated GFR BUN/Creatinine Ratio Glucose Calcium Procalcitonin Urine Color Yellow Yellow Urine Appearance Clear Clear Urine pH 5.0 7.5 D Ur Specific [place] 1.020 1.010 Urine Protein Negative Trace H Urine Glucose (UA) Negative Negative Urine Ketones Negative Negative Urine Occult Blood Negative 2+ H Urine Nitrate Negative Negative Urine Bilirubin Negative Negative Urine Urobilinogen 0.2 0.2 Ur Leukocyte Esterase Negative 2+ H Urine RBC None seen 0-1/hpf Urine WBC 1-5/hpf None seen Ur Squamous Epith Cells 1-5 /hpf None seen Urine Bacteria None seen Many (>30) H D Ur Culture Indicated? Cult not indicated Specimen cultured PFSH Medical History Androgen deprivation therapy Arthritis Atrial fibrillation CAD (coronary artery disease) Chronic anticoagulation Congestive heart failure Depression Diabetes DVT (deep venous thrombosis) Enlarged lymph node First degree AV block GERD (gastroesophageal reflux disease) Gout History of left heart catheterization (12/2019) History of prostate cancer History of radiation therapy History of transcatheter aortic valve replacement (TAVR) (08/01/18) Hydronephrosis, right Hypertension LAFB (left anterior fascicular block) Osteoarthritis Pacemaker Paroxysmal A-fib Prostate cancer RBBB Sleep apnea Stress incontinence Stress incontinence, male Surgical History AICD (automatic cardioverter/defibrillator) present (12/30/20) H/O aortic valve replacement History of back surgery Hx of heart artery stent Family History Mother Coronary artery disease involving bypass graft of transplanted heart Cancer Hypertension Social History marital status: number of children: 3 household members: none Previous occupational history: retired Smoking Status: Former smoker alcohol intake: never caffeine: Yes Assessment & Plan Assessment & Plan narrative: # sepsis secondary to community acquired pneumonia vs UTI -send for urine from both clean catch and nephrostomy tube today -WBC 33, tachy to 106, RR 27. Procal 1.3. -LLL consolation on CT suggestive of aspiration -continue meropenem given ESBL history -added linezolid on 02/06 due to rising procal and continued leukocytosis -continue IV fluid -stop diuretics # GLENN on CKD stage 3 -baseline creatinine is not clear, but appears to be around 2 -creatinine on admit 2.24, rising to over 3 on 02/06 -careful with nephrotoxic agents -suspect secondary to hypovolemia -stop diuretics -continue IVF # chronic hypoxic resp failure -uses 1-2L NC intermittently # prostate cancer s/p right nephrostomy tube due to right retroperitoneal mass -followed by Dr. Barker urology -continue casodex # History of PE, afib -continue warfarin per pharmacy # Type 2 DM on insulin -home dose insulin is 55U daily -for now order for 45U daily -insulin sliding scale ordered -hold metformin # CAD s/p stents -continue plavix, spironolactone, lisinopril, metoprolol # Depression, possible restless leg syndrome -continue home mirapex, tolterodine, zoloft, ropinirole, pramipexole Quality VTE Deep Vein Thrombosis/Pulmonary Embolism Present on Admission: No
--- NOTE | 2023-02-06 16:22 | PC.NURSE ---
Urine Sample results per lab: 0910 result from bladder 0945 result from nephrostomy
[2023-02-06] MEDS: WARFARIN 5 MG TABLET PO (17:17)
[2023-02-06] MEDS: SODIUM CHLORIDE 0.9% 1,000 ML 125 ML IV (18:25)
[2023-02-06 19:40] VITALS: BP 111/43; PULSE 77; RESP 18; TEMP 36.2; O2SAT 91
[2023-02-06] MEDS: MELATONIN 3 MG TABLET 6 MG PO (20:55)
[2023-02-06] MEDS: ROPINIROLE 1 MG TABLET 2 MG PO (20:55)
[2023-02-06] MEDS: PRAMIPEXOLE 0.25 MG TABLET 0.5 MG PO (20:55)
[2023-02-06] MEDS: ATORVASTATIN 20 MG TABLET 40 MG PO (20:55)
[2023-02-06] MEDS: INSULIN GLARGINE 100 UNIT/ML 3ML PEN 45 UNIT SUBCUT (20:58)
[2023-02-07] MEDS: HYDROMORPHONE 0.5 MG INJ IV ×3 (03:09→18:40)
[2023-02-07 03:24] VITALS: BP 99/43; PULSE 70; RESP 18; TEMP 36.3; O2SAT 94
[2023-02-07 05:46] LABS: Prothrombin Time 22.8 SECONDS (10.1-12.7)
[2023-02-07 05:50] LABS: Add Manual Diff / Slide Review NO; Basophils Absolute Auto 100 /uL (0-100); Basophils Percent Auto 0.3 % (0-2); Eosinophils Absolute Auto 200 /uL (0-450); Eosinophils Percent Auto 0.8 % (2-4); Hematocrit 23.3 % (41-53); Hemoglobin 7.7 g/dL (13.5-17.5); Lymphocytes Absolute Auto 800 /uL (1100-4500); Lymphocytes Percent Auto 4.4 % (25-40); Mean Corpuscular HGB Conc 33.1 % (30-36); Mean Corpuscular Hemoglobin 27.8 PG (26-34); Mean Corpuscular Volume 83.8 fL (80-100); Monocytes Absolute Auto 800 /uL (0-900); Monocytes Percent Auto 4.4 % (3-14); Neutrophils Absolute Auto 16900 /uL (1500-7000); Neutrophils Percent Auto 90.1 % (50-75); Platelet Count 159 X10^3/uL (150-400); Red Blood Cell Count 2.79 X10^6/uL (4.5-5.9); Red Cell Distribution Width 15.8 % (11.6-14.8); White Blood Cell Count 18.8 X10^3/uL (4.5-11.0)
[2023-02-07 05:54] LABS: BUN Creatinine Ratio 6.9 (6-22); Blood Urea Nitrogen 33 mg/dL (9-20); Calcium 7.4 mg/dL (8.4-10.2); Carbon Dioxide 17 mmol/L (22-32); Chloride 107 mmol/L (98-107); Estimated Glomerular Filt Rate 12 mL/min (>60); Glucose 74 mg/dL (80-110); HEMOLYSIS < 15 (0-50); Potassium 3.9 mmol/L (3.4-5.1); Sodium 134 mmol/L (137-145)
[2023-02-07] MEDS: PANTOPRAZOLE DR 40 MG TABLET PO (06:04)
[2023-02-07] MEDS: ONDANSETRON 4 MG/2 ML INJ IV ×2 (06:04→23:08)
[2023-02-07 06:08] LABS: Procalcitonin 1.56 ng/mL (<0.5)
[2023-02-07] MEDS: GABAPENTIN 600 MG TABLET PO ×2 (08:20→22:01)
[2023-02-07] MEDS: FERROUS SULFATE 325 MG TABLET PO (08:20)
[2023-02-07] MEDS: BICALUTAMIDE 50 MG TABLET PO (08:20)
[2023-02-07] MEDS: HEPARIN 5,000 UNIT/ML VIAL 5000 UNIT SUBCUT ×2 (08:20→22:06)
[2023-02-07] MEDS: LINEZOLID 600 MG TABLET PO ×2 (08:21→22:05)
[2023-02-07] MEDS: MEROPENEM 1 GM in SODIUM CHLORIDE 0.9% 100 ML IV ×2 (08:21→22:05)
[2023-02-07] MEDS: ROPINIROLE 1 MG TABLET 1.5 MG PO ×2 (08:28→14:53)
[2023-02-07 08:44] LABS: Creatinine Urine Random 207.8 mg/dL; Sodium Urine Random 8 mmol/L (30-90)
[2023-02-07] MEDS: SODIUM CHLORIDE 0.9% 1,000 ML 125 ML IV (10:00)
[2023-02-07] MEDS: OXYCODONE IR 5 MG TABLET PO ×3 (10:37→22:03)
[2023-02-07 12:00] VITALS: BP 91/46; PULSE 71; RESP 19; TEMP 36.1; O2SAT 97
--- NOTE | 2023-02-07 12:38 | P.PN_ITS ---
Subjective Subjective Date Patient Seen: 02/07/23 Time Patient Seen: 08:00 Interval history: His biggest concern is his left sided abdominal pain. His urine output remains poor. Exam Vital Signs (past 8 hours): - 02/07/23 12:00 Temperature 97 F L Pulse Rate 71 Respiratory Rate 19 Blood Pressure 91/46 L Pulse Oximetry 97 Oxygen Flow Rate 0 Oxygen Delivery Method Room Air Oxygen Flow Rate 0 Narrative Exam Narrative: GEN: no acute distress HEENT: dry mucous membranes CV: irregularly irregular, no murmurs PULM: clear bilaterally ABD:abdominal tenderness on left side EXT: warm and well perfused with no edema NEURO: awake, alert, oriented, no focal deficits Objective Labs 02/07/23 04:45 02/07/23 04:45 Labs: Laboratory Results - last 24 hr 02/06/23 02/06/23 02/07/23 09:10 09:45 04:45 WBC RBC Hgb Hct MCV MCH MCHC RDW Plt Count Neut % (Auto) Lymph % (Auto) [place] % (Auto) Eos % (Auto) Baso % (Auto) Neut # (Auto) Lymph # (Auto) [place] # (Auto) Eos # (Auto) Baso # (Auto) PT INR Sodium Potassium Chloride Carbon Dioxide BUN Creatinine Estimated GFR BUN/Creatinine Ratio Glucose Calcium Procalcitonin 1.56 H Urine Color Yellow Urine Appearance Clear Urine pH 7.5 D Ur Specific [place] 1.010 Urine Protein Trace H Urine Glucose (UA) Negative Urine Ketones Negative Urine Occult Blood 2+ H Urine Nitrate Negative Urine Bilirubin Negative Urine Urobilinogen 0.2 Ur Leukocyte Esterase 2+ H Urine RBC 0-1/hpf Urine WBC None seen Ur Squamous Epith Cells None seen Urine Bacteria Many (>30) H D Ur Culture Indicated? Specimen cultured Ur Random Sodium 8 L Urine Creatinine 207.8 02/07/23 02/07/23 02/07/23 04:45 04:45 04:45 WBC 18.8 H RBC 2.79 L Hgb 7.7 L Hct 23.3 L MCV 83.8 MCH 27.8 MCHC 33.1 RDW 15.8 H Plt Count 159 Neut % (Auto) 90.1 H Lymph % (Auto) 4.4 L [place] % (Auto) 4.4 Eos % (Auto) 0.8 L Baso % (Auto) 0.3 Neut # (Auto) 55393 H Lymph # (Auto) 800 L [place] # (Auto) 800 Eos # (Auto) 200 Baso # (Auto) 100 PT 22.8 H INR 2.0 H Sodium 134 L Potassium 3.9 Chloride 107 Carbon Dioxide 17 L BUN 33 H Creatinine 4.76 H Estimated GFR 12 L BUN/Creatinine Ratio 6.9 Glucose 74 L Calcium 7.4 L Procalcitonin Urine Color Urine Appearance Urine pH Ur Specific [place] Urine Protein Urine Glucose (UA) Urine Ketones Urine Occult Blood Urine Nitrate Urine Bilirubin Urine Urobilinogen Ur Leukocyte Esterase Urine RBC Urine WBC Ur Squamous Epith Cells Urine Bacteria Ur Culture Indicated? Ur Random Sodium Urine Creatinine PFSH Medical History Androgen deprivation therapy Arthritis Atrial fibrillation CAD (coronary artery disease) Chronic anticoagulation Congestive heart failure Depression Diabetes DVT (deep venous thrombosis) Enlarged lymph node First degree AV block GERD (gastroesophageal reflux disease) Gout History of left heart catheterization (12/2019) History of prostate cancer History of radiation therapy History of transcatheter aortic valve replacement (TAVR) (08/01/18) Hydronephrosis, right Hypertension LAFB (left anterior fascicular block) Osteoarthritis Pacemaker Paroxysmal A-fib Prostate cancer RBBB Sleep apnea Stress incontinence Stress incontinence, male Surgical History AICD (automatic cardioverter/defibrillator) present (12/30/20) H/O aortic valve replacement History of back surgery Hx of heart artery stent Family History Mother Coronary artery disease involving bypass graft of transplanted heart Cancer Hypertension Social History marital status: number of children: 3 household members: none Previous occupational history: retired Smoking Status: Former smoker alcohol intake: never caffeine: Yes Assessment & Plan Assessment & Plan narrative: # sepsis secondary to community acquired pneumonia vs UTI -send for urine from both clean catch and nephrostomy tube today -WBC 33, tachy to 106, RR 27. Procal 1.3. -LLL consolation on CT suggestive of aspiration -continue meropenem given ESBL history -added linezolid on 02/06 due to rising procal and continued leukocytosis -continue IV fluid -stop diuretics # GLENN on CKD stage 3 -baseline creatinine is not clear, but appears to be around 2 -creatinine on admit 2.24, rising to over 4 on 02/07 -careful with nephrotoxic agents -suspect secondary to hypovolemia or JC -stop diuretics -continue IVF -trend creatinine daily -did ask patient about goals of care and possible dialysis, he wants to discuss with his daughter -at this point no emergent need for dialysis with no respiratory distress, normal potassium, no uremia -check urine sodium and creatinine, and renal ultrasound # chronic hypoxic resp failure -uses 1-2L NC intermittently # prostate cancer s/p right nephrostomy tube due to right retroperitoneal mass -followed by Dr. Barker urology -continue casodex # History of PE, afib -continue warfarin per pharmacy # Type 2 DM on insulin -home dose insulin is 55U daily -for now order for 45U daily -insulin sliding scale ordered -hold metformin # CAD s/p stents -continue plavix, spironolactone, lisinopril, metoprolol # Depression, possible restless leg syndrome -continue home mirapex, tolterodine, zoloft, ropinirole, pramipexole Quality VTE Deep Vein Thrombosis/Pulmonary Embolism Present on Admission: No
[2023-02-07] MEDS: OXYBUTYNIN 5 MG ER TAB 10 MG PO (14:53)
--- NOTE | 2023-02-07 16:15 | CM.DPC ---
DCP Continued: CASHIER CHECKER reviewed EMR. Per provider in rounds, patient has worsening renal functioning. Provider PN states he did have a goals of care discussion with patient, patient wishes to discuss it with his daughter. CASHIER CHECKER attempted to speak with patient. Patient was either busy with other medical staff or sleeping soundly. Plan: likely to return to [place] upon d/c. CM team will continue to follow closely to see if patient has considered Hospice. CM team will continue to follow closely. JAYLEN Damon
[2023-02-07] MEDS: WARFARIN 5 MG TABLET 2.5 MG PO (17:11)
[2023-02-07 18:00] VITALS: BP 106/44; PULSE 70; TEMP 36.4; O2SAT 95
[2023-02-07 18:05] VITALS: RESP 18
--- NOTE | 2023-02-07 20:17 | PC.NURSE ---
Pt found seated on floor after unwitnessed fall during attempt to move from chair to bed. Chair alarm was on, activated, non-slip socks on, WAREHOUSE SHIPPING RECEIVING CLERK in room immediately afterwards. No injuries noted, patient had no c/o pain, denied hitting head. Pt acknowledged previous fall teachings, reinforced teaching again, pt agreed again to use call button. Dr. Looney notified, no new orders. 3-person assist to bring patient back to feet and into bed. Pt resting comfortably in bed with bed alarm on, high risk fall precautions continued.
[2023-02-07 20:20] VITALS: BP 106/46; PULSE 72; RESP 18; TEMP 36.1; O2SAT 96
[2023-02-07] MEDS: ATORVASTATIN 20 MG TABLET 40 MG PO (22:01)
[2023-02-07] MEDS: PRAMIPEXOLE 0.25 MG TABLET 0.5 MG PO (22:03)
[2023-02-07] MEDS: ROPINIROLE 1 MG TABLET 2 MG PO (22:03)
[2023-02-07] MEDS: SENNOSIDES 8.6 MG TABLET 17.2 MG PO (22:04)
[2023-02-07 23:06] VITALS: BP 115/42; PULSE 75; RESP 18; TEMP 36.6; O2SAT 96
[2023-02-07] MEDS: DEXTROSE 50 % IN WATER 25 GM/50 ML SYRINGE IV (23:08)
--- NOTE | 2023-02-08 | DI.US.S_ITS ---
PROCEDURE: US RENAL COMPLETE INDICATIONS: ACUTE KIDNEY INJURY TECHNIQUE: Real-time scanning was performed of the kidneys and bladder, with image documentation. COMPARISON: [facility], CT, CT CHEST ABD PEL W CON, 02/05/2023, 11:47. [facility], US, US RENAL COMPLETE, 10/18/2022, 15:38. FINDINGS: Kidneys: The right kidney measures 12.4 cm in length and demonstrates moderate hydronephrosis. The cortex is lobulated. Cortical echotexture is similar to the liver. Percutaneous nephrostomy tubing is present. No significant perinephric fluid. The visible portions of the right ureter are dilated. Distal ureters not well seen due to bowel gas. The left kidney is well 0.5 cm in length and the cortex demonstrates normal thickness and echogenicity. Mildly lobular margin. No hydronephrosis or nephrolithiasis. Bladder: The urinary bladder is partially distended with 33 cc of volume. The urinary bladder and wall are incompletely evaluated due to under distension. Ureteral jets are not seen. Miscellaneous: No free pelvic fluid. IMPRESSION: 1. Persistent right hydroureteronephrosis compared to recent CT scan despite percutaneous nephrostomy. 2. No evidence of left urinary obstruction. 3. Incompletely evaluated and minimally distended urinary bladder. Dictated by: Martine Camacho M.D. on 02/08/2023 at 9:38 Approved by: Martine Camacho M.D. on 02/08/2023 at 9:46
[2023-02-08] MEDS: SODIUM CHLORIDE 0.9% 1,000 ML 75 ML IV (00:19)
[2023-02-08] MEDS: HYDROMORPHONE 0.5 MG INJ IV ×2 (00:52→05:27)
[2023-02-08 04:59] LABS: Add Manual Diff / Slide Review NO; Basophils Absolute Auto 100 /uL (0-100); Basophils Percent Auto 0.6 % (0-2); Eosinophils Absolute Auto 300 /uL (0-450); Eosinophils Percent Auto 2.2 % (2-4); Hematocrit 24.8 % (41-53); Hemoglobin 8.1 g/dL (13.5-17.5); Lymphocytes Absolute Auto 600 /uL (1100-4500); Lymphocytes Percent Auto 4.3 % (25-40); Mean Corpuscular HGB Conc 32.7 % (30-36); Mean Corpuscular Hemoglobin 27.4 PG (26-34); Mean Corpuscular Volume 83.7 fL (80-100); Monocytes Absolute Auto 600 /uL (0-900); Monocytes Percent Auto 4.7 % (3-14); Neutrophils Absolute Auto 11900 /uL (1500-7000); Neutrophils Percent Auto 88.2 % (50-75); Platelet Count 194 X10^3/uL (150-400); Red Blood Cell Count 2.97 X10^6/uL (4.5-5.9); Red Cell Distribution Width 16.1 % (11.6-14.8); White Blood Cell Count 13.5 X10^3/uL (4.5-11.0)
[2023-02-08 05:03] LABS: INR 2.1 (0.9-1.3); Prothrombin Time 24.4 SECONDS (10.1-12.7)
[2023-02-08 05:12] LABS: BUN Creatinine Ratio 5.8 (6-22); Blood Urea Nitrogen 35 mg/dL (9-20); Calcium 7.6 mg/dL (8.4-10.2); Carbon Dioxide 16 mmol/L (22-32); Chloride 104 mmol/L (98-107); Estimated Glomerular Filt Rate 9 mL/min (>60); Glucose 64 mg/dL (80-110); HEMOLYSIS < 15 (0-50); Potassium 3.9 mmol/L (3.4-5.1); Sodium 132 mmol/L (137-145)
[2023-02-08 05:28] LABS: Procalcitonin 1.34 ng/mL (<0.5)
[2023-02-08] MEDS: ACETAMINOPHEN 325 MG TABLET 650 MG PO (05:29)
[2023-02-08] MEDS: PANTOPRAZOLE DR 40 MG TABLET PO (06:25)
[2023-02-08] MEDS: ONDANSETRON 4 MG/2 ML INJ IV (06:25)
[2023-02-08 06:29] VITALS: BP 107/41; PULSE 72; RESP 18; TEMP 36.6; O2SAT 93
[2023-02-08 08:04] VITALS: BP 112/40; PULSE 69; RESP 18; TEMP 36.2; O2SAT 93
[2023-02-08] MEDS: HEPARIN 5,000 UNIT/ML VIAL 5000 UNIT SUBCUT (08:18)
[2023-02-08] MEDS: LINEZOLID 600 MG TABLET PO ×2 (08:18→21:31)
[2023-02-08] MEDS: FERROUS SULFATE 325 MG TABLET PO (08:18)
[2023-02-08] MEDS: MEROPENEM 1 GM in SODIUM CHLORIDE 0.9% 100 ML IV (08:18)
[2023-02-08] MEDS: GABAPENTIN 600 MG TABLET PO (08:18)
[2023-02-08] MEDS: BICALUTAMIDE 50 MG TABLET PO (08:18)
[2023-02-08] MEDS: OXYBUTYNIN 5 MG ER TAB 10 MG PO (08:19)
[2023-02-08] MEDS: ROPINIROLE 1 MG TABLET 1.5 MG PO ×2 (08:22→13:08)
[2023-02-08] MEDS: OXYCODONE IR 5 MG TABLET PO ×2 (08:54→13:07)
[2023-02-08] MEDS: hydrOXYzine pamoate 25 MG CAPSULE PO (08:54)
--- NOTE | 2023-02-08 10:23 | CM.DPC ---
DCP Cont: Discussed patient during team rounds today. Patient not ready for discharge, not medically stable, decreased renal function. There is a possibility that patient could be transferred to higher level hospital. Did not yet mention discussions regarding goals of care. P: DCP to continue to follow closely. Will see if patient is to be transferred, versus goals of care, such as hospice. Joaquina Rebollar RN/Hook And Eye Machine Operator
--- NOTE | 2023-02-08 12:25 | DI.RAD.S_ITS ---
PROCEDURE: FL CATHETER PATENCY COMPARISON: None. INDICATIONS: nephrostomy tube check FINDINGS: 2 mL Isovue was injected within the right-sided percutaneous nephrostomy tube. The percutaneous nephrostomy tube was widely patent, demonstrating flow into the right renal pelvis. The drain was flushed with 5 cc of sterile saline. IMPRESSION: Patent right percutaneous nephrostomy. Dictated by: Ramone Anne M.D. on 02/08/2023 at 16:23 Approved by: Ramone Anne M.D. on 02/08/2023 at 16:24
[2023-02-08 13:57] VITALS: BP 94/37; PULSE 74; RESP 15; TEMP 36.3; O2SAT 95
[2023-02-08 13:58] VITALS: BP 99/32
--- NOTE | 2023-02-08 15:00 | P.PN_ITS ---
Subjective Subjective Date Patient Seen: 02/08/23 Time Patient Seen: 08:00 Interval history: He still has left sided abdominal pain. His urine output is marginal, at approximately 300cc over 24 hours. His creatinine continues to rise to 5.99. He is urinating minimally, and minimal output from nephrostomy. The nephrostomy appears to have possibly moved, perhaps during a fall that he had. His CT scan and renal ultrasound note stable moderate hydronephrosis, and presence of nephrostomy tube. Discussed with nephrologists at both [facility] and [facility] for possible transfer, and they agree transfer is indicated. Nephrogram has been ordered to evaluate nephrostomy tube. Lasix and fluid challenge has been ordered to see if this promotes increased urination. Exam Vital Signs (past 8 hours): - 02/08/23 08:04 02/08/23 13:57 02/08/23 13:58 Temperature 97.2 F L 97.3 F L Pulse Rate 69 74 Respiratory Rate 18 15 Blood Pressure 112/40 L 94/37 L 99/32 L Pulse Oximetry 93 95 Oxygen Flow Rate 0 0 Oxygen Delivery Method Room Air Oxygen Flow Rate 0 Narrative Exam Narrative: GEN: no acute distress HEENT: dry mucous membranes CV: irregularly irregular, no murmurs PULM: clear bilaterally ABD:abdominal tenderness on left side EXT: warm and well perfused with no edema NEURO: awake, alert, oriented, no focal deficits Objective Labs 02/08/23 04:35 02/08/23 04:35 Labs: Laboratory Results - last 24 hr 02/08/23 02/08/23 02/08/23 04:35 04:35 04:35 WBC 13.5 H RBC 2.97 L Hgb 8.1 L Hct 24.8 L MCV 83.7 MCH 27.4 MCHC 32.7 RDW 16.1 H Plt Count 194 Neut % (Auto) 88.2 H Lymph % (Auto) 4.3 L [place] % (Auto) 4.7 Eos % (Auto) 2.2 Baso % (Auto) 0.6 Neut # (Auto) 28533 H Lymph # (Auto) 600 L [place] # (Auto) 600 Eos # (Auto) 300 Baso # (Auto) 100 PT INR Sodium 132 L Potassium 3.9 Chloride 104 Carbon Dioxide 16 L BUN 35 H Creatinine 5.99 H Estimated GFR 9 L BUN/Creatinine Ratio 5.8 L Glucose 64 L Calcium 7.6 L Procalcitonin 1.34 H 02/08/23 04:35 WBC RBC Hgb Hct MCV MCH MCHC RDW Plt Count Neut % (Auto) Lymph % (Auto) [place] % (Auto) Eos % (Auto) Baso % (Auto) Neut # (Auto) Lymph # (Auto) [place] # (Auto) Eos # (Auto) Baso # (Auto) PT 24.4 H INR 2.1 H Sodium Potassium Chloride Carbon Dioxide BUN Creatinine Estimated GFR BUN/Creatinine Ratio Glucose Calcium Procalcitonin PFSH Medical History Androgen deprivation therapy Arthritis Atrial fibrillation CAD (coronary artery disease) Chronic anticoagulation Congestive heart failure Depression Diabetes DVT (deep venous thrombosis) Enlarged lymph node First degree AV block GERD (gastroesophageal reflux disease) Gout History of left heart catheterization (12/2019) History of prostate cancer History of radiation therapy History of transcatheter aortic valve replacement (TAVR) (08/01/18) Hydronephrosis, right Hypertension LAFB (left anterior fascicular block) Osteoarthritis Pacemaker Paroxysmal A-fib Prostate cancer RBBB Sleep apnea Stress incontinence Stress incontinence, male Surgical History AICD (automatic cardioverter/defibrillator) present (12/30/20) H/O aortic valve replacement History of back surgery Hx of heart artery stent Family History Mother Coronary artery disease involving bypass graft of transplanted heart Cancer Hypertension Social History marital status: number of children: 3 household members: none Previous occupational history: retired Smoking Status: Former smoker alcohol intake: never caffeine: Yes Assessment & Plan Assessment & Plan narrative: # GLENN on CKD stage 3 -baseline creatinine is not clear, but appears to be around 1.7-2.1 -creatinine on admit 2.24, rising to 5.99 on 02/08 -careful with nephrotoxic agents -suspect secondary to hypovolemia or JC from contrast from CT scan -try 100cc lasix and fluid bolus challenge per [facility] Menendez nephrology -ordered nephrostogram to evaluate functioning of nephrostomy tube -trend creatinine daily -did ask patient about goals of care and possible dialysis, he wants to discuss with his daughter but thinks he wants dialysis -at this point no emergent need for dialysis with no respiratory distress, normal potassium, no uremia # sepsis secondaryUTI, improved -send for urine from both clean catch and nephrostomy tube today -WBC 33, tachy to 106, RR 27. Procal 1.3. -LLL consolation on CT suggestive of aspiration -continue meropenem given ESBL history -added linezolid on 02/06 due to rising procal and continued leukocytosis -continue IV fluid -urine culture from nephrostomy shows enterococcus sensitive to linezolid -stop meropenem # chronic hypoxic resp failure -uses 1-2L NC intermittently, not currently requiring # prostate cancer s/p right nephrostomy tube due to right retroperitoneal mass -followed by Dr. Barker urology -continue casodex # History of PE, afib -continue warfarin per pharmacy # Type 2 DM on insulin -home dose insulin is 55U daily -for now order for 25U daily due to hypoglycemia likely secondary to renal failure -insulin sliding scale ordered -hold metformin # CAD s/p stents -continue plavix, metoprolol - hold spironolactone, lisinopril # Depression, possible restless leg syndrome -continue home mirapex, tolterodine, zoloft, ropinirole, pramipexole Quality VTE Deep Vein Thrombosis/Pulmonary Embolism Present on Admission: No
[2023-02-08] MEDS: SODIUM CHLORIDE 0.9% 500 ML 1000 ML IV (16:32)
[2023-02-08] MEDS: FUROSEMIDE 100 MG in SODIUM CHLORIDE 0.9% 50 ML 120 MG IV (17:08)
--- NOTE | 2023-02-08 19:27 | P.DS_ITS ---
History of Present Illness History of Present Illness Date Patient Seen: 02/05/23 Time Patient Seen: 16:00 Chief complaint: Fall T-1, Lower abd pain Narrative: Per admitting provider: Erick Álvarez is a 72yo M with PMH of CAD, chronic hypoxic resp failure, VTE, HTN, Afib s/p AICD on warfarin, aortic stenosis s/p TAVR, Type 2 DM on insulin, prostate cancer with right retroperitoneal mass s/p right nephrostomy tube, ESBL UTI and GERD who presents with left-sided abd pain after fall and hitting his side on his wheelchair. Found to have WBC of 33. CT chest abd pelvis showed L3 compression fracture and possible LLL consolation consistent with PNA. However he denies resp symptoms such as cough or SOB. Given 1g ertapenem in ED given history of ESBL. Patient apparently at O2 sat of mid 80's en route by EMS. He was recently discharged from [place] for UTI with ESBL E. coli back to [facility]. Discharge Providers Provider Date of admission: 02/05/23 13:27 Discharge Date: 02/08/23 Primary care physician: Vandana Hart MD Discharge provider: He Culp MD Summary Hospital Course Discharge Diagnosis: 1. GLENN on CKD 2. Enterococcus UTI causing sepsis 3. Chronic hypoxemic respiratory failure, intermittent oxygen use 4. Prostate cancer s/p right nephrostomy tube secondary to retroperitoneal mass 5. History of PE 6. History of atrial fibrillation 7. Type 2 Diabetes on insulin 8. CAD s/p stents 9. Depression 10. Restless leg syndrome Hospital Course: Mr. Álvarez presented to the hospital on 02/04 after a fall, and had a CT scan done for abdominal pain, and was discharge. He presented back to the hospital on 02/05 with persistent abdominal pain and had repeat CT scan done. Both with IV contrast. He was admitted that presentation for pain and leukocytosis of 33. He had workup done which showed positive urine infection with Enterococcus in his nephrostomy urine which was sensitive to linezolid. Initially he was on meropenem and linezolid, as he has previously had ESBL UTI, but once cultures returned meropenem was discontinued. His first dose of linezolid was 02/06. He did have soft blood pressures in the systolic 90s, his spironolactone and lasix were held during hospitalization. His creatinine on admission was 2.24, with baseline being approximately 1.7-2.1. His creatinine johnny daily to 5.99 on 02/08. His urine output was marginal with approximately 300cc per 24 hours. He had imaging done with renal ultrasound which was read as stable right sided hydronephrosis. He had nephrostogram done on 02/08 which showed patent nephrostomy tube. There was thought his nephrostomy tube may have been dislodged with his falling. He did get fluids during his hospital stay as there was some thought he may be hypovolemic secondary to infection, and he appeared very hypov olemic on admission. Despite multiple fluid boluses followed by maintenance fluid, his urine output did not improve. He did get IV fluid bolus (500cc) and lasix (100mg IV) concurrent challenge to determine if this would elicit brisk urine output but he responded with only 150cc urine output over the course of a few hours. I did discuss with him and family and they were in agreement with goals of care including possible dialysis if it were indicated. He was transferred to higher level of care with nephrology capacity. Exam Vital Signs (past 8 hours): - 02/08/23 13:57 02/08/23 13:58 Temperature 97.3 F L Pulse Rate 74 Respiratory Rate 15 Blood Pressure 94/37 L 99/32 L Pulse Oximetry 95 Oxygen Flow Rate 0 Oxygen Delivery Method Room Air Oxygen Flow Rate 0 Narrative Exam Narrative: GEN: no acute distress HEENT: dry mucous membranes CV: irregularly irregular, no murmurs PULM: clear bilaterally ABD:abdominal tenderness on left side EXT: warm and well perfused with no edema NEURO: awake, alert, oriented, no focal deficits Objective Labs 02/08/23 04:35 02/08/23 04:35 Labs: Laboratory Results - last 24 hr 02/08/23 02/08/23 02/08/23 04:35 04:35 04:35 WBC 13.5 H RBC 2.97 L Hgb 8.1 L Hct 24.8 L MCV 83.7 MCH 27.4 MCHC 32.7 RDW 16.1 H Plt Count 194 Neut % (Auto) 88.2 H Lymph % (Auto) 4.3 L [place] % (Auto) 4.7 Eos % (Auto) 2.2 Baso % (Auto) 0.6 Neut # (Auto) 99799 H Lymph # (Auto) 600 L [place] # (Auto) 600 Eos # (Auto) 300 Baso # (Auto) 100 PT INR Sodium 132 L Potassium 3.9 Chloride 104 Carbon Dioxide 16 L BUN 35 H Creatinine 5.99 H Estimated GFR 9 L BUN/Creatinine Ratio 5.8 L Glucose 64 L Calcium 7.6 L Procalcitonin 1.34 H 02/08/23 04:35 WBC RBC Hgb Hct MCV MCH MCHC RDW Plt Count Neut % (Auto) Lymph % (Auto) [place] % (Auto) Eos % (Auto) Baso % (Auto) Neut # (Auto) Lymph # (Auto) [place] # (Auto) Eos # (Auto) Baso # (Auto) PT 24.4 H INR 2.1 H Sodium Potassium Chloride Carbon Dioxide BUN Creatinine Estimated GFR BUN/Creatinine Ratio Glucose Calcium Procalcitonin PFSH Medical History Androgen deprivation therapy Arthritis Atrial fibrillation CAD (coronary artery disease) Chronic anticoagulation Congestive heart failure Depression Diabetes DVT (deep venous thrombosis) Enlarged lymph node First degree AV block GERD (gastroesophageal reflux disease) Gout History of left heart catheterization (12/2019) History of prostate cancer History of radiation therapy History of transcatheter aortic valve replacement (TAVR) (08/01/18) Hydronephrosis, right Hypertension LAFB (left anterior fascicular block) Osteoarthritis Pacemaker Paroxysmal A-fib Prostate cancer RBBB Sleep apnea Stress incontinence Stress incontinence, male Surgical History AICD (automatic cardioverter/defibrillator) present (12/30/20) H/O aortic valve replacement History of back surgery Hx of heart artery stent Family History Mother Coronary artery disease involving bypass graft of transplanted heart Cancer Hypertension Social History marital status: number of children: 3 household members: none Previous occupational history: retired Smoking Status: Former smoker alcohol intake: never caffeine: Yes Discharge Plan Discharge Plan Patient Disposition: [facility] Other facility: [facility] Under care of provider: Micaela Ramírez Provider Discharge Comment: transfer for higher level of care Diet/Activity/Treatments Diet: Regular Discharge Data Primary Care Provider: Vandana Hart VTE Deep Vein Thrombosis/Pulmonary Embolism Present on Admission: No
[2023-02-08 21:00] VITALS: BP 116/40; PULSE 75; RESP 18; TEMP 36.2; O2SAT 96
[2023-02-08] MEDS: PRAMIPEXOLE 0.25 MG TABLET 0.5 MG PO (21:31)
[2023-02-08] MEDS: SENNOSIDES 8.6 MG TABLET 17.2 MG PO (21:31)
[2023-02-08] MEDS: ROPINIROLE 1 MG TABLET 2 MG PO (21:31)
[2023-02-08] MEDS: ATORVASTATIN 20 MG TABLET 40 MG PO (21:32)
--- NOTE | 2023-02-08 22:59 | PC.NURSE ---
Pt being transfer to [facility] in [place]. Report given to Nurse Sifuentes. This nurse tried to call pt's daughter and just left a message for daughter to call back.
== END 2023-02-08 23:00 | disposition short-term general hospital (02) | DRG 872 ==
LOC: ED 11:08 → AC 13:27
PROVIDERS: Internal Medicine; Admitting Provider Student in an Organized Health Care Education/Training Program; Emergency Provider Emergency Medicine; PCP Internal Medicine; Referring Provider Emergency Medicine; Visit Provider Student in an Organized Health Care Education/Training Program
DX: A41.81 Sepsis due to Enterococcus (principal); S32.039A Unspecified fracture of third lumbar vertebra, initial encounter for closed fracture; J96.11 Chronic respiratory failure with hypoxia; N17.9 Acute kidney failure, unspecified; N39.0 Urinary tract infection, site not specified; I48.91 Unspecified atrial fibrillation; I25.10 Atherosclerotic heart disease of native coronary artery without angina pectoris; F32.A Depression, unspecified; E11.22 Type 2 diabetes mellitus with diabetic chronic kidney disease; I12.9 Hypertensive chronic kidney disease with stage 1 through stage 4 chronic kidney disease, or unspecified chronic kidney disease; N18.30 Chronic kidney disease, stage 3 unspecified; C61 Malignant neoplasm of prostate; G25.81 Restless legs syndrome; Z79.4 Long term (current) use of insulin; Z66 Do not resuscitate; Z87.891 Personal history of nicotine dependence; Z95.2 Presence of prosthetic heart valve; Z95.810 Presence of automatic (implantable) cardiac defibrillator; Z79.01 Long term (current) use of anticoagulants; Z93.6 Other artificial openings of urinary tract status; Z95.5 Presence of coronary angioplasty implant and graft; Z86.711 Personal history of pulmonary embolism; Z79.84 Long term (current) use of oral hypoglycemic drugs; R07.89 Other chest pain; R07.81 Pleurodynia; R55 Syncope and collapse; R10.9 Unspecified abdominal pain; R29.6 Repeated falls; G20 Parkinson's disease; D64.9 Anemia, unspecified; R79.89 Other specified abnormal findings of blood chemistry
CPT/HCPCS: 36415; 70450; 71045; 71260; 72125; 73502; 74177; 76000; 76770; 80048; 80053; 80305; 80320; 81001; 81003; 81015; 82550; 82570; 82962; 83605; 83690; 83880; 84145; 84300; 84484; 85007; 85025; 85610; 85730; 86850; 86900; 86901; 87040; 87077; 87086; 87186; 93005; 96365; 96375; 99284; J1170; J1335; J1644; J1815; J1940; J2185; J2405; Q9967

== ENCOUNTER → 2023-03-09 21:40 | Outpatient (ROUT) | payer MEDICARE, MEDICAID, SELFPAY ==
[2023-02-05 13:56] VITALS: BMI 33.0
[2023-03-09 23:41] LABS: Clostridium Difficile Tox PCR Positive for C. diff (Negative)
[2023-03-12 17:26] LABS: C difficie Toxins A and B, EIA Positive (Negative)
== END ==
PROVIDERS: PCP Internal Medicine; Visit Provider Nurse Practitioner Family
DX: A04.72 Enterocolitis due to Clostridium difficile, not specified as recurrent (principal)
CPT/HCPCS: 87324; 87493

== ENCOUNTER → 2023-04-02 14:41 | Outpatient (CLI) | payer MEDICARE, MEDICAID, SELFPAY ==
[2023-02-05 13:56] VITALS: BMI 33.0
--- NOTE | 2023-04-02 | DI.RAD.S_ITS ---
PROCEDURE: XR FOOT LT MIN 3V INDICATIONS: LT FOOT PAIN TECHNIQUE: 3 views of the foot were acquired. COMPARISON: None. FINDINGS: Bones: No acute fractures or dislocations. No suspicious bony lesions. Joint space narrowing and periarticular osteophyte formation at the 1st metatarsophalangeal joint as well as the interphalangeal joint of the 1st digit. Deformity of the distal aspect of the proximal phalanx of the 1st digit. Subchondral cyst formation adjacent to the interphalangeal joint of the 1st digit. Soft tissues: No tibiotalar joint effusion. Achilles tendon appears normal. IMPRESSION: 1. Possible chronic fracture deformity of the 1st digit with secondary osteoarthritis. 2. No acute fracture. No osseous lesion. If symptoms and/or clinical suspicion for pathology persist, further assessment with repeat, or advanced imaging (e.g., CT, MRI, or bone scan) may be helpful for further assessment. Dictated by: Blayne Cardoso M.D. on 04/02/2023 at 16:01 Approved by: Blayne Cardoso M.D. on 04/02/2023 at 16:02
== END ==
PROVIDERS: PCP Internal Medicine; Referring Provider Internal Medicine; Visit Provider Internal Medicine
DX: M86.172 Other acute osteomyelitis, left ankle and foot (principal); M19.072 Primary osteoarthritis, left ankle and foot
CPT/HCPCS: 73630

== ENCOUNTER → 2023-04-22 16:16 | Outpatient (ROUT) | payer MEDICARE, MEDICAID, SELFPAY ==
[2023-02-05 13:56] VITALS: BMI 33.0
[2023-04-22 16:29] LABS: Appearance Urine UA CLOUDY; Bilirubin Urine UA NEGATIVE (NEGATIVE); Color Urine UA YELLOW; Glucose Urine UA NEGATIVE (Negative); Ketones Urine UA NEGATIVE (NEGATIVE); Leukocyte Esterase Urine UA 2+ (NEGATIVE); Nitrite Urine UA POSITIVE (Negative); Occult Blood Urine UA 3+ (Negative); Protein Urine UA 3+ (Negative); Specific Gravity Urine UA 1.015 (1.000-1.035); Urobilinogen Urine UA 0.2 E.U./dL (0.2); pH Urine UA 7.5 (4.5-8.0)
[2023-04-22 16:38] LABS: Bacteria Urine Moderate (10-30); Culture Indicated Urine Specimen Cultured; RBC Urine 30-100/HPF (0-5/HPF); Squamous Epithelial Cell Urine 1-5 /HPF (0-5/HPF); WBC Urine >100/HPF (0-5/HPF)
== END ==
PROVIDERS: PCP Internal Medicine; Visit Provider Internal Medicine
DX: Z13.89 Encounter for screening for other disorder (principal)
CPT/HCPCS: 81001; 87077; 87086; 87186

== ENCOUNTER → 2023-05-04 07:48 | Outpatient (ROUT) | payer MEDICARE, MEDICAID, SELFPAY ==
[2023-02-05 13:56] VITALS: BMI 33.0
[2023-05-04 09:06] LABS: INR 1.9 (0.9-1.3); Prothrombin Time 22.3 SECONDS (10.1-12.7)
== END ==
PROVIDERS: PCP Internal Medicine; Visit Provider Internal Medicine
DX: Z79.01 Long term (current) use of anticoagulants (principal)
CPT/HCPCS: 36415; 85610

== ENCOUNTER → 2023-05-18 08:34 | Outpatient (ROUT) | payer MEDICARE, MEDICAID, SELFPAY ==
[2023-02-05 13:56] VITALS: BMI 33.0
[2023-05-18 09:52] LABS: INR 3.4 (0.9-1.3); Prothrombin Time 39.1 SECONDS (9.4-12.5)
== END ==
PROVIDERS: PCP Internal Medicine; Visit Provider Internal Medicine
DX: I82.409 Acute embolism and thrombosis of unspecified deep veins of unspecified lower extremity (principal); Z79.01 Long term (current) use of anticoagulants
CPT/HCPCS: 36415; 85610

== ENCOUNTER → 2023-05-20 10:09 | Outpatient (CLI) | payer MEDICARE, MEDICAID, SELFPAY ==
[2023-02-05 13:56] VITALS: BMI 33.0
== END ==
PROVIDERS: PCP Internal Medicine; Referring Provider Internal Medicine; Visit Provider Surgery
DX: E11.621 Type 2 diabetes mellitus with foot ulcer (principal); L97.522 Non-pressure chronic ulcer of other part of left foot with fat layer exposed; M10.072 Idiopathic gout, left ankle and foot; R60.0 Localized edema; L53.9 Erythematous condition, unspecified
CPT/HCPCS: 11042; 87070; 87075; 87077; 87147; 87186; 87205; 99204; 99214

== ENCOUNTER → 2023-05-25 07:10 | Outpatient (ROUT) | payer MEDICARE, MEDICAID, SELFPAY ==
[2023-02-05 13:56] VITALS: BMI 33.0
[2023-05-25 07:41] LABS: INR 2.7 (0.9-1.3); Prothrombin Time 31.7 SECONDS (9.4-12.5)
== END ==
PROVIDERS: PCP Internal Medicine; Visit Provider Internal Medicine
DX: Z51.81 Encounter for therapeutic drug level monitoring (principal)
CPT/HCPCS: 36415; 85610

== ENCOUNTER → 2023-05-28 08:30 | Outpatient (CLI) | payer MEDICARE, MEDICAID, SELFPAY ==
[2023-02-05 13:56] VITALS: BMI 33.0
== END ==
PROVIDERS: PCP Internal Medicine; Referring Provider Internal Medicine; Visit Provider Physician Assistant
DX: E11.621 Type 2 diabetes mellitus with foot ulcer (principal); L97.522 Non-pressure chronic ulcer of other part of left foot with fat layer exposed; M10.072 Idiopathic gout, left ankle and foot
CPT/HCPCS: 11042; 99214

== ENCOUNTER → 2023-06-08 15:21 | Outpatient (ROUT) | payer MEDICARE, MEDICAID, SELFPAY ==
[2023-02-05 13:56] VITALS: BMI 33.0
[2023-06-08 15:40] LABS: INR 1.9 (0.9-1.3); Prothrombin Time 22.5 SECONDS (9.4-12.5)
== END ==
PROVIDERS: PCP Internal Medicine; Visit Provider Internal Medicine
DX: I48.91 Unspecified atrial fibrillation (principal)
CPT/HCPCS: 85610

== ENCOUNTER → 2023-06-11 02:41 | Outpatient (ROUT) | payer MEDICARE, MEDICAID, SELFPAY ==
[2023-02-05 13:56] VITALS: BMI 33.0
[2023-06-11 03:39] LABS: Bacteria Urine None Seen; Color Urine UA RED; RBC Urine >100/HPF (0-5/HPF); Squamous Epithelial Cell Urine 1-5 /HPF (0-5/HPF); WBC Urine 1-5/HPF (0-5/HPF)
[2023-06-11 03:40] LABS: Culture Indicated Urine Cult Not Indicated
== END ==
PROVIDERS: PCP Internal Medicine; Visit Provider Internal Medicine
DX: R31.9 Hematuria, unspecified (principal)
CPT/HCPCS: 81001

== ENCOUNTER → 2023-06-11 10:01 | Outpatient (CLI) | payer MEDICARE, MEDICAID, SELFPAY ==
[2023-02-05 13:56] VITALS: BMI 33.0
== END ==
PROVIDERS: PCP Internal Medicine; Referring Provider Internal Medicine; Visit Provider Surgery
DX: M10.9 Gout, unspecified (principal); R31.9 Hematuria, unspecified; E11.621 Type 2 diabetes mellitus with foot ulcer; L97.522 Non-pressure chronic ulcer of other part of left foot with fat layer exposed; R60.0 Localized edema; L53.9 Erythematous condition, unspecified; N18.9 Chronic kidney disease, unspecified; C61 Malignant neoplasm of prostate; Z79.01 Long term (current) use of anticoagulants
CPT/HCPCS: 11042; 81001; 99212; 99214

== ENCOUNTER → 2023-06-18 10:23 | Outpatient (CLI) | payer MEDICARE, MEDICAID, SELFPAY ==
[2023-02-05 13:56] VITALS: BMI 33.0
[2023-06-18 11:40] LABS: Uric Acid 7.4 mg/dL (3.5-8.5)
== END ==
PROVIDERS: PCP Internal Medicine; Referring Provider Internal Medicine; Visit Provider Internal Medicine
DX: M10.9 Gout, unspecified (principal); E11.621 Type 2 diabetes mellitus with foot ulcer; L97.509 Non-pressure chronic ulcer of other part of unspecified foot with unspecified severity
CPT/HCPCS: 36415; 84550

== ENCOUNTER → 2023-06-18 11:46 | Outpatient (CLI) | payer MEDICARE, MEDICAID, SELFPAY ==
[2023-02-05 13:56] VITALS: BMI 33.0
== END ==
PROVIDERS: PCP Internal Medicine; Referring Provider Internal Medicine; Visit Provider Physician Assistant
DX: E11.621 Type 2 diabetes mellitus with foot ulcer (principal); L97.529 Non-pressure chronic ulcer of other part of left foot with unspecified severity; M10.9 Gout, unspecified; L97.522 Non-pressure chronic ulcer of other part of left foot with fat layer exposed; M10.072 Idiopathic gout, left ankle and foot; R60.0 Localized edema; L53.9 Erythematous condition, unspecified; I48.91 Unspecified atrial fibrillation; I25.10 Atherosclerotic heart disease of native coronary artery without angina pectoris; N18.9 Chronic kidney disease, unspecified
CPT/HCPCS: 11042; 36415; 73630; 84550; 85025; 85651; 86140; 99215

== ENCOUNTER → 2023-06-18 12:02 | Outpatient (CLI) | payer MEDICARE, MEDICAID, SELFPAY ==
[2023-02-05 13:56] VITALS: BMI 33.0
--- NOTE | 2023-06-18 12:04 | DI.RAD.S_ITS ---
PROCEDURE: XR FOOT LT MIN 3V INDICATIONS: Rule out osteomyelitis of left foot TECHNIQUE: 3 views of the foot were acquired. COMPARISON: [facility], CR, XR FOOT LT MIN 3V, 04/02/2023, 15:15. FINDINGS: Bones: Erosions or subchondral cysts at the 1st digit interphalangeal joint, unchanged. Similar joint space narrowing. Possible corner fractur at the lateral 1st digit distal phalanx. No dislocation. No suspicious bony lesions. Soft tissues: Increased density adjacent to the 1st digit interphalangeal joint and 1st digit MTP joint. No tibiotalar joint effusion. Achilles tendon appears normal. IMPRESSION: No interval change appreciated. Erosions or subchondral cysts at the 1st digit interphalangeal joint. Findings could be seen in the setting of osteomyelitis or advanced degenerative changes. Sequelae of gout is also a diagnostic consideration. Questionable prior corner fracture at the 1st digit distal phalanx lateral aspect. Dictated by: Stephen Christianson M.D. on 06/18/2023 at 14:55 Approved by: Stephen Christianson M.D. on 06/18/2023 at 15:03
[2023-06-18 12:57] LABS: Add Manual Diff / Slide Review NO; Basophils Absolute Auto 100 /uL (0-100); Basophils Percent Auto 0.7 % (0-2); Eosinophils Absolute Auto 200 /uL (0-450); Eosinophils Percent Auto 2.5 % (2-4); Hematocrit 31.2 % (41-53); Hemoglobin 10.7 g/dL (13.5-17.5); Lymphocytes Absolute Auto 900 /uL (1100-4500); Lymphocytes Percent Auto 11.5 % (25-40); Mean Corpuscular HGB Conc 34.1 % (30-36); Mean Corpuscular Hemoglobin 27.9 PG (26-34); Mean Corpuscular Volume 81.6 fL (80-100); Monocytes Absolute Auto 500 /uL (0-900); Neutrophils Absolute Auto 6400 /uL (1500-7000); Neutrophils Percent Auto 79.3 % (50-75); Platelet Count 195 X10^3/uL (150-400); Red Blood Cell Count 3.82 X10^6/uL (4.5-5.9); Red Cell Distribution Width 17.1 % (11.6-14.8)
[2023-06-18 13:16] LABS: C-Reactive Protein Quant 2.4 mg/dL (<1.0)
[2023-06-18 13:17] LABS: Erythrocyte Sedimentation Rate 68 MM/HR (0-15)
== END ==
PROVIDERS: PCP Internal Medicine; Referring Provider Physician Assistant; Visit Provider Physician Assistant
DX: E11.621 Type 2 diabetes mellitus with foot ulcer (principal); L97.529 Non-pressure chronic ulcer of other part of left foot with unspecified severity; M10.9 Gout, unspecified
CPT/HCPCS: 36415; 73630; 84550; 85025; 85651; 86140

== ENCOUNTER → 2023-06-22 12:26 | Outpatient (ROUT) | payer MEDICARE, MEDICAID, SELFPAY ==
[2023-02-05 13:56] VITALS: BMI 33.0
[2023-06-22 12:39] LABS: INR 1.9 (0.9-1.3); Prothrombin Time 22.1 SECONDS (9.4-12.5)
== END ==
PROVIDERS: PCP Internal Medicine; Visit Provider Internal Medicine
DX: I48.91 Unspecified atrial fibrillation (principal); Z79.01 Long term (current) use of anticoagulants
CPT/HCPCS: 85610

== ENCOUNTER → 2023-06-25 13:04 | Outpatient (CLI) | payer MEDICARE, MEDICAID, SELFPAY ==
[2023-02-05 13:56] VITALS: BMI 33.0
== END ==
LOC: WC 13:04
PROVIDERS: PCP Internal Medicine; Referring Provider Internal Medicine; Visit Provider Physician Assistant
DX: E11.621 Type 2 diabetes mellitus with foot ulcer (principal); L97.522 Non-pressure chronic ulcer of other part of left foot with fat layer exposed; L53.9 Erythematous condition, unspecified; R60.0 Localized edema; M10.072 Idiopathic gout, left ankle and foot; I25.10 Atherosclerotic heart disease of native coronary artery without angina pectoris; N18.9 Chronic kidney disease, unspecified; Z95.810 Presence of automatic (implantable) cardiac defibrillator
CPT/HCPCS: 11042; 99214

== ENCOUNTER → 2023-06-28 21:03 | Outpatient (ROUT) | payer MEDICARE, MEDICAID, SELFPAY ==
[2023-02-05 13:56] VITALS: BMI 33.0
[2023-06-28 21:30] LABS: Color Urine UA RED; Ketones Urine UA NEGATIVE (NEGATIVE); Leukocyte Esterase Urine UA 2+ (NEGATIVE); Occult Blood Urine UA 3+ (Negative); Protein Urine UA 3+ (Negative); Specific Gravity Urine UA 1.015 (1.000-1.035); pH Urine UA 8.5 (4.5-8.0)
[2023-06-28 21:40] LABS: Appearance Urine UA Slightly Cloudy
[2023-06-28 21:46] LABS: Bacteria Urine Few (2-10); Culture Indicated Urine Specimen Cultured; RBC Urine >100/HPF (0-5/HPF); Squamous Epithelial Cell Urine 0-1 /HPF (0-5/HPF); WBC Urine 1-5/HPF (0-5/HPF)
== END ==
PROVIDERS: PCP Internal Medicine; Visit Provider Internal Medicine
DX: R31.9 Hematuria, unspecified (principal)
CPT/HCPCS: 81001; 87077; 87086; 87186

== ENCOUNTER → 2023-07-02 10:09 | Outpatient (CLI) | payer MEDICARE, MEDICAID, SELFPAY ==
[2023-02-05 13:56] VITALS: BMI 33.0
== END ==
PROVIDERS: PCP Internal Medicine; Referring Provider Internal Medicine; Visit Provider Physician Assistant
DX: L97.522 Non-pressure chronic ulcer of other part of left foot with fat layer exposed (principal); E11.621 Type 2 diabetes mellitus with foot ulcer; M10.072 Idiopathic gout, left ankle and foot; R60.0 Localized edema; L53.9 Erythematous condition, unspecified; I25.10 Atherosclerotic heart disease of native coronary artery without angina pectoris; N18.9 Chronic kidney disease, unspecified; M10.9 Gout, unspecified; L97.509 Non-pressure chronic ulcer of other part of unspecified foot with unspecified severity
CPT/HCPCS: 11042; 36415; 80053; 84550; 85025; 99213; 99214

== ENCOUNTER → 2023-07-02 10:20 | Outpatient (CLI) | payer MEDICARE, MEDICAID, SELFPAY ==
[2023-02-05 13:56] VITALS: BMI 33.0
[2023-07-02 10:38] LABS: Add Manual Diff / Slide Review NO; Basophils Absolute Auto 100 /uL (0-100); Basophils Percent Auto 0.7 % (0-2); Eosinophils Absolute Auto 300 /uL (0-450); Eosinophils Percent Auto 3.1 % (2-4); Hematocrit 33.9 % (41-53); Hemoglobin 11.4 g/dL (13.5-17.5); Lymphocytes Absolute Auto 800 /uL (1100-4500); Lymphocytes Percent Auto 8.8 % (25-40); Mean Corpuscular HGB Conc 33.5 % (30-36); Mean Corpuscular Volume 83.7 fL (80-100); Monocytes Absolute Auto 600 /uL (0-900); Monocytes Percent Auto 6.6 % (3-14); Neutrophils Absolute Auto 7700 /uL (1500-7000); Neutrophils Percent Auto 80.8 % (50-75); Platelet Count 216 X10^3/uL (150-400); Red Blood Cell Count 4.05 X10^6/uL (4.5-5.9); Red Cell Distribution Width 17.9 % (11.6-14.8); White Blood Cell Count 9.6 X10^3/uL (4.5-11.0)
[2023-07-02 10:48] LABS: Uric Acid 7.4 mg/dL (3.5-8.5)
[2023-07-02 10:57] LABS: Alanine Aminotransferase 12 IU/L (<50); Albumin 3.8 g/dL (3.5-5.0); Albumin Globulin Ratio 1.3 (1.0-2.8); Alkaline Phosphatase 83 U/L (38-126); Aspartate Aminotransferase 17 IU/L (17-59); Bilirubin Total 0.4 mg/dL (0.2-1.3); Blood Urea Nitrogen 37 mg/dL (9-20); Calcium 9.3 mg/dL (8.4-10.2); Carbon Dioxide 27 mmol/L (22-32); Chloride 105 mmol/L (98-107); Estimated Glomerular Filt Rate 29 mL/min (>60); Globulin 2.9 g/dL (1.7-4.1); Glucose 182 mg/dL (80-110); HEMOLYSIS < 15 (0-50); Potassium 4.3 mmol/L (3.4-5.1); Sodium 139 mmol/L (137-145); Total Protein 6.7 g/dL (6.3-8.2)
== END ==
PROVIDERS: Surgery; PCP Internal Medicine; Referring Provider Physician Assistant; Visit Provider Physician Assistant
DX: M10.9 Gout, unspecified (principal); E11.621 Type 2 diabetes mellitus with foot ulcer; L97.509 Non-pressure chronic ulcer of other part of unspecified foot with unspecified severity
CPT/HCPCS: 36415; 80053; 84550; 85025

== ENCOUNTER → 2023-07-16 09:36 | Outpatient (CLI) | payer MEDICARE, MEDICAID, SELFPAY ==
[2023-02-05 13:56] VITALS: BMI 33.0
== END ==
LOC: WC 09:37
PROVIDERS: PCP Internal Medicine; Referring Provider Internal Medicine; Visit Provider Physician Assistant
DX: E11.621 Type 2 diabetes mellitus with foot ulcer (principal); L97.522 Non-pressure chronic ulcer of other part of left foot with fat layer exposed; M10.072 Idiopathic gout, left ankle and foot; R60.0 Localized edema; L53.9 Erythematous condition, unspecified; I25.10 Atherosclerotic heart disease of native coronary artery without angina pectoris; N18.9 Chronic kidney disease, unspecified; I48.91 Unspecified atrial fibrillation; Z95.0 Presence of cardiac pacemaker
CPT/HCPCS: 11042; 99214

== ENCOUNTER → 2023-07-20 07:19 | Outpatient (ROUT) | payer MEDICARE, MEDICAID, SELFPAY ==
[2023-02-05 13:56] VITALS: BMI 33.0
[2023-07-20 07:31] LABS: INR 1.4 (0.9-1.3); Prothrombin Time 16.3 SECONDS (9.4-12.5)
== END ==
PROVIDERS: PCP Internal Medicine; Visit Provider Internal Medicine
DX: I48.91 Unspecified atrial fibrillation (principal); Z79.01 Long term (current) use of anticoagulants
CPT/HCPCS: 36415; 85610

== ENCOUNTER → 2023-07-27 07:08 | Outpatient (ROUT) | payer MEDICARE, MEDICAID, SELFPAY ==
[2023-02-05 13:56] VITALS: BMI 33.0
[2023-07-27 08:07] LABS: INR 1.9 (0.9-1.3); Prothrombin Time 21.6 SECONDS (9.4-12.5)
== END ==
PROVIDERS: PCP Internal Medicine; Visit Provider Internal Medicine
DX: I48.91 Unspecified atrial fibrillation (principal)
CPT/HCPCS: 36415; 85610

== ENCOUNTER → 2023-07-30 10:06 | Outpatient (CLI) | payer MEDICARE, MEDICAID, SELFPAY ==
[2023-02-05 13:56] VITALS: BMI 33.0
== END ==
PROVIDERS: PCP Internal Medicine; Referring Provider Internal Medicine; Visit Provider Physician Assistant
DX: E11.621 Type 2 diabetes mellitus with foot ulcer (principal); L97.522 Non-pressure chronic ulcer of other part of left foot with fat layer exposed; R60.0 Localized edema; L53.9 Erythematous condition, unspecified; M10.072 Idiopathic gout, left ankle and foot; I25.10 Atherosclerotic heart disease of native coronary artery without angina pectoris; N18.9 Chronic kidney disease, unspecified
CPT/HCPCS: 11042; 99213

== ENCOUNTER → 2023-08-10 08:01 | Outpatient (ROUT) | payer MEDICARE, MEDICAID, SELFPAY ==
[2023-02-05 13:56] VITALS: BMI 33.0
[2023-08-10 08:44] LABS: INR 1.7 (0.9-1.3); Prothrombin Time 19.6 SECONDS (9.4-12.5)
== END ==
PROVIDERS: PCP Internal Medicine; Visit Provider Internal Medicine
DX: I48.91 Unspecified atrial fibrillation (principal)
CPT/HCPCS: 36415; 85610

== ENCOUNTER 2023-08-12 05:31 | Inpatient (IN) | payer MEDICARE, MEDICAID, SELFPAY ==
[2023-02-05 13:56] VITALS: BMI 33.0
[2023-08-12] VITALS (52 sets, daily range): BP systolic 95–166; BP diastolic 49–75; PULSE 51–96; RESP 13–30; TEMP 37.5–37.9; O2SAT 90–95; BMI 34.9
--- NOTE | 2023-08-12 05:37 | ED_ITS ---
HPI - Abdominal Pain <Keshia Johnson MD - Last Filed: 08/13/23 00:11> General Chief Complaint: Abdominal Pain Time Seen by Provider: 08/12/23 05:32 History of Present Illness HPI narrative: 73-year-old male with history of cCAD, chronic hypoxic resp failure, VTE, HTN, Afib s/p AICD on warfarin, aortic stenosis s/p TAVR, Type 2 DM on insulin, prostate cancer with right retroperitoneal mass s/p right nephrostomy tube, ESBL UTI and GERD presents by EMS from [facility] living for abdominal pain with nausea and vomiting. Patient states that he went to bed feeling generally poorly, at around 2:00 a.m. began to experience vomiting. Symptoms persisted and 911 was called. He was given 4 mg Zofran at 4:00 a.m.. On arrival to the emergency department patient still states he feels generally poorly, but nausea is improved. Reports midepigastric abdominal pain. Nephrostomy tube last replaced 2.5 months ago, due for a replacement in several weeks. Related Data Home Medications Medication Instructions Recorded Confirmed acetaminophen 325 mg tablet 650 mg PO Q4H PRN pain 06/13/22 08/12/23 atorvastatin 40 mg tablet 40 mg PO BEDTIME 06/13/22 08/12/23 calcium carbonate 215 mg calcium 500 mg DAILY 06/13/22 08/12/23 (500 mg) chewable tablet (Antacid (calcium carbonate)) ferrous sulfate 325 mg (65 mg 325 mg PO DAILY 06/13/22 08/12/23 iron) tablet furosemide 40 mg tablet 40 mg PO DAILY 06/13/22 08/12/23 gabapentin 300 mg tablet 600 mg PO BID 06/13/22 08/12/23 insulin glargine 100 unit/mL 10 unit SUBCUT QPM 06/13/22 08/12/23 subcutaneous cartridge insulin lispro 100 unit/mL 1 sliding scale dose SUBCUT 06/13/22 08/12/23 subcutaneous cartridge USEASDIRECTD lisinopril 2.5 mg tablet 2.5 mg PO DAILY 06/13/22 08/12/23 metoprolol succinate 25 mg 12.5 mg PO DAILY 06/13/22 08/12/23 tablet,extended release 24 hr pantoprazole 40 mg tablet,delayed 40 mg PO DAILY 06/13/22 08/12/23 release (Protonix) pramipexole 0.5 mg tablet (Mirapex) 0.5 mg PO DAILY 06/13/22 08/12/23 ropinirole 1 mg tablet 2 mg PO BID 06/13/22 08/12/23 sertraline 50 mg tablet (Zoloft) 50 mg PO DAILY 06/13/22 08/12/23 tolterodine 4 mg capsule,extended 4 mg PO DAILY 06/13/22 08/12/23 release 24 hr (Detrol LA) hydroxyzine pamoate 25 mg capsule 25 mg PO PRN PRN Sleep 08/03/22 08/12/23 (Vistaril) bicalutamide 50 mg tablet 50 mg PO DAILY 12/14/22 08/12/23 ondansetron 4 mg disintegrating 8 mg PO Q6H PRN Nausea 12/14/22 08/12/23 tablet ropinirole 2 mg tablet 2 mg PO BEDTIME 12/14/22 02/05/23 spironolactone 25 mg tablet 25 mg PO BID 12/14/22 08/12/23 sennosides 8.6 mg tablet (senna) 17.2 mg PO BEDTIME PRN Constipation 08/12/23 08/12/23 oxycodone 10 mg tablet,crush 10 mg PO BID 08/13/23 08/13/23 resistant,extended release 12 hr (OxyContin) Previous Rx's Medication Instructions Recorded hydrocodone 5 mg-acetaminophen 325 2 tab PO Q6H PRN pain #30 tabs 10/18/22 mg tablet Allergies Allergy/AdvReac Type Severity Reaction Status Date / Time crab Allergy Severe Deathly Verified 02/05/23 10:58 sick aspartame Allergy Unknown Verified 02/05/23 10:58 carbidopa Allergy Hallucinations, Verified 02/05/23 10:58 anxiety morphine AdvReac Nausea/vomi Verified 02/05/23 10:58 ting Review of Systems <Keshia Johnson MD - Last Filed: 08/13/23 00:11> Review of Systems Narrative: Negative except as noted above Patient History <Keshia Johnson MD - Last Filed: 08/13/23 00:11> Medical History DVT (deep venous thrombosis) History of left heart catheterization (12/2019) Atrial fibrillation Paroxysmal A-fib RBBB LAFB (left anterior fascicular block) First degree AV block History of transcatheter aortic valve replacement (TAVR) (08/01/18) Sleep apnea CAD (coronary artery disease) Stress incontinence Enlarged lymph node Chronic anticoagulation Androgen deprivation therapy Stress incontinence, male History of radiation therapy Hydronephrosis, right Prostate cancer Osteoarthritis Hypertension Gout Depression History of prostate cancer Arthritis GERD (gastroesophageal reflux disease) Diabetes Congestive heart failure Pacemaker Surgical History AICD (automatic cardioverter/defibrillator) present (12/30/20) Hx of heart artery stent History of back surgery H/O aortic valve replacement Family History Mother Coronary artery disease involving bypass graft of transplanted heart Cancer Hypertension Social History marital status: number of children: 3 household members: none Previous occupational history: retired Smoking Status: Former smoker alcohol intake: never caffeine: Yes Smoking Status: Former smoker tobacco type: cigarettes alcohol intake frequency: 0-2 drinks per day Substance Use Type: does not use and former substance user Exam <Keshia Johnson MD - Last Filed: 08/13/23 00:11> Narrative Exam Narrative: Const: Awake, alert, appears chronically unwell, frail Cardiac: regular rate, regular rhythm RESP: unlabored, clear bilaterally, no wheezing GI: Soft, midepigastric tenderness to deep palpation without rebound or guarding Skin: Warm, Dry, intact, no rashes Neuro: AO x3, CN II-XII grossly intact, moves all extremities Initial Vital Signs Initial Vital Signs: Vital Signs Pulse Rate 83 08/12/23 05:36 Pulse Oximetry 93 08/12/23 05:36 <Sepideh Gutiérrez DO - Last Filed: 08/13/23 07:28> Initial Vital Signs Initial Vital Signs: Vital Signs Pulse Rate 83 08/12/23 05:36 Pulse Oximetry 93 08/12/23 05:36 Course <Keshia Johnson MD - Last Filed: 08/13/23 00:11> Orders Ordered: Acetaminophen (Acetaminophen 325 Mg Tablet) 650 mg PO Q6H PRN PRN Reason: Fever/Mild Pain (1-3) Last Admin: 08/13/23 03:12 Dose: 650 mg Documented By: VESTA Acetaminophen (Acetaminophen 325 Mg Tablet) 650 mg PO Q4H PRN PRN Reason: Pain, Mild (1-3) Hydrocodone Bitart/Acetaminophen (Hydrocodone/Acet 5/325 Tablet) 1 tab PO Q4H PRN PRN Reason: Pain, Moderate (4-6) Last Admin: 08/13/23 03:12 Dose: 1 tab Documented By: VESTA Hydrocodone Bitart/Acetaminophen (Hydrocodone/Acet 5/325 Tablet) 2 tab PO Q6H PRN PRN Reason: Pain, Severe (7-10) Atorvastatin Calcium (Atorvastatin 20 Mg Tablet) 40 mg PO BEDTIME ANNAMARIE Bicalutamide (Bicalutamide 50 Mg Tablet) 50 mg PO DAILY ANNAMARIE Ferrous Sulfate (Ferrous Sulfate 325 Mg Tablet) 325 mg PO DAILY ANNAMARIE Furosemide (Furosemide 40 Mg Tablet) 40 mg PO DAILY ANNAMARIE Gabapentin (Gabapentin 600 Mg Tablet) 600 mg PO BID ANNAMARIE Hydroxyzine HCl (Hydroxyzine Hcl 25 Mg Tablet) 25 mg PO BEDTIME PRN PRN Reason: Sleep Sodium Chloride (Normal Saline 0.9%) 1,000 mls @ 125 mls/hr IV CONT ANNAMARIE Last Admin: 08/13/23 02:27 Dose: 125 mls/hr Documented By: Infusion: 08/12/23 22:03 Dose: Infused Documented By: Admin: 08/12/23 14:03 Dose: 125 mls/hr Documented By: [facility] Vancomycin HCl (Vancomycin) 1,000 mg in 200 mls @ 200 mls/hr IV Q24H [facility] Insulin Glargine (Insulin Glargine 100 Unit/Ml 3ml Pen) 10 unit SUBCUT BEDTIME [facility] Lisinopril (Lisinopril 5 Mg Tablet) 2.5 mg PO DAILY [facility] Metoprolol Succinate (Metoprolol Er 25 Mg Tablet) 12.5 mg PO DAILY ANNAMARIE Naloxone HCl (Naloxone 0.4 Mg/Ml Vial) 0.2 mg IV Q2MIN PRN PRN Reason: Opiate Reversal Non-Formulary Medication (Insulin Lispro) 1 sliding scale dose SUBCUT USEASDIRECTD [facility] Ondansetron HCl (Ondansetron 4 Mg/2 Ml Inj) 4 mg IV Q8HR PRN PRN Reason: Nausea And Vomiting Ondansetron HCl (Ondansetron 4 Mg Odt) 8 mg PO Q6H PRN PRN Reason: Nausea Oxybutynin Chloride (Oxybutynin 5 Mg Er Tab) 10 mg PO DAILY ANNAMARIE Oxycodone HCl (Oxycodone Ir 5 Mg Tablet) 5 mg PO Q3H PRN PRN Reason: Pain, Moderate (4-6) Last Admin: 08/13/23 03:12 Dose: 5 mg Documented By: VESTA Pantoprazole Sodium (Pantoprazole Dr 40 Mg Tablet) 40 mg PO 0600 [facility] Pramipexole Dihydrochloride (Pramipexole 0.25 Mg Tablet) 0.5 mg PO DAILY ANNAMARIE Ropinirole HCl (Ropinirole 1 Mg Tablet) 2 mg PO BID ANNAMARIE Sennosides (Sennosides 8.6 Mg Tablet) 17.2 mg PO BEDTIME PRN PRN Reason: Constipation Sertraline HCl (Sertraline 50 Mg Tablet) 50 mg PO DAILY ANNAMARIE Spironolactone (Spironolactone 25 Mg Tablet) 25 mg PO BID ANNAMARIE Vancomycin HCl (Vancomycin Per Pharmacy) 1 request MISC NOW PRN PRN Reason: atrial Discontinued Medications Hydrocodone Bitart/Acetaminophen (Hydrocodone/Acet 5/325 Tablet) 2 tab PO NOW ONE Stop: 08/12/23 18:33 Last Admin: 08/12/23 18:36 Dose: 2 tab Documented By: OLI Ceftriaxone Sodium 2,000 mg/ (Sodium Chloride) 100 mls @ 200 mls/hr IV NOW ONE Stop: 08/12/23 06:28 Last Infusion: 08/12/23 08:05 Dose: Infused Documented By: Admin: 08/12/23 06:54 Dose: 200 mls/hr Documented By: GABY Azithromycin 500 mg/ Dextrose 250 mls @ 250 mls/hr IV NOW ONE Stop: 08/12/23 07:58 Last Infusion: 08/12/23 10:09 Dose: Infused Documented By: Admin: 08/12/23 08:56 Dose: 250 mls/hr Documented By: OLI Ertapenem 1 gm/ Sodium (Chloride) 100 mls @ 200 mls/hr IV NOW ONE Stop: 08/12/23 08:00 Last Infusion: 08/12/23 08:57 Dose: Infused Documented By: Admin: 08/12/23 08:15 Dose: 200 mls/hr Documented By: CARMELA Vancomycin HCl/Dextrose (Vancomycin) 2,000 mg in 400 mls @ 200 mls/hr IV NOW ONE Stop: 08/13/23 06:59 Last Infusion: 08/13/23 07:22 Dose: Infused Documented By: Admin: 08/13/23 04:53 Dose: 200 mls/hr Documented By: VESTA Non-Formulary Medication (Gabapentin) 600 mg PO BID ANNAMARIE Non-Formulary Medication (Insulin Glargine) 10 unit SUBCUT QPM ANNAMARIE Non-Formulary Medication (Lisinopril) 2.5 mg PO DAILY ANNAMARIE Non-Formulary Medication (Tolterodine [Detrol La]) 4 mg PO DAILY ANNAMARIE Ondansetron HCl (Ondansetron 4 Mg/2 Ml Inj) 4 mg IV NOW ONE Stop: 08/12/23 19:46 Last Admin: 08/12/23 19:48 Dose: 4 mg Documented By: [facility] Vital Signs Vital signs: Vital Signs - 8 hr 08/12/23 23:30 08/12/23 23:30 Pulse Rate 60 Respiratory Rate 15 Blood Pressure 108/55 L Pulse Oximetry 95 <Sepideh Gutiérrez, - Last Filed: 08/13/23 07:28> Orders Ordered: Acetaminophen (Acetaminophen 325 Mg Tablet) 650 mg PO Q6H PRN PRN Reason: Fever/Mild Pain (1-3) Last Admin: 08/13/23 03:12 Dose: 650 mg Documented By: VESTA Acetaminophen (Acetaminophen 325 Mg Tablet) 650 mg PO Q4H PRN PRN Reason: Pain, Mild (1-3) Hydrocodone Bitart/Acetaminophen (Hydrocodone/Acet 5/325 Tablet) 1 tab PO Q4H PRN PRN Reason: Pain, Moderate (4-6) Last Admin: 08/13/23 03:12 Dose: 1 tab Documented By: VESTA Hydrocodone Bitart/Acetaminophen (Hydrocodone/Acet 5/325 Tablet) 2 tab PO Q6H PRN PRN Reason: Pain, Severe (7-10) Atorvastatin Calcium (Atorvastatin 20 Mg Tablet) 40 mg PO BEDTIME ANNAMARIE Bicalutamide (Bicalutamide 50 Mg Tablet) 50 mg PO DAILY ANNAMARIE Ferrous Sulfate (Ferrous Sulfate 325 Mg Tablet) 325 mg PO DAILY ANNAMARIE Furosemide (Furosemide 40 Mg Tablet) 40 mg PO DAILY [facility] Gabapentin (Gabapentin 600 Mg Tablet) 600 mg PO BID [facility] Hydroxyzine HCl (Hydroxyzine Hcl 25 Mg Tablet) 25 mg PO BEDTIME PRN PRN Reason: Sleep Sodium Chloride (Normal Saline 0.9%) 1,000 mls @ 125 mls/hr IV CONT ANNAMARIE Last Admin: 08/13/23 02:27 Dose: 125 mls/hr Documented By: Infusion: 08/12/23 22:03 Dose: Infused Documented By: Admin: 08/12/23 14:03 Dose: 125 mls/hr Documented By: OLI Vancomycin HCl (Vancomycin) 1,000 mg in 200 mls @ 200 mls/hr IV Q24H [facility] Insulin Glargine (Insulin Glargine 100 Unit/Ml 3ml Pen) 10 unit SUBCUT BEDTIME [facility] Lisinopril (Lisinopril 5 Mg Tablet) 2.5 mg PO DAILY [facility] Metoprolol Succinate (Metoprolol Er 25 Mg Tablet) 12.5 mg PO DAILY [facility] Naloxone HCl (Naloxone 0.4 Mg/Ml Vial) 0.2 mg IV Q2MIN PRN PRN Reason: Opiate Reversal Non-Formulary Medication (Insulin Lispro) 1 sliding scale dose SUBCUT USEASDIRECTD [facility] Ondansetron HCl (Ondansetron 4 Mg/2 Ml Inj) 4 mg IV Q8HR PRN PRN Reason: Nausea And Vomiting Ondansetron HCl (Ondansetron 4 Mg Odt) 8 mg PO Q6H PRN PRN Reason: Nausea Oxybutynin Chloride (Oxybutynin 5 Mg Er Tab) 10 mg PO DAILY [facility] Oxycodone HCl (Oxycodone Ir 5 Mg Tablet) 5 mg PO Q3H PRN PRN Reason: Pain, Moderate (4-6) Last Admin: 08/13/23 03:12 Dose: 5 mg Documented By: VESTA Pantoprazole Sodium (Pantoprazole Dr 40 Mg Tablet) 40 mg PO 0600 [facility] Pramipexole Dihydrochloride (Pramipexole 0.25 Mg Tablet) 0.5 mg PO DAILY [facility] Ropinirole HCl (Ropinirole 1 Mg Tablet) 2 mg PO BID [facility] Sennosides (Sennosides 8.6 Mg Tablet) 17.2 mg PO BEDTIME PRN PRN Reason: Constipation Sertraline HCl (Sertraline 50 Mg Tablet) 50 mg PO DAILY ANNAMARIE Spironolactone (Spironolactone 25 Mg Tablet) 25 mg PO BID ANNAMARIE Vancomycin HCl (Vancomycin Per Pharmacy) 1 request MISC NOW PRN PRN Reason: atrial Discontinued Medications Hydrocodone Bitart/Acetaminophen (Hydrocodone/Acet 5/325 Tablet) 2 tab PO NOW ONE Stop: 08/12/23 18:33 Last Admin: 08/12/23 18:36 Dose: 2 tab Documented By: OLI Ceftriaxone Sodium 2,000 mg/ (Sodium Chloride) 100 mls @ 200 mls/hr IV NOW ONE Stop: 08/12/23 06:28 Last Infusion: 08/12/23 08:05 Dose: Infused Documented By: Admin: 08/12/23 06:54 Dose: 200 mls/hr Documented By: GABY Azithromycin 500 mg/ Dextrose 250 mls @ 250 mls/hr IV NOW ONE Stop: 08/12/23 07:58 Last Infusion: 08/12/23 10:09 Dose: Infused Documented By: Admin: 08/12/23 08:56 Dose: 250 mls/hr Documented By: OLI Ertapenem 1 gm/ Sodium (Chloride) 100 mls @ 200 mls/hr IV NOW ONE Stop: 08/12/23 08:00 Last Infusion: 08/12/23 08:57 Dose: Infused Documented By: Admin: 08/12/23 08:15 Dose: 200 mls/hr Documented By: CARMELA Vancomycin HCl/Dextrose (Vancomycin) 2,000 mg in 400 mls @ 200 mls/hr IV NOW ONE Stop: 08/13/23 06:59 Last Infusion: 08/13/23 07:22 Dose: Infused Documented By: Admin: 08/13/23 04:53 Dose: 200 mls/hr Documented By: VESTA Non-Formulary Medication (Gabapentin) 600 mg PO BID ANNAMARIE Non-Formulary Medication (Insulin Glargine) 10 unit SUBCUT QPM ANNAMARIE Non-Formulary Medication (Lisinopril) 2.5 mg PO DAILY ANNAMARIE Non-Formulary Medication (Tolterodine [Detrol La]) 4 mg PO DAILY ANNAMARIE Ondansetron HCl (Ondansetron 4 Mg/2 Ml Inj) 4 mg IV NOW ONE Stop: 08/12/23 19:46 Last Admin: 08/12/23 19:48 Dose: 4 mg Documented By: [facility] Vital Signs Vital signs: Vital Signs - 8 hr 08/12/23 23:30 08/12/23 23:30 Pulse Rate 60 Respiratory Rate 15 Blood Pressure 108/55 L Pulse Oximetry 95 MDM - Abdominal Pain <Keshia Johnson MD - Last Filed: 08/13/23 00:11> Differential Diagnosis Differential diagnosis: Likely abdominal pain, acute appendicitis and calculus of kidney Lab Data 08/12/23 05:47 08/12/23 05:47 Labs: Lab Results 08/12/23 08/12/23 08/12/23 Range/Units 05:45 05:47 06:30 WBC 16.2 H (4.5-11.0) X10^3/uL RBC 4.08 L (4.5-5.9) X10^6/uL Hgb 11.6 L (13.5-17.5) g/dL Hct 34.9 L (41-53) % MCV 85.6 (80-100) fL MCH 28.5 (26-34) PG MCHC 33.3 (30-36) % RDW 17.9 H (11.6-14.8) % Plt Count 190 (150-400) X10^3/uL Neut % (Auto) 90.7 H (50-75) % Lymph % (Auto) 4.1 L (25-40) % [place] % (Auto) 4.0 (3-14) % Eos % (Auto) 0.7 L (2-4) % Baso % (Auto) 0.5 (0-2) % Neut # (Auto) 30709 H (4938-5024) /uL Lymph # (Auto) 700 L (7037-3987) /uL [place] # (Auto) 600 (0-900) /uL Eos # (Auto) 100 (0-450) /uL Baso # (Auto) 100 (0-100) /uL PT 18.8 H (9.4-12.5) SECONDS INR 1.6 H (0.9-1.3) Sodium 137 (137-145) mmol/L Potassium 4.1 (3.4-5.1) mmol/L Chloride 104 (98-107) mmol/L Carbon Dioxide 21 L (22-32) mmol/L BUN 25 H (9-20) mg/dL Creatinine 1.68 H (0.66-1.25) mg/dL Estimated GFR 42 L (>60) mL/min BUN/Creatinine Ratio 14.9 (6-22) Glucose 217 H (80-110) mg/dL Lactate 3.3 H (0.7-2.1) mmol/L Calcium 8.7 (8.4-10.2) mg/dL Total Bilirubin 0.7 (0.2-1.3) mg/dL AST 20 (17-59) IU/L ALT 14 (<50) IU/L Alkaline Phosphatase 91 (38-126) U/L Total Creatine Kinase 31 L (55-170) U/L Troponin I < 0.012 (0.01-0.034) ng/mL Total Protein 7.0 (6.3-8.2) g/dL Albumin 3.9 (3.5-5.0) g/dL Globulin 3.1 (1.7-4.1) g/dL Albumin/Globulin Ratio 1.3 (1.0-2.8) Lipase 59 (23-300) U/L Procalcitonin 0.18 (<0.5) ng/mL Urine Color Yellow Urine Appearance Urine pH (4.5-8.0) Ur Specific [place] (1.000-1.035) Urine Protein (Negative) Urine Glucose (UA) (Negative) g/dL Urine Ketones (NEGATIVE) Urine Occult Blood (Negative) Urine Nitrate (Negative) Urine Bilirubin (NEGATIVE) Urine Urobilinogen (0.2) E.U./dL Ur Leukocyte Esterase (NEGATIVE) Urine RBC (0-5/HPF) Urine WBC (0-5/HPF) Ur Squamous Epith Cells (0-5/HPF) Urine Bacteria (None) Ur Culture Indicated? Vol Urine Centrifuged Chlamy pneumoniae PCR Not detected (Not Detect) Adenovirus (PCR) Not detected (Not Detect) B.parapertussis DNA PCR Not detected (Not Detecte) Coronavirus OC43 (PCR) Not detected (Not Detect) Coronavirus HKU1 (PCR) Not detected (Not Detect) Coronavirus 229E (PCR) Not detected (Not Detect) SARS-CoV-2 (PCR) Not detected (Not Detecte) Coronavirus NL63 (PCR) Not detected (Not Detect) Human Metapneumovir PCR Not detected (Not Detect) Influenza Type A (PCR) Not detected (Not Detect) Influenza Type B (PCR) Not detected (Not Detect) M. pneumoniae (PCR) Not detected (Not Detect) Parainfluenza 1 (PCR) Not detected (Not Detect) Parainfluenza 2 (PCR) Not detected (Not Detect) Parainfluenza 3 (PCR) Not detected (Not Detect) Parainfluenza 4 (PCR) Not detected (Not Detect) RSV (PCR) Not detected (Not Detect) Entero/Rhino (PCR) Not detected (Not Detect) 08/12/23 08/12/23 08/12/23 Range/Units 06:30 06:30 06:30 WBC (4.5-11.0) X10^3/uL RBC (4.5-5.9) X10^6/uL Hgb (13.5-17.5) g/dL Hct (41-53) % MCV (80-100) fL MCH (26-34) PG MCHC (30-36) % RDW (11.6-14.8) % Plt Count (150-400) X10^3/uL Neut % (Auto) (50-75) % Lymph % (Auto) (25-40) % [place] % (Auto) (3-14) % Eos % (Auto) (2-4) % Baso % (Auto) (0-2) % Neut # (Auto) (1391-7698) /uL Lymph # (Auto) (6210-6141) /uL [place] # (Auto) (0-900) /uL Eos # (Auto) (0-450) /uL Baso # (Auto) (0-100) /uL PT (9.4-12.5) SECONDS INR (0.9-1.3) Sodium (137-145) mmol/L Potassium (3.4-5.1) mmol/L Chloride (98-107) mmol/L Carbon Dioxide (22-32) mmol/L BUN (9-20) mg/dL Creatinine (0.66-1.25) mg/dL Estimated GFR (>60) mL/min BUN/Creatinine Ratio (6-22) Glucose (80-110) mg/dL Lactate (0.7-2.1) mmol/L Calcium (8.4-10.2) mg/dL Total Bilirubin (0.2-1.3) mg/dL AST (17-59) IU/L ALT (<50) IU/L Alkaline Phosphatase (38-126) U/L Total Creatine Kinase (55-170) U/L Troponin I (0.01-0.034) ng/mL Total Protein (6.3-8.2) g/dL Albumin (3.5-5.0) g/dL Globulin (1.7-4.1) g/dL Albumin/Globulin Ratio (1.0-2.8) Lipase (23-300) U/L Procalcitonin (<0.5) ng/mL Urine Color Yellow Urine Appearance Clear Sl cloudy Urine pH 5.0 6.5 (4.5-8.0) Ur Specific [place] 1.020 (1.000-1.035) Urine Protein (Negative) Urine Glucose (UA) (Negative) g/dL Urine Ketones (NEGATIVE) Urine Occult Blood (Negative) Urine Nitrate (Negative) Urine Bilirubin (NEGATIVE) Urine Urobilinogen (0.2) E.U./dL Ur Leukocyte Esterase (NEGATIVE) Urine RBC (0-5/HPF) Urine WBC (0-5/HPF) Ur Squamous Epith Cells (0-5/HPF) Urine Bacteria (None) Ur Culture Indicated? Vol Urine Centrifuged Chlamy pneumoniae PCR (Not Detect) Adenovirus (PCR) (Not Detect) B.parapertussis DNA PCR (Not Detecte) Coronavirus OC43 (PCR) (Not Detect) Coronavirus HKU1 (PCR) (Not Detect) Coronavirus 229E (PCR) (Not Detect) SARS-CoV-2 (PCR) (Not Detecte) Coronavirus NL63 (PCR) (Not Detect) Human Metapneumovir PCR (Not Detect) Influenza Type A (PCR) (Not Detect) Influenza Type B (PCR) (Not Detect) M. pneumoniae (PCR) (Not Detect) Parainfluenza 1 (PCR) (Not Detect) Parainfluenza 2 (PCR) (Not Detect) Parainfluenza 3 (PCR) (Not Detect) Parainfluenza 4 (PCR) (Not Detect) RSV (PCR) (Not Detect) Entero/Rhino (PCR) (Not Detect) 08/12/23 08/12/23 08/12/23 Range/Units 06:30 06:30 06:30 WBC (4.5-11.0) X10^3/uL RBC (4.5-5.9) X10^6/uL Hgb (13.5-17.5) g/dL Hct (41-53) % MCV (80-100) fL MCH (26-34) PG MCHC (30-36) % RDW (11.6-14.8) % Plt Count (150-400) X10^3/uL Neut % (Auto) (50-75) % Lymph % (Auto) (25-40) % [place] % (Auto) (3-14) % Eos % (Auto) (2-4) % Baso % (Auto) (0-2) % Neut # (Auto) (6487-3790) /uL Lymph # (Auto) (8862-9116) /uL [place] # (Auto) (0-900) /uL Eos # (Auto) (0-450) /uL Baso # (Auto) (0-100) /uL PT (9.4-12.5) SECONDS INR (0.9-1.3) Sodium (137-145) mmol/L Potassium (3.4-5.1) mmol/L Chloride (98-107) mmol/L Carbon Dioxide (22-32) mmol/L BUN (9-20) mg/dL Creatinine (0.66-1.25) mg/dL Estimated GFR (>60) mL/min BUN/Creatinine Ratio (6-22) Glucose (80-110) mg/dL Lactate (0.7-2.1) mmol/L Calcium (8.4-10.2) mg/dL Total Bilirubin (0.2-1.3) mg/dL AST (17-59) IU/L ALT (<50) IU/L Alkaline Phosphatase (38-126) U/L Total Creatine Kinase (55-170) U/L Troponin I (0.01-0.034) ng/mL Total Protein (6.3-8.2) g/dL Albumin (3.5-5.0) g/dL Globulin (1.7-4.1) g/dL Albumin/Globulin Ratio (1.0-2.8) Lipase (23-300) U/L Procalcitonin (<0.5) ng/mL Urine Color Urine Appearance Urine pH (4.5-8.0) Ur Specific [place] 1.010 (1.000-1.035) Urine Protein Negative 1+ H (Negative) Urine Glucose (UA) Negative 1+ H (Negative) g/dL Urine Ketones Negative (NEGATIVE) Urine Occult Blood (Negative) Urine Nitrate (Negative) Urine Bilirubin (NEGATIVE) Urine Urobilinogen (0.2) E.U./dL Ur Leukocyte Esterase (NEGATIVE) Urine RBC (0-5/HPF) Urine WBC (0-5/HPF) Ur Squamous Epith Cells (0-5/HPF) Urine Bacteria (None) Ur Culture Indicated? Vol Urine Centrifuged Chlamy pneumoniae PCR (Not Detect) Adenovirus (PCR) (Not Detect) B.parapertussis DNA PCR (Not Detecte) Coronavirus OC43 (PCR) (Not Detect) Coronavirus HKU1 (PCR) (Not Detect) Coronavirus 229E (PCR) (Not Detect) SARS-CoV-2 (PCR) (Not Detecte) Coronavirus NL63 (PCR) (Not Detect) Human Metapneumovir PCR (Not Detect) Influenza Type A (PCR) (Not Detect) Influenza Type B (PCR) (Not Detect) M. pneumoniae (PCR) (Not Detect) Parainfluenza 1 (PCR) (Not Detect) Parainfluenza 2 (PCR) (Not Detect) Parainfluenza 3 (PCR) (Not Detect) Parainfluenza 4 (PCR) (Not Detect) RSV (PCR) (Not Detect) Entero/Rhino (PCR) (Not Detect) 08/12/23 08/12/23 08/12/23 Range/Units 06:30 06:30 06:30 WBC (4.5-11.0) X10^3/uL RBC (4.5-5.9) X10^6/uL Hgb (13.5-17.5) g/dL Hct (41-53) % MCV (80-100) fL MCH (26-34) PG MCHC (30-36) % RDW (11.6-14.8) % Plt Count (150-400) X10^3/uL Neut % (Auto) (50-75) % Lymph % (Auto) (25-40) % [place] % (Auto) (3-14) % Eos % (Auto) (2-4) % Baso % (Auto) (0-2) % Neut # (Auto) (0527-6170) /uL Lymph # (Auto) (8978-1084) /uL [place] # (Auto) (0-900) /uL Eos # (Auto) (0-450) /uL Baso # (Auto) (0-100) /uL PT (9.4-12.5) SECONDS INR (0.9-1.3) Sodium (137-145) mmol/L Potassium (3.4-5.1) mmol/L Chloride (98-107) mmol/L Carbon Dioxide (22-32) mmol/L BUN (9-20) mg/dL Creatinine (0.66-1.25) mg/dL Estimated GFR (>60) mL/min BUN/Creatinine Ratio (6-22) Glucose (80-110) mg/dL Lactate (0.7-2.1) mmol/L Calcium (8.4-10.2) mg/dL Total Bilirubin (0.2-1.3) mg/dL AST (17-59) IU/L ALT (<50) IU/L Alkaline Phosphatase (38-126) U/L Total Creatine Kinase (55-170) U/L Troponin I (0.01-0.034) ng/mL Total Protein (6.3-8.2) g/dL Albumin (3.5-5.0) g/dL Globulin (1.7-4.1) g/dL Albumin/Globulin Ratio (1.0-2.8) Lipase (23-300) U/L Procalcitonin (<0.5) ng/mL Urine Color Urine Appearance Urine pH (4.5-8.0) Ur Specific [place] (1.000-1.035) Urine Protein (Negative) Urine Glucose (UA) (Negative) g/dL Urine Ketones Negative (NEGATIVE) Urine Occult Blood Negative 2+ H (Negative) Urine Nitrate Negative Positive H (Negative) Urine Bilirubin Negative (NEGATIVE) Urine Urobilinogen (0.2) E.U./dL Ur Leukocyte Esterase (NEGATIVE) Urine RBC (0-5/HPF) Urine WBC (0-5/HPF) Ur Squamous Epith Cells (0-5/HPF) Urine Bacteria (None) Ur Culture Indicated? Vol Urine Centrifuged Chlamy pneumoniae PCR (Not Detect) Adenovirus (PCR) (Not Detect) B.parapertussis DNA PCR (Not Detecte) Coronavirus OC43 (PCR) (Not Detect) Coronavirus HKU1 (PCR) (Not Detect) Coronavirus 229E (PCR) (Not Detect) SARS-CoV-2 (PCR) (Not Detecte) Coronavirus NL63 (PCR) (Not Detect) Human Metapneumovir PCR (Not Detect) Influenza Type A (PCR) (Not Detect) Influenza Type B (PCR) (Not Detect) M. pneumoniae (PCR) (Not Detect) Parainfluenza 1 (PCR) (Not Detect) Parainfluenza 2 (PCR) (Not Detect) Parainfluenza 3 (PCR) (Not Detect) Parainfluenza 4 (PCR) (Not Detect) RSV (PCR) (Not Detect) Entero/Rhino (PCR) (Not Detect) 08/12/23 08/12/23 08/12/23 Range/Units 06:30 06:30 06:30 WBC (4.5-11.0) X10^3/uL RBC (4.5-5.9) X10^6/uL Hgb (13.5-17.5) g/dL Hct (41-53) % MCV (80-100) fL MCH (26-34) PG MCHC (30-36) % RDW (11.6-14.8) % Plt Count (150-400) X10^3/uL Neut % (Auto) (50-75) % Lymph % (Auto) (25-40) % [place] % (Auto) (3-14) % Eos % (Auto) (2-4) % Baso % (Auto) (0-2) % Neut # (Auto) (9058-6744) /uL Lymph # (Auto) (2716-4410) /uL [place] # (Auto) (0-900) /uL Eos # (Auto) (0-450) /uL Baso # (Auto) (0-100) /uL PT (9.4-12.5) SECONDS INR (0.9-1.3) Sodium (137-145) mmol/L Potassium (3.4-5.1) mmol/L Chloride (98-107) mmol/L Carbon Dioxide (22-32) mmol/L BUN (9-20) mg/dL Creatinine (0.66-1.25) mg/dL Estimated GFR (>60) mL/min BUN/Creatinine Ratio (6-22) Glucose (80-110) mg/dL Lactate (0.7-2.1) mmol/L Calcium (8.4-10.2) mg/dL Total Bilirubin (0.2-1.3) mg/dL AST (17-59) IU/L ALT (<50) IU/L Alkaline Phosphatase (38-126) U/L Total Creatine Kinase (55-170) U/L Troponin I (0.01-0.034) ng/mL Total Protein (6.3-8.2) g/dL Albumin (3.5-5.0) g/dL Globulin (1.7-4.1) g/dL Albumin/Globulin Ratio (1.0-2.8) Lipase (23-300) U/L Procalcitonin (<0.5) ng/mL Urine Color Urine Appearance Urine pH (4.5-8.0) Ur Specific [place] (1.000-1.035) Urine Protein (Negative) Urine Glucose (UA) (Negative) g/dL Urine Ketones (NEGATIVE) Urine Occult Blood (Negative) Urine Nitrate (Negative) Urine Bilirubin Negative (NEGATIVE) Urine Urobilinogen 0.2 0.2 (0.2) E.U./dL Ur Leukocyte Esterase Negative 3+ H (NEGATIVE) Urine RBC None seen (0-5/HPF) Urine WBC (0-5/HPF) Ur Squamous Epith Cells (0-5/HPF) Urine Bacteria (None) Ur Culture Indicated? Vol Urine Centrifuged Chlamy pneumoniae PCR (Not Detect) Adenovirus (PCR) (Not Detect) B.parapertussis DNA PCR (Not Detecte) Coronavirus OC43 (PCR) (Not Detect) Coronavirus HKU1 (PCR) (Not Detect) Coronavirus 229E (PCR) (Not Detect) SARS-CoV-2 (PCR) (Not Detecte) Coronavirus NL63 (PCR) (Not Detect) Human Metapneumovir PCR (Not Detect) Influenza Type A (PCR) (Not Detect) Influenza Type B (PCR) (Not Detect) M. pneumoniae (PCR) (Not Detect) Parainfluenza 1 (PCR) (Not Detect) Parainfluenza 2 (PCR) (Not Detect) Parainfluenza 3 (PCR) (Not Detect) Parainfluenza 4 (PCR) (Not Detect) RSV (PCR) (Not Detect) Entero/Rhino (PCR) (Not Detect) 08/12/23 08/12/23 08/12/23 Range/Units 06:30 06:30 06:30 WBC (4.5-11.0) X10^3/uL RBC (4.5-5.9) X10^6/uL Hgb (13.5-17.5) g/dL Hct (41-53) % MCV (80-100) fL MCH (26-34) PG MCHC (30-36) % RDW (11.6-14.8) % Plt Count (150-400) X10^3/uL Neut % (Auto) (50-75) % Lymph % (Auto) (25-40) % [place] % (Auto) (3-14) % Eos % (Auto) (2-4) % Baso % (Auto) (0-2) % Neut # (Auto) (4661-4548) /uL Lymph # (Auto) (8981-2297) /uL [place] # (Auto) (0-900) /uL Eos # (Auto) (0-450) /uL Baso # (Auto) (0-100) /uL PT (9.4-12.5) SECONDS INR (0.9-1.3) Sodium (137-145) mmol/L Potassium (3.4-5.1) mmol/L Chloride (98-107) mmol/L Carbon Dioxide (22-32) mmol/L BUN (9-20) mg/dL Creatinine (0.66-1.25) mg/dL Estimated GFR (>60) mL/min BUN/Creatinine Ratio (6-22) Glucose (80-110) mg/dL Lactate (0.7-2.1) mmol/L Calcium (8.4-10.2) mg/dL Total Bilirubin (0.2-1.3) mg/dL AST (17-59) IU/L ALT (<50) IU/L Alkaline Phosphatase (38-126) U/L Total Creatine Kinase (55-170) U/L Troponin I (0.01-0.034) ng/mL Total Protein (6.3-8.2) g/dL Albumin (3.5-5.0) g/dL Globulin (1.7-4.1) g/dL Albumin/Globulin Ratio (1.0-2.8) Lipase (23-300) U/L Procalcitonin (<0.5) ng/mL Urine Color Urine Appearance Urine pH (4.5-8.0) Ur Specific [place] (1.000-1.035) Urine Protein (Negative) Urine Glucose (UA) (Negative) g/dL Urine Ketones (NEGATIVE) Urine Occult Blood (Negative) Urine Nitrate (Negative) Urine Bilirubin (NEGATIVE) Urine Urobilinogen (0.2) E.U./dL Ur Leukocyte Esterase (NEGATIVE) Urine RBC 1-5/hpf (0-5/HPF) Urine WBC None seen 5-10/hpf H (0-5/HPF) Ur Squamous Epith Cells None seen 1-5 /hpf (0-5/HPF) Urine Bacteria None seen (None) Ur Culture Indicated? Vol Urine Centrifuged Chlamy pneumoniae PCR (Not Detect) Adenovirus (PCR) (Not Detect) B.parapertussis DNA PCR (Not Detecte) Coronavirus OC43 (PCR) (Not Detect) Coronavirus HKU1 (PCR) (Not Detect) Coronavirus 229E (PCR) (Not Detect) SARS-CoV-2 (PCR) (Not Detecte) Coronavirus NL63 (PCR) (Not Detect) Human Metapneumovir PCR (Not Detect) Influenza Type A (PCR) (Not Detect) Influenza Type B (PCR) (Not Detect) M. pneumoniae (PCR) (Not Detect) Parainfluenza 1 (PCR) (Not Detect) Parainfluenza 2 (PCR) (Not Detect) Parainfluenza 3 (PCR) (Not Detect) Parainfluenza 4 (PCR) (Not Detect) RSV (PCR) (Not Detect) Entero/Rhino (PCR) (Not Detect) 08/12/23 08/12/23 08/12/23 Range/Units 06:30 06:30 06:30 WBC (4.5-11.0) X10^3/uL RBC (4.5-5.9) X10^6/uL Hgb (13.5-17.5) g/dL Hct (41-53) % MCV (80-100) fL MCH (26-34) PG MCHC (30-36) % RDW (11.6-14.8) % Plt Count (150-400) X10^3/uL Neut % (Auto) (50-75) % Lymph % (Auto) (25-40) % [place] % (Auto) (3-14) % Eos % (Auto) (2-4) % Baso % (Auto) (0-2) % Neut # (Auto) (3508-1857) /uL Lymph # (Auto) (4953-1349) /uL [place] # (Auto) (0-900) /uL Eos # (Auto) (0-450) /uL Baso # (Auto) (0-100) /uL PT (9.4-12.5) SECONDS INR (0.9-1.3) Sodium (137-145) mmol/L Potassium (3.4-5.1) mmol/L Chloride (98-107) mmol/L Carbon Dioxide (22-32) mmol/L BUN (9-20) mg/dL Creatinine (0.66-1.25) mg/dL Estimated GFR (>60) mL/min BUN/Creatinine Ratio (6-22) Glucose (80-110) mg/dL Lactate (0.7-2.1) mmol/L Calcium (8.4-10.2) mg/dL Total Bilirubin (0.2-1.3) mg/dL AST (17-59) IU/L ALT (<50) IU/L Alkaline Phosphatase (38-126) U/L Total Creatine Kinase (55-170) U/L Troponin I (0.01-0.034) ng/mL Total Protein (6.3-8.2) g/dL Albumin (3.5-5.0) g/dL Globulin (1.7-4.1) g/dL Albumin/Globulin Ratio (1.0-2.8) Lipase (23-300) U/L Procalcitonin (<0.5) ng/mL Urine Color Urine Appearance Urine pH (4.5-8.0) Ur Specific [place] (1.000-1.035) Urine Protein (Negative) Urine Glucose (UA) (Negative) g/dL Urine Ketones (NEGATIVE) Urine Occult Blood (Negative) Urine Nitrate (Negative) Urine Bilirubin (NEGATIVE) Urine Urobilinogen (0.2) E.U./dL Ur Leukocyte Esterase (NEGATIVE) Urine RBC (0-5/HPF) Urine WBC (0-5/HPF) Ur Squamous Epith Cells (0-5/HPF) Urine Bacteria Many (>30) H D (None) Ur Culture Indicated? Cult not indicated Specimen cultured Vol Urine Centrifuged 10ml (spun) 10ml (spun) Chlamy pneumoniae PCR (Not Detect) Adenovirus (PCR) (Not Detect) B.parapertussis DNA PCR (Not Detecte) Coronavirus OC43 (PCR) (Not Detect) Coronavirus HKU1 (PCR) (Not Detect) Coronavirus 229E (PCR) (Not Detect) SARS-CoV-2 (PCR) (Not Detecte) Coronavirus NL63 (PCR) (Not Detect) Human Metapneumovir PCR (Not Detect) Influenza Type A (PCR) (Not Detect) Influenza Type B (PCR) (Not Detect) M. pneumoniae (PCR) (Not Detect) Parainfluenza 1 (PCR) (Not Detect) Parainfluenza 2 (PCR) (Not Detect) Parainfluenza 3 (PCR) (Not Detect) Parainfluenza 4 (PCR) (Not Detect) RSV (PCR) (Not Detect) Entero/Rhino (PCR) (Not Detect) 08/12/23 08/12/23 08/12/23 Range/Units 07:58 10:12 12:18 WBC (4.5-11.0) X10^3/uL RBC (4.5-5.9) X10^6/uL Hgb (13.5-17.5) g/dL Hct (41-53) % MCV (80-100) fL MCH (26-34) PG MCHC (30-36) % RDW (11.6-14.8) % Plt Count (150-400) X10^3/uL Neut % (Auto) (50-75) % Lymph % (Auto) (25-40) % [place] % (Auto) (3-14) % Eos % (Auto) (2-4) % Baso % (Auto) (0-2) % Neut # (Auto) (3029-5627) /uL Lymph # (Auto) (6645-2893) /uL [place] # (Auto) (0-900) /uL Eos # (Auto) (0-450) /uL Baso # (Auto) (0-100) /uL PT (9.4-12.5) SECONDS INR (0.9-1.3) Sodium (137-145) mmol/L Potassium (3.4-5.1) mmol/L Chloride (98-107) mmol/L Carbon Dioxide (22-32) mmol/L BUN (9-20) mg/dL Creatinine (0.66-1.25) mg/dL Estimated GFR (>60) mL/min BUN/Creatinine Ratio (6-22) Glucose (80-110) mg/dL Lactate 3.0 H 2.3 H 2.6 H (0.7-2.1) mmol/L Calcium (8.4-10.2) mg/dL Total Bilirubin (0.2-1.3) mg/dL AST (17-59) IU/L ALT (<50) IU/L Alkaline Phosphatase (38-126) U/L Total Creatine Kinase (55-170) U/L Troponin I (0.01-0.034) ng/mL Total Protein (6.3-8.2) g/dL Albumin (3.5-5.0) g/dL Globulin (1.7-4.1) g/dL Albumin/Globulin Ratio (1.0-2.8) Lipase (23-300) U/L Procalcitonin (<0.5) ng/mL Urine Color Urine Appearance Urine pH (4.5-8.0) Ur Specific [place] (1.000-1.035) Urine Protein (Negative) Urine Glucose (UA) (Negative) g/dL Urine Ketones (NEGATIVE) Urine Occult Blood (Negative) Urine Nitrate (Negative) Urine Bilirubin (NEGATIVE) Urine Urobilinogen (0.2) E.U./dL Ur Leukocyte Esterase (NEGATIVE) Urine RBC (0-5/HPF) Urine WBC (0-5/HPF) Ur Squamous Epith Cells (0-5/HPF) Urine Bacteria (None) Ur Culture Indicated? Vol Urine Centrifuged Chlamy pneumoniae PCR (Not Detect) Adenovirus (PCR) (Not Detect) B.parapertussis DNA PCR (Not Detecte) Coronavirus OC43 (PCR) (Not Detect) Coronavirus HKU1 (PCR) (Not Detect) Coronavirus 229E (PCR) (Not Detect) SARS-CoV-2 (PCR) (Not Detecte) Coronavirus NL63 (PCR) (Not Detect) Human Metapneumovir PCR (Not Detect) Influenza Type A (PCR) (Not Detect) Influenza Type B (PCR) (Not Detect) M. pneumoniae (PCR) (Not Detect) Parainfluenza 1 (PCR) (Not Detect) Parainfluenza 2 (PCR) (Not Detect) Parainfluenza 3 (PCR) (Not Detect) Parainfluenza 4 (PCR) (Not Detect) RSV (PCR) (Not Detect) Entero/Rhino (PCR) (Not Detect) 08/12/23 08/12/23 Range/Units 14:18 16:15 WBC (4.5-11.0) X10^3/uL RBC (4.5-5.9) X10^6/uL Hgb (13.5-17.5) g/dL Hct (41-53) % MCV (80-100) fL MCH (26-34) PG MCHC (30-36) % RDW (11.6-14.8) % Plt Count (150-400) X10^3/uL Neut % (Auto) (50-75) % Lymph % (Auto) (25-40) % [place] % (Auto) (3-14) % Eos % (Auto) (2-4) % Baso % (Auto) (0-2) % Neut # (Auto) (1264-3707) /uL Lymph # (Auto) (0703-1486) /uL [place] # (Auto) (0-900) /uL Eos # (Auto) (0-450) /uL Baso # (Auto) (0-100) /uL PT (9.4-12.5) SECONDS INR (0.9-1.3) Sodium (137-145) mmol/L Potassium (3.4-5.1) mmol/L Chloride (98-107) mmol/L Carbon Dioxide (22-32) mmol/L BUN (9-20) mg/dL Creatinine (0.66-1.25) mg/dL Estimated GFR (>60) mL/min BUN/Creatinine Ratio (6-22) Glucose (80-110) mg/dL Lactate 2.1 1.7 (0.7-2.1) mmol/L Calcium (8.4-10.2) mg/dL Total Bilirubin (0.2-1.3) mg/dL AST (17-59) IU/L ALT (<50) IU/L Alkaline Phosphatase (38-126) U/L Total Creatine Kinase (55-170) U/L Troponin I (0.01-0.034) ng/mL Total Protein (6.3-8.2) g/dL Albumin (3.5-5.0) g/dL Globulin (1.7-4.1) g/dL Albumin/Globulin Ratio (1.0-2.8) Lipase (23-300) U/L Procalcitonin (<0.5) ng/mL Urine Color Urine Appearance Urine pH (4.5-8.0) Ur Specific [place] (1.000-1.035) Urine Protein (Negative) Urine Glucose (UA) (Negative) g/dL Urine Ketones (NEGATIVE) Urine Occult Blood (Negative) Urine Nitrate (Negative) Urine Bilirubin (NEGATIVE) Urine Urobilinogen (0.2) E.U./dL Ur Leukocyte Esterase (NEGATIVE) Urine RBC (0-5/HPF) Urine WBC (0-5/HPF) Ur Squamous Epith Cells (0-5/HPF) Urine Bacteria (None) Ur Culture Indicated? Vol Urine Centrifuged Chlamy pneumoniae PCR (Not Detect) Adenovirus (PCR) (Not Detect) B.parapertussis DNA PCR (Not Detecte) Coronavirus OC43 (PCR) (Not Detect) Coronavirus HKU1 (PCR) (Not Detect) Coronavirus 229E (PCR) (Not Detect) SARS-CoV-2 (PCR) (Not Detecte) Coronavirus NL63 (PCR) (Not Detect) Human Metapneumovir PCR (Not Detect) Influenza Type A (PCR) (Not Detect) Influenza Type B (PCR) (Not Detect) M. pneumoniae (PCR) (Not Detect) Parainfluenza 1 (PCR) (Not Detect) Parainfluenza 2 (PCR) (Not Detect) Parainfluenza 3 (PCR) (Not Detect) Parainfluenza 4 (PCR) (Not Detect) RSV (PCR) (Not Detect) Entero/Rhino (PCR) (Not Detect) Point of care testing: Point of Care Testing Glucose POC 151 ECG Data Interpretation: Atrial sensed- ventricular paced rhythm, rate 89bpm, no ST-T wave changes Treatment and Disposition Social Determinants of Health that impact treatment or disposition: [facility] resident Code Status and discussions:: DNR per POLST form MDM Narrative Medical decision making narrative: Chronically unwell appearing patient presenting with nausea, vomiting, midepigastric abdominal pain. Abdomen is soft but he was tender in the midepigastric regions. Vital signs notable for oxygen saturation 91% on room air, patient denying shortness of breath or chest pain. Nausea improved with Zofran given prior to arrival. Given patient's low oxygen saturation as well as history of congestive heart failure will not give fluids at this time. Labs, CT imaging ordered. Shortly after arrival patient's temperature measured at 100.2 F. initial labs concerning for WBC count 16.2 with high neutrophil predominance. Blood cultures, lactic acid, procalcitonin added to lab work, empiric Rocephin ordered based on patient's previous culture history. Pending x-ray, CT imaging, additional laboratory work. Care of patient is signed out to Dr. Gutiérrez at [id number] Gutiérrez Patient signed out to me by Dr. Johnson and see and evaluated patient myself. He is sitting in bed overall appears well and non toxic. Abdomen is soft and nontender. Urine has positive nitrates from the nephrostomy tube. He has frequently had UTIs in the past. He had low-grade temperature of 100.2? on arrival with leukocytosis of 16.2. He was given Rocephin based on previous cultures from June of 2023. He did have some lower oxygen levels but he denies any cough or shortness of breath. X-ray does show multifocal left lower lobe infiltrate and a left pleural effusion. He reports that he has previously had pneumonia he thinks it is possible he could have it again but really denies any of the symptoms. Patient reports that nephrostomy tube initially was placed in [place]. According to CT nephrostomy tube appears malpositioned. 0900Discussed case with on-call Urology Dr. Barker, recommends that patient be transferred so that interventional radiology can replace the nephrostomy tube he does not get further septic. Ertapenem is added to patient's antibiotic Rocephin and azithromycin he has previously had ESBL UTI. Elieser Ramírez accepts at [facility] 1999 - Informed by [facility] that they could not accept the patient unless able to be placed on the IR schedule for replacement. Informed by IR department that it could be days before there was room in the schedule for this patient. While awaiting tranfer to [facility] will admit patient here for further antibiotics and treatment. <Sepideh Gutiérrez, - Last Filed: 08/13/23 07:28> Lab Data Labs: Lab Results 08/12/23 08/12/23 08/12/23 Range/Units 05:45 05:47 06:30 WBC 16.2 H (4.5-11.0) X10^3/uL RBC 4.08 L (4.5-5.9) X10^6/uL Hgb 11.6 L (13.5-17.5) g/dL Hct 34.9 L (41-53) % MCV 85.6 (80-100) fL MCH 28.5 (26-34) PG MCHC 33.3 (30-36) % RDW 17.9 H (11.6-14.8) % Plt Count 190 (150-400) X10^3/uL Neut % (Auto) 90.7 H (50-75) % Lymph % (Auto) 4.1 L (25-40) % [place] % (Auto) 4.0 (3-14) % Eos % (Auto) 0.7 L (2-4) % Baso % (Auto) 0.5 (0-2) % Neut # (Auto) 96124 H (1641-6943) /uL Lymph # (Auto) 700 L (7388-6372) /uL [place] # (Auto) 600 (0-900) /uL Eos # (Auto) 100 (0-450) /uL Baso # (Auto) 100 (0-100) /uL PT 18.8 H (9.4-12.5) SECONDS INR 1.6 H (0.9-1.3) Sodium 137 (137-145) mmol/L Potassium 4.1 (3.4-5.1) mmol/L Chloride 104 (98-107) mmol/L Carbon Dioxide 21 L (22-32) mmol/L BUN 25 H (9-20) mg/dL Creatinine 1.68 H (0.66-1.25) mg/dL Estimated GFR 42 L (>60) mL/min BUN/Creatinine Ratio 14.9 (6-22) Glucose 217 H (80-110) mg/dL Lactate 3.3 H (0.7-2.1) mmol/L Calcium 8.7 (8.4-10.2) mg/dL Total Bilirubin 0.7 (0.2-1.3) mg/dL AST 20 (17-59) IU/L ALT 14 (<50) IU/L Alkaline Phosphatase 91 (38-126) U/L Total Creatine Kinase 31 L (55-170) U/L Troponin I < 0.012 (0.01-0.034) ng/mL Total Protein 7.0 (6.3-8.2) g/dL Albumin 3.9 (3.5-5.0) g/dL Globulin 3.1 (1.7-4.1) g/dL Albumin/Globulin Ratio 1.3 (1.0-2.8) Lipase 59 (23-300) U/L Procalcitonin 0.18 (<0.5) ng/mL Urine Color Yellow Urine Appearance Urine pH (4.5-8.0) Ur Specific [place] (1.000-1.035) Urine Protein (Negative) Urine Glucose (UA) (Negative) g/dL Urine Ketones (NEGATIVE) Urine Occult Blood (Negative) Urine Nitrate (Negative) Urine Bilirubin (NEGATIVE) Urine Urobilinogen (0.2) E.U./dL Ur Leukocyte Esterase (NEGATIVE) Urine RBC (0-5/HPF) Urine WBC (0-5/HPF) Ur Squamous Epith Cells (0-5/HPF) Urine Bacteria (None) Ur Culture Indicated? Vol Urine Centrifuged Chlamy pneumoniae PCR Not detected (Not Detect) Adenovirus (PCR) Not detected (Not Detect) B.parapertussis DNA PCR Not detected (Not Detecte) Coronavirus OC43 (PCR) Not detected (Not Detect) Coronavirus HKU1 (PCR) Not detected (Not Detect) Coronavirus 229E (PCR) Not detected (Not Detect) SARS-CoV-2 (PCR) Not detected (Not Detecte) Coronavirus NL63 (PCR) Not detected (Not Detect) Human Metapneumovir PCR Not detected (Not Detect) Influenza Type A (PCR) Not detected (Not Detect) Influenza Type B (PCR) Not detected (Not Detect) M. pneumoniae (PCR) Not detected (Not Detect) Parainfluenza 1 (PCR) Not detected (Not Detect) Parainfluenza 2 (PCR) Not detected (Not Detect) Parainfluenza 3 (PCR) Not detected (Not Detect) Parainfluenza 4 (PCR) Not detected (Not Detect) RSV (PCR) Not detected (Not Detect) Entero/Rhino (PCR) Not detected (Not Detect) 08/12/23 08/12/23 08/12/23 Range/Units 06:30 06:30 06:30 WBC (4.5-11.0) X10^3/uL RBC (4.5-5.9) X10^6/uL Hgb (13.5-17.5) g/dL Hct (41-53) % MCV (80-100) fL MCH (26-34) PG MCHC (30-36) % RDW (11.6-14.8) % Plt Count (150-400) X10^3/uL Neut % (Auto) (50-75) % Lymph % (Auto) (25-40) % [place] % (Auto) (3-14) % Eos % (Auto) (2-4) % Baso % (Auto) (0-2) % Neut # (Auto) (0255-5937) /uL Lymph # (Auto) (7875-8808) /uL [place] # (Auto) (0-900) /uL Eos # (Auto) (0-450) /uL Baso # (Auto) (0-100) /uL PT (9.4-12.5) SECONDS INR (0.9-1.3) Sodium (137-145) mmol/L Potassium (3.4-5.1) mmol/L Chloride (98-107) mmol/L Carbon Dioxide (22-32) mmol/L BUN (9-20) mg/dL Creatinine (0.66-1.25) mg/dL Estimated GFR (>60) mL/min BUN/Creatinine Ratio (6-22) Glucose (80-110) mg/dL Lactate (0.7-2.1) mmol/L Calcium (8.4-10.2) mg/dL Total Bilirubin (0.2-1.3) mg/dL AST (17-59) IU/L ALT (<50) IU/L Alkaline Phosphatase (38-126) U/L Total Creatine Kinase (55-170) U/L Troponin I (0.01-0.034) ng/mL Total Protein (6.3-8.2) g/dL Albumin (3.5-5.0) g/dL Globulin (1.7-4.1) g/dL Albumin/Globulin Ratio (1.0-2.8) Lipase (23-300) U/L Procalcitonin (<0.5) ng/mL Urine Color Yellow Urine Appearance Clear Sl cloudy Urine pH 5.0 6.5 (4.5-8.0) Ur Specific [place] 1.020 (1.000-1.035) Urine Protein (Negative) Urine Glucose (UA) (Negative) g/dL Urine Ketones (NEGATIVE) Urine Occult Blood (Negative) Urine Nitrate (Negative) Urine Bilirubin (NEGATIVE) Urine Urobilinogen (0.2) E.U./dL Ur Leukocyte Esterase (NEGATIVE) Urine RBC (0-5/HPF) Urine WBC (0-5/HPF) Ur Squamous Epith Cells (0-5/HPF) Urine Bacteria (None) Ur Culture Indicated? Vol Urine Centrifuged Chlamy pneumoniae PCR (Not Detect) Adenovirus (PCR) (Not Detect) B.parapertussis DNA PCR (Not Detecte) Coronavirus OC43 (PCR) (Not Detect) Coronavirus HKU1 (PCR) (Not Detect) Coronavirus 229E (PCR) (Not Detect) SARS-CoV-2 (PCR) (Not Detecte) Coronavirus NL63 (PCR) (Not Detect) Human Metapneumovir PCR (Not Detect) Influenza Type A (PCR) (Not Detect) Influenza Type B (PCR) (Not Detect) M. pneumoniae (PCR) (Not Detect) Parainfluenza 1 (PCR) (Not Detect) Parainfluenza 2 (PCR) (Not Detect) Parainfluenza 3 (PCR) (Not Detect) Parainfluenza 4 (PCR) (Not Detect) RSV (PCR) (Not Detect) Entero/Rhino (PCR) (Not Detect) 08/12/23 08/12/23 08/12/23 Range/Units 06:30 06:30 06:30 WBC (4.5-11.0) X10^3/uL RBC (4.5-5.9) X10^6/uL Hgb (13.5-17.5) g/dL Hct (41-53) % MCV (80-100) fL MCH (26-34) PG MCHC (30-36) % RDW (11.6-14.8) % Plt Count (150-400) X10^3/uL Neut % (Auto) (50-75) % Lymph % (Auto) (25-40) % [place] % (Auto) (3-14) % Eos % (Auto) (2-4) % Baso % (Auto) (0-2) % Neut # (Auto) (9229-3646) /uL Lymph # (Auto) (6022-7395) /uL [place] # (Auto) (0-900) /uL Eos # (Auto) (0-450) /uL Baso # (Auto) (0-100) /uL PT (9.4-12.5) SECONDS INR (0.9-1.3) Sodium (137-145) mmol/L Potassium (3.4-5.1) mmol/L Chloride (98-107) mmol/L Carbon Dioxide (22-32) mmol/L BUN (9-20) mg/dL Creatinine (0.66-1.25) mg/dL Estimated GFR (>60) mL/min BUN/Creatinine Ratio (6-22) Glucose (80-110) mg/dL Lactate (0.7-2.1) mmol/L Calcium (8.4-10.2) mg/dL Total Bilirubin (0.2-1.3) mg/dL AST (17-59) IU/L ALT (<50) IU/L Alkaline Phosphatase (38-126) U/L Total Creatine Kinase (55-170) U/L Troponin I (0.01-0.034) ng/mL Total Protein (6.3-8.2) g/dL Albumin (3.5-5.0) g/dL Globulin (1.7-4.1) g/dL Albumin/Globulin Ratio (1.0-2.8) Lipase (23-300) U/L Procalcitonin (<0.5) ng/mL Urine Color Urine Appearance Urine pH (4.5-8.0) Ur Specific [place] 1.010 (1.000-1.035) Urine Protein Negative 1+ H (Negative) Urine Glucose (UA) Negative 1+ H (Negative) g/dL Urine Ketones Negative (NEGATIVE) Urine Occult Blood (Negative) Urine Nitrate (Negative) Urine Bilirubin (NEGATIVE) Urine Urobilinogen (0.2) E.U./dL Ur Leukocyte Esterase (NEGATIVE) Urine RBC (0-5/HPF) Urine WBC (0-5/HPF) Ur Squamous Epith Cells (0-5/HPF) Urine Bacteria (None) Ur Culture Indicated? Vol Urine Centrifuged Chlamy pneumoniae PCR (Not Detect) Adenovirus (PCR) (Not Detect) B.parapertussis DNA PCR (Not Detecte) Coronavirus OC43 (PCR) (Not Detect) Coronavirus HKU1 (PCR) (Not Detect) Coronavirus 229E (PCR) (Not Detect) SARS-CoV-2 (PCR) (Not Detecte) Coronavirus NL63 (PCR) (Not Detect) Human Metapneumovir PCR (Not Detect) Influenza Type A (PCR) (Not Detect) Influenza Type B (PCR) (Not Detect) M. pneumoniae (PCR) (Not Detect) Parainfluenza 1 (PCR) (Not Detect) Parainfluenza 2 (PCR) (Not Detect) Parainfluenza 3 (PCR) (Not Detect) Parainfluenza 4 (PCR) (Not Detect) RSV (PCR) (Not Detect) Entero/Rhino (PCR) (Not Detect) 08/12/23 08/12/23 08/12/23 Range/Units 06:30 06:30 06:30 WBC (4.5-11.0) X10^3/uL RBC (4.5-5.9) X10^6/uL Hgb (13.5-17.5) g/dL Hct (41-53) % MCV (80-100) fL MCH (26-34) PG MCHC (30-36) % RDW (11.6-14.8) % Plt Count (150-400) X10^3/uL Neut % (Auto) (50-75) % Lymph % (Auto) (25-40) % [place] % (Auto) (3-14) % Eos % (Auto) (2-4) % Baso % (Auto) (0-2) % Neut # (Auto) (5091-8942) /uL Lymph # (Auto) (0677-5210) /uL [place] # (Auto) (0-900) /uL Eos # (Auto) (0-450) /uL Baso # (Auto) (0-100) /uL PT (9.4-12.5) SECONDS INR (0.9-1.3) Sodium (137-145) mmol/L Potassium (3.4-5.1) mmol/L Chloride (98-107) mmol/L Carbon Dioxide (22-32) mmol/L BUN (9-20) mg/dL Creatinine (0.66-1.25) mg/dL Estimated GFR (>60) mL/min BUN/Creatinine Ratio (6-22) Glucose (80-110) mg/dL Lactate (0.7-2.1) mmol/L Calcium (8.4-10.2) mg/dL Total Bilirubin (0.2-1.3) mg/dL AST (17-59) IU/L ALT (<50) IU/L Alkaline Phosphatase (38-126) U/L Total Creatine Kinase (55-170) U/L Troponin I (0.01-0.034) ng/mL Total Protein (6.3-8.2) g/dL Albumin (3.5-5.0) g/dL Globulin (1.7-4.1) g/dL Albumin/Globulin Ratio (1.0-2.8) Lipase (23-300) U/L Procalcitonin (<0.5) ng/mL Urine Color Urine Appearance Urine pH (4.5-8.0) Ur Specific [place] (1.000-1.035) Urine Protein (Negative) Urine Glucose (UA) (Negative) g/dL Urine Ketones Negative (NEGATIVE) Urine Occult Blood Negative 2+ H (Negative) Urine Nitrate Negative Positive H (Negative) Urine Bilirubin Negative (NEGATIVE) Urine Urobilinogen (0.2) E.U./dL Ur Leukocyte Esterase (NEGATIVE) Urine RBC (0-5/HPF) Urine WBC (0-5/HPF) Ur Squamous Epith Cells (0-5/HPF) Urine Bacteria (None) Ur Culture Indicated? Vol Urine Centrifuged Chlamy pneumoniae PCR (Not Detect) Adenovirus (PCR) (Not Detect) B.parapertussis DNA PCR (Not Detecte) Coronavirus OC43 (PCR) (Not Detect) Coronavirus HKU1 (PCR) (Not Detect) Coronavirus 229E (PCR) (Not Detect) SARS-CoV-2 (PCR) (Not Detecte) Coronavirus NL63 (PCR) (Not Detect) Human Metapneumovir PCR (Not Detect) Influenza Type A (PCR) (Not Detect) Influenza Type B (PCR) (Not Detect) M. pneumoniae (PCR) (Not Detect) Parainfluenza 1 (PCR) (Not Detect) Parainfluenza 2 (PCR) (Not Detect) Parainfluenza 3 (PCR) (Not Detect) Parainfluenza 4 (PCR) (Not Detect) RSV (PCR) (Not Detect) Entero/Rhino (PCR) (Not Detect) 08/12/23 08/12/23 08/12/23 Range/Units 06:30 06:30 06:30 WBC (4.5-11.0) X10^3/uL RBC (4.5-5.9) X10^6/uL Hgb (13.5-17.5) g/dL Hct (41-53) % MCV (80-100) fL MCH (26-34) PG MCHC (30-36) % RDW (11.6-14.8) % Plt Count (150-400) X10^3/uL Neut % (Auto) (50-75) % Lymph % (Auto) (25-40) % [place] % (Auto) (3-14) % Eos % (Auto) (2-4) % Baso % (Auto) (0-2) % Neut # (Auto) (1792-3722) /uL Lymph # (Auto) (0107-1607) /uL [place] # (Auto) (0-900) /uL Eos # (Auto) (0-450) /uL Baso # (Auto) (0-100) /uL PT (9.4-12.5) SECONDS INR (0.9-1.3) Sodium (137-145) mmol/L Potassium (3.4-5.1) mmol/L Chloride (98-107) mmol/L Carbon Dioxide (22-32) mmol/L BUN (9-20) mg/dL Creatinine (0.66-1.25) mg/dL Estimated GFR (>60) mL/min BUN/Creatinine Ratio (6-22) Glucose (80-110) mg/dL Lactate (0.7-2.1) mmol/L Calcium (8.4-10.2) mg/dL Total Bilirubin (0.2-1.3) mg/dL AST (17-59) IU/L ALT (<50) IU/L Alkaline Phosphatase (38-126) U/L Total Creatine Kinase (55-170) U/L Troponin I (0.01-0.034) ng/mL Total Protein (6.3-8.2) g/dL Albumin (3.5-5.0) g/dL Globulin (1.7-4.1) g/dL Albumin/Globulin Ratio (1.0-2.8) Lipase (23-300) U/L Procalcitonin (<0.5) ng/mL Urine Color Urine Appearance Urine pH (4.5-8.0) Ur Specific [place] (1.000-1.035) Urine Protein (Negative) Urine Glucose (UA) (Negative) g/dL Urine Ketones (NEGATIVE) Urine Occult Blood (Negative) Urine Nitrate (Negative) Urine Bilirubin Negative (NEGATIVE) Urine Urobilinogen 0.2 0.2 (0.2) E.U./dL Ur Leukocyte Esterase Negative 3+ H (NEGATIVE) Urine RBC None seen (0-5/HPF) Urine WBC (0-5/HPF) Ur Squamous Epith Cells (0-5/HPF) Urine Bacteria (None) Ur Culture Indicated? Vol Urine Centrifuged Chlamy pneumoniae PCR (Not Detect) Adenovirus (PCR) (Not Detect) B.parapertussis DNA PCR (Not Detecte) Coronavirus OC43 (PCR) (Not Detect) Coronavirus HKU1 (PCR) (Not Detect) Coronavirus 229E (PCR) (Not Detect) SARS-CoV-2 (PCR) (Not Detecte) Coronavirus NL63 (PCR) (Not Detect) Human Metapneumovir PCR (Not Detect) Influenza Type A (PCR) (Not Detect) Influenza Type B (PCR) (Not Detect) M. pneumoniae (PCR) (Not Detect) Parainfluenza 1 (PCR) (Not Detect) Parainfluenza 2 (PCR) (Not Detect) Parainfluenza 3 (PCR) (Not Detect) Parainfluenza 4 (PCR) (Not Detect) RSV (PCR) (Not Detect) Entero/Rhino (PCR) (Not Detect) 08/12/23 08/12/23 08/12/23 Range/Units 06:30 06:30 06:30 WBC (4.5-11.0) X10^3/uL RBC (4.5-5.9) X10^6/uL Hgb (13.5-17.5) g/dL Hct (41-53) % MCV (80-100) fL MCH (26-34) PG MCHC (30-36) % RDW (11.6-14.8) % Plt Count (150-400) X10^3/uL Neut % (Auto) (50-75) % Lymph % (Auto) (25-40) % [place] % (Auto) (3-14) % Eos % (Auto) (2-4) % Baso % (Auto) (0-2) % Neut # (Auto) (1499-5779) /uL Lymph # (Auto) (0690-2263) /uL [place] # (Auto) (0-900) /uL Eos # (Auto) (0-450) /uL Baso # (Auto) (0-100) /uL PT (9.4-12.5) SECONDS INR (0.9-1.3) Sodium (137-145) mmol/L Potassium (3.4-5.1) mmol/L Chloride (98-107) mmol/L Carbon Dioxide (22-32) mmol/L BUN (9-20) mg/dL Creatinine (0.66-1.25) mg/dL Estimated GFR (>60) mL/min BUN/Creatinine Ratio (6-22) Glucose (80-110) mg/dL Lactate (0.7-2.1) mmol/L Calcium (8.4-10.2) mg/dL Total Bilirubin (0.2-1.3) mg/dL AST (17-59) IU/L ALT (<50) IU/L Alkaline Phosphatase (38-126) U/L Total Creatine Kinase (55-170) U/L Troponin I (0.01-0.034) ng/mL Total Protein (6.3-8.2) g/dL Albumin (3.5-5.0) g/dL Globulin (1.7-4.1) g/dL Albumin/Globulin Ratio (1.0-2.8) Lipase (23-300) U/L Procalcitonin (<0.5) ng/mL Urine Color Urine Appearance Urine pH (4.5-8.0) Ur Specific [place] (1.000-1.035) Urine Protein (Negative) Urine Glucose (UA) (Negative) g/dL Urine Ketones (NEGATIVE) Urine Occult Blood (Negative) Urine Nitrate (Negative) Urine Bilirubin (NEGATIVE) Urine Urobilinogen (0.2) E.U./dL Ur Leukocyte Esterase (NEGATIVE) Urine RBC 1-5/hpf (0-5/HPF) Urine WBC None seen 5-10/hpf H (0-5/HPF) Ur Squamous Epith Cells None seen 1-5 /hpf (0-5/HPF) Urine Bacteria None seen (None) Ur Culture Indicated? Vol Urine Centrifuged Chlamy pneumoniae PCR (Not Detect) Adenovirus (PCR) (Not Detect) B.parapertussis DNA PCR (Not Detecte) Coronavirus OC43 (PCR) (Not Detect) Coronavirus HKU1 (PCR) (Not Detect) Coronavirus 229E (PCR) (Not Detect) SARS-CoV-2 (PCR) (Not Detecte) Coronavirus NL63 (PCR) (Not Detect) Human Metapneumovir PCR (Not Detect) Influenza Type A (PCR) (Not Detect) Influenza Type B (PCR) (Not Detect) M. pneumoniae (PCR) (Not Detect) Parainfluenza 1 (PCR) (Not Detect) Parainfluenza 2 (PCR) (Not Detect) Parainfluenza 3 (PCR) (Not Detect) Parainfluenza 4 (PCR) (Not Detect) RSV (PCR) (Not Detect) Entero/Rhino (PCR) (Not Detect) 08/12/23 08/12/23 08/12/23 Range/Units 06:30 06:30 06:30 WBC (4.5-11.0) X10^3/uL RBC (4.5-5.9) X10^6/uL Hgb (13.5-17.5) g/dL Hct (41-53) % MCV (80-100) fL MCH (26-34) PG MCHC (30-36) % RDW (11.6-14.8) % Plt Count (150-400) X10^3/uL Neut % (Auto) (50-75) % Lymph % (Auto) (25-40) % [place] % (Auto) (3-14) % Eos % (Auto) (2-4) % Baso % (Auto) (0-2) % Neut # (Auto) (5767-0509) /uL Lymph # (Auto) (9040-6761) /uL [place] # (Auto) (0-900) /uL Eos # (Auto) (0-450) /uL Baso # (Auto) (0-100) /uL PT (9.4-12.5) SECONDS INR (0.9-1.3) Sodium (137-145) mmol/L Potassium (3.4-5.1) mmol/L Chloride (98-107) mmol/L Carbon Dioxide (22-32) mmol/L BUN (9-20) mg/dL Creatinine (0.66-1.25) mg/dL Estimated GFR (>60) mL/min BUN/Creatinine Ratio (6-22) Glucose (80-110) mg/dL Lactate (0.7-2.1) mmol/L Calcium (8.4-10.2) mg/dL Total Bilirubin (0.2-1.3) mg/dL AST (17-59) IU/L ALT (<50) IU/L Alkaline Phosphatase (38-126) U/L Total Creatine Kinase (55-170) U/L Troponin I (0.01-0.034) ng/mL Total Protein (6.3-8.2) g/dL Albumin (3.5-5.0) g/dL Globulin (1.7-4.1) g/dL Albumin/Globulin Ratio (1.0-2.8) Lipase (23-300) U/L Procalcitonin (<0.5) ng/mL Urine Color Urine Appearance Urine pH (4.5-8.0) Ur Specific [place] (1.000-1.035) Urine Protein (Negative) Urine Glucose (UA) (Negative) g/dL Urine Ketones (NEGATIVE) Urine Occult Blood (Negative) Urine Nitrate (Negative) Urine Bilirubin (NEGATIVE) Urine Urobilinogen (0.2) E.U./dL Ur Leukocyte Esterase (NEGATIVE) Urine RBC (0-5/HPF) Urine WBC (0-5/HPF) Ur Squamous Epith Cells (0-5/HPF) Urine Bacteria Many (>30) H D (None) Ur Culture Indicated? Cult not indicated Specimen cultured Vol Urine Centrifuged 10ml (spun) 10ml (spun) Chlamy pneumoniae PCR (Not Detect) Adenovirus (PCR) (Not Detect) B.parapertussis DNA PCR (Not Detecte) Coronavirus OC43 (PCR) (Not Detect) Coronavirus HKU1 (PCR) (Not Detect) Coronavirus 229E (PCR) (Not Detect) SARS-CoV-2 (PCR) (Not Detecte) Coronavirus NL63 (PCR) (Not Detect) Human Metapneumovir PCR (Not Detect) Influenza Type A (PCR) (Not Detect) Influenza Type B (PCR) (Not Detect) M. pneumoniae (PCR) (Not Detect) Parainfluenza 1 (PCR) (Not Detect) Parainfluenza 2 (PCR) (Not Detect) Parainfluenza 3 (PCR) (Not Detect) Parainfluenza 4 (PCR) (Not Detect) RSV (PCR) (Not Detect) Entero/Rhino (PCR) (Not Detect) 08/12/23 08/12/23 08/12/23 Range/Units 07:58 10:12 12:18 WBC (4.5-11.0) X10^3/uL RBC (4.5-5.9) X10^6/uL Hgb (13.5-17.5) g/dL Hct (41-53) % MCV (80-100) fL MCH (26-34) PG MCHC (30-36) % RDW (11.6-14.8) % Plt Count (150-400) X10^3/uL Neut % (Auto) (50-75) % Lymph % (Auto) (25-40) % [place] % (Auto) (3-14) % Eos % (Auto) (2-4) % Baso % (Auto) (0-2) % Neut # (Auto) (7688-5671) /uL Lymph # (Auto) (0361-1005) /uL [place] # (Auto) (0-900) /uL Eos # (Auto) (0-450) /uL Baso # (Auto) (0-100) /uL PT (9.4-12.5) SECONDS INR (0.9-1.3) Sodium (137-145) mmol/L Potassium (3.4-5.1) mmol/L Chloride (98-107) mmol/L Carbon Dioxide (22-32) mmol/L BUN (9-20) mg/dL Creatinine (0.66-1.25) mg/dL Estimated GFR (>60) mL/min BUN/Creatinine Ratio (6-22) Glucose (80-110) mg/dL Lactate 3.0 H 2.3 H 2.6 H (0.7-2.1) mmol/L Calcium (8.4-10.2) mg/dL Total Bilirubin (0.2-1.3) mg/dL AST (17-59) IU/L ALT (<50) IU/L Alkaline Phosphatase (38-126) U/L Total Creatine Kinase (55-170) U/L Troponin I (0.01-0.034) ng/mL Total Protein (6.3-8.2) g/dL Albumin (3.5-5.0) g/dL Globulin (1.7-4.1) g/dL Albumin/Globulin Ratio (1.0-2.8) Lipase (23-300) U/L Procalcitonin (<0.5) ng/mL Urine Color Urine Appearance Urine pH (4.5-8.0) Ur Specific [place] (1.000-1.035) Urine Protein (Negative) Urine Glucose (UA) (Negative) g/dL Urine Ketones (NEGATIVE) Urine Occult Blood (Negative) Urine Nitrate (Negative) Urine Bilirubin (NEGATIVE) Urine Urobilinogen (0.2) E.U./dL Ur Leukocyte Esterase (NEGATIVE) Urine RBC (0-5/HPF) Urine WBC (0-5/HPF) Ur Squamous Epith Cells (0-5/HPF) Urine Bacteria (None) Ur Culture Indicated? Vol Urine Centrifuged Chlamy pneumoniae PCR (Not Detect) Adenovirus (PCR) (Not Detect) B.parapertussis DNA PCR (Not Detecte) Coronavirus OC43 (PCR) (Not Detect) Coronavirus HKU1 (PCR) (Not Detect) Coronavirus 229E (PCR) (Not Detect) SARS-CoV-2 (PCR) (Not Detecte) Coronavirus NL63 (PCR) (Not Detect) Human Metapneumovir PCR (Not Detect) Influenza Type A (PCR) (Not Detect) Influenza Type B (PCR) (Not Detect) M. pneumoniae (PCR) (Not Detect) Parainfluenza 1 (PCR) (Not Detect) Parainfluenza 2 (PCR) (Not Detect) Parainfluenza 3 (PCR) (Not Detect) Parainfluenza 4 (PCR) (Not Detect) RSV (PCR) (Not Detect) Entero/Rhino (PCR) (Not Detect) 08/12/23 08/12/23 Range/Units 14:18 16:15 WBC (4.5-11.0) X10^3/uL RBC (4.5-5.9) X10^6/uL Hgb (13.5-17.5) g/dL Hct (41-53) % MCV (80-100) fL MCH (26-34) PG MCHC (30-36) % RDW (11.6-14.8) % Plt Count (150-400) X10^3/uL Neut % (Auto) (50-75) % Lymph % (Auto) (25-40) % [place] % (Auto) (3-14) % Eos % (Auto) (2-4) % Baso % (Auto) (0-2) % Neut # (Auto) (2036-7255) /uL Lymph # (Auto) (1010-3925) /uL [place] # (Auto) (0-900) /uL Eos # (Auto) (0-450) /uL Baso # (Auto) (0-100) /uL PT (9.4-12.5) SECONDS INR (0.9-1.3) Sodium (137-145) mmol/L Potassium (3.4-5.1) mmol/L Chloride (98-107) mmol/L Carbon Dioxide (22-32) mmol/L BUN (9-20) mg/dL Creatinine (0.66-1.25) mg/dL Estimated GFR (>60) mL/min BUN/Creatinine Ratio (6-22) Glucose (80-110) mg/dL Lactate 2.1 1.7 (0.7-2.1) mmol/L Calcium (8.4-10.2) mg/dL Total Bilirubin (0.2-1.3) mg/dL AST (17-59) IU/L ALT (<50) IU/L Alkaline Phosphatase (38-126) U/L Total Creatine Kinase (55-170) U/L Troponin I (0.01-0.034) ng/mL Total Protein (6.3-8.2) g/dL Albumin (3.5-5.0) g/dL Globulin (1.7-4.1) g/dL Albumin/Globulin Ratio (1.0-2.8) Lipase (23-300) U/L Procalcitonin (<0.5) ng/mL Urine Color Urine Appearance Urine pH (4.5-8.0) Ur Specific [place] (1.000-1.035) Urine Protein (Negative) Urine Glucose (UA) (Negative) g/dL Urine Ketones (NEGATIVE) Urine Occult Blood (Negative) Urine Nitrate (Negative) Urine Bilirubin (NEGATIVE) Urine Urobilinogen (0.2) E.U./dL Ur Leukocyte Esterase (NEGATIVE) Urine RBC (0-5/HPF) Urine WBC (0-5/HPF) Ur Squamous Epith Cells (0-5/HPF) Urine Bacteria (None) Ur Culture Indicated? Vol Urine Centrifuged Chlamy pneumoniae PCR (Not Detect) Adenovirus (PCR) (Not Detect) B.parapertussis DNA PCR (Not Detecte) Coronavirus OC43 (PCR) (Not Detect) Coronavirus HKU1 (PCR) (Not Detect) Coronavirus 229E (PCR) (Not Detect) SARS-CoV-2 (PCR) (Not Detecte) Coronavirus NL63 (PCR) (Not Detect) Human Metapneumovir PCR (Not Detect) Influenza Type A (PCR) (Not Detect) Influenza Type B (PCR) (Not Detect) M. pneumoniae (PCR) (Not Detect) Parainfluenza 1 (PCR) (Not Detect) Parainfluenza 2 (PCR) (Not Detect) Parainfluenza 3 (PCR) (Not Detect) Parainfluenza 4 (PCR) (Not Detect) RSV (PCR) (Not Detect) Entero/Rhino (PCR) (Not Detect) Point of care testing: Point of Care Testing Glucose POC [address] scan - abdomen/pelvis: Radiologist's Impression: PROCEDURE: CT ABDOMEN PELVIS W CON INDICATIONS: MIDEPIGASTRIC PAIN, N/V TECHNIQUE: After the administration of intravenous contrast, axial sections acquired from the lung bases to the pubic symphysis. Coronal and sagittal reformats were performed. For radiation dose reduction, the following was used: automated exposure control, adjustment of mA and/or kV according to patient size. COMPARISON: [facility], CT, CT CHEST ABDOMEN PELVIS WITH CONTRAST, 05/18/2023, 11:54. [facility], CT, CT ABDOMEN PELVIS W CON, 11/25/2020, 11:40. FINDINGS: Image quality: Diagnostic. Lower Chest: Left basilar consolidation. Cardiomegaly. ABDOMEN: Liver: No solid mass. Gallbladder: No radiopaque gallstones or wall thickening. Biliary ducts: No biliary dilation. Pancreas: No ductal dilation. Spleen: Enlarged. Adrenal Glands: No adrenal nodules. Kidneys and Ureters: Right-sided percutaneous nephrostomy tube; the tip terminates in the very distal collecting system. Moderate right-sided hydronephrosis. Stomach and Bowel: Normal colonic caliber, without significant wall thickening. Colonic diverticulosis without evidence of diverticulitis. Fecal debris within the small bowel. Peritoneum: No abnormal intraperitoneal fluid. No free air. Ventral Wall: No significant ventral hernia. Abdominal Nodes: Retroperitoneal adenopathy. For instance, the 1.8 centimeter aortocaval node (series 2, image 45), grossly unchanged from prior. Vessels: Aorta and inferior vena cava are normal in size. PELVIS: Pelvic Organs: Fiducial markers within the prostate. Bladder: No bladder wall thickening, accounting for underdistention. Pelvic Nodes: Right pelvic sidewall mass causes obstruction of the distal right ureter. The mass measures 5.8 x 4.3 centimeters, previously 6.4 x 5.3 centimeters Miscellaneous: No inguinal hernias are seen. Bones: No aggressive osseous abnormality. Stable compression deformity of the L2 vertebral body. IMPRESSION: Left lower lobe consolidation, concerning for pneumonia. Recommend follow-up in 1-2 months with chest x-ray to ensure resolution. Moderate right-sided hydroureter and hydronephrosis. The right-sided percutaneous nephrostomy tube has been slightly retracted. Recommend repositioning. Interval decrease in size of the retroperitoneal and pelvic adenopathy. Dictated by: Ramone Anne M.D. on 08/12/2023 at 8:14 Chest x-ray: Radiologist's Impression: PROCEDURE: XR CHEST 1V INDICATIONS: N/V/MIDEPIGASTRIC PAIN TECHNIQUE: One view of the chest was acquired. COMPARISON: [facility], CT, CT ABDOMEN PELVIS W CON, 08/12/2023, 6:36. [facility], CT, CT CHEST ABDOMEN PELVIS WITH CONTRAST, 05/18/2023, 11:54. [facility], CR, XR CHEST 1V, 02/04/2023, 7:47. FINDINGS: Surgical changes and devices: There is a cardiac pacemaker. Lungs and pleura: Small left pleural effusion. There is left basilar infiltrate consistent with pneumonia. No pleural effusions or pneumothorax. Mediastinum: Mediastinal contours appear normal. Heart size is normal. Bones and chest wall: No suspicious bony lesions. Overlying soft tissues appear unremarkable. IMPRESSION: Left basilar pneumonia. Dictated by: Patricia Page M.D. on 08/12/2023 at 9:06 Approved by: Patricia Page M.D. on 08/12/2023 at 9:07 [facility] Narrative Medical decision making narrative: Chronically unwell appearing patient presenting with nausea, vomiting, midepigastric abdominal pain. Abdomen is soft but he was tender in the midepigastric regions. Vital signs notable for oxygen saturation 91% on room air, patient denying shortness of breath or chest pain. Nausea improved with Zofran given prior to arrival. Given patient's low oxygen saturation as well as history of congestive heart failure will not give fluids at this time. Labs, CT imaging ordered. Shortly after arrival patient's temperature measured at 100.2 F. initial labs concerning for WBC count 16.2 with high neutrophil predominance. Blood cultures, lactic acid, procalcitonin added to lab work, empiric Rocephin ordered based on patient's previous culture history. Pending x-ray, CT imaging, additional laboratory work. Care of patient is signed out to Dr. Gutiérrez at [id number] Botnick Patient signed out to me by Dr. Johnson and see and evaluated patient myself. He is sitting in bed overall appears well and non toxic. Abdomen is soft and nontender. Urine has positive nitrates from the nephrostomy tube. He has frequently had UTIs in the past. He had low-grade temperature of 100.2? on arrival with leukocytosis of 16.2. He was given Rocephin based on previous cultures from June of 2023. He did have some lower oxygen levels but he denies any cough or shortness of breath. X-ray does show multifocal left lower lobe infiltrate and a left pleural effusion. He reports that he has previously had pneumonia he thinks it is possible he could have it again but really denies any of the symptoms. Patient reports that nephrostomy tube initially was placed in [place]. According to CT nephrostomy tube appears malpositioned. 0900Discussed case with on-call Urology Dr. Barker, recommends that patient be transferred so that interventional radiology can replace the nephrostomy tube he does not get further septic. Ertapenem is added to patient's antibiotic Rocephin and azithromycin he has previously had ESBL UTI. 1600 Micaela Ramírez accepts at [facility] waiting for bed signed out to DR. johnson. 1999 - Informed by [facility] that they could not accept the patient unless able to be placed on the IR schedule for replacement. Informed by IR department that it could be days before there was room in the schedule for this patient. While awaiting tranfer to [facility] will admit patient here for further antibiotics and treatment. Discharge Plan Departure Patient Disposition: Admitted As Inpatient Clinical Impression: Sepsis, Vomiting, Pneumonia, Acute UTI, Displacement of nephrostomy tube Admit Date/Time: 08/12/23 23:40 Admit Provider: Dk Cantor
[2023-08-12 05:56] LABS: Add Manual Diff / Slide Review NO; Basophils Absolute Auto 100 /uL (0-100); Basophils Percent Auto 0.5 % (0-2); Eosinophils Absolute Auto 100 /uL (0-450); Eosinophils Percent Auto 0.7 % (2-4); Hematocrit 34.9 % (41-53); Hemoglobin 11.6 g/dL (13.5-17.5); Lymphocytes Absolute Auto 700 /uL (1100-4500); Lymphocytes Percent Auto 4.1 % (25-40); Mean Corpuscular HGB Conc 33.3 % (30-36); Mean Corpuscular Hemoglobin 28.5 PG (26-34); Mean Corpuscular Volume 85.6 fL (80-100); Monocytes Absolute Auto 600 /uL (0-900); Neutrophils Absolute Auto 14700 /uL (1500-7000); Neutrophils Percent Auto 90.7 % (50-75); Platelet Count 190 X10^3/uL (150-400); Red Blood Cell Count 4.08 X10^6/uL (4.5-5.9); Red Cell Distribution Width 17.9 % (11.6-14.8); White Blood Cell Count 16.2 X10^3/uL (4.5-11.0)
[2023-08-12 06:08] LABS: INR 1.6 (0.9-1.3); Prothrombin Time 18.8 SECONDS (9.4-12.5)
[2023-08-12 06:24] LABS: Lactate (Lactic Acid) 3.3 mmol/L (0.7-2.1)
[2023-08-12 06:25] LABS: Alanine Aminotransferase 14 IU/L (<50); Albumin 3.9 g/dL (3.5-5.0); Albumin Globulin Ratio 1.3 (1.0-2.8); Alkaline Phosphatase 91 U/L (38-126); Aspartate Aminotransferase 20 IU/L (17-59); BUN Creatinine Ratio 14.9 (6-22); Bilirubin Total 0.7 mg/dL (0.2-1.3); Blood Urea Nitrogen 25 mg/dL (9-20); Calcium 8.7 mg/dL (8.4-10.2); Carbon Dioxide 21 mmol/L (22-32); Chloride 104 mmol/L (98-107); Estimated Glomerular Filt Rate 42 mL/min (>60); Globulin 3.1 g/dL (1.7-4.1); Glucose 217 mg/dL (80-110); HEMOLYSIS 27 (0-50); Lipase 59 U/L (23-300); Potassium 4.1 mmol/L (3.4-5.1); Sodium 137 mmol/L (137-145)
[2023-08-12 06:43] LABS: Adenovirus Not Detected (Not Detect); B. parapertussis Not Detected (Not Detecte); Bordetella pertussis Not Detected (Not Detect); Chlamydophila pneumoniae Not Detected (Not Detect); Coronavirus 229E Not Detected (Not Detect); Coronavirus HKU1 Not Detected (Not Detect); Coronavirus NL 63 Not Detected (Not Detect); Coronavirus OC43 Not Detected (Not Detect); Human Metapneumovirus Not Detected (Not Detect); Human Rhinovirus/Enterovirus Not Detected (Not Detect); Influenza A Not Detected (Not Detect); Influenza B Not Detected (Not Detect); Mycoplasma pneumoniae Not Detected (Not Detect); Parainfluenza Virus 1 Not Detected (Not Detect); Parainfluenza Virus 2 Not Detected (Not Detect); Parainfluenza Virus 3 Not Detected (Not Detect); Parainfluenza Virus 4 Not Detected (Not Detect); Respiratory Syncytial Virus Not Detected (Not Detect); SARS- CoV-2 Not Detected (Not Detecte)
[2023-08-12 06:44] LABS: Troponin I < 0.012 ng/mL (0.01-0.034)
[2023-08-12 06:46] LABS: Procalcitonin 0.18 ng/mL (<0.5)
[2023-08-12] MEDS: cefTRIAXone 2,000 MG in SODIUM CHLORIDE 0.9% 100 ML 200 MG IV (06:54)
[2023-08-12 07:04] LABS: Appearance Urine UA CLEAR; Bilirubin Urine UA NEGATIVE (NEGATIVE); Color Urine UA YELLOW; Glucose Urine UA NEGATIVE (Negative); Ketones Urine UA NEGATIVE (NEGATIVE); Leukocyte Esterase Urine UA NEGATIVE (NEGATIVE); Nitrite Urine UA NEGATIVE (Negative); Occult Blood Urine UA NEGATIVE (Negative); Protein Urine UA NEGATIVE (Negative); Urobilinogen Urine UA 0.2 E.U./dL (0.2)
[2023-08-12 07:05] LABS: Creatine Kinase 31 U/L (55-170)
[2023-08-12 07:06] LABS: Appearance Urine UA SL CLOUDY; Bilirubin Urine UA NEGATIVE (NEGATIVE); Color Urine UA YELLOW; Glucose Urine UA 1+ g/dL (Negative); Ketones Urine UA NEGATIVE (NEGATIVE); Leukocyte Esterase Urine UA 3+ (NEGATIVE); Nitrite Urine UA POSITIVE (Negative); Occult Blood Urine UA 2+ (Negative); Protein Urine UA 1+ (Negative); Urobilinogen Urine UA 0.2 E.U./dL (0.2); pH Urine UA 6.5 (4.5-8.0)
[2023-08-12 07:09] LABS: Urine Volume 10mL (spun)
[2023-08-12 07:12] LABS: Bacteria Urine None Seen; Culture Indicated Urine Cult Not Indicated; RBC Urine None Seen (0-5/HPF); Squamous Epithelial Cell Urine None Seen (0-5/HPF); WBC Urine None Seen (0-5/HPF)
[2023-08-12 07:13] LABS: Bacteria Urine Many (>30); Culture Indicated Urine Specimen Cultured; RBC Urine 1-5/HPF (0-5/HPF); Squamous Epithelial Cell Urine 1-5 /HPF (0-5/HPF); Urine Volume 10mL (spun); WBC Urine 5-10/HPF (0-5/HPF)
[2023-08-12 07:47] LABS: Reflexed Lactate in 2 Hours Y
[2023-08-12] MEDS: ERTAPENEM 1 GM in SODIUM CHLORIDE 0.9% 100 ML IV (08:15)
[2023-08-12] MEDS: AZITHROMYCIN 500 MG in DEXTROSE 5% IN WATER 250 ML 250 MG IV (08:56)
--- NOTE | 2023-08-12 10:33 | PC.NURSE ---
Addendum entered by Chayito Billings CNA 08/12/23 20:39: 2000 hospitalist will not accept until they can schedule the IR procedure, they do not have any openings for 08/13. hoping to schedule on 08/14. Addendum entered by Lindsey Arreola CNA 08/12/23 18:29: 1505- [facility], called for update, patient still on wait list, transfer station requested physician note and labs Addendum entered by Lindsey Arreola CNA 08/12/23 11:50: 1140- Gloria Menendez, update, patient taken off the wait list due to kidney tube not being placed there Original Note: Hospital call list for patient transfer [id number]- Jose Raul, spoke with Jessika, patient on wait list [id number]- [facility], spoke with Mary, patient on wait list [id number]- Gloria Menendez, spoke with Lashanda, patient on wait list
[2023-08-12 10:46] LABS: Lactate (Lactic Acid) 2.3 mmol/L (0.7-2.1)
[2023-08-12 12:10] LABS: Reflexed Lactate in 2 Hours Y
[2023-08-12 12:40] LABS: Lactate 2HR (Lactic Acid Rflx) 2.6 mmol/L (0.7-2.1)
[2023-08-12] MEDS: SODIUM CHLORIDE 0.9% 1,000 ML 125 ML IV (14:03)
[2023-08-12 14:48] LABS: Lactate (Lactic Acid) 2.1 mmol/L (0.7-2.1)
[2023-08-12 16:01] LABS: Reflexed Lactate in 2 Hours Y
--- NOTE | 2023-08-12 16:14 | PC.NURSE ---
this RN spoke with Mary at [facility] who reports that IR cannot perform the procedure tomorrow so they cannot take him at this time. they report that tomorrow they will check and see if IR can perform the procedure on 08/14. Dr. Gutiérrez and primary RN aware.
[2023-08-12 16:32] LABS: Lactate 2HR (Lactic Acid Rflx) 1.7 mmol/L (0.7-2.1)
[2023-08-12] MEDS: HYDROCODONE/ACET 5/325 TABLET 2 TAB PO (18:36)
[2023-08-12] MEDS: ONDANSETRON 4 MG/2 ML INJ IV (19:48)
[2023-08-13] VITALS (9 sets, daily range): BP systolic 123–148; BP diastolic 49–67; PULSE 60–66; RESP 16–20; TEMP 35.9–36.4; O2SAT 94–97; BMI 33.5
[2023-08-13] MEDS: SODIUM CHLORIDE 0.9% 1,000 ML 125 ML IV (02:27)
[2023-08-13] MEDS: ACETAMINOPHEN 325 MG TABLET 650 MG PO (03:12)
[2023-08-13] MEDS: OXYCODONE IR 5 MG TABLET PO ×2 (03:12→20:47)
[2023-08-13] MEDS: HYDROCODONE/ACET 5/325 TABLET 1 TAB PO (03:12)
--- NOTE | 2023-08-13 03:27 | PM.HP.1 ---
History of Present Illness History of Present Illness Date Patient Seen: 08/13/23 Time Patient Seen: 02:15 Chief complaint: new onset vomiting Narrative: 73 years old male with a past medical history of prostate cancer with right retroperitoneal mass status post right nephrostomy tube, ESBL UTI, hypertension, coronary artery disease, chronic respiratory failure, atrial fibrillation status post AICD on warfarin, aortic stenosis status post TAVR, diabetes mellitus type 2, GERD and multiple other medical issues was brought in from assisted facility for abdominal pain with nausea and vomiting. He woke up around 2 AM yesterday with nausea and vomiting and abdominal discomfort. Subsequent workup in the ED revealed a white count of 16.2 with a hemoglobin of 11.6. Viral screen was negative. Urine was positive for many bacteria. Lactic acid was 3.0 chest x-ray shows multifocal left lower lobe infiltrate in the left pleural effusion and a CT abdomen showed possible malpositioning of the nephrostomy tube. Patient was given IV ertapenem in addition to Rocephin given the history of ESBL UTI in addition to IV fluids while in the renal function/lactic acidosis monitor. His care was discussed with Dr. Barker on-call urology at [facility]. Patient was accepted for transfer but due to lack of immediate bed availability, patient has been admitted to the medical floor pending transfer. Currently does complain of abdominal discomfort but slightly better than yesterday and nephrostomy tube is draining urine. COUNT INCLUDES THE [facility] Medical History DVT (deep venous thrombosis) History of left heart catheterization (12/2019) Atrial fibrillation Paroxysmal A-fib RBBB LAFB (left anterior fascicular block) First degree AV block History of transcatheter aortic valve replacement (TAVR) (08/01/18) Sleep apnea CAD (coronary artery disease) Stress incontinence Enlarged lymph node Chronic anticoagulation Androgen deprivation therapy Stress incontinence, male History of radiation therapy Hydronephrosis, right Prostate cancer Osteoarthritis Hypertension Gout Depression History of prostate cancer Arthritis GERD (gastroesophageal reflux disease) Diabetes Congestive heart failure Pacemaker Surgical History AICD (automatic cardioverter/defibrillator) present (12/30/20) Hx of heart artery stent History of back surgery H/O aortic valve replacement Family History Mother Coronary artery disease involving bypass graft of transplanted heart Cancer Hypertension Social History marital status: number of children: 3 household members: none Previous occupational history: retired Smoking Status: Former smoker alcohol intake: never caffeine: Yes Meds Home Medications and Allergies Home Medications Medication Instructions Recorded Confirmed Type acetaminophen 325 mg tablet 650 mg PO Q4H PRN pain 06/13/22 08/12/23 History atorvastatin 40 mg tablet 40 mg PO BEDTIME 06/13/22 08/12/23 History calcium carbonate 215 mg calcium 500 mg DAILY 06/13/22 08/12/23 History (500 mg) chewable tablet (Antacid (calcium carbonate)) ferrous sulfate 325 mg (65 mg 325 mg PO DAILY 06/13/22 08/12/23 History iron) tablet furosemide 40 mg tablet 40 mg PO DAILY 06/13/22 08/12/23 History gabapentin 300 mg tablet 600 mg PO BID 06/13/22 08/12/23 History insulin glargine 100 unit/mL 10 unit SUBCUT QPM 06/13/22 08/12/23 History subcutaneous cartridge insulin lispro 100 unit/mL 1 sliding scale dose SUBCUT 06/13/22 08/12/23 History subcutaneous cartridge USEASDIRECTD lisinopril 2.5 mg tablet 2.5 mg PO DAILY 06/13/22 08/12/23 History metoprolol succinate 25 mg 12.5 mg PO DAILY 06/13/22 08/12/23 History tablet,extended release 24 hr pantoprazole 40 mg tablet,delayed 40 mg PO DAILY 06/13/22 08/12/23 History release (Protonix) pramipexole 0.5 mg tablet (Mirapex) 0.5 mg PO DAILY 06/13/22 08/12/23 History ropinirole 1 mg tablet 2 mg PO BID 06/13/22 08/12/23 History sertraline 50 mg tablet (Zoloft) 50 mg PO DAILY 06/13/22 08/12/23 History tolterodine 4 mg capsule,extended 4 mg PO DAILY 06/13/22 08/12/23 History release 24 hr (Detrol LA) hydroxyzine pamoate 25 mg capsule 25 mg PO PRN PRN Sleep 08/03/22 08/12/23 History (Vistaril) hydrocodone 5 mg-acetaminophen 325 2 tab PO Q6H PRN pain #30 tabs 10/18/22 08/12/23 Rx mg tablet bicalutamide 50 mg tablet 50 mg PO DAILY 12/14/22 08/12/23 History ondansetron 4 mg disintegrating 8 mg PO Q6H PRN Nausea 12/14/22 08/12/23 History tablet ropinirole 2 mg tablet 2 mg PO BEDTIME 12/14/22 02/05/23 History spironolactone 25 mg tablet 25 mg PO BID 12/14/22 08/12/23 History sennosides 8.6 mg tablet (senna) 17.2 mg PO BEDTIME PRN Constipation 08/12/23 08/12/23 History Allergies Allergy/AdvReac Type Severity Reaction Status Date / Time crab Allergy Severe Deathly Verified 02/05/23 10:58 sick aspartame Allergy Unknown Verified 02/05/23 10:58 carbidopa Allergy Hallucinations, Verified 02/05/23 10:58 anxiety morphine AdvReac Nausea/vomi Verified 02/05/23 10:58 ting Review of Systems Review of Systems Narrative: A 12 point review of system is negative unless otherwise stated in the history of present illness Exam Vital Signs (past 8 hours): - 08/12/23 19:41 08/12/23 19:42 08/12/23 19:42 Temperature Pulse Rate 51 L 69 Respiratory Rate Blood Pressure 152/64 H Pulse Oximetry 95 93 Oxygen Delivery Method Oxygen Flow Rate 08/12/23 20:00 08/12/23 20:00 08/12/23 20:30 Temperature Pulse Rate 67 Respiratory Rate Blood Pressure 123/58 L 129/59 L Pulse Oximetry 92 Oxygen Delivery Method Oxygen Flow Rate 08/12/23 20:30 08/12/23 21:00 08/12/23 21:01 Temperature Pulse Rate 65 61 61 Respiratory Rate 18 15 15 Blood Pressure Pulse Oximetry 90 L 92 93 Oxygen Delivery Method Oxygen Flow Rate 08/12/23 21:01 08/12/23 21:30 08/12/23 21:30 Temperature Pulse Rate 62 Respiratory Rate 14 Blood Pressure 100/52 L 124/58 L Pulse Oximetry 94 Oxygen Delivery Method Oxygen Flow Rate 08/12/23 22:00 08/12/23 22:00 08/12/23 22:30 Temperature Pulse Rate 63 Respiratory Rate 14 Blood Pressure 128/56 L 124/57 L Pulse Oximetry 95 Oxygen Delivery Method Oxygen Flow Rate 08/12/23 22:30 08/12/23 23:00 08/12/23 23:00 Temperature Pulse Rate 60 60 Respiratory Rate 13 13 Blood Pressure 135/62 Pulse Oximetry 94 95 Oxygen Delivery Method Oxygen Flow Rate 08/12/23 23:30 08/12/23 23:30 08/13/23 00:00 Temperature Pulse Rate 60 61 Respiratory Rate 15 16 Blood Pressure 108/55 L Pulse Oximetry 95 96 Oxygen Delivery Method Oxygen Flow Rate 08/13/23 00:01 08/13/23 00:01 08/13/23 00:29 Temperature 97.5 F L Pulse Rate 62 62 Respiratory Rate 16 17 Blood Pressure 130/62 143/58 H Pulse Oximetry 96 95 Oxygen Delivery Method Room Air Oxygen Flow Rate 0 08/13/23 00:30 Temperature Pulse Rate Respiratory Rate Blood Pressure Pulse Oximetry Oxygen Delivery Method Room Air Oxygen Flow Rate Oxygen Delivery Method Room Air Oxygen Flow Rate 0 Narrative Exam Narrative: Air entry slightly decreased at the left midlung region and at the left base Abdominal soft, minimal tenderness in the left flank Objective Labs 08/12/23 05:47 08/12/23 05:47 Labs: Laboratory Results - last 24 hr 08/12/23 08/12/23 08/12/23 05:45 05:47 06:30 WBC 16.2 H RBC 4.08 L Hgb 11.6 L Hct 34.9 L MCV 85.6 MCH 28.5 MCHC 33.3 RDW 17.9 H Plt Count 190 Neut % (Auto) 90.7 H Lymph % (Auto) 4.1 L [place] % (Auto) 4.0 Eos % (Auto) 0.7 L Baso % (Auto) 0.5 Neut # (Auto) 68564 H Lymph # (Auto) 700 L [place] # (Auto) 600 Eos # (Auto) 100 Baso # (Auto) 100 PT 18.8 H INR 1.6 H Sodium 137 Potassium 4.1 Chloride 104 Carbon Dioxide 21 L BUN 25 H Creatinine 1.68 H Estimated GFR 42 L BUN/Creatinine Ratio 14.9 Glucose 217 H Lactate 3.3 H Calcium 8.7 Total Bilirubin 0.7 AST 20 ALT 14 Alkaline Phosphatase 91 Total Creatine Kinase 31 L Troponin I < 0.012 Total Protein 7.0 Albumin 3.9 Globulin 3.1 Albumin/Globulin Ratio 1.3 Lipase 59 Procalcitonin 0.18 Urine Color Yellow Urine Appearance Urine pH Ur Specific [place] Urine Protein Urine Glucose (UA) Urine Ketones Urine Occult Blood Urine Nitrate Urine Bilirubin Urine Urobilinogen Ur Leukocyte Esterase Urine RBC Urine WBC Ur Squamous Epith Cells Urine Bacteria Ur Culture Indicated? Vol Urine Centrifuged Chlamy pneumoniae PCR Not detected Adenovirus (PCR) Not detected B.parapertussis DNA PCR Not detected Coronavirus OC43 (PCR) Not detected Coronavirus HKU1 (PCR) Not detected Coronavirus 229E (PCR) Not detected SARS-CoV-2 (PCR) Not detected Coronavirus NL63 (PCR) Not detected Human Metapneumovir PCR Not detected Influenza Type A (PCR) Not detected Influenza Type B (PCR) Not detected M. pneumoniae (PCR) Not detected Parainfluenza 1 (PCR) Not detected Parainfluenza 2 (PCR) Not detected Parainfluenza 3 (PCR) Not detected Parainfluenza 4 (PCR) Not detected RSV (PCR) Not detected Entero/Rhino (PCR) Not detected 08/12/23 08/12/23 08/12/23 06:30 06:30 06:30 WBC RBC Hgb Hct MCV MCH MCHC RDW Plt Count Neut % (Auto) Lymph % (Auto) [place] % (Auto) Eos % (Auto) Baso % (Auto) Neut # (Auto) Lymph # (Auto) [place] # (Auto) Eos # (Auto) Baso # (Auto) PT INR Sodium Potassium Chloride Carbon Dioxide BUN Creatinine Estimated GFR BUN/Creatinine Ratio Glucose Lactate Calcium Total Bilirubin AST ALT Alkaline Phosphatase Total Creatine Kinase Troponin I Total Protein Albumin Globulin Albumin/Globulin Ratio Lipase Procalcitonin Urine Color Yellow Urine Appearance Clear Sl cloudy Urine pH 5.0 6.5 Ur Specific [place] 1.020 Urine Protein Urine Glucose (UA) Urine Ketones Urine Occult Blood Urine Nitrate Urine Bilirubin Urine Urobilinogen Ur Leukocyte Esterase Urine RBC Urine WBC Ur Squamous Epith Cells Urine Bacteria Ur Culture Indicated? Vol Urine Centrifuged Chlamy pneumoniae PCR Adenovirus (PCR) B.parapertussis DNA PCR Coronavirus OC43 (PCR) Coronavirus HKU1 (PCR) Coronavirus 229E (PCR) SARS-CoV-2 (PCR) Coronavirus NL63 (PCR) Human Metapneumovir PCR Influenza Type A (PCR) Influenza Type B (PCR) M. pneumoniae (PCR) Parainfluenza 1 (PCR) Parainfluenza 2 (PCR) Parainfluenza 3 (PCR) Parainfluenza 4 (PCR) RSV (PCR) Entero/Rhino (PCR) 08/12/23 08/12/23 08/12/23 06:30 06:30 06:30 WBC RBC Hgb Hct MCV MCH MCHC RDW Plt Count Neut % (Auto) Lymph % (Auto) [place] % (Auto) Eos % (Auto) Baso % (Auto) Neut # (Auto) Lymph # (Auto) [place] # (Auto) Eos # (Auto) Baso # (Auto) PT INR Sodium Potassium Chloride Carbon Dioxide BUN Creatinine Estimated GFR BUN/Creatinine Ratio Glucose Lactate Calcium Total Bilirubin AST ALT Alkaline Phosphatase Total Creatine Kinase Troponin I Total Protein Albumin Globulin Albumin/Globulin Ratio Lipase Procalcitonin Urine Color Urine Appearance Urine pH Ur Specific [place] 1.010 Urine Protein Negative 1+ H Urine Glucose (UA) Negative 1+ H Urine Ketones Negative Urine Occult Blood Urine Nitrate Urine Bilirubin Urine Urobilinogen Ur Leukocyte Esterase Urine RBC Urine WBC Ur Squamous Epith Cells Urine Bacteria Ur Culture Indicated? Vol Urine Centrifuged Chlamy pneumoniae PCR Adenovirus (PCR) B.parapertussis DNA PCR Coronavirus OC43 (PCR) Coronavirus HKU1 (PCR) Coronavirus 229E (PCR) SARS-CoV-2 (PCR) Coronavirus NL63 (PCR) Human Metapneumovir PCR Influenza Type A (PCR) Influenza Type B (PCR) M. pneumoniae (PCR) Parainfluenza 1 (PCR) Parainfluenza 2 (PCR) Parainfluenza 3 (PCR) Parainfluenza 4 (PCR) RSV (PCR) Entero/Rhino (PCR) 08/12/23 08/12/23 08/12/23 06:30 06:30 06:30 WBC RBC Hgb Hct MCV MCH MCHC RDW Plt Count Neut % (Auto) Lymph % (Auto) [place] % (Auto) Eos % (Auto) Baso % (Auto) Neut # (Auto) Lymph # (Auto) [place] # (Auto) Eos # (Auto) Baso # (Auto) PT INR Sodium Potassium Chloride Carbon Dioxide BUN Creatinine Estimated GFR BUN/Creatinine Ratio Glucose Lactate Calcium Total Bilirubin AST ALT Alkaline Phosphatase Total Creatine Kinase Troponin I Total Protein Albumin Globulin Albumin/Globulin Ratio Lipase Procalcitonin Urine Color Urine Appearance Urine pH Ur Specific [place] Urine Protein Urine Glucose (UA) Urine Ketones Negative Urine Occult Blood Negative 2+ H Urine Nitrate Negative Positive H Urine Bilirubin Negative Urine Urobilinogen Ur Leukocyte Esterase Urine RBC Urine WBC Ur Squamous Epith Cells Urine Bacteria Ur Culture Indicated? Vol Urine Centrifuged Chlamy pneumoniae PCR Adenovirus (PCR) B.parapertussis DNA PCR Coronavirus OC43 (PCR) Coronavirus HKU1 (PCR) Coronavirus 229E (PCR) SARS-CoV-2 (PCR) Coronavirus NL63 (PCR) Human Metapneumovir PCR Influenza Type A (PCR) Influenza Type B (PCR) M. pneumoniae (PCR) Parainfluenza 1 (PCR) Parainfluenza 2 (PCR) Parainfluenza 3 (PCR) Parainfluenza 4 (PCR) RSV (PCR) Entero/Rhino (PCR) 08/12/23 08/12/23 08/12/23 06:30 06:30 06:30 WBC RBC Hgb Hct MCV MCH MCHC RDW Plt Count Neut % (Auto) Lymph % (Auto) [place] % (Auto) Eos % (Auto) Baso % (Auto) Neut # (Auto) Lymph # (Auto) [place] # (Auto) Eos # (Auto) Baso # (Auto) PT INR Sodium Potassium Chloride Carbon Dioxide BUN Creatinine Estimated GFR BUN/Creatinine Ratio Glucose Lactate Calcium Total Bilirubin AST ALT Alkaline Phosphatase Total Creatine Kinase Troponin I Total Protein Albumin Globulin Albumin/Globulin Ratio Lipase Procalcitonin Urine Color Urine Appearance Urine pH Ur Specific [place] Urine Protein Urine Glucose (UA) Urine Ketones Urine Occult Blood Urine Nitrate Urine Bilirubin Negative Urine Urobilinogen 0.2 0.2 Ur Leukocyte Esterase Negative 3+ H Urine RBC None seen Urine WBC Ur Squamous Epith Cells Urine Bacteria Ur Culture Indicated? Vol Urine Centrifuged Chlamy pneumoniae PCR Adenovirus (PCR) B.parapertussis DNA PCR Coronavirus OC43 (PCR) Coronavirus HKU1 (PCR) Coronavirus 229E (PCR) SARS-CoV-2 (PCR) Coronavirus NL63 (PCR) Human Metapneumovir PCR Influenza Type A (PCR) Influenza Type B (PCR) M. pneumoniae (PCR) Parainfluenza 1 (PCR) Parainfluenza 2 (PCR) Parainfluenza 3 (PCR) Parainfluenza 4 (PCR) RSV (PCR) Entero/Rhino (PCR) 08/12/23 08/12/23 08/12/23 06:30 06:30 06:30 WBC RBC Hgb Hct MCV MCH MCHC RDW Plt Count Neut % (Auto) Lymph % (Auto) [place] % (Auto) Eos % (Auto) Baso % (Auto) Neut # (Auto) Lymph # (Auto) [place] # (Auto) Eos # (Auto) Baso # (Auto) PT INR Sodium Potassium Chloride Carbon Dioxide BUN Creatinine Estimated GFR BUN/Creatinine Ratio Glucose Lactate Calcium Total Bilirubin AST ALT Alkaline Phosphatase Total Creatine Kinase Troponin I Total Protein Albumin Globulin Albumin/Globulin Ratio Lipase Procalcitonin Urine Color Urine Appearance Urine pH Ur Specific [place] Urine Protein Urine Glucose (UA) Urine Ketones Urine Occult Blood Urine Nitrate Urine Bilirubin Urine Urobilinogen Ur Leukocyte Esterase Urine RBC 1-5/hpf Urine WBC None seen 5-10/hpf H Ur Squamous Epith Cells None seen 1-5 /hpf Urine Bacteria None seen Ur Culture Indicated? Vol Urine Centrifuged Chlamy pneumoniae PCR Adenovirus (PCR) B.parapertussis DNA PCR Coronavirus OC43 (PCR) Coronavirus HKU1 (PCR) Coronavirus 229E (PCR) SARS-CoV-2 (PCR) Coronavirus NL63 (PCR) Human Metapneumovir PCR Influenza Type A (PCR) Influenza Type B (PCR) M. pneumoniae (PCR) Parainfluenza 1 (PCR) Parainfluenza 2 (PCR) Parainfluenza 3 (PCR) Parainfluenza 4 (PCR) RSV (PCR) Entero/Rhino (PCR) 08/12/23 08/12/23 08/12/23 06:30 06:30 06:30 WBC RBC Hgb Hct MCV MCH MCHC RDW Plt Count Neut % (Auto) Lymph % (Auto) [place] % (Auto) Eos % (Auto) Baso % (Auto) Neut # (Auto) Lymph # (Auto) [place] # (Auto) Eos # (Auto) Baso # (Auto) PT INR Sodium Potassium Chloride Carbon Dioxide BUN Creatinine Estimated GFR BUN/Creatinine Ratio Glucose Lactate Calcium Total Bilirubin AST ALT Alkaline Phosphatase Total Creatine Kinase Troponin I Total Protein Albumin Globulin Albumin/Globulin Ratio Lipase Procalcitonin Urine Color Urine Appearance Urine pH Ur Specific [place] Urine Protein Urine Glucose (UA) Urine Ketones Urine Occult Blood Urine Nitrate Urine Bilirubin Urine Urobilinogen Ur Leukocyte Esterase Urine RBC Urine WBC Ur Squamous Epith Cells Urine Bacteria Many (>30) H D Ur Culture Indicated? Cult not indicated Specimen cultured Vol Urine Centrifuged 10ml (spun) 10ml (spun) Chlamy pneumoniae PCR Adenovirus (PCR) B.parapertussis DNA PCR Coronavirus OC43 (PCR) Coronavirus HKU1 (PCR) Coronavirus 229E (PCR) SARS-CoV-2 (PCR) Coronavirus NL63 (PCR) Human Metapneumovir PCR Influenza Type A (PCR) Influenza Type B (PCR) M. pneumoniae (PCR) Parainfluenza 1 (PCR) Parainfluenza 2 (PCR) Parainfluenza 3 (PCR) Parainfluenza 4 (PCR) RSV (PCR) Entero/Rhino (PCR) 08/12/23 08/12/23 08/12/23 07:58 10:12 12:18 WBC RBC Hgb Hct MCV MCH MCHC RDW Plt Count Neut % (Auto) Lymph % (Auto) [place] % (Auto) Eos % (Auto) Baso % (Auto) Neut # (Auto) Lymph # (Auto) [place] # (Auto) Eos # (Auto) Baso # (Auto) PT INR Sodium Potassium Chloride Carbon Dioxide BUN Creatinine Estimated GFR BUN/Creatinine Ratio Glucose Lactate 3.0 H 2.3 H 2.6 H Calcium Total Bilirubin AST ALT Alkaline Phosphatase Total Creatine Kinase Troponin I Total Protein Albumin Globulin Albumin/Globulin Ratio Lipase Procalcitonin Urine Color Urine Appearance Urine pH Ur Specific [place] Urine Protein Urine Glucose (UA) Urine Ketones Urine Occult Blood Urine Nitrate Urine Bilirubin Urine Urobilinogen Ur Leukocyte Esterase Urine RBC Urine WBC Ur Squamous Epith Cells Urine Bacteria Ur Culture Indicated? Vol Urine Centrifuged Chlamy pneumoniae PCR Adenovirus (PCR) B.parapertussis DNA PCR Coronavirus OC43 (PCR) Coronavirus HKU1 (PCR) Coronavirus 229E (PCR) SARS-CoV-2 (PCR) Coronavirus NL63 (PCR) Human Metapneumovir PCR Influenza Type A (PCR) Influenza Type B (PCR) M. pneumoniae (PCR) Parainfluenza 1 (PCR) Parainfluenza 2 (PCR) Parainfluenza 3 (PCR) Parainfluenza 4 (PCR) RSV (PCR) Entero/Rhino (PCR) 08/12/23 08/12/23 14:18 16:15 WBC RBC Hgb Hct MCV MCH MCHC RDW Plt Count Neut % (Auto) Lymph % (Auto) [place] % (Auto) Eos % (Auto) Baso % (Auto) Neut # (Auto) Lymph # (Auto) [place] # (Auto) Eos # (Auto) Baso # (Auto) PT INR Sodium Potassium Chloride Carbon Dioxide BUN Creatinine Estimated GFR BUN/Creatinine Ratio Glucose Lactate 2.1 1.7 Calcium Total Bilirubin AST ALT Alkaline Phosphatase Total Creatine Kinase Troponin I Total Protein Albumin Globulin Albumin/Globulin Ratio Lipase Procalcitonin Urine Color Urine Appearance Urine pH Ur Specific [place] Urine Protein Urine Glucose (UA) Urine Ketones Urine Occult Blood Urine Nitrate Urine Bilirubin Urine Urobilinogen Ur Leukocyte Esterase Urine RBC Urine WBC Ur Squamous Epith Cells Urine Bacteria Ur Culture Indicated? Vol Urine Centrifuged Chlamy pneumoniae PCR Adenovirus (PCR) B.parapertussis DNA PCR Coronavirus OC43 (PCR) Coronavirus HKU1 (PCR) Coronavirus 229E (PCR) SARS-CoV-2 (PCR) Coronavirus NL63 (PCR) Human Metapneumovir PCR Influenza Type A (PCR) Influenza Type B (PCR) M. pneumoniae (PCR) Parainfluenza 1 (PCR) Parainfluenza 2 (PCR) Parainfluenza 3 (PCR) Parainfluenza 4 (PCR) RSV (PCR) Entero/Rhino (PCR) Assessment & Plan Assessment & Plan narrative: 73 years old male with a past medical history of prostate cancer with right retroperitoneal mass status post right nephrostomy tube, ESBL UTI, hypertension, coronary artery disease, chronic respiratory failure, atrial fibrillation status post AICD on warfarin, aortic stenosis status post TAVR, diabetes mellitus type 2, GERD and multiple other medical issues was brought in from assisted facility for abdominal pain with nausea and vomiting. He woke up around 2 AM yesterday with nausea and vomiting and abdominal discomfort. Subsequent workup in the ED revealed a white count of 16.2 with a hemoglobin of 11.6. Viral screen was negative. Urine was positive for many bacteria. Lactic acid was 3.0 chest x-ray shows multifocal left lower lobe infiltrate in the left pleural effusion and a CT abdomen showed possible malpositioning of the nephrostomy tube. Patient was given IV ertapenem in addition to Rocephin given the history of ESBL UTI in addition to IV fluids while in the renal function/lactic acidosis monitor. His care was discussed with Dr. Barker on-call urology at [facility]. Patient was accepted for transfer but due to lack of immediate bed availability, patient has been admitted to the medical floor pending transfer. Currently does complain of abdominal discomfort but slightly better than yesterday and nephrostomy tube is draining urine. 1. nephrostomy tube malpositioning/malfunction. Still draining urine and urology have already been consulted. IV Invanz to continue for now given the history of ESBL and wait for bed availability for transfer to higher level of care/follow-up by urology 2. Urinary tract infection with history of ESBL. Continue the Invanz initiated in the emergency room 3. Infiltrate noted on the chest x-ray with concerns for pneumonia. Received IV Rocephin/Zithromax in the ED. Monitor closely for now and if O2 saturation remained stable in the mid 90s, will review the need for oral Augmentin versus IV Rocephin/Zithromax. 4. Diabetes mellitus type 2. Confirm and resume the home medications with insulin sliding scale. Hold metformin due to rising creatinine 5. History of atrial fibrillation/pulm embolism. Resume the home Coumadin which will be dosed by pharmacy. Check INR 6. Restless leg syndrome resume the home Mirapex/ 7. Depression resume the home Zoloft 8. Coronary artery disease status post angioplasty 9 DVT prophylaxis will be with Coumadin CODE STATUS for now is full but based on previous records was DNR. Will need reassessment during the day team Patient will be admitted under inpatient status. Given the urinary tract infection with leukocytosis/malpositioned nephrostomy tube needing possible procedure, patient meets criteria for inpatient with expected length of stay greater than 2 midnights Patient was evaluated by a communication device. Location of the provider is [facility]
--- NOTE | 2023-08-13 03:31 | P.HP_ITS ---
History of Present Illness History of Present Illness Chief complaint: new onset vomiting Narrative: 73 years old male with a past medical history of prostate cancer with right retroperitoneal mass status post right nephrostomy tube, ESBL UTI, hypertension, coronary artery disease, chronic respiratory failure, atrial fibrillation status post AICD on warfarin, aortic stenosis status post TAVR, diabetes mellitus type 2, GERD and multiple other medical issues was brought in from assisted facility for abdominal pain with nausea and vomiting. He woke up around 2 AM yesterday with nausea and vomiting and abdominal discomfort. Subsequent workup in the ED revealed a white count of 16.2 with a hemoglobin of 11.6. Viral screen was negative. Urine was positive for many bacteria. Lactic acid was 3.0 chest x- ray shows multifocal left lower lobe infiltrate in the left pleural effusion and a CT abdomen showed possible malpositioning of the nephrostomy tube. Patient was given IV ertapenem in addition to Rocephin given the history of ESBL UTI in addition to IV fluids while in the renal function/lactic acidosis monitor. His care was discussed with Dr. Barker on-call urology at [facility]. Patient was accepted for transfer but due to lack of immediate bed availability, patient has been admitted to the medical floor pending transfer. Currently does complain of abdominal discomfort but slightly better than yesterday and nephrostomy tube is draining urine. FORMERLY [facility] Medical History DVT (deep venous thrombosis) History of left heart catheterization (12/2019) Atrial fibrillation Paroxysmal A-fib RBBB LAFB (left anterior fascicular block) First degree AV block History of transcatheter aortic valve replacement (TAVR) (08/01/18) Sleep apnea CAD (coronary artery disease) Stress incontinence Enlarged lymph node Chronic anticoagulation Androgen deprivation therapy Stress incontinence, male History of radiation therapy Hydronephrosis, right Prostate cancer Osteoarthritis Hypertension Gout Depression History of prostate cancer Arthritis GERD (gastroesophageal reflux disease) Diabetes Congestive heart failure Pacemaker Surgical History AICD (automatic cardioverter/defibrillator) present (12/30/20) Hx of heart artery stent History of back surgery H/O aortic valve replacement Family History Mother Coronary artery disease involving bypass graft of transplanted heart Cancer Hypertension Social History marital status: number of children: 3 household members: none Previous occupational history: retired Smoking Status: Former smoker alcohol intake: never caffeine: Yes Meds Home Medications and Allergies Home Medications Medication Instructions Recorded Confirmed Type acetaminophen 325 mg tablet 650 mg PO Q4H PRN pain 06/13/22 08/12/23 History atorvastatin 40 mg tablet 40 mg PO BEDTIME 06/13/22 08/12/23 History calcium carbonate 215 mg calcium 500 mg DAILY 06/13/22 08/12/23 History (500 mg) chewable tablet (Antacid (calcium carbonate)) ferrous sulfate 325 mg (65 mg 325 mg PO DAILY 06/13/22 08/12/23 History iron) tablet furosemide 40 mg tablet 40 mg PO DAILY 06/13/22 08/12/23 History gabapentin 300 mg tablet 600 mg PO BID 06/13/22 08/12/23 History insulin glargine 100 unit/mL 10 unit SUBCUT QPM 06/13/22 08/12/23 History subcutaneous cartridge insulin lispro 100 unit/mL 1 sliding scale dose SUBCUT 06/13/22 08/12/23 History subcutaneous cartridge USEASDIRECTD lisinopril 2.5 mg tablet 2.5 mg PO DAILY 06/13/22 08/12/23 History metoprolol succinate 25 mg 12.5 mg PO DAILY 06/13/22 08/12/23 History tablet,extended release 24 hr pantoprazole 40 mg tablet,delayed 40 mg PO DAILY 06/13/22 08/12/23 History release (Protonix) pramipexole 0.5 mg tablet (Mirapex) 0.5 mg PO DAILY 06/13/22 08/12/23 History ropinirole 1 mg tablet 2 mg PO BID 06/13/22 08/12/23 History sertraline 50 mg tablet (Zoloft) 50 mg PO DAILY 06/13/22 08/12/23 History tolterodine 4 mg capsule,extended 4 mg PO DAILY 06/13/22 08/12/23 History release 24 hr (Detrol LA) hydroxyzine pamoate 25 mg capsule 25 mg PO PRN PRN Sleep 08/03/22 08/12/23 History (Vistaril) hydrocodone 5 mg-acetaminophen 325 2 tab PO Q6H PRN pain #30 tabs 10/18/22 08/12/23 Rx mg tablet bicalutamide 50 mg tablet 50 mg PO DAILY 12/14/22 08/12/23 History ondansetron 4 mg disintegrating 8 mg PO Q6H PRN Nausea 12/14/22 08/12/23 History tablet ropinirole 2 mg tablet 2 mg PO BEDTIME 12/14/22 02/05/23 History spironolactone 25 mg tablet 25 mg PO BID 12/14/22 08/12/23 History sennosides 8.6 mg tablet (senna) 17.2 mg PO BEDTIME PRN Constipation 08/12/23 08/12/23 History oxycodone 10 mg tablet,crush 10 mg PO BID 08/13/23 08/13/23 History resistant,extended release 12 hr (OxyContin) Allergies Allergy/AdvReac Type Severity Reaction Status Date / Time crab Allergy Severe Deathly Verified 02/05/23 10:58 sick aspartame Allergy Unknown Verified 02/05/23 10:58 carbidopa Allergy Hallucinations, Verified 02/05/23 10:58 anxiety morphine AdvReac Nausea/vomi Verified 02/05/23 10:58 ting Exam Vital Signs (past 8 hours): - 08/12/23 19:41 08/12/23 19:42 08/12/23 19:42 Temperature Pulse Rate 51 L 69 Respiratory Rate Blood Pressure 152/64 H Pulse Oximetry 95 93 Oxygen Delivery Method Oxygen Flow Rate 08/12/23 20:00 08/12/23 20:00 08/12/23 20:30 Temperature Pulse Rate 67 Respiratory Rate Blood Pressure 123/58 L 129/59 L Pulse Oximetry 92 Oxygen Delivery Method Oxygen Flow Rate 08/12/23 20:30 08/12/23 21:00 08/12/23 21:01 Temperature Pulse Rate 65 61 61 Respiratory Rate 18 15 15 Blood Pressure Pulse Oximetry 90 L 92 93 Oxygen Delivery Method Oxygen Flow Rate 08/12/23 21:01 08/12/23 21:30 08/12/23 21:30 Temperature Pulse Rate 62 Respiratory Rate 14 Blood Pressure 100/52 L 124/58 L Pulse Oximetry 94 Oxygen Delivery Method Oxygen Flow Rate 08/12/23 22:00 08/12/23 22:00 08/12/23 22:30 Temperature Pulse Rate 63 Respiratory Rate 14 Blood Pressure 128/56 L 124/57 L Pulse Oximetry 95 Oxygen Delivery Method Oxygen Flow Rate 08/12/23 22:30 08/12/23 23:00 08/12/23 23:00 Temperature Pulse Rate 60 60 Respiratory Rate 13 13 Blood Pressure 135/62 Pulse Oximetry 94 95 Oxygen Delivery Method Oxygen Flow Rate 08/12/23 23:30 08/12/23 23:30 08/13/23 00:00 Temperature Pulse Rate 60 61 Respiratory Rate 15 16 Blood Pressure 108/55 L Pulse Oximetry 95 96 Oxygen Delivery Method Oxygen Flow Rate 08/13/23 00:01 08/13/23 00:01 08/13/23 00:29 Temperature 97.5 F L Pulse Rate 62 62 Respiratory Rate 16 17 Blood Pressure 130/62 143/58 H Pulse Oximetry 96 95 Oxygen Delivery Method Room Air Oxygen Flow Rate 0 08/13/23 00:30 Temperature Pulse Rate Respiratory Rate Blood Pressure Pulse Oximetry Oxygen Delivery Method Room Air Oxygen Flow Rate Oxygen Delivery Method Room Air Oxygen Flow Rate 0 Objective Labs 08/12/23 05:47 08/12/23 05:47 Labs: Laboratory Results - last 24 hr 08/12/23 08/12/23 08/12/23 05:45 05:47 06:30 WBC 16.2 H RBC 4.08 L Hgb 11.6 L Hct 34.9 L MCV 85.6 MCH 28.5 MCHC 33.3 RDW 17.9 H Plt Count 190 Neut % (Auto) 90.7 H Lymph % (Auto) 4.1 L [place] % (Auto) 4.0 Eos % (Auto) 0.7 L Baso % (Auto) 0.5 Neut # (Auto) 21542 H Lymph # (Auto) 700 L [place] # (Auto) 600 Eos # (Auto) 100 Baso # (Auto) 100 PT 18.8 H INR 1.6 H Sodium 137 Potassium 4.1 Chloride 104 Carbon Dioxide 21 L BUN 25 H Creatinine 1.68 H Estimated GFR 42 L BUN/Creatinine Ratio 14.9 Glucose 217 H Lactate 3.3 H Calcium 8.7 Total Bilirubin 0.7 AST 20 ALT 14 Alkaline Phosphatase 91 Total Creatine Kinase 31 L Troponin I < 0.012 Total Protein 7.0 Albumin 3.9 Globulin 3.1 Albumin/Globulin Ratio 1.3 Lipase 59 Procalcitonin 0.18 Urine Color Yellow Urine Appearance Urine pH Ur Specific [place] Urine Protein Urine Glucose (UA) Urine Ketones Urine Occult Blood Urine Nitrate Urine Bilirubin Urine Urobilinogen Ur Leukocyte Esterase Urine RBC Urine WBC Ur Squamous Epith Cells Urine Bacteria Ur Culture Indicated? Vol Urine Centrifuged Chlamy pneumoniae PCR Not detected Adenovirus (PCR) Not detected B.parapertussis DNA PCR Not detected Coronavirus OC43 (PCR) Not detected Coronavirus HKU1 (PCR) Not detected Coronavirus 229E (PCR) Not detected SARS-CoV-2 (PCR) Not detected Coronavirus NL63 (PCR) Not detected Human Metapneumovir PCR Not detected Influenza Type A (PCR) Not detected Influenza Type B (PCR) Not detected M. pneumoniae (PCR) Not detected Parainfluenza 1 (PCR) Not detected Parainfluenza 2 (PCR) Not detected Parainfluenza 3 (PCR) Not detected Parainfluenza 4 (PCR) Not detected RSV (PCR) Not detected Entero/Rhino (PCR) Not detected 08/12/23 08/12/23 08/12/23 06:30 06:30 06:30 WBC RBC Hgb Hct MCV MCH MCHC RDW Plt Count Neut % (Auto) Lymph % (Auto) [place] % (Auto) Eos % (Auto) Baso % (Auto) Neut # (Auto) Lymph # (Auto) [place] # (Auto) Eos # (Auto) Baso # (Auto) PT INR Sodium Potassium Chloride Carbon Dioxide BUN Creatinine Estimated GFR BUN/Creatinine Ratio Glucose Lactate Calcium Total Bilirubin AST ALT Alkaline Phosphatase Total Creatine Kinase Troponin I Total Protein Albumin Globulin Albumin/Globulin Ratio Lipase Procalcitonin Urine Color Yellow Urine Appearance Clear Sl cloudy Urine pH 5.0 6.5 Ur Specific [place] 1.020 Urine Protein Urine Glucose (UA) Urine Ketones Urine Occult Blood Urine Nitrate Urine Bilirubin Urine Urobilinogen Ur Leukocyte Esterase Urine RBC Urine WBC Ur Squamous Epith Cells Urine Bacteria Ur Culture Indicated? Vol Urine Centrifuged Chlamy pneumoniae PCR Adenovirus (PCR) B.parapertussis DNA PCR Coronavirus OC43 (PCR) Coronavirus HKU1 (PCR) Coronavirus 229E (PCR) SARS-CoV-2 (PCR) Coronavirus NL63 (PCR) Human Metapneumovir PCR Influenza Type A (PCR) Influenza Type B (PCR) M. pneumoniae (PCR) Parainfluenza 1 (PCR) Parainfluenza 2 (PCR) Parainfluenza 3 (PCR) Parainfluenza 4 (PCR) RSV (PCR) Entero/Rhino (PCR) 08/12/23 08/12/23 08/12/23 06:30 06:30 06:30 WBC RBC Hgb Hct MCV MCH MCHC RDW Plt Count Neut % (Auto) Lymph % (Auto) [place] % (Auto) Eos % (Auto) Baso % (Auto) Neut # (Auto) Lymph # (Auto) [place] # (Auto) Eos # (Auto) Baso # (Auto) PT INR Sodium Potassium Chloride Carbon Dioxide BUN Creatinine Estimated GFR BUN/Creatinine Ratio Glucose Lactate Calcium Total Bilirubin AST ALT Alkaline Phosphatase Total Creatine Kinase Troponin I Total Protein Albumin Globulin Albumin/Globulin Ratio Lipase Procalcitonin Urine Color Urine Appearance Urine pH Ur Specific [place] 1.010 Urine Protein Negative 1+ H Urine Glucose (UA) Negative 1+ H Urine Ketones Negative Urine Occult Blood Urine Nitrate Urine Bilirubin Urine Urobilinogen Ur Leukocyte Esterase Urine RBC Urine WBC Ur Squamous Epith Cells Urine Bacteria Ur Culture Indicated? Vol Urine Centrifuged Chlamy pneumoniae PCR Adenovirus (PCR) B.parapertussis DNA PCR Coronavirus OC43 (PCR) Coronavirus HKU1 (PCR) Coronavirus 229E (PCR) SARS-CoV-2 (PCR) Coronavirus NL63 (PCR) Human Metapneumovir PCR Influenza Type A (PCR) Influenza Type B (PCR) M. pneumoniae (PCR) Parainfluenza 1 (PCR) Parainfluenza 2 (PCR) Parainfluenza 3 (PCR) Parainfluenza 4 (PCR) RSV (PCR) Entero/Rhino (PCR) 08/12/23 08/12/23 08/12/23 06:30 06:30 06:30 WBC RBC Hgb Hct MCV MCH MCHC RDW Plt Count Neut % (Auto) Lymph % (Auto) [place] % (Auto) Eos % (Auto) Baso % (Auto) Neut # (Auto) Lymph # (Auto) [place] # (Auto) Eos # (Auto) Baso # (Auto) PT INR Sodium Potassium Chloride Carbon Dioxide BUN Creatinine Estimated GFR BUN/Creatinine Ratio Glucose Lactate Calcium Total Bilirubin AST ALT Alkaline Phosphatase Total Creatine Kinase Troponin I Total Protein Albumin Globulin Albumin/Globulin Ratio Lipase Procalcitonin Urine Color Urine Appearance Urine pH Ur Specific [place] Urine Protein Urine Glucose (UA) Urine Ketones Negative Urine Occult Blood Negative 2+ H Urine Nitrate Negative Positive H Urine Bilirubin Negative Urine Urobilinogen Ur Leukocyte Esterase Urine RBC Urine WBC Ur Squamous Epith Cells Urine Bacteria Ur Culture Indicated? Vol Urine Centrifuged Chlamy pneumoniae PCR Adenovirus (PCR) B.parapertussis DNA PCR Coronavirus OC43 (PCR) Coronavirus HKU1 (PCR) Coronavirus 229E (PCR) SARS-CoV-2 (PCR) Coronavirus NL63 (PCR) Human Metapneumovir PCR Influenza Type A (PCR) Influenza Type B (PCR) M. pneumoniae (PCR) Parainfluenza 1 (PCR) Parainfluenza 2 (PCR) Parainfluenza 3 (PCR) Parainfluenza 4 (PCR) RSV (PCR) Entero/Rhino (PCR) 08/12/23 08/12/23 08/12/23 06:30 06:30 06:30 WBC RBC Hgb Hct MCV MCH MCHC RDW Plt Count Neut % (Auto) Lymph % (Auto) [place] % (Auto) Eos % (Auto) Baso % (Auto) Neut # (Auto) Lymph # (Auto) [place] # (Auto) Eos # (Auto) Baso # (Auto) PT INR Sodium Potassium Chloride Carbon Dioxide BUN Creatinine Estimated GFR BUN/Creatinine Ratio Glucose Lactate Calcium Total Bilirubin AST ALT Alkaline Phosphatase Total Creatine Kinase Troponin I Total Protein Albumin Globulin Albumin/Globulin Ratio Lipase Procalcitonin Urine Color Urine Appearance Urine pH Ur Specific [place] Urine Protein Urine Glucose (UA) Urine Ketones Urine Occult Blood Urine Nitrate Urine Bilirubin Negative Urine Urobilinogen 0.2 0.2 Ur Leukocyte Esterase Negative 3+ H Urine RBC None seen Urine WBC Ur Squamous Epith Cells Urine Bacteria Ur Culture Indicated? Vol Urine Centrifuged Chlamy pneumoniae PCR Adenovirus (PCR) B.parapertussis DNA PCR Coronavirus OC43 (PCR) Coronavirus HKU1 (PCR) Coronavirus 229E (PCR) SARS-CoV-2 (PCR) Coronavirus NL63 (PCR) Human Metapneumovir PCR Influenza Type A (PCR) Influenza Type B (PCR) M. pneumoniae (PCR) Parainfluenza 1 (PCR) Parainfluenza 2 (PCR) Parainfluenza 3 (PCR) Parainfluenza 4 (PCR) RSV (PCR) Entero/Rhino (PCR) 08/12/23 08/12/23 08/12/23 06:30 06:30 06:30 WBC RBC Hgb Hct MCV MCH MCHC RDW Plt Count Neut % (Auto) Lymph % (Auto) [place] % (Auto) Eos % (Auto) Baso % (Auto) Neut # (Auto) Lymph # (Auto) [place] # (Auto) Eos # (Auto) Baso # (Auto) PT INR Sodium Potassium Chloride Carbon Dioxide BUN Creatinine Estimated GFR BUN/Creatinine Ratio Glucose Lactate Calcium Total Bilirubin AST ALT Alkaline Phosphatase Total Creatine Kinase Troponin I Total Protein Albumin Globulin Albumin/Globulin Ratio Lipase Procalcitonin Urine Color Urine Appearance Urine pH Ur Specific [place] Urine Protein Urine Glucose (UA) Urine Ketones Urine Occult Blood Urine Nitrate Urine Bilirubin Urine Urobilinogen Ur Leukocyte Esterase Urine RBC 1-5/hpf Urine WBC None seen 5-10/hpf H Ur Squamous Epith Cells None seen 1-5 /hpf Urine Bacteria None seen Ur Culture Indicated? Vol Urine Centrifuged Chlamy pneumoniae PCR Adenovirus (PCR) B.parapertussis DNA PCR Coronavirus OC43 (PCR) Coronavirus HKU1 (PCR) Coronavirus 229E (PCR) SARS-CoV-2 (PCR) Coronavirus NL63 (PCR) Human Metapneumovir PCR Influenza Type A (PCR) Influenza Type B (PCR) M. pneumoniae (PCR) Parainfluenza 1 (PCR) Parainfluenza 2 (PCR) Parainfluenza 3 (PCR) Parainfluenza 4 (PCR) RSV (PCR) Entero/Rhino (PCR) 08/12/23 08/12/23 08/12/23 06:30 06:30 06:30 WBC RBC Hgb Hct MCV MCH MCHC RDW Plt Count Neut % (Auto) Lymph % (Auto) [place] % (Auto) Eos % (Auto) Baso % (Auto) Neut # (Auto) Lymph # (Auto) [place] # (Auto) Eos # (Auto) Baso # (Auto) PT INR Sodium Potassium Chloride Carbon Dioxide BUN Creatinine Estimated GFR BUN/Creatinine Ratio Glucose Lactate Calcium Total Bilirubin AST ALT Alkaline Phosphatase Total Creatine Kinase Troponin I Total Protein Albumin Globulin Albumin/Globulin Ratio Lipase Procalcitonin Urine Color Urine Appearance Urine pH Ur Specific [place] Urine Protein Urine Glucose (UA) Urine Ketones Urine Occult Blood Urine Nitrate Urine Bilirubin Urine Urobilinogen Ur Leukocyte Esterase Urine RBC Urine WBC Ur Squamous Epith Cells Urine Bacteria Many (>30) H D Ur Culture Indicated? Cult not indicated Specimen cultured Vol Urine Centrifuged 10ml (spun) 10ml (spun) Chlamy pneumoniae PCR Adenovirus (PCR) B.parapertussis DNA PCR Coronavirus OC43 (PCR) Coronavirus HKU1 (PCR) Coronavirus 229E (PCR) SARS-CoV-2 (PCR) Coronavirus NL63 (PCR) Human Metapneumovir PCR Influenza Type A (PCR) Influenza Type B (PCR) M. pneumoniae (PCR) Parainfluenza 1 (PCR) Parainfluenza 2 (PCR) Parainfluenza 3 (PCR) Parainfluenza 4 (PCR) RSV (PCR) Entero/Rhino (PCR) 08/12/23 08/12/23 08/12/23 07:58 10:12 12:18 WBC RBC Hgb Hct MCV MCH MCHC RDW Plt Count Neut % (Auto) Lymph % (Auto) [place] % (Auto) Eos % (Auto) Baso % (Auto) Neut # (Auto) Lymph # (Auto) [place] # (Auto) Eos # (Auto) Baso # (Auto) PT INR Sodium Potassium Chloride Carbon Dioxide BUN Creatinine Estimated GFR BUN/Creatinine Ratio Glucose Lactate 3.0 H 2.3 H 2.6 H Calcium Total Bilirubin AST ALT Alkaline Phosphatase Total Creatine Kinase Troponin I Total Protein Albumin Globulin Albumin/Globulin Ratio Lipase Procalcitonin Urine Color Urine Appearance Urine pH Ur Specific [place] Urine Protein Urine Glucose (UA) Urine Ketones Urine Occult Blood Urine Nitrate Urine Bilirubin Urine Urobilinogen Ur Leukocyte Esterase Urine RBC Urine WBC Ur Squamous Epith Cells Urine Bacteria Ur Culture Indicated? Vol Urine Centrifuged Chlamy pneumoniae PCR Adenovirus (PCR) B.parapertussis DNA PCR Coronavirus OC43 (PCR) Coronavirus HKU1 (PCR) Coronavirus 229E (PCR) SARS-CoV-2 (PCR) Coronavirus NL63 (PCR) Human Metapneumovir PCR Influenza Type A (PCR) Influenza Type B (PCR) M. pneumoniae (PCR) Parainfluenza 1 (PCR) Parainfluenza 2 (PCR) Parainfluenza 3 (PCR) Parainfluenza 4 (PCR) RSV (PCR) Entero/Rhino (PCR) 08/12/23 08/12/23 14:18 16:15 WBC RBC Hgb Hct MCV MCH MCHC RDW Plt Count Neut % (Auto) Lymph % (Auto) [place] % (Auto) Eos % (Auto) Baso % (Auto) Neut # (Auto) Lymph # (Auto) [place] # (Auto) Eos # (Auto) Baso # (Auto) PT INR Sodium Potassium Chloride Carbon Dioxide BUN Creatinine Estimated GFR BUN/Creatinine Ratio Glucose Lactate 2.1 1.7 Calcium Total Bilirubin AST ALT Alkaline Phosphatase Total Creatine Kinase Troponin I Total Protein Albumin Globulin Albumin/Globulin Ratio Lipase Procalcitonin Urine Color Urine Appearance Urine pH Ur Specific [place] Urine Protein Urine Glucose (UA) Urine Ketones Urine Occult Blood Urine Nitrate Urine Bilirubin Urine Urobilinogen Ur Leukocyte Esterase Urine RBC Urine WBC Ur Squamous Epith Cells Urine Bacteria Ur Culture Indicated? Vol Urine Centrifuged Chlamy pneumoniae PCR Adenovirus (PCR) B.parapertussis DNA PCR Coronavirus OC43 (PCR) Coronavirus HKU1 (PCR) Coronavirus 229E (PCR) SARS-CoV-2 (PCR) Coronavirus NL63 (PCR) Human Metapneumovir PCR Influenza Type A (PCR) Influenza Type B (PCR) M. pneumoniae (PCR) Parainfluenza 1 (PCR) Parainfluenza 2 (PCR) Parainfluenza 3 (PCR) Parainfluenza 4 (PCR) RSV (PCR) Entero/Rhino (PCR) Assessment & Plan Assessment & Plan narrative: 73 years old male with a past medical history of prostate cancer with right retroperitoneal mass status post right nephrostomy tube, ESBL UTI, hypertension, coronary artery disease, chronic respiratory failure, atrial fibrillation status post AICD on warfarin, aortic stenosis status post TAVR, diabetes mellitus type 2, GERD and multiple other medical issues was brought in from assisted facility for abdominal pain with nausea and vomiting. He woke up around 2 AM yesterday with nausea and vomiting and abdominal discomfort. Subsequent workup in the ED revealed a white count of 16.2 with a hemoglobin of 11.6. Viral screen was negative. Urine was positive for many bacteria. Lactic acid was 3.0 chest x- ray shows multifocal left lower lobe infiltrate in the left pleural effusion and a CT abdomen showed possible malpositioning of the nephrostomy tube. Patient was given IV ertapenem in addition to Rocephin given the history of ESBL UTI in addition to IV fluids while in the renal function/lactic acidosis monitor. His care was discussed with Dr. Barker on-call urology at [facility]. Patient was accepted for transfer but due to lack of immediate bed availability, patient has been admitted to the medical floor pending transfer. Currently does complain of abdominal discomfort but slightly better than yesterday and nephrostomy tube is draining urine. 1. nephrostomy tube malpositioning/malfunction. Still draining urine and urology have already been consulted. IV Invanz to continue for now given the history of ESBL and wait for bed availability for transfer to higher level of care/follow-up by urology 2. Urinary tract infection with history of ESBL. Continue the Invanz initiated in the emergency room 3. Infiltrate noted on the chest x-ray with concerns for pneumonia. Received IV Rocephin/Zithromax in the ED. Monitor closely for now and if O2 saturation remained stable in the mid 90s, will review the need for oral Augmentin versus IV Rocephin/Zithromax. 4. Diabetes mellitus type 2. Confirm and resume the home medications with insulin sliding scale. Hold metformin due to rising creatinine 5. History of atrial fibrillation/pulm embolism. Resume the home Coumadin which will be dosed by pharmacy. Check INR 6. Restless leg syndrome resume the home Mirapex/ 7. Depression resume the home Zoloft 8. Coronary artery disease status post angioplasty 9 DVT prophylaxis will be with Coumadin CODE STATUS for now is full but based on previous records was DNR. Will need reassessment during the day team Patient will be admitted under inpatient status. Given the urinary tract infection with leukocytosis/malpositioned nephrostomy tube needing possible procedure, patient meets criteria for inpatient with expected length of stay greater than 2 midnights Patient was evaluated by a communication device. Location of the provider is [facility] 73 years old male with a past medical history of prostate cancer with right retroperitoneal mass status post right nephrostomy tube, ESBL UTI, hypertension, coronary artery disease, chronic respiratory failure, atrial fibrillation status post AICD on warfarin, aortic stenosis status post TAVR, diabetes mellitus type 2, GERD and multiple other medical issues was brought in from assisted facility for abdominal pain with nausea and vomiting. He woke up around 2 AM yesterday with nausea and vomiting and abdominal discomfort. Subsequent workup in the ED revealed a white count of 16.2 with a hemoglobin of 11.6. Viral screen was negative. Urine was positive for many bacteria. Lactic acid was 3.0 chest x- ray shows multifocal left lower lobe infiltrate in the left pleural effusion and a CT abdomen showed possible malpositioning of the nephrostomy tube. Patient was given IV ertapenem in addition to Rocephin given the history of ESBL UTI in addition to IV fluids while in the renal function/lactic acidosis monitor. His care was discussed with Dr. Barker on-call urology at [facility]. Patient was accepted for transfer but due to lack of immediate bed availability, patient has been admitted to the medical floor pending transfer. Currently does complain of abdominal discomfort but slightly better than yesterday and nephrostomy tube is draining urine. 1. nephrostomy tube malpositioning/malfunction. Still draining urine and urology have already been consulted. IV Invanz to continue for now given the history of ESBL and wait for bed availability for transfer to higher level of care/follow-up by urology 2. Urinary tract infection with history of ESBL. Continue the Invanz initiated in the emergency room 3. Infiltrate noted on the chest x-ray with concerns for pneumonia. Received IV Rocephin/Zithromax in the ED. Monitor closely for now and if O2 saturation remained stable in the mid 90s, will review the need for oral Augmentin versus IV Rocephin/Zithromax. 4. Diabetes mellitus type 2. Confirm and resume the home medications with insulin sliding scale. Hold metformin due to rising creatinine 5. History of atrial fibrillation/pulm embolism. Resume the home Coumadin which will be dosed by pharmacy. Check INR 6. Restless leg syndrome resume the home Mirapex/ 7. Depression resume the home Zoloft 8. Coronary artery disease status post angioplasty 9 DVT prophylaxis will be with Coumadin CODE STATUS for now is full but based on previous records was DNR. Will need reassessment during the day team Patient will be admitted under inpatient status. Given the urinary tract infection with leukocytosis/malpositioned nephrostomy tube needing possible procedure, patient meets criteria for inpatient with expected length of stay greater than 2 midnights Patient was evaluated by a communication device. Location of the provider is [facility]
[2023-08-13] MEDS: VANCOMYCIN 2,000 MG/400 ML PIGGYBACK 200 MG IV (04:53)
--- NOTE | 2023-08-13 06:06 | PC.NURSE ---
Admit/Night Note-Patient admitted to room 222 from ED. A/Ox3, bit forgetful of date, participates in care, able to answer questions. nephrostomy tube draining clear/cloudy urine, drsg at site D/I, also incontinent urine, condom catheter place for night. NS @ 125ml/hr, Maribel ignacio per order. Medicated with PO analgesics per prn orders.
--- NOTE | 2023-08-13 07:54 | P.HP_ITS ---
History of Present Illness History of Present Illness Chief complaint: new onset vomiting Narrative: From Night Doctor: 73 years old male with a past medical history of prostate cancer with right retroperitoneal mass status post right nephrostomy tube, ESBL UTI, hypertension, coronary artery disease, chronic respiratory failure, atrial fibrillation status post AICD on warfarin, aortic stenosis status post TAVR, diabetes mellitus type 2, GERD and multiple other medical issues was brought in from assisted facility for abdominal pain with nausea and vomiting. He woke up around 2 AM yesterday with nausea and vomiting and abdominal discomfort. Subsequent workup in the ED revealed a white count of 16.2 with a hemoglobin of 11.6. Viral screen was negative. Urine was positive for many bacteria. Lactic acid was 3.0 chest x- ray shows multifocal left lower lobe infiltrate in the left pleural effusion and a CT abdomen showed possible malpositioning of the nephrostomy tube. Patient was given IV ertapenem in addition to Rocephin given the history of ESBL UTI in addition to IV fluids while in the renal function/lactic acidosis monitor. His care was discussed with Dr. Barker on-call urology at [facility]. Patient was accepted for transfer but due to lack of immediate bed availability, patient has been admitted to the medical floor pending transfer. Currently does complain of abdominal discomfort but slightly better than yesterday and nephrostomy tube is draining urine. Additional history:. He states he just does not feel well. He has been staying in an assisted living recently. He is unsure who his urologist is. He has having a fair amount of flank pain associated with his nephrostomy tube. He also has intermittent nausea and dry heaving. He denies any fevers or chills. He has been constipated he also denies any dyspnea or chest pain. [facility] Medical History DVT (deep venous thrombosis) History of left heart catheterization (12/2019) Atrial fibrillation Paroxysmal A-fib RBBB LAFB (left anterior fascicular block) First degree AV block History of transcatheter aortic valve replacement (TAVR) (08/01/18) Sleep apnea CAD (coronary artery disease) Stress incontinence Enlarged lymph node Chronic anticoagulation Androgen deprivation therapy Stress incontinence, male History of radiation therapy Hydronephrosis, right Prostate cancer Osteoarthritis Hypertension Gout Depression History of prostate cancer Arthritis GERD (gastroesophageal reflux disease) Diabetes Congestive heart failure Pacemaker Surgical History AICD (automatic cardioverter/defibrillator) present (12/30/20) Hx of heart artery stent History of back surgery H/O aortic valve replacement Family History Mother Coronary artery disease involving bypass graft of transplanted heart Cancer Hypertension Social History marital status: number of children: 3 household members: none Previous occupational history: retired Smoking Status: Former smoker alcohol intake: never caffeine: Yes Meds Home Medications and Allergies Home Medications Medication Instructions Recorded Confirmed Type acetaminophen 325 mg tablet 650 mg PO Q4H PRN pain 06/13/22 08/12/23 History atorvastatin 40 mg tablet 40 mg PO BEDTIME 06/13/22 08/12/23 History calcium carbonate 215 mg calcium 500 mg DAILY 06/13/22 08/12/23 History (500 mg) chewable tablet (Antacid (calcium carbonate)) ferrous sulfate 325 mg (65 mg 325 mg PO DAILY 06/13/22 08/12/23 History iron) tablet furosemide 40 mg tablet 40 mg PO DAILY 06/13/22 08/12/23 History gabapentin 300 mg tablet 600 mg PO BID 06/13/22 08/12/23 History insulin glargine 100 unit/mL 10 unit SUBCUT QPM 06/13/22 08/12/23 History subcutaneous cartridge insulin lispro 100 unit/mL 1 sliding scale dose SUBCUT 06/13/22 08/12/23 History subcutaneous cartridge USEASDIRECTD lisinopril 2.5 mg tablet 2.5 mg PO DAILY 06/13/22 08/12/23 History metoprolol succinate 25 mg 12.5 mg PO DAILY 06/13/22 08/12/23 History tablet,extended release 24 hr pantoprazole 40 mg tablet,delayed 40 mg PO DAILY 06/13/22 08/12/23 History release (Protonix) pramipexole 0.5 mg tablet (Mirapex) 0.5 mg PO DAILY 06/13/22 08/12/23 History ropinirole 1 mg tablet 2 mg PO BID 06/13/22 08/12/23 History sertraline 50 mg tablet (Zoloft) 50 mg PO DAILY 06/13/22 08/12/23 History tolterodine 4 mg capsule,extended 4 mg PO DAILY 06/13/22 08/12/23 History release 24 hr (Detrol LA) hydroxyzine pamoate 25 mg capsule 25 mg PO PRN PRN Sleep 08/03/22 08/12/23 History (Vistaril) hydrocodone 5 mg-acetaminophen 325 2 tab PO Q6H PRN pain #30 tabs 10/18/22 08/12/23 Rx mg tablet bicalutamide 50 mg tablet 50 mg PO DAILY 12/14/22 08/12/23 History ondansetron 4 mg disintegrating 8 mg PO Q6H PRN Nausea 12/14/22 08/12/23 History tablet ropinirole 2 mg tablet 2 mg PO BEDTIME 12/14/22 02/05/23 History spironolactone 25 mg tablet 25 mg PO BID 12/14/22 08/12/23 History sennosides 8.6 mg tablet (senna) 17.2 mg PO BEDTIME PRN Constipation 08/12/23 08/12/23 History oxycodone 10 mg tablet,crush 10 mg PO BID 08/13/23 08/13/23 History resistant,extended release 12 hr (OxyContin) Allergies Allergy/AdvReac Type Severity Reaction Status Date / Time crab Allergy Severe Deathly Verified 02/05/23 10:58 sick aspartame Allergy Unknown Verified 02/05/23 10:58 carbidopa Allergy Hallucinations, Verified 02/05/23 10:58 anxiety morphine AdvReac Nausea/vomi Verified 02/05/23 10:58 ting Review of Systems Review of Systems Narrative: All else reviewed and otherwise unremarkable except as noted in the history and physical. Exam Vital Signs (past 8 hours): - 08/13/23 00:00 08/13/23 00:01 08/13/23 00:01 Temperature Pulse Rate 61 62 Respiratory Rate 16 16 Blood Pressure 130/62 Pulse Oximetry 96 96 Oxygen Delivery Method Room Air Oxygen Flow Rate 08/13/23 00:29 08/13/23 00:30 08/13/23 04:00 Temperature 97.5 F L 96.9 F L Pulse Rate 62 66 Respiratory Rate 17 17 Blood Pressure 143/58 H 125/67 Pulse Oximetry 95 94 Oxygen Delivery Method Room Air Oxygen Flow Rate 0 0 Oxygen Delivery Method Room Air Oxygen Flow Rate 0 Narrative Exam Narrative: NAD, slightly confused, calm. Normocephalic skull, EOMI, anicteric sclera Neck is supple, normal trachea, no adenopathy. Lungs are clear, normal rate and effort. Heart is regular, no murmur. Abdomen is distended but mostly non tender. Extremities are free of edema with good pedal and radial pulses. Nephrostomy tube and Sahni have some urine output, the urine is clear. There is no skin rash or lesions. He has normal joints. He can move arms and legs, no facial droop. Normal speech. Objective Imaging CT scan - abdomen: Radiologist's impression: Left lower lobe consolidation, concerning for pneumonia. Recommend follow-up in 1-2 months with chest x-ray to ensure resolution. Moderate right-sided hydroureter and hydronephrosis. The right-sided percutaneous nephrostomy tube has been slightly retracted. Recommend repositioning. Interval decrease in size of the retroperitoneal and pelvic adenopathy. Labs 08/13/23 07:53 08/13/23 07:53 Labs: Laboratory Results - last 24 hr 08/12/23 08/12/23 08/12/23 07:58 10:12 12:18 Lactate 3.0 H 2.3 H 2.6 H 08/12/23 08/12/23 14:18 16:15 Lactate 2.1 1.7 Assessment & Plan Assessment & Plan narrative: 1. Nephrostomy tube malpositioning/malfunction. Present on admission and active. - Still draining urine and urology have already been consulted. IV Invanz to continue for now given the history of ESBL and wait for bed availability for transfer to higher level of care/follow-up by urology 2. Urinary tract infection (history of ESBL). Continue the Invanz initiated in the emergency room 3. LLL pneumonia. Present on admission and active. - Received IV Rocephin/Zithromax in the ED. Monitor closely for now and if O2 saturation remained stable in the mid 90s, will review the need for oral Augmentin versus IV Rocephin/Zithromax. 4. Diabetes mellitus type 2. Present on admission and stable. Confirm and resume the home medications with insulin sliding scale. Hold metformin due to rising creatinine 5. History of atrial fibrillation/pulm embolism. Present on admission and stable. Resume the home Coumadin which will be dosed by pharmacy. Follow INR (1.8 today). 6. Restless leg syndrome resume the home Mirapex. Present on admission and stable. 7. Depression, present on admission and stable. Resume the home Zoloft 8. Coronary artery disease status post angioplasty, present on admission and stable. 9 DVT prophylaxis will be with Coumadin PLAN/DISPO: Continued efforts to transfer for replacement of a nephrostomy tube which is partially occluded. Continue antibiotics for infection. CODE STATUS for now is full but based on previous records was DNR. Will need reassessment during the day team Patient will be admitted under inpatient status. Given the urinary tract infection with leukocytosis/malpositioned nephrostomy tube needing possible procedure, patient meets criteria for inpatient with expected length of stay greater than 2 midnights Time Spent With Patient Time with patient: 30 to 49 minutes with 50% spent counseling/coordinating care Quality MIPS - Admit The patient?s Advance Care plan is not present because I confirmed today that the patient does not wish or was not able to name a surrogate decision maker or provide an Advance Care Plan.: Yes MIPS - Meds 'Current medications' to include all prescriptions, [id number] products, herbals, cannabis/cannabidiol products, and vitamin/mineral/dietary (nutritional) supplements. I have utilized all available resources to obtain, update, or review the patient?s current medications. [If Yes, STOP here]: Yes
[2023-08-13 08:38] LABS: Add Manual Diff / Slide Review NO; Basophils Absolute Auto 0 /uL (0-100); Basophils Percent Auto 0.3 % (0-2); Eosinophils Absolute Auto 100 /uL (0-450); Eosinophils Percent Auto 0.6 % (2-4); Hematocrit 28.7 % (41-53); Hemoglobin 9.5 g/dL (13.5-17.5); Lymphocytes Absolute Auto 1200 /uL (1100-4500); Lymphocytes Percent Auto 8.1 % (25-40); Mean Corpuscular HGB Conc 33.2 % (30-36); Mean Corpuscular Hemoglobin 28.9 PG (26-34); Mean Corpuscular Volume 87.3 fL (80-100); Monocytes Absolute Auto 900 /uL (0-900); Monocytes Percent Auto 5.7 % (3-14); Neutrophils Absolute Auto 12800 /uL (1500-7000); Neutrophils Percent Auto 85.3 % (50-75); Platelet Count 149 X10^3/uL (150-400); Red Blood Cell Count 3.29 X10^6/uL (4.5-5.9); Red Cell Distribution Width 18.1 % (11.6-14.8)
[2023-08-13] MEDS: ONDANSETRON 4 MG/2 ML INJ IV (08:39)
[2023-08-13 08:45] LABS: INR 1.8 (0.9-1.3)
[2023-08-13] MEDS: ERTAPENEM 1 GM in SODIUM CHLORIDE 0.9% 100 ML IV (08:45)
[2023-08-13 08:50] LABS: BUN Creatinine Ratio 18.1 (6-22); Blood Urea Nitrogen 31 mg/dL (9-20); Calcium 8.5 mg/dL (8.4-10.2); Carbon Dioxide 23 mmol/L (22-32); Chloride 104 mmol/L (98-107); Estimated Glomerular Filt Rate 41 mL/min (>60); Glucose 145 mg/dL (80-110); HEMOLYSIS < 15 (0-50); Magnesium 2.1 mg/dL (1.6-2.3); Sodium 136 mmol/L (137-145)
[2023-08-13 08:58] LABS: NT-proBNP (BNP-Adult 18+) 1420 pg/mL (<450)
[2023-08-13 13:13] LABS: INR 1.8 (0.9-1.3); Prothrombin Time 20.7 SECONDS (9.4-12.5)
--- NOTE | 2023-08-13 14:26 | CM.DANOTE ---
Initial DCP Assessment Note Patient is a 73 yo M resident at [facility], multiple co-morbidities, according to H+P : past medical history of prostate cancer with right retroperitoneal mass status post right nephrostomy tube presents with complaint of not feeling well, admitted for management of UTI, LLL pneumonia; DR Ramírez attempting transfer for replacement of Nephrostomy tube. Urology consulted, unsure if that service is available today. PCP: Vandana Hart Payer: [facility]/ [facility] Met w/patient to introduce self and role, kept visit brief. Patient reports he has lived at [facility] x2 years and plans to return after receiving his medical care. Patient aware transfer is being attempted and eager to get an update about this when available. Plan: Transfer to higher level of care JULIA Discharge Planning/Care Management CM Discharge Assessment Start: 08/13/23 14:23 Freq: Status: Active Protocol: Document 08/13/23 14:23 JULIA (Rec: 08/13/23 14:26 JULIA [id number]) Discharge Planning Assessment Assigned Display Trimmer JAYLEN Merino DPOA/Assigned Designee Name leonora Elliott Contact Information [phone] Advance Directives? Yes: POLST Advance Directives on File Yes History Provided By Patient,Medical Record Prior Living Arrangements Assisted Living Household Members none Type of transporation used prior to Relies on Others admit Willing to Return to Facility? Yes: [facility] Independent with ADL's No Is patient alert and oriented? Yes Comment Patient's current baseline at [facility] not assessed Barriers to Discharge No Comment Awaiting transfer for placement of nephrostomy tube that has dislodged. Anticipate Back to [facility] when medically cleared and at functional baseline Discharge Plan Transfer to Higher Level of Care Transportation Arrangement BLS Referrals Initiated None needed
--- NOTE | 2023-08-13 16:31 | PC.NURSE ---
Addendum entered by Minerva Walls R.N. 08/13/23 18:51: Pt returened at 1835 States he feels better. New nephrostomy intact, patent. New Condom cath placed/patent Pt requesting to rest. Call light w/in reach, bed alarm on for pt safety. Continue w/plan of care. Original Note: 1500::Pt escorte by BLS to [facility] for procedure to fix nephrostomy tube CBG 145 & 189. Pt resting quietly prior to transport Condom cath 450cc; nephrostomy 250cc Will await return this late afternoon.
[2023-08-13] MEDS: ATORVASTATIN 20 MG TABLET 40 MG PO (20:37)
[2023-08-13] MEDS: SPIRONOLACTONE 25 MG TABLET PO (20:37)
[2023-08-13] MEDS: GABAPENTIN 600 MG TABLET PO (20:37)
[2023-08-13] MEDS: ROPINIROLE 1 MG TABLET 2 MG PO (20:37)
[2023-08-13] MEDS: INSULIN GLARGINE 100 UNIT/ML 3ML PEN 10 UNIT SUBCUT (20:45)
[2023-08-13] MEDS: hydrOXYzine HCL 25 MG TABLET PO (22:20)
[2023-08-13] MEDS: LORazepam 2 MG/ML INJ 1 MG IV (22:54)
--- NOTE | 2023-08-14 00:35 | PC.NURSE ---
Patient had an unwitnessed, non-injury fall when self- transferring from the chair to the bed. He was heard from the nurses station and found sitting on his bottom next to the bed. Denies pain/denies bumping his head. No injuries noted. Assisted up with gaitbelt and 3PA. Dr. Cantor notified and stated monitor. Call light within reach, bed alarm on for safety.
[2023-08-14] MEDS: ACETAMINOPHEN 325 MG TABLET 650 MG PO (02:16)
[2023-08-14] MEDS: OXYCODONE IR 5 MG TABLET PO (02:16)
[2023-08-14] MEDS: PANTOPRAZOLE DR 40 MG TABLET PO (05:35)
[2023-08-14 06:22] VITALS: BP 142/59; PULSE 60; RESP 16; TEMP 36.2; O2SAT 100
--- NOTE | 2023-08-14 07:43 | PM.PN.1 ---
Subjective Subjective Interval history: He had an anxiety attack last night but was feeling well today. His new percutaneous nephrostomy tube is functioning and he has no residual pain. He denies any dyspnea or confusion. Exam Vital Signs (past 8 hours): - 08/14/23 06:22 Temperature 97.2 F L Pulse Rate 60 Respiratory Rate 16 Blood Pressure 142/59 H Pulse Oximetry 100 Oxygen Delivery Method Room Air Oxygen Flow Rate 0 Narrative Exam Narrative: NAD, fluent speech Lungs clear Heart regular No abdomen distension No leg edema Right percutaneous nephrostomy tube Objective Labs 08/13/23 07:53 08/13/23 07:53 Labs: Laboratory Results - last 24 hr 08/13/23 08/13/23 07:53 12:44 WBC 15.0 H RBC 3.29 L Hgb 9.5 L Hct 28.7 L MCV 87.3 MCH 28.9 MCHC 33.2 RDW 18.1 H Plt Count 149 L Neut % (Auto) 85.3 H Lymph % (Auto) 8.1 L [place] % (Auto) 5.7 Eos % (Auto) 0.6 L Baso % (Auto) 0.3 Neut # (Auto) 89814 H Lymph # (Auto) 1200 [place] # (Auto) 900 Eos # (Auto) 100 Baso # (Auto) 0 PT 21.0 H 20.7 H INR 1.8 H 1.8 H Sodium 136 L Potassium 4.0 Chloride 104 Carbon Dioxide 23 BUN 31 H Creatinine 1.71 H Estimated GFR 41 L BUN/Creatinine Ratio 18.1 Glucose 145 H Calcium 8.5 Magnesium 2.1 NT-Pro-B Natriuret Pep 1420 H PFSH Medical History DVT (deep venous thrombosis) History of left heart catheterization (12/2019) Atrial fibrillation Paroxysmal A-fib RBBB LAFB (left anterior fascicular block) First degree AV block History of transcatheter aortic valve replacement (TAVR) (08/01/18) Sleep apnea CAD (coronary artery disease) Stress incontinence Enlarged lymph node Chronic anticoagulation Androgen deprivation therapy Stress incontinence, male History of radiation therapy Hydronephrosis, right Prostate cancer Osteoarthritis Hypertension Gout Depression History of prostate cancer Arthritis GERD (gastroesophageal reflux disease) Diabetes Congestive heart failure Pacemaker Surgical History AICD (automatic cardioverter/defibrillator) present (12/30/20) Hx of heart artery stent History of back surgery H/O aortic valve replacement Family History Mother Coronary artery disease involving bypass graft of transplanted heart Cancer Hypertension Social History marital status: number of children: 3 household members: none Previous occupational history: retired Smoking Status: Former smoker alcohol intake: never caffeine: Yes Assessment & Plan Assessment & Plan narrative: 1. Nephrostomy tube malpositioning/malfunction. Present on admission and active. - He had a new tube placed at [facility] yesterday. 2. Urinary tract infection (history of ESBL). Present on admission and active. -continue the Invanz (initiated in the emergency room). 3. LLL pneumonia. Present on admission and improved. -Received IV Rocephin/Zithromax in the ED. Monitor closely for now and if O2 saturation remained stable in the mid 90s, will review the need for oral Augmentin versus IV Rocephin/Zithromax. 4. Diabetes mellitus type 2. Present on admission and stable. -Confirm and resume the home medications with insulin sliding scale. Hold metformin due to rising creatinine 5. History of atrial fibrillation/pulmonary embolism. Present on admission and stable. -Resume the home Coumadin which will be dosed by pharmacy. Follow INR (1.8 today). 6. Restless leg syndrome resume the home Mirapex. Present on admission and stable. 7. Depression, present on admission and stable. Resume the home Zoloft 8. Coronary artery disease status post angioplasty, present on admission and stable. DVT prophylaxis will be with Coumadin PLAN/DISPO: Cotn abx for 1-2 days and probable return to his Assisted Living on Wednesday. Time Spent With Patient Time with patient: 30 to 49 minutes with 50% spent counseling/coordinating care
[2023-08-14] MEDS: ERTAPENEM 1 GM in SODIUM CHLORIDE 0.9% 100 ML IV (09:32)
[2023-08-14] MEDS: FERROUS SULFATE 325 MG TABLET PO (09:34)
[2023-08-14] MEDS: GABAPENTIN 600 MG TABLET PO ×2 (09:34→20:43)
[2023-08-14] MEDS: lisinopriL 5 MG TABLET 2.5 MG PO (09:34)
[2023-08-14] MEDS: OXYBUTYNIN 5 MG ER TAB 10 MG PO (09:36)
[2023-08-14] MEDS: FUROSEMIDE 40 MG TABLET PO (09:36)
[2023-08-14] MEDS: PRAMIPEXOLE 0.25 MG TABLET 0.5 MG PO (09:36)
[2023-08-14] MEDS: ROPINIROLE 1 MG TABLET 2 MG PO ×2 (09:37→20:43)
[2023-08-14] MEDS: SPIRONOLACTONE 25 MG TABLET PO ×2 (09:37→20:44)
[2023-08-14] MEDS: SERTRALINE 50 MG TABLET PO (09:37)
[2023-08-14] MEDS: METOPROLOL ER 25 MG TABLET 12.5 MG PO (09:37)
[2023-08-14] MEDS: BICALUTAMIDE 50 MG TABLET PO (09:41)
[2023-08-14] MEDS: ONDANSETRON 4 MG/2 ML INJ IV (10:07)
--- NOTE | 2023-08-14 11:56 | CM.DPC ---
DCP Cont: Per MD, pt was able to be transferred to [facility] last night for new nephrostomy tube placement for treat and return and getting IV-Abx for a couple days as pt high risk ESBL and likely stable for d/c back to [facility] in 1-2 days. PT ordered and pending. SW faxed clinicals to [facility] to review and left msg regarding likely d/c Sun or Wed. Plan: SW to follow closely for coordination with [facility] for plan of pt return and to send PT eval and recommendations once eval completed. JAYLEN Chandra
[2023-08-14 12:00] VITALS: BP 148/63; PULSE 55; RESP 16; TEMP 36.2; O2SAT 97
--- NOTE | 2023-08-14 12:15 | PT.IIE ---
Current Diagnoses Displacement of nephrostomy catheter, initial encounter (08/12/23) Surgical History (Last Reviewed 08/13/23 @ 07:54 by Grant Ramírez MD) AICD (automatic cardioverter/defibrillator) present (12/30/20) H/O aortic valve replacement History of back surgery Hx of heart artery stent Medical History (Last Reviewed 08/13/23 @ 07:54 by Grant Ramírez MD) Androgen deprivation therapy Arthritis Atrial fibrillation CAD (coronary artery disease) Chronic anticoagulation Congestive heart failure Depression Diabetes DVT (deep venous thrombosis) Enlarged lymph node First degree AV block GERD (gastroesophageal reflux disease) Gout History of left heart catheterization (12/2019) History of prostate cancer History of radiation therapy History of transcatheter aortic valve replacement (TAVR) (08/01/18) Hydronephrosis, right Hypertension LAFB (left anterior fascicular block) Osteoarthritis Pacemaker Paroxysmal A-fib Prostate cancer RBBB Sleep apnea Stress incontinence Stress incontinence, male Physical Therapy Inpatient Evaluation/Re-Eval M1 PT/OT-IP Prior Functional Status Start: 08/14/23 13:50 Freq: NEEDED Status: Active Protocol: Document 08/14/23 12:15 AB (Rec: 08/14/23 14:01 AB [id number]) Medical Review Prior Functional Status Medical History Reviewed Yes Communication able to make needs known Mobility and Gait pt stated that he was modified independent with ll mobilities and ambulation using a FWW but lately is needing more assistance due to weakness. pt stated that the weakness is due to his CA Social History Household Members none Living Arrangements Assisted Living Number of Floors (Floors) One Floor Number of Stairs To Enter/Railing? pt lives a [facility] Home Environment Walk in Shower Home Equipment Front Wheel Walker,Shower Seat with Backrest Additional Social History Comment pt has a hospital bed M2 PT-IP Current Condition Start: 08/14/23 13:50 Freq: NEEDED Status: Active Protocol: Document 08/14/23 12:15 AB (Rec: 08/14/23 14:01 AB [id number]) Physical Therapy Current Condition Current Condition Evaluation Date 08/14/23 Treatment Diagnosis sepsis; UTI; difficulty in walking Onset Date 08/12/23 M3 PT-IP Subjective Start: 08/14/23 13:50 Freq: NEEDED Status: Active Protocol: Document 02/24/24 12:15 AB (Rec: 08/14/23 14:01 [id number]) Subjective Physical Therapy Visit Type Type Initial Evaluation Visit Start Time 12:15 Visit Stop Time 12:30 Number of ARTIFICIAL FLOWERS STARCHER Visits 0 Physical Therapy Visit Comments Patient Comments agreeable to do PT M4 PT-IP Mobility and Gait Start: 08/14/23 13:50 Freq: NEEDED Status: Active Protocol: Document 08/14/23 12:15 AB (Rec: 08/14/23 14:01 [id number]) PT-Bed Mobility Assessment Supine to Sit Supine to Sit Standby Assistance Sit to Supine Sit to Supine Standby Assistance PT-Transfer Assessment Sit to and From Stand Sit to and from Stand Standby Assistance,1 Person Assistance,Use of Upper Extremities Equipment Transfer Assistive Device Gait Belt,Front Wheeled Walker Orthotic/Prosthetic Devices or Brace: No Transfers Transfer Destination Bed Transfer Technique Stand Step Pivot Transfer Ability Level of Assist Standby Assistance,1 Person Assistance,Use of Upper Extremities Comments Mobility Comments pt sitting on the chair and agreed to do PT. obtained PLOF and home set up. pt with recent fall here in the hospital and pt stated that he fell because he had an anxiety attack and cannot remember much on how he fell. BP in sittin/57 pt completed sit to stand from chair SBA and step transfer to EOB SBA using fWW. pt completed bed mobility sit<> supine SBA. pt requested to use the toilet. sit to stand from EOB SBA and ambulated to the toilet using fWW SBA to occasional CGA for safety. pt stated that he needed a few minute to use the toilet. call light placed next to pt. nurse came in and informed nurse that pt will be using the toilet for a while. Left pt with nurse. Gait Assessment Gait Gait Assistance Required: Standby Assistance,Contact Guard Assist Distance (Feet) 15 Able to Maintain Weight Bearing Status Yes During Gait Assistive Devices Assistive Device Gait Belt,Front Wheeled Walker Orthotic/Prosthetic Devices or Brace: No Gait Deviations General Gait Pattern Decreased Stride Length, Decreased Feet Clearance Factors Limiting Gait Function Factors Limiting Gait Function Decreased Activity Tolerance, Decreased Strength,Poor Balance,Poor Safety Awareness PT-Balance Assessment Sitting Balance and Reactions Static Sitting Balance Ability Normal Dynamic Sitting Balance Ability Good Standing Balance and Reactions Static Standing Balance Ability Fair Dynamic Standing Balance Ability Fair Device Used FWW M5 PT-IP Objective Assessments Start: 08/14/23 13:50 Freq: NEEDED Status: Active Protocol: Document 08/14/23 12:15 AB (Rec: 08/14/23 14:01 AB [id number]) Orientation Orientation/Cognition Level of Alertness Alert Orientation Name,Situation Safety Awareness Decreased Safety Awareness Comments with slight confusion Gross Range of Motion Lower Extremity ROM Assessment Within Functional Limits Strength Lower Extremity Strength Assessment Within Functional Limits Muscle Tone Muscle Tone WNL Yes M6 PT-IP Treatment Start: 08/14/23 13:50 Freq: NEEDED Status: Active Protocol: Document 08/14/23 12:15 AB (Rec: 08/14/23 14:01 AB [id number]) Physical Therapy Treatment Education Education Provided Safety M7 PT-IP Assessment and Plan Start: 08/14/23 13:50 Freq: NEEDED Status: Active Protocol: Document 08/14/23 12:15 AB (Rec: 08/14/23 14:01 AB [id number]) PT Summary Assessment and Plan Potential Rehabilitation Potential Fair Status of Condition at Evaluation Evolving Summary Impairments Pain,ROM,Strength,Balance, Coordination,Sensation,Tone, Cognition,Bed Mobility, Transfers,Gait,Activity Tolerance Assessment Summary pt is a 73 y/o M who presented to the ED for c/o abdominal pain, nausea and vomiting. pt admitted to the hospital for sepsis, UTI and PNA. pt requiring SBA to CGA with mobility using FWW. pt with slight confusion and decrease safety awareness. pt lives at [facility] and stated that he has assistance in the [place] if needed. pt may go back to [facility] when medically stable. pt may benefit from HHPT. Goals Bed Mobility Goal Independent Transfer Goal Independent,Front Wheeled Walker Gait Goal Independent,Front Wheel Walker Gait Distance 100 Days to Meet Goals 10 Frequency of Treatment Frequency Of Treatment Once a Day Treatment Plan Physical Therapy Treatment Plan Bed Mobility Training,Transfer Training,Gait Training, Therapeutic Exercise,Balance Retraining,Discharge Planning, Hot or Cold Pack,Neuromuscular Re-ed,Coordination Retraining Precautions Other Precautions contact precautions; falls Recommendations To Nursing Amount of Assist Needed 1 Person Assist Discharge Recommendations PT Discharge Recommendations Home with 11/01 Assist Available,Home Health Transportation Needs at Discharge Private Vehicle,Wheelchair/ Cabulance
[2023-08-14] MEDS: INSULIN LISPRO 100 UNIT/ML 3ML VIAL SUBCUT (12:56)
[2023-08-14 16:00] VITALS: BP 135/56; PULSE 61; RESP 18; TEMP 36.4; O2SAT 96
--- NOTE | 2023-08-14 18:16 | PC.NURSE ---
Flushed patient's nephrostomy tube at 1600 with 10cc of saline. discovered that the tube has a very slow leak, between the blue tube connecting to the clear tube. provider notified. nephrostomy draining clear yellow fluid, no clots.
[2023-08-14 20:00] VITALS: BP 119/39; PULSE 63; RESP 18; TEMP 36.6; O2SAT 94
[2023-08-14] MEDS: ATORVASTATIN 20 MG TABLET 40 MG PO (20:35)
[2023-08-14] MEDS: HYDROCODONE/ACET 5/325 TABLET 1 TAB PO (20:43)
[2023-08-14] MEDS: INSULIN GLARGINE 100 UNIT/ML 3ML PEN 10 UNIT SUBCUT (20:47)
[2023-08-14] MEDS: LOPERAMIDE 2 MG CAPSULE PO (22:42)
[2023-08-15] VITALS (7 sets, daily range): BP systolic 116–156; BP diastolic 45–62; PULSE 30–61; RESP 16; TEMP 35.9–36.6; O2SAT 94–97
[2023-08-15] MEDS: HYDROCODONE/ACET 5/325 TABLET 2 TAB PO ×2 (01:06→20:50)
--- NOTE | 2023-08-15 01:11 | PC.NURSE ---
Nephrostomy tube flushed at midnight, continues to have a small leak. Draining clear, yellow liquid, no clots.
[2023-08-15] MEDS: PANTOPRAZOLE DR 40 MG TABLET PO (05:43)
--- NOTE | 2023-08-15 07:55 | PM.PN.1 ---
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 He has had a percutaneous nephrostomy tube in place which was partially dislodged at the time of his admission. This was complicated by a recurrent ESBL urinary tract infection. He stays at a local assisted living, [facility]. They will likely be able to accept him back on Wednesday, he will likely require a ongoing ertapenem for least 7 days. He was sent to [facility] for an exchange of percutaneous tube on 08/13. This is functioning well. S: He does not feel quite as well today. He had a few episodes of diarrhea yesterday and 1 this morning. We will check a C diff toxin. He is also having some leaking around his new percutaneous tube but this seems to be improving. He would like to go to the rehab side of [facility] which I believe is [facility] when he discharges. Exam Vital Signs (past 8 hours): - 08/15/23 00:52 08/15/23 04:00 Temperature 97.2 F L 96.7 F L Pulse Rate 60 30 L Respiratory Rate 16 16 Blood Pressure 145/53 H 132/62 Pulse Oximetry 95 94 Oxygen Flow Rate 0 0 Oxygen Delivery Method Room Air Oxygen Flow Rate 0 Narrative Exam Narrative: NAD, alert and oriented. Fluent speech. Flat affect. Lungs are clear, normal rate and effort. Heart is regular, no murmur gallop or rub. Abdomen is soft, non distended. Extremities are free of edema. Right percutaneous nephrostomy drain. Dressing is fairly dry today. Objective Labs 08/13/23 07:53 08/13/23 07:53 Labs: Laboratory Results - last 24 hr 08/12/23 06:30 Urine Color Yellow Urine Appearance Sl cloudy Urine pH 6.5 Ur Specific [place] 1.010 Urine Protein 1+ H Urine Glucose (UA) 1+ H Urine Ketones Negative Urine Occult Blood 2+ H Urine Nitrate Positive H Urine Bilirubin Negative Urine Urobilinogen 0.2 Ur Leukocyte Esterase 3+ H Urine RBC 1-5/hpf Urine WBC 5-10/hpf H Ur Squamous Epith Cells 1-5 /hpf Urine Bacteria Many (>30) H D Ur Culture Indicated? Specimen cultured Vol Urine Centrifuged 10ml (spun) [facility] Medical History DVT (deep venous thrombosis) History of left heart catheterization (12/2019) Atrial fibrillation Paroxysmal A-fib RBBB LAFB (left anterior fascicular block) First degree AV block History of transcatheter aortic valve replacement (TAVR) (08/01/18) Sleep apnea CAD (coronary artery disease) Stress incontinence Enlarged lymph node Chronic anticoagulation Androgen deprivation therapy Stress incontinence, male History of radiation therapy Hydronephrosis, right Prostate cancer Osteoarthritis Hypertension Gout Depression History of prostate cancer Arthritis GERD (gastroesophageal reflux disease) Diabetes Congestive heart failure Pacemaker Surgical History AICD (automatic cardioverter/defibrillator) present (12/30/20) Hx of heart artery stent History of back surgery H/O aortic valve replacement Family History Mother Coronary artery disease involving bypass graft of transplanted heart Cancer Hypertension Social History marital status: number of children: 3 household members: none Previous occupational history: retired Smoking Status: Former smoker alcohol intake: never caffeine: Yes Assessment & Plan Assessment & Plan narrative: 1. Nephrostomy tube malpositioning/malfunction. Present on admission and resolved. - He had a new tube placed at [facility] 08/13. 2. Urinary tract infection (history of ESBL). Present on admission and active. -continue the Invanz (initiated in the emergency room), shoot for 7 days. May need access. 3. LLL pneumonia (possible, no symptoms). Present on admission and improved. -Received IV Rocephin/Zithromax in the ED. Monitor closely for now and if O2 saturation remained stable in the mid 90s, will review the need for oral Augmentin versus IV Rocephin/Zithromax. 4. Diabetes mellitus type 2. Present on admission and stable. -Confirm and resume the home medications with insulin sliding scale. Hold metformin due to rising creatinine 5. History of atrial fibrillation/pulmonary embolism. Present on admission and stable. -Resume the home Coumadin which will be dosed by pharmacy. Follow INR (1.8 today). 6. Restless leg syndrome resume the home Mirapex. Present on admission and stable. 7. Depression, present on admission and stable. Resume the home Zoloft 8. Coronary artery disease status post angioplasty, present on admission and stable. 9. New diarrhea, new and active. Additional plan: -rule out C diff toxin. -if he has not feeling well tomorrow, may require a 2nd CT scan to confirm position of percutaneous drain. DVT prophylaxis will be with Coumadin PLAN/DISPO: Cont abx for 7 days and probable return to his Assisted Living ([facility]) on Wednesday. Time Spent With Patient Time with patient: 30 to 49 minutes with 50% spent counseling/coordinating care
[2023-08-15] MEDS: INSULIN LISPRO 100 UNIT/ML 3ML VIAL SUBCUT ×3 (07:58→17:02)
[2023-08-15] MEDS: ERTAPENEM 1 GM in SODIUM CHLORIDE 0.9% 100 ML IV (07:58)
[2023-08-15] MEDS: GABAPENTIN 600 MG TABLET PO ×2 (08:01→20:44)
[2023-08-15] MEDS: OXYBUTYNIN 5 MG ER TAB 10 MG PO (08:01)
[2023-08-15] MEDS: SERTRALINE 50 MG TABLET PO (08:01)
[2023-08-15] MEDS: PRAMIPEXOLE 0.25 MG TABLET 0.5 MG PO (08:01)
[2023-08-15] MEDS: lisinopriL 5 MG TABLET 2.5 MG PO (08:01)
[2023-08-15] MEDS: FERROUS SULFATE 325 MG TABLET PO (08:01)
[2023-08-15] MEDS: FUROSEMIDE 40 MG TABLET PO (08:01)
[2023-08-15] MEDS: ROPINIROLE 1 MG TABLET 2 MG PO ×2 (08:02→20:43)
[2023-08-15] MEDS: BICALUTAMIDE 50 MG TABLET PO (08:02)
[2023-08-15] MEDS: SPIRONOLACTONE 25 MG TABLET PO ×2 (08:02→20:43)
[2023-08-15] MEDS: METOPROLOL ER 25 MG TABLET 12.5 MG PO (08:02)
[2023-08-15] MEDS: LOPERAMIDE 2 MG CAPSULE PO ×2 (08:02→20:49)
--- NOTE | 2023-08-15 08:19 | PC.NURSE ---
Addendum entered by Mer Parry R.N. 08/15/23 16:31: Nephrostomy tube putting out clear, yellow urine. Addendum entered by Mer Parry R.N. 08/15/23 12:02: Patients blood sugar is 183, 1u of insulin given. Patient is going to be eating some lunch and has been moving well with his walker. Addendum entered by Mer Parry R.N. 08/15/23 09:31: Patient tolerated his iv antibiotic and will now be working with physical therapy. He took a brief nap after breakfast. Original Note: Assess-Patient is alert and oriented x4. He has been up to the bathroom and had a loose stool. Given immodium, this started yesterday. Patient is up with one person sba and walker. He has a nephrostomy tube to r.side of kidney with some drainage in bag. Patient is sitting up in his chair now and tolerating breakfast. His blood sugar was 158, given 1u of insulin. He denies pain at this time and is enjoying his breakfast.
--- NOTE | 2023-08-15 09:39 | PT.IPTN ---
Current Diagnoses Displacement of nephrostomy catheter, initial encounter (08/12/23) Physical Therapy Treatment Note M2 PT-IP Current Condition Start: 08/14/23 13:50 Freq: NEEDED Status: Active Protocol: Document 08/14/23 12:15 AB (Rec: 08/14/23 14:01 AB [id number]) Physical Therapy Current Condition Current Condition Evaluation Date 08/14/23 Treatment Diagnosis sepsis; UTI; difficulty in walking Onset Date 08/12/23 M3 PT-IP Subjective Start: 08/14/23 13:50 Freq: NEEDED Status: Active Protocol: Document 08/15/23 09:27 KS (Rec: 08/15/23 11:01 KS [id number]) Subjective Physical Therapy Visit Type Type Treatment Note Visit Start Time 09:27 Visit Stop Time 09:39 Number of STATION USHER Visits 1 M4 PT-IP Mobility and Gait Start: 08/14/23 13:50 Freq: NEEDED Status: Active Protocol: Document 08/15/23 09:27 KS (Rec: 08/15/23 11:01 KS [id number]) PT-Bed Mobility Assessment Supine to Sit Supine to Sit Standby Assistance Sit to Supine Sit to Supine Standby Assistance PT-Transfer Assessment Sit to and From Stand Sit to and from Stand Standby Assistance,1 Person Assistance,Use of Upper Extremities Equipment Transfer Assistive Device Gait Belt,Front Wheeled Walker Orthotic/Prosthetic Devices or Brace: No Transfers Transfer Destination Bed,Toilet Transfer Ability Level of Assist Standby Assistance,1 Person Assistance,Use of Upper Extremities Comments Mobility Comments Pt in bed upon arrival. SBA for sup<>Sit, scooting, and sit<>stand. Upon standing pt requests to use toilet. Reports ongoing diarrhea this AM. After BM, pt requested to go back to bed and reports he is unable to complete further PT. Slow gait w/ FWW, flexed trunk. Left w/ all needs in reach. Gait Assessment Gait Gait Assistance Required: Standby Assistance,Contact Guard Assist Distance (Feet) 30 Able to Maintain Weight Bearing Status Yes During Gait Assistive Devices Assistive Device Gait Belt,Front Wheeled Walker Orthotic/Prosthetic Devices or Brace: No Gait Deviations General Gait Pattern Decreased Stride Length, Decreased Feet Clearance Factors Limiting Gait Function Factors Limiting Gait Function Decreased Activity Tolerance, Decreased Strength,Poor Balance,Poor Safety Awareness Comments Gait Comments See mobility. PT-Balance Assessment Sitting Balance and Reactions Static Sitting Balance Ability Normal Dynamic Sitting Balance Ability Good Standing Balance and Reactions Static Standing Balance Ability Fair Dynamic Standing Balance Ability Fair Device Used FWW M5 PT-IP Objective Assessments Start: 08/14/23 13:50 Freq: NEEDED Status: Active Protocol: Document 08/14/23 12:15 AB (Rec: 08/14/23 14:01 AB [id number]) Orientation Orientation/Cognition Level of Alertness Alert Orientation Name,Situation Safety Awareness Decreased Safety Awareness Comments with slight confusion Gross Range of Motion Lower Extremity ROM Assessment Within Functional Limits Strength Lower Extremity Strength Assessment Within Functional Limits Muscle Tone Muscle Tone WNL Yes M6 PT-IP Treatment Start: 08/14/23 13:50 Freq: NEEDED Status: Active Protocol: Document 08/15/23 09:27 KS (Rec: 08/15/23 11:01 KS [id number]) Physical Therapy Treatment Education Education Provided Safety M7 PT-IP Assessment and Plan Start: 08/14/23 13:50 Freq: NEEDED Status: Active Protocol: Document 08/15/23 09:27 KS (Rec: 08/15/23 11:01 KS [id number]) PT Summary Assessment and Plan Potential Rehabilitation Potential Fair Summary Impairments Pain,ROM,Strength,Balance, Coordination,Sensation,Tone, Cognition,Bed Mobility, Transfers,Gait,Activity Tolerance Progress Towards Goals Slow Progress due to Medical Issues,Slow Progress due to Activity Tolerance Assessment Summary Pt not feeling well this AM and w/ decreased activity tolerance due to diarrhea and fatigue. Able to perform bed mobility, transfers, and ambulation usinbg FWW all SBA. pt lives at [facility] and stated that he has assistance in the [facility] if needed. pt may go back to [facility] when medically stable. pt may benefit from HHPT. Goals Bed Mobility Goal Independent Transfer Goal Independent,Front Wheeled Walker Gait Goal Independent,Front Wheel Walker Gait Distance 100 Days to Meet Goals 10 Frequency of Treatment Frequency Of Treatment Once a Day Treatment Plan Physical Therapy Treatment Plan Bed Mobility Training,Transfer Training,Gait Training, Therapeutic Exercise,Balance Retraining,Discharge Planning, Hot or Cold Pack,Neuromuscular Re-ed,Coordination Retraining Precautions Other Precautions contact precautions; falls Recommendations To Nursing Amount of Assist Needed 1 Person Assist Discharge Recommendations PT Discharge Recommendations Home with 11/01 Assist Available,Home Health Transportation Needs at Discharge Private Vehicle,Wheelchair/ Cabulance
[2023-08-15 10:13] LABS: Hematocrit 27.9 % (41-53); Hemoglobin 9.5 g/dL (13.5-17.5); Mean Corpuscular HGB Conc 34.2 % (30-36); Mean Corpuscular Volume 84.8 fL (80-100); Platelet Count 175 X10^3/uL (150-400); Red Blood Cell Count 3.29 X10^6/uL (4.5-5.9); Red Cell Distribution Width 17.5 % (11.6-14.8); White Blood Cell Count 7.8 X10^3/uL (4.5-11.0)
[2023-08-15 10:24] LABS: BUN Creatinine Ratio 15.6 (6-22); Blood Urea Nitrogen 22 mg/dL (9-20); Calcium 8.6 mg/dL (8.4-10.2); Carbon Dioxide 20 mmol/L (22-32); Chloride 105 mmol/L (98-107); Estimated Glomerular Filt Rate 52 mL/min (>60); Glucose 201 mg/dL (80-110); HEMOLYSIS < 15 (0-50); Potassium 3.5 mmol/L (3.4-5.1); Sodium 136 mmol/L (137-145)
--- NOTE | 2023-08-15 10:33 | CM.DPC ---
Addendum entered by JAYLEN Chandra 08/15/23 14:03: ADD: Per [facility] admissions, they could accept pt medically but currently have 6 COVID+ pts in-house that are in isolation and this limits their room availability for pt's need for isolation due to his ESBL and they will not know until the morning Mon 08/16 after admin and ELISA recommendations on if they should still accept new admissions at this time. SW made referrals to [facility], [facility], and [facility] as backups in case [facility] cannot accept. Per [facility], pt has been to their facility before and they feel they could accept him but will check with their billing dept tomorrow Mon to confirm no outstanding debt from prior stays. BF Original Note: DCP SNF Planning: Per MD, pt making progress and started on Ertapenem for ESBL for total of 7 days and may be stable for d/c to SNF for IV-Abx tomorrow pending progress unless pt continues to feel poorly then might order CT scan to confirm adequate placement with new nephrostomy tube. Per PT, pt could likely d/c back to [facility] at d/c but could benefit from daily PT/OT. SW met bedside with pt and explained role and he is aware of need for 7 days IV-Abx and agreeable to SNF and states he has been to [facility] a few times and preference is [facility] for IV-Abx before return to [place]. SW called [facility] admissions and made initial referral and they confirm they have had pt at their facility before and aware they will need to get [facility] auth for SNF. SW attempted to leave a msg for [place] [facility] construction code administrator with update but unclear if the voicemail was accepted on their phone system. PASRR done but needs MD signature for exempted hospital discharge. Plan: SW to follow closely for [facility] review to confirm they can accept and possible submission for [facility] SNF auth and any further needs. JAYLEN Chandra
[2023-08-15 16:40] LABS: Clostridium Difficile Tox PCR Negative for C. diff (Negative)
[2023-08-15] MEDS: ATORVASTATIN 20 MG TABLET 40 MG PO (20:44)
[2023-08-15] MEDS: INSULIN GLARGINE 100 UNIT/ML 3ML PEN 10 UNIT SUBCUT (20:44)
[2023-08-16] MEDS: HYDROCODONE/ACET 5/325 TABLET 2 TAB PO ×2 (02:22→20:30)
[2023-08-16 04:55] VITALS: BP 126/55; PULSE 60; RESP 16; TEMP 36.1; O2SAT 94
[2023-08-16 04:59] LABS: BUN Creatinine Ratio 14.9 (6-22); Blood Urea Nitrogen 20 mg/dL (9-20); Calcium 8.8 mg/dL (8.4-10.2); Carbon Dioxide 22 mmol/L (22-32); Chloride 105 mmol/L (98-107); Estimated Glomerular Filt Rate 55 mL/min (>60); Glucose 139 mg/dL (80-110); HEMOLYSIS < 15 (0-50); Potassium 3.4 mmol/L (3.4-5.1); Sodium 137 mmol/L (137-145)
[2023-08-16] MEDS: PANTOPRAZOLE DR 40 MG TABLET PO (05:12)
[2023-08-16 08:00] VITALS: BP 128/57; PULSE 60; RESP 18; TEMP 35.9; O2SAT 97
[2023-08-16] MEDS: GABAPENTIN 600 MG TABLET PO ×2 (08:54→20:30)
[2023-08-16] MEDS: FUROSEMIDE 40 MG TABLET PO (08:56)
[2023-08-16] MEDS: SPIRONOLACTONE 25 MG TABLET PO ×2 (08:56→20:31)
[2023-08-16] MEDS: PRAMIPEXOLE 0.25 MG TABLET 0.5 MG PO (08:56)
[2023-08-16] MEDS: lisinopriL 5 MG TABLET 2.5 MG PO (08:56)
[2023-08-16] MEDS: METOPROLOL ER 25 MG TABLET 12.5 MG PO (08:56)
[2023-08-16] MEDS: SERTRALINE 50 MG TABLET PO (08:56)
[2023-08-16] MEDS: FERROUS SULFATE 325 MG TABLET PO (08:56)
[2023-08-16] MEDS: ROPINIROLE 1 MG TABLET 2 MG PO ×2 (08:56→20:30)
[2023-08-16] MEDS: ERTAPENEM 1 GM in SODIUM CHLORIDE 0.9% 100 ML IV (08:57)
[2023-08-16] MEDS: OXYBUTYNIN 5 MG ER TAB 10 MG PO (08:57)
[2023-08-16] MEDS: INSULIN LISPRO 100 UNIT/ML 3ML VIAL SUBCUT ×2 (08:57→17:27)
--- NOTE | 2023-08-16 08:57 | PT.IPTN ---
Current Diagnoses Displacement of nephrostomy catheter, initial encounter (08/12/23) Physical Therapy Treatment Note M2 PT-IP Current Condition Start: 08/14/23 13:50 Freq: NEEDED Status: Active Protocol: Document 08/16/23 08:47 SP (Rec: 08/16/23 11:51 SP [id number]) Physical Therapy Current Condition Current Condition Evaluation Date 08/14/23 Treatment Diagnosis sepsis; UTI; difficulty in walking Onset Date 08/12/23 M3 PT-IP Subjective Start: 08/14/23 13:50 Freq: NEEDED Status: Active Protocol: Document 08/16/23 08:47 SP (Rec: 08/16/23 11:51 SP [id number]) Subjective Physical Therapy Visit Type Type Treatment Note Visit Start Time 08:47 Visit Stop Time 08:57 Number of SHAPER HAND Visits 2 Physical Therapy Visit Comments Patient Comments Pt agreeable to working with PT. Therapy Pain Assessment Pain Present Pain Present Denied Pain M4 PT-IP Mobility and Gait Start: 08/14/23 13:50 Freq: NEEDED Status: Active Protocol: Document 08/16/23 08:47 SP (Rec: 08/16/23 11:51 SP [id number]) PT-Transfer Assessment Sit to and From Stand Sit to and from Stand Independent,Standby Assistance ,Use of Upper Extremities Equipment Transfer Assistive Device Gait Belt,Front Wheeled Walker ,4 Wheeled Walker Orthotic/Prosthetic Devices or Brace: No Transfers Transfer Destination Bed,Chair Transfer Technique pt ambulated with FWW, 4WW Transfer Ability Level of Assist Standby Assistance,Use of Upper Extremities Comments Mobility Comments Pt seated at EOB upon arrival with nursing in room. Pt STS / c FWW SBA, ed safety mgt catheter, SHAPER HAND supported mgt pt forgot left on bed. Pt gait around room SBA 30 ft, cues for upright posturing but challenge kyphosis structure. [facility] mgt acquired 4WW, pt gait around room and back to chair 2nd lap good positioning and proper use of brake mgt turns and back up to chair lock prior to sit. Heavy BUE WB on chair arms to sit due to decreased strengthen good slow grade. Pt required seated rest after 2laps due to decreased endurance not getting around room with staff as much yet. Pt reports has staff can call if needed at [facility]. Gait Assessment Gait Gait Assistance Required: Standby Assistance Distance (Feet) 60 Able to Maintain Weight Bearing Status Yes During Gait Assistive Devices Assistive Device Gait Belt,Front Wheeled Walker ,4 Wheeled Walker Orthotic/Prosthetic Devices or Brace: No Gait Deviations General Gait Pattern Flexed Trunk Factors Limiting Gait Function Factors Limiting Gait Function Decreased Activity Tolerance, Decreased Strength Comments Gait Comments see mobility comments Stair Climbing Assessment Comments Stair Climbing Comments no stairs at [facility] needed to assess. PT-Balance Assessment Sitting Balance and Reactions Static Sitting Balance Ability Normal Dynamic Sitting Balance Ability Normal Standing Balance and Reactions Static Standing Balance Ability Normal Dynamic Standing Balance Ability Good Device Used FWW & 4WW M5 PT-IP Objective Assessments Start: 08/14/23 13:50 Freq: NEEDED Status: Active Protocol: Document 08/14/23 12:15 AB (Rec: 08/14/23 14:01 AB [id number]) Orientation Orientation/Cognition Level of Alertness Alert Orientation Name,Situation Safety Awareness Decreased Safety Awareness Comments with slight confusion Gross Range of Motion Lower Extremity ROM Assessment Within Functional Limits Strength Lower Extremity Strength Assessment Within Functional Limits Muscle Tone Muscle Tone WNL Yes M6 PT-IP Treatment Start: 08/14/23 13:50 Freq: NEEDED Status: Active Protocol: Document 08/16/23 08:47 SP (Rec: 08/16/23 11:51 SP [id number]) Physical Therapy Treatment Education Education Provided Safety M7 PT-IP Assessment and Plan Start: 08/14/23 13:50 Freq: NEEDED Status: Active Protocol: Document 08/16/23 08:47 SP (Rec: 08/16/23 11:51 SP [id number]) PT Summary Assessment and Plan Potential Rehabilitation Potential Excellent Status of Condition at Evaluation Evolving Summary Impairments Pain,ROM,Strength,Balance, Coordination,Sensation,Tone, Cognition,Bed Mobility, Transfers,Gait,Activity Tolerance Progress Towards Goals Slow Progress due to Medical Issues,Slow Progress due to Activity Tolerance Assessment Summary Pt is SBA using 4WW, safe and stable with good brake mgt and proper use. Cues for mgt of catheter, little slower pacing during gait mgt and low endurance but progressing gait around room, needs seated rest for recovery. pt lives at [facility] and stated that he has assistance in the [facility] if needed. pt may go back to [facility] when medically stable. pt may benefit from HHPT. Goals Bed Mobility Goal Independent Transfer Goal Independent,Front Wheeled Walker Gait Goal Independent,Front Wheel Walker Gait Distance 100 Days to Meet Goals 10 Frequency of Treatment Frequency Of Treatment Once a Day Treatment Plan Physical Therapy Treatment Plan Bed Mobility Training,Transfer Training,Gait Training, Therapeutic Exercise,Balance Retraining,Discharge Planning, Hot or Cold Pack,Neuromuscular Re-ed,Coordination Retraining Other Recommendations and Next Treatment Gait further distance /c 4WW, Focus standing balance activities. Precautions Other Precautions contact precautions; falls Recommendations To Nursing Amount of Assist Needed Standby Assistance Discharge Recommendations PT Discharge Recommendations Home with 11/01 Assist Available,Home Health Transportation Needs at Discharge Private Vehicle,Wheelchair/ Cabulance
--- NOTE | 2023-08-16 09:24 | PC.NURSE ---
Addendum entered by Mer Parry R.N. 08/16/23 12:51: Waiting on a ride for patient, he ate some lunch and his blood sugar was 155. He refused his 1u of insulin. He is to discharge to [facility] today. Original Note: Patient is sitting up in his chair and comfortable. Blood Sugar this morning 139, 1u of insulin given. He worked with physical therapy and tolerated well. Up in the chair until his iv antibiotic is done and then patient would like to go to bed for a nap.
[2023-08-16] MEDS: BICALUTAMIDE 50 MG TABLET PO (09:32)
[2023-08-16] MEDS: SODIUM CHLORIDE 0.9% FLUSH 10 ML IV ×2 (09:32→20:18)
--- NOTE | 2023-08-16 10:41 | CM.DPC ---
Addendum entered by JAYLEN Chandra 08/16/23 15:47: ADD: [facility] transport did not show at 1200, call placed and they state [facility] did not confirm transport at 1200 and they assumed no transport needed. No other openings today. SW left msg for pt's Dtr to see if she can transport. TIEN confirmed pt has Medicaid transport benefits and completed Medicaid form and faxed and they called back stating [facility] can transport at 1530 today. TIEN updated Kasey at [facility] and she states their RN willing to stay late for the admission but 1530 latest they can accept for transport time. RN called report and pt ready for d/c and Kasey at [facility] confirms she received the d/c packet (PASRR, med list, scripts, d/c summ, orders). TIEN updated RN, SUSSY, balance weigher. BF Addendum entered by JAYLEN Chandra 08/16/23 11:20: ADD: Return call from Kasey at [facility] and only available cabulance time today is with [facility] transport at 1200. agreeable to write discharge and confirmed midline placed successfully. ERASTO Fitzgerald faxed PASRR, signed med list, scripts to [facility] to review and awaiting orders and d/c summ to be signed. TIEN met bedside with pt and updated on [facility] acceptance and insurance auth and he confirms he's agreeable with [facility] but wants to talk to the doctor about his nephrostomy tube ongoing leakage before he feels stable with discharging to SNF today. TIEN updated MD and he kindly is meeting bedside with pt now. RN, SUSSY, balance weigher updated. BF Original Note: DCP SNF Planning: Per , midline order placed for today and then will be medically stable to d/c to SNF for IV-Abx. SHIPPING ROOM SUPERVISOR ambulated pt in room with FWW and 4WW and could benefit from some ongoing strengthening. PADILLA KAMARA bedside placing midline now. Kasey from [facility] called and confirmed she received insurance auth for SNF and determining if they can accept today. signed PASRR and TIEN faxed to [facility] to review for exempted hospital discharge. Plan: SW to follow closely for confirmation if [facility] can accept today or tomorrow and to update pt bedside as he was getting midline placed currently. JAYLEN Chandra
[2023-08-16] MEDS: POTASSIUM CHLORIDE 20 MEQ TAB 40 MEQ PO (10:42)
--- NOTE | 2023-08-16 11:27 | P.DS_ITS ---
History of Present Illness History of Present Illness Date Patient Seen: 08/16/23 Chief complaint: new onset vomiting Narrative: From Night Doctor: 73 years old male with a past medical history of prostate cancer with right retroperitoneal mass status post right nephrostomy tube, ESBL UTI, hypertension, coronary artery disease, chronic respiratory failure, atrial fibrillation status post AICD on warfarin, aortic stenosis status post TAVR, diabetes mellitus type 2, GERD and multiple other medical issues was brought in from assisted facility for abdominal pain with nausea and vomiting. He woke up around 2 AM yesterday with nausea and vomiting and abdominal discomfort. Subsequent workup in the ED revealed a white count of 16.2 with a hemoglobin of 11.6. Viral screen was negative. Urine was positive for many bacteria. Lactic acid was 3.0 chest x- ray shows multifocal left lower lobe infiltrate in the left pleural effusion and a CT abdomen showed possible malpositioning of the nephrostomy tube. Patient was given IV ertapenem in addition to Rocephin given the history of ESBL UTI in addition to IV fluids while in the renal function/lactic acidosis monitor. His care was discussed with Dr. Barker on-call urology at [facility]. Patient was accepted for transfer but due to lack of immediate bed availability, patient has been admitted to the medical floor pending transfer. Currently does complain of abdominal discomfort but slightly better than yesterday and nephrostomy tube is draining urine. Additional history:. He states he just does not feel well. He has been staying in an assisted living recently. He is unsure who his urologist is. He has having a fair amount of flank pain associated with his nephrostomy tube. He also has intermittent nausea and dry heaving. He denies any fevers or chills. He has been constipated he also denies any dyspnea or chest pain. Discharge Providers Provider Date of admission: 08/12/23 23:40 Discharge Date: 08/16/23 Primary care physician: Vandana Hart MD Consults: 08/13/23 03:14 Consult to Pharmacy Routine Comment: dose ertapenem 08/14/23 10:21 Consult to Physical Therapy Evaluate & Treat Comment: Physician Instructions: Evaluate and Treat Discharge provider: Jamaal Bryant DO Summary Time Spent with Patient Time spent: Greater than 30 minutes Exam Vital Signs (past 8 hours): - 08/16/23 04:55 08/16/23 08:00 Temperature 96.9 F L 96.6 F L Pulse Rate 60 60 Respiratory Rate 16 18 Blood Pressure 126/55 L 128/57 L Pulse Oximetry 94 97 Oxygen Flow Rate 0 0 Oxygen Delivery Method Room Air Oxygen Flow Rate 0 Narrative Exam Narrative: NAD, alert and oriented. Fluent speech. Flat affect. Lungs are clear, normal rate and effort. Heart is regular, no murmur gallop or rub. Abdomen is soft, non distended. Extremities are free of edema. Right percutaneous nephrostomy drain. Dressing is fairly dry today. Objective Labs 08/15/23 10:05 08/16/23 04:10 Labs: Laboratory Results - last 24 hr 08/15/23 08/16/23 15:49 04:10 Sodium 137 Potassium 3.4 Chloride 105 Carbon Dioxide 22 BUN 20 Creatinine 1.34 H Estimated GFR 55 L BUN/Creatinine Ratio 14.9 Glucose 139 H Calcium 8.8 C. difficile Tox (PCR) Negative for c. diff [facility] Medical History DVT (deep venous thrombosis) History of left heart catheterization (12/2019) Atrial fibrillation Paroxysmal A-fib RBBB LAFB (left anterior fascicular block) First degree AV block History of transcatheter aortic valve replacement (TAVR) (08/01/18) Sleep apnea CAD (coronary artery disease) Stress incontinence Enlarged lymph node Chronic anticoagulation Androgen deprivation therapy Stress incontinence, male History of radiation therapy Hydronephrosis, right Prostate cancer Osteoarthritis Hypertension Gout Depression History of prostate cancer Arthritis GERD (gastroesophageal reflux disease) Diabetes Congestive heart failure Pacemaker Surgical History AICD (automatic cardioverter/defibrillator) present (12/30/20) Hx of heart artery stent History of back surgery H/O aortic valve replacement Family History Mother Coronary artery disease involving bypass graft of transplanted heart Cancer Hypertension Social History marital status: number of children: 3 household members: none Previous occupational history: retired Smoking Status: Former smoker alcohol intake: never caffeine: Yes Discharge Plan Discharge Plan Patient Disposition: SNF Transfer to: [facility] Provider Discharge Comment: 73 M admitted with an ESBL E. coli UTI. To complete treatment with 3 more days of ertapenem after discharge at SNF. Patient does report leaking around his nephrostomy tube, and overnight there was wetness, no leaking found this morning. If leaking continues, recommend follow up with outpatient urology as soon as possible. Discharge orders & Medications Prescriptions: New ertapenem 1 gram recon soln 1 g IV Q24H 3 Days Qty: 3 0RF Continued acetaminophen 325 mg Tablet 650 mg PO Q4H PRN (Reason: pain) atorvastatin 40 mg Tablet 40 mg PO BEDTIME Antacid (calcium carbonate) 215 mg calcium (500 mg) Tablet,Chewable 500 mg DAILY Rx Instructions: AM furosemide 40 mg Tablet 40 mg PO DAILY gabapentin 300 mg Tablet 600 mg PO BID ferrous sulfate 325 mg (65 mg iron) Tablet 325 mg PO DAILY metoprolol succinate 25 mg Tablet Extended Release 24 Hr 12.5 mg PO DAILY Rx Instructions: Hold for SBP < 100, HR < 60 lisinopril 2.5 mg Tablet 2.5 mg PO DAILY insulin glargine 100 unit/mL Cartridge 10 unit SUBCUT QPM pramipexole [Mirapex] 0.5 mg Tablet 0.5 mg PO DAILY pantoprazole [Protonix] 40 mg Tablet,Delayed Release (Dr/Ec) 40 mg PO DAILY ropinirole 1 mg Tablet 2 mg PO BID tolterodine [Detrol LA] 4 mg Capsule,Extended Release 24hr 4 mg PO DAILY sertraline [Zoloft] 50 mg Tablet 50 mg PO DAILY insulin lispro 100 unit/mL Cartridge 1 sliding scale dose SUBCUT USEASDIRECTD Patient Comments: No coverage if CBG less than 150 spironolactone 25 mg tablet 25 mg PO BID bicalutamide 50 mg tablet 50 mg PO DAILY Rx Instructions: Prostate CA ondansetron 4 mg tablet,disintegrating 8 mg PO Q6H PRN (Reason: Nausea) sennosides [senna] 8.6 mg tablet 17.2 mg PO BEDTIME PRN (Reason: Constipation) hydrocodone-acetaminophen 5-325 mg tablet 2 tab PO Q6H PRN (Reason: pain) Qty: 30 0RF oxycodone [OxyContin] 10 mg tablet,oral only,ext.rel.12 hr 10 mg PO BID Qty: 14 0RF hydroxyzine pamoate [Vistaril] 25 mg capsule 25 mg PO PRN PRN (Reason: Sleep) Discontinued ropinirole 2 mg tablet 2 mg PO BEDTIME Follow up/Referrals: Vandana Hart MD [Primary Care Provider] - Discharge Health Status Multidrug resistant organism: Other Precautions: Contact Diet/Activity/Treatments Diet: Diet as Tolerated and Carb-consistent/Diabetic Liquid consistency: Normal/Thin Food texture: Regular Activity: No restrictions Special Rehabilitation Services Reason for rehabilitation: Other Visit Report/Discharge Packet Stand Alone Forms: Patient Portal/API Discharge Data Primary Care Provider: Vandana Hart
[2023-08-16 15:45] VITALS: BP 138/65; PULSE 60
--- NOTE | 2023-08-16 16:37 | PM.PN.1 ---
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 He has had a percutaneous nephrostomy tube in place which was partially dislodged at the time of his admission. This was complicated by a recurrent ESBL urinary tract infection. He stays at a local assisted living, [place]. They will likely be able to accept him back on Wednesday, he will likely require a ongoing ertapenem for least 7 days. He was sent to [facility] for an exchange of percutaneous tube on 08/13. This is functioning well. C. diff negative, he feels improved. Some leaking around nephrostomy has improved. Exam Vital Signs (past 8 hours): - 08/16/23 15:45 Pulse Rate 60 Blood Pressure 138/65 Oxygen Delivery Method Room Air Oxygen Flow Rate 0 Narrative Exam Narrative: NAD, alert and oriented. Fluent speech. Flat affect. Lungs are clear, normal rate and effort. Heart is regular, no murmur gallop or rub. Abdomen is soft, non distended. Extremities are free of edema. Right percutaneous nephrostomy drain. Dressing is fairly dry today. Objective Labs 08/15/23 10:05 08/16/23 04:10 Labs: Laboratory Results - last 24 hr 08/15/23 08/16/23 15:49 04:10 Sodium 137 Potassium 3.4 Chloride 105 Carbon Dioxide 22 BUN 20 Creatinine 1.34 H Estimated GFR 55 L BUN/Creatinine Ratio 14.9 Glucose 139 H Calcium 8.8 C. difficile Tox (PCR) Negative for c. diff [facility] Medical History DVT (deep venous thrombosis) History of left heart catheterization (12/2019) Atrial fibrillation Paroxysmal A-fib RBBB LAFB (left anterior fascicular block) First degree AV block History of transcatheter aortic valve replacement (TAVR) (08/01/18) Sleep apnea CAD (coronary artery disease) Stress incontinence Enlarged lymph node Chronic anticoagulation Androgen deprivation therapy Stress incontinence, male History of radiation therapy Hydronephrosis, right Prostate cancer Osteoarthritis Hypertension Gout Depression History of prostate cancer Arthritis GERD (gastroesophageal reflux disease) Diabetes Congestive heart failure Pacemaker Surgical History AICD (automatic cardioverter/defibrillator) present (12/30/20) Hx of heart artery stent History of back surgery H/O aortic valve replacement Family History Mother Coronary artery disease involving bypass graft of transplanted heart Cancer Hypertension Social History marital status: number of children: 3 household members: none Previous occupational history: retired Smoking Status: Former smoker alcohol intake: never caffeine: Yes Assessment & Plan Assessment & Plan narrative: 1. Nephrostomy tube malpositioning/malfunction. Present on admission and resolved. - He had a new tube placed at [facility] 08/13. Reported leaking today and yesterday, but observed this morning and no leak. 2. Urinary tract infection (history of ESBL). Present on admission and active. -continue Ertapenem q24 hr for 7 days. Midline placed. Will need to go to SNF to complete therapy, stable today but discharge delayed due to SNF being unable to accept. 3. LLL pneumonia (possible, no symptoms). Present on admission and improved. -Received IV Rocephin/Zithromax in the ED. Monitor closely for now and if O2 saturation remained stable in the mid 90s, will review the need for oral Augmentin versus IV Rocephin/Zithromax. 4. Diabetes mellitus type 2. Present on admission and stable. -Confirm and resume the home medications with insulin sliding scale. Hold metformin due to rising creatinine 5. History of atrial fibrillation/pulmonary embolism. Present on admission and stable. -Resume the home Coumadin which will be dosed by pharmacy. Follow INR (1.8 today). 6. Restless leg syndrome resume the home Mirapex. Present on admission and stable. 7. Depression, present on admission and stable. Resume the home Zoloft 8. Coronary artery disease status post angioplasty, present on admission and stable. DVT prophylaxis will be with Coumadin PLAN/DISPO: Plan for SNF at discharge, was arranged for today but unable to accept at SNF. Will plan for tomorrow again. Time Spent With Patient Time with patient: 30 to 49 minutes with 50% spent counseling/coordinating care
[2023-08-16 20:00] VITALS: BP 153/76; PULSE 60; RESP 16; TEMP 36.4; O2SAT 94
[2023-08-16] MEDS: INSULIN GLARGINE 100 UNIT/ML 3ML PEN 10 UNIT SUBCUT (20:20)
[2023-08-16] MEDS: hydrOXYzine HCL 25 MG TABLET PO (20:29)
[2023-08-16] MEDS: ATORVASTATIN 20 MG TABLET 40 MG PO (20:31)
[2023-08-17 00:23] VITALS: BP 150/72; PULSE 60; RESP 16; TEMP 35.7; O2SAT 95
[2023-08-17] MEDS: HYDROCODONE/ACET 5/325 TABLET 2 TAB PO (02:02)
[2023-08-17 04:03] VITALS: BP 146/61; PULSE 60; RESP 18; TEMP 36.8; O2SAT 94
[2023-08-17] MEDS: OXYCODONE IR 5 MG TABLET PO (04:04)
[2023-08-17 04:50] LABS: BUN Creatinine Ratio 14.9 (6-22); Blood Urea Nitrogen 20 mg/dL (9-20); Calcium 8.8 mg/dL (8.4-10.2); Carbon Dioxide 21 mmol/L (22-32); Chloride 109 mmol/L (98-107); Estimated Glomerular Filt Rate 55 mL/min (>60); Glucose 134 mg/dL (80-110); HEMOLYSIS < 15 (0-50); Potassium 3.6 mmol/L (3.4-5.1); Sodium 138 mmol/L (137-145)
[2023-08-17] MEDS: PANTOPRAZOLE DR 40 MG TABLET PO (06:25)
[2023-08-17 08:00] VITALS: BP 132/62; PULSE 60; RESP 20; TEMP 36.1; O2SAT 97
--- NOTE | 2023-08-17 08:54 | P.DS_ITS ---
History of Present Illness History of Present Illness Date Patient Seen: 08/17/23 Time Patient Seen: 08:54 Chief complaint: new onset vomiting Narrative: From Night Doctor: 73 years old male with a past medical history of prostate cancer with right retroperitoneal mass status post right nephrostomy tube, ESBL UTI, hypertension, coronary artery disease, chronic respiratory failure, atrial fibrillation status post AICD on warfarin, aortic stenosis status post TAVR, diabetes mellitus type 2, GERD and multiple other medical issues was brought in from assisted facility for abdominal pain with nausea and vomiting. He woke up around 2 AM yesterday with nausea and vomiting and abdominal discomfort. Subsequent workup in the ED revealed a white count of 16.2 with a hemoglobin of 11.6. Viral screen was negative. Urine was positive for many bacteria. Lactic acid was 3.0 chest x- ray shows multifocal left lower lobe infiltrate in the left pleural effusion and a CT abdomen showed possible malpositioning of the nephrostomy tube. Patient was given IV ertapenem in addition to Rocephin given the history of ESBL UTI in addition to IV fluids while in the renal function/lactic acidosis monitor. His care was discussed with Dr. Barker on-call urology at [facility]. Patient was accepted for transfer but due to lack of immediate bed availability, patient has been admitted to the medical floor pending transfer. Currently does complain of abdominal discomfort but slightly better than yesterday and nephrostomy tube is draining urine. Additional history:. He states he just does not feel well. He has been staying in an assisted living recently. He is unsure who his urologist is. He has having a fair amount of flank pain associated with his nephrostomy tube. He also has intermittent nausea and dry heaving. He denies any fevers or chills. He has been constipated he also denies any dyspnea or chest pain. Discharge Providers Provider Date of admission: 08/12/23 23:40 Discharge Date: 08/17/23 Primary care physician: Vandana Hart MD Consults: 08/13/23 03:14 Consult to Pharmacy Routine Comment: dose ertapenem 08/14/23 10:21 Consult to Physical Therapy Evaluate & Treat Comment: Physician Instructions: Evaluate and Treat Discharge provider: Jamaal Bryant DO Summary Hospital Course Discharge Diagnosis: 1. Nephrostomy tube malpositioning/malfunction. Present on admission and resolved. 2. Urinary tract infection (history of ESBL). Present on admission and active. 3. LLL pneumonia (possible, no symptoms). Present on admission and improved. 4. Diabetes mellitus type 2. Present on admission and stable. 5. History of atrial fibrillation/pulmonary embolism. Present on admission and stable. 6. Restless leg syndrome resume the home Mirapex. Present on admission and stable. 7. Depression, present on admission and stable. 8. Coronary artery disease status post angioplasty, present on admission and stable. Hospital Course: This is a 73 year old male with PMH of DM2, afib, prior PE, restless legs, depression, CAD who was admitted with UTI and pneumonia. Given history of ESBL infections he was started on a carbapenem. Urine cultures did not grow ESBL, but did grow a drug resistant enterobacter and alcalegnes faecalis. The best management at this time remains a carbapenem for which he will complete therapy at SNF. He initially had a malfunctioning nephrostomy tube for which patient was pending transfer, but he was ultimately transferred to [facility] and transferred back after tube exchange on 08/13. There was some reported leaking afterwards but this was not directly observed upon physician inspection. Further outpatient follow up with urology is recommended as soon as possible after discharge. Ertapenem for 7 days is recommended, the last dose of this will be . Time Spent with Patient Time spent: Greater than 30 minutes Exam Vital Signs (past 8 hours): - 08/17/23 04:03 Temperature 98.3 F Pulse Rate 60 Respiratory Rate 18 Blood Pressure 146/61 H Pulse Oximetry 94 Oxygen Flow Rate 0 Oxygen Delivery Method Room Air Oxygen Flow Rate 0 Narrative Exam Narrative: NAD, alert and oriented. Fluent speech. Flat affect. Lungs are clear, normal rate and effort. Heart is regular, no murmur gallop or rub. Abdomen is soft, non distended. Extremities are free of edema. Right percutaneous nephrostomy drain. Objective Labs 08/15/23 10:05 08/17/23 03:40 Labs: Laboratory Results - last 24 hr 08/17/23 03:40 Sodium 138 Potassium 3.6 Chloride 109 H Carbon Dioxide 21 L BUN 20 Creatinine 1.34 H Estimated GFR 55 L BUN/Creatinine Ratio 14.9 Glucose 134 H Calcium 8.8 PFSH Medical History DVT (deep venous thrombosis) History of left heart catheterization (12/2019) Atrial fibrillation Paroxysmal A-fib RBBB LAFB (left anterior fascicular block) First degree AV block History of transcatheter aortic valve replacement (TAVR) (08/01/18) Sleep apnea CAD (coronary artery disease) Stress incontinence Enlarged lymph node Chronic anticoagulation Androgen deprivation therapy Stress incontinence, male History of radiation therapy Hydronephrosis, right Prostate cancer Osteoarthritis Hypertension Gout Depression History of prostate cancer Arthritis GERD (gastroesophageal reflux disease) Diabetes Congestive heart failure Pacemaker Surgical History AICD (automatic cardioverter/defibrillator) present (12/30/20) Hx of heart artery stent History of back surgery H/O aortic valve replacement Family History Mother Coronary artery disease involving bypass graft of transplanted heart Cancer Hypertension Social History marital status: number of children: 3 household members: none Previous occupational history: retired Smoking Status: Former smoker alcohol intake: never caffeine: Yes Discharge Plan Discharge Plan Patient Disposition: SNF Transfer to: [facility] Provider Discharge Comment: 73 M admitted with an ESBL E. coli UTI. To complete treatment with 3 more days of ertapenem (ends ) after discharge at SNF. Patient does report leaking around his nephrostomy tube, and overnight there was wetness, no leaking found this morning. If leaking continues, recommend follow up with outpatient urology as soon as possible. Discharge orders & Medications Prescriptions: New ertapenem 1 gram recon soln 1 g IV Q24H 3 Days Qty: 3 0RF Continued acetaminophen 325 mg Tablet 650 mg PO Q4H PRN (Reason: pain) atorvastatin 40 mg Tablet 40 mg PO BEDTIME Antacid (calcium carbonate) 215 mg calcium (500 mg) Tablet,Chewable 500 mg DAILY Rx Instructions: AM furosemide 40 mg Tablet 40 mg PO DAILY gabapentin 300 mg Tablet 600 mg PO BID ferrous sulfate 325 mg (65 mg iron) Tablet 325 mg PO DAILY metoprolol succinate 25 mg Tablet Extended Release 24 Hr 12.5 mg PO DAILY Rx Instructions: Hold for SBP < 100, HR < 60 lisinopril 2.5 mg Tablet 2.5 mg PO DAILY insulin glargine 100 unit/mL Cartridge 10 unit SUBCUT QPM pramipexole [Mirapex] 0.5 mg Tablet 0.5 mg PO DAILY pantoprazole [Protonix] 40 mg Tablet,Delayed Release (Dr/Ec) 40 mg PO DAILY ropinirole 1 mg Tablet 2 mg PO BID tolterodine [Detrol LA] 4 mg Capsule,Extended Release 24hr 4 mg PO DAILY sertraline [Zoloft] 50 mg Tablet 50 mg PO DAILY insulin lispro 100 unit/mL Cartridge 1 sliding scale dose SUBCUT USEASDIRECTD Patient Comments: No coverage if CBG less than 150 spironolactone 25 mg tablet 25 mg PO BID bicalutamide 50 mg tablet 50 mg PO DAILY Rx Instructions: Prostate CA ondansetron 4 mg tablet,disintegrating 8 mg PO Q6H PRN (Reason: Nausea) sennosides [senna] 8.6 mg tablet 17.2 mg PO BEDTIME PRN (Reason: Constipation) hydrocodone-acetaminophen 5-325 mg tablet 2 tab PO Q6H PRN (Reason: pain) Qty: 30 0RF oxycodone [OxyContin] 10 mg tablet,oral only,ext.rel.12 hr 10 mg PO BID Qty: 14 0RF hydroxyzine pamoate [Vistaril] 25 mg capsule 25 mg PO PRN PRN (Reason: Sleep) Discontinued ropinirole 2 mg tablet 2 mg PO BEDTIME Follow up/Referrals: Vandana Hart MD [Primary Care Provider] - Discharge Health Status Multidrug resistant organism: Other Precautions: Contact Diet/Activity/Treatments Diet: Diet as Tolerated and Carb-consistent/Diabetic Liquid consistency: Normal/Thin Food texture: Regular Activity: No restrictions Special Rehabilitation Services Reason for rehabilitation: Other Rehab type: Physical therapy and Occupational therapy Visit Report/Discharge Packet Stand Alone Forms: Patient Portal/API Discharge Data Primary Care Provider: Vandana Hart
[2023-08-17] MEDS: BICALUTAMIDE 50 MG TABLET PO (09:16)
[2023-08-17] MEDS: FERROUS SULFATE 325 MG TABLET PO (09:19)
[2023-08-17] MEDS: lisinopriL 5 MG TABLET 2.5 MG PO (09:20)
[2023-08-17] MEDS: FUROSEMIDE 40 MG TABLET PO (09:20)
[2023-08-17] MEDS: GABAPENTIN 600 MG TABLET PO (09:20)
[2023-08-17] MEDS: METOPROLOL ER 25 MG TABLET 12.5 MG PO (09:21)
[2023-08-17] MEDS: SERTRALINE 50 MG TABLET PO (09:22)
[2023-08-17] MEDS: ROPINIROLE 1 MG TABLET 2 MG PO (09:23)
[2023-08-17] MEDS: PRAMIPEXOLE 0.25 MG TABLET 0.5 MG PO (09:23)
[2023-08-17] MEDS: OXYBUTYNIN 5 MG ER TAB 10 MG PO (09:24)
[2023-08-17] MEDS: SPIRONOLACTONE 25 MG TABLET PO (09:24)
[2023-08-17] MEDS: ERTAPENEM 1 GM in SODIUM CHLORIDE 0.9% 100 ML IV (09:41)
[2023-08-17] MEDS: SODIUM CHLORIDE 0.9% FLUSH 10 ML IV (09:41)
--- NOTE | 2023-08-17 10:20 | CM.DPNOTE ---
DCP Note WOUND NURSE reviewed EMR. Per chart review, pt was supposed to dc yesterday to [facility] but transport did not arrive on time and had to be cancelled. WOUND NURSE spoke with Kasye at . Confirm can accept him today and 10:30am is currently scheduled p/u with [facility]. Confirmed they have everything but dc summary. WOUND NURSE updated provider/ASSOCIATE PROFESSOR OF LAW/RN. Med list confirmed in chart. SOCIAL AND HUMAN SERVICES ASSISTANT/RN updated pt on transport. SOCIAL AND HUMAN SERVICES ASSISTANT claims pt is agreeable to plan. WOUND NURSE emailed dc summary to [facility]. Plan: pt to dc today to at 10:30. CM team will continue to follow as needed. JAYLEN Damon
--- NOTE | 2023-08-17 11:02 | PC.NURSE ---
Discharge note: Dressing changed to left toe wound by Roxana KAMARA from wound care at bedside. Ertapenem administered RUE midline prior to discharge. Patient awake, alert, and pleasantly cooperative. Up to chair for breakfast. Nephrostomy in place, draining without issues. Discharge to [facility] by transport staff at 10:33 via wheelchair.
== END 2023-08-17 10:33 | DRG 698 ==
LOC: ED 07:24 → AC 23:41
PROVIDERS: Hospitalist; Admitting Provider Internal Medicine; Emergency Provider Emergency Medicine; PCP Internal Medicine; Referring Provider Emergency Medicine; Visit Provider Internal Medicine
DX: T83.022A Displacement of nephrostomy catheter, initial encounter (principal); J18.9 Pneumonia, unspecified organism; N39.0 Urinary tract infection, site not specified; Z16.11 Resistance to penicillins; I48.91 Unspecified atrial fibrillation; E11.9 Type 2 diabetes mellitus without complications; G25.81 Restless legs syndrome; F32.A Depression, unspecified; I25.10 Atherosclerotic heart disease of native coronary artery without angina pectoris; C61 Malignant neoplasm of prostate; R19.7 Diarrhea, unspecified; B96.89 Other specified bacterial agents as the cause of diseases classified elsewhere; I10 Essential (primary) hypertension; K21.9 Gastro-esophageal reflux disease without esophagitis; Z79.4 Long term (current) use of insulin; Z79.01 Long term (current) use of anticoagulants; Z87.891 Personal history of nicotine dependence; Z95.810 Presence of automatic (implantable) cardiac defibrillator; Z86.711 Personal history of pulmonary embolism; Z95.2 Presence of prosthetic heart valve
CPT/HCPCS: 36415; 71045; 74177; 80048; 80053; 81001; 82550; 82962; 83605; 83690; 83735; 83880; 84145; 84484; 85025; 85027; 85610; 87040; 87077; 87086; 87186; 87493; 87633; 93005; 96365; 96367; 96375; 97116; 97162; 97530; 99285; A9270; J0696; J1335; J1642; J1815; J2060; J2405; Q9967

== ENCOUNTER → 2023-09-14 07:13 | Outpatient (ROUT) | payer MEDICARE, MEDICAID, SELFPAY ==
[2023-08-13 01:09] VITALS: BMI 33.5
[2023-09-14 07:59] LABS: Hemoglobin A1C% w Est Avg Glu 6.9 % (4.0-6.0)
== END ==
PROVIDERS: PCP Internal Medicine; Visit Provider Internal Medicine
DX: E11.9 Type 2 diabetes mellitus without complications (principal)
CPT/HCPCS: 36415; 83036

== ENCOUNTER → 2023-09-21 16:50 | Outpatient (ROUT) | payer MEDICARE, MEDICAID, SELFPAY ==
[2023-08-13 01:09] VITALS: BMI 33.5
[2023-09-21 17:07] LABS: INR 3.3 (0.9-1.3); Prothrombin Time 38.1 SECONDS (9.4-12.5)
== END ==
PROVIDERS: PCP Internal Medicine; Visit Provider Internal Medicine
DX: I48.91 Unspecified atrial fibrillation (principal); Z79.01 Long term (current) use of anticoagulants
CPT/HCPCS: 85610

== ENCOUNTER → 2023-09-28 06:34 | Outpatient (ROUT) | payer MEDICARE, MEDICAID, SELFPAY ==
[2023-08-13 01:09] VITALS: BMI 33.5
[2023-09-28 07:31] LABS: INR 1.6 (0.9-1.3); Prothrombin Time 18.2 SECONDS (9.4-12.5)
== END ==
PROVIDERS: PCP Internal Medicine; Visit Provider Internal Medicine
DX: I48.91 Unspecified atrial fibrillation (principal)
CPT/HCPCS: 36415; 85610

== ENCOUNTER → 2023-10-01 10:55 | Outpatient (CLI) | payer MEDICARE, MEDICAID, SELFPAY ==
[2023-08-13 01:09] VITALS: BMI 33.5
== END ==
PROVIDERS: PCP Internal Medicine; Referring Provider Internal Medicine; Visit Provider Physician Assistant
DX: E11.621 Type 2 diabetes mellitus with foot ulcer (principal); L97.522 Non-pressure chronic ulcer of other part of left foot with fat layer exposed; L53.9 Erythematous condition, unspecified; M10.072 Idiopathic gout, left ankle and foot; R23.4 Changes in skin texture; I25.10 Atherosclerotic heart disease of native coronary artery without angina pectoris; I48.91 Unspecified atrial fibrillation; Z95.0 Presence of cardiac pacemaker
CPT/HCPCS: 11042; 36415; 80053; 83036; 84550; 85025; 99214

== ENCOUNTER → 2023-10-01 12:01 | Outpatient (CLI) | payer MEDICARE, MEDICAID, SELFPAY ==
[2023-08-13 01:09] VITALS: BMI 33.5
[2023-10-01 13:32] LABS: Add Manual Diff / Slide Review NO; Basophils Absolute Auto 100 /uL (0-100); Basophils Percent Auto 0.7 % (0-2); Eosinophils Absolute Auto 400 /uL (0-450); Eosinophils Percent Auto 3.9 % (2-4); Hematocrit 34.9 % (41-53); Hemoglobin 11.8 g/dL (13.5-17.5); Lymphocytes Absolute Auto 1200 /uL (1100-4500); Lymphocytes Percent Auto 11.5 % (25-40); Mean Corpuscular HGB Conc 33.7 % (30-36); Mean Corpuscular Hemoglobin 28.6 PG (26-34); Mean Corpuscular Volume 84.9 fL (80-100); Monocytes Absolute Auto 600 /uL (0-900); Neutrophils Absolute Auto 8500 /uL (1500-7000); Neutrophils Percent Auto 77.9 % (50-75); Platelet Count 210 X10^3/uL (150-400); Red Blood Cell Count 4.11 X10^6/uL (4.5-5.9); Red Cell Distribution Width 16.9 % (11.6-14.8); White Blood Cell Count 10.9 X10^3/uL (4.5-11.0)
[2023-10-01 13:45] LABS: Hemoglobin A1C% w Est Avg Glu 7.4 % (4.0-6.0)
[2023-10-01 13:50] LABS: Alanine Aminotransferase 14 IU/L (<50); Albumin 3.8 g/dL (3.5-5.0); Albumin Globulin Ratio 1.4 (1.0-2.8); Alkaline Phosphatase 95 U/L (38-126); Aspartate Aminotransferase 20 IU/L (17-59); BUN Creatinine Ratio 15.5 (6-22); Bilirubin Total 0.4 mg/dL (0.2-1.3); Blood Urea Nitrogen 23 mg/dL (9-20); Carbon Dioxide 23 mmol/L (22-32); Chloride 106 mmol/L (98-107); Estimated Glomerular Filt Rate 49 mL/min (>60); Globulin 2.7 g/dL (1.7-4.1); Glucose 164 mg/dL (80-110); HEMOLYSIS < 15 (0-50); Potassium 4.4 mmol/L (3.4-5.1); Sodium 138 mmol/L (137-145); Total Protein 6.5 g/dL (6.3-8.2); Uric Acid 6.4 mg/dL (3.5-8.5)
== END ==
PROVIDERS: PCP Internal Medicine; Referring Provider Physician Assistant; Visit Provider Physician Assistant
DX: E11.621 Type 2 diabetes mellitus with foot ulcer (principal); L97.509 Non-pressure chronic ulcer of other part of unspecified foot with unspecified severity; M10.9 Gout, unspecified
CPT/HCPCS: 36415; 80053; 83036; 84550; 85025

== ENCOUNTER → 2023-10-05 17:06 | Outpatient (ROUT) | payer MEDICARE, MEDICAID, SELFPAY ==
[2023-08-13 01:09] VITALS: BMI 33.5
[2023-10-05 17:09] LABS: Hematocrit 32.3 % (41-53); Hemoglobin 10.9 g/dL (13.5-17.5)
[2023-10-05 17:17] LABS: INR 1.9 (0.9-1.3); Prothrombin Time 22.3 SECONDS (9.4-12.5)
[2023-10-05 18:54] LABS: Hemoglobin A1C% w Est Avg Glu 7.7 % (4.0-6.0)
== END ==
PROVIDERS: PCP Internal Medicine; Visit Provider Nurse Practitioner Gerontology
DX: E11.8 Type 2 diabetes mellitus with unspecified complications (principal); I48.91 Unspecified atrial fibrillation; N18.9 Chronic kidney disease, unspecified
CPT/HCPCS: 83036; 85014; 85018; 85610

== ENCOUNTER → 2023-10-12 07:21 | Outpatient (ROUT) | payer MEDICARE, MEDICAID, SELFPAY ==
[2023-08-13 01:09] VITALS: BMI 33.5
[2023-10-12 07:40] LABS: Add Manual Diff / Slide Review NO; Basophils Absolute Auto 100 /uL (0-100); Basophils Percent Auto 0.5 % (0-2); Eosinophils Absolute Auto 300 /uL (0-450); Eosinophils Percent Auto 3.2 % (2-4); Hematocrit 31.1 % (41-53); Hemoglobin 10.4 g/dL (13.5-17.5); Lymphocytes Absolute Auto 1100 /uL (1100-4500); Lymphocytes Percent Auto 11.1 % (25-40); Mean Corpuscular HGB Conc 33.3 % (30-36); Mean Corpuscular Hemoglobin 28.6 PG (26-34); Mean Corpuscular Volume 85.8 fL (80-100); Monocytes Absolute Auto 800 /uL (0-900); Neutrophils Absolute Auto 7300 /uL (1500-7000); Neutrophils Percent Auto 77.2 % (50-75); Platelet Count 160 X10^3/uL (150-400); Red Blood Cell Count 3.63 X10^6/uL (4.5-5.9); Red Cell Distribution Width 16.4 % (11.6-14.8); White Blood Cell Count 9.5 X10^3/uL (4.5-11.0)
[2023-10-12 07:49] LABS: Hemoglobin A1C% w Est Avg Glu 8.2 % (4.0-6.0)
[2023-10-12 07:50] LABS: INR 3.3 (0.9-1.3); Prothrombin Time 37.8 SECONDS (9.4-12.5)
[2023-10-12 07:58] LABS: Alanine Aminotransferase 11 IU/L (<50); Albumin 3.4 g/dL (3.5-5.0); Albumin Globulin Ratio 1.4 (1.0-2.8); Alkaline Phosphatase 83 U/L (38-126); Aspartate Aminotransferase 19 IU/L (17-59); BUN Creatinine Ratio 16.9 (6-22); Bilirubin Total 0.4 mg/dL (0.2-1.3); Blood Urea Nitrogen 23 mg/dL (9-20); Calcium 8.6 mg/dL (8.4-10.2); Carbon Dioxide 25 mmol/L (22-32); Chloride 107 mmol/L (98-107); Estimated Glomerular Filt Rate 54 mL/min (>60); Globulin 2.4 g/dL (1.7-4.1); Glucose 184 mg/dL (80-110); HEMOLYSIS < 15 (0-50); Potassium 4.1 mmol/L (3.4-5.1); Sodium 138 mmol/L (137-145); Total Protein 5.8 g/dL (6.3-8.2)
== END ==
PROVIDERS: PCP Internal Medicine; Visit Provider Internal Medicine
DX: I48.91 Unspecified atrial fibrillation (principal); Z79.01 Long term (current) use of anticoagulants
CPT/HCPCS: 36415; 80053; 83036; 84550; 85025; 85610

== ENCOUNTER → 2023-10-19 07:05 | Outpatient (ROUT) | payer MEDICARE, MEDICAID, SELFPAY ==
[2023-08-13 01:09] VITALS: BMI 33.5
[2023-10-19 08:27] LABS: INR 3.7 (0.9-1.3); Prothrombin Time 42.5 SECONDS (9.4-12.5)
== END ==
PROVIDERS: PCP Internal Medicine; Visit Provider Internal Medicine
DX: I48.91 Unspecified atrial fibrillation (principal)
CPT/HCPCS: 36415; 85610

== ENCOUNTER → 2023-10-22 11:09 | Outpatient (CLI) | payer MEDICARE, MEDICAID, SELFPAY ==
[2023-08-13 01:09] VITALS: BMI 33.5
== END ==
LOC: WC 11:10
PROVIDERS: PCP Internal Medicine; Referring Provider Internal Medicine; Visit Provider Physician Assistant
DX: E11.621 Type 2 diabetes mellitus with foot ulcer (principal); L97.522 Non-pressure chronic ulcer of other part of left foot with fat layer exposed; L53.9 Erythematous condition, unspecified; R23.4 Changes in skin texture; M10.072 Idiopathic gout, left ankle and foot; I25.10 Atherosclerotic heart disease of native coronary artery without angina pectoris; Z95.0 Presence of cardiac pacemaker; N18.9 Chronic kidney disease, unspecified
CPT/HCPCS: 97597; 99213

== ENCOUNTER → 2023-10-28 16:59 | Outpatient (ROUT) | payer MEDICARE, MEDICAID, SELFPAY ==
[2023-08-13 01:09] VITALS: BMI 33.5
[2023-10-28 17:15] LABS: INR 1.7 (0.9-1.3); Prothrombin Time 20.1 SECONDS (9.4-12.5)
== END ==
PROVIDERS: PCP Internal Medicine; Visit Provider Psychiatry & Neurology Neurology
DX: I48.91 Unspecified atrial fibrillation (principal); Z79.01 Long term (current) use of anticoagulants
CPT/HCPCS: 85610

== ENCOUNTER → 2023-11-02 07:55 | Outpatient (ROUT) | payer MEDICARE, MEDICAID, SELFPAY ==
[2023-08-13 01:09] VITALS: BMI 33.5
[2023-11-02 08:49] LABS: INR 1.8 (0.9-1.3); Prothrombin Time 20.6 SECONDS (9.4-12.5)
== END ==
PROVIDERS: PCP Internal Medicine; Visit Provider Internal Medicine
DX: I48.91 Unspecified atrial fibrillation (principal); Z79.01 Long term (current) use of anticoagulants
CPT/HCPCS: 36415; 85610

== ENCOUNTER → 2023-11-05 12:35 | Outpatient (CLI) | payer MEDICARE, MEDICAID, SELFPAY ==
[2023-08-13 01:09] VITALS: BMI 33.5
== END ==
LOC: WC 12:35
PROVIDERS: PCP Internal Medicine; Referring Provider Internal Medicine; Visit Provider Physician Assistant
DX: E11.621 Type 2 diabetes mellitus with foot ulcer (principal); L97.522 Non-pressure chronic ulcer of other part of left foot with fat layer exposed; L53.9 Erythematous condition, unspecified; R23.4 Changes in skin texture; M10.072 Idiopathic gout, left ankle and foot; I25.10 Atherosclerotic heart disease of native coronary artery without angina pectoris; Z95.0 Presence of cardiac pacemaker
CPT/HCPCS: 97597; 99213

== ENCOUNTER → 2023-11-16 07:01 | Outpatient (ROUT) | payer MEDICARE, MEDICAID, SELFPAY ==
[2023-08-13 01:09] VITALS: BMI 33.5
[2023-11-16 08:08] LABS: Add Manual Diff / Slide Review NO; Basophils Absolute Auto 100 /uL (0-100); Basophils Percent Auto 0.8 % (0-2); Eosinophils Absolute Auto 200 /uL (0-450); Eosinophils Percent Auto 3.1 % (2-4); Hematocrit 29.9 % (41-53); Hemoglobin 10.1 g/dL (13.5-17.5); Lymphocytes Absolute Auto 1300 /uL (1100-4500); Lymphocytes Percent Auto 16.9 % (25-40); Mean Corpuscular HGB Conc 33.9 % (30-36); Mean Corpuscular Hemoglobin 28.7 PG (26-34); Mean Corpuscular Volume 84.8 fL (80-100); Monocytes Absolute Auto 500 /uL (0-900); Monocytes Percent Auto 6.2 % (3-14); Neutrophils Absolute Auto 5500 /uL (1500-7000); Platelet Count 152 X10^3/uL (150-400); Red Blood Cell Count 3.53 X10^6/uL (4.5-5.9); Red Cell Distribution Width 17.2 % (11.6-14.8); White Blood Cell Count 7.6 X10^3/uL (4.5-11.0)
[2023-11-16 08:22] LABS: INR 1.4 (0.9-1.3); Prothrombin Time 16.6 SECONDS (9.4-12.5)
[2023-11-16 08:39] LABS: Alanine Aminotransferase 12 IU/L (<50); Albumin 3.5 g/dL (3.5-5.0); Albumin Globulin Ratio 1.7 (1.0-2.8); Alkaline Phosphatase 78 U/L (38-126); Aspartate Aminotransferase 17 IU/L (17-59); BUN Creatinine Ratio 20.6 (6-22); Bilirubin Total 0.4 mg/dL (0.2-1.3); Blood Urea Nitrogen 33 mg/dL (9-20); Calcium 8.6 mg/dL (8.4-10.2); Carbon Dioxide 24 mmol/L (22-32); Chloride 106 mmol/L (98-107); Cholesterol 187 mg/dL (140-199); Estimated Glomerular Filt Rate 45 mL/min (>60); Globulin 2.1 g/dL (1.7-4.1); Glucose 150 mg/dL (80-110); HDL Cholesterol 27 mg/dL (40-60); HEMOLYSIS < 15 (0-50); LDL Cholesterol Calculated 82 mg/dL (<100); Potassium 4.3 mmol/L (3.4-5.1); Sodium 137 mmol/L (137-145); Total Protein 5.6 g/dL (6.3-8.2); Triglycerides 392 mg/dL (35-150)
== END ==
PROVIDERS: PCP Internal Medicine; Visit Provider Internal Medicine Cardiovascular Disease
DX: I48.0 Paroxysmal atrial fibrillation (principal); E78.5 Hyperlipidemia, unspecified
CPT/HCPCS: 36415; 80053; 80061; 85025; 85610

== ENCOUNTER → 2023-11-19 10:42 | Outpatient (CLI) | payer MEDICARE, MEDICAID, SELFPAY ==
[2023-08-13 01:09] VITALS: BMI 33.5
== END ==
PROVIDERS: PCP Internal Medicine; Referring Provider Internal Medicine; Visit Provider Physician Assistant
DX: E11.621 Type 2 diabetes mellitus with foot ulcer (principal); L97.522 Non-pressure chronic ulcer of other part of left foot with fat layer exposed; L53.9 Erythematous condition, unspecified; R23.4 Changes in skin texture; M10.072 Idiopathic gout, left ankle and foot
CPT/HCPCS: 99212; 99213

== ENCOUNTER → 2023-11-25 12:20 | Outpatient (ROUT) | payer MEDICARE, MEDICAID, SELFPAY ==
[2023-08-13 01:09] VITALS: BMI 33.5
[2023-11-25 12:37] LABS: INR 1.1 (0.9-1.3); Prothrombin Time 12.3 SECONDS (9.4-12.5)
[2023-11-25 12:42] LABS: BUN Creatinine Ratio 16.5 (6-22); Blood Urea Nitrogen 26 mg/dL (9-20); Estimated Glomerular Filt Rate 45 mL/min (>60)
== END ==
PROVIDERS: PCP Internal Medicine; Visit Provider Podiatrist
DX: Z01.812 Encounter for preprocedural laboratory examination (principal)
CPT/HCPCS: 82565; 84520; 85610

== ENCOUNTER 2023-11-26 08:13 | Day surgery (SDC) | payer MEDICARE, MEDICAID, SELFPAY ==
[2023-08-13 01:09] VITALS: BMI 33.5
[2023-11-22 08:09] VITALS: BMI 34.0
[2023-11-26 08:50] VITALS: BMI 32.9
--- NOTE | 2023-11-26 09:11 | SUR.PREOP ---
Called in to OR #4 and notified Romi Sandhu CRNA of CBG 226 with no known last dose of medication. See new order for insulin following pt SS from med list.
[2023-11-26 09:13] VITALS: BP 128/68; PULSE 80; RESP 16; TEMP 35.9; O2SAT 97
[2023-11-26] MEDS: INSULIN REGULAR 100 UNIT/ML 3 ML VIAL SUBCUT (09:27)
--- NOTE | 2023-11-26 10:09 | PM.PREOP ---
Pre-operative Note Interval Note History & Physical reviewed/Exam performed by Physician: Yes Changes to H&P: No
--- NOTE | 2023-11-26 10:10 | P.OP_ITS ---
Operative Date/Time/Diagnoses Date of procedure: 11/26/23 Time of procedure: 10:11 Pre-op diagnosis: Left great toe ongoing wound, arthritis, suspected gout. 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 Conservative measures have failed to reduce this pressure and the wound has continued and he wished to have surgical intervention at this time. We spoke with the risks and potential complications as well as expected outcomes and alternatives. Consent was signed and there were no contraindications to the procedure at this time. Surgeon: Shelly Puentes Click Yes if Unassisted: Yes Anesthesia Type: MAC +/- and Sedation Operative Notes Closure Type: primary Specimen(s): other (Deep tissue gram stain and culture left hallux interpha langeal joint.) Estimated Blood Loss (mL): 20 Blood products transfused: none Procedure in detail: The patient was brought to the operating room and placed on the operating table in the supine position. Tourniquet was placed about the left thigh but was not inflated during the case. Patient is well-padded and appropriately supported. After induction of general anesthesia the left foot and ankle were prepped and draped in the usual aseptic manner. Anesthesia to the left first metatarsophalangeal joint was delivered using the recorded injectables. Incision was made over the dorsal hallux interphalangeal joint. The incision was deepened through subcutaneous tissues being careful to identify and retract all vital neurovascular structures. All bleeders were cauterized and ligated as necessary. Immediately the subcutaneous tissues showed investment of gouty tophus. This was in the medial extensor tendon and had eaten into the medial interphalangeal joint subcutaneous bone. Also tophus noted in direct subcutaneous tisssues dorsally and medially. This corresponded to the opening in the skin medially. A rongeur was used to gently remove the larger tophus segments and exposed the spurring of the dorsal medial interphalangeal joint. The rongeur was used to resect the prominent spurring as best as possible and a rasp was used to reduce the sharp edges of the bone. This left a larger gap on the medial edge of the joint, but allowed for much less pressure onto the skin which had been part of creating the wound. The area was irrigated with copious amounts normal sterile saline. No areas of necrosis of bone noted. No purulence. The toe had a little more motion into sagittal plane on attempt at motion, no crepitus on dorsiflexion and plantarflexion. Alignment appeared a little less abducted and contracted on medial interphalangeal joint. Deep/subcutaneous closure was performed with Vicryl. Nylon suture used to close the skin in the two areas; dorsally and then on medial aspect where prior wound tissue was excised from prior tophus pressure wound. The foot was dressed with a lightly compressive sterile dressing. He was then transferred to PACU with vital signs stable. Complications: none Post-operative Condition: stable Disposition: PACU Plan for aftercare: Following a period of postoperative monitoring, the patient will be discharged to his assisted living facility with written and oral postoperative instructions including keeping the dressing dry and intact, no greater than 50% weight to the surgical foot, elevating the foot when seated home. DVT prevention techniques have been reviewed and he will be restarting his anticoagulant based on instructions previously written in orders. For the 1st postoperative visit the dressing will be changed and close to the 3rd postoperative week we will likely remove the sutures.
[2023-11-26] MEDS: CEFAZOLIN 2 GM/100 ML PREMIX 100 ML IV (10:15)
--- NOTE | 2023-11-26 10:35 | SUR.OPER ---
Supine on padded OR bed, head on pillow, arms secured on padded arm boards at <90 degrees abduction, legs uncrossed, safety belt at thigh, tape over blanket over lower legs.
[2023-11-26] MEDS: BUPIVACAINE 0.5% (PF) 30 ML VIAL 10 ML INJ (10:40)
[2023-11-26] MEDS: LIDOCAINE 2% INJ MDV 20ML 20 ML INJ (10:41)
[2023-11-26 11:35] VITALS: BP 135/75; PULSE 60; RESP 16; TEMP 36.2; O2SAT 98
[2023-11-26 11:50] VITALS: BP 133/72; PULSE 60; RESP 16; TEMP 36.2; O2SAT 98
[2023-11-26 11:55] VITALS: BP 130/69; PULSE 60; RESP 16; TEMP 36.2; O2SAT 98
--- NOTE | 2023-11-26 12:05 | SUR.PHASEII ---
Report called to Berenice Lorenzo at [facility].
[2023-11-26 12:25] VITALS: BP 114/60; PULSE 64; RESP 14; TEMP 36.5; O2SAT 97
[2023-11-26] MEDS: LACTATED RINGERS 1,000 ML 42 ML IV (12:34)
== END 2023-11-26 12:28 | disposition home or self-care (01) ==
PROVIDERS: PCP Internal Medicine; Referring Provider Podiatrist; Visit Provider Podiatrist
PROC: (CPT 28024; principal; 2023-11-26 09:45)
DX: L97.521 Non-pressure chronic ulcer of other part of left foot limited to breakdown of skin (principal); M19.072 Primary osteoarthritis, left ankle and foot; E11.42 Type 2 diabetes mellitus with diabetic polyneuropathy; M77.52 Other enthesopathy of left foot and ankle
CPT/HCPCS: 28024; 82962; 85610; 87070; 87205; J0690; J2405; J2704; J3010

== ENCOUNTER → 2023-11-27 18:02 | Outpatient (ROUT) | payer MEDICARE, MEDICAID, SELFPAY ==
[2023-08-13 01:09] VITALS: BMI 33.5
[2023-11-27 18:24] LABS: Prothrombin Time 11.5 SECONDS (9.4-12.5)
[2023-11-27 18:26] LABS: Estimated Glomerular Filt Rate 51 mL/min (>60)
== END ==
PROVIDERS: PCP Internal Medicine; Visit Provider Internal Medicine
DX: I48.91 Unspecified atrial fibrillation (principal); Z79.01 Long term (current) use of anticoagulants
CPT/HCPCS: 82565; 85610

== ENCOUNTER → 2023-11-29 12:40 | Outpatient (ROUT) | payer MEDICARE, MEDICAID, SELFPAY ==
[2023-08-13 01:09] VITALS: BMI 33.5
[2023-11-29 13:12] LABS: INR 1.3 (0.9-1.3); Prothrombin Time 14.6 SECONDS (9.4-12.5)
[2023-11-29 13:20] LABS: Estimated Glomerular Filt Rate 52 mL/min (>60)
== END ==
PROVIDERS: PCP Internal Medicine; Visit Provider Internal Medicine
DX: I48.91 Unspecified atrial fibrillation (principal); Z79.01 Long term (current) use of anticoagulants
CPT/HCPCS: 82565; 85610

== ENCOUNTER → 2023-11-30 08:15 | Outpatient (ROUT) | payer MEDICARE, MEDICAID, SELFPAY ==
[2023-08-13 01:09] VITALS: BMI 33.5
[2023-11-30 09:04] LABS: INR 1.5 (0.9-1.3); Prothrombin Time 17.2 SECONDS (9.4-12.5)
== END ==
PROVIDERS: PCP Internal Medicine; Visit Provider Internal Medicine
DX: I48.91 Unspecified atrial fibrillation (principal); Z79.01 Long term (current) use of anticoagulants
CPT/HCPCS: 36415; 85610

== ENCOUNTER → 2023-12-01 18:08 | Outpatient (ROUT) | payer MEDICARE, MEDICAID, SELFPAY ==
[2023-08-13 01:09] VITALS: BMI 33.5
[2023-12-01 18:15] LABS: INR 1.7 (0.9-1.3); Prothrombin Time 19.2 SECONDS (9.4-12.5)
== END ==
PROVIDERS: PCP Internal Medicine; Visit Provider Internal Medicine
DX: I48.91 Unspecified atrial fibrillation (principal); Z79.01 Long term (current) use of anticoagulants
CPT/HCPCS: 85610

== ENCOUNTER → 2023-12-03 16:58 | Outpatient (ROUT) | payer MEDICARE, MEDICAID, SELFPAY ==
[2023-08-13 01:09] VITALS: BMI 33.5
[2023-12-03 17:06] LABS: INR 1.6 (0.9-1.3); Prothrombin Time 18.8 SECONDS (9.4-12.5)
== END ==
PROVIDERS: PCP Internal Medicine; Visit Provider Internal Medicine
DX: I48.91 Unspecified atrial fibrillation (principal)
CPT/HCPCS: 85610

== ENCOUNTER → 2023-12-06 11:47 | Outpatient (ROUT) | payer MEDICARE, MEDICAID, SELFPAY ==
[2023-08-13 01:09] VITALS: BMI 33.5
[2023-12-06 16:16] LABS: INR 2.3 (0.9-1.3); Prothrombin Time 26.6 SECONDS (9.4-12.5)
== END ==
PROVIDERS: PCP Internal Medicine; Visit Provider Registered Nurse
DX: I48.91 Unspecified atrial fibrillation (principal)
CPT/HCPCS: 36415; 85610

== ENCOUNTER → 2023-12-10 14:47 | Outpatient (CLI) | payer MEDICARE, MEDICAID, SELFPAY ==
[2023-08-13 01:09] VITALS: BMI 33.5
[2023-12-10 16:17] LABS: INR 2.9 (0.9-1.3); Prothrombin Time 33.7 SECONDS (9.4-12.5)
== END ==
LOC: LAB 14:49
PROVIDERS: PCP Internal Medicine; Referring Provider Internal Medicine; Visit Provider Internal Medicine
DX: I48.91 Unspecified atrial fibrillation (principal)
CPT/HCPCS: 36415; 85610

== ENCOUNTER → 2023-12-17 13:41 | Outpatient (CLI) | payer MEDICARE, MEDICAID, SELFPAY ==
[2023-08-13 01:09] VITALS: BMI 33.5
[2023-12-17 14:35] LABS: INR 4.1 (0.9-1.3); Prothrombin Time 48.1 SECONDS (9.4-12.5)
== END ==
PROVIDERS: PCP Internal Medicine; Referring Provider Internal Medicine; Visit Provider Internal Medicine
DX: I48.91 Unspecified atrial fibrillation (principal)
CPT/HCPCS: 36415; 85610

== ENCOUNTER → 2023-12-19 15:40 | Outpatient (ROUT) | payer MEDICARE, MEDICAID, SELFPAY ==
[2023-08-13 01:09] VITALS: BMI 33.5
[2023-12-19 15:49] LABS: INR 2.4 (0.9-1.3); Prothrombin Time 27.9 SECONDS (9.4-12.5)
== END ==
PROVIDERS: PCP Internal Medicine; Visit Provider Internal Medicine
DX: I48.91 Unspecified atrial fibrillation (principal)
CPT/HCPCS: 85610

== ENCOUNTER → 2023-12-20 15:10 | Outpatient (ROUT) | payer MEDICARE, MEDICAID, SELFPAY ==
[2023-08-13 01:09] VITALS: BMI 33.5
[2023-12-20 15:27] LABS: INR 1.8 (0.9-1.3); Prothrombin Time 20.7 SECONDS (9.4-12.5)
== END ==
PROVIDERS: PCP Internal Medicine; Visit Provider Internal Medicine
DX: I48.91 Unspecified atrial fibrillation (principal); Z79.01 Long term (current) use of anticoagulants
CPT/HCPCS: 85610

== ENCOUNTER → 2023-12-22 17:25 | Outpatient (ROUT) | payer MEDICARE, MEDICAID, SELFPAY ==
[2023-08-13 01:09] VITALS: BMI 33.5
[2023-12-22 17:37] LABS: INR 2.2 (0.9-1.3); Prothrombin Time 24.9 SECONDS (9.4-12.5)
== END ==
PROVIDERS: PCP Internal Medicine; Visit Provider Registered Nurse
DX: I48.91 Unspecified atrial fibrillation (principal); Z79.01 Long term (current) use of anticoagulants
CPT/HCPCS: 85610

== ENCOUNTER → 2023-12-28 08:10 | Outpatient (ROUT) | payer MEDICARE, MEDICAID, SELFPAY ==
[2023-08-13 01:09] VITALS: BMI 33.5
[2023-12-28 09:01] LABS: INR 3.5 (0.9-1.3); Prothrombin Time 40.8 SECONDS (9.4-12.5)
== END ==
PROVIDERS: PCP Internal Medicine; Visit Provider Internal Medicine
DX: I48.91 Unspecified atrial fibrillation (principal); Z79.01 Long term (current) use of anticoagulants
CPT/HCPCS: 36415; 85610

== ENCOUNTER → 2023-12-31 14:24 | Outpatient (CLI) | payer MEDICARE, MEDICAID, SELFPAY ==
[2023-08-13 01:09] VITALS: BMI 33.5
[2023-12-31 15:14] LABS: Appearance Urine UA CLEAR; Bilirubin Urine UA NEGATIVE (NEGATIVE); Color Urine UA YELLOW; Glucose Urine UA NEGATIVE (Negative); Ketones Urine UA NEGATIVE (NEGATIVE); Leukocyte Esterase Urine UA NEGATIVE (NEGATIVE); Nitrite Urine UA NEGATIVE (Negative); Occult Blood Urine UA NEGATIVE (Negative); Protein Urine UA NEGATIVE (Negative); Urobilinogen Urine UA 0.2 E.U./dL (0.2); pH Urine UA 5.5 (4.5-8.0)
[2023-12-31 15:27] LABS: Bacteria Urine None Seen; RBC Urine None Seen (0-5/HPF); Urine Volume 10mL (spun); WBC Urine None Seen (0-5/HPF)
[2023-12-31 15:28] LABS: Culture Indicated Urine Cult Not Indicated; Squamous Epithelial Cell Urine 1-5 /HPF (0-5/HPF)
[2023-12-31 17:57] LABS: INR 1.8 (0.9-1.3); Prothrombin Time 20.6 SECONDS (9.4-12.5)
== END ==
LOC: LAB 14:30
PROVIDERS: Registered Nurse; PCP Internal Medicine; Referring Provider Internal Medicine; Visit Provider Internal Medicine
DX: I48.91 Unspecified atrial fibrillation (principal)
CPT/HCPCS: 81001; 85610

== ENCOUNTER → 2024-01-04 08:06 | Outpatient (ROUT) | payer MEDICARE, MEDICAID, SELFPAY ==
[2023-08-13 01:09] VITALS: BMI 33.5
[2024-01-04 08:14] LABS: INR 2.6 (0.9-1.3); Prothrombin Time 29.8 SECONDS (9.4-12.5)
== END ==
PROVIDERS: PCP Internal Medicine; Visit Provider Internal Medicine
DX: I48.91 Unspecified atrial fibrillation (principal)
CPT/HCPCS: 36415; 85610

== ENCOUNTER → 2024-01-11 09:53 | Outpatient (CLI) | payer MEDICARE, MEDICAID, SELFPAY ==
[2023-08-13 01:09] VITALS: BMI 33.5
[2024-01-11 12:39] LABS: Add Manual Diff / Slide Review NO; Basophils Absolute Auto 100 /uL (0-100); Basophils Percent Auto 0.6 % (0-2); Eosinophils Absolute Auto 200 /uL (0-450); Eosinophils Percent Auto 2.2 % (2-4); Hemoglobin 11.3 g/dL (13.5-17.5); Lymphocytes Absolute Auto 1200 /uL (1100-4500); Lymphocytes Percent Auto 12.4 % (25-40); Mean Corpuscular HGB Conc 34.2 % (30-36); Mean Corpuscular Hemoglobin 29.3 PG (26-34); Mean Corpuscular Volume 85.7 fL (80-100); Monocytes Absolute Auto 500 /uL (0-900); Monocytes Percent Auto 5.1 % (3-14); Neutrophils Absolute Auto 7500 /uL (1500-7000); Neutrophils Percent Auto 79.7 % (50-75); Platelet Count 234 X10^3/uL (150-400); Red Blood Cell Count 3.85 X10^6/uL (4.5-5.9); Red Cell Distribution Width 17.5 % (11.6-14.8); White Blood Cell Count 9.5 X10^3/uL (4.5-11.0)
[2024-01-11 13:06] LABS: INR 3.6 (0.9-1.3); Prothrombin Time 42.4 SECONDS (9.4-12.5)
[2024-01-11 13:11] LABS: Hemoglobin A1C% w Est Avg Glu 7.4 % (4.0-6.0)
[2024-01-11 13:15] LABS: BUN Creatinine Ratio 20.1 (6-22); Blood Urea Nitrogen 29 mg/dL (9-20); Calcium 8.6 mg/dL (8.4-10.2); Carbon Dioxide 23 mmol/L (22-32); Chloride 100 mmol/L (98-107); Estimated Glomerular Filt Rate 51 mL/min (>60); Glucose 235 mg/dL (80-110); HEMOLYSIS < 15 (0-50); Potassium 4.6 mmol/L (3.4-5.1); Sodium 134 mmol/L (137-145)
== END ==
PROVIDERS: PCP Internal Medicine; Referring Provider Nurse Practitioner Family; Visit Provider Nurse Practitioner Family
DX: I10 Essential (primary) hypertension (principal)
CPT/HCPCS: 36415; 80048; 83036; 85025; 85610

== ENCOUNTER → 2024-01-18 11:41 | Outpatient (ROUT) | payer MEDICARE, MEDICAID, SELFPAY ==
[2023-08-13 01:09] VITALS: BMI 33.5
[2024-01-18 12:30] LABS: INR 2.3 (0.9-1.3); Prothrombin Time 27.2 SECONDS (9.4-12.5)
== END ==
PROVIDERS: PCP Internal Medicine; Visit Provider Registered Nurse
DX: I48.91 Unspecified atrial fibrillation (principal)
CPT/HCPCS: 36415; 85610

== ENCOUNTER → 2024-01-25 05:54 | Outpatient (ROUT) | payer MEDICARE, MEDICAID, SELFPAY ==
[2023-08-13 01:09] VITALS: BMI 33.5
[2024-01-25 06:50] LABS: INR 2.8 (0.9-1.3); Prothrombin Time 32.1 SECONDS (9.4-12.5)
== END ==
PROVIDERS: Registered Nurse; PCP Internal Medicine; Visit Provider Nurse Practitioner Family
DX: I48.91 Unspecified atrial fibrillation (principal); Z79.01 Long term (current) use of anticoagulants
CPT/HCPCS: 36415; 85610

== ENCOUNTER → 2024-02-01 07:18 | Outpatient (ROUT) | payer MEDICARE, MEDICAID, SELFPAY ==
[2023-08-13 01:09] VITALS: BMI 33.5
[2024-02-01 07:37] LABS: INR 1.2 (0.9-1.3); Prothrombin Time 13.4 SECONDS (9.4-12.5)
== END ==
PROVIDERS: PCP Internal Medicine; Visit Provider Registered Nurse
DX: I48.91 Unspecified atrial fibrillation (principal); Z79.01 Long term (current) use of anticoagulants
CPT/HCPCS: 36415; 85610

== ENCOUNTER → 2024-02-08 06:30 | Outpatient (ROUT) | payer MEDICARE, MEDICAID, SELFPAY ==
[2023-08-13 01:09] VITALS: BMI 33.5
[2024-02-08 08:09] LABS: INR 1.8 (0.9-1.3); Prothrombin Time 20.6 SECONDS (9.4-12.5)
== END ==
PROVIDERS: PCP Internal Medicine; Visit Provider Registered Nurse
DX: Z51.81 Encounter for therapeutic drug level monitoring (principal)
CPT/HCPCS: 36415; 85610

== ENCOUNTER → 2024-02-15 07:15 | Outpatient (ROUT) | payer MEDICARE, MEDICAID, SELFPAY ==
[2023-08-13 01:09] VITALS: BMI 33.5
[2024-02-15 07:29] LABS: INR 2.5 (0.9-1.3); Prothrombin Time 29.1 SECONDS (9.4-12.5)
== END ==
PROVIDERS: PCP Internal Medicine; Visit Provider Internal Medicine
DX: I48.91 Unspecified atrial fibrillation (principal)
CPT/HCPCS: 36415; 85610

== ENCOUNTER → 2024-02-22 11:15 | Outpatient (CLI) | payer MEDICARE, MEDICAID, SELFPAY ==
[2023-08-13 01:09] VITALS: BMI 33.5
[2024-02-22 13:22] LABS: INR 2.8 (0.9-1.3); Prothrombin Time 32.5 SECONDS (9.4-12.5)
== END ==
PROVIDERS: PCP Nurse Practitioner Family; Referring Provider Nurse Practitioner Family; Visit Provider Nurse Practitioner Family
DX: I48.0 Paroxysmal atrial fibrillation (principal)
CPT/HCPCS: 36415; 85610

== ENCOUNTER → 2024-02-29 07:19 | Outpatient (ROUT) | payer MEDICARE, MEDICAID, SELFPAY ==
[2023-08-13 01:09] VITALS: BMI 33.5
[2024-02-29 07:28] LABS: INR 3.2 (0.9-1.3); Prothrombin Time 36.7 SECONDS (9.4-12.5)
== END ==
PROVIDERS: PCP Nurse Practitioner Family; Visit Provider Nurse Practitioner Family
DX: I48.91 Unspecified atrial fibrillation (principal)
CPT/HCPCS: 36415; 85610

== ENCOUNTER → 2024-03-07 07:08 | Outpatient (ROUT) | payer MEDICARE, MEDICAID, SELFPAY ==
[2023-08-13 01:09] VITALS: BMI 33.5
[2024-03-07 08:14] LABS: INR 2.8 (0.9-1.3)
== END ==
PROVIDERS: PCP Nurse Practitioner Family; Visit Provider Internal Medicine
DX: I48.91 Unspecified atrial fibrillation (principal)
CPT/HCPCS: 36415; 85610

== ENCOUNTER → 2024-03-14 10:25 | Outpatient (CLI) | payer MEDICARE, MEDICAID, SELFPAY ==
[2023-08-13 01:09] VITALS: BMI 33.5
[2024-03-14 12:34] LABS: INR 2.3 (0.9-1.3); Prothrombin Time 26.7 SECONDS (9.4-12.5)
== END ==
LOC: LAB 10:27
PROVIDERS: PCP Nurse Practitioner Family; Referring Provider Internal Medicine; Visit Provider Internal Medicine
DX: I48.91 Unspecified atrial fibrillation (principal)
CPT/HCPCS: 36415; 85610

== ENCOUNTER → 2024-03-21 16:42 | Outpatient (ROUT) | payer MEDICARE, MEDICAID, SELFPAY ==
[2023-08-13 01:09] VITALS: BMI 33.5
[2024-03-21 17:04] LABS: INR 2.9 (0.9-1.3); Prothrombin Time 33.7 SECONDS (9.4-12.5)
== END ==
PROVIDERS: PCP Nurse Practitioner Family; Visit Provider Nurse Practitioner Family
DX: I48.91 Unspecified atrial fibrillation (principal)
CPT/HCPCS: 85610

== ENCOUNTER → 2024-03-29 08:25 | Outpatient (ROUT) | payer MEDICARE, MEDICAID, SELFPAY ==
[2023-08-13 01:09] VITALS: BMI 33.5
[2024-03-29 08:47] LABS: INR 2.6 (0.9-1.3); Prothrombin Time 29.9 SECONDS (9.4-12.5)
== END ==
PROVIDERS: PCP Nurse Practitioner Family; Visit Provider Nurse Practitioner Family
DX: I48.91 Unspecified atrial fibrillation (principal)
CPT/HCPCS: 36415; 85610

== ENCOUNTER → 2024-04-05 06:30 | Outpatient (ROUT) | payer MEDICARE, MEDICAID, SELFPAY ==
[2023-08-13 01:09] VITALS: BMI 33.5
[2024-04-05 08:16] LABS: INR 3.9 (0.9-1.3); Prothrombin Time 45.5 SECONDS (9.4-12.5)
== END ==
PROVIDERS: PCP Nurse Practitioner Family
DX: I48.91 Unspecified atrial fibrillation (principal); Z79.01 Long term (current) use of anticoagulants
CPT/HCPCS: 36415; 85610

== ENCOUNTER → 2024-04-12 06:16 | Outpatient (ROUT) | payer MEDICARE, MEDICAID, SELFPAY ==
[2023-08-13 01:09] VITALS: BMI 33.5
[2024-04-12 07:35] LABS: INR 2.3 (0.9-1.3); Prothrombin Time 27.2 SECONDS (9.4-12.5)
== END ==
PROVIDERS: PCP Nurse Practitioner Family; Visit Provider Registered Nurse
DX: I48.91 Unspecified atrial fibrillation (principal); Z79.01 Long term (current) use of anticoagulants
CPT/HCPCS: 36415; 85610

== ENCOUNTER → 2024-04-19 15:03 | Outpatient (ROUT) | payer MEDICARE, MEDICAID, SELFPAY ==
[2023-08-13 01:09] VITALS: BMI 33.5
[2024-04-19 15:15] LABS: INR 3.7 (0.9-1.3); Prothrombin Time 41.2 SECONDS (9.4-12.5)
== END ==
PROVIDERS: PCP Nurse Practitioner Family; Visit Provider Internal Medicine
DX: I48.91 Unspecified atrial fibrillation (principal)
CPT/HCPCS: 85610

== ENCOUNTER → 2024-04-26 06:13 | Outpatient (ROUT) | payer MEDICARE, MEDICAID, SELFPAY ==
[2023-08-13 01:09] VITALS: BMI 33.5
[2024-04-26 07:39] LABS: INR 2.6 (0.9-1.3)
== END ==
PROVIDERS: PCP Nurse Practitioner Family; Visit Provider Registered Nurse
DX: I48.91 Unspecified atrial fibrillation (principal); Z79.01 Long term (current) use of anticoagulants
CPT/HCPCS: 36415; 85610

== ENCOUNTER → 2024-05-03 06:21 | Outpatient (ROUT) | payer MEDICARE, MEDICAID, SELFPAY ==
[2023-08-13 01:09] VITALS: BMI 33.5
[2024-05-03 09:00] LABS: INR 3.5 (0.9-1.3); Prothrombin Time 38.1 SECONDS (9.4-12.5)
== END ==
PROVIDERS: PCP Nurse Practitioner Family
DX: I48.91 Unspecified atrial fibrillation (principal); Z79.01 Long term (current) use of anticoagulants
CPT/HCPCS: 36415; 85610

== ENCOUNTER → 2024-05-10 06:28 | Outpatient (ROUT) | payer MEDICARE, MEDICAID, SELFPAY ==
[2023-08-13 01:09] VITALS: BMI 33.5
[2024-05-10 08:34] LABS: INR 2.6 (0.9-1.3); Prothrombin Time 28.8 SECONDS (9.4-12.5)
== END ==
PROVIDERS: PCP Nurse Practitioner Family
DX: I48.91 Unspecified atrial fibrillation (principal)
CPT/HCPCS: 36415; 85610

== ENCOUNTER → 2024-05-17 06:17 | Outpatient (ROUT) | payer MEDICARE, MEDICAID, SELFPAY ==
[2023-08-13 01:09] VITALS: BMI 33.5
[2024-05-17 08:06] LABS: INR 2.8 (0.9-1.3); Prothrombin Time 30.4 SECONDS (9.4-12.5)
== END ==
PROVIDERS: Internal Medicine; PCP Nurse Practitioner Family
DX: I48.91 Unspecified atrial fibrillation (principal)
CPT/HCPCS: 36415; 85610

== ENCOUNTER → 2024-05-31 15:19 | Outpatient (ROUT) | payer MEDICARE, MEDICAID, SELFPAY ==
[2023-08-13 01:09] VITALS: BMI 33.5
[2024-05-31 15:25] LABS: Hematocrit 33.1 % (41-53); Hemoglobin 11.1 g/dL (13.5-17.5); Mean Corpuscular HGB Conc 33.6 % (30-36); Mean Corpuscular Hemoglobin 28.7 PG (26-34); Mean Corpuscular Volume 85.3 fL (80-100); Platelet Count 205 X10^3/uL (150-400); Red Blood Cell Count 3.88 X10^6/uL (4.5-5.9); Red Cell Distribution Width 17.5 % (11.6-14.8); White Blood Cell Count 9.7 X10^3/uL (4.5-11.0)
[2024-05-31 15:33] LABS: INR 2.9 (0.9-1.3); Prothrombin Time 31.8 SECONDS (9.4-12.5)
[2024-05-31 15:44] LABS: BUN Creatinine Ratio 17.2 (6-22); Blood Urea Nitrogen 26 mg/dL (9-20); Calcium 8.8 mg/dL (8.4-10.2); Carbon Dioxide 22 mmol/L (22-32); Chloride 101 mmol/L (98-107); Estimated Glomerular Filt Rate 48 mL/min (>60); Glucose 260 mg/dL (80-110); HEMOLYSIS < 15 (0-50); Magnesium 1.8 mg/dL (1.6-2.3); Potassium 4.6 mmol/L (3.4-5.1); Sodium 134 mmol/L (137-145)
== END ==
PROVIDERS: PCP Nurse Practitioner Family; Visit Provider Registered Nurse
DX: R60.9 Edema, unspecified (principal); N18.9 Chronic kidney disease, unspecified; I48.91 Unspecified atrial fibrillation
CPT/HCPCS: 80048; 83735; 85027; 85610

== ENCOUNTER → 2024-06-07 06:24 | Outpatient (ROUT) | payer MEDICARE, MEDICAID, SELFPAY ==
[2023-08-13 01:09] VITALS: BMI 33.5
[2024-06-07 08:20] LABS: Prothrombin Time 33.6 SECONDS (9.4-12.5)
== END ==
PROVIDERS: PCP Nurse Practitioner Family; Visit Provider Nurse Practitioner Family
DX: I48.91 Unspecified atrial fibrillation (principal)
CPT/HCPCS: 36415; 85610

== ENCOUNTER → 2024-06-16 15:05 | Outpatient (CLI) | payer MEDICARE, MEDICAID, SELFPAY ==
[2023-08-13 01:09] VITALS: BMI 33.5
[2024-06-16 15:33] LABS: INR 2.6 (0.9-1.3); Prothrombin Time 28.9 SECONDS (9.4-12.5)
== END ==
PROVIDERS: PCP Nurse Practitioner Family; Referring Provider Registered Nurse; Visit Provider Registered Nurse
DX: I48.0 Paroxysmal atrial fibrillation (principal)
CPT/HCPCS: 36415; 85610

== ENCOUNTER → 2024-06-20 11:05 | Outpatient (CLI) | payer MEDICARE, MEDICAID, SELFPAY ==
[2023-08-13 01:09] VITALS: BMI 33.5
[2024-06-20 11:57] LABS: INR 3.3 (0.9-1.3); Prothrombin Time 36.8 SECONDS (9.4-12.5)
== END ==
PROVIDERS: PCP Nurse Practitioner Family; Referring Provider Internal Medicine; Visit Provider Internal Medicine
DX: I48.0 Paroxysmal atrial fibrillation (principal)
CPT/HCPCS: 36415; 85610

== ENCOUNTER → 2024-06-23 07:08 | Outpatient (ROUT) | payer MEDICARE, MEDICAID, SELFPAY ==
[2023-08-13 01:09] VITALS: BMI 33.5
[2024-06-23 07:22] LABS: Cholesterol 134 mg/dL (140-199); HDL Cholesterol 29 mg/dL (40-60)
[2024-06-23 07:23] LABS: LDL Cholesterol Calculated 58 mg/dL (<100); Triglycerides 235 mg/dL (35-150)
== END ==
PROVIDERS: PCP Nurse Practitioner Family; Visit Provider Nurse Practitioner Family
DX: I48.91 Unspecified atrial fibrillation (principal); E78.5 Hyperlipidemia, unspecified; Z79.01 Long term (current) use of anticoagulants
CPT/HCPCS: 80061

== ENCOUNTER → 2024-06-23 11:44 | Outpatient (CLI) | payer MEDICARE, MEDICAID, SELFPAY ==
[2023-08-13 01:09] VITALS: BMI 33.5
[2024-06-23 12:40] LABS: INR 4.1 (0.9-1.3); Prothrombin Time 44.3 SECONDS (9.4-12.5)
== END ==
LOC: LAB 11:46
PROVIDERS: PCP Nurse Practitioner Family; Referring Provider Internal Medicine; Visit Provider Internal Medicine
DX: I48.0 Paroxysmal atrial fibrillation (principal)
CPT/HCPCS: 36415; 85610

== ENCOUNTER → 2024-06-26 15:16 | Outpatient (ROUT) | payer MEDICARE, MEDICAID, SELFPAY ==
[2023-08-13 01:09] VITALS: BMI 33.5
[2024-06-26 15:31] LABS: INR 1.7 (0.9-1.3); Prothrombin Time 19.1 SECONDS (9.4-12.5)
== END ==
PROVIDERS: PCP Nurse Practitioner Family; Visit Provider Internal Medicine
DX: I48.91 Unspecified atrial fibrillation (principal)
CPT/HCPCS: 85610

== ENCOUNTER → 2024-06-28 06:14 | Outpatient (ROUT) | payer MEDICARE, MEDICAID, SELFPAY ==
[2023-08-13 01:09] VITALS: BMI 33.5
[2024-06-28 08:40] LABS: INR 1.6 (0.9-1.3); Prothrombin Time 17.9 SECONDS (9.4-12.5)
== END ==
PROVIDERS: Registered Nurse; PCP Nurse Practitioner Family
DX: I48.91 Unspecified atrial fibrillation (principal); Z79.01 Long term (current) use of anticoagulants
CPT/HCPCS: 36415; 85610

== ENCOUNTER → 2024-07-05 06:21 | Outpatient (ROUT) | payer MEDICARE, MEDICAID, SELFPAY ==
[2023-08-13 01:09] VITALS: BMI 33.5
[2024-07-05 08:30] LABS: Prothrombin Time 33.1 SECONDS (9.4-12.5)
== END ==
PROVIDERS: PCP Nurse Practitioner Family
DX: I48.91 Unspecified atrial fibrillation (principal); Z79.01 Long term (current) use of anticoagulants
CPT/HCPCS: 36415; 85610

== ENCOUNTER 2024-07-09 23:07 | Emergency (ER) | payer MEDICARE, MEDICAID, SELFPAY ==
[2023-08-13 01:09] VITALS: BMI 33.5
[2024-07-09 23:08] VITALS: BP 139/62; PULSE 65; RESP 20; TEMP 36.4; O2SAT 100; BMI 34.8
--- NOTE | 2024-07-09 23:24 | ED.ABDPAIN ---
HPI - Abdominal Pain General Chief Complaint: Urogenital-Male Stated Complaint: abd, flank, and leg pain Time Seen by Provider: 07/09/24 23:24 Source: patient and EMS Mode of arrival: EMS History of Present Illness HPI narrative: 74-year-old male history of CAD, CHF, AFib status post AICD on warfarin, aortic stenosis status post TAVR, diabetes, prostate cancer with right retroperitoneal mass status post right nephrostomy tube, comes into the ED via EMS from assisted living for evaluation of right-sided flank pain x2 hours, no nausea vomiting diarrhea, states that he did try taking Vicodin at around 9:30 a.m. without any relief therefore decided come into the ED for further evaluation treatment. Related Data Home Medications Medication Instructions Recorded Confirmed acetaminophen 325 mg tablet 650 mg PO Q4H PRN pain 06/13/22 11/26/23 atorvastatin 40 mg tablet 40 mg PO BEDTIME 06/13/22 11/26/23 calcium carbonate (Antacid 500 mg DAILY 06/13/22 08/12/23 (calcium carbonate)) ferrous sulfate 325 mg (65 mg 325 mg PO DAILY 06/13/22 08/12/23 iron) tablet furosemide 40 mg tablet 40 mg PO DAILY 06/13/22 11/26/23 gabapentin 300 mg tablet 600 mg PO BID 06/13/22 11/26/23 insulin glargine 100 unit/mL 10 unit SUBCUT QPM 06/13/22 11/26/23 subcutaneous cartridge insulin lispro 100 unit/mL 1 sliding scale dose SUBCUT 06/13/22 11/26/23 subcutaneous cartridge USEASDIRECTD lisinopril 2.5 mg tablet 2.5 mg PO DAILY 06/13/22 11/26/23 metoprolol succinate 25 mg 12.5 mg PO DAILY 06/13/22 11/26/23 tablet,extended release 24 hr pantoprazole 40 mg tablet,delayed 40 mg PO DAILY 06/13/22 11/26/23 release (Protonix) pramipexole 0.5 mg tablet (Mirapex) 0.5 mg PO DAILY 06/13/22 08/12/23 ropinirole 1 mg tablet 2 mg PO BID 06/13/22 11/26/23 sertraline 50 mg tablet (Zoloft) 50 mg PO DAILY 06/13/22 08/12/23 tolterodine 4 mg capsule,extended 4 mg PO DAILY 06/13/22 11/26/23 release 24 hr (Detrol LA) hydroxyzine pamoate 25 mg capsule 25 mg PO PRN PRN Sleep 08/03/22 11/26/23 (Vistaril) bicalutamide 50 mg tablet 50 mg PO DAILY 12/14/22 08/12/23 ondansetron 4 mg disintegrating 8 mg PO Q6H PRN Nausea 12/14/22 08/12/23 tablet spironolactone 25 mg tablet 25 mg PO BID 12/14/22 11/26/23 sennosides 8.6 mg tablet (senna) 17.2 mg PO BEDTIME PRN Constipation 08/12/23 08/12/23 warfarin 11/22/23 enoxaparin 100 mg/mL subcutaneous 100 mg SUBCUT DAILY 11/26/23 11/26/23 syringe Previous Rx's Medication Instructions Recorded hydrocodone 5 mg-acetaminophen 325 2 tab PO Q6H PRN pain #30 tabs 08/16/23 mg tablet oxycodone 10 mg tablet,crush 10 mg PO BID #14 tabs 08/16/23 resistant,extended release 12 hr (OxyContin) Allergies Allergy/AdvReac Type Severity Reaction Status Date / Time crab Allergy Severe Deathly Verified 11/26/23 08:50 sick aspartame Allergy Unknown Verified 11/26/23 08:50 carbidopa Allergy Hallucinations, Verified 11/26/23 08:50 anxiety morphine AdvReac Nausea/vomi Verified 11/26/23 08:50 ting Review of Systems Review of Systems Narrative: General: Denies fever, chills, weight loss HEENT: Denies headache, eye drainage, eye irritation, head trauma, sore throat, voice change Cardiovascular: Denies any chest pain, palpitations, shortness of breath, tachycardia Respiratory: Denies any shortness of breath, cough, wheeze, stridor GI/: Positive right-sided abdominal pain/flank, denies nausea, vomiting, diarrhea, bright red blood per rectum, melanotic stools, urinary frequency, urinary retention, dysuria, hematuria MSK: Denies any joint pain, muscle pains, swelling Skin: Denies any rashes, lesions, discoloration Neuro: Denies any headache, lightheadedness, dizziness, fainting, weakness Psych: Denies SI/HI Patient History Medical History DVT (deep venous thrombosis) History of left heart catheterization (12/2019) Atrial fibrillation Paroxysmal A-fib RBBB LAFB (left anterior fascicular block) First degree AV block History of transcatheter aortic valve replacement (TAVR) (08/01/18) Sleep apnea CAD (coronary artery disease) Stress incontinence Enlarged lymph node Chronic anticoagulation Androgen deprivation therapy Stress incontinence, male History of radiation therapy Hydronephrosis, right Prostate cancer Osteoarthritis Hypertension Gout Depression History of prostate cancer Arthritis GERD (gastroesophageal reflux disease) Diabetes Congestive heart failure Pacemaker Surgical History AICD (automatic cardioverter/defibrillator) present (12/30/20) Hx of heart artery stent History of back surgery H/O aortic valve replacement Family History Mother Coronary artery disease involving bypass graft of transplanted heart Cancer Hypertension Social History marital status: number of children: 3 household members: caregiver and none Previous occupational history: retired Smoking Status: Former smoker alcohol intake: former caffeine: Yes Smoking Status: Former smoker tobacco type: cigarettes alcohol intake frequency: 0-2 drinks per day Exam Narrative Exam Narrative: General: Cooperative, comfortable, well-developed, not in acute distress HEENT: Normocephalic, atraumatic, PERRLA, normal sclera, eyelids normal, Neck: Active full range of motion, atraumatic Chest: Normal to inspection, negative crepitus, no overlying erythema ecchymosis Respiratory: Normal respiratory effort, not in acute respiratory distress, clear to auscultation bilaterally negative cough, wheeze, tachypnea, rhonchi, rales Cardiology: Regular rate rhythm negative gallop, murmur, rubs GI/: Normal to inspection, soft, nonrigid, no tenderness to palpation, exam deferred MSK: Full range of active range of motion of all 4 extremities, atraumatic Skin: No rashes lesions noted, nephrostomy tube in place on the right draining appropriate fluid Neuro: Alert awake oriented x3, moves all 4 extremities spontaneously, cranial nerves intact, able to answer all questions appropriately follows commands appropriately Psych: Cooperative, negative suicidal or homicidal ideations Initial Vital Signs Initial Vital Signs: Vital Signs Temperature 97.5 F L 07/09/24 23:08 Pulse Rate 65 07/09/24 23:08 Respiratory Rate 20 07/09/24 23:08 Blood Pressure 139/62 07/09/24 23:08 Pulse Oximetry 100 07/09/24 23:08 Oxygen Delivery Method Room Air 07/09/24 23:08 Course Orders Ordered: ED Orders 07/09/24 23:18 Complete Blood Count AUTO DIFF Stat Comprehensive Metabolic Panel Stat Lipase Stat 07/09/24 23:20 EKG-12 Lead Stat 07/09/24 23:50 CT abdomen pelvis wo con Stat 07/10/24 00:34 Urine Microscopic Stat Discontinued Medications Hydromorphone HCl (Hydromorphone 0.5 Mg Inj) 0.5 mg IV NOW ONE Stop: 07/09/24 23:52 Last Admin: 07/10/24 00:07 Dose: 0.5 mg Documented By: TODD Ondansetron HCl (Ondansetron 4 Mg/2 Ml Inj) 4 mg IV NOW ONE Stop: 07/09/24 23:53 Last Admin: 07/10/24 00:06 Dose: 4 mg Documented By: TODD Vital Signs Vital signs: Vital Signs - 8 hr 07/09/24 23:08 07/10/24 00:11 Temperature 97.5 F L Pulse Rate 65 60 Respiratory Rate 20 18 Blood Pressure 139/62 Pulse Oximetry 100 94 Oxygen Delivery Method Room Air MDM - Abdominal Pain Differential Diagnosis Differential diagnosis: Likely other (Colitis, pyelonephritis, urinary tract infection, diverticulitis) Lab Data 07/09/24 23:18 07/09/24 23:18 Labs: Lab Results 07/09/24 07/10/24 Range/Units 23:18 00:34 WBC 9.3 (4.5-11.0) X10^3/uL RBC 4.00 L (4.5-5.9) X10^6/uL Hgb 11.5 L (13.5-17.5) g/dL Hct 34.5 L (41-53) % MCV 86.2 (80-100) fL MCH 28.8 (26-34) PG MCHC 33.4 (30-36) % RDW 18.1 H (11.6-14.8) % Plt Count 223 (150-400) X10^3/uL Neut % (Auto) 72.8 (50-75) % Lymph % (Auto) 17.3 L (25-40) % [place] % (Auto) 6.5 (3-14) % Eos % (Auto) 2.4 (2-4) % Baso % (Auto) 1.0 (0-2) % Neut # (Auto) 6800 (6006-3448) /uL Lymph # (Auto) 1600 (9340-1937) /uL [place] # (Auto) 600 (0-900) /uL Eos # (Auto) 200 (0-450) /uL Baso # (Auto) 100 (0-100) /uL Sodium 134 L (137-145) mmol/L Potassium 4.5 (3.4-5.1) mmol/L Chloride 102 (98-107) mmol/L Carbon Dioxide 26 (22-32) mmol/L BUN 30 H (9-20) mg/dL Creatinine 1.59 H (0.66-1.25) mg/dL Estimated GFR 45 L (>60) mL/min BUN/Creatinine Ratio 18.9 (6-22) Glucose 174 H (80-110) mg/dL Calcium 8.7 (8.4-10.2) mg/dL Total Bilirubin 0.3 (0.2-1.3) mg/dL AST 24 (17-59) IU/L ALT 21 (<50) IU/L Alkaline Phosphatase 102 (38-126) U/L Total Protein 6.8 (6.3-8.2) g/dL Albumin 4.0 (3.5-5.0) g/dL Globulin 2.8 (1.7-4.1) g/dL Albumin/Globulin Ratio 1.4 (1.0-2.8) Lipase 67 (23-300) U/L Urine RBC 0-1/hpf (0-5/HPF) Urine WBC None seen (0-5/HPF) Ur Squamous Epith Cells 0-1 /hpf (0-5/HPF) Urine Bacteria Occasional (0-1) (None) Ur Culture Indicated? Cult not indicated Vol Urine Centrifuged 10ml (spun) Imaging Data CT scan - abdomen/pelvis: Radiologist's Impression: [address] [address] [address] Scan Report Signed Patient: Erick Álvarez V MR#: [id number] : 1950 Acct:[id number] Age/Sex: 74 / M Date of Service: 07/09/24 Loc: ED Accession Number: [id number] Procedure: CT abdomen pelvis wo con Ordering Provider: Jamaal Gonzalez D.O. PROCEDURE: CT ABDOMEN PELVIS WO CON INDICATIONS: right sided abd /flank pain with nephrostomy tube TECHNIQUE: Axial sections were acquired from the lung bases to the pubic symphysis. Coronal and sagittal reformats were performed. For radiation dose reduction, the following was used: automated exposure control, adjustment of mA and/or kV according to patient size. COMPARISON: [facility], [place], RENAL LIMITED, 01/29/2024, 16:53. CT, CT ABDOMEN PELVIS W CON, 08/12/2023, 6:36. [facility], CT, CT ABDOMEN PELVIS WO CON, 12/14/2022, 1:37. FINDINGS: Image quality: Diagnostic. Lower Chest: No significant findings. URINARY: Right Kidney: Markedly atrophic with nephrostomy tube. No obstruction. No stones. Right Ureter: No hydroureter. Left Kidney: No stones or hydronephrosis. Left Ureter: No hydroureter. Bladder: Normal wall thickness. No stones. ABDOMEN: Liver: No contour-deforming solid mass. Gallbladder: No radiopaque gallstones or wall thickening. Biliary ducts: No biliary dilation. Pancreas: No ductal dilation. Spleen: Size is within normal limits. Adrenal Glands: No adrenal nodules. Stomach and Bowel: Normal colonic caliber, without significant wall thickening. Peritoneum: No abnormal intraperitoneal fluid. No free air. Ventral Wall: No hernia. Abdominal Nodes: Marked interval increase in size and number retroperitoneal as well as right pelvic sidewall lymph node/mass lesions. The largest retroperitoneal node is in the aortic caval region on series 2 image 73 measuring 3.3 x 3.6 cm compared to 1.0 x 2.1 cm. Right pelvic sidewall mass measures approximately 7.1 x 5.6 cm compared to 5.2 x 4.0 cm. Vessels: Aorta and inferior vena cava are normal in size. PELVIS: Pelvic Organs: Unremarkable. Pelvic Nodes: Unremarkable. Miscellaneous: No inguinal hernias are seen. Bones: Unremarkable. IMPRESSION: No obstructing stones or hydronephrosis. Interval increase in size of retroperitoneal as well as right pelvic sidewall adenopathy, consistent with disease progression. ECG Data Interpretation: EKG interpreted ED physician, atrially sensed ventricularly paced at 60, QTC 508, MDM Narrative Medical decision making narrative: 74-year-old male history of CAD, CHF, AFib status post AICD on warfarin, aortic stenosis status post TAVR, diabetes, prostate cancer with right retroperitoneal mass status post right nephrostomy tube, comes into the ED via EMS from assisted living for evaluation of right-sided flank pain x2 hours, no nausea vomiting diarrhea, states that he did try taking Vicodin at around 9:30 a.m. without any relief therefore decided come into the ED for further evaluation treatment. Urinalysis not consistent with an acute urinary tract infection. Lab work baseline and unremarkable, no leukocytosis, hemoglobin 11.5 which is baseline for him, creatinine 1.59 which is near his baseline as well, CT scan did show interval increase in his known retroperitoneal right-sided mass. 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 Disease processes change and evolve, if your symptoms worsen or if you develop any new symptoms that are concerning to you please return for evaluation. Your evaluation today does not show any evidence of any life-threatening/serious illnesses requiring admission to the hospital or surgery. Please follow-up with your doctor for re-evaluation in approximately 1 day. Seek immediate medical attention for any worrisome symptoms. *If you do not have a primary care provider please contact the [facility] Resource line at [phone]. They will ask some questions about your medical history and help get you set up with a doctor in the community. Prescriptions: No Action acetaminophen 325 mg Tablet 650 mg PO Q4H PRN (Reason: pain) atorvastatin 40 mg Tablet 40 mg PO BEDTIME Antacid (calcium carbonate) 215 mg calcium (500 mg) Tablet,Chewable 500 mg DAILY Rx Instructions: AM furosemide 40 mg Tablet 40 mg PO DAILY gabapentin 300 mg Tablet 600 mg PO BID ferrous sulfate 325 mg (65 mg iron) Tablet 325 mg PO DAILY metoprolol succinate 25 mg Tablet Extended Release 24 Hr 12.5 mg PO DAILY Rx Instructions: Hold for SBP < 100, HR < 60 lisinopril 2.5 mg Tablet 2.5 mg PO DAILY insulin glargine 100 unit/mL Cartridge 10 unit SUBCUT QPM pramipexole [Mirapex] 0.5 mg Tablet 0.5 mg PO DAILY pantoprazole [Protonix] 40 mg Tablet,Delayed Release (Dr/Ec) 40 mg PO DAILY ropinirole 1 mg Tablet 2 mg PO BID tolterodine [Detrol LA] 4 mg Capsule,Extended Release 24hr 4 mg PO DAILY sertraline [Zoloft] 50 mg Tablet 50 mg PO DAILY insulin lispro 100 unit/mL Cartridge 1 sliding scale dose SUBCUT USEASDIRECTD Patient Comments: No coverage if CBG less than 150 spironolactone 25 mg tablet 25 mg PO BID bicalutamide 50 mg tablet 50 mg PO DAILY Rx Instructions: Prostate CA ondansetron 4 mg tablet,disintegrating 8 mg PO Q6H PRN (Reason: Nausea) warfarin enoxaparin 100 mg/mL syringe 100 mg SUBCUT DAILY Patient Comments: [NO ORIGINAL SIG] sennosides [senna] 8.6 mg tablet 17.2 mg PO BEDTIME PRN (Reason: Constipation) hydrocodone-acetaminophen 5-325 mg tablet 2 tab PO Q6H PRN (Reason: pain) Qty: 30 0RF oxycodone [OxyContin] 10 mg tablet,oral only,ext.rel.12 hr 10 mg PO BID Qty: 14 0RF hydroxyzine pamoate [Vistaril] 25 mg capsule 25 mg PO PRN PRN (Reason: Sleep) Referrals: Lizbeth Schaefer ARNP [Primary Care Provider] - Stand Alone Forms: Patient Portal/API/Survey
[2024-07-09 23:28] LABS: Add Manual Diff / Slide Review NO; Basophils Absolute Auto 100 /uL (0-100); Eosinophils Absolute Auto 200 /uL (0-450); Eosinophils Percent Auto 2.4 % (2-4); Hematocrit 34.5 % (41-53); Hemoglobin 11.5 g/dL (13.5-17.5); Lymphocytes Absolute Auto 1600 /uL (1100-4500); Lymphocytes Percent Auto 17.3 % (25-40); Mean Corpuscular HGB Conc 33.4 % (30-36); Mean Corpuscular Hemoglobin 28.8 PG (26-34); Mean Corpuscular Volume 86.2 fL (80-100); Monocytes Absolute Auto 600 /uL (0-900); Monocytes Percent Auto 6.5 % (3-14); Neutrophils Absolute Auto 6800 /uL (1500-7000); Neutrophils Percent Auto 72.8 % (50-75); Platelet Count 223 X10^3/uL (150-400); Red Cell Distribution Width 18.1 % (11.6-14.8); White Blood Cell Count 9.3 X10^3/uL (4.5-11.0)
[2024-07-09 23:33] LABS: Alanine Aminotransferase 21 IU/L (<50); Albumin Globulin Ratio 1.4 (1.0-2.8); Alkaline Phosphatase 102 U/L (38-126); Aspartate Aminotransferase 24 IU/L (17-59); BUN Creatinine Ratio 18.9 (6-22); Bilirubin Total 0.3 mg/dL (0.2-1.3); Blood Urea Nitrogen 30 mg/dL (9-20); Calcium 8.7 mg/dL (8.4-10.2); Carbon Dioxide 26 mmol/L (22-32); Chloride 102 mmol/L (98-107); Estimated Glomerular Filt Rate 45 mL/min (>60); Globulin 2.8 g/dL (1.7-4.1); Glucose 174 mg/dL (80-110); HEMOLYSIS < 15 (0-50); Lipase 67 U/L (23-300); Potassium 4.5 mmol/L (3.4-5.1); Sodium 134 mmol/L (137-145); Total Protein 6.8 g/dL (6.3-8.2)
--- NOTE | 2024-07-09 23:50 | DI.CT.S_ITS ---
PROCEDURE: CT ABDOMEN PELVIS WO CON INDICATIONS: right sided abd /flank pain with nephrostomy tube TECHNIQUE: Axial sections were acquired from the lung bases to the pubic symphysis. Coronal and sagittal reformats were performed. For radiation dose reduction, the following was used: automated exposure control, adjustment of mA and/or kV according to patient size. COMPARISON: [facility], US, US RENAL LIMITED, 01/29/2024, 16:53. CT, CT ABDOMEN PELVIS W CON, 08/12/2023, 6:36. [facility], CT, CT ABDOMEN PELVIS WO CON, 12/14/2022, 1:37. FINDINGS: Image quality: Diagnostic. Lower Chest: No significant findings. URINARY: Right Kidney: Markedly atrophic with nephrostomy tube. No obstruction. No stones. Right Ureter: No hydroureter. Left Kidney: No stones or hydronephrosis. Left Ureter: No hydroureter. Bladder: Normal wall thickness. No stones. ABDOMEN: Liver: No contour-deforming solid mass. Gallbladder: No radiopaque gallstones or wall thickening. Biliary ducts: No biliary dilation. Pancreas: No ductal dilation. Spleen: Size is within normal limits. Adrenal Glands: No adrenal nodules. Stomach and Bowel: Normal colonic caliber, without significant wall thickening. Peritoneum: No abnormal intraperitoneal fluid. No free air. Ventral Wall: No hernia. Abdominal Nodes: Marked interval increase in size and number retroperitoneal as well as right pelvic sidewall lymph node/mass lesions. The largest retroperitoneal node is in the aortic caval region on series 2 image 73 measuring 3.3 x 3.6 cm compared to 1.0 x 2.1 cm. Right pelvic sidewall mass measures approximately 7.1 x 5.6 cm compared to 5.2 x 4.0 cm. Vessels: Aorta and inferior vena cava are normal in size. PELVIS: Pelvic Organs: Unremarkable. Pelvic Nodes: Unremarkable. Miscellaneous: No inguinal hernias are seen. Bones: Unremarkable. IMPRESSION: No obstructing stones or hydronephrosis. Interval increase in size of retroperitoneal as well as right pelvic sidewall adenopathy, consistent with disease progression. Dictated by: Lindsey Holder M.D. on 07/10/2024 at 1:02 Approved by: Lindsey Holder M.D. on 07/10/2024 at 1:05
--- NOTE | 2024-07-10 00:01 | EKG_ITS ---
[address] [address] Test Date: 2024-07-10 Pat Name: Erick Álvarez Department: [facility] Room: Gender: Male [employer]bf[employer] Developer: RADHA SHELTON : 1950 Requested By: Order Number: [id number] Reading MD: Measurements Intervals [place] Rate: 60 P: 12 IN: 176 QRS: 145 QRSD: 164 T: 18 QT: 508 QTc: 508 Interpretive Statements Atrial-sensed ventricular-paced rhythm
[2024-07-10] MEDS: ONDANSETRON 4 MG/2 ML INJ IV (00:06)
[2024-07-10] MEDS: HYDROMORPHONE 0.5 MG INJ IV (00:07)
[2024-07-10 00:11] VITALS: PULSE 60; RESP 18; O2SAT 94
--- NOTE | 2024-07-10 00:18 | PC.NURSE ---
Pt to imaging via ED stretcher with telephone technician
[2024-07-10 00:57] LABS: RBC Urine 0-1/HPF (0-5/HPF); Squamous Epithelial Cell Urine 0-1 /HPF (0-5/HPF); Urine Volume 10mL (spun); WBC Urine None Seen (0-5/HPF)
[2024-07-10 00:58] LABS: Bacteria Urine Occasional (0-1)
[2024-07-10 00:59] LABS: Culture Indicated Urine Cult Not Indicated
--- NOTE | 2024-07-10 01:44 | PC.NURSE ---
Daughter on the way to take pt home.
[2024-07-10 02:08] VITALS: BP 167/67; PULSE 71; RESP 22; O2SAT 97
== END 2024-07-10 02:08 | disposition home or self-care (01) ==
PROVIDERS: Emergency Provider Student in an Organized Health Care Education/Training Program; PCP Nurse Practitioner Family
DX: R19.00 Intra-abdominal and pelvic swelling, mass and lump, unspecified site (principal); Z79.01 Long term (current) use of anticoagulants; Z95.2 Presence of prosthetic heart valve; I25.10 Atherosclerotic heart disease of native coronary artery without angina pectoris
CPT/HCPCS: 36415; 74176; 80053; 81015; 83690; 85025; 93005; 96374; 96375; 99284; J1171; J2405

== ENCOUNTER → 2024-07-12 06:06 | Outpatient (ROUT) | payer MEDICARE, MEDICAID, SELFPAY ==
[2023-08-13 01:09] VITALS: BMI 33.5
[2024-07-12 07:54] LABS: INR 3.1 (0.9-1.3); Prothrombin Time 34.1 SECONDS (9.4-12.5)
== END ==
PROVIDERS: PCP Nurse Practitioner Family; Visit Provider Registered Nurse
DX: I48.91 Unspecified atrial fibrillation (principal); Z79.01 Long term (current) use of anticoagulants
CPT/HCPCS: 36415; 85610

== ENCOUNTER → 2024-07-19 06:28 | Outpatient (ROUT) | payer MEDICARE, MEDICAID, SELFPAY ==
[2023-08-13 01:09] VITALS: BMI 33.5
[2024-07-19 09:10] LABS: INR 3.4 (0.9-1.3); Prothrombin Time 37.2 SECONDS (9.4-12.5)
== END ==
PROVIDERS: PCP Nurse Practitioner Family; Visit Provider Registered Nurse
DX: I48.91 Unspecified atrial fibrillation (principal); Z79.01 Long term (current) use of anticoagulants
CPT/HCPCS: 36415; 85610

== ENCOUNTER → 2024-07-25 08:48 | Outpatient (CLI) | payer MEDICARE, MEDICAID, SELFPAY ==
[2023-08-13 01:09] VITALS: BMI 33.5
--- NOTE | 2024-07-25 08:49 | DI.ECHO.S_ITS ---
[facility]+ [facility] : : [address] : : [place] : : [address] : : Phone: [phone] Echocardiogram Report + + :Name: SREEDHAR PALACIO Study Date: 07/25/2024 Height: 69 in : :Hospital ReadingLocation: Weight: 242 lb : : Gender: Male BSA: 2.2 m2 : :: 1950 Age: 74 yrs BP: 118/69 mmHg: :Reason For Study: S/P TAVR : :Ordering Physician: GUME, : :ERNESTINA Performed By: Silvia Call : :Referring: ERNESTINA DUNAWAY : + + Interpretation Summary The left ventricle is normal in size. The left ventricular ejection fraction is normal. The ejection fraction is estimated to be 60-65%. Previously LVEF about 45%. Compared to the prior exam, the left ventricular function is improved. The right ventricle is normal in size and function. There is a pacemaker lead in the right ventricle. There is a bioprosthetic aortic valve. The prosthetic aortic valve is well-seated. The prosthetic aortic valve is not well visualized. The peak aortic velocity is 2.5 m/sec. The aortic valve mean gradient is 17 mmHg. The peak aortic velocity on the previous exam was 2.49 m/sec. No aortic regurgitation is present. There is no hemodynamically significant valvular aortic stenosis. The IVC is of normal diameter and collapses greater than 50% with a sniff. This suggests a low right atrial pressure of 3 mm Hg. Mild atherosclerotic plaque(s) in the descending aorta. Procedure: A two-dimensional transthoracic echocardiogram with color flow and Doppler was performed. The study quality was technically adequate. Comparison is made with the echocardiogram of 04/02/2021. The heart rate ranged between 60-76 bpm during the study. The patient has a paced rhythm. Left Ventricle: The left ventricle is normal in size. Left ventricular wall thickness is mildly increased. There is no thrombus. The ejection fraction is estimated to be 60-65%. The left ventricular ejection fraction is normal. Compared to the prior exam, the left ventricular function is improved. Septal motion is consistent with conduction abnormality. MV E/A: 0.80 Med Peak E' Jasbir: 6.1 cm/sec E/E' med: 10.6. Right Ventricle: The right ventricle is normal in size and function. There is a pacemaker lead in the right ventricle. Atria: The left atrial size is normal. There has been no significant change since the previous study. There is a catheter/pacemaker lead seen in the right atrium. Right atrial size is normal. There is no Doppler evidence for an interatrial shunt. The thickening of interatrial septum suggests lipomatous hypertrophy. Mitral Valve: The mitral valve leaflets appear to open well. There is no mitral annular calcification. There is mild mitral regurgitation. Compared to the prior echo study, there has been no change in the severity of mitral regurgitation. Aortic Valve: There is a bioprosthetic aortic valve. The prosthetic aortic valve is well-seated. The prosthetic aortic valve is not well visualized. The peak aortic velocity is 2.5 m/sec. The aortic valve mean gradient is 17 mmHg. The peak aortic velocity on the previous exam was 2.49 m/sec. There is no hemodynamically significant valvular aortic stenosis. No aortic regurgitation is present. Tricuspid Valve: The tricuspid valve leaflets are thin and pliable. There is trace tricuspid regurgitation. The right ventricular systolic pressure is estimated to be at least 28 mmHg based on an estimated right atrial pressure of 3 mm Hg. Pulmonic Valve: The pulmonic valve is not well visualized. There is no pulmonic valvular regurgitation. Great Vessels: The dimensions of the ascending aorta are normal. Mild atherosclerotic plaque(s) in the descending aorta. The IVC is of normal diameter and collapses greater than 50% with a sniff. This suggests a low right atrial pressure of 3 mm Hg. Pericardium/ Pleura There is an anterior echo-free space consistent with a fat pad. There is no pleural effusion. MMode/2D Measurements & Calculations LVIDd: 5.2 cm LVOT diam: 2.0 cm LVIDs: 3.6 cm asc Aorta Diam: 3.7 cm FS: 30.0 % Ao Arch Diam (Prox Trans): 3.6 cm IVSd: 1.0 cm LVPWd: 1.1 cm LV ramirez. diameter/BSA (cm/m^2): 2.3 LV sys. diameter/BSA (cm/m^2): 1.6 LA A2 area: 19.4 cm2 RA long axis: 5.8 cm LA A4 area: 21.7 cm2 RA area: 19.9 cm2 LA length (vol): 5.8 cm RA vol: 58.0 ml LA vol: 61.5 ml RA : 25.9 ml/m2 LA vol index: 27.5 ml/m2 IVC diam: 2.0 cm RVD1 (basal): 3.9 cm TAPSE: 2.3 cm Doppler Measurements & Calculations Ao V2 max: 254.4 cm/sec LVOT Max Jasbir: 88.8 cm/sec Ao V2 mean: 182.7 cm/sec LV V1 max P.2 mmHg Ao max P.1 mmHg LV V1 VTI: 18.8 cm Ao mean P.7 mmHg [place](I,D): 1.1 cm2 Ao V2 VTI: 50.2 cm [place](V,D): 1.1 cm2 sev ratio: 0.37 [place] indexed to BSA (cm^2/m^2): 0.51 MV E max jasbir: 64.5 cm/sec TR max jasbir: 251.9 cm/sec MV A max jsabir: 80.1 cm/sec TR max P.4 mmHg MV E/A: 0.80 PA V2 max: 76.8 cm/sec Med Peak E' Jasbir: 6.1 cm/sec PA V2 mean: 57.7 cm/sec E/E' med: 10.6 PA mean P.4 mmHg Lat Peak E' Jasbir: 6.6 cm/sec PA pr(Accel): 27.6 mmHg E/E' lat: 9.8 E/e' average: 10.2 MV dec time: 0.29 sec SV(LVOT): 57.2 ml Reading Physician:02:47 PM
== END ==
PROVIDERS: PCP Nurse Practitioner Family; Referring Provider Internal Medicine Cardiovascular Disease; Visit Provider Internal Medicine Cardiovascular Disease
DX: I34.0 Nonrheumatic mitral (valve) insufficiency (principal); I70.0 Atherosclerosis of aorta; Z95.0 Presence of cardiac pacemaker; Z95.3 Presence of xenogenic heart valve
CPT/HCPCS: 93306

== ENCOUNTER → 2024-07-26 06:08 | Outpatient (ROUT) | payer MEDICARE, MEDICAID, SELFPAY ==
[2023-08-13 01:09] VITALS: BMI 33.5
[2024-07-26 08:20] LABS: INR 2.5 (0.9-1.3); Prothrombin Time 27.4 SECONDS (9.4-12.5)
== END ==
PROVIDERS: Registered Nurse; PCP Nurse Practitioner Family
DX: I48.91 Unspecified atrial fibrillation (principal)
CPT/HCPCS: 36415; 85610

== ENCOUNTER → 2024-08-15 15:18 | Outpatient (ROUT) | payer MEDICARE, MEDICAID, SELFPAY ==
[2023-08-13 01:09] VITALS: BMI 33.5
[2024-08-15 15:33] LABS: Prothrombin Time 11.7 SECONDS (9.4-12.5)
== END ==
PROVIDERS: PCP Nurse Practitioner Family; Visit Provider Registered Nurse
DX: I48.91 Unspecified atrial fibrillation (principal); Z79.01 Long term (current) use of anticoagulants
CPT/HCPCS: 85610

== ENCOUNTER → 2024-08-23 06:11 | Outpatient (ROUT) | payer MEDICARE, MEDICAID, SELFPAY ==
[2023-08-13 01:09] VITALS: BMI 33.5
[2024-08-23 07:28] LABS: INR 1.7 (0.9-1.3); Prothrombin Time 18.5 SECONDS (9.4-12.5)
== END ==
PROVIDERS: PCP Nurse Practitioner Family
DX: I48.91 Unspecified atrial fibrillation (principal); Z79.01 Long term (current) use of anticoagulants
CPT/HCPCS: 36415; 85610

== ENCOUNTER → 2024-08-30 06:19 | Outpatient (ROUT) | payer MEDICARE, MEDICAID, SELFPAY ==
[2023-08-13 01:09] VITALS: BMI 33.5
[2024-08-30 07:54] LABS: INR 2.6 (0.9-1.3); Prothrombin Time 28.5 SECONDS (9.4-12.5)
== END ==
PROVIDERS: PCP Nurse Practitioner Family; Visit Provider Registered Nurse
DX: I48.91 Unspecified atrial fibrillation (principal)
CPT/HCPCS: 36415; 85610

== ENCOUNTER 2024-09-03 22:05 | Emergency (ER) | payer MEDICARE, MEDICAID, SELFPAY ==
[2023-08-13 01:09] VITALS: BMI 33.5
[2024-09-03] VITALS (7 sets, daily range): BP systolic 134–143; BP diastolic 63–74; PULSE 69–89; RESP 17–22; TEMP 37; O2SAT 91–95; BMI 34.8
--- NOTE | 2024-09-03 22:35 | ED_ITS ---
HPI - Abdominal Pain General Chief Complaint: Urogenital-Male Stated Complaint: L flank pain Time Seen by Provider: 09/03/24 22:14 Source: EMS Mode of arrival: Ambulatory History of Present Illness HPI narrative: Patient is a 74-year-old male significant past medical history of coronary artery disease congestive heart failure atrial fibrillation AICD on warfarin aortic stenosis TAVR diabetes prostate cancer right retroperitoneal mass with right nephrostomy tube comes in today with left-sided flank pain. He reports increasing weakness some chest pain some shortness of breath. Left flank pain he feels like he has maybe been hot and cold today no fever now. No abdominal pain no nausea no vomiting Related Data Home Medications Medication Instructions Recorded Confirmed acetaminophen 325 mg tablet 650 mg PO Q4H PRN pain 06/13/22 11/26/23 atorvastatin 40 mg tablet 40 mg PO BEDTIME 06/13/22 11/26/23 calcium carbonate (Antacid 500 mg DAILY 06/13/22 08/12/23 (calcium carbonate)) ferrous sulfate 325 mg (65 mg 325 mg PO DAILY 06/13/22 08/12/23 iron) tablet furosemide 40 mg tablet 40 mg PO DAILY 06/13/22 11/26/23 gabapentin 300 mg tablet 600 mg PO BID 06/13/22 11/26/23 insulin glargine 100 unit/mL 10 unit SUBCUT QPM 06/13/22 11/26/23 subcutaneous cartridge insulin lispro 100 unit/mL 1 sliding scale dose SUBCUT 06/13/22 11/26/23 subcutaneous cartridge USEASDIRECTD lisinopril 2.5 mg tablet 2.5 mg PO DAILY 06/13/22 11/26/23 metoprolol succinate 25 mg 12.5 mg PO DAILY 06/13/22 11/26/23 tablet,extended release 24 hr pantoprazole 40 mg tablet,delayed 40 mg PO DAILY 06/13/22 11/26/23 release (Protonix) pramipexole 0.5 mg tablet (Mirapex) 0.5 mg PO DAILY 06/13/22 08/12/23 ropinirole 1 mg tablet 2 mg PO BID 06/13/22 11/26/23 sertraline 50 mg tablet (Zoloft) 50 mg PO DAILY 06/13/22 08/12/23 tolterodine 4 mg capsule,extended 4 mg PO DAILY 06/13/22 11/26/23 release 24 hr (Detrol LA) hydroxyzine pamoate 25 mg capsule 25 mg PO PRN PRN Sleep 08/03/22 11/26/23 (Vistaril) bicalutamide 50 mg tablet 50 mg PO DAILY 12/14/22 08/12/23 ondansetron 4 mg disintegrating 8 mg PO Q6H PRN Nausea 12/14/22 08/12/23 tablet spironolactone 25 mg tablet 25 mg PO BID 12/14/22 11/26/23 sennosides 8.6 mg tablet (senna) 17.2 mg PO BEDTIME PRN Constipation 08/12/23 08/12/23 warfarin 11/22/23 enoxaparin 100 mg/mL subcutaneous 100 mg SUBCUT DAILY 11/26/23 11/26/23 syringe Previous Rx's Medication Instructions Recorded hydrocodone 5 mg-acetaminophen 325 2 tab PO Q6H PRN pain #30 tabs 08/16/23 mg tablet oxycodone 10 mg tablet,crush 10 mg PO BID #14 tabs 08/16/23 resistant,extended release 12 hr (OxyContin) cefdinir 300 mg capsule 300 mg PO Q12H #14 caps 09/04/24 cefdinir 300 mg capsule 300 mg PO Q12H #14 caps 09/04/24 Allergies Allergy/AdvReac Type Severity Reaction Status Date / Time crab Allergy Severe Deathly Verified 11/26/23 08:50 sick aspartame Allergy Unknown Verified 11/26/23 08:50 carbidopa Allergy Hallucinations, Verified 11/26/23 08:50 anxiety morphine AdvReac Nausea/vomi Verified 11/26/23 08:50 ting Patient History Medical History DVT (deep venous thrombosis) History of left heart catheterization (12/2019) Atrial fibrillation Paroxysmal A-fib RBBB LAFB (left anterior fascicular block) First degree AV block History of transcatheter aortic valve replacement (TAVR) (08/01/18) Sleep apnea CAD (coronary artery disease) Stress incontinence Enlarged lymph node Chronic anticoagulation Androgen deprivation therapy Stress incontinence, male History of radiation therapy Hydronephrosis, right Prostate cancer Osteoarthritis Hypertension Gout Depression History of prostate cancer Arthritis GERD (gastroesophageal reflux disease) Diabetes Congestive heart failure Pacemaker Surgical History AICD (automatic cardioverter/defibrillator) present (12/30/20) Hx of heart artery stent History of back surgery H/O aortic valve replacement Family History Mother Coronary artery disease involving bypass graft of transplanted heart Cancer Hypertension Social History marital status: number of children: 3 household members: caregiver and none Previous occupational history: retired Smoking Status: Former smoker alcohol intake: former caffeine: Yes Smoking Status: Former smoker tobacco type: cigarettes alcohol intake frequency: 0-2 drinks per day Exam Initial Vital Signs Initial Vital Signs: Vital Signs Temperature 98.6 F 09/03/24 22:07 Pulse Rate 80 09/03/24 22:07 Respiratory Rate 22 09/03/24 22:07 Blood Pressure 142/71 H 09/03/24 22:07 Pulse Oximetry 95 09/03/24 22:07 Oxygen Delivery Method Room Air 09/03/24 22:07 GENERAL: Alert chronically ill 74-year-old male and in no acute distress. HEENT: Head atraumatic,EOMI, pupils reactive, face symmetric, moist mucous membranes CARDIOVASCULAR: Regular rate and rhythm without murmurs, rubs or gallops. RESPIRATORY: Breath sounds equal bilaterally, no wheezes rales or rhonchi. ABDOMEN: Soft, nontender. Normoactive bowel sounds all 4 quadrants. No guarding or rebound. : Left flank pain tender to palpation. Right flank nephrostomy tube in place no surrounding erythema EXTREMITIES: Normal range of motion, no clubbing or edema. Neurovascularly intact NEUROLOGICAL: Alert and oriented x4.Normal gait and speech. SKIN: Warm, dry, no laceration, no petechiae, no rashes or lesions. Course Orders Ordered: ED Orders 09/03/24 22:35 XR chest 1V Stat 09/03/24 22:36 EKG-12 Lead Stat 09/03/24 22:50 Complete Blood Count AUTO DIFF Stat Comprehensive Metabolic Panel Stat Lactate (Lactic Acid) Stat NT-proBNP (BNP-Adult 18+) Stat PTT Partial Thromboplastin Jose Stat Procalcitonin Stat Prothrombin Time INR Stat Troponin & CK Cardiac Panel Stat 09/03/24 22:55 Blood Culture Stat 09/03/24 23:00 Urinalysis and Microscopic Stat Urine Culture Stat 09/03/24 23:42 CT abdomen pelvis wo con Stat 09/04/24 00:59 UA Complete [Urinalysis and Microscopic] Stat Discontinued Medications Ceftriaxone Sodium 1,000 mg/ (Sodium Chloride) 100 mls @ 200 mls/hr IV NOW ONE Stop: 09/03/24 23:43 Last Infusion: 09/04/24 00:53 Dose: Infused Documented By: Admin: 09/04/24 00:13 Dose: 200 mls/hr Documented By: Sodium Chloride (Normal Saline 0.9%) 1,000 mls @ 1,000 mls/hr IV BOLUS ONE Stop: 09/04/24 01:41 Last Infusion: 09/04/24 01:54 Dose: Infused Documented By: Admin: 09/04/24 01:05 Dose: 1,000 mls/hr Documented By: Vital Signs Vital signs: Vital Signs - 8 hr 09/03/24 22:30 09/03/24 22:30 09/03/24 23:00 Pulse Rate 79 74 Respiratory Rate 20 Blood Pressure 134/63 Pulse Oximetry 92 09/03/24 23:30 09/04/24 00:00 09/04/24 00:30 Pulse Rate 69 65 66 Respiratory Rate 17 16 19 Blood Pressure Pulse Oximetry 91 93 95 09/04/24 01:02 09/04/24 01:30 09/04/24 02:00 Pulse Rate 84 60 61 Respiratory Rate 29 H 14 15 Blood Pressure Pulse Oximetry 94 95 96 09/04/24 02:30 09/04/24 02:37 09/04/24 02:37 Pulse Rate 65 63 Respiratory Rate 16 18 Blood Pressure 125/60 Pulse Oximetry 96 96 09/04/24 03:00 09/04/24 03:30 09/04/24 04:00 Pulse Rate 62 62 60 Respiratory Rate 15 18 16 Blood Pressure Pulse Oximetry 93 94 96 09/04/24 04:30 09/04/24 05:00 09/04/24 05:30 Pulse Rate 60 61 61 Respiratory Rate 17 18 14 Blood Pressure Pulse Oximetry 97 97 95 09/04/24 06:00 09/04/24 06:06 09/04/24 06:08 Pulse Rate 61 72 Respiratory Rate 16 24 Blood Pressure 130/62 Pulse Oximetry 96 94 MDM - Abdominal Pain Lab Data 09/03/24 22:50 09/03/24 22:50 Labs: Lab Results 09/03/24 09/03/24 09/04/24 Range/Units 22:50 23:00 00:59 WBC 10.3 (4.5-11.0) X10^3/uL RBC 3.70 L (4.5-5.9) X10^6/uL Hgb 10.5 L (13.5-17.5) g/dL Hct 31.3 L (41-53) % MCV 84.5 (80-100) fL MCH 28.5 (26-34) PG MCHC 33.7 (30-36) % RDW 17.6 H (11.6-14.8) % Plt Count 179 (150-400) X10^3/uL Neut % (Auto) 75.4 H (50-75) % Lymph % (Auto) 10.7 L (25-40) % [place] % (Auto) 5.1 (3-14) % Eos % (Auto) 8.3 H (2-4) % Baso % (Auto) 0.5 (0-2) % Neut # (Auto) 7700 H (0380-8914) /uL Lymph # (Auto) 1100 (7328-7178) /uL [place] # (Auto) 500 (0-900) /uL Eos # (Auto) 900 H (0-450) /uL Baso # (Auto) 0 (0-100) /uL PT 26.9 H (9.4-12.5) SECONDS INR 2.4 H (0.9-1.3) APTT 61 H (25.1-36.5) SECONDS Sodium 135 L (137-145) mmol/L Potassium 4.1 (3.4-5.1) mmol/L Chloride 102 (98-107) mmol/L Carbon Dioxide 24 (22-32) mmol/L BUN 21 H (9-20) mg/dL Creatinine 1.61 H (0.66-1.25) mg/dL Estimated GFR 44 L (>60) mL/min BUN/Creatinine Ratio 13.0 (6-22) Glucose 263 H (80-110) mg/dL Lactate 2.1 1.6 (0.7-2.1) mmol/L Calcium 8.8 (8.4-10.2) mg/dL Total Bilirubin 0.2 (0.2-1.3) mg/dL AST 25 (17-59) IU/L ALT 18 (<50) IU/L Alkaline Phosphatase 101 (38-126) U/L Total Creatine Kinase 28 L (55-170) U/L Troponin I < 0.012 (0.01-0.034) ng/mL NT-Pro-B Natriuret Pep 148 (<450) pg/mL Total Protein 6.4 (6.3-8.2) g/dL Albumin 3.6 (3.5-5.0) g/dL Globulin 2.8 (1.7-4.1) g/dL Albumin/Globulin Ratio 1.3 (1.0-2.8) Procalcitonin 0.185 (<0.5) ng/mL Urine Color Straw Yellow Urine Appearance Cloudy Clear Urine pH 6.0 5.5 (4.5-8.0) Ur Specific [place] 1.015 1.020 (1.000-1.035) Urine Protein 2+ H Negative (Negative) Urine Glucose (UA) Negative Negative (Negative) g/dL Urine Ketones Negative Negative (NEGATIVE) Urine Occult Blood 2+ H Negative (Negative) Urine Nitrate Positive H Negative (Negative) Urine Bilirubin Negative Negative (NEGATIVE) Urine Urobilinogen 0.2 0.2 (0.2) E.U./dL Ur Leukocyte Esterase 3+ H Negative (NEGATIVE) Urine RBC 1-5/hpf 0-1/hpf (0-5/HPF) Urine WBC 10-30/hpf H 0-1/hpf D (0-5/HPF) Ur Squamous Epith Cells 0-1 /hpf 0-1 /hpf (0-5/HPF) Urine Bacteria Many (>30) H Few (2-10) H D (None) Ur Culture Indicated? Specimen cultured Cult not indicated Vol Urine Centrifuged 10ml (spun) 10ml (spun) Imaging Data Chest x-ray: Radiologist's Impression: PROCEDURE: XR CHEST 1V INDICATIONS: short of breath TECHNIQUE: One view of the chest was acquired. COMPARISON: [facility], CR, XR CHEST 1V, 08/12/2023, 5:48. FINDINGS: Surgical changes and devices: Left chest wall AICD device with cardiac leads. TAVR. Lungs and pleura: Mild streaky opacity at the left lung base favored to represent atelectasis. No focal dense airspace consolidation. No pleural effusions or pneumothorax. Mediastinum: Mediastinal contours appear normal. Heart size is normal. Bones and chest wall: No suspicious bony lesions. Overlying soft tissues appear unremarkable. IMPRESSION: Mild streaky opacities left lung base favored to represent atelectasis. No focal dense airspace consolidation. Approved by: Carmen Bigsg M.D.,Ph.D. on 09/03/2024 at 23:59 CT scan - abdomen/pelvis: Radiologist's Impression: PROCEDURE: CT ABDOMEN PELVIS WO CON INDICATIONS: left flank pain TECHNIQUE: Axial sections were acquired from the lung bases to the pubic symphysis. Coronal and sagittal reformats were performed. For radiation dose reduction, the following was used: automated exposure control, adjustment of mA and/or kV according to patient size. COMPARISON: [facility], CT, CT ABDOMEN PELVIS WO CON, 07/10/2024, 0:03. FINDINGS: Image quality: Diagnostic. Lower Chest: No significant findings. URINARY: Right Kidney: Atrophic. Similar positioning of percutaneous nephrostomy tube . No stones or nephrolithiasis. Right Ureter: No hydroureter. Left Kidney: No stones or hydronephrosis. Left Ureter: No hydroureter. Bladder: Normal wall thickness. No stones. ABDOMEN: Liver: No contour-deforming solid mass. Gallbladder: No radiopaque gallstones or wall thickening. Biliary ducts: No biliary dilation. Pancreas: No ductal dilation. Spleen: Size is within normal limits. Adrenal Glands: No adrenal nodules. Stomach and Bowel: Normal colonic caliber, without significant wall thickening. Peritoneum: No abnormal intraperitoneal fluid. No free air. Ventral Wall: No hernia. Abdominal Nodes: Redemonstration of enlarged retroperitoneal and right pelvic sidewall lymph nodes/lymph conglomerate. For example, left para aortic lymph node measures 2.2 x 2.0 cm (), previously 2.3 by 1.9 cm on 07/10/2024 (remeasured). Vessels: Aorta and inferior vena cava are normal in size. PELVIS: Pelvic Organs: Unremarkable. Pelvic Nodes: Unremarkable. Miscellaneous: No inguinal hernias are seen. Bones: Unremarkable. IMPRESSION: No obstructing stones or hydronephrosis. Stable positioning of right percutaneous nephrostomy tube. Compared to prior CT 07/10/2024, there is similar retroperitoneal and right pelvic sidewall adenopathy. Approved by: Carmen Biggs M.D.,Ph.D. on 09/04/2024 at 2:25 ECG Data Attestation: I personally reviewed and interpreted this ECG as follows: Prior ECG tracings: available for review Interpretation: Paced rhythm similar to previous EKGs rate 77 MDM Narrative Medical decision making narrative: MDM CC: Left flank pain Complicating co-morbidities: coronary artery disease congestive heart failure atrial fibrillation AICD on warfarin aortic stenosis TAVR, nephrostomy tube on the right side Data collected from: Patient Medical records reviewed: ED visit 07/09/2024 Echo 07/25/2024 normal left ventricular size EF normal 60-65% improved left ventricular function Previous urine culture from 08/12/2023 shows multi-drug resistant Klebsiella and Alcaligenes both sensitive to Bactrim resistant to Rocephin Differential considered: Renal mass nephrolithiasis obstruction Exam documented above, pertinent findings include: Chronically ill 74-year-old male tender on left flank but abdomen is soft nontender breath sounds are clear no peripheral edema nephrostomy tube in place Lab Test results independently reviewed as above. Pertinent findings: CBC no leukocytosis anemia stable CMP electrolytes stable sodium is 135 creatinine stable at 1.61 previously 1.59 no significant electrolyte abnormality Bilirubin liver enzymes within normal limits Troponin negative BNP 148 Lactic acid 2.1 Independently reviewed EKG as above Paced rhythm no ischemia Imaging studies independently reviewed: Chest x-ray no acute intracranial process CT abdomen pelvis no cause for left flank pain otherwise stable Treatments: Rocephin Re-evaluations: Patient remains stable does not want anything for pain but it was offered a couple time Discussion: Patient 74-year-old male history multiple comorbidities presenting today with left-sided flank pain. Blood work has been reviewed overall reassuring urinalysis is positive for nitrates. He actually had 2 urines 1 from the nephrostomy tube which is positive for nitrates in the other was a clean- catch which also has bacteria. he has blood cultures pending. He has no leukocytosis lactate 2.1 vitals are stable. He does not any pain. At this time probable UTI/pyelonephritis. At this time appropriate for outpatient treatment no need for admission We did for [employer] cab in the morning for patient to go home Discharge Plan Departure Patient Disposition: Home Clinical Impression: Acute UTI Instructions: DI for Urinary Tract Infection (UTI) Activity Restrictions/Additional Instructions: *You have been diagnosed with UTI *What to do: At this time we will start you on an antibiotic for infection *Continue to take medications as directed Cefdinir 300 mg twice a day for 7 days *Follow up with your primary care provider in 2-3 days or call [phone] *Return to ER if you should have increasing pain nausea vomiting weakness chest pain shortness of breath [or] any new, worsening or concerning symptoms Prescriptions: New cefdinir 300 mg capsule 300 mg PO Q12H Qty: 14 0RF cefdinir 300 mg capsule 300 mg PO Q12H Qty: 14 0RF No Action acetaminophen 325 mg Tablet 650 mg PO Q4H PRN (Reason: pain) atorvastatin 40 mg Tablet 40 mg PO BEDTIME Antacid (calcium carbonate) 215 mg calcium (500 mg) Tablet,Chewable 500 mg DAILY Rx Instructions: AM furosemide 40 mg Tablet 40 mg PO DAILY gabapentin 300 mg Tablet 600 mg PO BID ferrous sulfate 325 mg (65 mg iron) Tablet 325 mg PO DAILY metoprolol succinate 25 mg Tablet Extended Release 24 Hr 12.5 mg PO DAILY Rx Instructions: Hold for SBP < 100, HR < 60 lisinopril 2.5 mg Tablet 2.5 mg PO DAILY insulin glargine 100 unit/mL Cartridge 10 unit SUBCUT QPM pramipexole [Mirapex] 0.5 mg Tablet 0.5 mg PO DAILY pantoprazole [Protonix] 40 mg Tablet,Delayed Release (Dr/Ec) 40 mg PO DAILY ropinirole 1 mg Tablet 2 mg PO BID tolterodine [Detrol LA] 4 mg Capsule,Extended Release 24hr 4 mg PO DAILY sertraline [Zoloft] 50 mg Tablet 50 mg PO DAILY insulin lispro 100 unit/mL Cartridge 1 sliding scale dose SUBCUT USEASDIRECTD Patient Comments: No coverage if CBG less than 150 spironolactone 25 mg tablet 25 mg PO BID bicalutamide 50 mg tablet 50 mg PO DAILY Rx Instructions: Prostate CA ondansetron 4 mg tablet,disintegrating 8 mg PO Q6H PRN (Reason: Nausea) warfarin enoxaparin 100 mg/mL syringe 100 mg SUBCUT DAILY Patient Comments: [NO ORIGINAL SIG] sennosides [senna] 8.6 mg tablet 17.2 mg PO BEDTIME PRN (Reason: Constipation) hydrocodone-acetaminophen 5-325 mg tablet 2 tab PO Q6H PRN (Reason: pain) Qty: 30 0RF oxycodone [OxyContin] 10 mg tablet,oral only,ext.rel.12 hr 10 mg PO BID Qty: 14 0RF hydroxyzine pamoate [Vistaril] 25 mg capsule 25 mg PO PRN PRN (Reason: Sleep) Referrals: Lizbeth Schaefer ARNP [Primary Care Provider] - Stand Alone Forms: Patient Portal/API/Survey
--- NOTE | 2024-09-03 22:43 | EKG_ITS ---
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
[2024-09-03 23:09] LABS: INR 2.4 (0.9-1.3); Prothrombin Time 26.9 SECONDS (9.4-12.5)
[2024-09-03 23:14] LABS: Lactate (Lactic Acid) 2.1 mmol/L (0.7-2.1)
[2024-09-03 23:15] LABS: Alanine Aminotransferase 18 IU/L (<50); Albumin 3.6 g/dL (3.5-5.0); Albumin Globulin Ratio 1.3 (1.0-2.8); Alkaline Phosphatase 101 U/L (38-126); Aspartate Aminotransferase 25 IU/L (17-59); Bilirubin Total 0.2 mg/dL (0.2-1.3); Blood Urea Nitrogen 21 mg/dL (9-20); Calcium 8.8 mg/dL (8.4-10.2); Carbon Dioxide 24 mmol/L (22-32); Chloride 102 mmol/L (98-107); Creatine Kinase 28 U/L (55-170); Estimated Glomerular Filt Rate 44 mL/min (>60); Globulin 2.8 g/dL (1.7-4.1); Glucose 263 mg/dL (80-110); HEMOLYSIS < 15 (0-50); Potassium 4.1 mmol/L (3.4-5.1); Sodium 135 mmol/L (137-145); Total Protein 6.4 g/dL (6.3-8.2)
[2024-09-03 23:17] LABS: Add Manual Diff / Slide Review NO; Basophils Absolute Auto 0 /uL (0-100); Basophils Percent Auto 0.5 % (0-2); Eosinophils Absolute Auto 900 /uL (0-450); Eosinophils Percent Auto 8.3 % (2-4); Hematocrit 31.3 % (41-53); Hemoglobin 10.5 g/dL (13.5-17.5); Lymphocytes Absolute Auto 1100 /uL (1100-4500); Lymphocytes Percent Auto 10.7 % (25-40); Mean Corpuscular HGB Conc 33.7 % (30-36); Mean Corpuscular Hemoglobin 28.5 PG (26-34); Mean Corpuscular Volume 84.5 fL (80-100); Monocytes Absolute Auto 500 /uL (0-900); Monocytes Percent Auto 5.1 % (3-14); Neutrophils Absolute Auto 7700 /uL (1500-7000); Neutrophils Percent Auto 75.4 % (50-75); Platelet Count 179 X10^3/uL (150-400); Red Cell Distribution Width 17.6 % (11.6-14.8); White Blood Cell Count 10.3 X10^3/uL (4.5-11.0)
[2024-09-03 23:20] LABS: Appearance Urine UA CLOUDY; Bilirubin Urine UA NEGATIVE (NEGATIVE); Glucose Urine UA NEGATIVE (Negative); Ketones Urine UA NEGATIVE (NEGATIVE); Leukocyte Esterase Urine UA 3+ (NEGATIVE); Nitrite Urine UA POSITIVE (Negative); Occult Blood Urine UA 2+ (Negative); Protein Urine UA 2+ (Negative); Specific Gravity Urine UA 1.015 (1.000-1.035); Urobilinogen Urine UA 0.2 E.U./dL (0.2)
[2024-09-03 23:20] LABS: PTT Partial Thromboplastin Tim 61 SECONDS (25.1-36.5)
[2024-09-03 23:23] LABS: Color Urine UA Straw
[2024-09-03 23:23] LABS: NT-proBNP (BNP-Adult 18+) 148 pg/mL (<450)
[2024-09-03 23:26] LABS: Urine Volume 10mL (spun)
[2024-09-03 23:27] LABS: RBC Urine 1-5/HPF (0-5/HPF); WBC Urine 10-30/HPF (0-5/HPF)
[2024-09-03 23:27] LABS: Troponin I < 0.012 ng/mL (0.01-0.034)
[2024-09-03 23:28] LABS: Bacteria Urine Many (>30)
[2024-09-03 23:29] LABS: Culture Indicated Urine Specimen Cultured; Squamous Epithelial Cell Urine 0-1 /HPF (0-5/HPF)
[2024-09-03 23:32] LABS: Procalcitonin 0.185 ng/mL (<0.5)
--- NOTE | 2024-09-03 23:42 | DI.CT.S_ITS ---
PROCEDURE: CT ABDOMEN PELVIS WO CON INDICATIONS: left flank pain TECHNIQUE: Axial sections were acquired from the lung bases to the pubic symphysis. Coronal and sagittal reformats were performed. For radiation dose reduction, the following was used: automated exposure control, adjustment of mA and/or kV according to patient size. COMPARISON: [facility], CT, CT ABDOMEN PELVIS WO CON, 07/10/2024, 0:03. FINDINGS: Image quality: Diagnostic. Lower Chest: No significant findings. URINARY: Right Kidney: Atrophic. Similar positioning of percutaneous nephrostomy tube . No stones or nephrolithiasis. Right Ureter: No hydroureter. Left Kidney: No stones or hydronephrosis. Left Ureter: No hydroureter. Bladder: Normal wall thickness. No stones. ABDOMEN: Liver: No contour-deforming solid mass. Gallbladder: No radiopaque gallstones or wall thickening. Biliary ducts: No biliary dilation. Pancreas: No ductal dilation. Spleen: Size is within normal limits. Adrenal Glands: No adrenal nodules. Stomach and Bowel: Normal colonic caliber, without significant wall thickening. Peritoneum: No abnormal intraperitoneal fluid. No free air. Ventral Wall: No hernia. Abdominal Nodes: Redemonstration of enlarged retroperitoneal and right pelvic sidewall lymph nodes/lymph conglomerate. For example, left para aortic lymph node measures 2.2 x 2.0 cm (2/54), previously 2.3 by 1.9 cm on 07/10/2024 (remeasured). Vessels: Aorta and inferior vena cava are normal in size. PELVIS: Pelvic Organs: Unremarkable. Pelvic Nodes: Unremarkable. Miscellaneous: No inguinal hernias are seen. Bones: Unremarkable. IMPRESSION: No obstructing stones or hydronephrosis. Stable positioning of right percutaneous nephrostomy tube. Compared to prior CT 07/10/2024, there is similar retroperitoneal and right pelvic sidewall adenopathy. Approved by: Carmen Biggs M.D.,Ph.D. on 09/04/2024 at 2:25
[2024-09-04] VITALS (16 sets, daily range): BP systolic 125–130; BP diastolic 60–62; PULSE 60–84; RESP 14–29; O2SAT 93–97
[2024-09-04] MEDS: cefTRIAXone 1,000 MG in SODIUM CHLORIDE 0.9% 100 ML 200 MG IV (00:13)
[2024-09-04 00:31] LABS: Reflexed Lactate in 2 Hours Y
[2024-09-04] MEDS: SODIUM CHLORIDE 0.9% 1,000 ML 1000 ML IV (01:05)
[2024-09-04 01:21] LABS: Lactate 2HR (Lactic Acid Rflx) 1.6 mmol/L (0.7-2.1)
[2024-09-04 02:05] LABS: Appearance Urine UA CLEAR; Bilirubin Urine UA NEGATIVE (NEGATIVE); Color Urine UA YELLOW; Glucose Urine UA NEGATIVE (Negative); Ketones Urine UA NEGATIVE (NEGATIVE); Leukocyte Esterase Urine UA NEGATIVE (NEGATIVE); Nitrite Urine UA NEGATIVE (Negative); Occult Blood Urine UA NEGATIVE (Negative); Protein Urine UA NEGATIVE (Negative); Urobilinogen Urine UA 0.2 E.U./dL (0.2); pH Urine UA 5.5 (4.5-8.0)
[2024-09-04 02:09] LABS: Urine Volume 10mL (spun)
[2024-09-04 02:11] LABS: Bacteria Urine Few (2-10); RBC Urine 0-1/HPF (0-5/HPF); WBC Urine 0-1/HPF (0-5/HPF)
[2024-09-04 02:12] LABS: Culture Indicated Urine Cult Not Indicated; Squamous Epithelial Cell Urine 0-1 /HPF (0-5/HPF)
--- NOTE | 2024-09-04 03:52 | PC.NURSE ---
Patient ready for discharge but will be staying until he has a ride in the morning. Patient sleeping comfortably at this time
== END 2024-09-04 06:18 | disposition home or self-care (01) ==
PROVIDERS: Emergency Provider Emergency Medicine; PCP Nurse Practitioner Family
DX: N39.0 Urinary tract infection, site not specified (principal); R06.02 Shortness of breath; Z86.79 Personal history of other diseases of the circulatory system; I48.91 Unspecified atrial fibrillation; Z79.01 Long term (current) use of anticoagulants
CPT/HCPCS: 36415; 71045; 74176; 80053; 81001; 82550; 83605; 83880; 84145; 84484; 85025; 85610; 85730; 87040; 87077; 87086; 87147; 87186; 93005; 96361; 96365; 99284; J0696

== ENCOUNTER → 2024-09-06 06:21 | Outpatient (ROUT) | payer MEDICARE, MEDICAID, SELFPAY ==
[2023-08-13 01:09] VITALS: BMI 33.5
[2024-09-06 07:55] LABS: INR 2.6 (0.9-1.3); Prothrombin Time 28.8 SECONDS (9.4-12.5)
== END ==
PROVIDERS: PCP Nurse Practitioner Family; Visit Provider Registered Nurse
DX: I48.91 Unspecified atrial fibrillation (principal)
CPT/HCPCS: 36415; 85610

== ENCOUNTER 2024-09-13 10:18 | Emergency (ER) | payer MEDICARE, MEDICAID, SELFPAY ==
[2023-08-13 01:09] VITALS: BMI 33.5
[2024-09-13] VITALS (15 sets, daily range): BP systolic 117–132; BP diastolic 58–71; PULSE 67–84; RESP 15–20; TEMP 37.2; O2SAT 92–100; BMI 32.8
--- NOTE | 2024-09-13 10:36 | ED_ITS ---
HPI - General Adult General Chief complaint: Weakness Stated complaint: Pain All Over Time Seen by Provider: 09/13/24 10:19 Source: patient and EMS Mode of arrival: EMS History of Present Illness HPI narrative: 74-year-old gentleman with a history of coronary artery disease, congestive heart failure, anticoagulated on warfarin, AICD in place, prior TAVR, diabetes and a right retroperitoneal mass with a right nephrostomy tube. Currently lives at [facility] and this morning apparently woke up in his usual state of health and staff were concerned that he is significantly less responsive. He has no acute neurologic findings other than being globally weak. He will follow specific directions such as ?take a deep breath? but otherwise not responding to direct questioning. Related Data Home Medications Medication Instructions Recorded Confirmed acetaminophen 325 mg tablet 650 mg PO Q4H PRN pain 06/13/22 11/26/23 atorvastatin 40 mg tablet 40 mg PO BEDTIME 06/13/22 11/26/23 calcium carbonate (Antacid 500 mg DAILY 06/13/22 08/12/23 (calcium carbonate)) ferrous sulfate 325 mg (65 mg 325 mg PO DAILY 06/13/22 08/12/23 iron) tablet furosemide 40 mg tablet 40 mg PO DAILY 06/13/22 11/26/23 gabapentin 300 mg tablet 600 mg PO BID 06/13/22 11/26/23 insulin glargine 100 unit/mL 10 unit SUBCUT QPM 06/13/22 11/26/23 subcutaneous cartridge insulin lispro 100 unit/mL 1 sliding scale dose SUBCUT 06/13/22 11/26/23 subcutaneous cartridge USEASDIRECTD lisinopril 2.5 mg tablet 2.5 mg PO DAILY 06/13/22 11/26/23 metoprolol succinate 25 mg 12.5 mg PO DAILY 06/13/22 11/26/23 tablet,extended release 24 hr pantoprazole 40 mg tablet,delayed 40 mg PO DAILY 06/13/22 11/26/23 release (Protonix) pramipexole 0.5 mg tablet (Mirapex) 0.5 mg PO DAILY 06/13/22 08/12/23 ropinirole 1 mg tablet 2 mg PO BID 06/13/22 11/26/23 sertraline 50 mg tablet (Zoloft) 50 mg PO DAILY 06/13/22 08/12/23 tolterodine 4 mg capsule,extended 4 mg PO DAILY 06/13/22 11/26/23 release 24 hr (Detrol LA) hydroxyzine pamoate 25 mg capsule 25 mg PO PRN PRN Sleep 08/03/22 11/26/23 (Vistaril) bicalutamide 50 mg tablet 50 mg PO DAILY 12/14/22 08/12/23 ondansetron 4 mg disintegrating 8 mg PO Q6H PRN Nausea 12/14/22 08/12/23 tablet spironolactone 25 mg tablet 25 mg PO BID 12/14/22 11/26/23 sennosides 8.6 mg tablet (senna) 17.2 mg PO BEDTIME PRN Constipation 08/12/23 08/12/23 warfarin 11/22/23 enoxaparin 100 mg/mL subcutaneous 100 mg SUBCUT DAILY 11/26/23 11/26/23 syringe Previous Rx's Medication Instructions Recorded hydrocodone 5 mg-acetaminophen 325 2 tab PO Q6H PRN pain #30 tabs 08/16/23 mg tablet oxycodone 10 mg tablet,crush 10 mg PO BID #14 tabs 08/16/23 resistant,extended release 12 hr (OxyContin) cefdinir 300 mg capsule 300 mg PO Q12H #14 caps 09/04/24 cefdinir 300 mg capsule 300 mg PO Q12H #14 caps 09/04/24 Allergies Allergy/AdvReac Type Severity Reaction Status Date / Time crab Allergy Severe Deathly Verified 11/26/23 08:50 sick aspartame Allergy Unknown Verified 11/26/23 08:50 carbidopa Allergy Hallucinations, Verified 11/26/23 08:50 anxiety morphine AdvReac Nausea/vomi Verified 11/26/23 08:50 ting Review of Systems Review of Systems ROS Unobtainable: Unobtainable due to medical condition Patient History Medical History DVT (deep venous thrombosis) History of left heart catheterization (12/2019) Atrial fibrillation Paroxysmal A-fib RBBB LAFB (left anterior fascicular block) First degree AV block History of transcatheter aortic valve replacement (TAVR) (08/01/18) Sleep apnea CAD (coronary artery disease) Stress incontinence Enlarged lymph node Chronic anticoagulation Androgen deprivation therapy Stress incontinence, male History of radiation therapy Hydronephrosis, right Prostate cancer Osteoarthritis Hypertension Gout Depression History of prostate cancer Arthritis GERD (gastroesophageal reflux disease) Diabetes Congestive heart failure Pacemaker Surgical History AICD (automatic cardioverter/defibrillator) present (12/30/20) Hx of heart artery stent History of back surgery H/O aortic valve replacement Family History Mother Coronary artery disease involving bypass graft of transplanted heart Cancer Hypertension Social History marital status: number of children: 3 household members: caregiver and none Previous occupational history: retired Smoking Status: Former smoker alcohol intake: former caffeine: Yes Smoking Status: Former smoker tobacco type: cigarettes alcohol intake frequency: 0-2 drinks per day Exam Initial Vital Signs Initial Vital Signs: Vital Signs Temperature 98.9 F 09/13/24 10:28 Pulse Rate 82 09/13/24 10:28 Respiratory Rate 20 09/13/24 10:28 Blood Pressure 120/60 09/13/24 10:28 Pulse Oximetry 100 09/13/24 10:28 Oxygen Delivery Method Room Air 09/13/24 10:28 General: Chronically ill-appearing, pale, HEENT: Dry mucous membranes, normal sclera with reactive pupils, Respiratory: Lungs are clear to auscultation, no wheezing no rales no rhonchi. Full and symmetrical air movement Cardiac: Regular rate and rhythm no murmurs no bruits Abdomen: Significant tenderness with abdominal exam particularly in the midepigastrium Skin: Pale, dry Neurologic: He is moving all extremities, globally weak, difficult to tell if there actually is localizing weakness but I do not think so at this time Extremities: No trauma, Psych: Cooperative, not otherwise responsive Course Orders Ordered: ED Orders 09/13/24 10:25 Complete Blood Count AUTO DIFF Stat Comprehensive Metabolic Panel Stat Lactate (Lactic Acid) Stat Lipase Stat Magnesium Stat Procalcitonin Stat Prothrombin Time INR Stat Troponin I Stat 09/13/24 10:43 CT head/brain wo con Stat 09/13/24 11:37 Urinalysis and Microscopic Stat Urine Culture Stat 09/13/24 11:42 Urinalysis and Microscopic Stat 09/13/24 12:15 Blood Culture Stat 09/13/24 14:10 Covid-19 + FLU A/B + RSV - PCR Stat 09/13/24 15:36 EKG-12 Lead Routine Discontinued Medications Oxycodone/Acetaminophen (Oxycodone/Acetaminophen 5/325 Tablet) 1 tab PO NOW ONE Stop: 09/13/24 14:02 Last Admin: 09/13/24 14:06 Dose: 1 tab Documented By: Vital Signs Vital signs: Vital Signs - 8 hr 09/13/24 10:28 09/13/24 10:47 09/13/24 10:48 Temperature 98.9 F Pulse Rate 82 81 Respiratory Rate 20 17 Blood Pressure 120/60 121/64 Pulse Oximetry 100 93 Oxygen Delivery Method Room Air 09/13/24 10:48 09/13/24 10:56 09/13/24 10:56 Temperature Pulse Rate 82 84 Respiratory Rate 17 17 Blood Pressure 132/65 Pulse Oximetry 94 95 Oxygen Delivery Method 09/13/24 11:00 09/13/24 11:00 09/13/24 11:22 Temperature Pulse Rate 80 Respiratory Rate 17 20 Blood Pressure 123/63 Pulse Oximetry 93 93 Oxygen Delivery Method 09/13/24 11:24 09/13/24 11:30 09/13/24 11:30 Temperature Pulse Rate 79 Respiratory Rate 18 Blood Pressure 129/71 128/70 Pulse Oximetry 95 Oxygen Delivery Method 09/13/24 12:00 09/13/24 12:00 09/13/24 12:30 Temperature Pulse Rate 75 72 Respiratory Rate 17 16 Blood Pressure 117/64 Pulse Oximetry 92 94 Oxygen Delivery Method 09/13/24 12:30 09/13/24 13:00 09/13/24 13:00 Temperature Pulse Rate 78 72 Respiratory Rate 16 15 Blood Pressure 128/70 123/71 Pulse Oximetry 94 Oxygen Delivery Method Room Air 09/13/24 13:30 09/13/24 13:30 09/13/24 14:00 Temperature Pulse Rate 69 71 Respiratory Rate 20 18 Blood Pressure 125/69 Pulse Oximetry 93 93 Oxygen Delivery Method 09/13/24 14:00 09/13/24 14:30 09/13/24 14:30 Temperature Pulse Rate 72 Respiratory Rate 17 Blood Pressure 119/61 124/59 L Pulse Oximetry 94 Oxygen Delivery Method Room Air 09/13/24 15:00 09/13/24 15:00 Temperature Pulse Rate 67 Respiratory Rate 16 Blood Pressure 123/58 L Pulse Oximetry 95 Oxygen Delivery Method Room Air Medical Decision Making Lab Data 09/13/24 10:25 09/13/24 10:25 Labs: Lab Results 09/13/24 09/13/24 09/13/24 Range/Units 10: 11:37 11:42 WBC 11.1 H (4.5-11.0) X10^3/uL RBC 3.75 L (4.5-5.9) X10^6/uL Hgb 10.6 L (13.5-17.5) g/dL Hct 32.2 L (41-53) % MCV 85.7 (80-100) fL MCH 28.2 (26-34) PG MCHC 32.9 (30-36) % RDW 17.8 H (11.6-14.8) % Plt Count 206 (150-400) X10^3/uL Neut % (Auto) 77.1 H (50-75) % Lymph % (Auto) 11.0 L (25-40) % Mineral % (Auto) 6.0 (3-14) % Eos % (Auto) 5.1 H (2-4) % Baso % (Auto) 0.8 (0-2) % Neut # (Auto) 8600 H (0963-7784) /uL Lymph # (Auto) 1200 (0664-8743) /uL Mineral # (Auto) 700 (0-900) /uL Eos # (Auto) 600 H (0-450) /uL Baso # (Auto) 100 (0-100) /uL PT 24.6 H (9.4-12.5) SECONDS INR 2.2 H (0.9-1.3) Sodium 135 L (137-145) mmol/L Potassium 4.0 (3.4-5.1) mmol/L Chloride 102 (98-107) mmol/L Carbon Dioxide 21 L (22-32) mmol/L BUN 20 (9-20) mg/dL Creatinine 1.51 H (0.66-1.25) mg/dL Estimated GFR 48 L (>60) mL/min BUN/Creatinine Ratio 13.2 (6-22) Glucose 226 H (80-110) mg/dL Lactate 1.9 (0.7-2.1) mmol/L Calcium 9.1 (8.4-10.2) mg/dL Magnesium 1.7 (1.6-2.3) mg/dL Total Bilirubin 0.5 (0.2-1.3) mg/dL AST 22 (17-59) IU/L ALT 16 (<50) IU/L Alkaline Phosphatase 94 (38-126) U/L Troponin I < 0.012 (0.01-0.034) ng/mL Total Protein 6.9 (6.3-8.2) g/dL Albumin 3.8 (3.5-5.0) g/dL Globulin 3.1 (1.7-4.1) g/dL Albumin/Globulin Ratio 1.2 (1.0-2.8) Lipase 53 (23-300) U/L Procalcitonin 0.227 (<0.5) ng/mL Urine Color Yellow Yellow Urine Appearance Sl cloudy Clear Urine pH 6.5 5.5 (4.5-8.0) Ur Specific [place] 1.010 1.015 (1.000-1.035) Urine Protein Trace H Negative (Negative) Urine Glucose (UA) 1+ H Negative (Negative) g/dL Urine Ketones Negative Negative (NEGATIVE) Urine Occult Blood Negative Negative (Negative) Urine Nitrate Negative Negative (Negative) Urine Bilirubin Negative Negative (NEGATIVE) Urine Urobilinogen 0.2 0.2 (0.2) E.U./dL Ur Leukocyte Esterase 1+ H Negative (NEGATIVE) Urine RBC None seen None seen (0-5/HPF) Urine WBC 1-5/hpf None seen (0-5/HPF) Ur Squamous Epith Cells None seen None seen (0-5/HPF) Urine Bacteria Moderate (10-30) H None seen (None) Ur Culture Indicated? Specimen cultured Cult not indicated Vol Urine Centrifuged 10ml (spun) 10ml (spun) SARS-CoV-2 (PCR) (Negative) Influenza A (RT-PCR) (NEGATIVE) Influenza B (RT-PCR) (NEGATIVE) RSV (PCR) (Negative) 09/13/24 Range/Units 14:10 WBC (4.5-11.0) X10^3/uL RBC (4.5-5.9) X10^6/uL Hgb (13.5-17.5) g/dL Hct (41-53) % MCV (80-100) fL MCH (26-34) PG MCHC (30-36) % RDW (11.6-14.8) % Plt Count (150-400) X10^3/uL Neut % (Auto) (50-75) % Lymph % (Auto) (25-40) % Mineral % (Auto) (3-14) % Eos % (Auto) (2-4) % Baso % (Auto) (0-2) % Neut # (Auto) (6579-5446) /uL Lymph # (Auto) (2656-1469) /uL Mineral # (Auto) (0-900) /uL Eos # (Auto) (0-450) /uL Baso # (Auto) (0-100) /uL PT (9.4-12.5) SECONDS INR (0.9-1.3) Sodium (137-145) mmol/L Potassium (3.4-5.1) mmol/L Chloride (98-107) mmol/L Carbon Dioxide (22-32) mmol/L BUN (9-20) mg/dL Creatinine (0.66-1.25) mg/dL Estimated GFR (>60) mL/min BUN/Creatinine Ratio (6-22) Glucose (80-110) mg/dL Lactate (0.7-2.1) mmol/L Calcium (8.4-10.2) mg/dL Magnesium (1.6-2.3) mg/dL Total Bilirubin (0.2-1.3) mg/dL AST (17-59) IU/L ALT (<50) IU/L Alkaline Phosphatase (38-126) U/L Troponin I (0.01-0.034) ng/mL Total Protein (6.3-8.2) g/dL Albumin (3.5-5.0) g/dL Globulin (1.7-4.1) g/dL Albumin/Globulin Ratio (1.0-2.8) Lipase (23-300) U/L Procalcitonin (<0.5) ng/mL Urine Color Urine Appearance Urine pH (4.5-8.0) Ur Specific [place] (1.000-1.035) Urine Protein (Negative) Urine Glucose (UA) (Negative) g/dL Urine Ketones (NEGATIVE) Urine Occult Blood (Negative) Urine Nitrate (Negative) Urine Bilirubin (NEGATIVE) Urine Urobilinogen (0.2) E.U./dL Ur Leukocyte Esterase (NEGATIVE) Urine RBC (0-5/HPF) Urine WBC (0-5/HPF) Ur Squamous Epith Cells (0-5/HPF) Urine Bacteria (None) Ur Culture Indicated? Vol Urine Centrifuged SARS-CoV-2 (PCR) Negative (Negative) Influenza A (RT-PCR) Flu a negative (NEGATIVE) Influenza B (RT-PCR) Flu b negative (NEGATIVE) RSV (PCR) Negative (Negative) MDM Narrative Medical decision making narrative: CC: Altered level of consciousness Complicating co-morbidities: Retroperitoneal mass, nephrostomy tube, pacemaker with AICD, congestive heart failure, Data collected from: [facility] Social determinants of health that may influence the patients condition: Complex medical history currently at [facility] form from 2023 indicates DNR with selective treatment Medical records reviewed: ER notes from November 03 diagnosed with urinary tract infection and started on cefdinir b.i.d. for 7 days. ER note from July 09 with newly diagnosed retroperitoneal mass is reviewed Differential considered: Sepsis, viral symptoms, intracranial bleed, Exam documented above, pertinent findings include: Pale, globally weak, decreased interaction but holding his head up without difficulty and will help with body positioning to facilitate physical exam Lab Test results independently reviewed as above. Pertinent findings: CBC shows slight leukocytosis at 11.1 with minimal left shift, chronic stable anemia Chemistries show normal potassium, stable creatinine at 1.5, no liver abnormalities Troponin is undetectable Procalcitonin is not elevated Urine does not look infected Independently reviewed EKG: EKG shows a paced rhythm at 82 Imaging studies independently reviewed: CT scan of the head does not show acute abnormality Re-evaluations: 2pm patient is re-evaluated. Dramatic improvement. He is awake alert and appropriate. Able to completely describe the events of today. States that he all of a sudden felt weak, could tell everything that was going on around him and wanted to make sure that he was able to get to the ER as there was not nurse's available during the day in his assisted living facility. At this time he is fully engaged in seemingly back to his baseline. He is wondering if he may have COVID, we will check this. I am wondering if there may be psychogenic component to his significant weakness with spontaneous resolution. Discussion: 74-year-old gentleman who awoke this morning in his usual state of health, then felt dramatically week. On arrival in the emergency department his eyes were open, he would follow direct commands but seemed completely disassociated. Workup is entirely unremarkable and patient is actually back to his baseline. He is affable, chatting, no specific complaints describes a sensation of being completely weak and unable to move but still being aware of all of his surroundings. He thinks that he may have had a similar episode to this a number of years ago. There was no definitive diagnosis at that time either. No evidence of stroke, infection, COVID or influenza, heart failure, heart attack or seizure. Patient is discharged home Discharge Plan Departure Patient Disposition: Home Clinical Impression: Acute alteration in mental status Activity Restrictions/Additional Instructions: Thank you for coming in today I do not have a full explanation for this episode where you were not able to normally respond to your surroundings. I do know you did not have a stroke, it was not a TIA, there were no masses or tumors in your brain, there was no signs of infection, sepsis, heart failure, heart attack, significant electrolyte abnormalities or other explanation. Your urine today looks like it is clearing nicely, please complete the full course of antibiotics you were on for the prior urinary tract infection Please continue all of your usual medications If you find that you are getting worse or develop any new symptoms, please feel free to return to the emergency department for further evaluation. Prescriptions: No Action acetaminophen 325 mg Tablet 650 mg PO Q4H PRN (Reason: pain) atorvastatin 40 mg Tablet 40 mg PO BEDTIME Antacid (calcium carbonate) 215 mg calcium (500 mg) Tablet,Chewable 500 mg DAILY Rx Instructions: AM furosemide 40 mg Tablet 40 mg PO DAILY gabapentin 300 mg Tablet 600 mg PO BID ferrous sulfate 325 mg (65 mg iron) Tablet 325 mg PO DAILY metoprolol succinate 25 mg Tablet Extended Release 24 Hr 12.5 mg PO DAILY Rx Instructions: Hold for SBP < 100, HR < 60 lisinopril 2.5 mg Tablet 2.5 mg PO DAILY insulin glargine 100 unit/mL Cartridge 10 unit SUBCUT QPM pramipexole [Mirapex] 0.5 mg Tablet 0.5 mg PO DAILY pantoprazole [Protonix] 40 mg Tablet,Delayed Release (Dr/Ec) 40 mg PO DAILY ropinirole 1 mg Tablet 2 mg PO BID tolterodine [Detrol LA] 4 mg Capsule,Extended Release 24hr 4 mg PO DAILY sertraline [Zoloft] 50 mg Tablet 50 mg PO DAILY insulin lispro 100 unit/mL Cartridge 1 sliding scale dose SUBCUT USEASDIRECTD Patient Comments: No coverage if CBG less than 150 spironolactone 25 mg tablet 25 mg PO BID bicalutamide 50 mg tablet 50 mg PO DAILY Rx Instructions: Prostate CA ondansetron 4 mg tablet,disintegrating 8 mg PO Q6H PRN (Reason: Nausea) warfarin enoxaparin 100 mg/mL syringe 100 mg SUBCUT DAILY Patient Comments: [NO ORIGINAL SIG] sennosides [senna] 8.6 mg tablet 17.2 mg PO BEDTIME PRN (Reason: Constipation) hydrocodone-acetaminophen 5-325 mg tablet 2 tab PO Q6H PRN (Reason: pain) Qty: 30 0RF oxycodone [OxyContin] 10 mg tablet,oral only,ext.rel.12 hr 10 mg PO BID Qty: 14 0RF cefdinir 300 mg capsule 300 mg PO Q12H Qty: 14 0RF cefdinir 300 mg capsule 300 mg PO Q12H Qty: 14 0RF hydroxyzine pamoate [Vistaril] 25 mg capsule 25 mg PO PRN PRN (Reason: Sleep) Referrals: Lizbeth Schaefer ARNP [Primary Care Provider] - Stand Alone Forms: Patient Portal/API/Survey
[2024-09-13 10:37] LABS: Add Manual Diff / Slide Review NO; Basophils Absolute Auto 100 /uL (0-100); Basophils Percent Auto 0.8 % (0-2); Eosinophils Absolute Auto 600 /uL (0-450); Eosinophils Percent Auto 5.1 % (2-4); Hematocrit 32.2 % (41-53); Hemoglobin 10.6 g/dL (13.5-17.5); Lymphocytes Absolute Auto 1200 /uL (1100-4500); Mean Corpuscular HGB Conc 32.9 % (30-36); Mean Corpuscular Hemoglobin 28.2 PG (26-34); Mean Corpuscular Volume 85.7 fL (80-100); Monocytes Absolute Auto 700 /uL (0-900); Neutrophils Absolute Auto 8600 /uL (1500-7000); Neutrophils Percent Auto 77.1 % (50-75); Platelet Count 206 X10^3/uL (150-400); Red Blood Cell Count 3.75 X10^6/uL (4.5-5.9); Red Cell Distribution Width 17.8 % (11.6-14.8); White Blood Cell Count 11.1 X10^3/uL (4.5-11.0)
--- NOTE | 2024-09-13 10:43 | DI.CT.S_ITS ---
PROCEDURE: CT HEAD/BRAIN WO CON INDICATIONS: altered mental status TECHNIQUE: Noncontrast 4.5 mm thick angled axial sections acquired from the foramen magnum to the vertex, with coronal and sagittal reformats. For radiation dose reduction, the following was used: automated exposure control, adjustment of mA and/or kV according to patient size. COMPARISON: [facility], CT, CT HEAD/BRAIN WO CON, 02/04/2023, 7:43. FINDINGS: Image quality: Diagnostic. CSF spaces: Basal cisterns are patent. No extra-axial fluid collections. The ventricles are symmetric in size and shape. Brain: No intracranial bleeds or masses. There is cerebral volume loss for age, with resultant ventricular and sulcal prominence. There are periventricular and deep white matter chronic small vessel ischemic changes. There is intracranial internal carotid artery atherosclerosis. Skull and face: Calvarium and visualized facial bones appear intact, without suspicious lesions. Sinuses: Visualized sinuses and mastoids are clear. IMPRESSION: No acute intracranial pathology. Dictated by: Ramone Anne M.D. on 09/13/2024 at 10:57 Approved by: Ramone Anne M.D. on 09/13/2024 at 10:58
[2024-09-13 10:48] LABS: Alanine Aminotransferase 16 IU/L (<50); Albumin 3.8 g/dL (3.5-5.0); Albumin Globulin Ratio 1.2 (1.0-2.8); Alkaline Phosphatase 94 U/L (38-126); Aspartate Aminotransferase 22 IU/L (17-59); BUN Creatinine Ratio 13.2 (6-22); Bilirubin Total 0.5 mg/dL (0.2-1.3); Blood Urea Nitrogen 20 mg/dL (9-20); Calcium 9.1 mg/dL (8.4-10.2); Carbon Dioxide 21 mmol/L (22-32); Chloride 102 mmol/L (98-107); Estimated Glomerular Filt Rate 48 mL/min (>60); Globulin 3.1 g/dL (1.7-4.1); Glucose 226 mg/dL (80-110); HEMOLYSIS < 15 (0-50); Lactate (Lactic Acid) 1.9 mmol/L (0.7-2.1); Lipase 53 U/L (23-300); Magnesium 1.7 mg/dL (1.6-2.3); Sodium 135 mmol/L (137-145); Total Protein 6.9 g/dL (6.3-8.2)
[2024-09-13 10:52] LABS: INR 2.2 (0.9-1.3); Prothrombin Time 24.6 SECONDS (9.4-12.5)
[2024-09-13 11:00] LABS: Troponin I < 0.012 ng/mL (0.01-0.034)
[2024-09-13 11:05] LABS: Procalcitonin 0.227 ng/mL (<0.5)
--- NOTE | 2024-09-13 12:01 | PC.NURSE ---
Assumed cares of pt at this time. Pt lying back in [facility]. Appears in NAD. VSS
[2024-09-13 12:04] LABS: Appearance Urine UA CLEAR; Bilirubin Urine UA NEGATIVE (NEGATIVE); Color Urine UA YELLOW; Glucose Urine UA NEGATIVE (Negative); Ketones Urine UA NEGATIVE (NEGATIVE); Leukocyte Esterase Urine UA NEGATIVE (NEGATIVE); Nitrite Urine UA NEGATIVE (Negative); Occult Blood Urine UA NEGATIVE (Negative); Protein Urine UA NEGATIVE (Negative); Specific Gravity Urine UA 1.015 (1.000-1.035); Urobilinogen Urine UA 0.2 E.U./dL (0.2); pH Urine UA 5.5 (4.5-8.0)
[2024-09-13 12:05] LABS: Appearance Urine UA SL CLOUDY; Bilirubin Urine UA NEGATIVE (NEGATIVE); Color Urine UA YELLOW; Glucose Urine UA 1+ g/dL (Negative); Ketones Urine UA NEGATIVE (NEGATIVE); Leukocyte Esterase Urine UA 1+ (NEGATIVE); Nitrite Urine UA NEGATIVE (Negative); Occult Blood Urine UA NEGATIVE (Negative); Protein Urine UA TRACE (Negative); Urobilinogen Urine UA 0.2 E.U./dL (0.2); pH Urine UA 6.5 (4.5-8.0)
[2024-09-13 12:06] LABS: Urine Volume 10mL (spun)
[2024-09-13 12:08] LABS: Urine Volume 10mL (spun)
[2024-09-13 12:08] LABS: Bacteria Urine None Seen; Culture Indicated Urine Cult Not Indicated; RBC Urine None Seen (0-5/HPF); Squamous Epithelial Cell Urine None Seen (0-5/HPF); WBC Urine None Seen (0-5/HPF)
[2024-09-13 12:09] LABS: Bacteria Urine Moderate (10-30); Culture Indicated Urine Specimen Cultured; RBC Urine None Seen (0-5/HPF); Squamous Epithelial Cell Urine None Seen (0-5/HPF); WBC Urine 1-5/HPF (0-5/HPF)
--- NOTE | 2024-09-13 14:00 | PC.NURSE ---
Pt requesting something for pain. Dr Alonso notified.
[2024-09-13] MEDS: OXYCODONE/ACETAMINOPHEN 5/325 TABLET 1 TAB PO (14:06)
[2024-09-13 14:57] LABS: Influenza A - CEPHEID Flu A NEGATIVE (NEGATIVE); Influenza B - CEPHEID Flu B NEGATIVE (NEGATIVE); Respiratory Syncytial Virus Negative (Negative)
[2024-09-13 15:05] LABS: COVID-19 CEPHEID 4-PLEX PCR Negative (Negative)
--- NOTE | 2024-09-13 15:36 | EKG_ITS ---
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
== END 2024-09-13 16:47 | disposition home or self-care (01) ==
PROVIDERS: Emergency Provider Emergency Medicine; PCP Nurse Practitioner Family
DX: R41.82 Altered mental status, unspecified (principal); Z95.0 Presence of cardiac pacemaker
CPT/HCPCS: 0241U; 36415; 70450; 80053; 81001; 83605; 83690; 83735; 84145; 84484; 85025; 85610; 87040; 87077; 87086; 93005; 99283; 99284

== ENCOUNTER → 2024-09-14 15:10 | Outpatient (ROUT) | payer MEDICARE, MEDICAID, SELFPAY ==
[2023-08-13 01:09] VITALS: BMI 33.5
[2024-09-14 15:31] LABS: INR 2.2 (0.9-1.3); Prothrombin Time 24.5 SECONDS (9.4-12.5)
== END ==
PROVIDERS: PCP Nurse Practitioner Family; Visit Provider Registered Nurse
DX: I48.91 Unspecified atrial fibrillation (principal)
CPT/HCPCS: 85610

== ENCOUNTER → 2024-09-20 16:29 | Outpatient (ROUT) | payer MEDICARE, MEDICAID, SELFPAY ==
[2023-08-13 01:09] VITALS: BMI 33.5
[2024-09-20 16:40] LABS: INR 2.7 (0.9-1.3); Prothrombin Time 29.8 SECONDS (9.4-12.5)
== END ==
PROVIDERS: PCP Nurse Practitioner Family; Visit Provider Registered Nurse
DX: I48.91 Unspecified atrial fibrillation (principal)
CPT/HCPCS: 85610

== ENCOUNTER 2024-09-24 15:18 | Emergency (ER) | payer MEDICARE, MEDICAID, SELFPAY ==
[2023-08-13 01:09] VITALS: BMI 33.5
[2024-09-24 15:23] VITALS: BP 136/63; PULSE 63; RESP 16; TEMP 36.6; O2SAT 96; BMI 36.9
--- NOTE | 2024-09-24 15:28 | DI.RAD.S_ITS ---
PROCEDURE: XR KNEE RT 3V INDICATIONS: R knee pain/swelling TECHNIQUE: 3 views of the knee were acquired. COMPARISON: [facility], CR, XR KNEE LT 1TO2V, 06/02/2021, 11:52. FINDINGS: Bones: No fractures or dislocations. No suspicious bony lesions. Mild medial compartment joint space narrowing. Atherosclerotic vascular calcification noted. Soft tissues: Moderate joint effusion IMPRESSION: Moderate joint effusion and arthritic changes. Calcific atherosclerosis. Approved by: Ronaldo Robertson M.D. on 09/24/2024 at 15:26
--- NOTE | 2024-09-24 15:41 | ED.LOWEXIN ---
HPI - Extremity Injury (Lower) General Chief Complaint: Extremity Injury, Lower Stated Complaint: R knee pain Time Seen by Provider: 09/24/24 15:40 History of Present Illness HPI Narrative: 74-year-old male with history of gout, aortic valve replacement, warfarin chronic anticoagulation, congestive heart failure, cardiac pacemaker, complains of 3 days duration nontraumatic right knee pain with swelling. No fevers or chills. Hurts with any movement of his knee today. He does not wear call previous gouty flares involving his knees, though he has had gouty flares of his great toes in the past, no current ankle/foot/toe symptoms. Denies fevers, chills. Denies injury, new activities. Related Data Home Medications Medication Instructions Recorded Confirmed acetaminophen 325 mg tablet 650 mg PO Q4H PRN pain 06/13/22 11/26/23 atorvastatin 40 mg tablet 40 mg PO BEDTIME 06/13/22 11/26/23 calcium carbonate (Antacid 500 mg DAILY 06/13/22 08/12/23 (calcium carbonate)) ferrous sulfate 325 mg (65 mg 325 mg PO DAILY 06/13/22 08/12/23 iron) tablet furosemide 40 mg tablet 40 mg PO DAILY 06/13/22 11/26/23 gabapentin 300 mg tablet 600 mg PO BID 06/13/22 11/26/23 insulin glargine 100 unit/mL 10 unit SUBCUT QPM 06/13/22 11/26/23 subcutaneous cartridge insulin lispro 100 unit/mL 1 sliding scale dose SUBCUT 06/13/22 11/26/23 subcutaneous cartridge USEASDIRECTD lisinopril 2.5 mg tablet 2.5 mg PO DAILY 06/13/22 11/26/23 metoprolol succinate 25 mg 12.5 mg PO DAILY 06/13/22 11/26/23 tablet,extended release 24 hr pantoprazole 40 mg tablet,delayed 40 mg PO DAILY 06/13/22 11/26/23 release (Protonix) pramipexole 0.5 mg tablet (Mirapex) 0.5 mg PO DAILY 06/13/22 08/12/23 ropinirole 1 mg tablet 2 mg PO BID 06/13/22 11/26/23 sertraline 50 mg tablet (Zoloft) 50 mg PO DAILY 06/13/22 08/12/23 tolterodine 4 mg capsule,extended 4 mg PO DAILY 06/13/22 11/26/23 release 24 hr (Detrol LA) hydroxyzine pamoate 25 mg capsule 25 mg PO PRN PRN Sleep 08/03/22 11/26/23 (Vistaril) bicalutamide 50 mg tablet 50 mg PO DAILY 12/14/22 08/12/23 ondansetron 4 mg disintegrating 8 mg PO Q6H PRN Nausea 12/14/22 08/12/23 tablet spironolactone 25 mg tablet 25 mg PO BID 12/14/22 11/26/23 sennosides 8.6 mg tablet (senna) 17.2 mg PO BEDTIME PRN Constipation 08/12/23 08/12/23 warfarin 11/22/23 enoxaparin 100 mg/mL subcutaneous 100 mg SUBCUT DAILY 11/26/23 11/26/23 syringe Previous Rx's Medication Instructions Recorded hydrocodone 5 mg-acetaminophen 325 2 tab PO Q6H PRN pain #30 tabs 08/16/23 mg tablet oxycodone 10 mg tablet,crush 10 mg PO BID #14 tabs 08/16/23 resistant,extended release 12 hr (OxyContin) cefdinir 300 mg capsule 300 mg PO Q12H #14 caps 09/04/24 cefdinir 300 mg capsule 300 mg PO Q12H #14 caps 09/04/24 cephalexin 500 mg capsule 500 mg PO QID 7 days #28 caps 09/24/24 hydrocodone 5 mg-acetaminophen 325 1 tab PO Q6H PRN pain #14 tabs 09/24/24 mg tablet Allergies Allergy/AdvReac Type Severity Reaction Status Date / Time crab Allergy Severe Deathly Verified 11/26/23 08:50 sick aspartame Allergy Unknown Verified 11/26/23 08:50 carbidopa Allergy Hallucinations, Verified 11/26/23 08:50 anxiety morphine AdvReac Nausea/vomi Verified 11/26/23 08:50 ting Patient History Medical History DVT (deep venous thrombosis) History of left heart catheterization (12/2019) Atrial fibrillation Paroxysmal A-fib RBBB LAFB (left anterior fascicular block) First degree AV block History of transcatheter aortic valve replacement (TAVR) (08/01/18) Sleep apnea CAD (coronary artery disease) Stress incontinence Enlarged lymph node Chronic anticoagulation Androgen deprivation therapy Stress incontinence, male History of radiation therapy Hydronephrosis, right Prostate cancer Osteoarthritis Hypertension Gout Depression History of prostate cancer Arthritis GERD (gastroesophageal reflux disease) Diabetes Congestive heart failure Pacemaker Surgical History AICD (automatic cardioverter/defibrillator) present (12/30/20) Hx of heart artery stent History of back surgery H/O aortic valve replacement Family History Mother Coronary artery disease involving bypass graft of transplanted heart Cancer Hypertension Social History marital status: number of children: 3 household members: caregiver and none Previous occupational history: retired alcohol intake: former caffeine: Yes tobacco type: cigarettes alcohol intake frequency: 0-2 drinks per day Exam Narrative Exam Narrative: GENERAL: Well-developed patient, in mild distress. HEAD: Atraumatic. Normocephalic. EYES: Pupils equal round and reactive. Extraocular motions intact. No scleral icterus. No injection or drainage. ENT: Nose without bleeding, purulent drainage. Throat without erythema, tonsillar hypertrophy or exudate. Airway patent. NECK: Trachea midline. Non tender CARDIOVASCULAR: Regular rate and rhythm without murmurs, gallops, or rubs. RESPIRATORY: Clear to auscultation. Breath sounds equal bilaterally. No wheezes, rales, or rhonchi. GASTROINTESTINAL: Abdomen soft, non-tender, nondistended. EXTREMITIES: Right knee without obvious scars, some tenderness suprapatellar with ballotable effusion, not particularly along medial or lateral joint line. Anterior right knee with sllight warmth to touch. Has pain with attempted flexion or full extension, holds knee in position of comfort with 20? flexion position over a pillow. No swelling or warmth to right ankle/toes. No redness or streaking to the LLE skin. No palpable cords, no posterior left knee tenderness. LLE toes warm, seem well perfused. BACK: Nontender without deformity or crepitance. No flank tenderness. NEURO: AOx3. Motor functions grossly nonfocal SKIN: No rash or erythema of visible areas Initial Vital Signs Initial Vital Signs: Vital Signs Temperature 97.8 F 09/24/24 15:23 Pulse Rate 63 09/24/24 15:23 Respiratory Rate 16 09/24/24 15:23 Blood Pressure 136/63 09/24/24 15:23 Pulse Oximetry 96 09/24/24 15:23 Oxygen Delivery Method Room Air 09/24/24 15:23 Procedures Joint Aspiration Joint Asp./Inject. 1: Time of procedure: 16:59 Time Out Performed: Yes Side of body: right Joint Aspirated: knee Ultrasound Guidance: No Skin Prep: Chlorhexidine Local Anesthetic: lidocaine 1% and with epi Amount of anesthesia used (mL): 6 Needle Size Used: 20G (Spinal needle 20 gauge used for aspiration, withdrawal of 55 cc yellow fluid.) Total fluid obtained (mL): 55 Patient Tolerated Procedure: Well Complications: none Additional Comments: Local sterile dressing and Basim wrap applied postprocedure. Syringe handed to awaiting tailings dam laborer at bedside with orders for synovial fluid studies. Course Orders Ordered: ED Orders 09/24/24 15:28 XR knee RT 3V Stat CBC Auto Diff [Complete Blood Count AUTO DIFF] Stat CMP [Comprehensive Metabolic Panel] Stat CRP [C-Reactive Protein Quant] Stat ESR [Erythrocyte Sedimentation Rate] Stat Prothrombin Time INR Stat 09/24/24 16:43 Body Fluid Culture Stat Cell Count w Diff Body Fluid Stat Crystals Body Fluid - IN-HOUSE Stat Discontinued Medications Hydrocodone Bitart/Acetaminophen (Hydrocodone/Acet 5/325 Tablet) 1 tab PO NOW ONE Stop: 09/24/24 18:20 Last Admin: 09/24/24 18:25 Dose: 1 tab Documented By: KYLE Hydrocodone Bitart/Acetaminophen (Hydrocodone/Acet 5/325 Prepack) 1 bottle MISC DIRECTED ONE Stop: 09/24/24 19:28 Last Admin: 09/24/24 19:40 Dose: 1 bottle Documented By: KYLE Ceftriaxone Sodium (Ceftriaxone 2,000 Mg Vial) 1,000 mg IM NOW ONE Stop: 09/24/24 19:18 Last Admin: 09/24/24 19:34 Dose: Not Given Documented By: KYLE Ceftriaxone Sodium 1,000 mg/ (Sodium Chloride) 100 mls @ 200 mls/hr IV NOW ONE Stop: 09/24/24 19:23 Last Infusion: 09/24/24 20:30 Dose: Infused Documented By: Admin: 09/24/24 19:40 Dose: 200 mls/hr Documented By: KYLE Vital Signs Vital signs: Vital Signs - 8 hr 09/24/24 15:23 09/24/24 19:53 Temperature 97.8 F 98.4 F Pulse Rate 63 73 Respiratory Rate 16 16 Blood Pressure 136/63 119/53 L Pulse Oximetry 96 98 Oxygen Delivery Method Room Air Room Air MDM - Extremity Injury (Lower) Lab Data Attestation: I reviewed the patient's lab results. Lab results narrative: White blood cell count 9200, hemoglobin 9.5, platelets 158859. Sodium 133, potassium 4.4, serum CO2 21, BUN 23 with creatinine 1.6, glucose 129. Liver functions unremarkable. C-reactive protein 11.8 elevated. ESR 126 elevated. 09/24/24 15:28 09/24/24 15:28 Labs: Lab Results 09/24/24 09/24/24 Range/Units 15:28 16:43 WBC 9.2 (4.5-11.0) X10^3/uL RBC 3.35 L (4.5-5.9) X10^6/uL Hgb 9.5 L (13.5-17.5) g/dL Hct 28.5 L (41-53) % MCV 85.0 (80-100) fL MCH 28.3 (26-34) PG MCHC 33.3 (30-36) % RDW 17.6 H (11.6-14.8) % Plt Count 235 (150-400) X10^3/uL Neut % (Auto) 77.4 H (50-75) % Lymph % (Auto) 11.8 L (25-40) % [place] % (Auto) 7.3 (3-14) % Eos % (Auto) 2.9 (2-4) % Baso % (Auto) 0.6 (0-2) % Neut # (Auto) 7200 H (9327-6749) /uL Lymph # (Auto) 1100 (0940-1066) /uL [place] # (Auto) 700 (0-900) /uL Eos # (Auto) 300 (0-450) /uL Baso # (Auto) 100 (0-100) /uL ESR 126 H (0-15) MM/HR PT 29.1 H (9.4-12.5) SECONDS INR 2.6 H (0.9-1.3) Sodium 133 L (137-145) mmol/L Potassium 4.4 (3.4-5.1) mmol/L Chloride 100 (98-107) mmol/L Carbon Dioxide 21 L (22-32) mmol/L BUN 23 H (9-20) mg/dL Creatinine 1.61 H (0.66-1.25) mg/dL Estimated GFR 44 L (>60) mL/min BUN/Creatinine Ratio 14.3 (6-22) Glucose 129 H (80-110) mg/dL Calcium 8.9 (8.4-10.2) mg/dL Total Bilirubin 0.6 (0.2-1.3) mg/dL AST 21 (17-59) IU/L ALT 14 (<50) IU/L Alkaline Phosphatase 85 (38-126) U/L C-Reactive Protein 11.8 H (<1.0) mg/dL Total Protein 7.2 (6.3-8.2) g/dL Albumin 3.9 (3.5-5.0) g/dL Globulin 3.3 (1.7-4.1) g/dL Albumin/Globulin Ratio 1.2 (1.0-2.8) Fluid Color Yellow Fluid Appearance Turbid Fluid RBC 1628 /uL Fld Tot Nucleated Cell 35717 /uL Fluid Neutrophils % 86 % Fluid Lymphocytes % 5 % Fluid Meso/Macro/Lenoir % 9 % Fluid Crystals Monosodium urate msu H (NONE) Body Fluid Clot No clots present MDM Narrative Medical decision making narrative: 74-year-old male with nontraumatic right knee pain with effusion, no fever on triage, history of warfarin chronic anticoagulation without recent trauma recalled. Also has history of gout, prior toe swelling problems, no foot ankle knee or hip problems in the past. Effusion on exam, consider tap, patient considering. We will send screening labs CBC, CMP, PT/INR, ESR, CRP for now. Patient would like pain medication, IV Dilaudid ordered. He has not yet comfortable with the idea of tap, agreeable to x-ray imaging which had been ordered from triage. Labs pending. X-ray right knee with arthritic change, calcification of vessel. ED wet read, await Radiology report. Patient consented for right diagnostic/therapeutic arthrocentesis, 20 gauge spinal needle introduced after local anesthesia, 55-mL yellow fluid withdrawn, sent for studies, syringe handed to adjacent awaiting tailings dam laborer. Synovial fluid sent for cell count with differential, Gram stain and culture, also for crystal analysis. Right knee synovial fluid studies: White blood cell count 96963, 86% neutrophils. Urate crystals are present. Synovial fluid gram stain pending, synovial fluid culture requested. 1844, still awaiting synovial Gram stain results. Case also discussed with pharmacy on-call, regarding possible candidacy for colchicine, no medication interactions identified, however creatinine clearance 39 noted, would discourage colchicine use. We will avoid NSAIDs due to warfarin. Advised to continue his oxycodone for chronic pain, which has been prescribed in the past. Hold steroids in case of infection. Synovial gram stain shows many WBCs, also mentioned scant Gram-positive cocci. Will consult Orthopedic surgery regarding scant GPC on gram stain synovial fluid. 1899, case discussed with Orthopedic surgery Dr. Odom, scant Gram-positive cocci noted, possible contaminant, however she does advise covering with antibiotics for now pending synovial fluid culture results, IV ceftriaxone for now, Keflex for discharge. No operative intervention at this time. Follow up in their clinic advised next couple of days to reassess for symptoms and for follow up of the culture results. Return precautions discussed. Discharged home. IV ceftriaxone. Rx Keflex. Oral hydrocodone/APAP dose given, homepack dispensed, Rx sent. DC back to home [facility] facility. FU orthopedic surgery in 2 days advised. Return precautions also discussed. Discharge Plan Departure Patient Disposition: Home Clinical Impression: Pain in right knee, Effusion of right knee, Gouty arthritis, Chronic anticoagulation Activity Restrictions/Additional Instructions: Nontraumatic right knee pain for the last couple of days. No fever on triage. History of gout with toe inflammation in the past, but no prior knee problems. History of chronic blood thinner medication warfarin, we will avoid anti-inflammatory medications for now. Knee tap was performed, with removal of 55-mL volume of yellow fluid. Studies showed presence of uric acid (gout) joint fluid crystals. White blood cell count was not super elevated, not obviously suspicious for septic/infected joint. Likely inflammatory crystal arthropathy, inflammation due to gout crystals. There was ?scant? Gram-positive coccus bacteria present on the Gram stain of the fluid tonight. It could be contamination but we will cover with antibiotics in case of infection. Your knee tap results were not abnormal enough to warrant operating room washout surgical therapy tonight. Case was discussed with on-call Orthopedic surgery Dr. Christian, who suggested starting antibiotics, and close follow up in her clinic in the next couple of days. If culture is positive or symptoms worsen then eventual washout surgical procedure of the knee might be required. Return earlier to this/nearest emergency department for any change worsening symptoms or any concerns prior. We will avoid steroids in case there might be a joint infection present. We will avoid colchicine given your age and diminished renal function. We will advise avoiding anti-inflammatory medication such as ibuprofen and naproxen given your use of warfarin chronic anticoagulation, so that we would not cause any source of bleeding that we could not control if it started to bleed. Take your chronic pain medications as directed. Follow up with Orthopedic surgery as above in the next couple of days. Call the office tomorrow Wednesday during regular hours for close follow up appointment on Wednesday. Return earlier to this/nearest emergency department for any change worsening symptoms or any concerns prior. Prescriptions: New cephalexin 500 mg capsule 500 mg PO QID 7 Days Qty: 28 0RF hydrocodone-acetaminophen 5-325 mg tablet 1 tab PO Q6H PRN (Reason: pain) Qty: 14 0RF No Action acetaminophen 325 mg Tablet 650 mg PO Q4H PRN (Reason: pain) atorvastatin 40 mg Tablet 40 mg PO BEDTIME Antacid (calcium carbonate) 215 mg calcium (500 mg) Tablet,Chewable 500 mg DAILY Rx Instructions: AM furosemide 40 mg Tablet 40 mg PO DAILY gabapentin 300 mg Tablet 600 mg PO BID ferrous sulfate 325 mg (65 mg iron) Tablet 325 mg PO DAILY metoprolol succinate 25 mg Tablet Extended Release 24 Hr 12.5 mg PO DAILY Rx Instructions: Hold for SBP < 100, HR < 60 lisinopril 2.5 mg Tablet 2.5 mg PO DAILY insulin glargine 100 unit/mL Cartridge 10 unit SUBCUT QPM pramipexole [Mirapex] 0.5 mg Tablet 0.5 mg PO DAILY pantoprazole [Protonix] 40 mg Tablet,Delayed Release (Dr/Ec) 40 mg PO DAILY ropinirole 1 mg Tablet 2 mg PO BID tolterodine [Detrol LA] 4 mg Capsule,Extended Release 24hr 4 mg PO DAILY sertraline [Zoloft] 50 mg Tablet 50 mg PO DAILY insulin lispro 100 unit/mL Cartridge 1 sliding scale dose SUBCUT USEASDIRECTD Patient Comments: No coverage if CBG less than 150 spironolactone 25 mg tablet 25 mg PO BID bicalutamide 50 mg tablet 50 mg PO DAILY Rx Instructions: Prostate CA ondansetron 4 mg tablet,disintegrating 8 mg PO Q6H PRN (Reason: Nausea) warfarin enoxaparin 100 mg/mL syringe 100 mg SUBCUT DAILY Patient Comments: [NO ORIGINAL SIG] sennosides [senna] 8.6 mg tablet 17.2 mg PO BEDTIME PRN (Reason: Constipation) hydrocodone-acetaminophen 5-325 mg tablet 2 tab PO Q6H PRN (Reason: pain) Qty: 30 0RF oxycodone [OxyContin] 10 mg tablet,oral only,ext.rel.12 hr 10 mg PO BID Qty: 14 0RF cefdinir 300 mg capsule 300 mg PO Q12H Qty: 14 0RF cefdinir 300 mg capsule 300 mg PO Q12H Qty: 14 0RF hydroxyzine pamoate [Vistaril] 25 mg capsule 25 mg PO PRN PRN (Reason: Sleep) Referrals: Roselyn Christian MD [Physician] - Lizbeth Schaefer ARNP [Primary Care Provider] - Stand Alone Forms: Patient Portal/API/Survey
[2024-09-24 16:02] LABS: Add Manual Diff / Slide Review NO; Basophils Absolute Auto 100 /uL (0-100); Basophils Percent Auto 0.6 % (0-2); Eosinophils Absolute Auto 300 /uL (0-450); Eosinophils Percent Auto 2.9 % (2-4); Hematocrit 28.5 % (41-53); Hemoglobin 9.5 g/dL (13.5-17.5); Lymphocytes Absolute Auto 1100 /uL (1100-4500); Lymphocytes Percent Auto 11.8 % (25-40); Mean Corpuscular HGB Conc 33.3 % (30-36); Mean Corpuscular Hemoglobin 28.3 PG (26-34); Monocytes Absolute Auto 700 /uL (0-900); Monocytes Percent Auto 7.3 % (3-14); Neutrophils Absolute Auto 7200 /uL (1500-7000); Neutrophils Percent Auto 77.4 % (50-75); Platelet Count 235 X10^3/uL (150-400); Red Blood Cell Count 3.35 X10^6/uL (4.5-5.9); Red Cell Distribution Width 17.6 % (11.6-14.8); White Blood Cell Count 9.2 X10^3/uL (4.5-11.0)
[2024-09-24 16:10] LABS: Alanine Aminotransferase 14 IU/L (<50); Albumin 3.9 g/dL (3.5-5.0); Albumin Globulin Ratio 1.2 (1.0-2.8); Alkaline Phosphatase 85 U/L (38-126); Aspartate Aminotransferase 21 IU/L (17-59); BUN Creatinine Ratio 14.3 (6-22); Bilirubin Total 0.6 mg/dL (0.2-1.3); Blood Urea Nitrogen 23 mg/dL (9-20); Calcium 8.9 mg/dL (8.4-10.2); Carbon Dioxide 21 mmol/L (22-32); Chloride 100 mmol/L (98-107); Estimated Glomerular Filt Rate 44 mL/min (>60); Globulin 3.3 g/dL (1.7-4.1); Glucose 129 mg/dL (80-110); HEMOLYSIS < 15 (0-50); Potassium 4.4 mmol/L (3.4-5.1); Sodium 133 mmol/L (137-145); Total Protein 7.2 g/dL (6.3-8.2)
[2024-09-24 16:24] LABS: INR 2.6 (0.9-1.3); Prothrombin Time 29.1 SECONDS (9.4-12.5)
[2024-09-24 16:28] LABS: C-Reactive Protein Quant 11.8 mg/dL (<1.0)
[2024-09-24 16:30] LABS: Erythrocyte Sedimentation Rate 126 MM/HR (0-15)
--- NOTE | 2024-09-24 16:59 | PC.NURSE ---
Pt arrives with EMS. R knee appears very swollen, skin is tight. cap refill is normal. no pitting edema. h/o gout. XR obtained. consent witnessed at bedside for R knee aspiration. Lab at bedside and collected R knee aspirate/synovial fluid. yellow in color. Did not appear sanguinous. No bleeding from area. covered with clean gauze and bandaid. Pt tolerated well.
[2024-09-24 17:11] LABS: Body Fluid Red Blood Cells 1628 /uL; Body Fluid Tot Nucleated Cells 14237 /uL
[2024-09-24 17:15] LABS: Body Fluid Color YELLOW
[2024-09-24 17:16] LABS: Body Fluid Appearance TURBID; Body Fluid Clotted? NO CLOTS PRESENT
[2024-09-24 17:22] LABS: Crystals Body Fluid - IN-HOUSE Monosodium Urate MSU
[2024-09-24 17:26] LABS: Lymphocytes Body Fluid 5 %; MESO/MACRO/MONO Body Fluid 9 %; Neutrophils Body Fluid 86 %
[2024-09-24] MEDS: HYDROCODONE/ACET 5/325 TABLET 1 TAB PO (18:25)
[2024-09-24] MEDS: HYDROCODONE/ACET 5/325 PREPACK 1 BOTTLE MISC (19:40)
[2024-09-24] MEDS: cefTRIAXone 1,000 MG in SODIUM CHLORIDE 0.9% 100 ML 200 MG IV (19:40)
[2024-09-24 19:53] VITALS: BP 119/53; PULSE 73; RESP 16; TEMP 36.9; O2SAT 98
--- NOTE | 2024-09-24 20:50 | PC.NURSE ---
Right knee pain; hx of gout. pt unsure if he takes gout medications stating he takes a lot of medications. Pt states he usually walks with a walker but states for the last 2 weeks he has used a wheelchair
== END 2024-09-24 21:34 | disposition home or self-care (01) ==
PROVIDERS: Emergency Provider Emergency Medicine; PCP Nurse Practitioner Family
DX: M25.461 Effusion, right knee (principal); M10.9 Gout, unspecified; Z79.01 Long term (current) use of anticoagulants; Z95.2 Presence of prosthetic heart valve
CPT/HCPCS: 20610; 73562; 80053; 85025; 85610; 85651; 86140; 87070; 87075; 87205; 89051; 89060; 96365; 99284; J0696

== ENCOUNTER → 2024-09-27 06:09 | Outpatient (ROUT) | payer MEDICARE, MEDICAID, SELFPAY ==
[2023-08-13 01:09] VITALS: BMI 33.5
[2024-09-27 08:25] LABS: INR 3.8 (0.9-1.3); Prothrombin Time 41.9 SECONDS (9.4-12.5)
== END ==
PROVIDERS: PCP Nurse Practitioner Family; Visit Provider Registered Nurse
DX: I48.91 Unspecified atrial fibrillation (principal)
CPT/HCPCS: 36415; 85610

== ENCOUNTER → 2024-09-29 14:48 | Outpatient (CLI) | payer MEDICARE, MEDICAID, SELFPAY ==
[2023-08-13 01:09] VITALS: BMI 33.5
[2024-09-29 15:44] LABS: INR 2.1 (0.9-1.3); Prothrombin Time 23.5 SECONDS (9.4-12.5)
== END ==
PROVIDERS: PCP Nurse Practitioner Family; Referring Provider Nurse Practitioner Family; Visit Provider Registered Nurse
DX: I48.0 Paroxysmal atrial fibrillation (principal)
CPT/HCPCS: 36415; 85610

== ENCOUNTER → 2024-10-11 06:12 | Outpatient (ROUT) | payer MEDICARE, MEDICAID, SELFPAY ==
[2023-08-13 01:09] VITALS: BMI 33.5
[2024-10-11 08:25] LABS: BUN Creatinine Ratio 22.6 (6-22); Blood Urea Nitrogen 37 mg/dL (9-20); Calcium 8.5 mg/dL (8.4-10.2); Carbon Dioxide 25 mmol/L (22-32); Chloride 99 mmol/L (98-107); Estimated Glomerular Filt Rate 43 mL/min (>60); Glucose 130 mg/dL (70-99); HEMOLYSIS < 15 (0-50); Potassium 4.3 mmol/L (3.4-5.1); Sodium 132 mmol/L (137-145)
== END ==
LOC: LAB 06:12
PROVIDERS: Registered Nurse; PCP Nurse Practitioner Family
DX: N18.9 Chronic kidney disease, unspecified (principal)
CPT/HCPCS: 36415; 80048; 83735

== ENCOUNTER 2024-10-11 10:59 | Inpatient (IN) | payer MEDICARE, MEDICAID, SELFPAY ==
[2023-08-13 01:09] VITALS: BMI 33.5
[2024-10-09 09:39] VITALS: BMI 33.3
[2024-10-11] VITALS (12 sets, daily range): BP systolic 101–129; BP diastolic 38–76; PULSE 65–90; RESP 14–21; TEMP 35.7–36.6; O2SAT 92–98; BMI 33.3; BMI 35.8
--- NOTE | 2024-10-11 10:51 | SUR.PREOP ---
Med list update on phone with Mirta Departing at [facility] [phone]
[2024-10-11] MEDS: ACETAMINOPHEN 325 MG TABLET 975 MG PO (11:29)
--- NOTE | 2024-10-11 11:44 | PM.PREOP ---
Pre-operative Note Interval Note History & Physical reviewed/Exam performed by Physician: Yes Changes to H&P: No
[2024-10-11] MEDS: LACTATED RINGERS 1,000 ML 42 ML IV (11:50)
--- NOTE | 2024-10-11 11:52 | SUR.OPER ---
Supine on padded OR bed, head on pillow, arms secured on padded arm boards at <90 degrees abduction, legs uncrossed, safety belt at thigh, tape over blanket over left lower leg. RIght leg against stress post under control of surgeon.
[2024-10-11] MEDS: CEFAZOLIN 2 GM/100 ML PREMIX 100 ML IV ×2 (12:13→20:26)
--- NOTE | 2024-10-11 13:11 | P.OP_ITS ---
Operative Date/Time/Diagnoses Date of procedure: 10/11/24 Time of procedure: 13:11 Pre-op diagnosis: Pain in right knee, pyogenic arthritis right knee, septic arthritis, gouty arthritis Post-op diagnosis: same Procedure & Clinicians Procedure: Irrigation knee and debridement arthroscopic, CPT code 35220, right Same procedure as scheduled: Yes Indications: The patient is a 74-year-old male with multiple medical comorbidities including implanted defibrillator, diabetes, aortic valve replacement, chronic gout, nephrostomy tube and history of multiple urinary tract infections presented with 1 month of right knee pain and effusion. Had an aspiration in the emergency room that cultures did not grow anything but there were Gram-positive cocci. The patient was on outpatient oral antibiotics for a few weeks then presented to me with persistent effusion. States since the pain started he has been unable to walk with his walker which he did so previously. He lives at a facility. He has had multiple urinary tract infections and had a recent hospitalization were 1 blood culture demonstrated organisms. Concern was for septic arthritis versus inflammatory arthritis or gouty flare. He was indicated for arthroscopic irrigation of the right knee and cultures. He was unable to take anti- inflammatories due to chronic anticoagulation. Indicated for surgery for arthroscopic debridement and hospital admission possible need for intravenous antibiotics depending on debridement cultures and final diagnosis of bacterial septic arthritis versus inflammatory arthropathy. The risks and benefits of the procedure have been discussed with the patient and given the opportunity to ask questions. The risks of surgery include but are not limited to infection, malunion, nonunion, persistence of pain, damage to nerves and blood vessels, posttraumatic arthritis, DVT, PE, cardiopulmonary complications and . The patient expressed a thorough understanding of the risks and benefits of surgery and has elected to proceed. Consent was signed. Surgeon: Roselyn Christian Click Yes if Unassisted: Yes Anesthesia Type: General and Local Operative Notes Findings: Diffuse grade 4 chondromalacia all compartments. Degenerative chair severe arthritis. White particulate matter consistent with chronic gout. No gross purulence. 8 cc of bloody synovial fluid aspirate was obtained prior to the ar throscopic surgery--synovial fluid and synovium were sent for culture Gram stain cell count crystals and PCR Closure Type: primary Specimen(s): other (Synovial fluid and synovium sent for culture Gram stain crystals cell count PCR) Estimated Blood Loss (mL): 30 Tourniquet time (min): 19 Procedure in detail: Patient was seen in the preoperative area the site of surgery was marked informed consent confirmed this was the right knee. The patient was brought back to the operating room by the anesthesia team positioned supine on operative table. Bony prominences were well padded. An SCD was placed on the contralateral lower extremity. A thigh tourniquet was placed on the right lower extremity. The right lower extremity was prepped and draped in standard sterile fashion formal time-out procedure was performed confirming the patient's side and site of surgery administration of appropriate preoperative antibiotic. All were in agreement. Attention was turned to the right lower extremity An 18 gauge needle was used to aspirate the knee through the superior lateral suprapatellar portal. 8 cc of bloody fluid was obtained. Then the Esmarch was used for exsanguination tourniquet raised on the thigh to 250 mm of mercury. First the standard anterolateral portal was established. The arthroscope was inserted into the notch and then advanced into the suprapatellar pouch. There was grade 4 patellofemoral arthritis noted as well as white particulate matter and bloody inflamed synovium. The anteromedial portal was then established under the standard direct technique and the shaver introduced. Shaver was used to debride the anterior medial and lateral compartment again there was diffuse grade 4 cartilage loss throughout the anterior medial and lateral compartments and degenerative meniscal tearing. There was virtually no cartilage remaining and diffuse particular white deposits likely consistent with a chronic gouty scenario. There was no gross purulence. Shaver was used to debride the synovium synovial shavings and chondroplasty shavings were collected and sent. At this 0.6 L of normal saline was run through the knee with an outflow portal established superior laterally. Once this was completed the tourniquet was released and hemostasis was achieved. The wounds were closed with 3-0 nylon suture and a mixture of 20 cc of 0.25% Marcaine with epinephrine and Toradol were injected into the knee for postoperative pain control. A dressing was placed with Xeroform gauze Webril and an Basim wrap. Patient was awoken from anesthesia and taken to the recovery unit in good condition there were no immediate complications of the procedure. Counts were correct. Complications: none Post-operative Condition: stable Disposition: PACU Plan for aftercare: The patient will be admitted to the floor for scheduled antibiotics while we await cultures. He will have a internal medicine consultation for his multiple medical problems. If there is growth from the cultures then he will need to establish IV antibiotics with Infectious Disease. If there was no growth then would treat as gout and consider outpatient intra-articular corticosteroid injections since the patient can not take oral anti-inflammatories due to his chronic anticoagulation.
[2024-10-11] MEDS: HYDROMORPHONE 1 MG INJ 0.5 MG IV ×2 (13:29→13:39)
[2024-10-11] MEDS: OXYCODONE IR 5 MG TABLET PO (13:44)
[2024-10-11] MEDS: hydrOXYzine 50 MG/ML INJ 25 MG IM (13:45)
[2024-10-11] MEDS: BUPIVACAINE 0.25% W/ EPI 30 ML VIAL 60 ML INJ (13:47)
[2024-10-11 14:04] LABS: Crystals Body Fluid - IN-HOUSE NONE Present
[2024-10-11 14:07] LABS: Body Fluid Red Blood Cells 229576 /uL; Body Fluid Tot Nucleated Cells 1178 /uL
[2024-10-11 14:34] LABS: Body Fluid Color RED
[2024-10-11 14:35] LABS: Body Fluid Appearance CLOUDY; Body Fluid Clotted? NO CLOTS PRESENT
[2024-10-11 14:51] LABS: Lymphocytes Body Fluid 3 %; MESO/MACRO/MONO Body Fluid 11 %; Neutrophils Body Fluid 86 %
--- NOTE | 2024-10-11 14:54 | PM.CN ---
History of Present Illness Consult details Date Patient Seen: 10/11/24 Time Patient Seen: 15:46 Chief complaint: Right Arthroscopy Knee Reason for consult: Medical management. Requesting provider: Roselyn Christian Narrative: The patient was a 74-year-old male with history of gout, AVR, chronic warfarin, CHF, pacemaker, and a month long history of right knee pain and swelling. The patient had an aspiration previously in the walk-in clinic which revealed Gram-positive cocci but ultimately had no growth. There was also 1 blood culture in the last several weeks which had 1 out of put to cultures positive for GPC. The patient was seen by Dr. Odom with persistent swelling and pain of the knee and taken to the OR for washout today. Cultures were obtained. The patient also has a history of gout with tophaceous changes to the right greater than left foot. He denies recent issues other than knee swelling and pain. No fevers, or chills. The operation was unremarkable and went without any complications. Patient lives in [facility] which is in [place]. Knee fluid: 10/11/24 12:45Fluid Color RedFluid Appearance CloudyFluid RBC 454132Kuo Tot Nucleated Cell 1178Fluid Neutrophils % 86Fluid Lymphocytes % 3Fluid Meso/Macro/[place] % 11Fluid Crystals None presentBody Fluid Clot No clots present Meds Home Medications and Allergies Home Medications Medication Instructions Recorded Confirmed Type acetaminophen 325 mg tablet 650 mg PO Q4H PRN pain 06/13/22 10/10/24 History atorvastatin 40 mg tablet 60 mg PO BEDTIME 06/13/22 10/11/24 History calcium carbonate (Antacid 500 mg DAILY 06/13/22 10/10/24 History (calcium carbonate)) ferrous sulfate 325 mg (65 mg 325 mg PO DAILY 06/13/22 10/11/24 History iron) tablet furosemide 40 mg tablet 40 mg PO BID 06/13/22 10/11/24 History insulin lispro 100 unit/mL 2 sliding scale dose SUBCUT 06/13/22 10/11/24 History subcutaneous cartridge USEASDIRECTD lisinopril 2.5 mg tablet 2.5 mg PO DAILY 06/13/22 10/11/24 History metoprolol succinate 25 mg 12.5 mg PO DAILY 06/13/22 10/11/24 History tablet,extended release 24 hr pantoprazole 40 mg tablet,delayed 40 mg PO DAILY 06/13/22 10/11/24 History release (Protonix) ropinirole 1 mg tablet 2 mg PO BID 06/13/22 10/11/24 History sertraline 50 mg tablet (Zoloft) 50 mg PO DAILY 06/13/22 10/11/24 History tolterodine 4 mg capsule,extended 4 mg PO DAILY 06/13/22 10/11/24 History release 24 hr (Detrol LA) bicalutamide 50 mg tablet 50 mg PO DAILY 12/14/22 10/11/24 History ondansetron 4 mg disintegrating 8 mg PO Q6H PRN Nausea 12/14/22 10/10/24 History tablet spironolactone 25 mg tablet 25 mg PO BID 12/14/22 10/11/24 History hydrocodone 5 mg-acetaminophen 325 2 tab PO Q6H PRN pain #30 tabs 08/16/23 10/11/24 Rx mg tablet warfarin 6 mg tablet 6 mg PO 6XW ##0 11/22/23 10/10/24 History allopurinol 100 mg tablet 200 mg PO DAILY 10/10/24 10/11/24 History dextroamphetamine-amphetamine ER 10 mg PO QAM 10/10/24 10/11/24 History 10 mg 24hr capsule,extend release (Adderall XR) enzalutamide 40 mg tablet (Xtandi) 160 mg PO QAM Cancer treatment 10/10/24 10/11/24 History gabapentin 100 mg tablet 1,000 mg PO BEDTIME 10/10/24 10/11/24 History gabapentin 100 mg tablet 500 mg PO QAM 10/10/24 10/11/24 History gabapentin 300 mg tablet,extended 300 mg PO DAILY 10/10/24 10/10/24 History release 24 hr insulin glargine 100 unit/mL 13 unit SUBCUT BEDTIME 10/10/24 10/11/24 History subcutaneous solution oxycodone myristate 9 mg capsule 9 mg PO Q12H Pain 10/10/24 10/11/24 History sprinkle extended release 12 hr(DON'T CRUSH) (Xtampza ER) potassium chloride 10 mEq 10 meq PO DAILY 10/10/24 10/11/24 History tablet,extended release pramipexole 0.5 mg tablet 0.5 mg PO BEDTIME 10/10/24 10/11/24 History pregabalin 150 mg capsule 150 mg PO BEDTIME 10/10/24 10/11/24 History warfarin 6 mg tablet 6 mg PO SEEINSTR 10/10/24 10/10/24 History Allergies Allergy/AdvReac Type Severity Reaction Status Date / Time crab Allergy Severe Deathly Verified 10/11/24 10:51 sick aspartame Allergy Unknown Verified 10/11/24 10:51 carbidopa Allergy Hallucinations, Verified 10/11/24 10:51 anxiety morphine AdvReac Nausea/vomi Verified 10/11/24 10:51 ting Review of Systems Review of Systems Narrative: All else reviewed and otherwise unremarkable except as noted in the history and physical. Exam Vital Signs (past 8 hours): - 10/11/24 11:35 10/11/24 13:16 10/11/24 13:21 Temperature 97 F L 97.3 F L Pulse Rate 84 90 90 Respiratory Rate 15 16 16 Blood Pressure 119/65 129/76 125/74 Pulse Oximetry 97 92 92 Oxygen Delivery Method Room Air Room Air Room Air 10/11/24 13:31 10/11/24 13:37 10/11/24 13:52 Temperature Pulse Rate 90 90 90 Respiratory Rate 21 14 14 Blood Pressure 119/73 116/72 117/74 Pulse Oximetry 94 93 98 Oxygen Delivery Method Room Air Room Air Room Air Oxygen Delivery Method Room Air Narrative Exam Narrative: NAD, alert and oriented, fluent speech, calm. Normocephalic skull, EOMI, anicteric sclera, symmetric pupils. Oropharynx unremarkable, no droop. Neck supple, midline trachea, no adenopathy. Lungs clear, normal rate and effort. Heart regular, no murmur gallop or rub. Abdomen is soft, non distended and non tender. Extremities are free of edema. Skin is free of rash or lesions. Joints are not swollen or deformed. Right knee is wrapped. Judgment appears to be normal. Objective Labs Labs: Laboratory Results - last 24 hr 10/11/24 12:45 Fluid Color Red Fluid Appearance Cloudy Fluid RBC 380374 Fld Tot Nucleated Cell 1178 Fluid Neutrophils % 86 Fluid Lymphocytes % 3 Fluid Meso/Macro/[place] % 11 Fluid Crystals None present Body Fluid Clot No clots present [facility] Medical History Cardiomyopathy DVT (deep venous thrombosis) History of left heart catheterization (12/2019) Atrial fibrillation Paroxysmal A-fib RBBB LAFB (left anterior fascicular block) First degree AV block History of transcatheter aortic valve replacement (TAVR) (08/01/18) Sleep apnea CAD (coronary artery disease) Stress incontinence Enlarged lymph node Chronic anticoagulation Androgen deprivation therapy Stress incontinence, male History of radiation therapy Hydronephrosis, right Prostate cancer Osteoarthritis Hypertension Gout Depression History of prostate cancer Arthritis GERD (gastroesophageal reflux disease) Diabetes Congestive heart failure Pacemaker Surgical History H/O insertion of nephrostomy tube AICD (automatic cardioverter/defibrillator) present (12/30/20) Hx of heart artery stent History of back surgery H/O aortic valve replacement Family History Mother Coronary artery disease involving bypass graft of transplanted heart Cancer Hypertension Social History marital status: number of children: 3 household members: none Previous occupational history: retired Tobacco & Substance Use Smoking Status: Former smoker alcohol intake: former Diet and Exercise caffeine: Yes Assessment & Plan Assessment & Plan narrative: 1. Probable septic right knee, present on admission and active. 2. Gout, present on admission and active. 3. AVR, on chronic warfarin. 4. Possible heart failure of on known cardiac function, present on admission and stable. Plan: -resume warfarin per pharmacy. -IV antibiotics for possible septic arthritis. -follow cultures. -continue chronic medications, substituting oxycodone IR for his long-acting oxycodone which is not on formulary. ANY is October 13, he was from [facility] living. Anticipate probable need for IV antibiotics. Time-Based Coding :: [TOTAL MINUTES] spent with patient and on the chart (including review of chart, obtaining history, exam, reviewing outside data, placing orders, documenting exam and treatment plan, and counseling patient) on [DATE].
--- NOTE | 2024-10-11 15:13 | PC.WOUNDPHOT ---
Addendum entered by Minerva Walls R.N. 10/11/24 15:17: Gluteal cleft Original Note:
--- NOTE | 2024-10-11 15:14 | PC.WOUNDPHOT ---
Addendum entered by Minerva Walls R.N. 10/11/24 15:21: Gluteal cleft Original Note:
--- NOTE | 2024-10-11 15:15 | PC.WOUNDPHOT ---
Addendum entered by Minerva Walls R.N. 10/11/24 15:21: Right hip Original Note:
--- NOTE | 2024-10-11 15:16 | PC.WOUNDPHOT ---
Addendum entered by Minerva Walls R.N. 10/11/24 15:20: Left edinson Original Note:
--- NOTE | 2024-10-11 15:16 | PC.WOUNDPHOT ---
Addendum entered by Minerva Walls R.N. 10/11/24 15:20: Left edinson Original Note:
--- NOTE | 2024-10-11 15:16 | PC.WOUNDPHOT ---
Addendum entered by Minerva Walls R.N. 10/11/24 15:19: Right panus Original Note:
--- NOTE | 2024-10-11 16:00 | PC.ADMIT ---
[email or web address] Admission Note: The patient,Erick Álvarez,74 y/o, was given written information regarding hospital policies, unit procedures and contact persons. Patient's smoking status: Former smoker. Vital Signs - 8 hr 10/11/24 11:35 10/11/24 13:16 10/11/24 13:21 Temperature 97 F L 97.3 F L Pulse Rate 84 90 90 Respiratory Rate 15 16 16 Blood Pressure 119/65 129/76 125/74 Pulse Oximetry 97 92 92 Oxygen Delivery Method Room Air Room Air Room Air 10/11/24 13:31 10/11/24 13:37 10/11/24 13:52 Temperature Pulse Rate 90 90 90 Respiratory Rate 21 14 14 Blood Pressure 119/73 116/72 117/74 Pulse Oximetry 94 93 98 Oxygen Delivery Method Room Air Room Air Room Air Pt to room 219 via bed from pacu at 1415. Alert and Oriented x 3. Denies pain, nausea, or shortness of breath. SCD's on and running. IV HL per MD. Skin check performed and photos uploaded to chart. Pt oriented to room, call light, bed controls and tv controls. Bed alarm on for safety secondary to hx of falls. Pt agrees to not get up without assistance and to call for assistance as needed.
--- NOTE | 2024-10-11 16:04 | OT.IPNOTE ---
OT iesha ordered received this PM, pt asleep and therefore to check on pt tomorrow for OT iesha.
--- NOTE | 2024-10-11 16:46 | PT-IP ANOTE ---
PT eval order received. EMR reviewed. Checked on pt and pt refused PT. pt stated that he feels that it is too soon to move and wants it tomorrow. encouraged pt to move as soon as possible. continues to refuse PT. Informed pt to try to move with nursing staff later today and agreed to move a little tonight with nursing staff. informed nurse.
[2024-10-11] MEDS: ACETAMINOPHEN 325 MG TABLET 650 MG PO (17:38)
[2024-10-11] MEDS: INSULIN LISPRO 100 UNIT/ML 3ML VIAL SUBCUT (17:40)
[2024-10-11] MEDS: FUROSEMIDE 40 MG TABLET PO (18:37)
[2024-10-11] MEDS: ATORVASTATIN 20 MG TABLET 60 MG PO (20:26)
[2024-10-11] MEDS: SENNOSIDES 8.6 MG TABLET 17.2 MG PO (20:26)
[2024-10-11] MEDS: PRAMIPEXOLE 0.25 MG TABLET 0.5 MG PO (20:27)
[2024-10-11] MEDS: GABAPENTIN 300 MG CAPSULE 900 MG PO (20:27)
[2024-10-11] MEDS: GABAPENTIN 100 MG CAPSULE PO (20:27)
[2024-10-11] MEDS: DOCUSATE 100 MG CAPSULE PO (20:27)
[2024-10-11] MEDS: SPIRONOLACTONE 25 MG TABLET PO (20:27)
[2024-10-11] MEDS: PREGABALIN 75 MG CAPSULE 150 MG PO (20:27)
[2024-10-11] MEDS: ROPINIROLE 1 MG TABLET 2 MG PO (20:28)
[2024-10-11] MEDS: INSULIN GLARGINE 100 UNIT/ML 3ML PEN 13 UNIT SUBCUT (20:28)
[2024-10-11 21:03] LABS: Add Manual Diff / Slide Review NO; Basophils Absolute Auto 0 /uL (0-100); Basophils Percent Auto 0.5 % (0-2); Eosinophils Absolute Auto 300 /uL (0-450); Eosinophils Percent Auto 3.4 % (2-4); Hematocrit 23.9 % (41-53); Hemoglobin 7.8 g/dL (13.5-17.5); Lymphocytes Absolute Auto 1100 /uL (1100-4500); Mean Corpuscular HGB Conc 32.7 % (30-36); Mean Corpuscular Hemoglobin 27.4 PG (26-34); Mean Corpuscular Volume 83.7 fL (80-100); Monocytes Absolute Auto 600 /uL (0-900); Neutrophils Absolute Auto 7100 /uL (1500-7000); Neutrophils Percent Auto 77.1 % (50-75); Platelet Count 206 X10^3/uL (150-400); Red Blood Cell Count 2.85 X10^6/uL (4.5-5.9); Red Cell Distribution Width 17.6 % (11.6-14.8); White Blood Cell Count 9.2 X10^3/uL (4.5-11.0)
[2024-10-11 21:09] LABS: INR 1.3 (0.9-1.3); Prothrombin Time 14.9 SECONDS (9.4-12.5)
[2024-10-11 21:19] LABS: BUN Creatinine Ratio 19.4 (6-22); Blood Urea Nitrogen 35 mg/dL (9-20); Calcium 8.3 mg/dL (8.4-10.2); Carbon Dioxide 25 mmol/L (22-32); Chloride 100 mmol/L (98-107); Estimated Glomerular Filt Rate 39 mL/min (>60); Glucose 169 mg/dL (70-99); HEMOLYSIS < 15 (0-50); Potassium 4.3 mmol/L (3.4-5.1); Sodium 133 mmol/L (137-145)
[2024-10-11 21:53] LABS: Hemoglobin A1C% w Est Avg Glu 7.3 % (4.0-6.0)
[2024-10-11] MEDS: NYSTATIN POWDER 15GM 1 APPLIC TOP (22:41)
[2024-10-12] MEDS: HYDROCODONE/ACET 5/325 TABLET 1 TAB PO ×2 (01:20→04:23)
[2024-10-12] MEDS: diphenhydrAMINE 25 MG TABLET 50 MG PO (01:20)
[2024-10-12] MEDS: CEFAZOLIN 2 GM/100 ML PREMIX 100 ML IV ×2 (03:50→20:23)
[2024-10-12 06:10] LABS: Add Manual Diff / Slide Review NO; Basophils Absolute Auto 0 /uL (0-100); Basophils Percent Auto 0.5 % (0-2); Eosinophils Absolute Auto 300 /uL (0-450); Eosinophils Percent Auto 2.8 % (2-4); Hematocrit 25.2 % (41-53); Hemoglobin 8.3 g/dL (13.5-17.5); Lymphocytes Absolute Auto 1000 /uL (1100-4500); Lymphocytes Percent Auto 10.1 % (25-40); Mean Corpuscular HGB Conc 33.1 % (30-36); Mean Corpuscular Hemoglobin 27.8 PG (26-34); Mean Corpuscular Volume 84.3 fL (80-100); Monocytes Absolute Auto 700 /uL (0-900); Monocytes Percent Auto 7.4 % (3-14); Neutrophils Absolute Auto 7700 /uL (1500-7000); Neutrophils Percent Auto 79.2 % (50-75); Platelet Count 202 X10^3/uL (150-400); Red Blood Cell Count 2.99 X10^6/uL (4.5-5.9); Red Cell Distribution Width 17.9 % (11.6-14.8); White Blood Cell Count 9.7 X10^3/uL (4.5-11.0)
[2024-10-12 06:22] LABS: BUN Creatinine Ratio 20.5 (6-22); Blood Urea Nitrogen 36 mg/dL (9-20); Calcium 8.5 mg/dL (8.4-10.2); Carbon Dioxide 22 mmol/L (22-32); Chloride 100 mmol/L (98-107); Estimated Glomerular Filt Rate 40 mL/min (>60); Glucose 151 mg/dL (70-99); HEMOLYSIS < 15 (0-50); Potassium 4.3 mmol/L (3.4-5.1); Sodium 132 mmol/L (137-145)
[2024-10-12] MEDS: FUROSEMIDE 40 MG TABLET PO ×2 (06:58→18:05)
[2024-10-12] MEDS: HYDROMORPHONE 0.5 MG INJ IV ×2 (06:58→23:40)
--- NOTE | 2024-10-12 07:44 | P.PN_ITS ---
Subjective Subjective Interval history: S: He was doing well. No fevers overnight. He was good pain control with regards to the knee. His cultures are pending. He continues on IV antibiotics. Exam Vital Signs (past 8 hours): Oxygen Delivery Method Room Air Oxygen Flow Rate 0 Narrative Exam Narrative: NAD, alert and oriented. Fluent speech. Lungs are clear, normal rate and effort. Heart is regular, no murmur gallop or rub. Abdomen is soft, non distended. Extremities are free of edema. Right knee is wrapped. Objective Labs 10/12/24 05:28 10/12/24 05:28 Labs: Laboratory Results - last 24 hr 10/11/24 10/11/24 10/12/24 12:45 20:50 05:28 WBC 9.2 9.7 RBC 2.85 L 2.99 L Hgb 7.8 L 8.3 L Hct 23.9 L 25.2 L MCV 83.7 84.3 MCH 27.4 27.8 MCHC 32.7 33.1 RDW 17.6 H 17.9 H Plt Count 206 202 Neut % (Auto) 77.1 H 79.2 H Lymph % (Auto) 12.0 L 10.1 L [place] % (Auto) 7.0 7.4 Eos % (Auto) 3.4 2.8 Baso % (Auto) 0.5 0.5 Neut # (Auto) 7100 H 7700 H Lymph # (Auto) 1100 1000 L [place] # (Auto) 600 700 Eos # (Auto) 300 300 Baso # (Auto) 0 0 PT 14.9 H INR 1.3 Sodium 133 L 132 L Potassium 4.3 4.3 Chloride 100 100 Carbon Dioxide 25 22 BUN 35 H 36 H Creatinine 1.80 H 1.76 H Estimated GFR 39 L 40 L BUN/Creatinine Ratio 19.4 20.5 Glucose 169 H 151 H Hemoglobin A1c 7.3 H Calcium 8.3 L 8.5 Fluid Color Red Fluid Appearance Cloudy Fluid RBC 100557 Fld Tot Nucleated Cell 1178 Fluid Neutrophils % 86 Fluid Lymphocytes % 3 Fluid Meso/Macro/[place] % 11 Fluid Crystals None present Body Fluid Clot No clots present [facility] Medical History Cardiomyopathy DVT (deep venous thrombosis) History of left heart catheterization (12/2019) Atrial fibrillation Paroxysmal A-fib RBBB LAFB (left anterior fascicular block) First degree AV block History of transcatheter aortic valve replacement (TAVR) (08/01/18) Sleep apnea CAD (coronary artery disease) Stress incontinence Enlarged lymph node Chronic anticoagulation Androgen deprivation therapy Stress incontinence, male History of radiation therapy Hydronephrosis, right Prostate cancer Osteoarthritis Hypertension Gout Depression History of prostate cancer Arthritis GERD (gastroesophageal reflux disease) Diabetes Congestive heart failure Pacemaker Surgical History H/O insertion of nephrostomy tube AICD (automatic cardioverter/defibrillator) present (12/30/20) Hx of heart artery stent History of back surgery H/O aortic valve replacement Family History Mother Coronary artery disease involving bypass graft of transplanted heart Cancer Hypertension Social History marital status: number of children: 3 household members: none Previous occupational history: retired Smoking Status: Former smoker alcohol intake: former caffeine: Yes Assessment & Plan Assessment & Plan narrative: 1. Probable septic right knee, present on admission and active. 2. Gout, present on admission and active. 3. AVR, on chronic warfarin. Present on admission and stable. 4. Possible heart failure of on known cardiac function, present on admission and stable. Plan: -resumed warfarin per pharmacy. -IV antibiotics for possible septic arthritis. Need to decide on an IV vs PO antibiotic plan. -follow cultures. Pending at this time. -continue chronic medications, substituting oxycodone IR for his long-acting oxycodone which is not on formulary. ANY is October 13, he is from [facility]. Time-Based Coding :: [TOTAL MINUTES] spent with patient and on the chart (including review of chart, obtaining history, exam, reviewing outside data, placing orders, documenting exam and treatment plan, and counseling patient) on [DATE]. Quality VTE Deep Vein Thrombosis/Pulmonary Embolism Present on Admission: No
--- NOTE | 2024-10-12 07:48 | P.PN_ITS ---
Subjective Subjective Interval history: no organisms on gram strain from synovial fluid and cell count only 1140-- so low likelihood septic OA - can dc back to SNF w/o Abx -- while awaiting PCR and culture -- if these remain consistent with inflammatory arthritis then consider outpt steroid injection -intra-articular after cultures and pcr return w/o signs of bacteria. Exam Vital Signs (past 8 hours): Oxygen Delivery Method Room Air Oxygen Flow Rate 0 Objective Labs 10/12/24 05:28 10/12/24 05:28 Labs: Laboratory Results - last 24 hr 10/11/24 10/11/24 10/12/24 12:45 20:50 05:28 WBC 9.2 9.7 RBC 2.85 L 2.99 L Hgb 7.8 L 8.3 L Hct 23.9 L 25.2 L MCV 83.7 84.3 MCH 27.4 27.8 MCHC 32.7 33.1 RDW 17.6 H 17.9 H Plt Count 206 202 Neut % (Auto) 77.1 H 79.2 H Lymph % (Auto) 12.0 L 10.1 L [place] % (Auto) 7.0 7.4 Eos % (Auto) 3.4 2.8 Baso % (Auto) 0.5 0.5 Neut # (Auto) 7100 H 7700 H Lymph # (Auto) 1100 1000 L [place] # (Auto) 600 700 Eos # (Auto) 300 300 Baso # (Auto) 0 0 PT 14.9 H INR 1.3 Sodium 133 L 132 L Potassium 4.3 4.3 Chloride 100 100 Carbon Dioxide 25 22 BUN 35 H 36 H Creatinine 1.80 H 1.76 H Estimated GFR 39 L 40 L BUN/Creatinine Ratio 19.4 20.5 Glucose 169 H 151 H Hemoglobin A1c 7.3 H Calcium 8.3 L 8.5 Fluid Color Red Fluid Appearance Cloudy Fluid RBC 665322 Fld Tot Nucleated Cell 1178 Fluid Neutrophils % 86 Fluid Lymphocytes % 3 Fluid Meso/Macro/[place] % 11 Fluid Crystals None present Body Fluid Clot No clots present ON LICENSE OF [facility] Medical History Cardiomyopathy DVT (deep venous thrombosis) History of left heart catheterization (12/2019) Atrial fibrillation Paroxysmal A-fib RBBB LAFB (left anterior fascicular block) First degree AV block History of transcatheter aortic valve replacement (TAVR) (08/01/18) Sleep apnea CAD (coronary artery disease) Stress incontinence Enlarged lymph node Chronic anticoagulation Androgen deprivation therapy Stress incontinence, male History of radiation therapy Hydronephrosis, right Prostate cancer Osteoarthritis Hypertension Gout Depression History of prostate cancer Arthritis GERD (gastroesophageal reflux disease) Diabetes Congestive heart failure Pacemaker Surgical History H/O insertion of nephrostomy tube AICD (automatic cardioverter/defibrillator) present (12/30/20) Hx of heart artery stent History of back surgery H/O aortic valve replacement Family History Mother Coronary artery disease involving bypass graft of transplanted heart Cancer Hypertension Social History marital status: number of children: 3 household members: none Previous occupational history: retired Smoking Status: Former smoker alcohol intake: former caffeine: Yes Assessment & Plan Post-op Postoperative Procedures: Procedures Operation Date: 10/11/24 12:15 Actual Procedure Side Surgeon p Irrigation debridement arthroscopic right knee Right Roselyn Christian MD Quality VTE Deep Vein Thrombosis/Pulmonary Embolism Present on Admission: No
--- NOTE | 2024-10-12 07:52 | PM.PNPO.1 ---
Subjective Subjective Date Patient Seen: 10/12/24 Time Patient Seen: 07:53 Interval history: Patient's pain is controlled with oral medication. ?Pain is localized to surgical site. ?Patient declines any new numbness or tingling at the surgical extremity. ?Patient denies any shortness of breath, dizziness, light-headedness, nausea, vomiting, fever or chills. Exam Vital Signs (past 8 hours): Oxygen Delivery Method Room Air Oxygen Flow Rate 0 Narrative Exam Narrative: 5/5 strength in hip flexors, quadriceps, hamstrings, DF, PF, EHL bilaterally. Sensation to light touch intact throughout BLE. Calves soft, compressible, nontender. Dressing placed intraoperatively CDI. Patient is able to ambulate with the walker with 1 assist. Objective Labs 10/12/24 05:28 10/12/24 05:28 Labs: Laboratory Results - last 24 hr 10/11/24 10/11/24 10/12/24 12:45 20:50 05:28 WBC 9.2 9.7 RBC 2.85 L 2.99 L Hgb 7.8 L 8.3 L Hct 23.9 L 25.2 L MCV 83.7 84.3 MCH 27.4 27.8 MCHC 32.7 33.1 RDW 17.6 H 17.9 H Plt Count 206 202 Neut % (Auto) 77.1 H 79.2 H Lymph % (Auto) 12.0 L 10.1 L [place] % (Auto) 7.0 7.4 Eos % (Auto) 3.4 2.8 Baso % (Auto) 0.5 0.5 Neut # (Auto) 7100 H 7700 H Lymph # (Auto) 1100 1000 L [place] # (Auto) 600 700 Eos # (Auto) 300 300 Baso # (Auto) 0 0 PT 14.9 H INR 1.3 Sodium 133 L 132 L Potassium 4.3 4.3 Chloride 100 100 Carbon Dioxide 25 22 BUN 35 H 36 H Creatinine 1.80 H 1.76 H Estimated GFR 39 L 40 L BUN/Creatinine Ratio 19.4 20.5 Glucose 169 H 151 H Hemoglobin A1c 7.3 H Calcium 8.3 L 8.5 Fluid Color Red Fluid Appearance Cloudy Fluid RBC 010641 Fld Tot Nucleated Cell 1178 Fluid Neutrophils % 86 Fluid Lymphocytes % 3 Fluid Meso/Macro/[place] % 11 Fluid Crystals None present Body Fluid Clot No clots present PFSH Medical History Cardiomyopathy DVT (deep venous thrombosis) History of left heart catheterization (12/2019) Atrial fibrillation Paroxysmal A-fib RBBB LAFB (left anterior fascicular block) First degree AV block History of transcatheter aortic valve replacement (TAVR) (08/01/18) Sleep apnea CAD (coronary artery disease) Stress incontinence Enlarged lymph node Chronic anticoagulation Androgen deprivation therapy Stress incontinence, male History of radiation therapy Hydronephrosis, right Prostate cancer Osteoarthritis Hypertension Gout Depression History of prostate cancer Arthritis GERD (gastroesophageal reflux disease) Diabetes Congestive heart failure Pacemaker Surgical History H/O insertion of nephrostomy tube AICD (automatic cardioverter/defibrillator) present (12/30/20) Hx of heart artery stent History of back surgery H/O aortic valve replacement Family History Mother Coronary artery disease involving bypass graft of transplanted heart Cancer Hypertension Social History marital status: number of children: 3 household members: none Previous occupational history: retired Smoking Status: Former smoker alcohol intake: former caffeine: Yes Assessment & Plan Post-op Postoperative Procedures: Procedures Operation Date: 10/11/24 12:15 Actual Procedure Side Surgeon p Irrigation debridement arthroscopic right knee Right Roselyn Christian MD Postoperative day: 1 Postoperative status: doing well Postoperative plan: routine post-op care and ambulate Postoperative plan narrative: H&H improving yesterday. Patient is hypotensive this morning. Notified medicine. He states he will evaluate to start IV fluids. Awaiting growth from cultures taken during the procedure. If positive for growth while establish IV antibiotics with an Infectious Disease. There is no growth treat as gout consider outpatient intra-articular corticosteroid injection as patient can not take oral anti-inflammatories due to chronic anticoagulation. Ambulate and weight bear as tolerated with assistive devices. Warfarin for DVT prevention Baseline pain relief with acetaminophen 650mg every 6 hours as needed for pain. Patient has been prescribed oxycodone 5 mg every 4 hours as needed for breakthrough pain. Keep dressing clean and dry. Keep dressing on until first office visit. If dressing becomes dirty or disrupted, replace with appropriate sized dressing. Follow up in clinic in 2 weeks for wound check. Contact clinic if there are any questions or concerns. Time Spent With Patient Time with patient: 15-24 minutes Quality VTE Deep Vein Thrombosis/Pulmonary Embolism Present on Admission: No
[2024-10-12 08:00] VITALS: BP 133/60; PULSE 78; RESP 16; TEMP 36.5; O2SAT 94
[2024-10-12] MEDS: SERTRALINE 50 MG TABLET PO (10:19)
[2024-10-12] MEDS: GABAPENTIN 300 MG CAPSULE 600 MG PO (10:19)
[2024-10-12] MEDS: ROPINIROLE 1 MG TABLET 2 MG PO ×2 (10:19→20:22)
[2024-10-12] MEDS: DOCUSATE 100 MG CAPSULE PO ×2 (10:20→20:21)
[2024-10-12] MEDS: lisinopriL 5 MG TABLET 2.5 MG PO (10:20)
[2024-10-12] MEDS: allopurinoL 100 MG TABLET 200 MG PO (10:20)
[2024-10-12] MEDS: METOPROLOL ER 25 MG TABLET 12.5 MG PO (10:21)
[2024-10-12] MEDS: SPIRONOLACTONE 25 MG TABLET PO ×2 (10:21→20:20)
[2024-10-12] MEDS: FERROUS SULFATE 325 MG TABLET PO (10:21)
[2024-10-12] MEDS: PANTOPRAZOLE DR 40 MG TABLET PO (10:21)
[2024-10-12] MEDS: OXYBUTYNIN 5 MG ER TAB 10 MG PO (10:23)
[2024-10-12] MEDS: SODIUM CHLORIDE 0.9% 1,000 ML 100 ML IV ×2 (10:30→20:31)
[2024-10-12] MEDS: POTASSIUM CHLORIDE 10 MEQ TAB PO (10:31)
--- NOTE | 2024-10-12 10:58 | CM.DANOTE ---
Initial DCP Assessment Visit Note Reviewed EMR and team rounds for status updates. Met with pt at bedside to introduce self and role, pt was found to be alert/oriented, able to share that he lives at [facility], and that if needed, he prefers [facility] for rehab. OIL PAINT SHADER will assist with transport and coordination needs for either disposition, depending on pending cultures. He may need IV ABO's if cultures are positive. Payor: [facility] Attending: Dr. Christian Pt is a 74 year-old M post-op day 1 from a R-total knee arthroplasty. He has done well postoperatively, has good pain control, and will be working with therapies later today. Pt has a hx of worsening R-knee pain and swelling after having had a fall about 3-weeks ago. When Dr. Christian examined him, she did aspirate the knee and found it was full of infectious fluid, concerning for septic arthritis/gout. Pt had been on a course of oral antibiotics without benefit. Cultures are pending. DCP will continue to monitor for either SNF rehab w/IV ABO's vs. back to [facility] with oral ABO's. Discharge Planning/Care Management CM Discharge Assessment Start: 10/12/24 10:49 Freq: Status: Active Protocol: Document 10/12/24 10:49 DPL (Rec: 10/12/24 10:58 DPL [id number]) Discharge Planning Assessment Assigned Instrument Maker Apprentice JAYLEN Avendaño Advance Directives? Yes: POLST Advance Directives on File Yes History Provided By Patient,Medical Record Has Patient been admitted in last 30 No days? Prior Living Arrangements Assisted Living Comment [facility] Household Members none Type of transporation used prior to Relies on Others admit Facility Name Admitted From: [facility] Willing to Return to Facility? Yes Independent with ADL's No: modified independent Is patient alert and oriented? Yes Needs Assistance With Meal Prep,Managing Medications ,Home Chores / Shopping Caregiver for Another No Comment open to SNF, prefers [facility] Comment Awaiting transfer for placement of nephrostomy tube that has dislodged. Anticipate Back to [facility] when medically cleared and at functional baseline Discharge Plan Transfer to Higher Level of Care Transportation Arrangement BLS Referrals Initiated None needed Additional Comment Pt may need IV ABO's, and if so, will need SNF. Otherwise, he will d/c back to [facility] on orals. If patient plan is SNF: Has PASSR been No completed? Whiteboard Updated in Patient Room with Yes name and ext. # of Instrument Maker Apprentice Review Status In Process Please Provide Date Initial DC 10/12/24 Assessment Was Performed Pre-Anesthesia Assessment Start: 10/06/24 13:40 Freq: Status: Complete Protocol: Document 10/09/24 09:39 CAB (Rec: 10/06/24 13:56 LB [id number]) Pre-Anesthesia Assessment PAC Comment 10/06/24 Chart review. Patient resides at [facility]. Unable to reach [facility] nursing to review meds/history x 3 attempts. Phone review of medications with Leydi, residential door installer at [facility]. A nurse will call and confirm with our rim fire charger operator Kathy this afternoon. Patient Information Reviewed Via Chart Review Diagnostic Results BMP/CMP,PT/INR,Urinalysis Comment 09/24/24 at . Hgb 9.5 Hct 28.5 Na+ 133 Primary Care Provider Vandana Hart Seen Specialist in Last 12 Months Yes Specialist Seen Emergency,Oncologist, Orthopedist Primary Language Colombian Preferred Language Colombian Document Control Specialist Required No Height 175.26 cm Weight 102.512 kg Body Mass Index (BMI) 33.3 Hearing Ability Normal Visual Assist Glasses Dentition Type Teeth, Natural Present Barriers to Learning None Hx Anesthesia Reactions No Anesthesia Review Requested Yes: Surgeon requested re: Multiple Medical Tyre Fitter No alcohol intake former Smoking Status Former smoker Tobacco type cigarettes how long ago did patient quit smoking Quit ETOH and smoking 1970's. Substance Use Type [#R] does not use Musculoskeletal Symptoms Joint Pain History of Falling (Recent or History of Yes ) Patient is completely paralyzed or No completely immobile Mental Status Oriented to own ability Is patient on oxygen? No Hx Sleep Apnea Yes Sleep apnea treatment Treatment unknown Currently Taking a Beta Rosa Yes: Metoprolol 12.5mg daily. Hx Chest Pain Yes Hx SOB Yes Hx Syncope or Dizziness Yes Anti-Coagulant Therapy Yes: Warfarin-advised to hold [address] Christian Has a Diesel Retrofit Designer Yes: Last visit 05/23/[address] Carpenter Cardiac Testing Yes: Echo 07/25/24 EF 60-65%. Hx Pacemaker/ICD Yes: BiVentricular AICD-St Ever Pacemaker Rep Required? Yes: Rep notified 10/09/24 Comment Cardiac records scanned and in surgery folder Gastrointestinal Symptoms Reflux Hx Urinary Self Catheterization Yes Comment Nephrostomy tube in place. 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 Yes Marital Status Lives With none Current Living Arrangements Assisted Living Comment [facility]. Patient Discharge Plan Description Group Home Facility/Rehab Emergency Contact Name Arlet Bueno - daughter Emergency Contact Advance Directives? Yes: POLST Advance Directives on File Yes Power of Armor Senior Sergeant Yes Power of Armor Senior Sergeant Name Arlet Bueno - leonora Power of Armor Senior Sergeant
[2024-10-12] MEDS: BICALUTAMIDE 50 MG TABLET PO (11:56)
--- NOTE | 2024-10-12 12:03 | OT.IP.EVAL ---
Current Diagnoses Pyogenic arthritis, unspecified (10/11/24) Effusion, unspecified knee (10/11/24) Pain in right knee (10/11/24) Surgery Performed Operation Date: 10/11/24 12:15 Actual Procedures p Irrigation debridement arthroscopic right knee(Right) - Roselyn Christian MD Past Medical History (Last Reviewed 10/11/24 @ 15:50 by Grant Ramírez MD) Androgen deprivation therapy Arthritis Atrial fibrillation CAD (coronary artery disease) Cardiomyopathy Chronic anticoagulation Congestive heart failure Depression Diabetes DVT (deep venous thrombosis) Enlarged lymph node First degree AV block GERD (gastroesophageal reflux disease) Gout History of left heart catheterization (12/2019) History of prostate cancer History of radiation therapy History of transcatheter aortic valve replacement (TAVR) (08/01/18) Hydronephrosis, right Hypertension LAFB (left anterior fascicular block) Osteoarthritis Pacemaker Paroxysmal A-fib Prostate cancer RBBB Sleep apnea Stress incontinence Stress incontinence, male Surgical History (Last Reviewed 10/11/24 @ 15:50 by Grant Ramírez MD) AICD (automatic cardioverter/defibrillator) present (12/30/20) H/O aortic valve replacement H/O insertion of nephrostomy tube History of back surgery Hx of heart artery stent Occupational Therapy Inpatient Evaluation/Re-Eval M1 PT/OT-IP Prior Functional Status Start: 10/12/24 12:02 Freq: NEEDED Status: Active Protocol: Document 10/12/24 12:03 [facility] (Rec: 10/12/24 12:28 [facility] Desktop) Medical Review Prior Functional Status Communication I Mobility and Gait Pt states uses a 4ww to just transfer to his due to recently limited walking due to his right knee pain. Activities of Daily Living and IADL's Pt states due to his knee pain has had to have staff assist him with dressing and toileting needs. Prior pt had SBA for showering needs. Prior Functional Level (Other details) Pt lives at [facility]. Social History Household Members none Living Arrangements Assisted Living Home Equipment Four Wheel Walker,Tub Transfer Bench,Lip And Gate Builder,Grab Bars Near Toilet,Grab Bars In Shower M2 OT-IP Current Condition Start: 10/12/24 12:02 Freq: Status: Active Protocol: Document 10/12/24 12:03 [facility] (Rec: 10/12/24 12:28 [facility] Desktop) Occupational Therapy Current Condition Current Condition Evaluation Date 10/12/24 Treatment Diagnosis S/P Right knee I and D Diagnosis Onset Date 10/11/24 M3 OT- IP Subjective and Pain Start: 10/12/24 12:02 Freq: Status: Active Protocol: Document 10/12/24 12:03 [facility] (Rec: 10/12/24 12:28 [facility] Desktop) OT- Subjective Occupational Therapy Visit Type Type Initial Evaluation Visit Start Time : Visit Stop Time 12:03 Notes Pt's requesting cath bag to be changed if able, nursing notified.Small tear in the cath bag where the strap connects was taped. Occupational Therapy Visit Comments Patient Comments Pt agreed to get up. Patient/Caregiver Goals TO get better and be able to get stronger overall for ADL and mobility needs. OT Pain Assessment Pain When Pain Assessed At Rest Pain Present Pain Present Pain Reported Location right knee Intensity 4 Scale Used Numeric (0 - 10) M4 OT- IP ADL's Start: 10/12/24 12:02 Freq: Status: Active Protocol: Document 10/12/24 12:03 [facility] (Rec: 10/12/24 12:28 [facility] Desktop) OT [id number]-Tdeg-Pframff Comments OT Self-Feeding Comments Not at meal time. OT ADL-Grooming Comments OT Grooming Comments Not performed. OT ADL-Oral Care Comments Oral Care Comments Not performed. OT ADL-Dressing General Eval Lower Body Dressing Ability Maximum Assistance Areas Needing Assistance Socks Comments OT Dressing Comments Able to practice use of ec teacher and sock aid aid. Educated best to dress the RLE first and take out last. OT ADL-Toileting Comments OT Toileting Comments Pt used the urinal prior to OT entering the room. OT ADL-Bathing Comments OT Bathing Comments Not performed. M5 OT- IP IADL's Start: 10/12/24 12:02 Freq: Status: Active Protocol: Document 10/12/24 12:03 [facility] (Rec: 10/12/24 12:28 [facility] Desktop) OT-Instrumental Activities of Daily Living Home Safety Awareness Awareness of Need for Assistance at Home Good Awareness Ability to Problem Solve Emergency Able to Problem Solve Situations Medication Management Medication Management Caregiver Administers Money Management Money Management Caregiver Provides Assistance Meal Preparation Meal Preparation Caregiver Provides Assist Therapeutic Specialist Therapeutic Specialist Caregiver Provides Assist M6 OT- IP Functional Cognition Start: 10/12/24 12:02 Freq: Status: Active Protocol: Document 10/12/24 12:03 [facility] (Rec: 10/12/24 12:28 [facility] Desktop) Cognitive Factors Limiting Selfcare Function Cognitive Ability Level of Alertness Alert Patient Orientation Name,Day of Week,Situation Attention Span Ability Capable of Focused Attention, Capable of Sustained Attention Ability to Follow Commands Able to Follow One Step Commands Cognitive Comments Cognitive Assessment Comments Pt able to follow commands for ADL and mobility needs. Pt states lives at [facility] as he admits that he would abuse his medications if it was up to him to take his meds. When asked if he was suicidal, pt states no. Pt may benefit from SLUMS. OT- Vision and Hearing OT- Hearing Assessment OT- Hearing Assessment WFL OT- Vision Assessment Visual Acuity Glasses All The Time Visual Attentiveness WFL Occular Pursuits WFL M7 OT- IP Mobility and Balance Start: 10/12/24 12:02 Freq: Status: Active Protocol: Document 10/12/24 12:03 [facility] (Rec: 10/12/24 12:28 [facility] Desktop) OT- Bed Mobility Assessment Supine to Sit Supine to Sit Assist Minimal Assistance Sit to Supine Sit to Supine Assist Minimal Assistance OT-Transfer Assessment Sit to and From Stand Sit to and from Stand Minimal Assistance,Moderate Assistance Transfers Transfer Ability Minimal Assistance Technique Transfer Destination Bed,Chair Transfer Technique Stand Step Pivot Devices Transfer Assistive Devices Gait Belt,Front Wheeled Walker Comments Mobility Comments KARTHIK for RLE management to help get into and out of the bed. KARTHIK to MODA to stand and vc to push up from the armrest of the recliner to stand to the FWW. Pt able to transfer but get SOB afterwards and needing a minute to recover. OT- Balance Assessment Sitting Balance and Reactions Static Sitting Balance Ability Good Dynamic Sitting Balance Ability Good Standing Balance and Reactions Static Standing Balance Ability Fair Dynamic Standing Balance Ability Fair M8 OT- IP Objective Assessments Start: 10/12/24 12:02 Freq: Status: Active Protocol: Document 10/12/24 12:03 [facility] (Rec: 10/12/24 12:28 [facility] Desktop) OT Gross Range of Motion Upper Extremity Range of Motion Assessment Bilaterally Impaired ROM Impairments Decreased at end ROM, pt tends to move arms up into shoulder scaption OT Strength Upper Extremity Strength Assessment Bilaterally Impaired Comments Strength Comments For available ROM, BUE 3+/4- to 4-/5 from proximal to distal. M9 OT- IP Assessment and Plan Start: 10/12/24 12:02 Freq: Status: Active Protocol: Document 10/12/24 12:03 [facility] (Rec: 10/12/24 12:28 [facility] Desktop) OT Summary Assessment and Plan Potential Rehabilitation Potential Good Analytic Complexity at Evaluation Moderate Summary OT Impairments Pain,Range of Motion,Strength, Balance,Functional Mobility, Grooming,Dressing,Toileting, Bathing,Toilet Transfers, Shower Transfers,Activity Tolerance Progress Towards Goals Slow Progress due to Pain,Slow Progress due to Medical Issues,Slow Progress due to Activity Tolerance Assessment Summary Pt MOD complexity and main barriers are pain, activity tolerance, endurance , and strength. Pt will needing assist for ADL and mobility needs now. Pt will benefit from SNF to improve overall independence with ADL and mobility needs. Pt is very motivated and cooperative. Goals Self-Feeding Goal Independent Grooming Goal Independent Dressing Goal Independent Toileting Goal Independent Bathing Goal Standby Assistance Toilet Transfer Goal Independent Shower Transfer Goal Standby Assistance Days to Meet Goals 15 Frequency of Treatment Other frequency 5x/week Treatment Plan OT Treatment Plan ADL Training,Functional Mobility,Patient/Family Education,Discharge Planning Discharge Recommendations OT Discharge Recommendations SNF Rehab Transportation Needs at Discharge Wheelchair/Cabulance
[2024-10-12 12:04] VITALS: BP 130/68
--- NOTE | 2024-10-12 12:52 | PT.IIE ---
Current Diagnoses Pyogenic arthritis, unspecified (10/11/24) Effusion, unspecified knee (10/11/24) Pain in right knee (10/11/24) Surgery Performed Operation Date: 10/11/24 12:15 Actual Procedures p Irrigation debridement arthroscopic right knee(Right) - Roselyn Christian MD Surgical History (Last Reviewed 10/11/24 @ 15:50 by Grant Ramírez MD) AICD (automatic cardioverter/defibrillator) present (12/30/20) H/O aortic valve replacement H/O insertion of nephrostomy tube History of back surgery Hx of heart artery stent Medical History (Last Reviewed 10/11/24 @ 15:50 by Grant Ramírez MD) Androgen deprivation therapy Arthritis Atrial fibrillation CAD (coronary artery disease) Cardiomyopathy Chronic anticoagulation Congestive heart failure Depression Diabetes DVT (deep venous thrombosis) Enlarged lymph node First degree AV block GERD (gastroesophageal reflux disease) Gout History of left heart catheterization (12/2019) History of prostate cancer History of radiation therapy History of transcatheter aortic valve replacement (TAVR) (08/01/18) Hydronephrosis, right Hypertension LAFB (left anterior fascicular block) Osteoarthritis Pacemaker Paroxysmal A-fib Prostate cancer RBBB Sleep apnea Stress incontinence Stress incontinence, male Physical Therapy Inpatient Evaluation/Re-Eval M1 PT/OT-IP Prior Functional Status Start: 10/12/24 12:02 Freq: NEEDED Status: Active Protocol: Document 10/12/24 12:52 [facility] (Rec: 10/12/24 13:24 [facility] Desktop) Medical Review Prior Functional Status Medical History Reviewed Yes Diet/Fluid Consistency Regular Communication Independent, glasses Mobility and Gait Pt states uses a 4WW to ambulate in his facility. He has a wheelchair for long distances. His right knee pain has been limiting his distances of gait before this admission. Activities of Daily Living and IADL's Pt states due to his knee pain has had to have staff assist him with dressing and toileting needs. Prior pt had SBA for showering needs and got to/from toilet on his own. Prior Functional Level (Other details) Pt lives at [facility]. He goes to the dining room for one meal a day. He skips breakfast. He has dinner delivered to his room. He reports he is out of energy at about 3 PM every day so he just stays in his room after that time. He sleeps in his recliner as needed to manage his right knee pain. He has a chronic nephrostomy tube right side. Social History Household Members none Living Arrangements Assisted Living Number of Floors (Floors) One Floor Number of Stairs To Enter/Railing? none Home Equipment Four Wheel Walker,Manual Wheelchair,Tub Transfer Bench, Motorcycle Deliverer,Grab Bars Near Toilet, Grab Bars In Shower Employment Status Retired Additional Social History Comment he reports a hx of SNF rehab at [facility] M2 PT-IP Current Condition Start: 10/12/24 12:54 Freq: NEEDED Status: Active Protocol: Document 10/12/24 12:52 [facility] (Rec: 10/12/24 13:24 [facility] Desktop) Physical Therapy Current Condition Current Condition Evaluation Date 10/12/24 Treatment Diagnosis Septic right knee s/p I&D, impaired gait Onset Date 10/11/24 M3 PT-IP Subjective Start: 10/12/24 12:54 Freq: NEEDED Status: Active Protocol: Document 10/12/24 12:52 [facility] (Rec: 10/12/24 13:24 [facility] Desktop) Subjective Physical Therapy Visit Type Type Initial Evaluation Visit Start Time 12:30 Visit Stop Time 12:52 Notes 22 min Number of BLAST FURNACE CHECKER Visits 0 Physical Therapy Visit Comments Patient Comments He reports he is weaker than normal with right knee pain and limited ability to walk. Patient Goals He wants to get stronger and be able to walk in his facility with his walker Therapy Pain Assessment Pain When Pain Assessed During Mobility Pain Present Pain Present Pain Reported Location right knee Intensity 5 Scale Used Numeric (0 - 10) Description Aching,Tender,With Movement Pain Behaviors Guarding,Wincing Pain Management Techniques Elevation M4 PT-IP Mobility and Gait Start: 10/12/24 12:54 Freq: NEEDED Status: Active Protocol: Document 10/12/24 12:52 [facility] (Rec: 10/12/24 13:24 [facility] Desktop) PT-Transfer Assessment Sit to and From Stand Sit to and from Stand Contact Guard Assistance Equipment Transfer Assistive Device Gait Belt,Front Wheeled Walker Transfers Transfer Destination Bedside Commode Transfer Technique Stand Step Pivot Transfer Ability Level of Assist Contact Guard Assistance Comments Mobility Comments Pt sitting up in recliner this visit and wants to stay up for lunch. He reports decreased right knee pain with elevation of right LE. Pt up to bedside commode to urinate during this visit. Gait Assessment Gait Gait Assistance Required: Contact Guard Assist,Minimum Assistance Distance (Feet) 15 Assistive Devices Assistive Device Gait Belt,Front Wheeled Walker Gait Deviations General Gait Pattern Antalgic,Decreased Stride Length,Flexed Trunk Comments Gait Comments Right knee pain and fatigue limits his distance of gait. Noted he keeps right knee mildly flexed during stance phase of gait. He reports pain with weight bearing on right knee. He demonstrates good use of FWW and UE support during gait. Stair Climbing Assessment Comments Stair Climbing Comments no stairs at home PT-Balance Assessment Sitting Balance and Reactions Static Sitting Balance Ability Normal Dynamic Sitting Balance Ability Normal Standing Balance and Reactions Static Standing Balance Ability Good Dynamic Standing Balance Ability Fair Device Used FWW M5 PT-IP Objective Assessments Start: 10/12/24 12:54 Freq: NEEDED Status: Active Protocol: Document 10/12/24 12:52 [facility] (Rec: 10/12/24 13:24 [facility] Desktop) Orientation Orientation/Cognition Level of Alertness Alert Orientation Name,Age,Birthday,Month,Date, Year,Day of Week,Place, Situation Language Function Ability No Deficits Noted Safety Awareness Understands Safety Issues Memory Description No Deficits Noted Comments wearing glasses Gross Range of Motion Upper Extremity ROM Assessment Within Functional Limits Lower Extremity ROM Assessment Right Impaired Impairments right knee pain and swelling, active ROM 20-85 degrees Strength Upper Extremity Strength Assessment Within Functional Limits Lower Extremity Strength Hip flexion 3+/5 Knee extension 3+/5, flexion 3+/5 Ankle DF 4/5 Comments Strength Comments pain limiting right LE strength Coordination Assessment Gross Coordination Gross Coordination WNL Sensation Assessment Sensation Gross Sensation Right LE Impaired,Left LE Impaired Sensation Description Numbness Comments Sensation Comments hx neuropathy in bilateral feet Muscle Tone Muscle Tone WNL Yes M6 PT-IP Treatment Start: 10/12/24 12:54 Freq: NEEDED Status: Active Protocol: Document 10/12/24 12:52 [facility] (Rec: 10/12/24 13:24 [facility] Desktop) Physical Therapy Treatment Exercises Exercises Ankle Pumps,Seated Knee Flexion/Extension Education Education Provided Safety Other Treatments Other Treatment Performed other exercise: seated hip flexion M7 PT-IP Assessment and Plan Start: 10/12/24 12:54 Freq: NEEDED Status: Active Protocol: Document 10/12/24 12:52 [facility] (Rec: 10/12/24 13:24 [facility] Desktop) PT Summary Assessment and Plan Potential Rehabilitation Potential Good Status of Condition at Evaluation Evolving Summary Impairments Pain,ROM,Strength,Balance, Sensation,Bed Mobility, Transfers,Gait,Activity Tolerance Assessment Summary Erick is alert and sitting up in the recliner today. He reports gradual decline in his strength and ability to walk with his walker with onset of new right knee pain. He reports his knee pain is better since surgery (I&D). He demonstrates decreased strength and limited gait this visit. He was able to participate in knee exercises this visit. Pt left up in recliner for lunch. Recommend SNF rehab at discharge to assist with his functional recovery including return to gait with his FWW for distances at his facility. Goals Bed Mobility Goal Independent Transfer Goal Independent,Front Wheeled Walker,Four Wheeled Walker Gait Goal Standby Assistance,Front Wheel Walker,Four Wheel Walker Gait Distance 50 feet Days to Meet Goals 5 Frequency of Treatment Frequency Of Treatment Once a Day Treatment Plan Physical Therapy Treatment Plan Bed Mobility Training,Transfer Training,Gait Training, Therapeutic Exercise,Balance Retraining,Discharge Planning, Hot or Cold Pack,Neuromuscular Re-ed Precautions Other Precautions right nephrostomy tube Weight Bearing Status Weight Bearing Status Weight Bear as Tolerated Allowed Weight Bearing Amount (enter % right knee or #) (%) Recommendations To Nursing Amount of Assist Needed 1 Person Assist Discharge Recommendations PT Discharge Recommendations SNF Rehab Transportation Needs at Discharge Wheelchair/Cabulance - PT assist 1
[2024-10-12 16:00] VITALS: BP 99/68; PULSE 73; RESP 16; TEMP 36.7; O2SAT 95
[2024-10-12] MEDS: GABAPENTIN 300 MG CAPSULE PO (16:38)
[2024-10-12] MEDS: WARFARIN 1 MG, WARFARIN 5 MG 6 MG PO (16:38)
[2024-10-12] MEDS: HYDROCODONE/ACET 5/325 TABLET 2 TAB PO ×2 (16:45→21:19)
[2024-10-12] MEDS: INSULIN LISPRO 100 UNIT/ML 3ML VIAL SUBCUT (16:50)
[2024-10-12 20:00] VITALS: BP 102/46; PULSE 76; RESP 18; TEMP 36.1; O2SAT 97
[2024-10-12] MEDS: GABAPENTIN 100 MG CAPSULE PO (20:20)
[2024-10-12] MEDS: SENNOSIDES 8.6 MG TABLET 17.2 MG PO (20:21)
[2024-10-12] MEDS: ATORVASTATIN 20 MG TABLET 60 MG PO (20:21)
[2024-10-12] MEDS: PREGABALIN 75 MG CAPSULE 150 MG PO (20:22)
[2024-10-12] MEDS: GABAPENTIN 300 MG CAPSULE 900 MG PO (20:22)
[2024-10-12] MEDS: PRAMIPEXOLE 0.25 MG TABLET 0.5 MG PO (20:22)
[2024-10-12] MEDS: INSULIN GLARGINE 100 UNIT/ML 3ML PEN 13 UNIT SUBCUT (20:26)
[2024-10-12] MEDS: NYSTATIN POWDER 15GM 1 APPLIC TOP (20:33)
[2024-10-12] MEDS: ACETAMINOPHEN 325 MG TABLET 650 MG PO (23:40)
[2024-10-13] MEDS: CEFAZOLIN 2 GM/100 ML PREMIX 100 ML IV ×2 (04:25→12:07)
[2024-10-13] MEDS: FUROSEMIDE 40 MG TABLET PO (07:06)
[2024-10-13] MEDS: HYDROCODONE/ACET 5/325 TABLET 2 TAB PO (07:16)
--- NOTE | 2024-10-13 07:42 | PM.PN.1 ---
Subjective Subjective Interval history: S: Some swelling of the lower leg and knee pain. Otherwise he was doing well. Exam Vital Signs (past 8 hours): Oxygen Delivery Method Room Air Oxygen Flow Rate 0 Narrative Exam Narrative: NAD, alert and oriented. Fluent speech. Lungs are clear, normal rate and effort. Heart is regular, no murmur gallop or rub. Abdomen is soft, non distended. Extremities are free of edema. Right knee is wrapped, there is some edema [id number]. Objective Labs 10/13/24 11:10 10/12/24 05:28 [facility] Medical History Cardiomyopathy DVT (deep venous thrombosis) History of left heart catheterization (12/2019) Atrial fibrillation Paroxysmal A-fib RBBB LAFB (left anterior fascicular block) First degree AV block History of transcatheter aortic valve replacement (TAVR) (08/01/18) Sleep apnea CAD (coronary artery disease) Stress incontinence Enlarged lymph node Chronic anticoagulation Androgen deprivation therapy Stress incontinence, male History of radiation therapy Hydronephrosis, right Prostate cancer Osteoarthritis Hypertension Gout Depression History of prostate cancer Arthritis GERD (gastroesophageal reflux disease) Diabetes Congestive heart failure Pacemaker Surgical History H/O insertion of nephrostomy tube AICD (automatic cardioverter/defibrillator) present (12/30/20) Hx of heart artery stent History of back surgery H/O aortic valve replacement Family History Mother Coronary artery disease involving bypass graft of transplanted heart Cancer Hypertension Social History marital status: number of children: 3 household members: none Previous occupational history: retired Smoking Status: Former smoker alcohol intake: former caffeine: Yes Assessment & Plan Assessment & Plan narrative: 1. Ruled out septic right knee, present on admission and active. 2. Gout, present on admission and active. 3. AVR, on chronic warfarin. Present on admission and stable. 4. Possible heart failure of on known cardiac function, present on admission and stable. Plan: -discussed with orthopedics, we will DC IV antibiotics and arrange her return back to his assisted living. ANY is October 13, he is from [facility]. Time-Based Coding :: [TOTAL MINUTES] spent with patient and on the chart (including review of chart, obtaining history, exam, reviewing outside data, placing orders, documenting exam and treatment plan, and counseling patient) on [DATE]. Quality VTE Deep Vein Thrombosis/Pulmonary Embolism Present on Admission: No
[2024-10-13 08:00] VITALS: BP 115/49; PULSE 61; RESP 16; TEMP 36.1; O2SAT 98
--- NOTE | 2024-10-13 08:16 | PM.PNPO.1 ---
Subjective Subjective Date Patient Seen: 10/13/24 Time Patient Seen: 08:16 Interval history: Patient's pain is controlled with oral medication. ?Pain is localized to surgical site. ?Patient decreased sensation of right lower extremity. Patient does have a history of neuropathy. ?Patient denies any shortness of breath, dizziness, light-headedness, nausea, vomiting, fever or chills. Has difficulty transitioning from sitting to standing. Exam Vital Signs (past 8 hours): Oxygen Delivery Method Room Air Oxygen Flow Rate 0 Narrative Exam Narrative: 5/5 strength in hip flexors, quadriceps, hamstrings, DF, PF, EHL bilaterally. Sensation to light touch intact throughout BLE. Calves soft, compressible, nontender. 2+ pitting edema of right lower extremity. Dressing placed intraoperatively CDI. Objective Labs 10/12/24 05:28 10/12/24 05:28 [facility] Medical History Cardiomyopathy DVT (deep venous thrombosis) History of left heart catheterization (12/2019) Atrial fibrillation Paroxysmal A-fib RBBB LAFB (left anterior fascicular block) First degree AV block History of transcatheter aortic valve replacement (TAVR) (08/01/18) Sleep apnea CAD (coronary artery disease) Stress incontinence Enlarged lymph node Chronic anticoagulation Androgen deprivation therapy Stress incontinence, male History of radiation therapy Hydronephrosis, right Prostate cancer Osteoarthritis Hypertension Gout Depression History of prostate cancer Arthritis GERD (gastroesophageal reflux disease) Diabetes Congestive heart failure Pacemaker Surgical History H/O insertion of nephrostomy tube AICD (automatic cardioverter/defibrillator) present (12/30/20) Hx of heart artery stent History of back surgery H/O aortic valve replacement Family History Mother Coronary artery disease involving bypass graft of transplanted heart Cancer Hypertension Social History marital status: number of children: 3 household members: none Previous occupational history: retired Smoking Status: Former smoker alcohol intake: former caffeine: Yes Assessment & Plan Post-op Postoperative Procedures: Procedures Operation Date: 10/11/24 12:15 Actual Procedure Side Surgeon p Irrigation debridement arthroscopic right knee Right Roselyn Christian MD Postoperative day: 2 Postoperative status: doing well Postoperative plan: routine post-op care and ambulate Postoperative plan narrative: Culture still pending but currently no growth. Likely inflammatory process. CRP ordered. Repeat H and H as patient is trending hypotensive Awaiting growth from cultures taken during the procedure. If positive for growth while establish IV antibiotics with an Infectious Disease. There is no growth treat as gout consider outpatient intra-articular corticosteroid injection as patient can not take oral anti-inflammatories due to chronic anticoagulation. Ambulate and weight bear as tolerated with assistive devices. PT currently recommending SNF. Needs to stay one more midnight before transfering to SNF. Pt prefers [facility]. Warfarin for DVT prevention Baseline pain relief with acetaminophen 650mg every 6 hours as needed for pain. Patient has been prescribed oxycodone 5 mg every 4 hours as needed for breakthrough pain. Keep dressing clean and dry. Keep dressing on until first office visit. If dressing becomes dirty or disrupted, replace with appropriate sized dressing. Follow up in clinic in 2 weeks for wound check. Contact clinic if there are any questions or concerns. Time Spent With Patient Time with patient: 15-24 minutes Quality VTE Deep Vein Thrombosis/Pulmonary Embolism Present on Admission: No
[2024-10-13] MEDS: PANTOPRAZOLE DR 40 MG TABLET PO (08:44)
[2024-10-13] MEDS: GABAPENTIN 300 MG CAPSULE 600 MG PO (08:44)
[2024-10-13] MEDS: ROPINIROLE 1 MG TABLET 2 MG PO (08:44)
[2024-10-13] MEDS: DOCUSATE 100 MG CAPSULE PO (08:44)
[2024-10-13] MEDS: allopurinoL 100 MG TABLET 200 MG PO (08:44)
[2024-10-13] MEDS: SERTRALINE 50 MG TABLET PO (08:44)
[2024-10-13] MEDS: FERROUS SULFATE 325 MG TABLET PO (08:44)
[2024-10-13] MEDS: OXYBUTYNIN 5 MG ER TAB 10 MG PO (08:44)
[2024-10-13] MEDS: POTASSIUM CHLORIDE 10 MEQ TAB PO (08:44)
[2024-10-13] MEDS: SPIRONOLACTONE 25 MG TABLET PO (08:44)
[2024-10-13 08:47] VITALS: BP 115/45; PULSE 72
[2024-10-13] MEDS: NYSTATIN POWDER 15GM 1 APPLIC TOP (09:04)
[2024-10-13] MEDS: BICALUTAMIDE 50 MG TABLET PO (09:04)
[2024-10-13] MEDS: polyethylene glycoL 3350 17 GM POWD.PACK PO (09:05)
--- NOTE | 2024-10-13 09:10 | PC.NURSE ---
Addendum entered by Olga Crockett R.N. 10/13/24 17:25: 1725 Patient off floor via wheelchair. Belongings in possession. Discharge instructions provided and signed by patient. Patient verbalized understanding. Patient with no complaints at this time. Original Note: 0910 aware of patient BP 115/45. Per okay to administer metoprolol and lisinopril at this time.
[2024-10-13 09:12] VITALS: BP 115/45; PULSE 72
[2024-10-13] MEDS: METOPROLOL ER 25 MG TABLET 12.5 MG PO (09:12)
[2024-10-13] MEDS: lisinopriL 5 MG TABLET 2.5 MG PO (09:12)
[2024-10-13 09:42] VITALS: BP 100/54; PULSE 65
[2024-10-13 11:20] LABS: Hemoglobin 8.1 g/dL (13.5-17.5)
--- NOTE | 2024-10-13 11:25 | PT.IPTN ---
Current Diagnoses Pyogenic arthritis, unspecified (10/11/24) Effusion, unspecified knee (10/11/24) Pain in right knee (10/11/24) Surgery Performed Operation Date: 10/11/24 12:15 Actual Procedures p Irrigation debridement arthroscopic right knee(Right) - Roselyn Christian MD Physical Therapy Treatment Note M2 PT-IP Current Condition Start: 10/12/24 12:54 Freq: NEEDED Status: Active Protocol: Document 10/12/24 12:52 DLM (Rec: 10/12/24 13:24 DLM Desktop) Physical Therapy Current Condition Current Condition Evaluation Date 10/12/24 Treatment Diagnosis Septic right knee s/p I&D, impaired gait Onset Date 10/11/24 M3 PT-IP Subjective Start: 10/12/24 12:54 Freq: NEEDED Status: Active Protocol: Document 10/13/24 11:25 AB (Rec: 10/13/24 13:44 AB [id number]) Subjective Physical Therapy Visit Type Type Treatment Note Visit Start Time 11:25 Visit Stop Time 11:50 Number of WAITER/WAITRESS FORMAL Visits 0 Physical Therapy Visit Comments Patient Comments agreeable to do PT Therapy Pain Assessment Pain When Pain Assessed At Rest Pain Present Pain Present Pain Reported Location right knee Intensity 5 Scale Used Numeric (0 - 10) Pain Management Techniques Distraction,Modification of Treatment,Re-positioning, Timing of Activity with Medications M4 PT-IP Mobility and Gait Start: 10/12/24 12:54 Freq: NEEDED Status: Active Protocol: Document 10/13/24 11:25 AB (Rec: 10/13/24 13:44 AB [id number]) PT-Transfer Assessment Sit to and From Stand Sit to and from Stand Moderate Assistance,Maximum Assistance,1 Person Assistance ,Use of Upper Extremities Equipment Transfer Assistive Device Gait Belt,Front Wheeled Walker Orthotic/Prosthetic Devices or Brace: No Comments Mobility Comments pt sitting on the chair and agreeable to do PT. pt requesting to use the toilet first. sit to stand from the chair mod to max A and max cues and ambulated to the toilet using fWW CGA. Assisted pt with brief management. sit to stand from the toilet using grab bar mod A and cues. pt ambulated in the room using FWW ~ 30 ft CGA and cues. pt sat back on the chair and rested. agreed to walk again . sit to stand from the chair mod A and ambulated ~ 25 ft using FWW CGA to min A towards end of ambulation. c/o feeling that R knee is going to give out and c/o increase knee pain. positioned pt on the chair. call light and table placed within reach. Gait Assessment Gait Gait Assistance Required: Contact Guard Assist,Minimum Assistance,1 Person Assist Distance (Feet) 30 Able to Maintain Weight Bearing Status Yes During Gait Assistive Devices Assistive Device Gait Belt,Front Wheeled Walker Orthotic/Prosthetic Devices or Brace: No Gait Deviations General Gait Pattern Antalgic,Decreased Stride Length,Decreased Feet Clearance Factors Limiting Gait Function Factors Limiting Gait Function Decreased Activity Tolerance, Decreased Strength,Limited Range of Motion,Pain,Poor Balance,Poor Safety Awareness M5 PT-IP Objective Assessments Start: 10/12/24 12:54 Freq: NEEDED Status: Active Protocol: Document 10/12/24 12:52 DLM (Rec: 10/12/24 13:24 DLM Desktop) Orientation Orientation/Cognition Level of Alertness Alert Orientation Name,Age,Birthday,Month,Date, Year,Day of Week,Place, Situation Language Function Ability No Deficits Noted Safety Awareness Understands Safety Issues Memory Description No Deficits Noted Comments wearing glasses Gross Range of Motion Upper Extremity ROM Assessment Within Functional Limits Lower Extremity ROM Assessment Right Impaired Impairments right knee pain and swelling, active ROM 20-85 degrees Strength Upper Extremity Strength Assessment Within Functional Limits Lower Extremity Strength Hip flexion 3+/5 Knee extension 3+/5, flexion 3+/5 Ankle DF 4/5 Comments Strength Comments pain limiting right LE strength Coordination Assessment Gross Coordination Gross Coordination WNL Sensation Assessment Sensation Gross Sensation Right LE Impaired,Left LE Impaired Sensation Description Numbness Comments Sensation Comments hx neuropathy in bilateral feet Muscle Tone Muscle Tone WNL Yes M6 PT-IP Treatment Start: 10/12/24 12:54 Freq: NEEDED Status: Active Protocol: Document 10/13/24 11:25 AB (Rec: 10/13/24 13:44 AB [id number]) Physical Therapy Treatment Education Education Provided Safety M7 PT-IP Assessment and Plan Start: 10/12/24 12:54 Freq: NEEDED Status: Active Protocol: Document 10/13/24 11:25 AB (Rec: 10/13/24 13:44 AB [id number]) PT Summary Assessment and Plan Potential Rehabilitation Potential Fair Summary Impairments Pain,ROM,Strength,Balance, Coordination,Sensation,Bed Mobility,Transfers,Gait, Activity Tolerance Progress Towards Goals Slow Progress due to Pain,Slow Progress due to Medical Issues,Slow Progress due to Activity Tolerance Assessment Summary pt improving with mobility using FWW and able to walk ~ 30 ft today CGA to min A. pt continues to have decrease activity tolerance affecting mobility level. pt 's d/c plan pending culture and may require IV antibiotic. pt plans to go back to [facility] with HHPT but if needing antibiotic, may need to go to SNF. Goals Bed Mobility Goal Independent Transfer Goal Independent,Front Wheeled Walker,Four Wheeled Walker Gait Goal Standby Assistance,Front Wheel Walker,Four Wheel Walker Gait Distance 50 feet Days to Meet Goals 5 Frequency of Treatment Frequency Of Treatment Once a Day Treatment Plan Physical Therapy Treatment Plan Bed Mobility Training,Transfer Training,Gait Training, Therapeutic Exercise,Balance Retraining,Discharge Planning, Hot or Cold Pack,Neuromuscular Re-ed Precautions Other Precautions right nephrostomy tube Weight Bearing Status Weight Bearing Status Weight Bear as Tolerated Allowed Weight Bearing Amount (enter % right knee or #) (%) Recommendations To Nursing Amount of Assist Needed 1 Person Assist Discharge Recommendations PT Discharge Recommendations Home with Assistance,Home Health,SNF Rehab,Home vs SNF Transportation Needs at Discharge Private Vehicle,Wheelchair/ Cabulance - PT assist 1
[2024-10-13 11:35] LABS: C-Reactive Protein Quant 5.8 mg/dL (<1.0)
[2024-10-13] MEDS: ACETAMINOPHEN 325 MG TABLET 650 MG PO ×2 (12:06→16:46)
[2024-10-13] MEDS: INSULIN LISPRO 100 UNIT/ML 3ML VIAL SUBCUT (12:52)
--- NOTE | 2024-10-13 12:58 | CM.DPNOTE ---
Addendum entered by JAYLEN Quiroga 10/13/24 14:53: 1445: Per Hospitalist, pt cleared to discharge back to [facility] on no new abx medications. DCP called [facility], left a voice message for managed care coordinator. DCP calls [facility] RN station, relayed message that pt can discharge back to facility this evening. No transport available, per Ivory RN. DCP faxed discharge summary to [facility] fax: [phone]. RN-RN Report#: [phone] (ASAD Cavanaugh) OR [phone] ext. [phone] DCP to coordinate taxi voucher via [employer]. Per Coordinator RN, pt is comfortable with taxi van transport. DCP notified Hospitalist, Acute Care SENIOR LINUX ENGINEER and pt RN of transport time. ROB Jeffers Original Note: DCP Continued: Reviewed EMR and team rounds for pt?s medical status. Per hospitalist and Ortho PA, cultures are still pending and will determine disposition plan. DCP discussed pt with [facility], it is reported pt was not officially referred yet - DCP sent referral for review. Will need authorization due to [facility] Managed Medicare insurance. Plan A: [facility] if requiring IV antibiotics, PT/OT also recommending SNF for continued physical rehab to get closer to baseline. Plan B: Return to [facility] with PO abx, home health referral would be beneficial. CM Team will continue to follow for coordination of discharge plans. ROB Jeffers
--- NOTE | 2024-10-13 13:47 | OT.IPNOTE ---
Check on pt for OT and pt states just wanting to sleep.
[2024-10-13 14:57] LABS: INR 1.4 (0.9-1.3); Prothrombin Time 16.1 SECONDS (9.4-12.5)
--- NOTE | 2024-10-13 15:12 | P.DS_ITS ---
History of Present Illness History of Present Illness Chief complaint: Right Arthroscopy Knee Narrative: From H&P: The patient was a 74-year-old male with history of gout, AVR, chronic warfarin, CHF, pacemaker, and a month long history of right knee pain and swelling. The patient had an aspiration previously in the walk-in clinic which revealed Gram-positive cocci but ultimately had no growth. There was also 1 blood culture in the last several weeks which had 1 out of put to cultures positive for GPC. The patient was seen by Dr. Odom with persistent swelling and pain of the knee and taken to the OR for washout today. Cultures were obtained. The patient also has a history of gout with tophaceous changes to the right greater than left foot. He denies recent issues other than knee swelling and pain. No fevers, or chills. The operation was unremarkable and went without any complications. Patient lives in [facility] which is in [place]. Knee fluid: 10/11/24 12:45Fluid Color RedFluid Appearance CloudyFluid RBC [id number] Tot Nucleated Cell 1178Fluid Neutrophils % 86Fluid Lymphocytes % 3Fluid Meso/Macro/[place] % 11Fluid Crystals None presentBody Fluid Clot No clots present Discharge Providers Provider Date of admission: 10/11/24 10:59 Discharge Date: 10/13/24 Primary care physician: YAN Marcial Consults: 10/09/24 13:12 Consult to Anesthesiology Routine Comment: Consulting Provider: Anesthesiologist Reason for consultation: Surgeon requested re: Multiple Medical 10/11/24 14:36 Consult to Discharge Planning Routine Comment: Consult to Hospitalist Service Routine Comment: Consulting Provider: Grant Ramírez Reason for consultation: Multiple medical problems Has provider been notified: Yes Consult to Occupational Therapy Evaluate & Treat Comment: Physician Instructions: Evaluate and treat Consult to Physical Therapy Evaluate & Treat Comment: Physician Instructions: Evaluate and Treat Discharge provider: Grant Ramírez MD Summary Hospital Course Discharge Diagnosis: 1. Ruled out septic right knee, present on admission and active. 2. Gout, present on admission and active. 3. AVR, on chronic warfarin. Present on admission and stable. 4. Possible heart failure of on known cardiac function, present on admission and stable. Hospital Course: The patient underwent knee arthroscopy to rule out septic arthritis. He was treated perioperatively in postprocedure with Ancef IV. Ultimately cultures remained negative. The case was discussed with Orthopedics on day of discharge and they recommended discharge home without any antibiotics and a 2 week follow up. The patient's facility, [facility], was able to receive him back. Status at Discharge Cognitive/behavioral status at discharge: oriented Functional status at discharge: uses cane/walker Overall status at discharge: patient is back to baseline Time Spent with Patient Time spent: Greater than 30 minutes Exam Vital Signs (past 8 hours): - 10/13/24 08:00 10/13/24 08:47 10/13/24 09:12 Temperature 97 F L Pulse Rate 61 72 72 Respiratory Rate 16 Blood Pressure 115/49 L 115/45 L 115/45 L Pulse Oximetry 98 Oxygen Flow Rate 0 10/13/24 09:12 10/13/24 09:42 Temperature Pulse Rate 72 65 Respiratory Rate Blood Pressure 115/45 L 100/54 L Pulse Oximetry Oxygen Flow Rate Oxygen Delivery Method Room Air Oxygen Flow Rate 0 Narrative Exam Narrative: NAD, alert and oriented. Fluent speech. Lungs are clear, normal rate and effort. Heart is regular, no murmur gallop or rub. Abdomen is soft, non distended. Extremities are free of edema. Right knee is wrapped. There is some leg edema below the wrapping. Objective Labs 10/13/24 11:10 10/12/24 05:28 Labs: Laboratory Results - last 24 hr 10/13/24 10/13/24 11:10 14:32 Hgb 8.1 L Hct 24.0 L PT 16.1 H INR 1.4 H C-Reactive Protein 5.8 H [facility] Medical History Cardiomyopathy DVT (deep venous thrombosis) History of left heart catheterization (12/2019) Atrial fibrillation Paroxysmal A-fib RBBB LAFB (left anterior fascicular block) First degree AV block History of transcatheter aortic valve replacement (TAVR) (08/01/18) Sleep apnea CAD (coronary artery disease) Stress incontinence Enlarged lymph node Chronic anticoagulation Androgen deprivation therapy Stress incontinence, male History of radiation therapy Hydronephrosis, right Prostate cancer Osteoarthritis Hypertension Gout Depression History of prostate cancer Arthritis GERD (gastroesophageal reflux disease) Diabetes Congestive heart failure Pacemaker Surgical History H/O insertion of nephrostomy tube AICD (automatic cardioverter/defibrillator) present (12/30/20) Hx of heart artery stent History of back surgery H/O aortic valve replacement Family History Mother Coronary artery disease involving bypass graft of transplanted heart Cancer Hypertension Social History marital status: number of children: 3 household members: none Previous occupational history: retired Smoking Status: Former smoker alcohol intake: former caffeine: Yes Discharge Assessment & Plan Assessment and Plan Assessment: 1. Ruled out septic right knee, present on admission and active. Plan of Treatment: Discharge back to [facility] living, follow up with Orthopedics in 2 weeks. Discharge Plan Discharge Plan Patient Disposition: Assisted Living Transfer to: [facility] Provider Discharge Comment: Discussed with orthopedics, cultures remained negative. They recommended discharge without antibiotics and a 2 week follow up with Orthopedics. Dr. Clancy. Discharge orders & Medications Discharge Orders: Discharge (Order); Ordered 10/13/24 Ordered By: Grant Ramírez Prescriptions: Continued acetaminophen 325 mg Tablet 650 mg PO Q4H PRN (Reason: pain) atorvastatin 40 mg Tablet 60 mg PO BEDTIME Antacid (calcium carbonate) 215 mg calcium (500 mg) Tablet,Chewable 500 mg DAILY Rx Instructions: AM furosemide 40 mg Tablet 40 mg PO BID ferrous sulfate 325 mg (65 mg iron) Tablet 325 mg PO DAILY metoprolol succinate 25 mg Tablet Extended Release 24 Hr 12.5 mg PO DAILY Rx Instructions: Hold for SBP < 100, HR < 60 lisinopril 2.5 mg Tablet 2.5 mg PO DAILY pantoprazole [Protonix] 40 mg Tablet,Delayed Release (Dr/Ec) 40 mg PO DAILY ropinirole 1 mg Tablet 2 mg PO BID tolterodine [Detrol LA] 4 mg Capsule,Extended Release 24hr 4 mg PO DAILY sertraline [Zoloft] 50 mg Tablet 50 mg PO DAILY insulin lispro 100 unit/mL Cartridge 2 sliding scale dose SUBCUT USEASDIRECTD Patient Comments: No coverage if CBG less than 150 spironolactone 25 mg tablet 25 mg PO BID bicalutamide 50 mg tablet 50 mg PO DAILY Rx Instructions: Prostate CA ondansetron 4 mg tablet,disintegrating 8 mg PO Q6H PRN (Reason: Nausea) warfarin 6 mg Tablet 6 mg PO 6XW Qty: 0 Patient Comments: 6mg M,T,W,TH,FR,SA - 6.5mg on Sundays hydrocodone-acetaminophen 5-325 mg tablet 2 tab PO Q6H PRN (Reason: pain) Qty: 30 0RF insulin glargine 100 unit/mL Solution 13 unit SUBCUT BEDTIME potassium chloride 10 mEq Tablet Extended Release 10 meq PO DAILY allopurinol 100 mg Tablet 200 mg PO DAILY pramipexole 0.5 mg Tablet 0.5 mg PO BEDTIME warfarin 6 mg Tablet 6 mg PO SEEINSTR Patient Comments: 6.5mg on Wednesday, 6mg rest dextroamphetamine-amphetamine [Adderall XR] 10 mg Capsule,Extended Release 24hr 10 mg PO QAM gabapentin 100 mg Tablet 1,000 mg PO BEDTIME gabapentin 100 mg Tablet 500 mg PO QAM pregabalin 150 mg Capsule 150 mg PO BEDTIME gabapentin 300 mg Tablet Extended Release 24 Hr 300 mg PO DAILY Xtampza ER 9 mg Cap,Sprinkl,Er12hr(Dont Crush) 9 mg PO Q12H Rx Instructions: must administer with a meal/food Xtandi 40 mg Tablet 160 mg PO QAM Follow up/Referrals: Roselyn Christian MD [Physician] - Lizbeth Schaefer ARNP [Primary Care Provider] - Discharge Health Status Multidrug resistant organism: No MDRO Diet/Activity/Treatments Diet: Carb-consistent/Diabetic Liquid consistency: Normal/Thin Food texture: Regular Activity: As tolerated, WBAT. Visit Report/Discharge Packet Instructions: DI for Knee Arthroscopy Stand Alone Forms: Patient Portal/API, Surgery Discharge Discharge Data Primary Care Provider: Lizbeth Schaefer Quality VTE Deep Vein Thrombosis/Pulmonary Embolism Present on Admission: No
[2024-10-13] MEDS: GABAPENTIN 300 MG CAPSULE PO ×2 (16:44→16:46)
[2024-10-13] MEDS: WARFARIN 1 MG, WARFARIN 5 MG 6 MG PO (16:46)
[2024-10-13 17:00] VITALS: BP 106/78; PULSE 68; RESP 16; TEMP 36.4; O2SAT 97
== END 2024-10-13 17:35 | DRG 486 ==
PROVIDERS: Hospitalist; Physician Assistant; Admitting Provider Orthopaedic Surgery Foot and Ankle Surgery; PCP Nurse Practitioner Family; Referring Provider Orthopaedic Surgery Foot and Ankle Surgery; Visit Provider Orthopaedic Surgery Foot and Ankle Surgery
PROC: 0SBC4ZZ Excision of Right Knee Joint, Percutaneous Endoscopic Approach (ICD-10-PCS; CPT 29870; principal; 2024-10-11 12:15)
DX: M00.9 Pyogenic arthritis, unspecified (principal); I42.9 Cardiomyopathy, unspecified; I45.2 Bifascicular block; N18.9 Chronic kidney disease, unspecified; I50.9 Heart failure, unspecified; Z79.01 Long term (current) use of anticoagulants; Z95.2 Presence of prosthetic heart valve; M1A.9XX1 Chronic gout, unspecified, with tophus (tophi); Z95.810 Presence of automatic (implantable) cardiac defibrillator; Z95.5 Presence of coronary angioplasty implant and graft; Z82.49 Family history of ischemic heart disease and other diseases of the circulatory system; Z86.718 Personal history of other venous thrombosis and embolism; Z92.3 Personal history of irradiation; Z85.46 Personal history of malignant neoplasm of prostate; I25.10 Atherosclerotic heart disease of native coronary artery without angina pectoris; I48.0 Paroxysmal atrial fibrillation; Z87.891 Personal history of nicotine dependence; K21.9 Gastro-esophageal reflux disease without esophagitis; F32.A Depression, unspecified; Z79.4 Long term (current) use of insulin; E11.9 Type 2 diabetes mellitus without complications; N39.3 Stress incontinence (female) (male); I11.0 Hypertensive heart disease with heart failure
CPT/HCPCS: 36415; 80048; 82962; 83036; 83735; 85014; 85018; 85025; 85610; 86140; 87070; 87075; 87205; 87801; 89051; 89060; 97116; 97162; 97166; 97530; 97535; J0690; J1171; J1815; J2405; J2704; J3010; J3410

== ENCOUNTER → 2024-10-18 16:33 | Outpatient (ROUT) | payer MEDICARE, MEDICAID, SELFPAY ==
[2024-10-11 14:24] VITALS: BMI 35.8
[2024-10-18 17:03] LABS: INR 2.2 (0.9-1.3); Prothrombin Time 24.8 SECONDS (9.4-12.5)
== END ==
PROVIDERS: PCP Nurse Practitioner Family; Visit Provider Internal Medicine
DX: I48.91 Unspecified atrial fibrillation (principal)
CPT/HCPCS: 85610

== ENCOUNTER → 2024-10-25 06:08 | Outpatient (ROUT) | payer MEDICARE, MEDICAID, SELFPAY ==
[2024-10-11 14:24] VITALS: BMI 35.8
[2024-10-25 07:56] LABS: Prothrombin Time 22.8 SECONDS (9.4-12.5)
== END ==
LOC: LAB 06:08
PROVIDERS: Registered Nurse; PCP Nurse Practitioner Family
DX: I48.91 Unspecified atrial fibrillation (principal)
CPT/HCPCS: 36415; 85610

== ENCOUNTER 2024-11-02 16:48 | Emergency (ER) | payer MEDICARE, MEDICAID, SELFPAY ==
[2024-10-11 14:24] VITALS: BMI 35.8
[2024-11-02] VITALS (15 sets, daily range): BP systolic 107–136; BP diastolic 55–65; PULSE 63–83; RESP 16–18; TEMP 36.7; O2SAT 91–100; BMI 34.2
--- NOTE | 2024-11-02 18:26 | DI.US.S_ITS ---
PROCEDURE: [facility] LOW EXTREM RT INDICATIONS: swelling TECHNIQUE: Real-time imaging, as well as color and pulse Doppler interrogation, were performed of the lower extremity deep veins from the inguinal ligament to the popliteal fossa, with documentation of the visualized calf veins. COMPARISON: [facility], , [facility], 03/26/2022, 17:01. FINDINGS: The common femoral, femoral, popliteal, and the visualized calf veins are normally compressible, and free of intraluminal thrombus. Color and pulse Doppler demonstrate normal phasic intraluminal flow. There is normal augmentation response to distal compression maneuver. Limited evaluation of the calf veins secondary to edema. IMPRESSION: No findings of lower extremity deep venous thrombosis. Dictated by: Donta Adame M.D. on 11/02/2024 at 19:42 Approved by: Donta Adame M.D. on 11/02/2024 at 19:43
[2024-11-02 18:33] LABS: Appearance Urine UA CLEAR; Bilirubin Urine UA NEGATIVE (NEGATIVE); Color Urine UA YELLOW; Glucose Urine UA NEGATIVE (Negative); Ketones Urine UA NEGATIVE (NEGATIVE); Leukocyte Esterase Urine UA NEGATIVE (NEGATIVE); Nitrite Urine UA NEGATIVE (Negative); Occult Blood Urine UA NEGATIVE (Negative); Protein Urine UA NEGATIVE (Negative); Urobilinogen Urine UA 0.2 E.U./dL (0.2); pH Urine UA 5.5 (4.5-8.0)
[2024-11-02 18:35] LABS: Urine Volume 10mL (spun)
[2024-11-02 18:36] LABS: Amorphous Sediment Urine 2+; Bacteria Urine Moderate (10-30); RBC Urine 10-30/HPF (0-5/HPF); Squamous Epithelial Cell Urine 0-1 /HPF (0-5/HPF); WBC Urine 5-10/HPF (0-5/HPF)
[2024-11-02 18:41] LABS: Amorphous Sediment Urine 1+; Bacteria Urine None Seen; Culture Indicated Urine Cult Not Indicated; RBC Urine None Seen (0-5/HPF); Squamous Epithelial Cell Urine None Seen (0-5/HPF); Urine Volume 10mL (spun); WBC Urine None Seen (0-5/HPF)
--- NOTE | 2024-11-02 18:52 | DI.CT.S_ITS ---
PROCEDURE: CT KIDNEY URETER BLADDER (KUB) INDICATIONS: nephrostomy tube placement evaluation TECHNIQUE: Axial sections were acquired from the lung bases to the pubic symphysis. Coronal and sagittal reformats were performed. For radiation dose reduction, the following was used: automated exposure control, adjustment of mA and/or kV according to patient size. COMPARISON: [facility], CT, CT ABDOMEN PELVIS WO CON, 09/04/2024, 0:52. [facility], CT, CT ABDOMEN PELVIS WO CON, 07/10/2024, 0:03. [facility], CT, CT ABDOMEN PELVIS WITH CONTRAST, 03/17/2024, 9:22. [facility], CT, CT KIDNEY URETER BLADDER (KUB), 10/29/2022, 9:07. FINDINGS: Image quality: Diagnostic. Lower Chest: Pacemaker leads and prosthetic heart valve are again seen. No pericardial effusion. Small hiatal hernia. Bilateral lung bases are clear. URINARY: Right Kidney: Percutaneous nephrostomy tube is seen in right kidney. No right-sided hydronephrosis. Mild right perinephric fat stranding is seen. Right Ureter: No hydroureter. Left Kidney: No stones or hydronephrosis. Left Ureter: No hydroureter. Bladder: Normal wall thickness. No stones. ABDOMEN: Liver: No contour-deforming solid mass. Gallbladder: No radiopaque gallstones or wall thickening. Biliary ducts: No biliary dilation. Pancreas: No ductal dilation. Spleen: Size is within normal limits. Adrenal Glands: No adrenal nodules. Stomach and Bowel: There is no bowel obstruction. No abnormal bowel wall thickening or mesenteric fat stranding. Colonic diverticulosis without CT evidence of acute diverticulitis. No abscess collection. Peritoneum: No abnormal intraperitoneal fluid. No free air. Ventral Wall: No hernia. Abdominal Nodes: Previously described right pelvic side wall lymphadenopathy extending to involve right psoas muscle has enlarged in size now measures up to 6.4 x 6.5 cm in size compared to 6.4 x 5.5 cm on previous study series 2, image 105 . Right lower pelvic eli mass adjacent to the urinary bladder and is dorsal to the right rectus abdominus muscle measures 2.9 x 2.8 cm is seen compared to 2.5 x 2.4 cm in size on previous study series 2, image 116. Previously described left periaortic lymph no is not significantly changed and measures 2.3 x 2 cm in size compared to 2.2 x 2 cm on previous study series 2, image 59. 5.8 x 3.7 cm lobulated eli mass anterior to the IVC series 2, image 62, previously 5.6 x 3.1 cm in size. Additional enlarged right periaortic lymph nodes are also seen measures up to 4 x 2.6 cm in size series 2, image 85 compared to 3.2 x 2.4 cm in size on previous study. Vessels: Aorta and inferior vena cava are normal in size. PELVIS: Pelvic Organs: Enlarged prostate gland is seen. Pelvic Nodes: Worsening lymphadenopathy along right iliac vessels is seen. Miscellaneous: No inguinal hernias are seen. Bones: No aggressive appearing bony lesions. IMPRESSION: 1. Presence of percutaneous right nephrostomy tube. No right-sided hydronephrosis or hydroureter. Nonspecific mild right perinephric fat stranding. No left-sided renal stones or hydronephrosis. No gross abnormality is seen in partially distended urinary bladder. 2. Interval significant worsening of peritoneal and retroperitoneal lymphadenopathy in periaortic space, right retroperitoneal space, right lower pelvic mesentery and along right iliac vessels as described above consistent with progression of metastatic lymphadenopathy. 3. No bowel obstruction or abnormal bowel wall thickening. No abscess collection. No free fluid or free air. Dictated by: Jacobo Soto M.D. on 11/02/2024 at 20:11 Approved by: Jacobo Soto M.D. on 11/02/2024 at 20:25
[2024-11-02] MEDS: ACETAMINOPHEN 325 MG TABLET 975 MG PO (19:55)
--- NOTE | 2024-11-02 21:52 | ED_ITS ---
HPI - Extremity Problem General Chief complaint: Extremity Problem,Nontraumatic Stated complaint: Right Knee Swelling Time Seen by Provider: 11/02/24 21:52 Source: patient and EMS Mode of arrival: EMS History of Present Illness HPI Narrative: 74-year-old male with a past medical history of diabetes, CHF, CAD with pacemaker, on warfarin, comes into the ED via EMS for evaluation of swelling pain to his right knee, states that he did have a previous knee surgery states that it was ?infected previous and required a washout, at evaluation patient is able to walk at his baseline with a walker, he also states that he has concerns that his chronic nephrostomy tube is either malpositioned or not draining appropriately due the fact that he feels like it is not having as much drainage. He denies any other symptoms at this time. Related Data Home Medications Medication Instructions Recorded Confirmed acetaminophen 325 mg tablet 650 mg PO Q4H PRN pain 06/13/22 10/10/24 atorvastatin 40 mg tablet 60 mg PO BEDTIME 06/13/22 10/11/24 calcium carbonate (Antacid 500 mg DAILY 06/13/22 10/10/24 (calcium carbonate)) ferrous sulfate 325 mg (65 mg 325 mg PO DAILY 06/13/22 10/11/24 iron) tablet furosemide 40 mg tablet 40 mg PO BID 06/13/22 10/11/24 insulin lispro 100 unit/mL 2 sliding scale dose SUBCUT 06/13/22 10/11/24 subcutaneous cartridge USEASDIRECTD lisinopril 2.5 mg tablet 2.5 mg PO DAILY 06/13/22 10/11/24 metoprolol succinate 25 mg 12.5 mg PO DAILY 06/13/22 10/11/24 tablet,extended release 24 hr pantoprazole 40 mg tablet,delayed 40 mg PO DAILY 06/13/22 10/11/24 release (Protonix) ropinirole 1 mg tablet 2 mg PO BID 06/13/22 10/11/24 sertraline 50 mg tablet (Zoloft) 50 mg PO DAILY 06/13/22 10/11/24 tolterodine 4 mg capsule,extended 4 mg PO DAILY 06/13/22 10/11/24 release 24 hr (Detrol LA) bicalutamide 50 mg tablet 50 mg PO DAILY 12/14/22 10/11/24 ondansetron 4 mg disintegrating 8 mg PO Q6H PRN Nausea 12/14/22 10/10/24 tablet spironolactone 25 mg tablet 25 mg PO BID 12/14/22 10/11/24 warfarin 6 mg tablet 6 mg PO 6XW ##0 11/22/23 10/10/24 allopurinol 100 mg tablet 200 mg PO DAILY 10/10/24 10/11/24 dextroamphetamine-amphetamine ER 10 mg PO QAM 10/10/24 10/11/24 10 mg 24hr capsule,extend release (Adderall XR) enzalutamide 40 mg tablet (Xtandi) 160 mg PO QAM Cancer treatment 10/10/24 10/11/24 gabapentin 100 mg tablet 1,000 mg PO BEDTIME 10/10/24 10/11/24 gabapentin 100 mg tablet 500 mg PO QAM 10/10/24 10/11/24 gabapentin 300 mg tablet,extended 300 mg PO DAILY 10/10/24 10/10/24 release 24 hr insulin glargine 100 unit/mL 13 unit SUBCUT BEDTIME 10/10/24 10/11/24 subcutaneous solution oxycodone myristate 9 mg capsule 9 mg PO Q12H Pain 10/10/24 10/11/24 sprinkle extended release 12 hr(DON'T CRUSH) (Xtampza ER) potassium chloride 10 mEq 10 meq PO DAILY 10/10/24 10/11/24 tablet,extended release pramipexole 0.5 mg tablet 0.5 mg PO BEDTIME 10/10/24 10/11/24 pregabalin 150 mg capsule 150 mg PO BEDTIME 10/10/24 10/11/24 warfarin 6 mg tablet 6 mg PO SEEINSTR 10/10/24 10/10/24 Previous Rx's Medication Instructions Recorded hydrocodone 5 mg-acetaminophen 325 2 tab PO Q6H PRN pain #30 tabs 08/16/23 mg tablet cefpodoxime 200 mg tablet 200 mg PO BID 2 weeks #28 tabs 11/02/24 Allergies Allergy/AdvReac Type Severity Reaction Status Date / Time crab Allergy Severe Deathly Verified 10/11/24 10:51 sick aspartame Allergy Unknown Verified 10/11/24 10:51 carbidopa Allergy Hallucinations, Verified 10/11/24 10:51 anxiety morphine AdvReac Nausea/vomi Verified 10/11/24 10:51 ting Review of Systems Review of Systems Narrative: General: Denies fever, chills, weight loss HEENT: Denies headache, eye drainage, eye irritation, head trauma, sore throat, voice change Cardiovascular: Denies any chest pain, palpitations, tachycardia Respiratory: Denies any shortness of breath, cough, wheeze, stridor GI/: Denies any abdominal pain, nausea, vomiting, diarrhea, bright red blood per rectum, melanotic stools, urinary frequency, urinary retention, dysuria, hematuria MSK: Positive right lower extremity swelling Skin: Denies any rashes, lesions, discoloration Neuro: Denies any headache, lightheadedness, dizziness, fainting, weakness Psych: Denies SI/HI Patient History Medical History Cardiomyopathy DVT (deep venous thrombosis) History of left heart catheterization (12/2019) Atrial fibrillation Paroxysmal A-fib RBBB LAFB (left anterior fascicular block) First degree AV block History of transcatheter aortic valve replacement (TAVR) (08/01/18) Sleep apnea CAD (coronary artery disease) Stress incontinence Enlarged lymph node Chronic anticoagulation Androgen deprivation therapy Stress incontinence, male History of radiation therapy Hydronephrosis, right Prostate cancer Osteoarthritis Hypertension Gout Depression History of prostate cancer Arthritis GERD (gastroesophageal reflux disease) Diabetes Congestive heart failure Pacemaker Surgical History H/O insertion of nephrostomy tube AICD (automatic cardioverter/defibrillator) present (12/30/20) Hx of heart artery stent History of back surgery H/O aortic valve replacement Family History Mother Coronary artery disease involving bypass graft of transplanted heart Cancer Hypertension Social History marital status: number of children: 3 household members: none Previous occupational history: retired alcohol intake: former caffeine: Yes tobacco type: cigarettes alcohol intake frequency: 0-2 drinks per day Exam Narrative Exam Narrative: General: Cooperative, well-developed, not in acute distress HEENT: Normocephalic, atraumatic, PERRLA, normal sclera, eyelids normal Neck: Active full range of motion, atraumatic Chest: Normal to inspection, negative crepitus, no overlying erythema ecchymosis Respiratory: Right-sided flank with nephrostomy tube in place, draining appropriate colored urine, no surrounding erythema purulent discharge or tenderness to palpation, Normal respiratory effort, not in acute respiratory distress, clear to auscultation bilaterally negative cough, wheeze, tachypnea, rhonchi, rales Cardiology: Regular rate rhythm negative gallop, murmur, rubs GI/: No tenderness to palpation, soft, non rigid, normal to inspection, exam deferred MSK: Right lower extremity with +1 pitting edema, neurovascularly intact, there is no overlying erythema ecchymosis gross deformity no micro motion tenderness to the right knee, there overlying well-healing scars consistent with the recent surgery, Skin: No rashes or lesions noted Neuro: Alert awake oriented x3, moves all 4 extremities spontaneously, cranial nerves intact, able to answer all questions appropriately follows commands appropriately Psych: Cooperative, negative suicidal or homicidal ideations Initial Vital Signs Initial Vital Signs: Vital Signs Pulse Rate 80 11/02/24 17:01 Pulse Oximetry 98 11/02/24 17:01 Course Orders Ordered: ED Orders 11/02/24 18:15 Urine Culture Stat Urine Microscopic Stat 11/02/24 18:23 Urinalysis and Microscopic Stat 11/02/24 18:26 US periph venous low extrem rt Stat 11/02/24 18:52 CT kidney ureter bladder (KUB) Stat 11/02/24 22:19 CBC Auto Diff [Complete Blood Count AUTO DIFF] Stat CMP [Comprehensive Metabolic Panel] Stat Discontinued Medications Acetaminophen (Acetaminophen 325 Mg Tablet) 975 mg PO NOW ONE Stop: 11/02/24 19:53 Last Admin: 11/02/24 19:55 Dose: 975 mg Documented By: JOEY Ceftriaxone Sodium 1,000 mg/ (Sodium Chloride) 100 mls @ 200 mls/hr IV NOW ONE Stop: 11/02/24 22:05 Last Admin: 11/02/24 22:24 Dose: 200 mls/hr Documented By: JOEY Vital Signs Vital signs: Vital Signs - 8 hr 11/02/24 17:01 11/02/24 17:09 11/02/24 17:30 Temperature 98.0 F Pulse Rate 80 83 70 Respiratory Rate 16 Blood Pressure 136/65 Pulse Oximetry 98 100 95 Oxygen Delivery Method Room Air 11/02/24 17:30 11/02/24 18:00 11/02/24 18:00 Temperature Pulse Rate 68 Respiratory Rate Blood Pressure 110/59 L 113/57 L Pulse Oximetry 96 Oxygen Delivery Method 11/02/24 18:30 11/02/24 18:30 11/02/24 19:00 Temperature Pulse Rate 71 67 Respiratory Rate Blood Pressure 107/62 Pulse Oximetry 98 98 Oxygen Delivery Method 11/02/24 19:00 11/02/24 19:30 11/02/24 19:30 Temperature Pulse Rate 81 Respiratory Rate Blood Pressure 116/58 L 116/55 L Pulse Oximetry 99 Oxygen Delivery Method 11/02/24 20:05 11/02/24 20:30 11/02/24 21:00 Temperature Pulse Rate 72 65 63 Respiratory Rate Blood Pressure Pulse Oximetry 99 96 96 Oxygen Delivery Method 11/02/24 21:30 11/02/24 22:00 Temperature Pulse Rate 66 71 Respiratory Rate 18 Blood Pressure Pulse Oximetry 98 94 Oxygen Delivery Method MDM - Extremity (Nontraumatic) Differential Diagnosis Differential diagnosis: Likely other (DVT, cellulitis, pyelonephritis, electrolyte abnormality) Lab Data 11/02/24 22:19 11/02/24 22:19 Labs: Lab Results 11/02/24 11/02/24 11/02/24 Range/Units 18:15 18:23 22:19 WBC 9.1 (4.5-11.0) X10^3/uL RBC 3.49 L (4.5-5.9) X10^6/uL Hgb 9.5 L (13.5-17.5) g/dL Hct 28.8 L (41-53) % MCV 82.6 (80-100) fL MCH 27.3 (26-34) PG MCHC 33.1 (30-36) % RDW 18.3 H (11.6-14.8) % Plt Count 206 (150-400) X10^3/uL Neut % (Auto) 77.1 H (50-75) % Lymph % (Auto) 13.7 L (25-40) % [place] % (Auto) 6.2 (3-14) % Eos % (Auto) 2.3 (2-4) % Baso % (Auto) 0.7 (0-2) % Neut # (Auto) 7000 (4642-8064) /uL Lymph # (Auto) 1300 (2182-9181) /uL [place] # (Auto) 600 (0-900) /uL Eos # (Auto) 200 (0-450) /uL Baso # (Auto) 100 (0-100) /uL Sodium 136 L (137-145) mmol/L Potassium 4.5 (3.4-5.1) mmol/L Chloride 102 (98-107) mmol/L Carbon Dioxide 25 (22-32) mmol/L BUN 30 H (9-20) mg/dL Creatinine 1.70 H (0.66-1.25) mg/dL Estimated GFR 41 L (>60) mL/min BUN/Creatinine Ratio 17.6 (6-22) Glucose 165 H (70-99) mg/dL Calcium 8.9 (8.4-10.2) mg/dL Total Bilirubin 0.3 (0.2-1.3) mg/dL AST 22 (17-59) IU/L ALT 14 (<50) IU/L Alkaline Phosphatase 91 (38-126) U/L Total Protein 6.7 (6.3-8.2) g/dL Albumin 3.7 (3.5-5.0) g/dL Globulin 3.0 (1.7-4.1) g/dL Albumin/Globulin Ratio 1.2 (1.0-2.8) Urine Color Yellow Urine Appearance Clear Urine pH 5.5 (4.5-8.0) Ur Specific [place] 1.020 (1.000-1.035) Urine Protein Negative (Negative) Urine Glucose (UA) Negative (Negative) g/dL Urine Ketones Negative (NEGATIVE) Urine Occult Blood Negative (Negative) Urine Nitrate Negative (Negative) Urine Bilirubin Negative (NEGATIVE) Urine Urobilinogen 0.2 (0.2) E.U./dL Ur Leukocyte Esterase Negative (NEGATIVE) Urine RBC 10-30/hpf H None seen D (0-5/HPF) Urine WBC 5-10/hpf H None seen (0-5/HPF) Ur Squamous Epith Cells 0-1 /hpf None seen (0-5/HPF) Amorphous Sediment 2+ 1+ Urine Bacteria Moderate (10-30) H None seen (None) Ur Culture Indicated? Cult not indicated Vol Urine Centrifuged 10ml (spun) 10ml (spun) Urine Dip Bedside Urine Glucose Negative Bedside Urine Bilirubin - Negative Bedside Urine Ketone - Negative Urine Specific [place] 1.010 Bedside Urine Occult Blood + Bedside Urine pH 8.0 Bedside Urine Protein ++ 100 Bedside Urine Urobilinogen - Negative Bedside Urine Nitrite - Negative Bedside Urine Leukocytes ++ 125 Esterase Imaging Data US - DVT: Radiologist's Impression: [address] [address] Ultrasound Report Signed Patient: Erick Álvarez V MR#: [id number] : 1950 Acct:[id number] Age/Sex: 74 / M Date of Service: 11/02/24 Loc: ED Accession Number: [id number] Procedure: US perip venous low extrem rt Ordering Provider: Jamaal Gonzalez D.O. PROCEDURE: US PERIP VENOUS LOW EXTREM RT INDICATIONS: swelling TECHNIQUE: Real-time imaging, as well as color and pulse Doppler interrogation, were performed of the lower extremity deep veins from the inguinal ligament to the popliteal fossa, with documentation of the visualized calf veins. COMPARISON: Merged with [facility], PERIP VENOUS LOW EXTREM RT, 03/26/2022, 17:01. FINDINGS: The common femoral, femoral, popliteal, and the visualized calf veins are normally compressible, and free of intraluminal thrombus. Color and pulse Doppler demonstrate normal phasic intraluminal flow. There is normal augmentation response to distal compression maneuver. Limited evaluation of the calf veins secondary to edema. IMPRESSION: No findings of lower extremity deep venous thrombosis. CT scan - abdomen/pelvis: Radiologist's Impression: [address] [address] [address] Scan Report Signed Patient: Erick Álvarez V MR#: [id number] : 1950 Acct:[id number] Age/Sex: 74 / M Date of Service: 11/02/24 Loc: ED Accession Number: [id number] Procedure: CT kidney ureter bladder (KUB) Ordering Provider: Jamaal Gonzalez D.O. PROCEDURE: CT KIDNEY URETER BLADDER (KUB) INDICATIONS: nephrostomy tube placement evaluation TECHNIQUE: Axial sections were acquired from the lung bases to the pubic symphysis. Coronal and sagittal reformats were performed. For radiation dose reduction, the following was used: automated exposure control, adjustment of mA and/or kV according to patient size. COMPARISON: [facility], CT, CT ABDOMEN PELVIS WO CON, 09/04/2024, 0:52. [facility], CT, CT ABDOMEN PELVIS WO CON, 07/10/2024, 0:03. Merged With [facility], CT, CT ABDOMEN PELVIS WITH CONTRAST, 03/17/2024, 9:22. [facility], CT, CT KIDNEY URETER BLADDER (KUB), 10/29/2022, 9:07. FINDINGS: Image quality: Diagnostic. Lower Chest: Pacemaker leads and prosthetic heart valve are again seen. No pericardial effusion. Small hiatal hernia. Bilateral lung bases are clear. URINARY: Right Kidney: Percutaneous nephrostomy tube is seen in right kidney. No right- sided hydronephrosis. Mild right perinephric fat stranding is seen. Right Ureter: No hydroureter. Left Kidney: No stones or hydronephrosis. Left Ureter: No hydroureter. Bladder: Normal wall thickness. No stones. ABDOMEN: Liver: No contour-deforming solid mass. Gallbladder: No radiopaque gallstones or wall thickening. Biliary ducts: No biliary dilation. Pancreas: No ductal dilation. Spleen: Size is within normal limits. Adrenal Glands: No adrenal nodules. Stomach and Bowel: There is no bowel obstruction. No abnormal bowel wall thickening or mesenteric fat stranding. Colonic diverticulosis without CT evidence of acute diverticulitis. No abscess collection. Peritoneum: No abnormal intraperitoneal fluid. No free air. Ventral Wall: No hernia. Abdominal Nodes: Previously described right pelvic side wall lymphadenopathy extending to involve right psoas muscle has enlarged in size now measures up to 6.4 x 6.5 cm in size compared to 6.4 x 5.5 cm on previous study series 2, image 105 . Right lower pelvic eli mass adjacent to the urinary bladder and is dorsal to the right rectus abdominus muscle measures 2.9 x 2.8 cm is seen compared to 2.5 x 2.4 cm in size on previous study series 2, image 116. Previously described left periaortic lymph no is not significantly changed and measures 2.3 x 2 cm in size compared to 2.2 x 2 cm on previous study series 2, image 59. 5.8 x 3.7 cm lobulated eli mass anterior to the IVC series 2, image 62, previously 5.6 x 3.1 cm in size. Additional enlarged right periaortic lymph nodes are also seen measures up to 4 x 2.6 cm in size series 2, image 85 compared to 3.2 x 2.4 cm in size on previous study. Vessels: Aorta and inferior vena cava are normal in size. PELVIS: Pelvic Organs: Enlarged prostate gland is seen. Pelvic Nodes: Worsening lymphadenopathy along right iliac vessels is seen. Miscellaneous: No inguinal hernias are seen. Bones: No aggressive appearing bony lesions. IMPRESSION: 1. Presence of percutaneous right nephrostomy tube. No right-sided hydronephrosis or hydroureter. Nonspecific mild right perinephric fat stranding. No left-sided renal stones or hydronephrosis. No gross abnormality is seen in partially distended urinary bladder. 2. Interval significant worsening of peritoneal and retroperitoneal lymphadenopathy in periaortic space, right retroperitoneal space, right lower pelvic mesentery and along right iliac vessels as described above consistent with progression of metastatic lymphadenopathy. 3. No bowel obstruction or abnormal bowel wall thickening. No abscess collection. No free fluid or free air. [facility] Narrative Medical decision making narrative: 74-year-old male with a past medical history of cancer undergoing treatment known retroperitoneal mass with right-sided nephrostomy, diabetes, hypertension, on warfarin, presenting via EMS for evaluation of right lower extremity swelling, patient states that he has had some mild swelling over the past few days, is able to stand bear weight ambulate was stating that he recently had a washout of his right knee for an infection, on exam there is no micro motion tenderness to palpation, no overlying erythema and or crepitus, neurovascularly intact, +1 pitting edema to the lower extremity, nephrostomy tube in place, draining appropriate urine, urinalysis is consistent with acute urinary tract infection CT scan showing progression of known mass with out hydro nephrosis but pattern nephric stranding we will treat for pyelonephritis, patient states that there is no current plan for resection of the mass, he states that his oncology team is ?waiting. Reviewed patient's previous urine culture performed on 09.03.24, did show sensitivities to 3rd generation cephalosporin therefore will discharge patient on cefpodoxime. Patient did receive 1 g Rocephin while in the emergency department, lab work without any signs of leukocytosis, patient with creatinine at baseline 1.7, patient is not meeting any sepsis sirs criteria, he has an appointment with his urologist Dr. Barker in the next few days to have his stent replaced he was instructed to follow up with him as well as primary care doctor he verbalized understanding of this agrees to being discharged home with outpatient follow up Discharge Plan Departure Patient Disposition: Home Clinical Impression: Acute pyelonephritis Instructions: DI for Kidney Infection Activity Restrictions/Additional Instructions: Follow up with your urologist for your scheduled appointment Please read the discharge instructions sheet carefully and bring all papers to all doctor follow-up visits, as it may contain information that your doctor may want to see. Disease processes change and evolve, if your symptoms worsen or if you develop any new symptoms that are concerning to you please return for evaluation. Your evaluation today does not show any evidence of any life- threatening/serious illnesses requiring admission to the hospital or surgery. Please follow-up with your doctor for re-evaluation in approximately 1 day. Seek immediate medical attention for any worrisome symptoms. *If you do not have a primary care provider please contact the [facility] Resource line at [phone]. They will ask some questions about your medical history and help get you set up with a doctor in the community. Prescriptions: New cefpodoxime 200 mg tablet 200 mg PO BID 14 Days Qty: 28 0RF Rx Instructions: must administer with a meal/food No Action acetaminophen 325 mg Tablet 650 mg PO Q4H PRN (Reason: pain) atorvastatin 40 mg Tablet 60 mg PO BEDTIME Antacid (calcium carbonate) 215 mg calcium (500 mg) Tablet,Chewable 500 mg DAILY Rx Instructions: AM furosemide 40 mg Tablet 40 mg PO BID ferrous sulfate 325 mg (65 mg iron) Tablet 325 mg PO DAILY metoprolol succinate 25 mg Tablet Extended Release 24 Hr 12.5 mg PO DAILY Rx Instructions: Hold for SBP < 100, HR < 60 lisinopril 2.5 mg Tablet 2.5 mg PO DAILY pantoprazole [Protonix] 40 mg Tablet,Delayed Release (Dr/Ec) 40 mg PO DAILY ropinirole 1 mg Tablet 2 mg PO BID tolterodine [Detrol LA] 4 mg Capsule,Extended Release 24hr 4 mg PO DAILY sertraline [Zoloft] 50 mg Tablet 50 mg PO DAILY insulin lispro 100 unit/mL Cartridge 2 sliding scale dose SUBCUT USEASDIRECTD Patient Comments: No coverage if CBG less than 150 spironolactone 25 mg tablet 25 mg PO BID bicalutamide 50 mg tablet 50 mg PO DAILY Rx Instructions: Prostate CA ondansetron 4 mg tablet,disintegrating 8 mg PO Q6H PRN (Reason: Nausea) warfarin 6 mg Tablet 6 mg PO 6XW Qty: 0 Patient Comments: 6mg M,T,W,TH,FR,SA - 6.5mg on Sundays hydrocodone-acetaminophen 5-325 mg tablet 2 tab PO Q6H PRN (Reason: pain) Qty: 30 0RF insulin glargine 100 unit/mL Solution 13 unit SUBCUT BEDTIME potassium chloride 10 mEq Tablet Extended Release 10 meq PO DAILY allopurinol 100 mg Tablet 200 mg PO DAILY pramipexole 0.5 mg Tablet 0.5 mg PO BEDTIME warfarin 6 mg Tablet 6 mg PO SEEINSTR Patient Comments: 6.5mg on Wednesday, 6mg rest dextroamphetamine-amphetamine [Adderall XR] 10 mg Capsule,Extended Release 24hr 10 mg PO QAM gabapentin 100 mg Tablet 1,000 mg PO BEDTIME gabapentin 100 mg Tablet 500 mg PO QAM pregabalin 150 mg Capsule 150 mg PO BEDTIME gabapentin 300 mg Tablet Extended Release 24 Hr 300 mg PO DAILY Xtampza ER 9 mg Cap,Sprinkl,Er12hr(Dont Crush) 9 mg PO Q12H Rx Instructions: must administer with a meal/food Xtandi 40 mg Tablet 160 mg PO QAM Referrals: Lizbeth Schaefer ARNP [Primary Care Provider] - Stand Alone Forms: Patient Portal/API/Survey
[2024-11-02] MEDS: cefTRIAXone 1,000 MG in SODIUM CHLORIDE 0.9% 100 ML 200 MG IV (22:24)
[2024-11-02 22:27] LABS: Add Manual Diff / Slide Review NO; Basophils Absolute Auto 100 /uL (0-100); Basophils Percent Auto 0.7 % (0-2); Eosinophils Absolute Auto 200 /uL (0-450); Eosinophils Percent Auto 2.3 % (2-4); Hematocrit 28.8 % (41-53); Hemoglobin 9.5 g/dL (13.5-17.5); Lymphocytes Absolute Auto 1300 /uL (1100-4500); Lymphocytes Percent Auto 13.7 % (25-40); Mean Corpuscular HGB Conc 33.1 % (30-36); Mean Corpuscular Hemoglobin 27.3 PG (26-34); Mean Corpuscular Volume 82.6 fL (80-100); Monocytes Absolute Auto 600 /uL (0-900); Monocytes Percent Auto 6.2 % (3-14); Neutrophils Absolute Auto 7000 /uL (1500-7000); Neutrophils Percent Auto 77.1 % (50-75); Platelet Count 206 X10^3/uL (150-400); Red Blood Cell Count 3.49 X10^6/uL (4.5-5.9); Red Cell Distribution Width 18.3 % (11.6-14.8); White Blood Cell Count 9.1 X10^3/uL (4.5-11.0)
[2024-11-02 22:40] LABS: Alanine Aminotransferase 14 IU/L (<50); Albumin 3.7 g/dL (3.5-5.0); Albumin Globulin Ratio 1.2 (1.0-2.8); Alkaline Phosphatase 91 U/L (38-126); Aspartate Aminotransferase 22 IU/L (17-59); BUN Creatinine Ratio 17.6 (6-22); Bilirubin Total 0.3 mg/dL (0.2-1.3); Blood Urea Nitrogen 30 mg/dL (9-20); Calcium 8.9 mg/dL (8.4-10.2); Carbon Dioxide 25 mmol/L (22-32); Chloride 102 mmol/L (98-107); Estimated Glomerular Filt Rate 41 mL/min (>60); Glucose 165 mg/dL (70-99); HEMOLYSIS < 15 (0-50); Potassium 4.5 mmol/L (3.4-5.1); Sodium 136 mmol/L (137-145); Total Protein 6.7 g/dL (6.3-8.2)
== END 2024-11-02 23:15 | disposition home or self-care (01) ==
PROVIDERS: Emergency Provider Student in an Organized Health Care Education/Training Program; PCP Nurse Practitioner Family
DX: N12 Tubulo-interstitial nephritis, not specified as acute or chronic (principal); Z79.01 Long term (current) use of anticoagulants; Z95.0 Presence of cardiac pacemaker
CPT/HCPCS: 36415; 74176; 80053; 81001; 81003; 81015; 85025; 87077; 87086; 87147; 87186; 93971; 96365; 99284; J0696

== ENCOUNTER 2024-11-03 08:03 | Emergency (ER) | payer MEDICARE, MEDICAID, SELFPAY ==
[2024-10-11 14:24] VITALS: BMI 35.8
[2024-11-03] VITALS (9 sets, daily range): BP systolic 96–138; BP diastolic 55–68; PULSE 69–100; RESP 16; TEMP 36.5; O2SAT 95–98; BMI 34.2
--- NOTE | 2024-11-03 08:06 | ED_ITS ---
HPI - General Adult General Chief complaint: Urogenital-Male Stated complaint: Urostomy problem Time Seen by Provider: 11/03/24 08:06 Source: patient, EMS and old records reviewed Mode of arrival: EMS History of Present Illness HPI narrative: 74-year-old male history of diabetes, CHF, CAD with pacemaker on warfarin, right nephrostomy tube who represents for hematuria from his nephrostomy. Patient states he was here yesterday was concerned that his nephrostomy tube may not be draining appropriately. Upon arrival it is noted that it was not currently attached to his skin but appears to be in the appropriate positioning. He woke up with hematuria this morning denies any abdominal back or flank pain. No fevers. No nausea or vomiting. No issues with bowel movements. He does still make urine and notes no hematuria with urination. States it bag was full this morning when he woke up. He states he did not have any hematuria last night when he was in the hospital. Patient follows he states it is LaresYana barnettham and here has had hit her nephrostomy in for approximately a year or longer. Related Data Home Medications Medication Instructions Recorded Confirmed acetaminophen 325 mg tablet 650 mg PO Q4H PRN pain 06/13/22 10/10/24 atorvastatin 40 mg tablet 60 mg PO BEDTIME 06/13/22 10/11/24 calcium carbonate (Antacid 500 mg DAILY 06/13/22 10/10/24 (calcium carbonate)) ferrous sulfate 325 mg (65 mg 325 mg PO DAILY 06/13/22 10/11/24 iron) tablet furosemide 40 mg tablet 40 mg PO BID 06/13/22 10/11/24 insulin lispro 100 unit/mL 2 sliding scale dose SUBCUT 06/13/22 10/11/24 subcutaneous cartridge USEASDIRECTD lisinopril 2.5 mg tablet 2.5 mg PO DAILY 06/13/22 10/11/24 metoprolol succinate 25 mg 12.5 mg PO DAILY 06/13/22 10/11/24 tablet,extended release 24 hr pantoprazole 40 mg tablet,delayed 40 mg PO DAILY 06/13/22 10/11/24 release (Protonix) ropinirole 1 mg tablet 2 mg PO BID 06/13/22 10/11/24 sertraline 50 mg tablet (Zoloft) 50 mg PO DAILY 06/13/22 10/11/24 tolterodine 4 mg capsule,extended 4 mg PO DAILY 06/13/22 10/11/24 release 24 hr (Detrol LA) bicalutamide 50 mg tablet 50 mg PO DAILY 12/14/22 10/11/24 ondansetron 4 mg disintegrating 8 mg PO Q6H PRN Nausea 12/14/22 10/10/24 tablet spironolactone 25 mg tablet 25 mg PO BID 12/14/22 10/11/24 warfarin 6 mg tablet 6 mg PO 6XW ##0 11/22/23 10/10/24 allopurinol 100 mg tablet 200 mg PO DAILY 10/10/24 10/11/24 dextroamphetamine-amphetamine ER 10 mg PO QAM 10/10/24 10/11/24 10 mg 24hr capsule,extend release (Adderall XR) enzalutamide 40 mg tablet (Xtandi) 160 mg PO QAM Cancer treatment 10/10/24 10/11/24 gabapentin 100 mg tablet 1,000 mg PO BEDTIME 10/10/24 10/11/24 gabapentin 100 mg tablet 500 mg PO QAM 10/10/24 10/11/24 gabapentin 300 mg tablet,extended 300 mg PO DAILY 10/10/24 10/10/24 release 24 hr insulin glargine 100 unit/mL 13 unit SUBCUT BEDTIME 10/10/24 10/11/24 subcutaneous solution oxycodone myristate 9 mg capsule 9 mg PO Q12H Pain 10/10/24 10/11/24 sprinkle extended release 12 hr(DON'T CRUSH) (Xtampza ER) potassium chloride 10 mEq 10 meq PO DAILY 10/10/24 10/11/24 tablet,extended release pramipexole 0.5 mg tablet 0.5 mg PO BEDTIME 10/10/24 10/11/24 pregabalin 150 mg capsule 150 mg PO BEDTIME 10/10/24 10/11/24 warfarin 6 mg tablet 6 mg PO SEEINSTR 10/10/24 10/10/24 Previous Rx's Medication Instructions Recorded hydrocodone 5 mg-acetaminophen 325 2 tab PO Q6H PRN pain #30 tabs 08/16/23 mg tablet cefpodoxime 200 mg tablet 200 mg PO BID 2 weeks #28 tabs 11/02/24 Allergies Allergy/AdvReac Type Severity Reaction Status Date / Time crab Allergy Severe Deathly Verified 10/11/24 10:51 sick aspartame Allergy Unknown Verified 10/11/24 10:51 carbidopa Allergy Hallucinations, Verified 10/11/24 10:51 anxiety morphine AdvReac Nausea/vomi Verified 10/11/24 10:51 ting Review of Systems Review of Systems ROS Unobtainable: All systems reviewed & are unremarkable except as noted in HPI and below Patient History Medical History Cardiomyopathy DVT (deep venous thrombosis) History of left heart catheterization (12/2019) Atrial fibrillation Paroxysmal A-fib RBBB LAFB (left anterior fascicular block) First degree AV block History of transcatheter aortic valve replacement (TAVR) (08/01/18) Sleep apnea CAD (coronary artery disease) Stress incontinence Enlarged lymph node Chronic anticoagulation Androgen deprivation therapy Stress incontinence, male History of radiation therapy Hydronephrosis, right Prostate cancer Osteoarthritis Hypertension Gout Depression History of prostate cancer Arthritis GERD (gastroesophageal reflux disease) Diabetes Congestive heart failure Pacemaker Surgical History H/O insertion of nephrostomy tube AICD (automatic cardioverter/defibrillator) present (12/30/20) Hx of heart artery stent History of back surgery H/O aortic valve replacement Family History Mother Coronary artery disease involving bypass graft of transplanted heart Cancer Hypertension Social History marital status: number of children: 3 household members: none Previous occupational history: retired alcohol intake: former caffeine: Yes tobacco type: cigarettes alcohol intake frequency: 0-2 drinks per day Exam Narrative Exam Narrative: GENERAL: Alert and oriented x three, male in mild distress HEENT: Head normocephalic, atraumatic, EOMI, pupils reactive, face symmetric, moist mucous membranes NECK: Supple, full range of motion CARDIOVASCULAR: Regular rate and rhythm without murmurs, rubs or gallops. RESPIRATORY: Breath sounds equal bilaterally, no wheezes rales or rhonchi. ABDOMEN: Soft, nontender. Normoactive bowel sounds all 4 quadrants. No guarding or rebound, rigidity, no mass : No CVA tenderness, patient has right nephrostomy tube the suture is attached to the tube but appears to have pulled out of the skin, there some scant erythema locally. Appears to be in proper positioning does not appear to be draining bloody urine no large clots. Patient is nontender over the area. EXTREMITIES: Normal range of motion, no clubbing or edema. Neurovascularly intact NEUROLOGICAL: Cranial nerves II through XII grossly intact. Moving all extremities SKIN: Warm, dry, no petechiae, no rashes or lesions. Initial Vital Signs Initial Vital Signs: Vital Signs Pulse Rate 86 11/03/24 08:06 Pulse Oximetry 97 11/03/24 08:06 [place] [facility] [place] Procedure: Right nephrostomy tube sutures replaced. Side (if applicable): right Location: Right nephrostomy tube Technique/Description of procedure performed: Anesthesia was obtained with: 3 cc of lidocaine 2% on each side of the nephrostomy opening for a total of 6 mL. Area was prepped with alcohol and Betadine. Repair: 2 sutures were placed and nephrostomy tube was secured with 3-0 nylon Course Orders Ordered: ED Orders 11/03/24 08:12 CT kidney ureter bladder (KUB) Stat 11/03/24 08:19 CBC Auto Diff [Complete Blood Count AUTO DIFF] Stat CMP [Comprehensive Metabolic Panel] Stat Prothrombin Time INR Stat 11/03/24 09:31 UA Complete [Urinalysis and Microscopic] Stat Discontinued Medications Lidocaine HCl (Lidocaine 2% Inj Sdv 5ml) 5 ml INJ INTRA-OP ONE Stop: 11/03/24 08:13 Last Admin: 11/03/24 08:35 Dose: 5 ml Documented By: KYLE Vital Signs Vital signs: Vital Signs - 8 hr 11/03/24 08:06 11/03/24 08:07 11/03/24 08:07 Temperature Pulse Rate 86 85 Respiratory Rate Blood Pressure 138/68 Pulse Oximetry 97 97 Oxygen Delivery Method 11/03/24 08:29 11/03/24 08:30 11/03/24 08:31 Temperature 97.7 F Pulse Rate 91 H 69 Respiratory Rate 16 Blood Pressure 138/68 96/55 L Pulse Oximetry 96 95 Oxygen Delivery Method Room Air 11/03/24 08:31 11/03/24 08:57 11/03/24 08:57 Temperature Pulse Rate 70 70 Respiratory Rate Blood Pressure 125/62 Pulse Oximetry 95 98 Oxygen Delivery Method 11/03/24 09:00 11/03/24 09:00 11/03/24 10:02 Temperature Pulse Rate 71 100 H Respiratory Rate Blood Pressure 121/62 Pulse Oximetry 97 98 Oxygen Delivery Method 11/03/24 10:03 11/03/24 10:03 Temperature Pulse Rate 85 Respiratory Rate Blood Pressure 121/64 Pulse Oximetry 98 Oxygen Delivery Method Room Air Medical Decision Making Lab Data 11/03/24 08:19 11/03/24 08:19 Labs: Lab Results 11/03/24 Range/Units 08:19 WBC 8.8 (4.5-11.0) X10^3/uL RBC 3.55 L (4.5-5.9) X10^6/uL Hgb 9.9 L (13.5-17.5) g/dL Hct 29.2 L (41-53) % MCV 82.4 (80-100) fL MCH 27.8 (26-34) PG MCHC 33.7 (30-36) % RDW 18.1 H (11.6-14.8) % Plt Count 213 (150-400) X10^3/uL Neut % (Auto) 76.0 H (50-75) % Lymph % (Auto) 14.1 L (25-40) % [place] % (Auto) 6.3 (3-14) % Eos % (Auto) 3.0 (2-4) % Baso % (Auto) 0.6 (0-2) % Neut # (Auto) 6700 (0671-5615) /uL Lymph # (Auto) 1200 (7325-7735) /uL [place] # (Auto) 600 (0-900) /uL Eos # (Auto) 300 (0-450) /uL Baso # (Auto) 100 (0-100) /uL PT 21.0 H (9.4-12.5) SECONDS INR 1.9 H (0.9-1.3) Sodium 136 L (137-145) mmol/L Potassium 4.2 (3.4-5.1) mmol/L Chloride 103 (98-107) mmol/L Carbon Dioxide 22 (22-32) mmol/L BUN 29 H (9-20) mg/dL Creatinine 1.55 H (0.66-1.25) mg/dL Estimated GFR 46 L (>60) mL/min BUN/Creatinine Ratio 18.7 (6-22) Glucose 175 H (70-99) mg/dL Calcium 9.2 (8.4-10.2) mg/dL Total Bilirubin 0.5 (0.2-1.3) mg/dL AST 26 (17-59) IU/L ALT 15 (<50) IU/L Alkaline Phosphatase 87 (38-126) U/L Total Protein 7.1 (6.3-8.2) g/dL Albumin 3.9 (3.5-5.0) g/dL Globulin 3.2 (1.7-4.1) g/dL Albumin/Globulin Ratio 1.2 (1.0-2.8) MDM Narrative Medical decision making narrative: 74-year-old male presents with complaint of hematuria, he states he was here yesterday concerned about malposition of his nephrostomy tube had imaging which did not show any malposition she states seemed to be draining overnight but had painless hematuria which is new has sometimes preceded issues. It does not appear that the suture for his nephrostomy tube had broken this was replaced prior to repeat imaging today. Labs were also sent. Patient has a urine culture pending from yesterday which has not resulted. Patient notes he was supposed to have his nephrostomy changed in the next week. Labs show white count 8.8 was 9.1 yesterday hemoglobin is 9.9 was 9.5 yesterday pellets are 213. INR is 1.9, chemistries show creatinine of 1.55 actually improved from yesterday which was 1.7 sodium is 136 BUN 29 glucose is 175 LFTs are otherwise negative. Urine culture resulted while patient was in the department. He was greater than [id number] g negative bacilli sensitivities are still pending. Based on prior cultures from August 2024 but sensitivity to 3rd generation cephalosporin. Patient was started on cefpodoxime last night. CT KUB shows appropriate position right-sided percutaneous nephrostomy tube without hydronephrosis, stable retroperitoneal pelvic lymphadenopathy and peritoneal metastases continued oncologic surveillance recommended. Patient does follow up with Urology at [facility]. Reached out to the on-call Urology, and spoke with Lata MA at 9:55 a.m. Reviewed findings from last night as well as today patient does have crying that bacilli greater 100,000 and urine agrees to continue antibiotics but she states if draining with no issue can discharge home with no other further intervention. Discussed all this with the patient he feels comfortable with the plan discussed return precautions. Discharge Plan Departure Patient Disposition: Home Clinical Impression: Hematuria, Pyelonephritis Activity Restrictions/Additional Instructions: Your workup today shows that your nephrostomy tube appears to be still in place, it was resecured here with 2 sutures. Follow up with your urology team. Your hematuria maybe from little bit of trauma from the to moving and infection. Urine culture sensitivities are still pending but did grow out Gram-negative bacilli. Take the antibiotics you have been prescribed start them today. I did talk to Urology at [facility] today. They note as long as your draining your nephrostomy tube without issue can follow up at your normal timing. Please return for fevers, new abdominal back or flank pain, large blood clots, any signs of blockage or if you are nephrostomy tube is not draining, nausea or vomiting or other new or concerning changes. Prescriptions: No Action acetaminophen 325 mg Tablet 650 mg PO Q4H PRN (Reason: pain) atorvastatin 40 mg Tablet 60 mg PO BEDTIME Antacid (calcium carbonate) 215 mg calcium (500 mg) Tablet,Chewable 500 mg DAILY Rx Instructions: AM furosemide 40 mg Tablet 40 mg PO BID ferrous sulfate 325 mg (65 mg iron) Tablet 325 mg PO DAILY metoprolol succinate 25 mg Tablet Extended Release 24 Hr 12.5 mg PO DAILY Rx Instructions: Hold for SBP < 100, HR < 60 lisinopril 2.5 mg Tablet 2.5 mg PO DAILY pantoprazole [Protonix] 40 mg Tablet,Delayed Release (Dr/Ec) 40 mg PO DAILY ropinirole 1 mg Tablet 2 mg PO BID tolterodine [Detrol LA] 4 mg Capsule,Extended Release 24hr 4 mg PO DAILY sertraline [Zoloft] 50 mg Tablet 50 mg PO DAILY insulin lispro 100 unit/mL Cartridge 2 sliding scale dose SUBCUT USEASDIRECTD Patient Comments: No coverage if CBG less than 150 spironolactone 25 mg tablet 25 mg PO BID bicalutamide 50 mg tablet 50 mg PO DAILY Rx Instructions: Prostate CA ondansetron 4 mg tablet,disintegrating 8 mg PO Q6H PRN (Reason: Nausea) warfarin 6 mg Tablet 6 mg PO 6XW Qty: 0 Patient Comments: 6mg M,T,W,TH,FR,SA - 6.5mg on Sundays cefpodoxime 200 mg tablet 200 mg PO BID 14 Days Qty: 28 0RF Rx Instructions: must administer with a meal/food hydrocodone-acetaminophen 5-325 mg tablet 2 tab PO Q6H PRN (Reason: pain) Qty: 30 0RF insulin glargine 100 unit/mL Solution 13 unit SUBCUT BEDTIME potassium chloride 10 mEq Tablet Extended Release 10 meq PO DAILY allopurinol 100 mg Tablet 200 mg PO DAILY pramipexole 0.5 mg Tablet 0.5 mg PO BEDTIME warfarin 6 mg Tablet 6 mg PO SEEINSTR Patient Comments: 6.5mg on Wednesday, 6mg rest dextroamphetamine-amphetamine [Adderall XR] 10 mg Capsule,Extended Release 24hr 10 mg PO QAM gabapentin 100 mg Tablet 1,000 mg PO BEDTIME gabapentin 100 mg Tablet 500 mg PO QAM pregabalin 150 mg Capsule 150 mg PO BEDTIME gabapentin 300 mg Tablet Extended Release 24 Hr 300 mg PO DAILY Xtampza ER 9 mg Cap,Sprinkl,Er12hr(Dont Crush) 9 mg PO Q12H Rx Instructions: must administer with a meal/food Xtandi 40 mg Tablet 160 mg PO QAM Referrals: Lizbeth Schaefer ARNP [Primary Care Provider] - Stand Alone Forms: Patient Portal/API/Survey
--- NOTE | 2024-11-03 08:12 | DI.CT.S_ITS ---
PROCEDURE: CT KIDNEY URETER BLADDER (KUB) INDICATIONS: nephrostomy tube appears in placed but untied, hematuria TECHNIQUE: After the administration of oral contrast, 5 mm thick sections acquired from the diaphragms to the symphysis. 5 mm coronal and sagittal reformats were performed. For radiation dose reduction, the following was used: automated exposure control, adjustment of mA and/or kV according to patient size. COMPARISON: [facility], CT, CT KIDNEY URETER BLADDER (KUB), 11/02/2024, 19:24. FINDINGS: Image quality: Diagnostic. Lower Chest: Intracardiac leads. ABDOMEN: Liver: No contour-deforming mass. Gallbladder: No radiopaque gallstones or wall thickening. Biliary ducts: No biliary dilation. Pancreas: No ductal dilation. Spleen: Size is within normal limits. Adrenal Glands: No adrenal nodules. Kidneys and Ureters: Right-sided percutaneous nephrostomy tube in place, within the renal pelvis. No hydronephrosis. Atrophic right kidney. Left kidney is unremarkable. Stomach and Bowel: Normal colonic caliber, without significant wall thickening. Peritoneum: No abnormal intraperitoneal fluid. No free air. Stable nodularity anterior to the bladder. Ventral Wall: No significant hernia. Abdominal Nodes: Stable retroperitoneal adenopathy, largest node measures 3.6 cm short axis in the aortocaval station. Vessels: Aorta and inferior vena cava are normal in size. PELVIS: Pelvic Organs: Prostate brachytherapy clips.. Bladder: Unremarkable. Pelvic Nodes: Stable extensive pelvic adenopathy and confluent right pelvic sidewall mass, measuring 8.7 x 7.2 cm. Miscellaneous: No inguinal hernias are seen. Bones: No aggressive osseous abnormality. Stable anterior wedging of the L3 vertebral body. IMPRESSION: Appropriate position of the right-sided percutaneous nephrostomy tube, without hydronephrosis. Stable retroperitoneal, pelvic lymphadenopathy and peritoneal metastases. Continued oncologic surveillance is recommended. Dictated by: Ramone Anne M.D. on 11/03/2024 at 9:08 Approved by: Ramone Anne M.D. on 11/03/2024 at 9:14
[2024-11-03 08:27] LABS: Add Manual Diff / Slide Review NO; Basophils Absolute Auto 100 /uL (0-100); Basophils Percent Auto 0.6 % (0-2); Eosinophils Absolute Auto 300 /uL (0-450); Hematocrit 29.2 % (41-53); Hemoglobin 9.9 g/dL (13.5-17.5); Lymphocytes Absolute Auto 1200 /uL (1100-4500); Lymphocytes Percent Auto 14.1 % (25-40); Mean Corpuscular HGB Conc 33.7 % (30-36); Mean Corpuscular Hemoglobin 27.8 PG (26-34); Mean Corpuscular Volume 82.4 fL (80-100); Monocytes Absolute Auto 600 /uL (0-900); Monocytes Percent Auto 6.3 % (3-14); Neutrophils Absolute Auto 6700 /uL (1500-7000); Platelet Count 213 X10^3/uL (150-400); Red Blood Cell Count 3.55 X10^6/uL (4.5-5.9); Red Cell Distribution Width 18.1 % (11.6-14.8); White Blood Cell Count 8.8 X10^3/uL (4.5-11.0)
[2024-11-03] MEDS: LIDOCAINE 2% INJ SDV 5ML 5 ML INJ (08:35)
[2024-11-03 08:39] LABS: INR 1.9 (0.9-1.3)
[2024-11-03 08:43] LABS: Alanine Aminotransferase 15 IU/L (<50); Albumin 3.9 g/dL (3.5-5.0); Albumin Globulin Ratio 1.2 (1.0-2.8); Alkaline Phosphatase 87 U/L (38-126); Aspartate Aminotransferase 26 IU/L (17-59); BUN Creatinine Ratio 18.7 (6-22); Bilirubin Total 0.5 mg/dL (0.2-1.3); Blood Urea Nitrogen 29 mg/dL (9-20); Calcium 9.2 mg/dL (8.4-10.2); Carbon Dioxide 22 mmol/L (22-32); Chloride 103 mmol/L (98-107); Estimated Glomerular Filt Rate 46 mL/min (>60); Globulin 3.2 g/dL (1.7-4.1); Glucose 175 mg/dL (70-99); HEMOLYSIS 24 (0-50); Potassium 4.2 mmol/L (3.4-5.1); Sodium 136 mmol/L (137-145); Total Protein 7.1 g/dL (6.3-8.2)
== END 2024-11-03 10:22 | disposition home or self-care (01) ==
PROVIDERS: Emergency Provider Emergency Medicine; PCP Nurse Practitioner Family
DX: R31.9 Hematuria, unspecified (principal); N12 Tubulo-interstitial nephritis, not specified as acute or chronic; Z95.0 Presence of cardiac pacemaker; Z79.01 Long term (current) use of anticoagulants
CPT/HCPCS: 17999; 74176; 80053; 85025; 85610; 99282; 99283

== ENCOUNTER → 2024-11-08 06:04 | Outpatient (ROUT) | payer MEDICARE, MEDICAID, SELFPAY ==
[2024-10-11 14:24] VITALS: BMI 35.8
[2024-11-08 07:33] LABS: Prothrombin Time 22.7 SECONDS (9.4-12.5)
== END ==
PROVIDERS: PCP Nurse Practitioner Family; Visit Provider Registered Nurse
DX: I48.91 Unspecified atrial fibrillation (principal)
CPT/HCPCS: 36415; 85610

== ENCOUNTER → 2024-11-22 07:49 | Outpatient (ROUT) | payer MEDICARE, MEDICAID, SELFPAY ==
[2024-10-11 14:24] VITALS: BMI 35.8
[2024-11-22 08:37] LABS: INR 1.9 (0.9-1.3); Prothrombin Time 21.2 SECONDS (9.4-12.5)
== END ==
PROVIDERS: PCP Nurse Practitioner Family; Visit Provider Registered Nurse
DX: I48.91 Unspecified atrial fibrillation (principal)
CPT/HCPCS: 36415; 85610

== ENCOUNTER → 2024-11-29 07:45 | Outpatient (ROUT) | payer MEDICARE, MEDICAID, SELFPAY ==
[2024-10-11 14:24] VITALS: BMI 35.8
[2024-11-29 08:06] LABS: INR 1.7 (0.9-1.3); Prothrombin Time 18.5 SECONDS (9.4-12.5)
== END ==
LOC: LAB 07:45
PROVIDERS: PCP Nurse Practitioner Family; Visit Provider Hospitalist
DX: I48.91 Unspecified atrial fibrillation (principal)
CPT/HCPCS: 36415; 85610

== ENCOUNTER → 2024-12-06 08:18 | Outpatient (ROUT) | payer MEDICARE, MEDICAID, SELFPAY ==
[2024-10-11 14:24] VITALS: BMI 35.8
[2024-12-06 08:39] LABS: INR 1.7 (0.9-1.3)
== END ==
LOC: LAB 08:19
PROVIDERS: PCP Nurse Practitioner Family; Visit Provider Registered Nurse
DX: I48.91 Unspecified atrial fibrillation (principal)
CPT/HCPCS: 36415; 85610

== ENCOUNTER 2024-12-07 23:48 | Emergency (ER) | payer MEDICARE, MEDICAID, SELFPAY ==
[2024-10-11 14:24] VITALS: BMI 35.8
[2024-12-07 23:47] VITALS: BP 113/58; PULSE 77; O2SAT 93
--- NOTE | 2024-12-07 23:48 | ED.LOWEXIN ---
HPI - Extremity Injury (Lower) General Chief Complaint: Extremity Injury, Lower Stated Complaint: R hip/knee pain Time Seen by Provider: 12/07/24 23:48 History of Present Illness HPI Narrative: Patient is a 74-year-old male with a past medical history diabetes, CHF, CAD with pacemaker on warfarin, right nephrostomy tube presenting from facility for evaluation of exacerbation of his right hip/leg pain. Patient states he has a history of restless leg, states that it is in an exacerbation, states that he was given some medicine at the facility but states that it did not help, therefore wanted more medication here to improve his symptoms. He denies any other symptoms at this time, no trauma no falls, states that he is here just for pain control. Related Data Home Medications ?Medication ?Instructions ?Recorded ?Confirmed acetaminophen 325 mg tablet 650 mg PO Q4H PRN pain 06/13/22 10/10/24 atorvastatin 40 mg tablet 60 mg PO BEDTIME 06/13/22 10/11/24 calcium carbonate (Antacid 500 mg DAILY 06/13/22 10/10/24 (calcium carbonate)) ferrous sulfate 325 mg (65 mg 325 mg PO DAILY 06/13/22 10/11/24 iron) tablet furosemide 40 mg tablet 40 mg PO BID 06/13/22 10/11/24 insulin lispro 100 unit/mL 2 sliding scale dose SUBCUT 06/13/22 10/11/24 subcutaneous cartridge USEASDIRECTD lisinopril 2.5 mg tablet 2.5 mg PO DAILY 06/13/22 10/11/24 metoprolol succinate 25 mg 12.5 mg PO DAILY 06/13/22 10/11/24 tablet,extended release 24 hr pantoprazole 40 mg tablet,delayed 40 mg PO DAILY 06/13/22 10/11/24 release (Protonix) ropinirole 1 mg tablet 2 mg PO BID 06/13/22 10/11/24 sertraline 50 mg tablet (Zoloft) 50 mg PO DAILY 06/13/22 10/11/24 tolterodine 4 mg capsule,extended 4 mg PO DAILY 06/13/22 10/11/24 release 24 hr (Detrol LA) bicalutamide 50 mg tablet 50 mg PO DAILY 12/14/22 10/11/24 ondansetron 4 mg disintegrating 8 mg PO Q6H PRN Nausea 12/14/22 10/10/24 tablet spironolactone 25 mg tablet 25 mg PO BID 12/14/22 10/11/24 warfarin 6 mg tablet 6 mg PO 6XW ##0 11/22/23 10/10/24 allopurinol 100 mg tablet 200 mg PO DAILY 10/10/24 10/11/24 dextroamphetamine-amphetamine ER 10 mg PO QAM 10/10/24 10/11/24 10 mg 24hr capsule,extend release (Adderall XR) enzalutamide 40 mg tablet (Xtandi) 160 mg PO QAM Cancer treatment 10/10/24 10/11/24 gabapentin 100 mg tablet 1,000 mg PO BEDTIME 10/10/24 10/11/24 gabapentin 100 mg tablet 500 mg PO QAM 10/10/24 10/11/24 gabapentin 300 mg tablet,extended 300 mg PO DAILY 10/10/24 10/10/24 release 24 hr insulin glargine 100 unit/mL 13 unit SUBCUT BEDTIME 10/10/24 10/11/24 subcutaneous solution oxycodone myristate 9 mg capsule 9 mg PO Q12H Pain 10/10/24 10/11/24 sprinkle extended release 12 hr(DON'T CRUSH) (Xtampza ER) potassium chloride 10 mEq 10 meq PO DAILY 10/10/24 10/11/24 tablet,extended release pramipexole 0.5 mg tablet 0.5 mg PO BEDTIME 10/10/24 10/11/24 pregabalin 150 mg capsule 150 mg PO BEDTIME 10/10/24 10/11/24 warfarin 6 mg tablet 6 mg PO SEEINSTR 10/10/24 10/10/24 Previous Rx's ?Medication ?Instructions ?Recorded hydrocodone 5 mg-acetaminophen 325 2 tab PO Q6H PRN pain #30 tabs 08/16/23 mg tablet Allergies Allergy/AdvReac Type Severity Reaction Status Date / Time crab Allergy Severe Deathly Verified 12/07/24 23:49 sick aspartame Allergy Unknown Verified 12/07/24 23:49 carbidopa Allergy Hallucinations, Verified 12/07/24 23:49 anxiety morphine AdvReac Nausea/vomi Verified 12/07/24 23:49 ting Review of Systems Review of Systems Narrative: General: Denies fever, chills, weight loss HEENT: Denies headache, eye drainage, eye irritation, head trauma, sore throat, voice change Cardiovascular: Denies any chest pain, palpitations, tachycardia Respiratory: Denies any shortness of breath, cough, wheeze, stridor GI/: Denies any abdominal pain, nausea, vomiting, diarrhea, bright red blood per rectum, melanotic stools, urinary frequency, urinary retention, dysuria, hematuria MSK: Positive right lower leg pain Skin: Denies any rashes, lesions, discoloration Neuro: Denies any headache, lightheadedness, dizziness, fainting, weakness Psych: Denies SI/HI Patient History Medical History Cardiomyopathy DVT (deep venous thrombosis) History of left heart catheterization (12/2019) Atrial fibrillation Paroxysmal A-fib RBBB LAFB (left anterior fascicular block) First degree AV block History of transcatheter aortic valve replacement (TAVR) (08/01/18) Sleep apnea CAD (coronary artery disease) Stress incontinence Enlarged lymph node Chronic anticoagulation Androgen deprivation therapy Stress incontinence, male History of radiation therapy Hydronephrosis, right Prostate cancer Osteoarthritis Hypertension Gout Depression History of prostate cancer Arthritis GERD (gastroesophageal reflux disease) Diabetes Congestive heart failure Pacemaker Surgical History H/O insertion of nephrostomy tube AICD (automatic cardioverter/defibrillator) present (12/30/20) Hx of heart artery stent History of back surgery H/O aortic valve replacement Family History Mother Coronary artery disease involving bypass graft of transplanted heart Cancer Hypertension Social History marital status: number of children: 3 household members: none Previous occupational history: retired Smoking Status: Never smoker alcohol intake: former caffeine: Yes tobacco type: cigarettes alcohol intake frequency: 0-2 drinks per day Exam Narrative Exam Narrative: General: Cooperative, well-developed, not in acute distress HEENT: Normocephalic, atraumatic, PERRLA, normal sclera, eyelids normal Neck: Active full range of motion, atraumatic Chest: Normal to inspection, negative crepitus, no overlying erythema ecchymosis Respiratory: Normal respiratory effort, not in acute respiratory distress, clear to auscultation bilaterally negative cough, wheeze, tachypnea, rhonchi, rales Cardiology: Regular rate rhythm negative gallop, murmur, rubs GI/: Patient with right-sided nephrostomy tube in place, No tenderness to palpation, soft, non rigid, normal to inspection, exam deferred MSK: Full active range of motion in all 4 extremities, atraumatic, no tenderness to palpation of any bony prominences, patient moving bilateral lower extremities spontaneously, no tenderness to palpation of any bony prominences neurovascularly intact Skin: No rashes or lesions noted Neuro: Alert awake oriented x3, moves all 4 extremities spontaneously, cranial nerves intact, able to answer all questions appropriately follows commands appropriately Psych: Cooperative, negative suicidal or homicidal ideations Initial Vital Signs Initial Vital Signs: Vital Signs Pulse Rate 77 12/07/24 23:47 Blood Pressure 113/58 L 12/07/24 23:47 Pulse Oximetry 93 12/07/24 23:47 Course Orders Ordered: Discontinued Medications Diazepam (Diazepam 2 Mg Tablet) 2 mg PO NOW ONE Stop: 12/07/24 23:51 Last Admin: 12/07/24 23:59 Dose: 2 mg Documented By: NBA Hydromorphone HCl (Hydromorphone 2 Mg Tablet) 1 mg PO NOW ONE Stop: 12/07/24 23:53 Last Admin: 12/07/24 23:58 Dose: 1 mg Documented By: NBA Ondansetron HCl (Ondansetron 4 Mg Odt) 4 mg SL NOW ONE Stop: 12/07/24 23:54 Last Admin: 12/07/24 23:59 Dose: 4 mg Documented By: NBA Vital Signs Vital signs: Vital Signs - 8 hr 12/07/24 23:47 12/07/24 23:47 12/07/24 23:49 Temperature 97.2 F L Pulse Rate 77 78 Respiratory Rate 18 Blood Pressure 113/58 L 113/58 L Pulse Oximetry 93 94 Oxygen Delivery Method Room Air 12/08/24 00:00 Temperature Pulse Rate 73 Respiratory Rate Blood Pressure Pulse Oximetry 92 Oxygen Delivery Method Room Air MDM - Extremity Injury (Lower) Differential Diagnosis Differential diagnosis: Likely other (Restless leg, acute on chronic pain) MDM Narrative Medical decision making narrative: Patient is a 74-year-old male with a history of diabetes, CHF, CAD with a pacemaker on warfarin, with right nephrostomy tube presenting from facility for evaluation of exacerbation of his right leg pain, he has chronic right leg pain secondary to restless leg, he states normally the medications at the facility help but states that he was given this and it did not help, he denies any trauma or falls on exam his lower extremities neurovascularly intact, there is no tenderness to palpation of any bony prominences, he has full active passive range of motion of the right lower extremity, he states he is only here for pain control. Does not want any other workup/imaging or lab work. Did give patient dose of Zofran, Dilaudid and Valium to help with his symptoms, patient states this did improve his symptoms, patient was able to stand bear weight ambulate unassisted here in the emergency department informed him to follow up with primary care in an outpatient setting, he verbalized understanding of this and agrees to being discharged home with outpatient follow up Discharge Plan Departure Patient Disposition: Home Clinical Impression: Chronic leg pain Activity Restrictions/Additional Instructions: Please follow up with your primary care doctor Please read the discharge instructions sheet carefully and bring all papers to all doctor follow-up visits, as it may contain information that your doctor may want to see. Disease processes change and evolve, if your symptoms worsen or if you develop any new symptoms that are concerning to you please return for evaluation. Your evaluation today does not show any evidence of any life-threatening/serious illnesses requiring admission to the hospital or surgery. Please follow-up with your doctor for re-evaluation in approximately 1 day. Seek immediate medical attention for any worrisome symptoms. *If you do not have a primary care provider please contact the [facility] Resource line at [phone]. They will ask some questions about your medical history and help get you set up with a doctor in the community. Prescriptions: No Action acetaminophen 325 mg Tablet 650 mg PO Q4H PRN (Reason: pain) atorvastatin 40 mg Tablet 60 mg PO BEDTIME Antacid (calcium carbonate) 215 mg calcium (500 mg) Tablet,Chewable 500 mg DAILY Rx Instructions: AM furosemide 40 mg Tablet 40 mg PO BID ferrous sulfate 325 mg (65 mg iron) Tablet 325 mg PO DAILY metoprolol succinate 25 mg Tablet Extended Release 24 Hr 12.5 mg PO DAILY Rx Instructions: Hold for SBP < 100, HR < 60 lisinopril 2.5 mg Tablet 2.5 mg PO DAILY pantoprazole [Protonix] 40 mg Tablet,Delayed Release (Dr/Ec) 40 mg PO DAILY ropinirole 1 mg Tablet 2 mg PO BID tolterodine [Detrol LA] 4 mg Capsule,Extended Release 24hr 4 mg PO DAILY sertraline [Zoloft] 50 mg Tablet 50 mg PO DAILY insulin lispro 100 unit/mL Cartridge 2 sliding scale dose SUBCUT USEASDIRECTD Patient Comments: No coverage if CBG less than 150 spironolactone 25 mg tablet 25 mg PO BID bicalutamide 50 mg tablet 50 mg PO DAILY Rx Instructions: Prostate CA ondansetron 4 mg tablet,disintegrating 8 mg PO Q6H PRN (Reason: Nausea) warfarin 6 mg Tablet 6 mg PO 6XW Qty: 0 Patient Comments: 6mg M,T,W,TH,FR,SA - 6.5mg on Sundays hydrocodone-acetaminophen 5-325 mg tablet 2 tab PO Q6H PRN (Reason: pain) Qty: 30 0RF insulin glargine 100 unit/mL Solution 13 unit SUBCUT BEDTIME potassium chloride 10 mEq Tablet Extended Release 10 meq PO DAILY allopurinol 100 mg Tablet 200 mg PO DAILY pramipexole 0.5 mg Tablet 0.5 mg PO BEDTIME warfarin 6 mg Tablet 6 mg PO SEEINSTR Patient Comments: 6.5mg on Wednesday, 6mg rest dextroamphetamine-amphetamine [Adderall XR] 10 mg Capsule,Extended Release 24hr 10 mg PO QAM gabapentin 100 mg Tablet 1,000 mg PO BEDTIME gabapentin 100 mg Tablet 500 mg PO QAM pregabalin 150 mg Capsule 150 mg PO BEDTIME gabapentin 300 mg Tablet Extended Release 24 Hr 300 mg PO DAILY Xtampza ER 9 mg Cap,Sprinkl,Er12hr(Dont Crush) 9 mg PO Q12H Rx Instructions: must administer with a meal/food Xtandi 40 mg Tablet 160 mg PO QAM Referrals: Lizbeth Schaefer ARNP [Primary Care Provider, Nursing] Stand Alone Forms: Patient Portal/API
[2024-12-07 23:49] VITALS: BP 113/58; PULSE 78; RESP 18; TEMP 36.2; O2SAT 94; BMI 32.8
[2024-12-07] MEDS: HYDROMORPHONE 2 MG TABLET 1 MG PO (23:58)
[2024-12-07] MEDS: ONDANSETRON 4 MG ODT SL (23:59)
[2024-12-07] MEDS: diazePAM 2 MG TABLET PO (23:59)
[2024-12-08] VITALS: PULSE 73; O2SAT 92
[2024-12-08 02:21] VITALS: BP 99/67; PULSE 73; RESP 16; TEMP 35.8; O2SAT 93
--- NOTE | 2024-12-08 21:43 | EKG_ITS ---
[address] [address] Test Date: 2024-12-08 Pat Name: Erick Álvarez Department: Room: Gender: Male Creative Engagement Director: RADHA NIKITA : 1950 Requested By: Order Number: [id number] Reading MD: Octaviano Brush MD Measurements Intervals [place] Rate: 69 P: 8 MO: 150 QRS: 134 QRSD: 128 T: -20 QT: 462 QTc: 495 Interpretive Statements Atrial-sensed ventricular-paced rhythm Electronically Signed On 12-10-2024 6:40:44 PDT by Octaviano Brush MD
== END 2024-12-08 02:22 | disposition home or self-care (01) ==
PROVIDERS: Emergency Provider Student in an Organized Health Care Education/Training Program; PCP Nurse Practitioner Family
DX: M79.604 Pain in right leg (principal); R07.9 Chest pain, unspecified
CPT/HCPCS: 93005; 99283

== ENCOUNTER 2024-12-08 21:25 | Emergency (ER) | payer MEDICARE, MEDICAID, SELFPAY ==
[2024-10-11 14:24] VITALS: BMI 35.8
[2024-12-08] VITALS (8 sets, daily range): BP systolic 139–161; BP diastolic 63–69; PULSE 63–70; RESP 15–26; TEMP 36.5; O2SAT 92–97
--- NOTE | 2024-12-08 21:50 | ED.GENADULT ---
HPI - General Adult General Chief complaint: Weakness Stated complaint: weak, palpitation, decreased LOC Time Seen by Provider: 12/08/24 21:46 Source: EMS Mode of arrival: EMS History of Present Illness HPI narrative: Patient is a 74-year-old male with a past medical history of diabetes, CHF, CAD with pacemaker on warfarin, right nephrostomy tube presenting for decreased mentation/altered mental status. According to medics he presents from facility stating that he was not responding, however at time of presentation here in the emergency department wanting to medics he is now opening his eyes spontaneously, additional ROS HPI limited given the fact that patient not answering questions. Related Data Home Medications ?Medication ?Instructions ?Recorded ?Confirmed acetaminophen 325 mg tablet 650 mg PO Q4H PRN pain 06/13/22 10/10/24 atorvastatin 40 mg tablet 60 mg PO BEDTIME 06/13/22 10/11/24 calcium carbonate (Antacid 500 mg DAILY 06/13/22 10/10/24 (calcium carbonate)) ferrous sulfate 325 mg (65 mg 325 mg PO DAILY 06/13/22 10/11/24 iron) tablet furosemide 40 mg tablet 40 mg PO BID 06/13/22 10/11/24 insulin lispro 100 unit/mL 2 sliding scale dose SUBCUT 06/13/22 10/11/24 subcutaneous cartridge USEASDIRECTD lisinopril 2.5 mg tablet 2.5 mg PO DAILY 06/13/22 10/11/24 metoprolol succinate 25 mg 12.5 mg PO DAILY 06/13/22 10/11/24 tablet,extended release 24 hr pantoprazole 40 mg tablet,delayed 40 mg PO DAILY 06/13/22 10/11/24 release (Protonix) ropinirole 1 mg tablet 2 mg PO BID 06/13/22 10/11/24 sertraline 50 mg tablet (Zoloft) 50 mg PO DAILY 06/13/22 10/11/24 tolterodine 4 mg capsule,extended 4 mg PO DAILY 06/13/22 10/11/24 release 24 hr (Detrol LA) bicalutamide 50 mg tablet 50 mg PO DAILY 12/14/22 10/11/24 ondansetron 4 mg disintegrating 8 mg PO Q6H PRN Nausea 12/14/22 10/10/24 tablet spironolactone 25 mg tablet 25 mg PO BID 12/14/22 10/11/24 warfarin 6 mg tablet 6 mg PO 6XW ##0 11/22/23 10/10/24 allopurinol 100 mg tablet 200 mg PO DAILY 10/10/24 10/11/24 dextroamphetamine-amphetamine ER 10 mg PO QAM 10/10/24 10/11/24 10 mg 24hr capsule,extend release (Adderall XR) enzalutamide 40 mg tablet (Xtandi) 160 mg PO QAM Cancer treatment 10/10/24 10/11/24 gabapentin 100 mg tablet 1,000 mg PO BEDTIME 10/10/24 10/11/24 gabapentin 100 mg tablet 500 mg PO QAM 10/10/24 10/11/24 gabapentin 300 mg tablet,extended 300 mg PO DAILY 10/10/24 10/10/24 release 24 hr insulin glargine 100 unit/mL 13 unit SUBCUT BEDTIME 10/10/24 10/11/24 subcutaneous solution oxycodone myristate 9 mg capsule 9 mg PO Q12H Pain 10/10/24 10/11/24 sprinkle extended release 12 hr(DON'T CRUSH) (Xtampza ER) potassium chloride 10 mEq 10 meq PO DAILY 10/10/24 10/11/24 tablet,extended release pramipexole 0.5 mg tablet 0.5 mg PO BEDTIME 10/10/24 10/11/24 pregabalin 150 mg capsule 150 mg PO BEDTIME 10/10/24 10/11/24 warfarin 6 mg tablet 6 mg PO SEEINSTR 10/10/24 10/10/24 Previous Rx's ?Medication ?Instructions ?Recorded hydrocodone 5 mg-acetaminophen 325 2 tab PO Q6H PRN pain #30 tabs 08/16/23 mg tablet sulfamethoxazole 800 1 tab PO BID 3 days #6 tabs 12/08/24 mg-trimethoprim 160 mg tablet (Bactrim DS) Allergies Allergy/AdvReac Type Severity Reaction Status Date / Time crab Allergy Severe Deathly Verified 12/07/24 23:49 sick aspartame Allergy Unknown Verified 12/07/24 23:49 carbidopa Allergy Hallucinations, Verified 12/07/24 23:49 anxiety morphine AdvReac Nausea/vomi Verified 12/07/24 23:49 ting Review of Systems Review of Systems ROS Unobtainable: Unobtainable due to mental status/LOC Patient History Medical History Cardiomyopathy DVT (deep venous thrombosis) History of left heart catheterization (12/2019) Atrial fibrillation Paroxysmal A-fib RBBB LAFB (left anterior fascicular block) First degree AV block History of transcatheter aortic valve replacement (TAVR) (08/01/18) Sleep apnea CAD (coronary artery disease) Stress incontinence Enlarged lymph node Chronic anticoagulation Androgen deprivation therapy Stress incontinence, male History of radiation therapy Hydronephrosis, right Prostate cancer Osteoarthritis Hypertension Gout Depression History of prostate cancer Arthritis GERD (gastroesophageal reflux disease) Diabetes Congestive heart failure Pacemaker Surgical History H/O insertion of nephrostomy tube AICD (automatic cardioverter/defibrillator) present (12/30/20) Hx of heart artery stent History of back surgery H/O aortic valve replacement Family History Mother Coronary artery disease involving bypass graft of transplanted heart Cancer Hypertension Social History marital status: number of children: 3 household members: none Previous occupational history: retired alcohol intake: former caffeine: Yes tobacco type: cigarettes alcohol intake frequency: 0-2 drinks per day Exam Narrative Exam Narrative: General: well-developed, not in acute distress HEENT: Normocephalic, atraumatic, PERRLA, normal sclera, eyelids normal Neck: Active full range of motion, atraumatic Chest: Normal to inspection, negative crepitus, no overlying erythema ecchymosis Respiratory: Normal respiratory effort, not in acute respiratory distress, clear to auscultation bilaterally negative cough, wheeze, tachypnea, rhonchi, rales Cardiology: Regular rate rhythm negative gallop, murmur, rubs GI/: Right-sided nephrostomy tube in place, No tenderness to palpation, soft, non rigid, normal to inspection, exam deferred MSK: Full active range of motion in all 4 extremities, atraumatic, no tenderness to palpation of any bony prominences Skin: No rashes or lesions noted Neuro: Opens eyes spontaneously, does appear to move all 4 extremities spontaneously, lethargic Psych: Cooperative, negative suicidal or homicidal ideations Initial Vital Signs Initial Vital Signs: Vital Signs Pulse Rate 70 12/08/24 21:29 Pulse Oximetry 94 12/08/24 21:29 Course Orders Ordered: ED Orders 12/08/24 21:31 CBC Auto Diff [Complete Blood Count AUTO DIFF] Stat CMP [Comprehensive Metabolic Panel] Stat Lipase Stat MAG [Magnesium] Stat Troponin & CK Cardiac Panel Stat 12/08/24 22:10 Urinalysis and Microscopic Stat Urine Culture Stat 12/08/24 22:12 CT head/brain wo con Stat 12/08/24 22:13 CXR [XR chest 1V] Stat Trimethoprim/Sulfamethoxazole (Trimeth/Sulfa 160/800 (Ds) Tablet) 1 tab PO NOW ONE Stop: 12/08/24 22:49 Discontinued Medications Naloxone HCl (Naloxone 1 Mg/Ml Syringe) 2 mg IV NOW ONE Stop: 12/08/24 21:49 Last Admin: 12/08/24 22:13 Dose: Not Given Documented By: URMILA Ondansetron HCl (Ondansetron 4 Mg/2 Ml Inj) 4 mg IV NOW ONE Stop: 12/08/24 21:47 Last Admin: 12/08/24 22:01 Dose: 4 mg Documented By: URMILA Vital Signs Vital signs: Vital Signs - 8 hr 12/08/24 21:29 12/08/24 21:30 12/08/24 21:30 Temperature Pulse Rate 70 68 Respiratory Rate Blood Pressure 161/69 H Pulse Oximetry 94 95 Oxygen Delivery Method 12/08/24 21:38 12/08/24 22:00 12/08/24 22:01 Temperature 97.7 F Pulse Rate 67 66 Respiratory Rate 22 17 Blood Pressure 161/69 H 139/63 Pulse Oximetry 95 92 Oxygen Delivery Method Room Air 12/08/24 22:01 Temperature Pulse Rate 66 Respiratory Rate 15 Blood Pressure Pulse Oximetry 92 Oxygen Delivery Method Medical Decision Making Lab Data 12/08/24 21:31 12/08/24 21:31 Labs: Lab Results 12/08/24 12/08/24 Range/Units 21:31 22:10 WBC 8.1 (4.5-11.0) X10^3/uL RBC 3.86 L (4.5-5.9) X10^6/uL Hgb 10.5 L (13.5-17.5) g/dL Hct 32.3 L (41-53) % MCV 83.6 (80-100) fL MCH 27.2 (26-34) PG MCHC 32.6 (30-36) % RDW 20.5 H (11.6-14.8) % Plt Count 166 (150-400) X10^3/uL Neut % (Auto) 73.1 (50-75) % Lymph % (Auto) 16.3 L (25-40) % [place] % (Auto) 8.1 (3-14) % Eos % (Auto) 1.8 L (2-4) % Baso % (Auto) 0.7 (0-2) % Neut # (Auto) 5900 (2514-4266) /uL Lymph # (Auto) 1300 (4323-0930) /uL [place] # (Auto) 700 (0-900) /uL Eos # (Auto) 100 (0-450) /uL Baso # (Auto) 100 (0-100) /uL RBC Morphology See below Anisocytosis 1+ H Sodium 136 L (137-145) mmol/L Potassium 4.3 (3.4-5.1) mmol/L Chloride 101 (98-107) mmol/L Carbon Dioxide 27 (22-32) mmol/L BUN 30 H (9-20) mg/dL Creatinine 1.57 H (0.66-1.25) mg/dL Estimated GFR 45 L (>60) mL/min BUN/Creatinine Ratio 19.1 (6-22) Glucose 131 H (70-99) mg/dL Calcium 9.0 (8.4-10.2) mg/dL Magnesium 2.0 (1.6-2.3) mg/dL Total Bilirubin 0.3 (0.2-1.3) mg/dL AST 22 (17-59) IU/L ALT 15 (<50) IU/L Alkaline Phosphatase 80 (38-126) U/L Total Creatine Kinase 37 L (55-170) U/L Troponin I < 0.012 (0.01-0.034) ng/mL Total Protein 6.6 (6.3-8.2) g/dL Albumin 3.8 (3.5-5.0) g/dL Globulin 2.8 (1.7-4.1) g/dL Albumin/Globulin Ratio 1.4 (1.0-2.8) Lipase 79 (23-300) U/L Urine Color Yellow Urine Appearance Sl cloudy Urine pH 8.0 (4.5-8.0) Ur Specific [place] 1.010 (1.000-1.035) Urine Protein 2+ H (Negative) Urine Glucose (UA) 1+ H (Negative) g/dL Urine Ketones Negative (NEGATIVE) Urine Occult Blood 2+ H (Negative) Urine Nitrate Negative (Negative) Urine Bilirubin Negative (NEGATIVE) Urine Urobilinogen 0.2 (0.2) E.U./dL Ur Leukocyte Esterase 3+ H (NEGATIVE) Urine RBC 10-30/hpf H (0-5/HPF) Urine WBC >100/hpf H (0-5/HPF) Ur Squamous Epith Cells 0-1 /hpf (0-5/HPF) Urine Bacteria Many (>30) H (None) Urine Mucus 1+ H (Negative) Ur Culture Indicated? Specimen cultured Vol Urine Centrifuged 10ml (spun) MDM Narrative Medical decision making narrative: Patient is a 74-year-old male with a past medical history of hyperlipidemia, CAD status post pacemaker, diabetes, hypertension, chronic right leg pain, presenting from facility for decreased mentation. According to medics patient was not responding to stimuli, however at time of evaluation patient is spontaneously opening eyes, moving all 4 extremities spontaneously. I did see this patient yesterday for increasing right lower extremity pain, therefore will attempt IV Narcan and obtain lab work imaging to rule out any acute findings. Troponin negative, EKG nonischemic, CT scan of the head without any acute findings, symptoms more likely secondary to over-sedation for his chronic right leg pain therefore we will hold off on any additional opiate or sedating drugs, Ofirmev ordered. Urinalysis was consistent with possible urinary tract infection, however also possible colonization given patient with nephrostomy tube however given patient with transient altered awareness we will treat with a short course of antibiotic. Patient was given strict return precautions he verbalized understanding of this and agrees to being discharged home with outpatient follow up 2215: Patient now awake alert answering questions appropriately, did not give IV Narcan we will hold off at this time he states that he is not having any issues/symptoms just complaining of his chronic right leg pain. 2230: Patient now completely awake back to baseline, he states that he is still having some pain to his right leg, states that he is not complaining of any headache visual disturbances chest pain shortness breath fever chills nausea vomiting abdominal pain or any other GI/ symptoms. States that he has been taking more of pain medication given his right leg pain. Discharge Plan Departure Patient Disposition: Home Clinical Impression: Altered awareness, transient, Acute UTI Activity Restrictions/Additional Instructions: Please follow up with your primary care doctor Please read the discharge instructions sheet carefully and bring all papers to all doctor follow-up visits, as it may contain information that your doctor may want to see. Disease processes change and evolve, if your symptoms worsen or if you develop any new symptoms that are concerning to you please return for evaluation. Your evaluation today does not show any evidence of any life-threatening/serious illnesses requiring admission to the hospital or surgery. Please follow-up with your doctor for re-evaluation in approximately 1 day. Seek immediate medical attention for any worrisome symptoms. *If you do not have a primary care provider please contact the [facility] Resource line at [phone]. They will ask some questions about your medical history and help get you set up with a doctor in the community. Prescriptions: New sulfamethoxazole-trimethoprim [Bactrim DS] 800-160 mg tablet 1 tab PO BID 3 Days Qty: 6 0RF No Action acetaminophen 325 mg Tablet 650 mg PO Q4H PRN (Reason: pain) atorvastatin 40 mg Tablet 60 mg PO BEDTIME Antacid (calcium carbonate) 215 mg calcium (500 mg) Tablet,Chewable 500 mg DAILY Rx Instructions: AM furosemide 40 mg Tablet 40 mg PO BID ferrous sulfate 325 mg (65 mg iron) Tablet 325 mg PO DAILY metoprolol succinate 25 mg Tablet Extended Release 24 Hr 12.5 mg PO DAILY Rx Instructions: Hold for SBP < 100, HR < 60 lisinopril 2.5 mg Tablet 2.5 mg PO DAILY pantoprazole [Protonix] 40 mg Tablet,Delayed Release (Dr/Ec) 40 mg PO DAILY ropinirole 1 mg Tablet 2 mg PO BID tolterodine [Detrol LA] 4 mg Capsule,Extended Release 24hr 4 mg PO DAILY sertraline [Zoloft] 50 mg Tablet 50 mg PO DAILY insulin lispro 100 unit/mL Cartridge 2 sliding scale dose SUBCUT USEASDIRECTD Patient Comments: No coverage if CBG less than 150 spironolactone 25 mg tablet 25 mg PO BID bicalutamide 50 mg tablet 50 mg PO DAILY Rx Instructions: Prostate CA ondansetron 4 mg tablet,disintegrating 8 mg PO Q6H PRN (Reason: Nausea) warfarin 6 mg Tablet 6 mg PO 6XW Qty: 0 Patient Comments: 6mg M,T,W,TH,FR,SA - 6.5mg on Sundays hydrocodone-acetaminophen 5-325 mg tablet 2 tab PO Q6H PRN (Reason: pain) Qty: 30 0RF insulin glargine 100 unit/mL Solution 13 unit SUBCUT BEDTIME potassium chloride 10 mEq Tablet Extended Release 10 meq PO DAILY allopurinol 100 mg Tablet 200 mg PO DAILY pramipexole 0.5 mg Tablet 0.5 mg PO BEDTIME warfarin 6 mg Tablet 6 mg PO SEEINSTR Patient Comments: 6.5mg on Wednesday, 6mg rest dextroamphetamine-amphetamine [Adderall XR] 10 mg Capsule,Extended Release 24hr 10 mg PO QAM gabapentin 100 mg Tablet 1,000 mg PO BEDTIME gabapentin 100 mg Tablet 500 mg PO QAM pregabalin 150 mg Capsule 150 mg PO BEDTIME gabapentin 300 mg Tablet Extended Release 24 Hr 300 mg PO DAILY Xtampza ER 9 mg Cap,Sprinkl,Er12hr(Dont Crush) 9 mg PO Q12H Rx Instructions: must administer with a meal/food Xtandi 40 mg Tablet 160 mg PO QAM Referrals: Lizbeth Schaefer ARNP [Primary Care Provider, Nursing] Stand Alone Forms: Patient Portal/API
[2024-12-08 21:59] LABS: Add Manual Diff / Slide Review NO; Basophils Absolute Auto 100 /uL (0-100); Basophils Percent Auto 0.7 % (0-2); Eosinophils Absolute Auto 100 /uL (0-450); Eosinophils Percent Auto 1.8 % (2-4); Hematocrit 32.3 % (41-53); Hemoglobin 10.5 g/dL (13.5-17.5); Lymphocytes Absolute Auto 1300 /uL (1100-4500); Lymphocytes Percent Auto 16.3 % (25-40); Mean Corpuscular HGB Conc 32.6 % (30-36); Mean Corpuscular Hemoglobin 27.2 PG (26-34); Mean Corpuscular Volume 83.6 fL (80-100); Monocytes Absolute Auto 700 /uL (0-900); Monocytes Percent Auto 8.1 % (3-14); Neutrophils Absolute Auto 5900 /uL (1500-7000); Neutrophils Percent Auto 73.1 % (50-75); Platelet Count 166 X10^3/uL (150-400); Red Blood Cell Count 3.86 X10^6/uL (4.5-5.9); Red Cell Distribution Width 20.5 % (11.6-14.8); White Blood Cell Count 8.1 X10^3/uL (4.5-11.0)
[2024-12-08] MEDS: ONDANSETRON 4 MG/2 ML INJ IV (22:01)
[2024-12-08 22:04] LABS: Alanine Aminotransferase 15 IU/L (<50); Albumin 3.8 g/dL (3.5-5.0); Albumin Globulin Ratio 1.4 (1.0-2.8); Alkaline Phosphatase 80 U/L (38-126); Aspartate Aminotransferase 22 IU/L (17-59); BUN Creatinine Ratio 19.1 (6-22); Bilirubin Total 0.3 mg/dL (0.2-1.3); Blood Urea Nitrogen 30 mg/dL (9-20); Carbon Dioxide 27 mmol/L (22-32); Chloride 101 mmol/L (98-107); Estimated Glomerular Filt Rate 45 mL/min (>60); Globulin 2.8 g/dL (1.7-4.1); Glucose 131 mg/dL (70-99); HEMOLYSIS < 15 (0-50); Potassium 4.3 mmol/L (3.4-5.1); Sodium 136 mmol/L (137-145); Total Protein 6.6 g/dL (6.3-8.2)
--- NOTE | 2024-12-08 22:12 | DI.CT.S_ITS ---
PROCEDURE: CT HEAD/BRAIN WO CON INDICATIONS: ams, weakness, DLOC TECHNIQUE: Noncontrast 4.5 mm thick angled axial sections acquired from the foramen magnum to the vertex, with coronal and sagittal reformats. For radiation dose reduction, the following was used: automated exposure control, adjustment of mA and/or kV according to patient size. COMPARISON: [facility], CT, CT HEAD/BRAIN WO CON, 09/13/2024, 10:48. [facility], CT, CT HEAD/BRAIN WO CON, 02/04/2023, 7:43. FINDINGS: Image quality: Diagnostic. CSF spaces: Basal cisterns are patent. No extra-axial fluid collections. The ventricles are symmetric in size and shape. Brain: No intracranial bleeds or mass effect. There is cerebral volume loss, with resultant ventricular and sulcal prominence. There are periventricular and deep white matter chronic small vessel ischemic changes. There is intracranial internal carotid artery atherosclerosis. Skull and face: Calvarium and visualized facial bones appear intact, without suspicious lesions. Sinuses: Bilateral maxillary sinus mucosal thickening. Remainder of the paranasal sinuses appear clear. Mastoid air cells are well-aerated. IMPRESSION: 1. CT head without acute intracranial abnormalities or acute calvarial fractures. 2. Age-related senescent changes and sequela of chronic small vessel ischemic disease. Dictated by: Shane Luque M.D. on 12/08/2024 at 22:32 Approved by: Shane Luque M.D. on 12/08/2024 at 22:34
--- NOTE | 2024-12-08 22:13 | DI.RAD.S_ITS ---
PROCEDURE: XR CHEST 1V INDICATIONS: ams, weakness, DLOC TECHNIQUE: One view of the chest was acquired. COMPARISON: [facility], CR, XR CHEST 1V, 09/03/2024, 22:34. FINDINGS: Surgical changes and devices: Left-sided cardiac pacer device is in place. TAVR Lungs and pleura: Lungs are clear. No pleural effusions or pneumothorax. Mediastinum: Mediastinal contours appear normal. Heart size is enlarged. Bones and chest wall: No suspicious bony lesions. Overlying soft tissues appear unremarkable. IMPRESSION: Cardiomegaly. No acute cardiopulmonary abnormality seen. Dictated by: Shane Luque M.D. on 12/08/2024 at 22:31 Approved by: Shane Luque M.D. on 12/08/2024 at 22:32
[2024-12-08 22:24] LABS: Appearance Urine UA SL CLOUDY; Bilirubin Urine UA NEGATIVE (NEGATIVE); Color Urine UA YELLOW; Glucose Urine UA 1+ g/dL (Negative); Ketones Urine UA NEGATIVE (NEGATIVE); Leukocyte Esterase Urine UA 3+ (NEGATIVE); Nitrite Urine UA NEGATIVE (Negative); Occult Blood Urine UA 2+ (Negative); Protein Urine UA 2+ (Negative); Urobilinogen Urine UA 0.2 E.U./dL (0.2)
[2024-12-08 22:26] LABS: Anisocytosis 1+; Creatine Kinase 37 U/L (55-170); Lipase 79 U/L (23-300)
[2024-12-08 22:38] LABS: RBC Urine 10-30/HPF (0-5/HPF); Urine Volume 10mL (spun); WBC Urine >100/HPF (0-5/HPF)
[2024-12-08 22:38] LABS: Troponin I < 0.012 ng/mL (0.01-0.034)
[2024-12-08 22:39] LABS: Bacteria Urine Many (>30); Culture Indicated Urine Specimen Cultured; Mucus Urine 1+ (Negative); Squamous Epithelial Cell Urine 0-1 /HPF (0-5/HPF)
[2024-12-08] MEDS: ACETAMINOPHEN IV 1,000 MG/100 ML VIAL 400 MG IV (22:58)
[2024-12-08] MEDS: TRIMETH/SULFA 160/800 (DS) TABLET 1 TAB PO (22:59)
[2024-12-09] VITALS: PULSE 60; RESP 14; O2SAT 96
[2024-12-09 00:30] VITALS: PULSE 60; RESP 15; O2SAT 98
[2024-12-09 00:36] VITALS: PULSE 60; RESP 15
[2024-12-09 00:38] VITALS: BP 141/65
== END 2024-12-09 00:45 | disposition home or self-care (01) ==
PROVIDERS: Emergency Provider Student in an Organized Health Care Education/Training Program; PCP Nurse Practitioner Family
DX: R40.4 Transient alteration of awareness (principal); N39.0 Urinary tract infection, site not specified; M79.604 Pain in right leg; Z93.6 Other artificial openings of urinary tract status
CPT/HCPCS: 36415; 70450; 71045; 80053; 81001; 82550; 83690; 83735; 84484; 85025; 87077; 87086; 87186; 93010; 96374; 96375; 99284; J0131; J2405

== ENCOUNTER → 2024-12-13 07:34 | Outpatient (ROUT) | payer MEDICARE, MEDICAID, SELFPAY ==
[2024-10-11 14:24] VITALS: BMI 35.8
[2024-12-13 08:14] LABS: INR 1.9 (0.9-1.3); Prothrombin Time 21.3 SECONDS (9.4-12.5)
== END ==
PROVIDERS: PCP Nurse Practitioner Family; Visit Provider Registered Nurse
DX: I48.91 Unspecified atrial fibrillation (principal); Z79.01 Long term (current) use of anticoagulants
CPT/HCPCS: 36415; 85610

== ENCOUNTER → 2024-12-20 06:07 | Outpatient (ROUT) | payer MEDICARE, MEDICAID, SELFPAY ==
[2024-10-11 14:24] VITALS: BMI 35.8
[2024-12-20 08:08] LABS: INR 1.6 (0.9-1.3); Prothrombin Time 17.4 SECONDS (9.4-12.5)
== END ==
PROVIDERS: Registered Nurse; PCP Nurse Practitioner Family
DX: I48.91 Unspecified atrial fibrillation (principal); Z79.01 Long term (current) use of anticoagulants
CPT/HCPCS: 36415; 85610

== ENCOUNTER → 2024-12-27 07:25 | Outpatient (ROUT) | payer MEDICARE, MEDICAID, SELFPAY ==
[2024-10-11 14:24] VITALS: BMI 35.8
[2024-12-27 07:53] LABS: INR 1.6 (0.9-1.3); Prothrombin Time 17.5 SECONDS (9.4-12.5)
== END ==
PROVIDERS: PCP Nurse Practitioner Family; Visit Provider Registered Nurse
DX: I48.91 Unspecified atrial fibrillation (principal)
CPT/HCPCS: 36415; 85610

== ENCOUNTER → 2025-01-03 10:50 | Outpatient (ROUT) | payer MEDICARE, MEDICAID, SELFPAY ==
[2024-10-11 14:24] VITALS: BMI 35.8
[2025-01-03 11:03] LABS: INR 2.0 (0.9-1.3); Prothrombin Time 22.6 SECONDS (9.4-12.5)
== END ==
PROVIDERS: PCP Nurse Practitioner Family; Visit Provider Registered Nurse
DX: I48.91 Unspecified atrial fibrillation (principal)
CPT/HCPCS: 85610

== ENCOUNTER → 2025-01-10 08:59 | Outpatient (ROUT) | payer MEDICARE, MEDICAID, SELFPAY ==
[2024-10-11 14:24] VITALS: BMI 35.8
[2025-01-10 09:47] LABS: INR 2.1 (0.9-1.3); Prothrombin Time 23.6 SECONDS (9.4-12.5)
[2025-01-10 09:50] LABS: PTT Partial Thromboplastin Tim 47 SECONDS (25.1-36.5)
== END ==
PROVIDERS: PCP Nurse Practitioner Family; Visit Provider Registered Nurse
DX: I48.91 Unspecified atrial fibrillation (principal)
CPT/HCPCS: 36415; 85610; 85730

== ENCOUNTER 2025-01-15 17:39 | Inpatient (IN) | payer MEDICARE, MEDICAID, SELFPAY ==
[2024-10-11 14:24] VITALS: BMI 35.8
[2025-01-15] VITALS (21 sets, daily range): BP systolic 89–144; BP diastolic 48–69; PULSE 60–88; RESP 15–82; TEMP 37.3; O2SAT 92–98; BMI 33.4
--- NOTE | 2025-01-15 17:48 | EKG_ITS ---
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
--- NOTE | 2025-01-15 18:02 | DI.RAD.S_ITS ---
PROCEDURE: XR CHEST 1V INDICATIONS: chest pain TECHNIQUE: One view of the chest was acquired. COMPARISON: [facility], CR, XR CHEST 1V, 12/08/2024, 22:09. FINDINGS: Surgical changes and devices: Left chest wall AICD device with cardiac leads. TAVR. Lungs and pleura: Low lung volumes. No pleural effusions or pneumothorax. Mediastinum: Mediastinal contours appear normal. Heart size is enlarged. Bones and chest wall: No suspicious bony lesions. Overlying soft tissues appear unremarkable. IMPRESSION: Cardiomegaly. No focal dense airspace consolidation. Approved by: Carmen Biggs M.D.,Ph.D. on 01/15/2025 at 18:45
--- NOTE | 2025-01-15 18:11 | ED.SOB ---
HPI - SOB/Dyspnea General Chief Complaint: Shortness of Breath/Dyspnea Stated Complaint: + covid/AFIB Time Seen by Provider: 01/15/25 18:02 Source: patient and EMS Mode of arrival: EMS History of Present Illness HPI Narrative: 74-year-old male 5 year resident at [facility], history of AVR, warfarin chronic anticoagulation, CHF, CAD, prior pneumonia, diabetes, pacemaker, history of UTI, not usually on home oxygen. Has 4 days duration of cough with increasing shortness of breath today. Swab done at the senior care 2 days ago was positive for COVID. Increasing shortness of breath since that time. Transport by EMS on oxygen for low saturations. Denies chest pain. MD Complaint: shortness of breath Related Data Home Medications ?Medication ?Instructions ?Recorded ?Confirmed acetaminophen 325 mg tablet 650 mg PO Q4H PRN pain 06/13/22 01/16/25 atorvastatin 40 mg tablet 60 mg PO BEDTIME 06/13/22 01/16/25 calcium carbonate (Antacid 500 mg DAILY 06/13/22 10/10/24 (calcium carbonate)) ferrous sulfate 325 mg (65 mg 325 mg PO DAILY 06/13/22 01/16/25 iron) tablet furosemide 40 mg tablet 40 mg PO BID 06/13/22 01/16/25 insulin lispro 100 unit/mL 2 sliding scale dose SUBCUT 06/13/22 01/16/25 subcutaneous cartridge USEASDIRECTD lisinopril 2.5 mg tablet 2.5 mg PO DAILY 06/13/22 01/16/25 metoprolol succinate 25 mg 12.5 mg PO DAILY 06/13/22 01/16/25 tablet,extended release 24 hr pantoprazole 40 mg tablet,delayed 40 mg PO DAILY 06/13/22 01/16/25 release (Protonix) ropinirole 1 mg tablet 2 mg PO BID 06/13/22 01/16/25 sertraline 50 mg tablet (Zoloft) 50 mg PO DAILY 06/13/22 01/16/25 tolterodine 4 mg capsule,extended 4 mg PO DAILY 06/13/22 01/16/25 release 24 hr (Detrol LA) bicalutamide 50 mg tablet 50 mg PO DAILY 12/14/22 10/11/24 ondansetron 4 mg disintegrating 4 mg PO Q6H PRN Nausea 12/14/22 01/16/25 tablet spironolactone 25 mg tablet 25 mg PO DAILY 12/14/22 01/16/25 warfarin 6 mg tablet 6 mg PO 6XW ##0 11/22/23 10/10/24 allopurinol 100 mg tablet 200 mg PO DAILY 10/10/24 01/16/25 dextroamphetamine-amphetamine ER 10 mg PO QAM 10/10/24 01/16/25 10 mg 24hr capsule,extend release (Adderall XR) enzalutamide 40 mg tablet (Xtandi) 160 mg PO QAM Cancer treatment 10/10/24 10/11/24 gabapentin 100 mg tablet 1,000 mg PO BEDTIME 10/10/24 01/16/25 gabapentin 100 mg tablet 600 mg PO QAM 10/10/24 01/16/25 gabapentin 300 mg tablet,extended 300 mg PO DAILY 10/10/24 01/16/25 release 24 hr insulin glargine 100 unit/mL 13 unit SUBCUT BEDTIME 10/10/24 10/11/24 subcutaneous solution oxycodone myristate 9 mg capsule 9 mg PO Q12H Pain 10/10/24 01/16/25 sprinkle extended release 12 hr(DON'T CRUSH) (Xtampza ER) potassium chloride 10 mEq 10 meq PO DAILY 10/10/24 01/16/25 tablet,extended release pramipexole 0.5 mg tablet 0.5 mg PO BEDTIME 10/10/24 01/16/25 pregabalin 150 mg capsule 150 mg PO BEDTIME 10/10/24 01/16/25 warfarin 6 mg tablet 6 mg PO SEEINSTR 10/10/24 10/10/24 enzalutamide 40 mg capsule (Xtandi) 160 mg PO DAILY 01/16/25 01/16/25 melatonin 10 mg capsule 10 mg PO BEDTIME insomnia 01/16/25 01/16/25 warfarin 4 mg tablet 8 mg PO .every evening a fib 01/16/25 01/16/25 Previous Rx's ?Medication ?Instructions ?Recorded hydrocodone 5 mg-acetaminophen 325 2 tab PO Q6H PRN pain #30 tabs 08/16/23 mg tablet Allergies Allergy/AdvReac Type Severity Reaction Status Date / Time crab Allergy Severe Deathly Verified 12/07/24 23:49 sick aspartame Allergy Unknown Verified 12/07/24 23:49 carbidopa Allergy Hallucinations, Verified 12/07/24 23:49 anxiety morphine AdvReac Nausea/vomi Verified 12/07/24 23:49 ting Patient History Medical History Cardiomyopathy DVT (deep venous thrombosis) History of left heart catheterization (12/2019) Atrial fibrillation Paroxysmal A-fib RBBB LAFB (left anterior fascicular block) First degree AV block History of transcatheter aortic valve replacement (TAVR) (08/01/18) Sleep apnea CAD (coronary artery disease) Stress incontinence Enlarged lymph node Chronic anticoagulation Androgen deprivation therapy Stress incontinence, male History of radiation therapy Hydronephrosis, right Prostate cancer Osteoarthritis Hypertension Gout Depression History of prostate cancer Arthritis GERD (gastroesophageal reflux disease) Diabetes Congestive heart failure Pacemaker Surgical History H/O insertion of nephrostomy tube AICD (automatic cardioverter/defibrillator) present (12/30/20) Hx of heart artery stent History of back surgery H/O aortic valve replacement Family History Mother Coronary artery disease involving bypass graft of transplanted heart Cancer Hypertension Social History marital status: number of children: 3 household members: none Previous occupational history: retired alcohol intake: former caffeine: Yes tobacco type: cigarettes alcohol intake frequency: 0-2 drinks per day Exam Narrative Exam Narrative: GENERAL: Well-developed patient, in mild distress. HEAD: Atraumatic. Normocephalic. EYES: Pupils equal round and reactive. Extraocular motions intact. No scleral icterus. No injection or drainage. ENT: Nose without bleeding, purulent drainage. Throat without erythema, tonsillar hypertrophy or exudate. Airway patent. High-flow nasal cannula in place. NECK: Trachea midline. Moves neck well. CARDIOVASCULAR: Regular rate and rhythm without murmurs, gallops, or rubs. RESPIRATORY: Clear to auscultation. Breath sounds equal bilaterally. Bibasilar rhonchi, no wheeze obvious. Some suprasternal and intercostal retractions mild. GASTROINTESTINAL: Abdomen soft, non-tender, nondistended. EXTREMITIES: No edema or joint tenderness. BACK: Nontender without deformity or crepitance. No flank tenderness. NEURO: AOx3. Motor functions grossly nonfocal. SKIN: No rash or erythema of visible areas Initial Vital Signs Initial Vital Signs: Vital Signs Temperature 99.1 F 01/15/25 17:40 Pulse Rate 82 01/15/25 17:40 Respiratory Rate 82 H 01/15/25 17:40 Blood Pressure 144/69 H 01/15/25 17:40 Pulse Oximetry 98 01/15/25 17:40 Oxygen Delivery Method Non -Rebreather 01/15/25 17:40 Course Orders Ordered: ED Orders 01/15/25 18:45 Blood Culture Stat 01/15/25 19:38 Covid-19 + FLU A/B + RSV - PCR Stat Troponin I Stat Acetaminophen (Acetaminophen 325 Mg Tablet) 650 mg PO Q4H PRN PRN Reason: pain Hydrocodone Bitart/Acetaminophen (Hydrocodone/Acet 5/325 Tablet) 2 tab PO Q6H PRN PRN Reason: pain Albuterol (Albuterol 2.5 Mg/3 Ml Neb (Adult)) 2.5 mg INH [id number] PRN PRN Reason: Dyspnea Allopurinol (Allopurinol 100 Mg Tablet) 200 mg PO DAILY ANNAMARIE Atorvastatin Calcium (Atorvastatin 20 Mg Tablet) 60 mg PO BEDTIME ANNAMARIE Benzocaine (Benzocaine/Menthol 1 Venecia Pkt) 1 each PO Q4HR PRN PRN Reason: Sore Throat Benzonatate (Benzonatate 100 Mg Capsule) 100 mg PO TID PRN PRN Reason: Cough Bicalutamide (Bicalutamide 50 Mg Tablet) 50 mg PO DAILY ANNAMARIE Calcium Carbonate (Calcium Carbonate 500 Mg Tab) 500 mg PO DAILY ANNAMARIE Dexamethasone (Dexamethasone 1 Mg Tablet) 6 mg PO DAILY ANNAMARIE Docusate Sodium (Docusate 100 Mg Capsule) 100 mg PO BID ANNAMARIE Ferrous Sulfate (Ferrous Sulfate 325 Mg Tablet) 325 mg PO DAILY ANNAMARIE Furosemide (Furosemide 40 Mg Tablet) 40 mg PO BID ANNAMARIE Hydromorphone HCl (Hydromorphone Hcl 0.5 Mg/0.5 Ml Syringe) 0.5 mg IV Q2H PRN PRN Reason: Pain, Severe (7-10) Remdesivir 100 mg/ Sodium (Chloride) 250 mls @ 250 mls/hr IV DAILY ANNAMARIE Stop: 01/19/25 09:59 Azithromycin 500 mg/ Dextrose 250 mls @ 250 mls/hr IV Q24H [facility] Insulin Glargine (Insulin Glargine 100 Unit/Ml 3ml Pen) 13 unit SUBCUT BEDTIME [facility] Melatonin (Melatonin 3 Mg Tablet) 9 mg PO BEDTIME PRN PRN Reason: insomnia Metoprolol Succinate (Metoprolol Er 25 Mg Tablet) 12.5 mg PO DAILY [facility] Naloxone HCl (Naloxone 0.4 Mg/Ml Vial) 0.2 mg IV Q2MIN PRN PRN Reason: Opiate Reversal Non-Formulary Medication (Dextroamphetamine-Amphetamine [Adderall Xr]) 10 mg PO QAM [facility] Non-Formulary Medication (Enzalutamide [Xtandi]) 160 mg PO QAM [facility] Non-Formulary Medication (Gabapentin) 1,000 mg PO BEDTIME [facility] Non-Formulary Medication (Gabapentin) 300 mg PO DAILY [facility] Non-Formulary Medication (Insulin Lispro) 2 sliding scale dose SUBCUT USEASDIRECTD [facility] Non-Formulary Medication (Warfarin) 6 mg PO 6XW ANNAMARIE Non-Formulary Medication (Warfarin) 6 mg PO SEEINSTR [facility] Non-Formulary Medication (Tolterodine [Detrol La]) 4 mg PO DAILY [facility] Ondansetron HCl (Ondansetron 4 Mg Odt) 8 mg PO Q6H PRN PRN Reason: Nausea Ondansetron HCl (Ondansetron 4 Mg/2 Ml Inj) 4 mg IV Q8HR PRN PRN Reason: Nausea And Vomiting Last Admin: 01/16/25 02:24 Dose: 4 mg Documented By: KYLE Oxycodone HCl (Oxycodone Ir 5 Mg Tablet) 5 mg PO Q3H PRN PRN Reason: Pain, Moderate (4-6) Pantoprazole Sodium (Pantoprazole Dr 40 Mg Tablet) 40 mg PO DAILY [facility] Potassium Chloride (Potassium Chloride 10 Meq Tab) 10 meq PO DAILY [facility] Pramipexole Dihydrochloride (Pramipexole 0.25 Mg Tablet) 0.5 mg PO BEDTIME [facility] Pregabalin (Pregabalin 75 Mg Capsule) 150 mg PO BEDTIME [facility] Ropinirole HCl (Ropinirole 1 Mg Tablet) 2 mg PO BID [facility] Sertraline HCl (Sertraline 50 Mg Tablet) 50 mg PO DAILY ANNAMARIE Spironolactone (Spironolactone 25 Mg Tablet) 25 mg PO BID ANNAMARIE Discontinued Medications Azithromycin (Azithromycin 250 Mg Tablet) 1,000 mg PO NOW ONE Stop: 01/15/25 18:47 Last Admin: 01/15/25 19:17 Dose: 1,000 mg Documented By: URMILA Dexamethasone (Dexamethasone 10 Mg/Ml Vial) 10 mg IV NOW ONE Stop: 01/15/25 19:33 Last Admin: 01/15/25 19:43 Dose: 10 mg Documented By: JOHNSON Azithromycin 500 mg/ Dextrose 250 mls @ 250 mls/hr IV Q24H ANNAMARIE Last Admin: 01/16/25 00:29 Dose: Not Given Documented By: JOHNSON Remdesivir 200 mg/ Sodium (Chloride) 250 mls @ 250 mls/hr IV NOW ONE Stop: 01/15/25 23:29 Last Infusion: 01/15/25 23:59 Dose: Infused Documented By: Admin: 01/15/25 22:52 Dose: 250 mls/hr Documented By: JOHNSON Vital Signs Vital signs: Vital Signs - 8 hr 01/15/25 17:40 01/15/25 17:41 01/15/25 17:41 Temperature 99.1 F Pulse Rate 82 88 Respiratory Rate 82 H Blood Pressure 144/69 H 144/67 H Pulse Oximetry 98 97 Oxygen Delivery Method Non -Rebreather Non -Rebreather Oxygen Flow Rate 10 Fraction of Inspired Oxygen 01/15/25 18:00 01/15/25 18:00 01/15/25 18:02 Temperature Pulse Rate 83 83 Respiratory Rate 25 H 24 Blood Pressure 144/65 H 144/67 H Pulse Oximetry 96 96 Oxygen Delivery Method Non -Rebreather Heated High Flow Oxygen Flow Rate 10 45 Fraction of Inspired Oxygen 40 01/15/25 18:30 01/15/25 18:31 01/15/25 18:31 Temperature Pulse Rate 80 81 Respiratory Rate 20 21 Blood Pressure 103/52 L Pulse Oximetry 95 96 Oxygen Delivery Method Oxygen Flow Rate Fraction of Inspired Oxygen 01/15/25 19:00 01/15/25 19:00 01/15/25 19:24 Temperature Pulse Rate 78 Respiratory Rate 19 Blood Pressure 105/48 L Pulse Oximetry 95 Oxygen Delivery Method High Flow Nasal Cannula Oxygen Flow Rate 45 Fraction of Inspired Oxygen 01/15/25 19:30 01/15/25 19:30 Temperature Pulse Rate 72 Respiratory Rate 17 Blood Pressure 110/56 L Pulse Oximetry 94 Oxygen Delivery Method High Flow Nasal Cannula Oxygen Flow Rate 45 Fraction of Inspired Oxygen MDM - SOB/Dyspnea Lab Data Attestation: I reviewed the patient's lab results. Lab results narrative: White blood cell count 40003, hemoglobin 11.9, platelets adequate. Glucose 156. BUN 20 with creatinine 1.32. Serum CO2 23. Sodium 133 slight low, potassium 4.3 normal. Liver functions and lipase normal. Troponin negative/unmeasurable. Arterial blood gas on HFNC 40%/45L, shows pH 7.44 pCO2 34 PaO2 90. COVID positive, influenza negative. 01/15/25 17:42 01/15/25 17:42 Labs: Lab Results 01/15/25 01/15/25 01/15/25 Range/Units 17:41 17:42 18:31 WBC 15.3 H (4.5-11.0) X10^3/uL RBC 4.22 L (4.5-5.9) X10^6/uL Hgb 11.9 L (13.5-17.5) g/dL Hct 35.4 L (41-53) % MCV 83.9 (80-100) fL MCH 28.2 (26-34) PG MCHC 33.6 (30-36) % RDW 21.9 H (11.6-14.8) % Plt Count 130 L (150-400) X10^3/uL Neut % (Auto) 85.5 H (50-75) % Lymph % (Auto) 5.7 L (25-40) % Hitchcock % (Auto) 8.7 (3-14) % Eos % (Auto) 0.0 L (2-4) % Baso % (Auto) 0.1 (0-2) % Neut # (Auto) 45947 H (4614-7431) /uL Lymph # (Auto) 900 L (9433-7193) /uL Hitchcock # (Auto) 1300 H (0-900) /uL Eos # (Auto) 0 (0-450) /uL Baso # (Auto) 0 (0-100) /uL RBC Morphology See below Anisocytosis 3+ H PT 21.2 H (9.4-12.5) SECONDS INR 1.9 H (0.9-1.3) ABG Sample Site Right radial ABG pH 7.44 (7.35-7.45) ABG pCO2 34.3 L (35-45) mmHg ABG pO2 90 (80-100) mmHg ABG HCO3 23 (23-27) mmol/L ABG Total CO2 22 L (23-27) mmol/L ABG O2 Saturation 97 (95-100) % ABG Base Excess -0.5 (-2-3) mmol/L Grant Test Positive O2 Delivery Device High flow sid cannul FiO2 % 40.0 % % Sodium 133 L (137-145) mmol/L Potassium 4.3 (3.4-5.1) mmol/L Chloride 98 (98-107) mmol/L Carbon Dioxide 23 (22-32) mmol/L BUN 20 (9-20) mg/dL Creatinine 1.32 H (0.66-1.25) mg/dL Estimated GFR 56 L (>60) mL/min BUN/Creatinine Ratio 15.2 (6-22) Glucose 156 H (70-99) mg/dL Calcium 8.9 (8.4-10.2) mg/dL Total Bilirubin 0.9 (0.2-1.3) mg/dL AST 27 (17-59) IU/L ALT 18 (<50) IU/L Alkaline Phosphatase 78 (38-126) U/L Total Creatine Kinase 32 L (55-170) U/L Troponin I 0.014 (0.01-0.034) ng/mL Total Protein 7.6 (6.3-8.2) g/dL Albumin 4.2 (3.5-5.0) g/dL Globulin 3.4 (1.7-4.1) g/dL Albumin/Globulin Ratio 1.2 (1.0-2.8) Lipase 40 (23-300) U/L Imaging Data Chest x-ray: Radiologist's Impression: [address] [address] XRay Report Signed Patient: Erick Álvarez V MR#: [id number] : 1950 Acct:[id number] Age/Sex: 74 / M Date of Service: 01/15/25 Loc: ED Accession Number: [id number] Procedure: XR chest 1V Ordering Provider: Braden Thornton MD PROCEDURE: XR CHEST 1V INDICATIONS: chest pain TECHNIQUE: One view of the chest was acquired. COMPARISON: [facility], CR, XR CHEST 1V, 12/08/2024, 22:09. FINDINGS: Surgical changes and devices: Left chest wall AICD device with cardiac leads. TAVR. Lungs and pleura: Low lung volumes. No pleural effusions or pneumothorax. Mediastinum: Mediastinal contours appear normal. Heart size is enlarged. Bones and chest wall: No suspicious bony lesions. Overlying soft tissues appear unremarkable. IMPRESSION: Cardiomegaly. No focal dense airspace consolidation. Approved by: Carmen Biggs M.D.,Ph.D. on 01/15/2025 at 18:45 ECG Data Attestation: I personally reviewed and interpreted this ECG as follows: Interpretation: 1748, ventricular paced rhythm, rate 84. Biventricular pacemaker detected. QRS 164, QTC 510. MDM Narrative Medical decision making narrative: 74-year-old male senior care patient with history of AVR on chronic warfarin anticoagulation, pacemaker, CHF, CAD, diabetes, not usually on oxygen, 4 days duration cough with increasing shortness of breath, COVID swab at [facility] positive for COVID 2 days ago, increased shortness of breath, hypoxia, transported on non-rebreather oxygen by EMS. Transition to high-flow nasal cannula on arrival to ED with significant hypoxia. Feels improved on high-flow nasal cannula as though far. Denies chest pain. EKG, chest x-ray, labs pending. EKG with ventricular paced rhythm, rate 84. Chest x-ray shows pacemaker, overlying HFNC, history of aortic valve replacement. No definite infiltrates. ED wet read, await Radiology report. Lab data: White blood cell count 05854, hemoglobin 11.9, platelets adequate. Glucose 156. BUN 20 with creatinine 1.32. Serum CO2 23. Sodium 133 slight low, potassium 4.3 normal. Liver functions and lipase normal. Troponin negative/unmeasurable. Arterial blood gas on HFNC 40%/45L, shows pH 7.44 pCO2 34 PaO2 90. PT INR 1.9. COVID positive, influenza and RSV negative. Blood cultures requested, oral azithromycin, ABG on high-flow nasal cannula settings 40% FiO2 and 45 L/min flow rate show adequate PH and oxygenation without CO2 retention. Chest x-ray without pulmonary infiltrate, cardiomegaly noted. See radiology report. Consider admission, we will contact hospitalist. 193, case discussed with hospitalist Dr. Flores who accepts patient for admission, requests addition of IV steroid dexamethasone 10 mg, ordered. We will be initiating remdesivir and other treatments as inpatient. Admit to inpatient ICU on high-flow nasal cannula. Critical Care Time Critical Care Time Critical Care Time: Yes Total Critical Care Time: 35 Attestation: The high probability of a clinically significant, sudden or life threatening deterioration of the [cardiopulmonary] system(s) required my full and direct attention, intervention and personal management. The aggregate critical care time was [35] minutes. This time is in addition to time spent performing reported procedures but includes the following: [x] Data Review and interpretation [x] Patient assessment and monitoring of vital signs [x] Documentation [x] Medication orders and management Discharge Plan Departure Patient Disposition: Admitted As Inpatient Clinical Impression: COVID-19, Hypoxia Admit Date/Time: 01/15/25 19:36 Admit Provider: Sebastian Flores
[2025-01-15 18:16] LABS: Alanine Aminotransferase 18 IU/L (<50); Albumin 4.2 g/dL (3.5-5.0); Albumin Globulin Ratio 1.2 (1.0-2.8); Alkaline Phosphatase 78 U/L (38-126); Blood Urea Nitrogen 20 mg/dL (9-20); Calcium 8.9 mg/dL (8.4-10.2); Carbon Dioxide 23 mmol/L (22-32); Chloride 98 mmol/L (98-107); Creatine Kinase 32 U/L (55-170); Estimated Glomerular Filt Rate 56 mL/min (>60); Globulin 3.4 g/dL (1.7-4.1); Glucose 156 mg/dL (70-99); HEMOLYSIS < 15 (0-50); Lipase 40 U/L (23-300); Potassium 4.3 mmol/L (3.4-5.1); Sodium 133 mmol/L (137-145); Total Protein 7.6 g/dL (6.3-8.2)
[2025-01-15 18:28] LABS: Troponin I 0.014 ng/mL (0.01-0.034)
[2025-01-15 18:38] LABS: Allen Test for ABG Passed? Positive; Blood Gas Collection Site Right Radial; Delivery System High Flow Nas Cannul; HCO3 ABG 23 mmol/L (23-27); Oxygen Saturation ABG 97 % (95-100); PCO2 ABG 34.3 mmHg (35-45); PO2 ABG 90 mmHg (80-100); TCO2 ABG 22 mmol/L (23-27)
[2025-01-15 18:41] LABS: Add Manual Diff / Slide Review NO; Hematocrit 35.4 % (41-53); Hemoglobin 11.9 g/dL (13.5-17.5); Lymphocytes Absolute Auto 900 /uL (1100-4500); Mean Corpuscular HGB Conc 33.6 % (30-36); Mean Corpuscular Hemoglobin 28.2 PG (26-34); Mean Corpuscular Volume 83.9 fL (80-100); Platelet Count 130 X10^3/uL (150-400)
[2025-01-15 18:41] LABS: INR 1.9 (0.9-1.3); Prothrombin Time 21.2 SECONDS (9.4-12.5)
[2025-01-15 18:56] LABS: Anisocytosis 3+
[2025-01-15] MEDS: AZITHROMYCIN 250 MG TABLET 1000 MG PO (19:17)
[2025-01-15] MEDS: DEXAMETHASONE 10 MG/ML VIAL IV (19:43)
[2025-01-15 20:34] LABS: Troponin I 0.019 ng/mL (0.01-0.034)
[2025-01-15 20:44] LABS: Influenza A - CEPHEID Flu A NEGATIVE (NEGATIVE); Influenza B - CEPHEID Flu B NEGATIVE (NEGATIVE)
[2025-01-15 20:50] LABS: COVID-19 CEPHEID 4-PLEX PCR POSITIVE (Negative)
--- NOTE | 2025-01-15 22:45 | PC.NURSE ---
This float nurse goes to get 200mg remdesivir medication out of pyxis. One (100mg vial) pulled instead of two (100mg vials) pulled. [facility] pharmacist Matti called and made aware. Original unopened medication returned and new order placed. Correct amount of medication pulled. Confirmed with kallie Chino on how to reconstitute medication. Per pharmacist Matti draw out 40 cc from the 250mL 0.9% normal saline bag. Then reconstitute medication as per box instructions with 19ml of sterile water per each 100mg vial of remdesivir. Then draw up each reconstituted vial of the remedesivir and inject into 250mL 0.9% normal saline bag. Verified reconstitution of remdesivir with primer chargerASAD iRvera
[2025-01-15] MEDS: REMDESIVIR 200 MG in SODIUM CHLORIDE 0.9% 250 ML 250 MG IV (22:52)
[2025-01-16] VITALS (58 sets, daily range): BP systolic 101–176; BP diastolic 52–77; PULSE 60–68; RESP 12–35; TEMP 36; O2SAT 89–98; BMI 32.5
[2025-01-16] MEDS: ONDANSETRON 4 MG/2 ML INJ IV ×4 (02:24→20:16)
--- NOTE | 2025-01-16 03:22 | PC.NURSE ---
Incontinent care done, linens changed. No breakdown noted to alex area. Pt with R side nephrostomy tube and also voids. Pt transferred to hospital bed, and SCD's applied. Zofran given for c/o nausea. Pt now resting on HHFNC 29%
--- NOTE | 2025-01-16 06:40 | PM.HP.1 ---
History of Present Illness History of Present Illness Chief complaint: + covid/AFIB Narrative: 74 years old male with history of AVR on warfarin, CHF, CAD, diabetes mellitus type 2, pacemaker, hypertension, hyperlipidemia, presented to the ER with shortness of breath in the last several days. Found to be COVID-positive 2 days ago in the [facility]. In the ER he was found to be significantly hypoxic and was started on high flow nasal cannula. Denies any home oxygen use. Denies any chest pain, palpitations, fever, nausea, vomiting, abdominal pain, diarrhea or dysuria. Laboratory shows WBC 15.3, creatinine 1.32, sodium 133, potassium 4.3, troponin negative, blood gas on 40% of HFNC pH 7.44, [id number], PO290. COVID-positive, influenza and RSV negative. Chest x-ray shows no focal dense airspace consolidation. Given dexamethasone 10 mg IV and azithromycin. [facility] Medical History Cardiomyopathy DVT (deep venous thrombosis) History of left heart catheterization (12/2019) Atrial fibrillation Paroxysmal A-fib RBBB LAFB (left anterior fascicular block) First degree AV block History of transcatheter aortic valve replacement (TAVR) (08/01/18) Sleep apnea CAD (coronary artery disease) Stress incontinence Enlarged lymph node Chronic anticoagulation Androgen deprivation therapy Stress incontinence, male History of radiation therapy Hydronephrosis, right Prostate cancer Osteoarthritis Hypertension Gout Depression History of prostate cancer Arthritis GERD (gastroesophageal reflux disease) Diabetes Congestive heart failure Pacemaker Surgical History H/O insertion of nephrostomy tube AICD (automatic cardioverter/defibrillator) present (12/30/20) Hx of heart artery stent History of back surgery H/O aortic valve replacement Family History Mother Coronary artery disease involving bypass graft of transplanted heart Cancer Hypertension Social History marital status: number of children: 3 household members: none Previous occupational history: retired alcohol intake: former caffeine: Yes Meds Home Medications and Allergies Home Medications ?Medication ?Instructions ?Recorded ?Confirmed ?Type acetaminophen 325 mg tablet 650 mg PO Q4H PRN pain 06/13/22 01/16/25 History atorvastatin 40 mg tablet 60 mg PO BEDTIME 06/13/22 01/16/25 History calcium carbonate (Antacid 500 mg DAILY 06/13/22 10/10/24 History (calcium carbonate)) ferrous sulfate 325 mg (65 mg 325 mg PO DAILY 06/13/22 01/16/25 History iron) tablet furosemide 40 mg tablet 40 mg PO BID 06/13/22 01/16/25 History insulin lispro 100 unit/mL 2 sliding scale dose SUBCUT 06/13/22 01/16/25 History subcutaneous cartridge USEASDIRECTD lisinopril 2.5 mg tablet 2.5 mg PO DAILY 06/13/22 01/16/25 History metoprolol succinate 25 mg 12.5 mg PO DAILY 06/13/22 01/16/25 History tablet,extended release 24 hr pantoprazole 40 mg tablet,delayed 40 mg PO DAILY 06/13/22 01/16/25 History release (Protonix) ropinirole 1 mg tablet 2 mg PO BID 06/13/22 01/16/25 History sertraline 50 mg tablet (Zoloft) 50 mg PO DAILY 06/13/22 01/16/25 History tolterodine 4 mg capsule,extended 4 mg PO DAILY 06/13/22 01/16/25 History release 24 hr (Detrol LA) bicalutamide 50 mg tablet 50 mg PO DAILY 12/14/22 10/11/24 History ondansetron 4 mg disintegrating 4 mg PO Q6H PRN Nausea 12/14/22 01/16/25 History tablet spironolactone 25 mg tablet 25 mg PO DAILY 12/14/22 01/16/25 History hydrocodone 5 mg-acetaminophen 325 2 tab PO Q6H PRN pain #30 tabs 08/16/23 01/16/25 Rx mg tablet warfarin 6 mg tablet 6 mg PO 6XW ##0 11/22/23 10/10/24 History allopurinol 100 mg tablet 200 mg PO DAILY 10/10/24 01/16/25 History dextroamphetamine-amphetamine ER 10 mg PO QAM 10/10/24 01/16/25 History 10 mg 24hr capsule,extend release (Adderall XR) enzalutamide 40 mg tablet (Xtandi) 160 mg PO QAM Cancer treatment 10/10/24 10/11/24 History gabapentin 100 mg tablet 1,000 mg PO BEDTIME 10/10/24 01/16/25 History gabapentin 100 mg tablet 600 mg PO QAM 10/10/24 01/16/25 History gabapentin 300 mg tablet,extended 300 mg PO DAILY 10/10/24 01/16/25 History release 24 hr insulin glargine 100 unit/mL 13 unit SUBCUT BEDTIME 10/10/24 10/11/24 History subcutaneous solution oxycodone myristate 9 mg capsule 9 mg PO Q12H Pain 10/10/24 01/16/25 History sprinkle extended release 12 hr(DON'T CRUSH) (Xtampza ER) potassium chloride 10 mEq 10 meq PO DAILY 10/10/24 01/16/25 History tablet,extended release pramipexole 0.5 mg tablet 0.5 mg PO BEDTIME 10/10/24 01/16/25 History pregabalin 150 mg capsule 150 mg PO BEDTIME 10/10/24 01/16/25 History warfarin 6 mg tablet 6 mg PO SEEINSTR 10/10/24 10/10/24 History enzalutamide 40 mg capsule (Xtandi) 160 mg PO DAILY 01/16/25 01/16/25 History melatonin 10 mg capsule 10 mg PO BEDTIME insomnia 01/16/25 01/16/25 History warfarin 4 mg tablet 8 mg PO .every evening a fib 01/16/25 01/16/25 History Allergies Allergy/AdvReac Type Severity Reaction Status Date / Time crab Allergy Severe Deathly Verified 12/07/24 23:49 sick aspartame Allergy Unknown Verified 12/07/24 23:49 carbidopa Allergy Hallucinations, Verified 12/07/24 23:49 anxiety morphine AdvReac Nausea/vomi Verified 12/07/24 23:49 ting Review of Systems Review of Systems ROS: Yes All systems reviewed with the patient and are negative except as otherwise documented Constitutional Constitutional: Reports as per HPI and Reports system reviewed and no additional complaints, except as documented Eyes Eyes: Reports as per HPI and Reports system reviewed and no additional complaints, except as documented ENT Ears, Nose, Mouth, and Throat: Yes as per HPI and Yes system reviewed and no additional complaints, except as documented Cardiovascular Cardiovascular: Reports system reviewed and no additional complaints, except as documented Respiratory Respiratory: Reports system reviewed and no additional complaints, except as documented Gastrointestinal Gastrointestinal: Reports system reviewed and no additional complaints, except as documented Genitourinary Genitourinary: Reports system reviewed and no additional complaints, except as documented Musculoskeletal Musculoskeletal: Reports system reviewed and no additional complaints, except as documented, Reports abnormal gait and Reports numbness Neurologic Neurologic: Reports system reviewed and no additional complaints, except as documented, Reports abnormal gait, Reports confusion and Reports numbness Psychiatric Psychiatric: Reports system reviewed and no additional complaints, except as documented and Reports confusion Exam Vital Signs (past 8 hours): - 01/15/25 23:00 01/15/25 23:01 01/15/25 23:01 Pulse Rate 60 60 Respiratory Rate 16 16 Blood Pressure 116/55 L Pulse Oximetry 97 97 Oxygen Delivery Method High Flow Nasal Cannula High Flow Nasal Cannula Oxygen Flow Rate 45 45 Fraction of Inspired Oxygen 01/15/25 23:30 01/15/25 23:30 01/16/25 00:00 Pulse Rate 60 67 Respiratory Rate 16 22 Blood Pressure 115/56 L Pulse Oximetry 92 96 Oxygen Delivery Method High Flow Nasal Cannula High Flow Nasal Cannula Oxygen Flow Rate 45 40 Fraction of Inspired Oxygen 01/16/25 00:01 01/16/25 00:01 01/16/25 00:30 Pulse Rate 66 65 Respiratory Rate 22 24 Blood Pressure 138/65 Pulse Oximetry 97 91 Oxygen Delivery Method High Flow Nasal Cannula High Flow Nasal Cannula Oxygen Flow Rate 40 40 Fraction of Inspired Oxygen 01/16/25 00:31 01/16/25 00:31 01/16/25 00:37 Pulse Rate 63 64 Respiratory Rate 24 Blood Pressure 172/71 H Pulse Oximetry 93 93 Oxygen Delivery Method High Flow Nasal Cannula Heated High Flow Oxygen Flow Rate 40 40 Fraction of Inspired Oxygen 01/16/25 01:00 01/16/25 01:01 01/16/25 01:01 Pulse Rate 65 65 Respiratory Rate 15 16 Blood Pressure 108/52 L Pulse Oximetry 94 93 Oxygen Delivery Method High Flow Nasal Cannula High Flow Nasal Cannula Oxygen Flow Rate 40 40 Fraction of Inspired Oxygen 01/16/25 01:30 01/16/25 01:30 01/16/25 02:00 Pulse Rate 67 Respiratory Rate 15 Blood Pressure 101/53 L 104/54 L Pulse Oximetry 94 Oxygen Delivery Method Oxygen Flow Rate Fraction of Inspired Oxygen 01/16/25 02:00 01/16/25 02:30 01/16/25 02:31 Pulse Rate 60 65 Respiratory Rate 18 30 H Blood Pressure 161/65 H Pulse Oximetry 96 98 Oxygen Delivery Method Oxygen Flow Rate Fraction of Inspired Oxygen 01/16/25 02:31 01/16/25 03:12 01/16/25 03:15 Pulse Rate 67 62 Respiratory Rate 32 H Blood Pressure 109/56 L Pulse Oximetry 98 97 Oxygen Delivery Method Oxygen Flow Rate Fraction of Inspired Oxygen 01/16/25 03:15 01/16/25 03:25 01/16/25 03:35 Pulse Rate 61 61 Respiratory Rate 25 H 14 Blood Pressure Pulse Oximetry 96 94 Oxygen Delivery Method Heated High Flow Heated High Flow Oxygen Flow Rate Fraction of Inspired Oxygen 28 01/16/25 04:00 01/16/25 04:01 01/16/25 04:04 Pulse Rate 61 61 61 Respiratory Rate 14 14 14 Blood Pressure Pulse Oximetry 94 94 95 Oxygen Delivery Method Oxygen Flow Rate Fraction of Inspired Oxygen 01/16/25 04:04 01/16/25 05:00 01/16/25 05:00 Pulse Rate 60 Respiratory Rate 12 Blood Pressure 133/57 L 126/62 Pulse Oximetry 97 Oxygen Delivery Method Oxygen Flow Rate Fraction of Inspired Oxygen 01/16/25 05:44 01/16/25 06:00 01/16/25 06:00 Pulse Rate 60 63 Respiratory Rate 16 13 Blood Pressure 147/65 H Pulse Oximetry 96 98 Oxygen Delivery Method Heated High Flow Oxygen Flow Rate Fraction of Inspired Oxygen 28 Fraction of Inspired Oxygen 28 SaO2/FiO2 Ratio 342 Oxygen Delivery Method Heated High Flow Oxygen Flow Rate 40 Narrative Exam Narrative: Exam Narrative: GENERAL: Well-developed patient, in mild distress. HEAD: Atraumatic. Normocephalic. EYES: Pupils equal round and reactive. Extraocular motions intact. No scleral icterus. No injection or drainage. ENT: Nose without bleeding, purulent drainage. Throat without erythema, tonsillar hypertrophy or exudate. Airway patent. High-flow nasal cannula in place. NECK: Trachea midline. Moves neck well. CARDIOVASCULAR: Regular rate and rhythm without murmurs, gallops, or rubs. RESPIRATORY: Clear to auscultation. Breath sounds equal bilaterally. Bibasilar rhonchi, no wheeze obvious. Some suprasternal and intercostal retractions mild. GASTROINTESTINAL: Abdomen soft, non-tender, nondistended. EXTREMITIES: No edema or joint tenderness. BACK: Nontender without deformity or crepitance. No flank tenderness. NEURO: AOx3. Motor functions grossly nonfocal. SKIN: No rash or erythema of visible areas Objective Labs 01/15/25 17:42 01/15/25 17:42 Labs: Laboratory Results - last 24 hr 01/15/25 01/15/25 01/15/25 17:41 17:42 18:31 WBC 15.3 H RBC 4.22 L Hgb 11.9 L Hct 35.4 L MCV 83.9 MCH 28.2 MCHC 33.6 RDW 21.9 H Plt Count 130 L Neut % (Auto) 85.5 H Lymph % (Auto) 5.7 L Stevens % (Auto) 8.7 Eos % (Auto) 0.0 L Baso % (Auto) 0.1 Neut # (Auto) 28398 H Lymph # (Auto) 900 L Stevens # (Auto) 1300 H Eos # (Auto) 0 Baso # (Auto) 0 RBC Morphology See below Anisocytosis 3+ H PT 21.2 H INR 1.9 H ABG Sample Site Right radial ABG pH 7.44 ABG pCO2 34.3 L ABG pO2 90 ABG HCO3 23 ABG Total CO2 22 L ABG O2 Saturation 97 ABG Base Excess -0.5 Grant Test Positive O2 Delivery Device High flow sid cannul FiO2 % 40.0 % Sodium 133 L Potassium 4.3 Chloride 98 Carbon Dioxide 23 BUN 20 Creatinine 1.32 H Estimated GFR 56 L BUN/Creatinine Ratio 15.2 Glucose 156 H POC Whole Bld Glucose Calcium 8.9 Total Bilirubin 0.9 AST 27 ALT 18 Alkaline Phosphatase 78 Total Creatine Kinase 32 L Troponin I 0.014 Total Protein 7.6 Albumin 4.2 Globulin 3.4 Albumin/Globulin Ratio 1.2 Lipase 40 SARS-CoV-2 (PCR) Influenza A (RT-PCR) Influenza B (RT-PCR) RSV (PCR) 01/15/25 01/15/25 19:38 23:00 WBC RBC Hgb Hct MCV MCH MCHC RDW Plt Count Neut % (Auto) Lymph % (Auto) Stevens % (Auto) Eos % (Auto) Baso % (Auto) Neut # (Auto) Lymph # (Auto) Stevens # (Auto) Eos # (Auto) Baso # (Auto) RBC Morphology Anisocytosis PT INR ABG Sample Site ABG pH ABG pCO2 ABG pO2 ABG HCO3 ABG Total CO2 ABG O2 Saturation ABG Base Excess Grant Test O2 Delivery Device FiO2 % Sodium Potassium Chloride Carbon Dioxide BUN Creatinine Estimated GFR BUN/Creatinine Ratio Glucose POC Whole Bld Glucose 171 H Calcium Total Bilirubin AST ALT Alkaline Phosphatase Total Creatine Kinase Troponin I 0.019 Total Protein Albumin Globulin Albumin/Globulin Ratio Lipase SARS-CoV-2 (PCR) Positive H Influenza A (RT-PCR) Flu a negative Influenza B (RT-PCR) Flu b negative RSV (PCR) Negative Assessment & Plan Assessment & Plan narrative: Acute respiratory failure with hypoxia secondary to covid-19 infection: -Admit to medical telemetry -Remdesivir per protocol -cont Abx for now -Dexamethasone 6 mg by mouth daily -Supplemental oxygen as needed -Air-born and contact isolation -Warfarine for DVT prophylaxis. -supportive management with BiPAP if condition worsens History of atrial fibrillation/pulmonary emboli. Restart warfarin and metoprolol, INR daily Diabetes mellitus type 2. Start insulin, ADA diet and monitor blood sugar closely CHF. Restart metoprolol, lisinopril, Lasix, spironolactone and potassium supplement. GERD. Restart omeprazole. Hypertension. Restart lisinopril and metoprolol Polyneuropathy. Restart gabapentin and Percocet as needed ADHD. Restart Adderall Hypertension. Restart atorvastatin. Gout. Restart allopurinol. Depression. Restart Zoloft. Prostate cancer. Restarted Xtampza I performed this consultation using real-time telehealth tools, including a live video connection between my location and the patient's location. As the provider for this telehealth service, I attest that I introduced myself to the patient, provided my credentials, disclosed my location, and determined that, based on a review of the patients chart and/or a discussion with members of the patient's treatment team, telemedicine via a real-time, two-way, interactive audio and video platform is an appropriate and effective means of providing this service. The patient and I mutually agree that this visit is appropriate for telemedicine as well. Disclaimer Note: To increase efficiency, your provider may have prepared this document using voice recognition technology. In that case, if a word or phrase is confusing, or does not make sense, this is likely due to a recognition error within the program which was not discovered during the provider?s review. If you believe an error has occurred, please notify your provider?s office at your earliest convenience, so we can correct any mistakes. Time-Based Coding :: [TOTAL MINUTES] spent with patient and on the chart (including review of chart, obtaining history, exam, reviewing outside data, placing orders, documenting exam and treatment plan, and counseling patient) on [DATE]. Quality VTE Deep Vein Thrombosis/Pulmonary Embolism Present on Admission: No MIPS - Admit I confirm the patient?s Advance Care Plan is present, Code status is documented, Surrogate decision maker is in patient?s record [If Yes, STOP here]: Yes MIPS - Meds 'Current medications' to include all prescriptions, [id number] products, herbals, cannabis/cannabidiol products, and vitamin/mineral/dietary (nutritional) supplements. I have utilized all available resources to obtain, update, or review the patient?s current medications. [If Yes, STOP here]: Yes
[2025-01-16 07:15] LABS: INR 1.9 (0.9-1.3); Prothrombin Time 21.7 SECONDS (9.4-12.5)
[2025-01-16 07:38] LABS: Alanine Aminotransferase 16 IU/L (<50); Albumin 3.5 g/dL (3.5-5.0); Albumin Globulin Ratio 1.2 (1.0-2.8); Alkaline Phosphatase 56 U/L (38-126); Blood Urea Nitrogen 26 mg/dL (9-20); Calcium 8.4 mg/dL (8.4-10.2); Carbon Dioxide 21 mmol/L (22-32); Chloride 102 mmol/L (98-107); Estimated Glomerular Filt Rate > 60 mL/min (>60); Globulin 3.0 g/dL (1.7-4.1); Glucose 188 mg/dL (70-99); Magnesium 1.9 mg/dL (1.6-2.3); Potassium 4.5 mmol/L (3.4-5.1); Sodium 134 mmol/L (137-145); Total Protein 6.5 g/dL (6.3-8.2)
[2025-01-16 07:41] LABS: HEMOLYSIS 56 (0-50)
--- NOTE | 2025-01-16 08:44 | PC.NURSE ---
Pharmacy contacted about questions regarding MAR/home meds. Belia to come to ED. Pt having nausea and vomiting. Pt given zofran.
--- NOTE | 2025-01-16 08:46 | PC.NURSE ---
Pt refusing to eat breakfast prior to n/v
[2025-01-16] MEDS: BICALUTAMIDE 50 MG TABLET PO (09:04)
--- NOTE | 2025-01-16 09:12 | PC.NURSE ---
pending medications from pharmacy
[2025-01-16] MEDS: FUROSEMIDE 40 MG TABLET PO ×2 (09:24→20:16)
[2025-01-16] MEDS: METOPROLOL ER 25 MG TABLET 12.5 MG PO (09:24)
[2025-01-16] MEDS: ROPINIROLE 1 MG TABLET 2 MG PO ×2 (10:10→20:16)
[2025-01-16] MEDS: OXYBUTYNIN 5 MG ER TAB 10 MG PO (10:12)
[2025-01-16] MEDS: PANTOPRAZOLE DR 40 MG TABLET PO (10:12)
[2025-01-16] MEDS: SPIRONOLACTONE 25 MG TABLET PO ×2 (10:14→20:16)
[2025-01-16] MEDS: POTASSIUM CHLORIDE 10 MEQ TAB PO (10:14)
[2025-01-16] MEDS: FERROUS SULFATE 325 MG TABLET PO (10:14)
[2025-01-16] MEDS: SERTRALINE 50 MG TABLET PO (10:14)
[2025-01-16] MEDS: GABAPENTIN 300 MG CAPSULE 600 MG PO (10:22)
--- NOTE | 2025-01-16 10:23 | PC.NURSE ---
3 meds waiting on pharm
[2025-01-16] MEDS: INSULIN LISPRO 100 UNIT/ML 3ML VIAL SUBCUT ×3 (14:00→22:23)
[2025-01-16] MEDS: CALCIUM CARBONATE 500 MG TAB PO (14:00)
[2025-01-16 14:03] LABS: MRSA (Nasal) PCR DETECTED (Not Detect)
--- NOTE | 2025-01-16 16:55 | PC.NURSE ---
Admit Note Patient arrived from ER via bed at 1130. Transferred to ICU bed via slider board. Pt drowsy but awakens to voice easily and is able to answer questions, oriented to self and place, reoriented on date. Short of breath on any exertion, nonproductive cough, lungs clear but decreased. On heated HFNC 35L and 25% FiO2 with Spo2 92-95%. V paced on tele in the 60s. Incontinent of urine, brief in place, nephrostomy tube to right flank, dressing is C/D/I and urine is clear yellow. Old scar at gluteal cleft visualized but area is not open and there is no erythema. Repositioning every 2 hours to offload pressure. Pt with glasses in place. Oriented to room and to call light/bed/tv controls. Call light within reach and bed alarm is on.
[2025-01-16] MEDS: WARFARIN 5 MG, WARFARIN 3 MG 8 MG PO (17:27)
--- NOTE | 2025-01-16 19:02 | PM.HP.1 ---
History of Present Illness History of Present Illness Date Patient Seen: 01/16/25 Chief complaint: + covid/AFIB Narrative: Chief complaint: Shortness for breath with acute hypoxic respiratory failure secondary to COVID 19 pneumonia with atrial fibrillation History of present illness: 01/16:74 year old male with history of AVR on warfarin, CHF, CAD, diabetes mellitus type 2, pacemaker, hypertension, hyperlipidemia, presented to the ER with shortness of breath in the last several days. Found to be COVID-[facility] ago [facility] the [facility]. In the ER he was found to be significantly hypoxic and was started on high flow nasal cannula. Denies any home oxygen use. Denies any chest pain, palpitations, fever, nausea, vomiting, abdominal pain, diarrhea or dysuria. Laboratory shows WBC 15.3, creatinine 1.32, sodium 133, potassium 4.3, troponin negative, blood gas on 40% of HFNC pH 7.44, [id number], PO290. COVID-positive, influenza and RSV negative. Chest x-ray shows no focal dense airspace consolidation. Given dexamethasone 10 mg IV and azithromycin. Past medical surgical family and social history please see bottom of the note: Current medications please see bottom of the note: Review of systems: Unable to participate due to dyspnea and confusion Physical exam: Ill-appearing male with labored respirations on high-flow nasal cannula 27% at 30 L HEENT unremarkable Heart sounds distant Lung sounds distant Abdomen nondistended Extremities no edema and no cyanosis Patient is alert but very fatigued appearing Assessment and plan: Acute respiratory failure with hypoxia secondary to covid-19 infection: -Admit to medical telemetry -Remdesivir per protocol -cont Abx for now -Dexamethasone 6 mg by mouth daily -Supplemental oxygen as needed -Air-born and contact isolation -Warfarine for DVT prophylaxis. -supportive management with BiPAP if condition worsens History of atrial fibrillation/pulmonary emboli. Restart warfarin and metoprolol, INR daily Diabetes mellitus type 2. Start insulin, ADA diet and monitor blood sugar closely CHF. Restart metoprolol, lisinopril, Lasix, spironolactone and potassium supplement. GERD. Restart omeprazole. Hypertension. Restart lisinopril and metoprolol Polyneuropathy. Restart gabapentin and Percocet as needed ADHD. Restart Adderall Gout. Restart allopurinol. Depression. Restart Zoloft. Prostate cancer. Restarted Xtampza DVT prophylaxis: Covered with warfarin Code status: Do not resuscitate 75 minutes were involved in the management this patient both [id number] evaluation interview examination review of imaging and laboratory results and discussion [facility] Medical History Cardiomyopathy DVT (deep venous thrombosis) History of left heart catheterization (12/2019) Atrial fibrillation Paroxysmal A-fib RBBB LAFB (left anterior fascicular block) First degree AV block History of transcatheter aortic valve replacement (TAVR) (08/01/18) Sleep apnea CAD (coronary artery disease) Stress incontinence Enlarged lymph node Chronic anticoagulation Androgen deprivation therapy Stress incontinence, male History of radiation therapy Hydronephrosis, right Prostate cancer Osteoarthritis Hypertension Gout Depression History of prostate cancer Arthritis GERD (gastroesophageal reflux disease) Diabetes Congestive heart failure Pacemaker Surgical History H/O insertion of nephrostomy tube AICD (automatic cardioverter/defibrillator) present (12/30/20) Hx of heart artery stent History of back surgery H/O aortic valve replacement Family History Mother Coronary artery disease involving bypass graft of transplanted heart Cancer Hypertension Social History marital status: number of children: 3 household members: none Previous occupational history: retired Smoking Status: Former smoker alcohol intake: former caffeine: Yes Meds Home Medications and Allergies Home Medications ?Medication ?Instructions ?Recorded ?Confirmed ?Type acetaminophen 325 mg tablet 650 mg PO Q4H PRN pain 06/13/22 01/16/25 History atorvastatin 40 mg tablet 60 mg PO BEDTIME 06/13/22 01/16/25 History calcium carbonate (Antacid 500 mg PO DAILY 06/13/22 01/16/25 History (calcium carbonate)) ferrous sulfate 325 mg (65 mg 325 mg PO DAILY 06/13/22 01/16/25 History iron) tablet furosemide 40 mg tablet 40 mg PO BID 06/13/22 01/16/25 History insulin lispro 100 unit/mL 2 sliding scale dose SUBCUT 06/13/22 01/16/25 History subcutaneous cartridge USEASDIRECTD lisinopril 2.5 mg tablet 2.5 mg PO DAILY 06/13/22 01/16/25 History metoprolol succinate 25 mg 12.5 mg PO DAILY 06/13/22 01/16/25 History tablet,extended release 24 hr pantoprazole 40 mg tablet,delayed 40 mg PO DAILY 06/13/22 01/16/25 History release (Protonix) ropinirole 1 mg tablet 2 mg PO BID 06/13/22 01/16/25 History sertraline 50 mg tablet (Zoloft) 50 mg PO DAILY 06/13/22 01/16/25 History tolterodine 4 mg capsule,extended 4 mg PO DAILY 06/13/22 01/16/25 History release 24 hr (Detrol LA) bicalutamide 50 mg tablet 50 mg PO DAILY 12/14/22 01/16/25 History ondansetron 4 mg disintegrating 4 mg PO Q6H PRN Nausea 12/14/22 01/16/25 History tablet spironolactone 25 mg tablet 25 mg PO DAILY 12/14/22 01/16/25 History hydrocodone 5 mg-acetaminophen 325 2 tab PO Q6H PRN pain #30 tabs 08/16/23 01/16/25 Rx mg tablet allopurinol 100 mg tablet 200 mg PO DAILY 10/10/24 01/16/25 History dextroamphetamine-amphetamine ER 10 mg PO QAM 10/10/24 01/16/25 History 10 mg 24hr capsule,extend release (Adderall XR) enzalutamide 40 mg tablet (Xtandi) 160 mg PO QAM Cancer treatment 10/10/24 01/16/25 History gabapentin 100 mg tablet 1,000 mg PO BEDTIME 10/10/24 01/16/25 History gabapentin 100 mg tablet 600 mg PO QAM 10/10/24 01/16/25 History insulin glargine 100 unit/mL 13 unit SUBCUT BEDTIME 10/10/24 01/16/25 History subcutaneous solution oxycodone myristate 9 mg capsule 9 mg PO Q12H Pain 10/10/24 01/16/25 History sprinkle extended release 12 hr(DON'T CRUSH) (Xtampza ER) potassium chloride 10 mEq 10 meq PO DAILY 10/10/24 01/16/25 History tablet,extended release pramipexole 0.5 mg tablet 0.5 mg PO BEDTIME 10/10/24 01/16/25 History pregabalin 150 mg capsule 150 mg PO BEDTIME 10/10/24 01/16/25 History warfarin 6 mg tablet 6 mg PO SEEINSTR 10/10/24 01/16/25 History enzalutamide 40 mg capsule (Xtandi) 160 mg PO DAILY 01/16/25 01/16/25 History gabapentin 300 mg capsule 300 mg PO 1500 01/16/25 01/16/25 History melatonin 10 mg capsule 10 mg PO BEDTIME insomnia 01/16/25 01/16/25 History warfarin 4 mg tablet 8 mg PO QPM a fib 01/16/25 01/16/25 History Allergies Allergy/AdvReac Type Severity Reaction Status Date / Time crab Allergy Severe Deathly Verified 12/07/24 23:49 sick aspartame Allergy Unknown Verified 12/07/24 23:49 carbidopa Allergy Hallucinations, Verified 12/07/24 23:49 anxiety morphine AdvReac Nausea/vomi Verified 12/07/24 23:49 ting Exam Vital Signs (past 8 hours): - 01/16/25 11:18 01/16/25 11:19 01/16/25 11:33 Temperature Pulse Rate 65 60 Respiratory Rate 32 H 34 H Blood Pressure 158/77 H Pulse Oximetry 93 95 Oxygen Delivery Method Oxygen Flow Rate Fraction of Inspired Oxygen 01/16/25 11:33 01/16/25 11:35 01/16/25 11:40 Temperature 96.8 F L Pulse Rate 61 61 Respiratory Rate 18 35 H Blood Pressure 176/77 H 176/77 H Pulse Oximetry 95 Oxygen Delivery Method Heated High Flow Oxygen Flow Rate 35 Fraction of Inspired Oxygen 01/16/25 11:49 01/16/25 13:02 01/16/25 13:30 Temperature Pulse Rate 62 60 60 Respiratory Rate 30 H 15 17 Blood Pressure 176/77 H Pulse Oximetry 94 95 96 Oxygen Delivery Method Oxygen Flow Rate Fraction of Inspired Oxygen 01/16/25 13:30 01/16/25 14:00 01/16/25 14:00 Temperature Pulse Rate 65 Respiratory Rate 28 H Blood Pressure 135/66 153/68 H Pulse Oximetry 96 Oxygen Delivery Method Oxygen Flow Rate Fraction of Inspired Oxygen 01/16/25 14:30 01/16/25 14:30 01/16/25 14:54 Temperature Pulse Rate 60 Respiratory Rate 18 Blood Pressure 166/76 H Pulse Oximetry 95 Oxygen Delivery Method Heated High Flow Oxygen Flow Rate Fraction of Inspired Oxygen 01/16/25 15:00 01/16/25 15:01 01/16/25 15:01 Temperature Pulse Rate 60 60 Respiratory Rate 14 14 Blood Pressure 129/63 Pulse Oximetry 91 93 Oxygen Delivery Method Oxygen Flow Rate Fraction of Inspired Oxygen 01/16/25 15:30 01/16/25 15:30 01/16/25 15:51 Temperature Pulse Rate 60 60 Respiratory Rate 15 16 Blood Pressure 128/65 128/65 Pulse Oximetry 89 L 95 Oxygen Delivery Method Heated High Flow Oxygen Flow Rate 35 Fraction of Inspired Oxygen 28 01/16/25 16:00 01/16/25 16:00 01/16/25 17:00 Temperature Pulse Rate 60 60 Respiratory Rate 13 15 Blood Pressure 142/74 H Pulse Oximetry 95 92 Oxygen Delivery Method Oxygen Flow Rate Fraction of Inspired Oxygen 01/16/25 17:00 Temperature Pulse Rate Respiratory Rate Blood Pressure 144/69 H Pulse Oximetry Oxygen Delivery Method Oxygen Flow Rate Fraction of Inspired Oxygen Fraction of Inspired Oxygen 28 SaO2/FiO2 Ratio 335 Oxygen Delivery Method Heated High Flow Oxygen Flow Rate 35 Objective Labs 01/15/25 17:42 01/16/25 06:22 Labs: Laboratory Results - last 24 hr 01/15/25 01/15/25 01/16/25 19:38 23:00 06:22 PT 21.7 H INR 1.9 H Sodium 134 L Potassium 4.5 Chloride 102 Carbon Dioxide 21 L BUN 26 H Creatinine 1.23 Estimated GFR > 60 BUN/Creatinine Ratio 21.1 Glucose 188 H POC Whole Bld Glucose 171 H Calcium 8.4 Magnesium 1.9 Total Bilirubin 0.6 AST 30 ALT 16 Alkaline Phosphatase 56 Troponin I 0.019 Total Protein 6.5 Albumin 3.5 Globulin 3.0 Albumin/Globulin Ratio 1.2 Nasal Screen MRSA (PCR) SARS-CoV-2 (PCR) Positive H Influenza A (RT-PCR) Flu a negative Influenza B (RT-PCR) Flu b negative RSV (PCR) Negative 01/16/25 01/16/25 01/16/25 08:31 12:53 12:59 PT INR Sodium Potassium Chloride Carbon Dioxide BUN Creatinine Estimated GFR BUN/Creatinine Ratio Glucose POC Whole Bld Glucose 159 H 152 H Calcium Magnesium Total Bilirubin AST ALT Alkaline Phosphatase Troponin I Total Protein Albumin Globulin Albumin/Globulin Ratio Nasal Screen MRSA (PCR) Detected H SARS-CoV-2 (PCR) Influenza A (RT-PCR) Influenza B (RT-PCR) RSV (PCR) 01/16/25 17:07 PT INR Sodium Potassium Chloride Carbon Dioxide BUN Creatinine Estimated GFR BUN/Creatinine Ratio Glucose POC Whole Bld Glucose 155 H Calcium Magnesium Total Bilirubin AST ALT Alkaline Phosphatase Troponin I Total Protein Albumin Globulin Albumin/Globulin Ratio Nasal Screen MRSA (PCR) SARS-CoV-2 (PCR) Influenza A (RT-PCR) Influenza B (RT-PCR) RSV (PCR) Assessment & Plan Time-Based Coding :: [TOTAL MINUTES] spent with patient and on the chart (including review of chart, obtaining history, exam, reviewing outside data, placing orders, documenting exam and treatment plan, and counseling patient) on [DATE]. Quality VTE Deep Vein Thrombosis/Pulmonary Embolism Present on Admission: No
[2025-01-16] MEDS: AZITHROMYCIN 500 MG in DEXTROSE 5% IN WATER 250 ML 250 MG IV (20:15)
[2025-01-16] MEDS: DOCUSATE 100 MG CAPSULE PO (20:16)
[2025-01-16] MEDS: GABAPENTIN 300 MG CAPSULE 900 MG PO (20:16)
[2025-01-16] MEDS: GABAPENTIN 100 MG CAPSULE PO (20:17)
[2025-01-16] MEDS: PRAMIPEXOLE 0.25 MG TABLET 0.5 MG PO (20:17)
[2025-01-16] MEDS: ATORVASTATIN 20 MG TABLET 60 MG PO (20:17)
[2025-01-16] MEDS: PREGABALIN 75 MG CAPSULE 150 MG PO (20:17)
[2025-01-16] MEDS: REMDESIVIR 100 MG in SODIUM CHLORIDE 0.9% 250 ML 250 MG IV (22:02)
[2025-01-16] MEDS: INSULIN GLARGINE 100 UNIT/ML 3ML PEN 13 UNIT SUBCUT (22:23)
[2025-01-17] VITALS (34 sets, daily range): BP systolic 107–188; BP diastolic 53–79; PULSE 59–84; RESP 13–34; TEMP 36.1–36.6; O2SAT 92–97
[2025-01-17] MEDS: HYDROCODONE/ACET 5/325 TABLET 2 TAB PO (02:13)
[2025-01-17] MEDS: GABAPENTIN 300 MG CAPSULE 600 MG PO ×2 (08:34→16:14)
[2025-01-17] MEDS: CALCIUM CARBONATE 500 MG TAB PO (08:35)
[2025-01-17] MEDS: FERROUS SULFATE 325 MG TABLET PO (08:35)
[2025-01-17] MEDS: FUROSEMIDE 40 MG TABLET PO ×2 (08:36→21:38)
[2025-01-17] MEDS: METOPROLOL ER 25 MG TABLET 12.5 MG PO (08:37)
[2025-01-17] MEDS: OXYBUTYNIN 5 MG ER TAB 10 MG PO (08:37)
[2025-01-17] MEDS: ROPINIROLE 1 MG TABLET 2 MG PO ×2 (08:37→21:38)
[2025-01-17] MEDS: PANTOPRAZOLE DR 40 MG TABLET PO (08:39)
[2025-01-17] MEDS: SPIRONOLACTONE 25 MG TABLET PO ×2 (08:39→21:38)
[2025-01-17] MEDS: DOCUSATE 100 MG CAPSULE PO ×2 (08:40→21:38)
[2025-01-17] MEDS: SERTRALINE 50 MG TABLET PO (08:40)
[2025-01-17] MEDS: INSULIN LISPRO 100 UNIT/ML 3ML VIAL SUBCUT ×5 (08:40→16:18)
[2025-01-17] MEDS: POTASSIUM CHLORIDE 10 MEQ TAB PO (08:40)
[2025-01-17] MEDS: BICALUTAMIDE 50 MG TABLET PO (08:40)
[2025-01-17 08:57] LABS: INR 2.5 (0.9-1.3); Prothrombin Time 27.6 SECONDS (9.4-12.5)
[2025-01-17] MEDS: ONDANSETRON 4 MG/2 ML INJ IV ×2 (08:59→22:56)
[2025-01-17 09:06] LABS: Alanine Aminotransferase 19 IU/L (<50); Albumin 3.3 g/dL (3.5-5.0); Albumin Globulin Ratio 1.3 (1.0-2.8); Alkaline Phosphatase 64 U/L (38-126); Blood Urea Nitrogen 32 mg/dL (9-20); Calcium 8.6 mg/dL (8.4-10.2); Carbon Dioxide 21 mmol/L (22-32); Chloride 103 mmol/L (98-107); Estimated Glomerular Filt Rate > 60 mL/min (>60); Globulin 2.6 g/dL (1.7-4.1); Glucose 120 mg/dL (70-99); HEMOLYSIS < 15 (0-50); Magnesium 2.2 mg/dL (1.6-2.3); Potassium 3.8 mmol/L (3.4-5.1); Sodium 133 mmol/L (137-145); Total Protein 5.9 g/dL (6.3-8.2)
--- NOTE | 2025-01-17 14:57 | OT.IP.EVAL ---
Current Diagnoses COVID-19 (01/15/25) Past Medical History (Last Reviewed 11/03/24 @ 08:36 by Keshia Kate DO) Androgen deprivation therapy Arthritis Atrial fibrillation CAD (coronary artery disease) Cardiomyopathy Chronic anticoagulation Congestive heart failure Depression Diabetes DVT (deep venous thrombosis) Enlarged lymph node First degree AV block GERD (gastroesophageal reflux disease) Gout History of left heart catheterization (12/2019) History of prostate cancer History of radiation therapy History of transcatheter aortic valve replacement (TAVR) (08/01/18) Hydronephrosis, right Hypertension LAFB (left anterior fascicular block) Osteoarthritis Pacemaker Paroxysmal A-fib Prostate cancer RBBB Sleep apnea Stress incontinence Stress incontinence, male Surgical History (Last Reviewed 11/03/24 @ 08:36 by Keshia Kate DO) AICD (automatic cardioverter/defibrillator) present (12/30/20) H/O aortic valve replacement H/O insertion of nephrostomy tube History of back surgery Hx of heart artery stent Occupational Therapy Inpatient Evaluation/Re-Eval M1 PT/OT-IP Prior Functional Status Start: 01/17/25 14:43 Freq: NEEDED Status: Active Protocol: Document 01/17/25 14:43 [facility] (Rec: 01/17/25 14:56 [facility] Desktop) Medical Review Prior Functional Status Communication I Mobility and Gait Use of 4ww in the room and his WC for longer distances. Activities of Daily Pt states able to do basic ADL's and needing SBA for Living and IADL's showering needs. Social History Household Members none Living Arrangements Assisted Living Home Equipment Grab Bars Near Toilet,Grab Bars In Shower Additional Social Pt lives at [facility]. History Comment M2 OT-IP Current Condition Start: 01/17/25 14:43 Freq: Status: Active Protocol: Document 01/17/25 14:43 [facility] (Rec: 01/17/25 14:56 [facility] Desktop) Occupational Therapy Current Condition Current Condition Evaluation Date 01/17/25 Treatment Diagnosis COVID+PNA/A-fib Diagnosis Onset Date 01/15/25 M3 OT- IP Subjective and Pain Start: 01/17/25 14:43 Freq: Status: Active Protocol: Document 01/17/25 14:43 [facility] (Rec: 01/17/25 14:56 [facility] Desktop) OT- Subjective Occupational Therapy Visit Type Type Initial Evaluation Visit Start Time 14:15 Visit Stop Time 14:42 Occupational Therapy Visit Comments Patient Comments Pt agreed to get up to change out his brief and use the urinal. Patient/Caregiver TO get better and stronger. Goals OT Pain Assessment Pain When Pain Assessed During Mobility Pain Present Pain Present Pain Reported Location Abdomen Pain Behaviors Facial Grimacing,Holding Area M4 OT- IP ADL's Start: 01/17/25 14:43 Freq: Status: Active Protocol: Document 01/17/25 14:43 [facility] (Rec: 01/17/25 14:56 [facility] Desktop) OT [id number] Comments OT Self-Feeding Not at meal time. Comments OT ADL-Grooming Comments OT Grooming Comments Not observed. OT ADL-Oral Care Comments Oral Care Comments Not performed. OT ADL-Dressing General Eval Lower Body Dressing Maximum Assistance Ability Areas Needing Underpants/Brief,Socks Assistance Comments OT Dressing Comments Pt needing assist for his socks and tab brief as too tired to reach at this time. OT ADL-Toileting General Evaluation Toileting Ability Maximum Assistance Areas Needing Manage Clothing,Perform Perineal Hygiene Assistance Devices Toileting Assistive Urinal Devices Comments OT Toileting Assist to help change his brief and for hygiene needs. Comments Able to use the urinal with assist to hold in place while pt standing with the FWW. OT ADL-Bathing Comments OT Bathing Comments Not performed. M5 OT- IP IADL's Start: 01/17/25 14:43 Freq: Status: Active Protocol: Document 01/17/25 14:43 [facility] (Rec: 01/17/25 14:56 [facility] Desktop) OT-Instrumental Activities of Daily Living Home Safety Awareness Awareness of Need Good Awareness for Assistance at Home Ability to Problem Able to Problem Solve Solve Emergency Situations Medication Management Medication Caregiver Administers Management Meal Preparation Meal Preparation Caregiver Provides Assist Laborer Wharf Laborer Wharf Caregiver Provides Assist M6 OT- IP Functional Cognition Start: 01/17/25 14:43 Freq: Status: Active Protocol: Document 01/17/25 14:43 [facility] (Rec: 01/17/25 14:56 [facility] Desktop) Cognitive Factors Limiting Selfcare Function Cognitive Ability Level of Alertness Alert Patient Orientation Name,Place,Situation Attention Span Capable of Focused Attention,Capable of Sustained Ability Attention Ability to Follow Able to Follow One Step Commands Commands Cognitive Comments Cognitive Assessment Pt able to follow commands for ADL and mobility needs. Comments Pt is motivated to get better and willing to go to SNF. OT- Vision and Hearing OT- Vision Assessment Visual Attentiveness WFL Occular Pursuits WFL M7 OT- IP Mobility and Balance Start: 01/17/25 14:43 Freq: Status: Active Protocol: Document 01/17/25 14:43 [facility] (Rec: 01/17/25 14:56 [facility] Desktop) OT- Bed Mobility Assessment Supine to Sit Supine to Sit Assist Standby Assistance Sit to Supine Sit to Supine Assist Moderate Assistance OT-Transfer Assessment Sit to and From Stand Sit to and from Contact Guard Assistance Stand Devices Transfer Assistive Gait Belt,Front Wheeled Walker Devices Comments Mobility Comments Pt SBA to get to the edge of the bed with increased time. CGA to stand from the bed and vc to push up from the bed to the FWW. O2 on 2l and while up from 97-99%. Pt able to stand for several minutes with close SBA while assisting pt with brief and hygiene needs. Pt able to take a few side step up to the head of the bed with CGA. MODA to help get his legs back into bed. OT- Balance Assessment Sitting Balance and Reactions Static Sitting Good Balance Ability Dynamic Sitting Good Balance Ability Standing Balance and Reactions Static Standing Good Balance Ability Dynamic Standing Fair Balance Ability M8 OT- IP Objective Assessments Start: 01/17/25 14:43 Freq: Status: Active Protocol: Document 01/17/25 14:43 [facility] (Rec: 01/17/25 14:56 [facility] Desktop) OT Gross Range of Motion Upper Extremity Range of Motion ROM Impairments Decreased at end ROM OT Strength Upper Extremity Strength Assessment Bilaterally Impaired Comments Strength Comments BUE 3+/5 to 4-/5 from proximal to distal. M9 OT- IP Assessment and Plan Start: 01/17/25 14:43 Freq: Status: Active Protocol: Document 01/17/25 14:43 [facility] (Rec: 01/17/25 14:56 [facility] Desktop) OT Summary Assessment and Plan Potential Rehabilitation Good Potential Analytic Complexity Moderate at Evaluation Summary OT Impairments Balance,Functional Mobility,Grooming,Dressing,Toileting ,Bathing,Toilet Transfers,Shower Transfers,Activity Tolerance Progress Towards Slow Progress due to Medical Issues,Slow Progress due Goals to Activity Tolerance Assessment Summary Pt MOD complexity and main barriers are decreased activity tolerance and on 2L of O2 however from 97-99% when up on his feet. Pt needing assist for toileting and bed mobility due to weakness. Pt will benefit from short skilled rehab prior to going home. Otherwise will need increased assist at [facility]. Goals Self-Feeding Goal Independent Grooming Goal Independent Dressing Goal Independent Toileting Goal Independent Bathing Goal Standby Assistance Toilet Transfer Goal Independent Shower Transfer Goal Standby Assistance Days to Meet Goals 7 Frequency of Treatment Other frequency 5x/week Treatment Plan OT Treatment Plan ADL Training,Functional Mobility,Patient/Family Education,Discharge Planning Other Treatment LB dressing and standing ADL's at the sink. Recommendations and Next Treatment Focus Discharge Recommendations OT Discharge SNF Rehab,Home vs SNF, home with increased assist if pt progresses Recommendations Transportation Needs Private Vehicle,Wheelchair/Cabulance at Discharge
--- NOTE | 2025-01-17 15:20 | CM.DANOTE ---
DCP Assessment Note pt is a 74yo M admitted with SOB/COVID PCP Lizbeth Schaefer Payer [facility] and Medicaid PLISSE MACHINE OPERATOR reviewed EMR. per chart review, pt lives at [facility]. hx of SV and MV. was on heated high flow and now down to 3ltrs O2 during day. PT pending. OT =SNF for now, but could progress enough for back to [facility] once improved medically. per OT pt reported being open to [facility], concerns about someone bringing him his clothes from [facility]. PLISSE MACHINE OPERATOR emailed [facility] initial referral information. Acceptance pending. PASRR needed P: DC to [facility] pending acceptance/jones auth vs return to [facility]. CM team will continue to follow closely for DCP coordination JAYLEN Damon Discharge Planning/Care Management CM Discharge Assessment Start: 01/15/25 21:07 Freq: Status: Active Protocol: Document 01/17/25 15:18 [facility] (Rec: 01/17/25 15:20 [facility] [id number]) Discharge Planning Assessment Assigned Discharge JAYLEN Robledo Digital Strategy Manager DPOA/Assigned luis manuel Nice Designee Name Contact Information [phone] Advance Directives? Yes: POLST Advance Directives Yes on File History Provided By Patient,Medical Record Prior Living Assisted Living Arrangements Household Members none Type of Relies on Others transporation used prior to admit Facility Name [facility] Admitted From: Is patient alert and Yes oriented? Comment open to SNF, prefers [facility] Discharge Plan Longterm Facility Transportation facility transport Arrangement Referrals Initiated Longterm Additional Comment SNF vs return to [facility] pending medical improvement If patient plan is No SNF: Has PASSR been completed? Review Status In Process Please Provide Date 01/17/25 Initial DC Assessment Was Performed Next Review Type Continued Stay Review
[2025-01-17] MEDS: WARFARIN 5 MG, WARFARIN 1 MG 6 MG PO (16:22)
--- NOTE | 2025-01-17 17:54 | PC.NURSE ---
Pt reporting some nausea throughout shift, PRN's given. Sleepy or watching movies most of shift. R nephrostomy tube intact. Downgraded to acute care status. Coumadin home dose restarted.
--- NOTE | 2025-01-17 19:38 | PM.PN.1 ---
Subjective Subjective Date Patient Seen: 01/17/25 Interval history: Chief complaint: Shortness for breath with acute hypoxic respiratory failure secondary to COVID 19 pneumonia with atrial fibrillation History of present illness: 01/16:74 year old male with history of AVR on warfarin, CHF, CAD, diabetes mellitus type 2, pacemaker, hypertension, hyperlipidemia, presented to the ER with shortness of breath in the last several days. Found to be COVID-positive 2 days ago in the [place] [facility]. In the ER he was found to be significantly hypoxic and was started on high flow nasal cannula. Denies any home oxygen use. Denies any chest pain, palpitations, fever, nausea, vomiting, abdominal pain, diarrhea or dysuria. Laboratory shows WBC 15.3, creatinine 1.32, sodium 133, potassium 4.3, troponin negative, blood gas on 40% of HFNC pH 7.44, PQY006, PO290. COVID-positive, influenza and RSV negative. Chest x-ray shows no focal dense airspace consolidation. Given dexamethasone 10 mg IV and azithromycin. Past medical surgical family and social history please see bottom of the note: Current medications please see bottom of the note: Hospital course: 01/17: Patient feeling better less fatigued was able to taper off high-flow nasal cannula O2 3 L nasal cannula Review of systems: Unable to participate due to dyspnea and confusion Physical exam: No distress no labored respirations on 3 L nasal cannula HEENT unremarkable Heart sounds irregular irregular rhythm Lung sounds better air movement and vesicular breath sounds Abdomen nondistended Extremities no edema and no cyanosis Patient is alert but very fatigued appearing Assessment and plan: Acute respiratory failure with hypoxia secondary to covid-19 infection: -Remdesivir per protocol we will probably stop tomorrow -cont Abx for now -Dexamethasone 6 mg by mouth daily may continue after discharge tomorrow -Supplemental oxygen reduced -Air-born and contact isolation -Warfarine for DVT prophylaxis. History of atrial fibrillation/pulmonary emboli. Restart warfarin and metoprolol, INR daily Diabetes mellitus type 2. Start insulin, ADA diet and monitor blood sugar closely CHF. Restart metoprolol, lisinopril, Lasix, spironolactone and potassium supplement. GERD. Restart omeprazole. Hypertension. Restart lisinopril and metoprolol Polyneuropathy. Restart gabapentin and Percocet as needed ADHD. Restart Adderall Gout. Restart allopurinol. Depression. Restart Zoloft. Prostate cancer. Restarted Xtampza DVT prophylaxis: Covered with warfarin Code status: Do not resuscitate 35 minutes were involved in the management this patient both [id number] evaluation interview examination review of imaging and laboratory results and discussion Exam Vital Signs (past 8 hours): - 01/17/25 12:00 01/17/25 12:01 01/17/25 12:01 Temperature Pulse Rate 62 60 Respiratory Rate 21 22 Blood Pressure 143/63 H Pulse Oximetry 92 Oxygen Delivery Method Oxygen Flow Rate 3 01/17/25 13:00 01/17/25 13:42 01/17/25 14:00 Temperature Pulse Rate 62 62 Respiratory Rate 24 18 Blood Pressure Pulse Oximetry 92 Oxygen Delivery Method Nasal Cannula Oxygen Flow Rate 3 01/17/25 15:25 01/17/25 16:00 01/17/25 16:00 Temperature 97.9 F Pulse Rate 60 65 Respiratory Rate 13 34 H Blood Pressure Pulse Oximetry Oxygen Delivery Method Oxygen Flow Rate 01/17/25 16:18 01/17/25 16:18 01/17/25 17:00 Temperature Pulse Rate 60 60 Respiratory Rate 20 17 Blood Pressure 157/70 H Pulse Oximetry 96 Oxygen Delivery Method Oxygen Flow Rate 01/17/25 18:00 01/17/25 19:00 Temperature Pulse Rate 60 60 Respiratory Rate 20 18 Blood Pressure Pulse Oximetry Oxygen Delivery Method Oxygen Flow Rate Fraction of Inspired Oxygen 24 SaO2/FiO2 Ratio 395 Oxygen Delivery Method Nasal Cannula Oxygen Flow Rate 3 Objective Labs 01/15/25 17:42 01/17/25 08:40 Labs: Laboratory Results - last 24 hr 01/16/25 01/17/25 01/17/25 22:20 08:20 08:40 PT 27.6 H D INR 2.5 H Sodium 133 L Potassium 3.8 Chloride 103 Carbon Dioxide 21 L BUN 32 H Creatinine 1.18 Estimated GFR > 60 BUN/Creatinine Ratio 27.1 H Glucose 120 H POC Whole Bld Glucose 230 H 119 H D Calcium 8.6 Magnesium 2.2 Total Bilirubin 0.4 AST 31 ALT 19 Alkaline Phosphatase 64 Total Protein 5.9 L Albumin 3.3 L Globulin 2.6 Albumin/Globulin Ratio 1.3 01/17/25 01/17/25 12:14 16:09 PT INR Sodium Potassium Chloride Carbon Dioxide BUN Creatinine Estimated GFR BUN/Creatinine Ratio Glucose POC Whole Bld Glucose 162 H 218 H Calcium Magnesium Total Bilirubin AST ALT Alkaline Phosphatase Total Protein Albumin Globulin Albumin/Globulin Ratio PFSH Medical History Cardiomyopathy DVT (deep venous thrombosis) History of left heart catheterization (12/2019) Atrial fibrillation Paroxysmal A-fib RBBB LAFB (left anterior fascicular block) First degree AV block History of transcatheter aortic valve replacement (TAVR) (08/01/18) Sleep apnea CAD (coronary artery disease) Stress incontinence Enlarged lymph node Chronic anticoagulation Androgen deprivation therapy Stress incontinence, male History of radiation therapy Hydronephrosis, right Prostate cancer Osteoarthritis Hypertension Gout Depression History of prostate cancer Arthritis GERD (gastroesophageal reflux disease) Diabetes Congestive heart failure Pacemaker Surgical History H/O insertion of nephrostomy tube AICD (automatic cardioverter/defibrillator) present (12/30/20) Hx of heart artery stent History of back surgery H/O aortic valve replacement Family History Mother Coronary artery disease involving bypass graft of transplanted heart Cancer Hypertension Social History marital status: number of children: 3 household members: none Previous occupational history: retired Smoking Status: Former smoker alcohol intake: former caffeine: Yes Assessment & Plan Time-Based Coding :: [TOTAL MINUTES] spent with patient and on the chart (including review of chart, obtaining history, exam, reviewing outside data, placing orders, documenting exam and treatment plan, and counseling patient) on [DATE]. Quality VTE Deep Vein Thrombosis/Pulmonary Embolism Present on Admission: No
[2025-01-17] MEDS: AZITHROMYCIN 500 MG in DEXTROSE 5% IN WATER 250 ML 250 MG IV (21:32)
[2025-01-17] MEDS: PRAMIPEXOLE 0.25 MG TABLET 0.5 MG PO (21:37)
[2025-01-17] MEDS: PREGABALIN 75 MG CAPSULE 150 MG PO (21:37)
[2025-01-17] MEDS: ATORVASTATIN 20 MG TABLET 60 MG PO (21:38)
[2025-01-17] MEDS: GABAPENTIN 300 MG CAPSULE 900 MG PO (21:38)
[2025-01-17] MEDS: GABAPENTIN 100 MG CAPSULE PO (21:38)
[2025-01-17] MEDS: REMDESIVIR 100 MG in SODIUM CHLORIDE 0.9% 250 ML 250 MG IV (21:40)
[2025-01-17] MEDS: INSULIN GLARGINE 100 UNIT/ML 3ML PEN 13 UNIT SUBCUT (21:44)
[2025-01-18] VITALS (14 sets, daily range): BP systolic 130–145; BP diastolic 64–76; PULSE 60–69; RESP 15–37; TEMP 36.3–36.5; O2SAT 97–98
[2025-01-18] MEDS: ONDANSETRON 4 MG/2 ML INJ IV (07:35)
[2025-01-18] MEDS: INSULIN LISPRO 100 UNIT/ML 3ML VIAL SUBCUT ×4 (08:36→12:21)
[2025-01-18] MEDS: METOPROLOL ER 25 MG TABLET 12.5 MG PO (08:37)
[2025-01-18] MEDS: DOCUSATE 100 MG CAPSULE PO (08:37)
[2025-01-18] MEDS: BICALUTAMIDE 50 MG TABLET PO (08:37)
[2025-01-18] MEDS: CALCIUM CARBONATE 500 MG TAB PO (08:38)
[2025-01-18] MEDS: FERROUS SULFATE 325 MG TABLET PO (08:38)
[2025-01-18] MEDS: FUROSEMIDE 40 MG TABLET PO (08:38)
[2025-01-18] MEDS: SPIRONOLACTONE 25 MG TABLET PO (08:40)
[2025-01-18] MEDS: POTASSIUM CHLORIDE 10 MEQ TAB PO (08:40)
[2025-01-18] MEDS: SERTRALINE 50 MG TABLET PO (08:40)
[2025-01-18] MEDS: ROPINIROLE 1 MG TABLET 2 MG PO (08:40)
[2025-01-18] MEDS: OXYBUTYNIN 5 MG ER TAB 10 MG PO (08:40)
[2025-01-18] MEDS: PANTOPRAZOLE DR 40 MG TABLET PO (08:40)
[2025-01-18 08:43] LABS: INR 3.0 (0.9-1.3); Prothrombin Time 32.8 SECONDS (9.4-12.5)
[2025-01-18 08:49] LABS: Alanine Aminotransferase 13 IU/L (<50); Albumin 3.2 g/dL (3.5-5.0); Albumin Globulin Ratio 1.3 (1.0-2.8); Alkaline Phosphatase 62 U/L (38-126); Blood Urea Nitrogen 29 mg/dL (9-20); Calcium 8.5 mg/dL (8.4-10.2); Carbon Dioxide 26 mmol/L (22-32); Chloride 101 mmol/L (98-107); Estimated Glomerular Filt Rate > 60 mL/min (>60); Globulin 2.4 g/dL (1.7-4.1); Glucose 121 mg/dL (70-99); HEMOLYSIS < 15 (0-50); Magnesium 1.9 mg/dL (1.6-2.3); Potassium 3.8 mmol/L (3.4-5.1); Sodium 133 mmol/L (137-145); Total Protein 5.6 g/dL (6.3-8.2)
[2025-01-18] MEDS: GABAPENTIN 300 MG CAPSULE 600 MG PO (08:52)
--- NOTE | 2025-01-18 11:49 | P.DS_ITS ---
History of Present Illness History of Present Illness Date Patient Seen: 01/18/25 Chief complaint: + covid/AFIB Narrative: Chief complaint: Shortness for breath with acute hypoxic respiratory failure secondary to COVID 19 pneumonia with atrial fibrillation History of present illness: 01/16:74 year old male with history of AVR on warfarin, CHF, CAD, diabetes mellitus type 2, pacemaker, hypertension, hyperlipidemia, presented to the ER with shortness of breath in the last several days. Found to be COVID-positive 2 days ago in the [facility]. In the ER he was found to be significantly hypoxic and was started on high flow nasal cannula. Denies any home oxygen use. Denies any chest pain, palpitations, fever, nausea, vomiting, abdominal pain, diarrhea or dysuria. Laboratory shows WBC 15.3, creatinine 1.32, sodium 133, potassium 4.3, troponin negative, blood gas on 40% of HFNC pH 7.44, OPD050, PO290. COVID-positive, influenza and RSV negative. Chest x-ray shows no focal dense airspace consolidation. Given dexamethasone 10 mg IV and azithromycin. Past medical surgical family and social history please see bottom of the note: Hospital course: Patient responded very rapidly to treatment and was deescalated off of oxygen and was saturating on room air by the day of discharge and ambulating independently and discharge back to assisted living Review of systems: No fever or chills Minimal nonproductive cough No chest pain shortness for breath No dyspnea with exertion Physical exam: No acute distress on room air 97% saturated HEENT unremarkable Heart sounds distant Lung sounds clear Abdomen nondistended Extremities no edema and no cyanosis Patient is alert but very fatigued appearing Assessment and plan: Acute respiratory failure with hypoxia secondary to covid-19 infection: * Discharge to assisted living * Oral azithromycin and Decadron * Continue home medication 35 minutes were involved in the management this patient both [id number] evaluation interview examination review of imaging and laboratory results and discussion Discharge Providers Provider Date of admission: 01/15/25 19:36 Discharge Date: 01/18/25 Primary care physician: YAN Marcial Consults: 01/16/25 11:59 Consult to Dietitian, Adult Routine Comment: Reason For Exam: donna of 14 01/17/25 13:48 Consult to Occupational Therapy Evaluate & Treat Comment: Physician Instructions: Evaluate and treat Consult to Physical Therapy Evaluate & Treat Comment: Physician Instructions: Evaluate and Treat Discharge provider: Claude Duke MD Exam Vital Signs (past 8 hours): - 01/18/25 04:00 01/18/25 05:00 01/18/25 06:00 Temperature Pulse Rate 60 60 60 Respiratory Rate 19 26 H 15 Blood Pressure Pulse Oximetry Oxygen Delivery Method Oxygen Flow Rate Fraction of Inspired Oxygen 01/18/25 07:00 01/18/25 07:00 01/18/25 07:43 Temperature Pulse Rate 69 60 Respiratory Rate 37 H 20 Blood Pressure Pulse Oximetry Oxygen Delivery Method Room Air Oxygen Flow Rate Fraction of Inspired Oxygen 01/18/25 07:43 01/18/25 07:46 01/18/25 08:00 Temperature Pulse Rate 60 Respiratory Rate 18 Blood Pressure 145/67 H Pulse Oximetry 97 Oxygen Delivery Method Nasal Cannula Oxygen Flow Rate 1 Fraction of Inspired Oxygen 24 01/18/25 08:00 01/18/25 08:37 Temperature 97.3 F L Pulse Rate 64 Respiratory Rate Blood Pressure 145/67 H Pulse Oximetry Oxygen Delivery Method Oxygen Flow Rate Fraction of Inspired Oxygen Fraction of Inspired Oxygen 24 SaO2/FiO2 Ratio 404 Oxygen Delivery Method Nasal Cannula Oxygen Flow Rate 1 Objective Labs 01/15/25 17:42 01/18/25 08:20 Labs: Laboratory Results - last 24 hr 01/17/25 01/17/25 01/17/25 12:14 16:09 21:41 PT INR Sodium Potassium Chloride Carbon Dioxide BUN Creatinine Estimated GFR BUN/Creatinine Ratio Glucose POC Whole Bld Glucose 162 H 218 H 142 H Calcium Magnesium Total Bilirubin AST ALT Alkaline Phosphatase Total Protein Albumin Globulin Albumin/Globulin Ratio 01/18/25 01/18/25 07:41 08:20 PT 32.8 H D INR 3.0 H Sodium 133 L Potassium 3.8 Chloride 101 Carbon Dioxide 26 BUN 29 H Creatinine 1.19 Estimated GFR > 60 BUN/Creatinine Ratio 24.4 H Glucose 121 H POC Whole Bld Glucose 133 H Calcium 8.5 Magnesium 1.9 Total Bilirubin 0.5 AST 29 ALT 13 Alkaline Phosphatase 62 Total Protein 5.6 L Albumin 3.2 L Globulin 2.4 Albumin/Globulin Ratio 1.3 PFSH Medical History Cardiomyopathy DVT (deep venous thrombosis) History of left heart catheterization (12/2019) Atrial fibrillation Paroxysmal A-fib RBBB LAFB (left anterior fascicular block) First degree AV block History of transcatheter aortic valve replacement (TAVR) (08/01/18) Sleep apnea CAD (coronary artery disease) Stress incontinence Enlarged lymph node Chronic anticoagulation Androgen deprivation therapy Stress incontinence, male History of radiation therapy Hydronephrosis, right Prostate cancer Osteoarthritis Hypertension Gout Depression History of prostate cancer Arthritis GERD (gastroesophageal reflux disease) Diabetes Congestive heart failure Pacemaker Surgical History H/O insertion of nephrostomy tube AICD (automatic cardioverter/defibrillator) present (12/30/20) Hx of heart artery stent History of back surgery H/O aortic valve replacement Family History Mother Coronary artery disease involving bypass graft of transplanted heart Cancer Hypertension Social History marital status: number of children: 3 household members: none Previous occupational history: retired Smoking Status: Former smoker alcohol intake: former caffeine: Yes Discharge Plan Discharge Plan Patient Disposition: Assisted Living Discharge orders & Medications Discharge Orders: Discharge (Order); Ordered 01/18/25 Ordered By: Claude Duke Prescriptions: New dexamethasone 1 mg Tablet 6 mg PO DAILY Qty: 3 0RF azithromycin 250 mg tablet 250 mg PO DAILY 4 Days Qty: 4 0RF Rx Instructions: start on day 2 of therapy Continued acetaminophen 325 mg Tablet 650 mg PO Q4H PRN (Reason: pain) atorvastatin 40 mg Tablet 60 mg PO BEDTIME Antacid (calcium carbonate) 215 mg calcium (500 mg) Tablet,Chewable 500 mg PO DAILY Rx Instructions: AM furosemide 40 mg Tablet 40 mg PO BID ferrous sulfate 325 mg (65 mg iron) Tablet 325 mg PO DAILY metoprolol succinate 25 mg Tablet Extended Release 24 Hr 12.5 mg PO DAILY Rx Instructions: Hold for SBP < 100, HR < 60 lisinopril 2.5 mg Tablet 2.5 mg PO DAILY pantoprazole [Protonix] 40 mg Tablet,Delayed Release (Dr/Ec) 40 mg PO DAILY ropinirole 1 mg Tablet 2 mg PO BID tolterodine [Detrol LA] 4 mg Capsule,Extended Release 24hr 4 mg PO DAILY sertraline [Zoloft] 50 mg Tablet 50 mg PO DAILY insulin lispro 100 unit/mL Cartridge 2 sliding scale dose SUBCUT USEASDIRECTD Patient Comments: No coverage if CBG less than 150 spironolactone 25 mg tablet 25 mg PO DAILY bicalutamide 50 mg tablet 50 mg PO DAILY Rx Instructions: Prostate CA ondansetron 4 mg tablet,disintegrating 4 mg PO Q6H PRN (Reason: Nausea) hydrocodone-acetaminophen 5-325 mg tablet 2 tab PO Q6H PRN (Reason: pain) Qty: 30 0RF insulin glargine 100 unit/mL Solution 13 unit SUBCUT BEDTIME potassium chloride 10 mEq Tablet Extended Release 10 meq PO DAILY allopurinol 100 mg Tablet 200 mg PO DAILY pramipexole 0.5 mg Tablet 0.5 mg PO BEDTIME warfarin 6 mg Tablet 6 mg PO SEEINSTR Patient Comments: 6.5mg on Wednesday, 6mg rest dextroamphetamine-amphetamine [Adderall XR] 10 mg Capsule,Extended Release 24hr 10 mg PO QAM gabapentin 100 mg Tablet 1,000 mg PO BEDTIME gabapentin 100 mg Tablet 600 mg PO QAM pregabalin 150 mg Capsule 150 mg PO BEDTIME Xtampza ER 9 mg Cap,Sprinkl,Er12hr(Dont Crush) 9 mg PO Q12H Rx Instructions: must administer with a meal/food Xtandi 40 mg Tablet 160 mg PO QAM Xtandi 40 mg capsule 160 mg PO DAILY melatonin 10 mg capsule 10 mg PO BEDTIME warfarin 4 mg tablet 8 mg PO QPM gabapentin 300 mg capsule 300 mg PO 1500 Follow up/Referrals: Lizbeth Schaefer ARNP [Primary Care Provider, Nursing] Visit Report/Discharge Packet Stand Alone Forms: Patient Portal/API, Stroke Signs & Symptoms Discharge Data Primary Care Provider: Lizbeth Schaefer Quality VTE Deep Vein Thrombosis/Pulmonary Embolism Present on Admission: No
--- NOTE | 2025-01-18 12:09 | DIET.CONS ---
Dietary Consultation Note Admission Date: 01/15/2025 19:36 Assessment: 74 y M admitted for resp. failure and COVID 19. Dietitian consulted for low Kehinde score. Pt with COVID and to d/c today, EMR reviewed. No wounds noted in H&P. Hx of DM, majority of BG were <180. Non-significant weight changes. Low PO intakes at 25%. Ht: 175.26 cm Wt: 97.5 kg BMI: 32.5 UBW: 100.6 kg on 12/07/24, 102.5 kg on 10/09/24 (-5% weight loss in 3 months, non-severe) Last BM: () MNA: 10 Kehinde Score: 15 Diet: 01/16/25 Breakfast Carbohydrate Consistent Diet Diet Modifications: Carbohydrate level: Medium (3 CHO) Reflex DM orders: No Nutrition Percent Meal Consumed 25% 01/17/25 09:30 Percent Meal Consumed 25% 01/16/25 18:00 Labs: RBC 4.22 X10^6/uL (4.5-5.9) L 01/15/25 17:42 Hgb 11.9 g/dL (13.5-17.5) L 01/15/25 17:42 Hct 35.4 % (41-53) L 01/15/25 17:42 Creatinine 1.19 mg/dL (0.66-1.25) 01/18/25 08:20 Nutrition Diagnosis: Inadequate oral intakes r/t decreased appetite aeb recorded PO intakes for 3 days 25% or less Interventions: Pt discharging back to [facility], will add Ensure+ if d/c plan changes Electronically Signed by: Steff Dhaliwal 01/18/25 12:09 Clinical Dietitian [address] [id number]
--- NOTE | 2025-01-18 13:08 | PT.IIE ---
Current Diagnoses COVID-19 (01/15/25) Surgical History (Last Reviewed 11/03/24 @ 08:36 by Keshia Kate DO) AICD (automatic cardioverter/defibrillator) present (12/30/20) H/O aortic valve replacement H/O insertion of nephrostomy tube History of back surgery Hx of heart artery stent Medical History (Last Reviewed 11/03/24 @ 08:36 by Keshia Kate DO) Androgen deprivation therapy Arthritis Atrial fibrillation CAD (coronary artery disease) Cardiomyopathy Chronic anticoagulation Congestive heart failure Depression Diabetes DVT (deep venous thrombosis) Enlarged lymph node First degree AV block GERD (gastroesophageal reflux disease) Gout History of left heart catheterization (12/2019) History of prostate cancer History of radiation therapy History of transcatheter aortic valve replacement (TAVR) (08/01/18) Hydronephrosis, right Hypertension LAFB (left anterior fascicular block) Osteoarthritis Pacemaker Paroxysmal A-fib Prostate cancer RBBB Sleep apnea Stress incontinence Stress incontinence, male Physical Therapy Inpatient Evaluation/Re-Eval M1 PT/OT-IP Prior Functional Status Start: 01/17/25 14:43 Freq: NEEDED Status: Active Protocol: Document 01/18/25 13:02 MB (Rec: 01/18/25 13:08 MB Desktop) Medical Review Prior Functional Status Medical History Yes Reviewed Communication I Mobility and Gait Use of 4ww in the room and his WC for longer distances. Activities of Daily Pt states able to do basic ADL's and needing SBA for Living and IADL's showering needs. Social History Household Members none Living Arrangements Assisted Living Additional Social Not working, accessible living at [facility] History Comment Pt has nephrostomy for right kidney M2 PT-IP Current Condition Start: 01/18/25 13:01 Freq: NEEDED Status: Active Protocol: Document 01/18/25 13:02 MB (Rec: 01/18/25 13:08 MB Desktop) Physical Therapy Current Condition Current Condition Evaluation Date 01/18/25 Treatment Diagnosis COVID M3 PT-IP Subjective Start: 01/18/25 13:01 Freq: NEEDED Status: Active Protocol: Document 01/18/25 13:02 MB (Rec: 01/18/25 13:08 MB Desktop) Therapy Pain Assessment Pain When Pain Assessed At Rest Pain Present Pain Present Denied Pain M4 PT-IP Mobility and Gait Start: 01/18/25 13:01 Freq: NEEDED Status: Active Protocol: Document 01/18/25 13:02 MB (Rec: 01/18/25 13:08 MB Desktop) PT-Bed Mobility Assessment Rolling Type of Rolling Roll to Right Level of Assist Independent Supine to Sit Supine to Sit Independent Scooting Scooting to Edge of Standby Assistance Bed PT-Transfer Assessment Sit to and From Stand Sit to and from Standby Assistance Stand Equipment Transfer Assistive Gait Belt,Front Wheeled Walker Device Transfers Transfer Destination Chair,Toilet Transfer Technique Ambulation Transfer Ability Level of Assist Standby Assistance,1 Person Assistance,Use of Upper Extremities Gait Assessment Gait Gait Assistance Standby Assistance Required: Distance (Feet) 15 Assistive Devices Assistive Device Gait Belt,Front Wheeled Walker Gait Deviations General Gait Pattern Decreased Stride Length,Decreased Feet Clearance,Flexed Trunk Factors Limiting Gait Function Factors Limiting Decreased Activity Tolerance Gait Function Comments Gait Comments 15'x1, 10'x1, 5'x1 with RW in room Able to urinate standing at commode and wash hands at sink today with RW and SBA PT-Balance Assessment Sitting Balance and Reactions Static Sitting Normal Balance Ability Dynamic Sitting Good Balance Ability Standing Balance and Reactions Static Standing Good Balance Ability Dynamic Standing Good Balance Ability Device Used RW M5 PT-IP Objective Assessments Start: 01/18/25 13:01 Freq: NEEDED Status: Active Protocol: Document 01/18/25 13:02 MB (Rec: 01/18/25 13:08 MB Desktop) Orientation Orientation/Cognition Level of Alertness Alert Gross Range of Motion Upper Extremity ROM Impairments Defer to OT Lower Extremity ROM Assessment Within Functional Limits Strength Lower Extremity Strength Assessment Within Functional Limits Coordination Assessment Assessment Coordination NT Comments Sensation Assessment Comments Sensation Comments NT M7 PT-IP Assessment and Plan Start: 01/18/25 13:01 Freq: NEEDED Status: Active Protocol: Document 01/18/25 13:02 MB (Rec: 01/18/25 13:08 MB Desktop) PT Summary Assessment and Plan Potential Rehabilitation Fair Potential Status of Condition Evolving at Evaluation Summary Impairments Balance,Transfers,Gait,Activity Tolerance Assessment Summary Pt is a 74 y/o male adm with COVID. Pt reports he is I at [facility], uses RW in room and w/c for longer distances. He would like to d/c to SNF to maximize I. He currently requires SBA for transfers, dynamic balance and gait in room with RW today. He is no longer on O2 and has very slight WILSON today and no abnormalities in RR or HR on tele with mobility today. Goals Bed Mobility Goal Independent Transfer Goal Independent,Front Wheeled Walker Gait Goal Independent,Front Wheel Walker Gait Distance 30 Days to Meet Goals 5 Frequency of Treatment Frequency Of Once a Day Treatment Treatment Plan Physical Therapy Bed Mobility Training,Transfer Training,Gait Training, Treatment Plan Therapeutic Exercise,Balance Retraining,Discharge Planning,Hot or Cold Pack,Neuromuscular Re-ed, Coordination Retraining,Manual Therapy Recommendations To Nursing Amount of Assist Standby Assistance Needed Discharge Recommendations PT Discharge SNF Rehab Recommendations Transportation Needs Wheelchair/Cabulance at Discharge - PT assist x1
--- NOTE | 2025-01-18 13:15 | OT.IP.TRT ---
Current Diagnoses COVID-19 (01/15/25) Occupational Therapy Treatment Note M2 OT-IP Current Condition Start: 01/17/25 14:43 Freq: Status: Active Protocol: Document 01/17/25 14:43 [facility] (Rec: 01/17/25 14:56 [facility] Desktop) Occupational Therapy Current Condition Current Condition Evaluation Date 01/17/25 Treatment Diagnosis COVID+PNA/A-fib Diagnosis Onset Date 01/15/25 M3 OT- IP Subjective and Pain Start: 01/17/25 14:43 Freq: Status: Active Protocol: Document 01/18/25 13:15 [facility] (Rec: 01/18/25 13:21 [facility] Desktop) OT- Subjective Occupational Therapy Visit Type Type Treatment Note Visit Start Time 13:00 Visit Stop Time 13:10 Occupational Therapy Visit Comments Patient Comments Pt not wanting to shower but agreed to do oral care/ grooming needs. Patient/Caregiver To go to skilled rehab. Goals OT Pain Assessment Pain When Pain Assessed At Rest Pain Present Pain Present Pain Reported Location Back Pain Behaviors Facial Grimacing,Holding Area M4 OT- IP ADL's Start: 01/17/25 14:43 Freq: Status: Active Protocol: Document 01/18/25 13:15 [facility] (Rec: 01/18/25 13:21 [facility] Desktop) OT [id number]-[id number]-[id number] Comments OT Self-Feeding Not at meal time. Comments OT ADL-Grooming General Evaluation Grooming Ability Independent Comments OT Grooming Comments Able to do while standing at the sink. OT ADL-Oral Care General Eval Oral Care Ability Independent OT ADL-Dressing Comments OT Dressing Comments Not performed. M5 OT- IP IADL's Start: 01/17/25 14:43 Freq: Status: Active Protocol: Document 01/17/25 14:43 [facility] (Rec: 01/17/25 14:56 [facility] Desktop) OT-Instrumental Activities of Daily Living Home Safety Awareness Awareness of Need Good Awareness for Assistance at Home Ability to Problem Able to Problem Solve Solve Emergency Situations Medication Management Medication Caregiver Administers Management Meal Preparation Meal Preparation Caregiver Provides Assist Court Reporter Court Reporter Caregiver Provides Assist M6 OT- IP Functional Cognition Start: 01/17/25 14:43 Freq: Status: Active Protocol: Document 01/17/25 14:43 [facility] (Rec: 01/17/25 14:56 [facility] Desktop) Cognitive Factors Limiting Selfcare Function Cognitive Ability Level of Alertness Alert Patient Orientation Name,Place,Situation Attention Span Capable of Focused Attention,Capable of Sustained Ability Attention Ability to Follow Able to Follow One Step Commands Commands Cognitive Comments Cognitive Assessment Pt able to follow commands for ADL and mobility needs. Comments Pt is motivated to get better and willing to go to SNF. OT- Vision and Hearing OT- Vision Assessment Visual Attentiveness WFL Occular Pursuits WFL M7 OT- IP Mobility and Balance Start: 01/17/25 14:43 Freq: Status: Active Protocol: Document 01/18/25 13:15 [facility] (Rec: 01/18/25 13:21 [facility] Desktop) OT-Transfer Assessment Sit to and From Stand Sit to and from Standby Assistance Stand Transfers Transfer Ability Standby Assistance Technique Transfer Destination Chair Comments Mobility Comments Distal SBA and able to get to and from the sink on his own. Pt on RA at started at 100% and got SOB dropped to 95% for brief moment and increased back to 99%. Pt states feels 70% of his baseline. OT- Balance Assessment Sitting Balance and Reactions Static Sitting Normal Balance Ability Dynamic Sitting Normal Balance Ability Standing Balance and Reactions Static Standing Good Balance Ability Dynamic Standing Good Balance Ability M8 OT- IP Objective Assessments Start: 01/17/25 14:43 Freq: Status: Active Protocol: Document 01/17/25 14:43 [facility] (Rec: 01/17/25 14:56 [facility] Desktop) OT Gross Range of Motion Upper Extremity Range of Motion ROM Impairments Decreased at end ROM OT Strength Upper Extremity Strength Assessment Bilaterally Impaired Comments Strength Comments BUE 3+/5 to 4-/5 from proximal to distal. M9 OT- IP Assessment and Plan Start: 01/17/25 14:43 Freq: Status: Active Protocol: Document 01/18/25 13:15 [facility] (Rec: 01/18/25 13:21 [facility] Desktop) OT Summary Assessment and Plan Potential Rehabilitation Good Potential Analytic Complexity Moderate at Evaluation Summary OT Impairments Balance,Functional Mobility,Grooming,Dressing,Toileting ,Bathing,Toilet Transfers,Shower Transfers,Activity Tolerance Progress Towards Progressing Toward Goals Goals Assessment Summary Pt now on RA and able to do grooming/oral care need on his own. Pt will benefit from increased assist as needed and continue supervision for showers. Pt to go home with assist when medically stable. Pt may benefit from to improve overall activity tolerance. Goals Self-Feeding Goal Independent Grooming Goal Independent Dressing Goal Independent Toileting Goal Independent Bathing Goal Standby Assistance Toilet Transfer Goal Independent Shower Transfer Goal Standby Assistance Days to Meet Goals 3 Treatment Plan OT Treatment Plan ADL Training,Functional Mobility,Patient/Family Education,Discharge Planning Discharge Recommendations OT Discharge Home with Assistance,Home Health Recommendations Transportation Needs Private Vehicle,Wheelchair/Cabulance at Discharge
--- NOTE | 2025-01-18 13:49 | CM.DPNOTE ---
DC Note Discharge back to [facility] today via facility van. Signed med list faxed via [facility] to [facility] at [facility] [phone]. IMM reviewed and provided to patient. After multiple failed attempts to get in touch with a staff member at [facility], which included multiple messages to retirement administrator Cirilo Munoz [phone], ASAD Wallace received a call this afternoon from a [facility] staff member asking for a medical update on patient. RN explained patient had been discharged and was ready to be picked up. [facility] power screwdriver operator picked patient up at approx 2pm. Plan: Discharge back home to [facility] via facility van, patient remained agreeable to plan. JULIA
== END 2025-01-18 13:51 | DRG 177 ==
LOC: ED 19:34 → AC 19:38 → ICU 01-16 13:02
PROVIDERS: Admitting Provider Internal Medicine; Emergency Provider Emergency Medicine; PCP Nurse Practitioner Family; Referring Provider Emergency Medicine; Visit Provider Internal Medicine
DX: U07.1 COVID-19 (principal); J96.01 Acute respiratory failure with hypoxia; I48.91 Unspecified atrial fibrillation; I11.0 Hypertensive heart disease with heart failure; I50.9 Heart failure, unspecified; K21.9 Gastro-esophageal reflux disease without esophagitis; E11.42 Type 2 diabetes mellitus with diabetic polyneuropathy; F90.9 Attention-deficit hyperactivity disorder, unspecified type; M10.9 Gout, unspecified; F32.A Depression, unspecified; C61 Malignant neoplasm of prostate; Z66 Do not resuscitate; Z95.0 Presence of cardiac pacemaker; Z79.01 Long term (current) use of anticoagulants; Z87.891 Personal history of nicotine dependence; Z86.711 Personal history of pulmonary embolism; Z79.4 Long term (current) use of insulin
CPT/HCPCS: 36415; 36600; 71045; 80053; 82550; 82805; 82962; 83690; 83735; 84484; 85025; 85610; 87040; 87637; 87797; 93005; 94762; 96365; 96375; 97161; 97166; 97535; 99285; 99291; J0696; J1100; J1815; J2405

== ENCOUNTER → 2025-01-24 08:54 | Outpatient (ROUT) | payer MEDICARE, MEDICAID, SELFPAY ==
[2025-01-16 14:16] VITALS: BMI 32.5
[2025-01-24 09:26] LABS: INR 1.5 (0.9-1.3); Prothrombin Time 16.6 SECONDS (9.4-12.5)
== END ==
PROVIDERS: PCP Nurse Practitioner Family; Visit Provider Hospitalist
DX: I48.91 Unspecified atrial fibrillation (principal)
CPT/HCPCS: 36415; 85610

== ENCOUNTER → 2025-01-31 07:52 | Outpatient (ROUT) | payer MEDICARE, MEDICAID, SELFPAY ==
[2025-01-16 14:16] VITALS: BMI 32.5
[2025-01-31 08:17] LABS: INR 1.1 (0.9-1.3); Prothrombin Time 12.6 SECONDS (9.4-12.5)
== END ==
PROVIDERS: PCP Nurse Practitioner Family; Visit Provider Registered Nurse
DX: I48.91 Unspecified atrial fibrillation (principal); Z79.01 Long term (current) use of anticoagulants
CPT/HCPCS: 36415; 85610